=== PATIENT | female | born 1935 | race Caucasian/White ===

== ENCOUNTER → 2016-05-28 | Outpatient (CLI) | payer MEDICARE, BC ==
[~2016-05-28] MED LIST: AMIO200T2 PO; APIX5TAB; ATEN50TA PO; BUME0.5T11 PO; BUME1TAB17 PO; CALC-768 PO; DIVA500T37 PO; DONE5TAB19 PO; FERR324T PO; HYDR-4078 PO; LEVO112T7 PO; OMEP20CA4 PO; OSPE60TA2 PO; POLY17PO6 PO; POTA-81 PO; POTA10CA37 PO; PRAM1TAB3; PRED10TA PO; RIFA550T5 PO; SENN-152 PO; SERT-77 PO; VITA1CAP64 PO
== END ==
LOC: NWCC 08:37
PROVIDERS: ATTEND Internal Medicine
DX: L97.512 Non-pressure chronic ulcer of other part of right foot with fat layer exposed (principal); L60.0 Ingrowing nail; R60.0 Localized edema

== ENCOUNTER 2016-06-30 06:33 | Inpatient (IN) | payer MEDICARE, BC ==
[~2016-06-30] VITALS: Ht 160 cm; Wt 100.9 kg
[2016-06-30] VITALS (24 sets, daily range): BP systolic 88–186; BP diastolic 49–120; PULSE 60–75; RESP 15–35; TEMP 97.3; O2SAT 86–100; Ht 160 cm; Wt 100.9 kg
[~2016-06-30 06:33] MED LIST changes: -APIX5TAB; +APIX5TAB PO; -ATEN50TA PO; -BUME1TAB17 PO; -FERR324T PO; -POTA-81 PO; -PRAM1TAB3; +PRAM1TAB3 PO; -PRED10TA PO; -VITA1CAP64 PO
--- OUTSIDE RECORDS SUMMARY | 2016-06-30 06:39 | XMS REPORT | Continuity of Care Document ---
Author Author [facility] Organization [facility] Address Unknown Phone Unavailable Support Name Relationship Address Phone TAMI LIU Next Of Kin [address] [place] [address] Unavailable Insurance Providers Payer Name Policy Number Subscriber Name Relationship [facility] [id number] Andie Liu Self Medicare [id number] Andie Liu Self [facility] Other [id number] Andie Liu Self Problems No Known Problems or Medical conditions. Family History History Response Recorded Date/Time HX of Orthopedic Surgeries Y L4&L5 lumbar surgery; LT TKR; IT BAND RELEASE; [facility] 11/08/12 7:00pm Hx Abdominal Surgery Y OPEN CHOLECYSTECTOMY 11/08/12 7:00pm HX Cerebrovascular Accident N 11/08/12 7:00pm Hx Seizures N 11/08/12 7:00pm Hx Angina N 11/08/12 7:00pm Hx Congestive Heart Failure N HAS BEEN DEBATED, "FIELD REVIEWER SAYS NO" 7:00pm Hx Heart Attack N 11/08/12 7:00pm Hx Hypertension Y 11/08/12 7:00pm Hx Rheumatic Fever N 11/08/12 7:00pm Hx Chronic Obstructive Pulmonary Disease (COPD) N 11/08/12 7:00pm Hx Diabetes N 11/08/12 7:00pm Hx Clotting Problems N 11/08/12 7:00pm Hx Cancer Y Breast CA Left breast Lumpectomy in august 29 11/08/12 7:00pm Hx MRSA N 11/08/12 7:00pm HX of Cardiac Surgeries N 11/08/12 7:00pm HX of Reproductive Surgeries Y hysterectomy total/APPY 11/08/12 7:00pm HX of Endocrine Surgeries N 11/08/12 7:00pm HX of Throat Surgery Y tonsillectomy 11/08/12 7:00pm HX of Neurological Surgeries N 11/08/12 7:00pm HX of Genitourinary Surgeries N 11/08/12 7:00pm Social History History Response Recorded Date/Time Smoking Status Never smoker 11/08/12 7:00pm Chewing Tobacco Status N 11/08/12 7:00pm Hx Substance Use N 11/08/12 7:00pm Hx Alcohol Use N 11/08/12 7:00pm Has the pt used tobacco in the last 12 months N 09/29/12 4:13pm Allergies, Adverse Reactions, Alerts Allergen Type Severity Reaction Last Updated phenylbutazone Allergy Mild HIVES (BUTAZOLIDIN - MANU DISC) 11/08/12 lansoprazole Adverse Reaction Mild DIARRHEA 11/08/12 Medications Medication Dose Units Route Sig Qty Days Amlodipine Besylate 5 Mg PO DAILY Anastrozole (Arimidex) 1 Mg PO HS Vitamin B Complex 1 Cap PO BID Zolmitriptan (Zomig) 2 Tab PO PRN Spironolactone 1 Tab PO DAILY Potassium Chloride 2 Tab PO DAILY Pramipexole Di-Hcl (Mirapex) 1 Mg PO DAILY Atenolol 50 Mg PO DAILY Calcium Carbonate/Vitamin D3 (Calcium 500 + D Tablet) 1 Tab PO BID Furosemide (Lasix) 80 Mg PO PRN Esomeprazole Mag Trihydrate (Nexium) 40 Mg PO BID Meloxicam (Mobic) 7.5 Mg PO DAILY Levothyroxine Sodium (Levothroid) 100 Mcg PO DAILY Atorvastatin Calcium (Lipitor) 20 Mg PO DAILY Sertraline Hcl (Zoloft) 100 Mg PO DAILY Tizanidine Hcl 8 Mg PO HS Fexofenadine Hcl 180 Mg PO PRN Benazepril Hcl 40 Mg PO DAILY Letrozole (Femara) 1 Tab PO DAILY Immunizations Name Given Type Hx Influenza Vaccination Y DEC 2011 H Hx Pneumococcal Vaccination Y FALL 2010 H Response Recorded Date/Time Status not known Unknown Results No Known Relevant Diagnostic Tests, Laboratory Data and/or Discharge Summary. Procedures Procedure Code Date PARTICAL MASTECTOMY 86180 08/31/08 BIOPSY/REMOVAL LYMPH NODES 47735 08/31/08 RA TRACER ID OF SENTINL NODE 65513 08/31/08 PACKED CELL TRANSFUSION 99.04 04/24/09 INCISION OF NOSE 21.1 10/14/11 REPAIR OF NASAL SEPTUM 78390 02/06/12 THER FX NASAL INF TURBINATE 69562 02/06/12 [id number] CANCER SCREENING; COLONOSCOPY ON INDIVIDUAL G0121 06/04/12 MUSCULOSKELETAL SURGERY 87247 07/11/13 Blood Culture 10/13/11 Eye/Ear/Nose/Throat Culture 10/13/11 Encounters Encounter Location Date/Time Departed Emergency Room [facility] 11/08/12 6:53pm Discharged Inpatient [facility] 10/13/11 4:58pm
--- OUTSIDE RECORDS SUMMARY | 2016-06-30 06:39 | XMS REPORT | Continuity of Care Document ---
Author Author [facility] Organization [facility] Address Unknown Phone Unavailable Allergies Active Description Code Type Severity Reaction Onset Reported/Identified Relationship to Patient Clinical Status Yes Prevacid 12550 Unknown N/A 08/18/2014 Yes lansoprazole lansoprazole Drug Allergy Mild DIARRHEA 09/04/2015 Yes phenylbutazone phenylbutazone Drug Allergy Mild HIVES 09/04/2015 Medications Problems Date Dx Coded Attending Type Code Diagnosis Diagnosed By 09/21/2014 Deyvi Reza MD 244.9 HYPOTHYROIDISM NOS 09/21/2014 Deyvi Reza MD 272.0 PURE HYPERCHOLESTEROLEM 09/21/2014 Deyvi Reza MD 272.4 HYPERLIPIDEMIA NEC/NOS 09/21/2014 Deyvi Reza MD 280.1 IRON DEF ANEMIA DIETARY 09/21/2014 Deyvi Reza MD 285.1 AC POSTHEMORRHAG ANEMIA 09/21/2014 Deyvi eRza MD 287.5 THROMBOCYTOPENIA NOS 09/21/2014 Deyvi Reza MD 288.60 LEUKOCYTOSIS, UNSPECIFIED 09/21/2014 Deyvi Reza MD 311 DEPRESSIVE DISORDER NEC 09/21/2014 Deyvi Reza MD 333.94 RESTLESS LEGS SYNDROME 09/21/2014 Deyvi Reza MD 401.1 BENIGN HYPERTENSION 09/21/2014 Deyvi Reza MD 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 09/21/2014 Deyvi Reza MD 416.8 CHR PULMON HEART DIS NEC 09/21/2014 Deyvi Reza MD 427.31 ATRIAL FIBRILLATION 09/21/2014 Deyvi Reza MD 530.81 ESOPHAGEAL REFLUX 09/21/2014 Deyvi Reza MD 721.3 LUMBOSACRAL SPONDYLOSIS 09/21/2014 Deyvi Reza MD 722.10 LUMBAR DISC DISPLACEMENT 09/21/2014 Deyvi eRza MD 724.2 LUMBAGO 09/21/2014 Deyvi Reza MD 737.19 KYPHOSIS NEC 09/21/2014 Deyvi Reza MD V14.8 HX-DRUG ALLERGY NEC 09/21/2014 Deyvi Reza MD V45.01 CARDIAC PACEMAKER IN SITU 09/21/2014 Deyvi Reza MD V88.01 ACQUIRED ABSENCE OF BOTH CERVIX AND UTERUS 09/21/2014 Deyvi Reza MD 722.10 LUMBAR DISC DISPLACEMENT 09/21/2014 Deyvi Reza MD 724.2 LUMBAGO 10/05/2015 Dara Cade MD R94.5 ABNORMAL RESULTS OF LIVER FUNCTION STUDI 10/05/2015 Dara Cade MD R94.5 ABNORMAL RESULTS OF LIVER FUNCTION STUDI 04/07/2016 CAROLIN SMITH I10 ESSENTIAL (PRIMARY) HYPERTENSION CAROLIN SMITH 04/07/2016 CAROLIN SMITH Z79.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) DRUG THERAPY CAROLIN SMITH Procedures Code Description Performed By Performed On 41.98 BONE MARROW OPS Deyvi Salas MD 09/21/2014 77.79 EXCISE BONE FOR GFT Deyvi Salas MD 09/21/2014 80.51 EXCISION INTERVERT DISC Buck Castro MD 09/21/2014 81.05 DORSAL DORSOLUMBAR FUSION OF POSTERIOR COL/TECHN Deyvi Reza MD 09/21/2014 81.06 LUMBAR LUMBOSACRAL FUSION OF ANTERIOR COLUMN/PATRICIA Buck Castro MD 09/21/2014 81.63 FUSION/REFUS OF 4-8 VERTEBRAE Deyvi Reza MD 09/21/2014 84.51 INSERTION OF INTERBODY SPINAL FUSION DEVICE Buck Castro MD 09/21/2014 Results Test Result Range MRSA SURVEILLANCE SCREEN - 09/14/14 12:34 Microbiology CBC - 09/22/14 05:01 MEAN CELL HGB 32.5 pg 27.0-33.0 MEAN CELL HGB CONCENTRATION 31.9 g/dL 32.0-37.0 MEAN CELL VOLUME 101.7 fl 80.0-100.0 RED BLOOD CELL 3.02 m/cumm 4.00-6.00 RED CELL DISTRIBUTION WIDTH 14.4 % 11.0- 15.6 WHITE BLOOD CELL 17.3 k/cumm 5.0-10.0 HEMOGLOBIN 9.8 gm/dL 12.0-16.0 HEMATOCRIT 30.7 % 37.0-47.0 PLATELET COUNT 123 k/cumm 150-400 METABOLIC PANEL, BASIC - 09/22/14 05:01 POTASSIUM 4.4 mmol/L 3.5-5.3 EST GFR (MDRD) 48 mL/min > 59 ANION GAP 7 mmol/L 5-15 EST CrCl (CG) 46 mL/min > 59 GLUCOSE 164 mg/dL 70-99 CALCIUM 8.2 mg/dL 8.5-10.1 BLOOD UREA NITROGEN 24 mg/dL 7-20 CREATININE 1.1 mg/dL 0.6-1.0 SODIUM 144 mmol/L 135-148 CHLORIDE 108 mmol/L 98-110 CARBON DIOXIDE 29 mmol/L CBC - 09/23/14 04:56 MEAN CELL HGB 32.0 pg 27.0-33.0 MEAN CELL HGB CONCENTRATION 31.4 g/dL 32.0-37.0 MEAN CELL VOLUME 102.1 fl 80.0-100.0 RED BLOOD CELL 2.84 m/cumm 4.00-6.00 RED CELL DISTRIBUTION WIDTH 14.8 % 11.0- 15.6 WHITE BLOOD CELL 15.1 k/cumm 5.0-10.0 HEMOGLOBIN 9.1 gm/dL 12.0-16.0 HEMATOCRIT 29.0 % 37.0-47.0 PLATELET COUNT 103 k/cumm 150-400 METABOLIC PANEL, BASIC - 09/23/14 04:56 POTASSIUM 4.3 mmol/L 3.5-5.3 EST GFR (MDRD) 48 mL/min > 59 ANION GAP 7 mmol/L 5-15 EST CrCl (CG) 46 mL/min > 59 GLUCOSE 165 mg/dL 70-99 CALCIUM 9.0 mg/dL 8.5-10.1 BLOOD UREA NITROGEN 25 mg/dL 7-20 CREATININE 1.1 mg/dL 0.6-1.0 SODIUM 142 mmol/L 135-148 CHLORIDE 105 mmol/L 98-110 CARBON DIOXIDE 30 mmol/L CBC - 09/25/14 06:26 MEAN CELL HGB 32.2 pg 27.0-33.0 MEAN CELL HGB CONCENTRATION 31.1 g/dL 32.0-37.0 MEAN CELL VOLUME 103.4 fl 80.0-100.0 RED BLOOD CELL 2.64 m/cumm 4.00-6.00 RED CELL DISTRIBUTION WIDTH 14.8 % 11.0- 15.6 WHITE BLOOD CELL 12.6 k/cumm 5.0-10.0 HEMOGLOBIN 8.5 gm/dL 12.0-16.0 HEMATOCRIT 27.3 % 37.0-47.0 PLATELET COUNT 109 k/cumm 150-400 CBC W/DIFF - 09/04/15 12:03 EOSINOPHIL # 0.1 k/cumm 0.1-0.5 EOSINOPHIL % 1 % 2-4 GRANULOCYTE # 3.0 k/cumm 2.0-9.0 GRANULOCYTE % 61 % 50-75 LYMPHOCYTE # 1.4 k/cumm 1.0-4.0 LYMPHOCYTE % 30 % 20-30 MEAN CELL HGB 32.6 pg 27.0-33.0 MEAN CELL HGB CONCENTRATION 32.2 g/dL 32.0-37.0 MEAN CELL VOLUME 101.0 fl 80.0-100.0 MONOCYTE # 0.4 k/cumm 0.1-1.0 MONOCYTE % 8 % 4-6 RED BLOOD CELL 3.90 m/cumm 4.00-6.00 RED CELL DISTRIBUTION WIDTH 19.3 % 11.0- 15.6 WHITE BLOOD CELL 4.9 k/cumm 5.0-10.0 HEMOGLOBIN 12.7 gm/dL 12.0-16.0 HEMATOCRIT 39.4 % 37.0-47.0 PLATELET COUNT 83 k/cumm 150-400 MORPHOLOGY - 09/04/15 12:03 RBC MORPH NOTED METABOLIC PANEL, BASIC - 09/04/15 12:05 POTASSIUM 4.0 mmol/L 3.5-5.3 EST GFR (MDRD) 43 mL/min > 59 ANION GAP 5 mmol/L 5-15 EST CrCl (CG) 40 mL/min > 59 GLUCOSE 138 mg/dL 70-99 CALCIUM 8.8 mg/dL 8.5-10.1 BLOOD UREA NITROGEN 17 mg/dL 7-20 CREATININE 1.2 mg/dL 0.6-1.0 SODIUM 142 mmol/L 135-148 CHLORIDE 104 mmol/L 98-110 CARBON DIOXIDE 33 mmol/L 21-32 PROTHROMBIN TIME WITH INR - 09/04/15 12:05 INTERNATIONAL NORMAL RATIO 1.2 0.9-1.1 PROTHROMBIN TIME 13.0 sec 9.3-12.2 URINALYSIS, ROUTINE - 09/04/15 13:57 UA LEUKOCYTE ESTERASE DIPSTICK NEGATIVE NEGATIVE UA NITRITE DIPSTICK NEGATIVE NEGATIVE UA PROTEIN DIPSTICK NEGATIVE NEGATIVE UA GLUCOSE DIPSTICK NEGATIVE NEGATIVE UA KETONE DIPSTICK NEGATIVE NEGATIVE UA UROBILINOGEN DIPSTICK NORMAL NORMAL UA BILIRUBIN DIPSTICK NEGATIVE NEGATIVE UA BLOOD DIPSTICK NEGATIVE NEGATIVE UA SPECIFIC GRAVITY 1.008 1.015-1.025 UR PH 7.0 5.0-7.0 CBC W/DIFF - 09/11/15 16:48 GRANULOCYTE # 6.4 k/cumm 2.0-9.0 GRANULOCYTE % 75 % 50-75 LYMPHOCYTE # 1.6 k/cumm 1.0-4.0 LYMPHOCYTE % 19 % 20-30 MEAN CELL HGB 32.6 pg 27.0-33.0 MEAN CELL HGB CONCENTRATION 32.0 g/dL 32.0-37.0 MEAN CELL VOLUME 101.9 fl 80.0-100.0 MONOCYTE # 0.5 k/cumm 0.1-1.0 MONOCYTE % 5 % 4-6 RED BLOOD CELL 4.17 m/cumm 4.00-6.00 RED CELL DISTRIBUTION WIDTH 17.6 % 11.0- 15.6 WHITE BLOOD CELL 8.5 k/cumm 5.0-10.0 HEMOGLOBIN 13.6 gm/dL 12.0-16.0 HEMATOCRIT 42.5 % 37.0-47.0 PLATELET COUNT 93 k/cumm 150-400 METABOLIC PANEL, COMPREHN - 09/11/15 16:48 POTASSIUM 3.9 mmol/L 3.5-5.3 EST GFR (MDRD) 48 mL/min > 59 ANION GAP 7 mmol/L 5-15 EST CrCl (CG) 44 mL/min > 59 GLUCOSE 94 mg/dL 70-99 CALCIUM 9.3 mg/dL 8.5-10.1 BLOOD UREA NITROGEN 15 mg/dL 7-20 CREATININE 1.1 mg/dL 0.6-1.0 SODIUM 142 mmol/L 135-148 CHLORIDE 103 mmol/L 98-110 AST/SGOT 67 Units/L 10-37 ALT/SGPT 49 Units/L < 66 CARBON DIOXIDE 32 mmol/L 21-32 TOTAL PROTEIN 7.3 gm/dL 6.4-8.2 ALBUMIN 3.4 gm/dL 3.4-5.0 BILI TOTAL 0.4 mg/dL 0.0-1.0 ALKALINE PHOSPHATASE TOTAL 76 IU/L 45- 117 PROTHROMBIN TIME WITH INR - 10/05/15 12:55 INTERNATIONAL NORMAL RATIO 1.1 0.9-1.1 PROTHROMBIN TIME 12.7 sec 10.0-12.9 PARTIAL THROMBOPLASTIN TIME - 10/05/15 12:55 PARTIAL THROMBOPLASTIN TIME 37 sec 23-39 PLATELET COUNT - 10/05/15 13:35 PLATELET COUNT 89 k/cumm 150-400 CBC NO DIFF (HEMOGRAM) - 04/03/16 12:05 WBC - WHITE CELL COUNT 6.8 X10(3) 4.5-11.0 RBC - RED CELL COUNT 4.08 X10(6) 4.20-5.40 PLATELET COUNT 85 X10(3) 150-450 HEMOGLOBIN 13.5 g/dl 12.0-16.0 HEMATOCRIT 40.2 % 38.0-47.0 MCV 98.5 fL 80.0-96.0 MCH 33 pg 27-31 MCHC 33.6 % 32.0-36.0 CMP - COMPREHENSIVE METABOLIC PANEL - 04/03/16 12:05 GLUCOSE 133 mg/dl 74-106 BUN 19 mg/dl 7-18 CREATININE 1.18 mg/dl 0.55-1.02 eGFR 44 mL/min SODIUM (NA) 142 mEq/L 136-146 POTASSIUM, BLOOD 4.3 mEq/L 3.5-5.1 CHLORIDE 103 mEq/L 98-107 CO2 (BICARBONATE) 36 mEq/L 21-32 CALCIUM 9.7 mg/dl 8.5-10.1 ALBUMIN, SERUM 3.5 g/dl 3.4-5.0 PROTEIN, TOTAL 7.0 g/dl 6.4-8.2 AST (SGOT) 48 U/L 15-37 ALT (SGPT) 50 U/L 14-59 ALK PHOS 59 U/L 46-116 BILIRUBIN, TOTAL 0.5 mg/dl 0.2-1.0 TSH - 04/03/16 12:05 TSH 7.04 uIU/ml 0.36-3.74 T4 - 04/03/16 12:05 T4 11.60 ug/dl 4.80-13.90 Encounters ACCT No. Visit Date/Time Discharge Status Pt. Type Provider Facility Loc./Unit Complaint [id number] 10/10/2015 15:15:00 2015 15:15:00 CAN Outpatient Alyssia DOWNING, [facility] W.RODGER [id number] 10/05/2015 12:15:00 2015 16:35:00 DIS Outpatient Alyssia DOWNING, [facility] W.JOHANEN [id number] 09/21/2014 05:06:00 2014 14:16:00 DIS Inpatient Juaquin DOWNING, [facility] W.9TN [id number] 09/14/2014 10:34:00 2014 10:34:00 DIS Outpatient Juaquin DOWNING, [facility] W.POA [id number] 09/11/2015 10:30:00 PEN Outpatient Alyssia DOWNING, [facility] W.END [id number] 08/31/2015 05:31:00 Document Registration
--- OUTSIDE RECORDS SUMMARY | 2016-06-30 06:39 | XMS REPORT | Continuity of Care Document ---
Author Author [facility] Organization [facility] Address Unknown Phone Unavailable Support Name Relationship Address Phone TERRY MALHOTRA MD Caregiver [address] [place] [address] Ext [phone] MYLENE GARCIA MD Caregiver [address] [place] [address] [place] [phone] TAMI LIU DPOA Next Of Kin [address] [place] [employer], [place] [id number] Insurance Providers Payer Name Policy Number Subscriber Name Relationship Medicare [id number] Andie Liu [address] [facility] Other [id number] Andie Liu 19 Self [facility] [id number] Andie Liu 19 Self Advance Directives Directive Response Recorded Date/Time Ordered Resuscitation Status Full Code 04/19/14 7:30am Resuscitation Documents on File No 04/19/14 9:20am Chief Complaint and Reason for Visit Chief Complaint General Reason for Visit [id number] Gastroenteritis Hypokalemia Problems Medical Problems Problem Onset Date Status Acute kidney injury 11/25/2013 Active Acute kidney injury Unknown Active Hypotension Unknown Active Gastroenteritis 02/04/2014 Active UTI (lower urinary tract infection) Unknown Active Gastroenteritis Unknown Active Hypokalemia Unknown Active Medications Medication Dose Route Sig Days/Qty Instructions Order Date Discontinued Date Status Amlodipine Besylate 10 Mg PO DAILY 09/27/09 10/13/11 Discontinued Tizanidine Hcl 8 Mg PO BEDTIME 09/27/09 11/25/13 Discontinued Sertraline Hcl 50 Mg PO DAILY 09/27/09 Active Atorvastatin Calcium 20 Mg PO DAILY 09/27/09 Active Levothyroxine Sodium 100 Mcg PO DAILY 09/27/09 Active Triamcinolone Acetonide 2 Sprays NS DAILY 04/20/09 09/27/09 Discontinued Benazepril Hcl 40 Mg PO DAILY 09/27/09 02/05/12 Discontinued Rizatriptan Benzoate 10 Mg PO NEEDED 08/31/08 09/27/09 Discontinued Atenolol 50 Mg PO DAILY 09/27/09 11/25/13 Discontinued Pramipexole Di-Hcl 1 Mg PO DAILY 09/27/09 11/25/13 Discontinued Multivitamins 1 Tab PO DAILY 04/20/09 09/27/09 Discontinued Ferrous Sulfate 325 ( PO TWICE A DAY 04/20/09 09/27/09 Discontinued Fexofenadine Hcl 180 Mg PO NEEDED 09/27/09 02/05/12 Discontinued Letrozole 1 Tab PO DAILY 09/27/09 10/13/11 Discontinued Potassium Chloride 2 Tab PO DAILY 09/27/09 11/25/13 Discontinued Vitamin B Complex 1 Cap PO TWICE A DAY 09/27/09 Active Anastrozole 1 Mg PO BEDTIME 10/13/11 11/25/13 Discontinued Hydrocodone/Acetaminophen 60 Qty 11/23/13 Active Apixaban TWICE A DAY 180 Qty 11/23/13 Active Amlodipine Besylate 90 Qty 11/23/13 11/25/13 Discontinued Amiodarone HCl TWICE A DAY 180 Qty 11/23/13 11/25/13 Discontinued Pantoprazole Sodium 90 Qty 11/23/13 Active Atorvastatin Calcium 90 Qty 11/23/13 11/25/13 Discontinued Divalproex Sodium BEDTIME 90 Qty 11/23/13 Active Amiodarone HCl 200 Mg PO DAILY 30 Qty 11/25/13 Active Atenolol 50 Mg PO TWICE A DAY 60 Qty 11/25/13 Active Tizanidine HCl 4 Mg PO BEDTIME 30 Qty 11/25/13 Active Acetaminophen 2 Tab PO TWICE A DAY PRN PAIN Do not exceed 3,200 mg of acetaminophen in a 24 hours 02/02/14 Active Cholecalciferol (Vitamin D3) Unknown Dose PO TWICE A DAY 02/02/14 Active Nitroglycerin 0.4 Mg SL NEEDED PRN CHEST TIGHTNESS 02/02/14 Active Prednisone 1 04/19/14 Active Pramipexole Di-HCl 04/19/14 Active Social History Social History Problem Response Recorded Date/Time Chewing Tobacco Status No 11/11/2012 5:10pm Hx Substance Use No 02/02/2014 2:31pm Hx Alcohol Use No 02/02/2014 2:31pm Has the pt used tobacco in the last 12 months No 04/19/2014 9:32am Query Response Start Date Stop Date Smoking Status Never smoker Hospital Discharge Instructions Instructions: Care Instructions: Reason for Hospitalization: gastroenteritis, weakness, hypokalemia I was in the hospital because (patient own words): I fell out of the chair and I couldnt get up, I was shaky and weak. Discharge Diet: regular Follow Up Appointments: Schedule recheck appt. for 02/10/14. Condition at time of discharge: Good Patient Instructions: SEE CYSTO DISMISSAL INSTRUCTIONS Condition at time of discharge: Good Plan of Care Discharge Date 02/04/14 1:09pm Disposition 02 TO [facility]BS [facility] [place], [place] Condition at Discharge Stable Instructions/Education Provided DI for Hypokalemia DI for Bacterial Gastroenteritis -- Adult Prescriptions See Medications Section Referrals MYLENE GARCIA MD Functional Status Query Response Date Recorded Physical Hygiene Self February 04, 2014 12:03pm Physical Hygiene Self February 04, 2014 12:03pm Allergies, Adverse Reactions, Alerts Allergen Type Severity Reaction Status Last Updated Phenylbutazone Allergy Mild HIVES (BUTAZOLIDIN - MANU DISC) Active Lansoprazole Adverse Reaction Mild DIARRHEA Active 04/19/14 Immunizations Name Given Type Hx Influenza Vaccination Y NOV 2013 Historical Hx Pneumococcal Vaccination Y 2011 Historical Hx Influenza Vaccination Y NOV 2013 Historical Vital Signs Acute Vital Signs Vital Response Date/Time Temperature (Fahrenheit) 96.7 deg F (96.8 - 99.1) Temperature (Calculated Celsius) 35.08881 degrees C (36.0 - 37.3) Temperature Source Oral Pulse Rate (adult) 62 bpm (60 - 100) O2 Sat by Pulse Oximetry 98 % (90 - 100) Oxygen Delivery Method Room Air Blood Pressure 114/59 mm Hg Blood Pressure Source Automatic Cuff Height 5 ft 4 in Weight 175 lb Body Mass Index 30.0 kg/m^2 Results Test Source Date Result Interp. Ref. Range Comments Absolute Reticulocyte Count September 28, 2009 5:45am 0.0196 T/MM3 L 0.0300- 0.0900 Activated Partial Thromboplast Time November 23, 2013 12:44pm 31.0 SEC N 24-36 Adrenocorticotropic Hormone October 09, 2009 9:30am Sent out - Alanine Aminotransferase (ALT/SGPT) February 02, 2014 1:15pm 40 U/L N 9- 52 Albumin February 02, 2014 1:15pm 4.2 G/DL N 3.5-5.0 Albumin/Globulin Ratio February 02, 2014 1:15pm 1.4 RATIO N 1.1-2.2 Alcohol, Quantitative November 23, 2013 12:44pm <10 MG/DL - Alkaline Phosphatase February 02, 2014 1:15pm 75 U/L N 38-126 Anion Gap February 04, 2014 6:18am 6 MEQ/L N 5-15 Aspartate Amino Transf (AST/SGOT) February 02, 2014 1:15pm 49 U/L H 14- 36 B-Type Natriuretic Peptide September 27, 2009 11:10am 100 PG/ML N 15-100 BUN/Creatinine Ratio February 04, 2014 6:18am 9 RATIO N 6-26 Basophils # (Auto) February 04, 2014 6:18am 0.0 T/MM3 N 0-0.2 Basophils (%) (Auto) February 04, 2014 6:18am 0.2 % N 0-2 Blood Urea Nitrogen February 04, 2014 6:18am 7.0 MG/DL N 7-17 C-Reactive Protein October 13, 2011 5:25pm 29.2 MG/L H 0-9 C. difficile Toxin B Gene (PCR) February 03, 2014 8:45am Negative - If Toxin A is clinically indicated, treat accordingly. Calcium Level February 04, 2014 6:18am 9.8 MG/DL N 8.4-10.2 Calculated Osmolality February 04, 2014 6:18am 269 MOSM/KG N 261-280 Carbon Dioxide Level February 04, 2014 6:18am 28 MEQ/L N 22-30 Chemistry Specimen Hemolysis February 04, 2014 6:18am < 15 0-25 0-25 : No Hemolysis.26-70: Slight Hemolysis - can falsely elevate K and Urine Protein. 71-285: Moderate Hemolysis - can falsely elevate K, Troponin I, CA 19-9, PTH, CSF GLucose, and Urine Protein, and can falsely decrease Phenytoin. 286-999: Gross Hemolysis - can falsely elevate K, Troponin I, CA 19-9, PTH, CSF Glucose, and Urine Protine, and can falsely decrease Phenytoin. Recommend specimen recollection. Chloride Level February 04, 2014 6:18am 107 MEQ/L N 98-107 Cortisol AM Sample October 09, 2009 8:00am 18.8 UG/DL N 10.4-26.4 Cortisol PM Sample September 27, 2009 4:00pm 11.6 UG/DL - Cortisol Response to Stim 1 Hour October 09, 2009 9:30am 27.8 UG/DL - CALL RESULTS TO DR. GARCIA STAT Creatinine February 04, 2014 6:18am 0.8 MG/DL N 0.7-1.2 EKG March 20, 2009 3:14pm Complete - FAX [phone] Eosinophils # (Auto) February 04, 2014 6:18am 0.1 T/MM3 N 0-0.5 Eosinophils (%) (Auto) February 04, 2014 6:18am 2.1 % N 0-4 Erythrocyte Sedimentation Rate February 04, 2014 6:18am 53 MM/HR H 0-20 Ferritin September 28, 2009 5:45am 34.7 NG/ML N 11-264 Free Thyroxine November 23, 2013 12:44pm 1.78 NG/DL N 0.78-2.19 Globulin February 02, 2014 1:15pm 3.1 G/DL N 2.4-3.6 Glomerular Filtration Rate Calc February 04, 2014 6:18am 70 - Glucometer September 27, 2009 11:06am 116 mg/dL H 65-110 Glucose Level February 04, 2014 6:18am 101 MG/DL N 65-110 Hematocrit February 04, 2014 6:18am 30.3 % L 36-46 Hemoglobin February 04, 2014 6:18am 9.3 GM/DL L 12-16 Icterus Index February 04, 2014 6:18am < 2 0-7 Immature Granulocyte # (Auto) February 04, 2014 6:18am 0.01 T/MM3 N 0.00 -0.03 Immature Granulocyte % (Auto) February 04, 2014 6:18am 0.2 % N 0.0-0.5 Immature Reticulocyte Fraction September 28, 2009 5:45am 7.2 % N 3.3-14.5 Iron Level September 28, 2009 5:45am 89 UG/DL N 37-170 Lab Scanned Report December 08, 2013 7:36pm LAB TEST FORM REQUEST [id number] - Lactate Dehydrogenase March 20, 2009 3:15pm 535 U/L N 313-618 Lipase February 02, 2014 1:15pm 82 U/L N 23-300 Lymphocytes # (Auto) February 04, 2014 6:18am 1.9 T/MM3 N 1-4.8 Lymphocytes (%) (Auto) February 04, 2014 6:18am 44.0 % N 23-45 Mean Corpuscular Hemoglobin February 04, 2014 6:18am 29.4 UUG N 26-34 Mean Corpuscular Hemoglobin Concent February 04, 2014 6:18am 30.7 GM/DL L 31-37 Mean Corpuscular Volume February 04, 2014 6:18am 95.9 UM3 N 80-100 Mean Platelet Volume February 04, 2014 6:18am 11.1 UM3 N 9.4-12.4 Monocytes # (Auto) February 04, 2014 6:18am 0.4 T/MM3 N 0-0.8 Monocytes (%) (Auto) February 04, 2014 6:18am 10.2 % H 0-9.0 KN-Akb-I-Type Natriuretic Peptide December 02, 2013 3:55pm 1720 PG/ML H 0-175 Rule in cut points: <50 years old=450; 50-75 years old=900; >75 years old=1800; When utilizing ProBNP rule-in cut points, adjustment for impaired renal function is typically not required. Neutrophils # (Auto) February 04, 2014 6:18am 1.8 T/MM3 N 1.8-7.7 Neutrophils (%) (Auto) February 04, 2014 6:18am 43.3 % N 33-66 Percent Iron Saturation September 28, 2009 5:45am 26 % N 9-55 Percent Reticulocyte Count September 28, 2009 5:45am 0.6 % N 0.6-1.7 Platelet Count April 19, 2014 9:58am 111 T/MM3 L 130-400 COMMENT NURSE WILL CALL WHEN PATIENT ARRIVES Potassium Level February 04, 2014 6:18am 4.3 MEQ/L N 3.6-5 Procalcitonin February 02, 2014 2:23pm < 0.05 NG/ML - PCT </=0.5 ng/ mL - sepsis not likely;PCT >0.5 and </=2 ng/mL - sepsis possible; PCT >2 ng/mL - sepsis likely; PCT >/=10 ng/mL - systemic inflammatory response - sepsis or septic shock highly indicated. Prothromb Time International Ratio April 19, 2014 9:58am 1.13 H 0.81- 1.09 THERAPUTIC RANGE=2.00-3.00 FOR ANTI-THROMBOSIS THERAPUTIC RANGE=2.50- 3.50 FOR IMPLANTED VALVE RDW Standard Deviation February 04, 2014 6:18am 47.2 FL N 36.9-50.2 Random Vancomycin Level October 14, 2011 11:28am 10.47 UG/ML N 0-40 COMMENT PER VANCOMYCIN PROTOCOL Red Blood Count February 04, 2014 6:18am 3.16 M/MM3 L 4.00-5.20 Sodium Level February 04, 2014 6:18am 141 MEQ/L N 134-144 Stool Occult Blood April 29, 2009 11:30am Negative - Has specimen been collected/obtained? Y Stool for White Cells February 03, 2014 8:45am Positive - Has specimen been collected/obtained? Y Tests Not Done March 20, 2009 2:45pm Not done - PLEASE WARES SORTER Thyroid Stimulating Hormone (TSH) November 23, 2013 12:44pm 4.67 MIU/L N 0.47-4.68 Total Bilirubin February 02, 2014 1:15pm 0.70 MG/DL N 0.20-1.30 Total Creatine Kinase March 20, 2009 3:15pm 251 U/L H 30-135 Total Iron Binding Capacity September 28, 2009 5:45am 343 UG/DL N 261-497 Total Protein February 02, 2014 1:15pm 7.3 G/DL N 6.3-8.2 Troponin I February 02, 2014 1:15pm < 0.012 ng/ml 0-0.12 Turbidity February 04, 2014 6:18am < 20 0-20 Urine Bacteria February 02, 2014 4:11pm 4+ H - Has specimen been collected/obtained? Y Urine Bilirubin February 02, 2014 4:11pm Negative - Has specimen been collected/obtained? Y Urine Blood February 02, 2014 4:11pm 1+ H - Has specimen been collected /obtained? Y Urine Collection Type February 02, 2014 4:11pm Voided-not cc-midstr - Has specimen been collected/obtained? Y Urine Color February 02, 2014 4:11pm Yellow - Has specimen been collected/obtained? Y Urine Culture Indicated February 02, 2014 4:11pm Cult reflexed &setup - Has specimen been collected/obtained? Y Urine Glucose (UA) February 02, 2014 4:11pm Negative - Has specimen been collected/obtained? Y Urine Hyaline Casts November 23, 2013 2:15pm 5-10 /LPF - Has specimen been collected/obtained? Y Urine Ketones February 02, 2014 4:11pm Negative - Has specimen been collected/obtained? Y Urine Leukocyte Esterase February 02, 2014 4:11pm Trace H - Has specimen been collected/obtained? Y Urine Microscopic Not Indicated October 13, 2011 5:20pm Not indicated - Has specimen been collected/obtained? Y Urine Mucus February 02, 2014 4:11pm Present - Has specimen been collected/obtained? Y Urine Nitrite February 02, 2014 4:11pm Positive H - Has specimen been collected/obtained? Y Urine Protein February 02, 2014 4:11pm Negative - Has specimen been collected/obtained? Y Urine RBC February 02, 2014 4:11pm 0-1 /HPF - Has specimen been collected/obtained? Y Urine Random Creatinine November 23, 2013 3:47pm 282.1 MG/DL - Urine Random Sodium November 23, 2013 2:15pm 36 MEQ/L N 30-90 Has specimen been collected/obtained? Y Urine Specific [place] February 02, 2014 4:11pm 1.020 - Has specimen been collected/obtained? Y Urine Squamous Epithelial Cells February 02, 2014 4:11pm 5-10 - Has specimen been collected/obtained? Y Urine Turbidity February 02, 2014 4:11pm Cloudy - Has specimen been collected/obtained? Y Urine Urobilinogen February 02, 2014 4:11pm 0.2 EU/DL - Has specimen been collected/obtained? Y Urine WBC February 02, 2014 4:11pm 10-20 /HPF H - Has specimen been collected/obtained? Y Urine WBC Clumps February 02, 2014 4:11pm Few - Has specimen been collected/obtained? Y Urine pH February 02, 2014 4:11pm 5.5 - Has specimen been collected/ obtained? Y Valproic Acid (Depakene) Level November 23, 2013 12:43pm 42.0 UG/ML L 50-120 Venous Blood Lactate February 02, 2014 2:23pm 2.2 MMOL/L N 0.6-2.2 White Blood Count February 04, 2014 6:18am 4.2 T/MM3 L 4.5-11.0 Blood Culture Blood November 23, 2013 12:51pm NO GROWTH AFTER 5 DAYS Shiga Toxin I & II Stool February 03, 2014 8:45am Eye/Ear/Nose/Throat Culture Nares-Left October 13, 2011 7:20pm Staphylococcus Aureus Urine Culture Urine, Voided-Not Cc-Midstream February 02, 2014 4:35pm Kleb Pneumoniae Ssp Pneumoniae Gram Stain Buttock-Left November 08, 2012 7:06pm Name: ANDIE LIU Unit #: [id number] : 1935 Sex: F Loc / Svc: SRG DOS: 04/19/14 Signed Report #: [id number] DIAGNOSTIC IMAGING REPORT TYPE OF EXAM: CT LUMBAR SPINE W/CONTRAST Dictated By: TERRY MALHOTRA MD INDICATION: ITS.REASON: 724.[address] LUMBAR SPINE W/CONTRAST: Comparison: Lumbar spine radiographs dated April 19, 2014 Technique: Axial CT images were performed through the lumbar spine after the administration of myelographic contrast. Coronal and sagittal two-dimensional reformats. Findings: Posterior L2-L5 spinal fusion is redemonstrated with decompression. Hardware appears intact. No acute vertebral compression fractures. Paraspinal soft tissues show no significant abnormality. The conus medullaris terminates normally at T12. Segmental analysis: T10-T11: Normal T11-T12: Normal T12-L1: Normal L1-L2: Severe disk height loss with subchondral sclerosis. There is a small central disk protrusion as well. This results in mild central canal narrowing. Severe right and [id number] left neural foraminal stenosis L2-L3: Posterior decompression. No significant disk herniation. No significant neural foraminal stenosis. L3-L4: Posterior decompression. No significant disk herniation. No significant neural foraminal stenosis. L4-L5: No significant disk herniation. No neural foraminal stenosis. Posterior decompression. L5-S1: No significant disk herniation. There appears to be a bony fragment or fractured osteophyte in the left neural foramen causing at least moderate neural foraminal stenosis and abutting the exiting L5 nerve root. No significant right foraminal stenosis. Posterior decompression. Impression: Areas of neural foraminal stenosis as above. There appears to be a bony fragment in the neural foramen on the left at L5-S1. . Procedures Procedure Status Date Provider(s) DXA BONE DENSITY AXIAL completed 02/08/14 Encounters Encounter Location Date/Time Departed Clinic [facility] 04/19/14 8:56am Registered Clinic [facility] 02/08/14 8:34am Discharged Inpatient [facility] 02/03/14 6:28pm
--- OUTSIDE RECORDS SUMMARY | 2016-06-30 06:42 | XMS REPORT | Continuity of Care Document ---
Author Author [facility] Organization [facility] Address Unknown Phone Unavailable Support Name Relationship Address Phone SHAMA SULLIVAN MD Caregiver [address] [place] [phone] MYLENE GARCIA MD Caregiver [address] [place] [address] [phone] TAMI LIU Next Of Kin [address] [place] [address] Insurance Providers Payer Name Policy Number Subscriber Name Relationship Medicare [id number] Andie Liu 18 Self [facility] Other [id number] Andie Liu 18 Self [facility] [id number] Andie Liu 18 Self Advance Directives Directive Response Recorded Date/Time Advanced Directives Type None 11/23/13 4:13pm Ordered Resuscitation Status Full Code 11/23/13 3:45pm Resuscitation Documents on File No 11/23/13 5:53pm Chief Complaint and Reason for Visit Chief Complaint WEAKNESS Reason for Visit Acute kidney injury Problems Medical Problems Problem Onset Date Status Acute kidney injury 11/25/2013 Active Medications Medication Dose Route Sig Days/Qty Instructions Order Date Discontinued Date Status Amlodipine Besylate 10 Mg PO DAILY 09/27/09 10/13/11 Discontinued Tizanidine Hcl 8 Mg PO BEDTIME 09/27/09 11/25/13 Discontinued Sertraline Hcl 100 Mg PO DAILY 09/27/09 Active Atorvastatin Calcium 20 Mg PO DAILY 09/27/09 Active Levothyroxine Sodium 100 Mcg PO DAILY 09/27/09 Active Triamcinolone Acetonide 2 Sprays NS DAILY 04/20/09 09/27/09 Discontinued Benazepril Hcl 40 Mg PO DAILY 09/27/09 02/05/12 Discontinued Calcium Carbonate/Vitamin D3 1 Tab PO TWICE A DAY 09/27/09 Active Rizatriptan Benzoate 10 Mg PO NEEDED 08/31/08 [...] 11/25/13 Discontinued Hydrocodone/Acetaminophen 60 Qty 11/23/13 Active Losartan Potassium 90 Qty 11/23/13 Active Apixaban TWICE A DAY 180 Qty 11/23/13 Active Amlodipine Besylate 90 Qty 11/23/13 11/25/13 Discontinued Amiodarone HCl TWICE A DAY 180 Qty 11/23/13 11/25/13 Discontinued Pantoprazole Sodium 90 Qty 11/23/13 Active Meloxicam 90 Qty 11/23/13 Active Atorvastatin Calcium 90 Qty 11/23/13 11/25/13 Discontinued Divalproex Sodium BEDTIME 90 Qty 11/23/13 Active Amiodarone HCl 200 Mg PO DAILY 30 Qty 11/25/13 Active Atenolol 50 Mg PO TWICE A DAY 60 Qty 11/25/13 Active Pramipexole Di-HCl 0.5 Mg PO BEDTIME 15 Qty 11/25/13 Active Tizanidine HCl 4 Mg PO BEDTIME 30 Qty 11/25/13 Active Social History Social History Problem Response Recorded Date/Time Smoking Status Never smoker 11/23/2013 7:25pm Chewing Tobacco Status No 11/11/2012 5:10pm Hx Substance Use No 11/23/2013 11:27am Hx Alcohol Use No 11/23/2013 11:27am Has the pt used tobacco in the last 12 months No 09/29/2012 4:13pm Query Response Start Date Stop Date Smoking Status Never smoker Hospital Discharge Instructions Instructions: Care Instructions: Reason for Hospitalization: Weakness, Acute Renal Injury, hypotension, confusion, dehydration I was in the hospital because (patient own words): I was shaky and weak Discharge Diet: regular Follow Up Appointments: follow up lab - come to lab at [facility] on Monday December 02, 2013 to have BMP drawn. Condition at time of discharge: Good Work on slow steady weight loss. Wound/Incision Care: No wound care required. Continue to use hernia belt for support. Notify Physician If: You develop persistent nausea or severe abdominal pain Condition at time of discharge: Good 1.Take your anticoagulant (Aspirin, Coumadin, Lovenox,etc) as directed Driving 1.May drive in 4 weeks if you had your LEFT extremity operated on. 2.May drive in 6 weeks if you had your RIGHT extremity operated on. Wound/Incision Care: Tegaderm 1.Clear dressing is to remain in place for 2 weeks. 2.Do not pick at it or scrub it while showering. 3.If the dressing begins to pull up, secure it with 4x4 gauze pad and tape. 4.You may shower; however, do not submerge yourself in water until the incision is completely healed. Mepilex 1.Dressing to remain in place until your follow up appointment. 2.If this dressing starts peeling up slightly, it may be reinforced, if it peels excessively, notify your surgeon's office. 3.You may shower with the dressing in place, but do not submerge in water 4.Do not allow water to seep under the dressing, if it should seep under, remove the dressing and notify your surgeon. Notify Physician If: Call your Surgeon if you have: 1.Chest pain, difficulty breathing, fever>100.5 degrees, chills, heart rate >100, confusion, or persistent nausea/vomitting. 2.Severe pain, swelling, redness, or warmth in either of your legs. 3.During office hours, call [phone] 4. After hours, please call [facility] at [phone], and have the data entry machine operator page your Surgeon IN THE EVENT OF AN EMERGENCY, seek medical care at the nearest Emergency Room Condition at time of discharge: Good Good Plan of Care Discharge Date 11/25/13 6:48pm Disposition 01 DISCHARGED HOME, SELF-CARE Instructions/Education Provided Diarrhea DI for Dehydration -- Adult DI for Hypotension Prescriptions See Medications Section Functional Status Query Response Date Recorded Physical Hygiene Self November 25, 2013 6:03pm Disabilities None November 25, 2013 6:03pm Devices Used None November 25, 2013 6:03pm Dressing Self November 25, 2013 6:03pm Ambulation Self November 25, 2013 6:03pm Diet Self November 25, 2013 6:03pm Mental Status Alert Oriented November 25, 2013 6:03pm Disabilities None November 25, 2013 6:03pm Devices Used None November 25, 2013 6:03pm Physical Hygiene Self November 25, 2013 6:03pm Dressing Self November 25, 2013 6:03pm Ambulation Self November 25, 2013 6:03pm Diet Self November 25, 2013 6:03pm Allergies, Adverse Reactions, Alerts Allergen Type Severity Reaction Status Last Updated Phenylbutazone Allergy Mild HIVES (BUTAZOLIDIN - MANU DISC) Active Lansoprazole Adverse Reaction Mild DIARRHEA Active 11/08/12 Immunizations Name Given Type Hx Influenza Vaccination Yes Historical Hx Pneumococcal Vaccination Yes Historical Hx Influenza Vaccination Yes Historical Vital Signs Acute Vital Signs Vital Response Date/Time Temperature (Fahrenheit) 97.5 deg F (96.8 - 99.1) Temperature (Calculated Celsius) 36.63802 degrees C (36.0 - 37.3) Temperature Source Oral Pulse Rate (adult) 66 bpm (60 - 100) Respiratory Rate 17 breaths/min (10 - 20) O2 Sat by Pulse Oximetry 94 % (90 - 100) Oxygen Delivery Method Room Air Blood Pressure 121/65 mm Hg Blood Pressure Source Automatic Cuff Height 5 ft 4.5 in Weight 195 lb Body Mass Index 33.0 kg/m^2 Results Test Source Date Result Interp. Ref. Range Comments Absolute Reticulocyte Count September 28, 2009 5:45am 0.0196 T/MM3 L 0.0300- 0.0900 Activated Partial Thromboplast Time November 23, 2013 12:44pm 31.0 SEC N 24-36 Adrenocorticotropic Hormone October 09, 2009 9:30am Sent out - Alanine Aminotransferase (ALT/SGPT) November 23, 2013 12:44pm 60 U/L H 9-52 Albumin November 23, 2013 12:44pm 3.4 G/DL L 3.5-5.0 Albumin/Globulin Ratio November 23, 2013 12:44pm 1.2 RATIO N 1.1-2.2 Alcohol, Quantitative November 23, 2013 12:44pm <10 MG/DL - Alkaline Phosphatase November 23, 2013 12:44pm 67 U/L N 38-126 Anion Gap November 25, 2013 5:42am 8 MEQ/L N 5-15 Aspartate Amino Transf (AST/SGOT) November 23, 2013 12:44pm 80 U/L H 14 -36 B-Type Natriuretic Peptide September 27, 2009 11:10am 100 PG/ML N 15-100 BUN/Creatinine Ratio November 25, 2013 5:42am 9 RATIO N 6-26 Basophils # (Auto) November 24, 2013 4:55am 0.0 T/MM3 N 0-0.2 Basophils (%) (Auto) November 24, 2013 4:55am 0.2 % N 0-2 Blood Urea Nitrogen November 25, 2013 5:42am 9.0 MG/DL N 7-17 C-Reactive Protein October 13, 2011 5:25pm 29.2 MG/L H 0-9 Calcium Level November 25, 2013 5:42am 9.4 MG/DL DN 8.4-10.2 Calculated Osmolality November 25, 2013 5:42am 273 MOSM/KG N 261-280 Carbon Dioxide Level November 25, 2013 5:42am 30 MEQ/L N 22-30 Chemistry Specimen Hemolysis November 25, 2013 5:42am < 15 0-25 0-25 : No Hemolysis.26-70: [...] decrease Phenytoin. Recommend specimen recollection. Chloride Level November 25, 2013 5:42am 103 MEQ/L N 98-107 Cortisol AM Sample October 09, 2009 8:00am 18.8 UG/DL N 10.4-26.4 Cortisol PM Sample September 27, 2009 4:00pm 11.6 UG/DL - Cortisol Response to Stim 1 Hour October 09, 2009 9:30am 27.8 UG/DL - CALL RESULTS TO DR. GARCIA STAT Creatinine November 25, 2013 5:42am 1.0 MG/DL DN 0.7-1.2 EKG March 20, 2009 3:14pm Complete - FAX [phone] Eosinophils # (Auto) November 24, 2013 4:55am 0.1 T/MM3 N 0-0.5 Eosinophils (%) (Auto) November 24, 2013 4:55am 3.2 % N 0-4 Erythrocyte Sedimentation Rate October 13, 2011 5:25pm 70 MM/HR H 0-20 Ferritin September 28, 2009 5:45am 34.7 NG/ML N 11-264 Free Thyroxine November 23, 2013 12:44pm 1.78 NG/DL N 0.78-2.19 Globulin November 23, 2013 12:44pm 2.8 G/DL N 2.4-3.6 Glomerular Filtration Rate Calc November 25, 2013 5:42am 54 - Glucometer September 27, 2009 11:06am 116 mg/dL H 65-110 Glucose Level November 25, 2013 5:42am 147 MG/DL H 65-110 Hematocrit November 24, 2013 4:55am 29.1 % L 36-46 Hemoglobin November 24, 2013 4:55am 9.3 GM/DL L 12-16 Icterus Index November 25, 2013 5:42am < 2 0-7 Immature Granulocyte # (Auto) November 24, 2013 4:55am 0.01 T/MM3 N 0.00-0.03 Immature Granulocyte % (Auto) November 24, 2013 4:55am 0.2 % N 0.0-0.5 Immature Reticulocyte Fraction September 28, 2009 5:45am 7.2 % N 3.3-14.5 Iron Level September 28, 2009 5:45am 89 UG/DL N 37-170 Lab Scanned Report August 10, 2013 7:24pm LAB TEST FORM REQUEST [id number] - Lactate Dehydrogenase March 20, 2009 3:15pm 535 U/L N 313-618 Lymphocytes # (Auto) November 24, 2013 4:55am 1.1 T/MM3 N 1-4.8 Lymphocytes (%) (Auto) November 24, 2013 4:55am 25.9 % N 23-45 Mean Corpuscular Hemoglobin November 24, 2013 4:55am 31.7 UUG N 26-34 Mean Corpuscular Hemoglobin Concent November 24, 2013 4:55am 32.0 GM/DL N 31-37 Mean Corpuscular Volume November 24, 2013 4:55am 99.3 UM3 N 80-100 Mean Platelet Volume November 24, 2013 4:55am 10.8 UM3 N 9.4-12.4 Monocytes # (Auto) November 24, 2013 4:55am 0.6 T/MM3 N 0-0.8 Monocytes (%) (Auto) November 24, 2013 4:55am 13.2 % H 0-9.0 GP-Eyv-U-Type Natriuretic Peptide November 23, 2013 12:44pm 585 PG/ML H 0-175 Rule in cut points: <50 years old=450; 50-75 years old=900; >75 years old=1800; When utilizing ProBNP rule-in cut points, adjustment for impaired renal function is typically not required. Neutrophils # (Auto) November 24, 2013 4:55am 2.5 T/MM3 N 1.8-7.7 Neutrophils (%) (Auto) November 24, 2013 4:55am 57.3 % N 33-66 Percent Iron Saturation September 28, 2009 5:45am 26 % N 9-55 Percent Reticulocyte Count September 28, 2009 5:45am 0.6 % N 0.6-1.7 Platelet Count November 24, 2013 4:55am 105 T/MM3 L 130-400 Potassium Level November 25, 2013 5:42am 4.6 MEQ/L DN 3.6-5 Procalcitonin November 23, 2013 12:46pm 0.75 NG/ML - PCT </=0.5 ng/ mL - sepsis not likely;PCT >0.5 and </=2 ng/mL - sepsis possible; PCT >2 ng/mL - sepsis likely; PCT >/=10 ng/mL - systemic inflammatory response - sepsis or septic shock highly indicated. Prothromb Time International Ratio November 23, 2013 12:44pm 1.12 H 0.81-1.09 THERAPUTIC RANGE=2.00-3.00 FOR ANTI-THROMBOSIS THERAPUTIC RANGE=2.50 -3.50 FOR IMPLANTED VALVE RDW Standard Deviation November 24, 2013 4:55am 55.8 FL H 36.9-50.2 Random Vancomycin Level October 14, 2011 11:28am 10.47 UG/ML N 0-40 COMMENT PER VANCOMYCIN PROTOCOL Red Blood Count November 24, 2013 4:55am 2.93 M/MM3 L 4.00-5.20 Sodium Level November 25, 2013 5:42am 141 MEQ/L DN 134-144 Stool Occult Blood April 29, 2009 11:30am Negative - Has specimen been collected/obtained? Y Tests Not Done March 20, 2009 2:45pm Not done - PLEASE PENSION ADMINISTRATOR Thyroid Stimulating Hormone (TSH) November 23, 2013 12:44pm 4.67 MIU/L N 0.47-4.68 Total Bilirubin November 23, 2013 12:44pm 0.70 MG/DL N 0.20-1.30 Total Creatine Kinase March 20, 2009 3:15pm 251 U/L H 30-135 Total Iron Binding Capacity September 28, 2009 5:45am 343 UG/DL N 261-497 Total Protein November 23, 2013 12:44pm 6.2 G/DL L 6.3-8.2 Troponin I November 23, 2013 12:44pm 0.013 ng/ml N 0-0.12 Turbidity November 25, 2013 5:42am < 20 0-20 Urine Bacteria November 23, 2013 2:15pm 3+ H - Has specimen been collected/obtained? Y Urine Bilirubin November 23, 2013 2:15pm 2+ H - Has specimen been collected/obtained? Y Urine Blood November 23, 2013 2:15pm Negative - Has specimen been collected/obtained? Y Urine Collection Type November 23, 2013 2:15pm Cleancatch-midstream - Has specimen been collected/obtained? Y Urine Color November 23, 2013 2:15pm Yellow - Has specimen been collected/obtained? Y Urine Culture Indicated November 23, 2013 2:15pm Cult not indicated - Has specimen been collected/obtained? Y Urine Glucose (UA) November 23, 2013 2:15pm Trace H - Has specimen been collected/obtained? Y Urine Hyaline Casts November 23, 2013 2:15pm 5-10 /LPF - Has specimen been collected/obtained? Y Urine Ketones November 23, 2013 2:15pm Trace H - Has specimen been collected/obtained? Y Urine Leukocyte Esterase November 23, 2013 2:15pm Negative - Has specimen been collected/obtained? Y Urine Microscopic Not Indicated October 13, 2011 5:20pm Not indicated - Has specimen been collected/obtained? Y Urine Mucus November 23, 2013 2:15pm Present - Has specimen been collected/obtained? Y Urine Nitrite November 23, 2013 2:15pm Negative - Has specimen been collected/obtained? Y Urine Protein November 23, 2013 2:15pm 1+ H - Has specimen been collected/obtained? Y Urine RBC November 23, 2013 2:15pm 0-1 /HPF - Has specimen been collected/obtained? Y Urine Random Creatinine November 23, 2013 3:47pm 282.1 MG/DL - Urine Random Sodium November 23, 2013 2:15pm 36 MEQ/L N 30-90 Has specimen been collected/obtained? Y Urine Specific [place] November 23, 2013 2:15pm >=1.030 H - Has specimen been collected/obtained? Y Urine Squamous Epithelial Cells November 23, 2013 2:15pm None seen - Has specimen been collected/obtained? Y Urine Turbidity November 23, 2013 2:15pm Clear - Has specimen been collected/obtained? Y Urine Urobilinogen November 23, 2013 2:15pm 1.0 EU/DL - Has specimen been collected/obtained? Y Urine WBC November 23, 2013 2:15pm 3-5 /HPF - Has specimen been collected/obtained? Y Urine pH November 23, 2013 2:15pm 5.5 - Has specimen been collected/ obtained? Y Valproic Acid (Depakene) Level November 23, 2013 12:43pm 42.0 UG/ML L 50-120 Venous Blood Lactate November 23, 2013 12:43pm 2.8 MMOL/L H 0.6-2.2 White Blood Count November 24, 2013 4:55am 4.3 T/MM3 L 4.5-11.0 Blood Culture Blood November 23, 2013 12:51pm NO GROWTH AFTER 48 HOURS Eye/Ear/Nose/Throat Culture Nares-Left October 13, 2011 7:20pm Staphylococcus Aureus Gram Stain Buttock-Left November 08, 2012 7:06pm Name: ANDIE LIU Unit #: [id number] : 1935 Sex: F Loc / Svc: MED DOS: 11/23/13 Signed Report #: [id number] DIAGNOSTIC IMAGING REPORT TYPE OF EXAM: CHEST, PA & LATERAL Dictated By: TERRY MALHOTRA MD INDICATION: ITS.REASON: recheck of atelectasis CHEST 2-VIEWS UPRIGHT (PA & LAT): COMPARISON: November 23, 2013 FINDINGS: There is slightly improved aeration of the right lower lobe with some patchy infiltrate remaining in both lower lobes. Cardiac pacemaker again noted. No pneumothorax. New trace effusions. Heart size and mediastinal contours are stable. Pulmonary vascularity is slightly more prominent. Impression: Improving atelectasis. New pulmonary vascular congestion with trace effusions. . Procedures No known history of procedures. Encounters Encounter Location Date/Time Discharged Inpatient [facility] 11/23/13 4:12pm Registered Clinic [facility] 10/24/13 8:06am Recent Diagnosis Acute kidney injury
--- OUTSIDE RECORDS SUMMARY | 2016-06-30 06:42 | XMS REPORT | Continuity of Care Document ---
Author Author [facility] Organization [facility] Address Unknown Phone Unavailable Support Name Relationship Address Phone JULY, IVONE Guzman DO Caregiver [address] [place] [address] Unavailable RONALD ESPINO DO Caregiver Unknown Unavailable TAMI LIU DPOA Next Of Kin [address] [place] [address] C Insurance Providers Guarantor Andie Liu Address [address] [address] Email [email or web address] Payer [facility] Policy Number [id number] Subscriber's Name Andie Liu Relationship 18 Self Group Number [id number] Payer [facility] [employer] Policy Number [id number] Subscriber's Name Andie Liu Relationship 18 Self Group Number [id number] Advance Directives Directive Response Recorded Date/Time Advanced Directives Type DNR Documentation DPOA for Healthcare 06/01/16 11:04pm Chief Complaint and Reason for Visit Chief Complaint Nosebleed Reason for Visit Posterior epistaxis Problems Active Problems Medical Problem Onset Date Status Acute encephalopathy Unknown Acute Acute kidney injury 11/25/2013 Acute Acute kidney injury Unknown Acute Anemia Unknown Acute Anemia of chronic disease Unknown Chronic Anticoagulated Unknown Chronic Ascites Unknown Acute CHF following non-cardiac surgery, postop Unknown Acute CKD (chronic kidney disease), stage III Unknown Chronic Chronic back pain Unknown Chronic Cirrhosis Unknown Chronic Constipation Unknown Acute Dehydration Unknown Acute Depression Unknown Chronic Diarrhea Unknown Acute GERD (gastroesophageal reflux disease) Unknown Chronic Gastroenteritis 02/04/2014 Acute Gastroenteritis Unknown Acute Generalized weakness Unknown Acute HTN (hypertension) Unknown Chronic History of recent hospitalization Unknown Resolved Hyperkalemia Unknown Resolved Hypokalemia Unknown Acute Hypotension Unknown Acute Hypothyroidism Unknown Chronic Invasive ductal carcinoma of breast, stage 2 ~2007 Chronic MRSA (methicillin resistant Staphylococcus aureus) Unknown Chronic Obesity (BMI 30.0-34.9) Unknown Chronic Osteoarthritis Unknown Chronic Paroxysmal atrial fibrillation Unknown Chronic Right-sided congestive heart failure Unknown Chronic Steroid long-term use Unknown Chronic UTI (lower urinary tract infection) Unknown Acute Past Problems Medical Problem Onset Date Post-op bleeding Unknown Posterior epistaxis Unknown Medications Current Home Medications Medication Dose Units Route Directions Days Qty Instructions Start Date Amiodarone Hcl 200 Mg Tablet 200 Mg Oral Daily for Atrial Fibrillation 0 Tablet 07/09/15 Apixaban (Eliquis) 5 Mg Tablet Twice A Day 180 11/23/13 Bumetanide 0.5 Mg Tablet 1 Tab Oral Twice A Day 06/01/16 Calcium Carbonate/Vitamin D3 (Calcium 600 + Vit D Caplet) 1 Each Tablet Oral Twice A Day 10/16/14 Divalproex Sodium 500 Mg Tablet.dr 500 Mg Oral Daily 90 11/23/13 Donepezil Hcl 5 Mg Tablet 1 Tab Oral Bedtime 30 Tablet 06/01/16 Hydrocodone/Acetaminophen ([place] 10-325 Tablet) 1 Each Tablet 1 Tab Oral Every 6 Hours as needed for Prn Orders 30 Tablet 07/09/15 Levothyroxine Sodium 112 Mcg Tablet 112 Mcg Oral Before Breakfast Once daily before breakfast. 07/05/15 Omeprazole (Prilosec) 20 Mg Capsule 20 Mg Oral Before Meals Twice A Day 0 Capsule 07/09/15 Ospemifene (Osphena) 60 Mg Tablet 60 Mg Oral Daily 07/05/15 Polyethylene Glycol 3350 (Miralax) 17 Gm Powd.pack 1 Packet Oral Daily as needed for Constipation 30 Packet 06/01/16 Potassium Chloride 10 Meq Capsule.er 2 Cap Oral Twice Daily With Meals Take 1 capsule, by mouth, two times a day with meals 06/01/16 Pramipexole Di-Hcl (Mirapex) 1 Mg Tablet 1 Mg Daily 04/19/14 Rifaximin (Xifaxan) 550 Mg Tablet 550 Mg Oral Twice A Day Sennosides/Docusate Sodium (Senna Plus Tablet) 1 Tab Tablet 1 Tab Oral Twice A Day 0 Tablet 07/09/15 Sertraline Hcl (Zoloft) 100 Mg Tablet 150 Mg Oral Daily 09/27/09 Past Home Medications Medication Directions Ordered Status Acetaminophen 325 Mg Tablet, 2 Tab Oral Twice A Day as needed for Pain Discontinued Amiodarone Hcl 200 Mg Tablet, 200 Mg Oral Twice A Day 07/05/15 Discontinued Amiodarone Hcl (Pacerone) 200 Mg Tablet, 200 Mg Oral Daily 10/26/14 Discontinued Amiodarone Hcl 200 Mg Tablet, 200 Mg Oral Twice A Day 10/16/14 Discontinued Amiodarone Hcl (Pacerone) 200 Mg Tablet, 200 Mg Oral Daily 11/25/13 Discontinued Amiodarone Hcl 200 Mg Tablet, Twice A Day 11/23/13 Discontinued Amlodipine Besylate 5 Mg Tablet, 11/23/13 Discontinued Amlodipine Besylate (Norvasc) 10 Mg Tablet, 10 Mg Oral Daily 09/27/09 Discontinued Anastrozole (Arimidex) 1 Mg Tablet, 1 Mg Oral Bedtime 10/13/11 Discontinued Atenolol (Tenormin) 50 Mg Tablet, 50 Mg Oral Twice A Day 11/25/13 Discontinued Atenolol 50 Mg Tablet, 50 Mg Oral Daily 09/27/09 Discontinued Atorvastatin Calcium (Lipitor) 20 Mg Tablet, 20 Mg Oral Daily 09/27/09 Discontinued Atorvastatin Calcium 20 Mg Tablet, 11/23/13 Discontinued Benazepril Hcl 40 Mg Tablet, 40 Mg Oral Daily 09/27/09 Discontinued Cholecalciferol (Vitamin D3) (Vitamin D) 400 Unit Tablet, Unknown Dose Oral Twice A Day 02/02/14 Discontinued Clotrimazole 10 Mg Jac, 10 Mg Oral 5 Times Daily 07/09/15 Discontinued Ferrous Sulfate (Iron) 325 ( Tablet, 325 ( Oral Twice A Day 04/20/09 Discontinued Fexofenadine Hcl 180 Mg Tablet, 180 Mg Oral As Needed 09/27/09 Discontinued Hydrocodone/Acetaminophen ([place] 10-325 Tablet) 1 Each Tablet, 1 Tab Oral Every 6 Hours as needed for Prn Orders 10/16/14 Discontinued Letrozole (Femara) 2.5 Mg Tablet, 1 Tab Oral Daily 09/27/09 Discontinued Levothyroxine Sodium (Levothroid) 100 Mcg Tablet, 100 Mcg Oral Daily Discontinued Multivitamins (Multivitamin) 1 Tab Tablet, 1 Tab Oral Daily 04/20/09 Discontinued Nitroglycerin 0.4 Mg Tab.subl, 0.4 Mg Sublingual As Needed as needed for Chest Tightness 02/02/14 Discontinued Pantoprazole Sodium 40 Mg Tablet., 11/23/13 Discontinued Potassium Chloride 20 Meq Tablet.er, 20 Meq Oral Twice Daily With Meals 07/04 Discontinued Potassium Chloride 20 Meq Tablet.er, 20 Meq Oral Give With Breakfast Discontinued Potassium Chloride 10 Meq Capsule.sa, 2 Tab Oral Daily 09/27/09 Discontinued Pramipexole Di-Hcl (Mirapex) 1 Mg Tablet, 1 Mg Oral Daily 09/27/09 Discontinued Prednisone 10 Mg Tablet, 10 Mg Oral Daily 10/16/14 Discontinued Prednisone 1 Mg Tablet, 1 04/19/14 Discontinued Rizatriptan Benzoate (Maxalt) 10 Mg Tablet, 10 Mg Oral As Needed 08/31/08 Discontinued Tizanidine Hcl 4 Mg Tablet, 8 Mg Oral Bedtime 07/05/15 Discontinued Tizanidine Hcl (Zanaflex) 4 Mg Tablet, 4 Mg Oral Bedtime 11/25/13 Discontinued Tizanidine Hcl 4 Mg Tablet, 8 Mg Oral Bedtime 09/27/09 Discontinued Triamcinolone Acetonide (Nasacort Aq) 16.5 Gm [place], 2 Sprays Nasal Daily 18/01 Discontinued Social History Social History Problem Response Recorded Date/Time Onset Date Status Chewing Tobacco Status No 11/11/2012 5:10pm Not Applicable Not Applicable Hx Substance Use No 06/01/2016 11:32pm Not Applicable Not Applicable Hx Alcohol Use No 06/01/2016 11:32pm Not Applicable Not Applicable Has the pt used tobacco in the last 12 months No 07/06/2015 1:28am Not Applicable Not Applicable Tobacco Usage none 07/06/2015 1:05pm Not Applicable Not Applicable Query Response Start Date Stop Date Smoking Status Unknown if ever smoked Hospital Discharge Instructions No hospital discharge instructions. Plan of Care Discharge Date 06/02/16 12:43am Disposition 01 DISCHARGED HOME, SELF-CARE Condition at Discharge Improved Instructions/Education Provided Nosebleed (ED) Prescriptions See Medication Section Referrals RONALD ESPINO DO Order Date: 1 Day Note: Additional Instructions/Education Keep the nasal tampon (rhino rocket) in place until seen by ENT. Contact your doctor tomorrow to be seen and to refer you to an ENT doctor. Care Plan and Goals Physician Care Plan Problem: Posterior epistaxis Goal: Follow up with primary care provider Instructions: Take medications and follow care plan as discussed/written Functional Status No functional status results. Allergies, Adverse Reactions, Alerts Allergen Type Severity Reaction Status Last Updated Phenylbutazone Allergy Mild HIVES (BUTAZOLIDIN - MANU DISC) Active Lansoprazole Adverse Reaction Mild DIARRHEA Active 02/14/16 Immunizations Query Response on File Recorded Date/Time Hx Influenza Vaccination Y jan 2015 07/06/15 1:28am Hx Pneumococcal Vaccination Y 02/201507/06/15 1:28am Hx Influenza Vaccination Y jan 2015 07/06/15 1:28am Influenza Vaccine Hx 12/201506/01/16 11:32pm Tdap Vaccine Hx UNKNOWN 02/14/16 9:26am Vital Signs Acute Vital Signs Vital Response Date/Time Temperature (Fahrenheit) 98.3 deg F (96.8 - 99.1) 06/01/2016 11:04pm Temperature (Calculated Celsius) 36.94504 degrees C (36.0 - 37.3) 06/01/2016 11:04pm Pulse Rate (adult) 80 bpm (60 - 100) 06/02/2016 12:43am Respiratory Rate 16 breaths/min (10 - 20) 06/02/2016 12:43am O2 Sat by Pulse Oximetry 99 % (90 - 100) 06/02/2016 12:43am Blood Pressure 138/60 mm Hg 06/02/2016 12:43am Height (Feet) 5 feet 06/01/2016 11:04pm Height (Inches) 4.00 inches 06/01/2016 11:04pm Weight (Kilograms) 86.400 kg 06/01/2016 11:04pm Body Mass Index (BMI) 32.0 06/01/2016 11:04pm Results Laboratory Results Test Name Result Units Flags Reference Collection Date/Time Result Date/ Time Comments Unconjugated Bilirubin 0.00 MG/DL 0.00-1.10 05/08/2016 5:57am 2016 6:21am Conjugated Bilirubin 0.00 MG/DL 0.00-0.30 05/08/2016 5:57am 05/08/2016 6:21am White Blood Count 5.3 T/MM3 4.5-11.0 05/14/2016 6:39am 05/14/2016 7: 43am Red Blood Count 3.24 M/MM3 L 4.00-5.20 05/14/2016 6:39am 05/14/2016 7: 43am Mean Corpuscular Volume 104.0 UM3 H 80-100 05/14/2016 6:39am 05/14/2016 7:43am Mean Corpuscular Hemoglobin 32.4 UUG 26-34 05/14/2016 6:39am 2016 7:43am Mean Corpuscular Hemoglobin Concent 31.2 GM/DL 31-37 05/14/2016 6:39am 05/14/2016 7:43am RDW Standard Deviation 50.1 FL 36.9-50.2 05/14/2016 6:39am 05/14/2016 7 :43am Platelet Count 91 T/MM3 L 130-400 05/14/2016 6:39am 05/14/2016 7:43am Mean Platelet Volume 11.9 UM3 9.4-12.4 05/14/2016 6:39am 05/14/2016 7: 43am Neutrophils (%) (Auto) 48.9 % 33-66 05/14/2016 6:39am 05/14/2016 7: 43am Lymphocytes (%) (Auto) 40.3 % 23-45 05/14/2016 6:39am 05/14/2016 7: 43am Monocytes (%) (Auto) 8.9 % 0-9.0 05/14/2016 6:39am 05/14/2016 7:43am Eosinophils (%) (Auto) 1.5 % 0-4 05/14/2016 6:39am 05/14/2016 7:43am Basophils (%) (Auto) 0.2 % 0-2 05/14/2016 6:39am 05/14/2016 7:43am Immature Granulocyte % (Auto) 0.2 % 0.0-0.5 05/14/2016 6:39am 2016 7:43am Absolute Neutrophils (auto) 2.6 T/MM3 1.8-7.7 05/14/2016 6:39am 2016 7:43am Absolute Lymphocytes (auto) 2.1 T/MM3 1-4.8 05/14/2016 6:39am 2016 7:43am Absolute Monocytes (auto) 0.5 T/MM3 0-0.8 05/14/2016 6:39am 05/14/2016 7:43am Absolute Eosinophils (auto) 0.1 T/MM3 0-0.5 05/14/2016 6:39am 2016 7:43am Absolute Basophils (auto) 0.0 T/MM3 0-0.2 05/14/2016 6:39am 05/14/2016 7:43am Absolute Immature Granulocyte (auto 0.01 T/MM3 0.00-0.03 05/14/2016 6: 39am 05/14/2016 7:43am Prothromb Time International Ratio 1.09 H 0.76-1.04 05/14/2016 6:39am 05/14/2016 7:53am THERAPUTIC RANGE=2.00-3.00 FOR ANTI-THROMBOSIS THERAPUTIC RANGE=2.50-3.50 FOR IMPLANTED VALVE Icterus Index < 2 0-7 05/14/2016 6:39am 05/14/2016 7:59am Chemistry Specimen Hemolysis < 15 0-25 05/14/2016 6:39am 05/14/2016 7 :59am 0-25: Specimen Exhibited No Hemolysis. Turbidity < 20 0-20 05/14/2016 6:39am 05/14/2016 7:59am Sodium Level 143 MEQ/L 134-144 05/14/2016 6:39am 05/14/2016 7:59am Potassium Level 4.2 MEQ/L 3.6-5 05/14/2016 6:39am 05/14/2016 7:59am Chloride Level 104 MEQ/L 98-107 05/14/2016 6:39am 05/14/2016 7:59am Carbon Dioxide Level 32 MEQ/L H 22-30 05/14/2016 6:39am 05/14/2016 7: 59am Anion Gap 7 MEQ/L 5-15 05/14/2016 6:39am 05/14/2016 7:59am Blood Urea Nitrogen 18.0 MG/DL H 7-17 05/14/2016 6:39am 05/14/2016 7: 59am Creatinine 1.0 MG/DL 0.7-1.2 05/14/2016 6:39am 05/14/2016 7:59am BUN/Creatinine Ratio 18 RATIO 6-05/14/2016 6:39am 05/14/2016 7:59am Glomerular Filtration Rate Calc 53 05/14/2016 6:39am 05/14/2016 7: 59am Glucose Level 107 MG/DL 65-110 05/14/2016 6:39am 05/14/2016 7:59am Calculated Osmolality 277 MOSM/KG 261-280 05/14/2016 6:39am 05/14/2016 7:59am Calcium Level 9.6 MG/DL 8.4-10.2 05/14/2016 6:39am 05/14/2016 7:59am Total Bilirubin 0.50 MG/DL 0.20-1.30 05/14/2016 6:39am 05/14/2016 7: 59am Alkaline Phosphatase 57 U/L 38-126 05/14/2016 6:39am 05/14/2016 7:59am Total Protein 6.3 G/DL 6.3-8.2 05/14/2016 6:39am 05/14/2016 7:59am Albumin 3.5 G/DL 3.5-5.0 05/14/2016 6:39am 05/14/2016 7:59am Globulin 2.8 G/DL 2.4-3.6 05/14/2016 6:39am 05/14/2016 7:59am Albumin/Globulin Ratio 1.3 RATIO 1.1-2.2 05/14/2016 6:39am 05/14/2016 7 :59am Aspartate Amino Transf (AST/SGOT) 38 U/L H 14-36 05/14/2016 6:39am 05/14 7:59am Alanine Aminotransferase (ALT/SGPT) 35 U/L 9-52 05/14/2016 6:39am 05/14 7:59am Hemoglobin 9.3 GM/DL L 12-16 05/28/2016 6:00am 05/28/2016 7:36am Hematocrit 31.0 % L 36-46 05/28/2016 6:00am 05/28/2016 7:36am Vitamin B12 Level 798 PG/ML 239-931 05/28/2016 6:00am 05/30/2016 3: 21am Folate 5.6 NG/ML 2.76-20 05/28/2016 6:00am 05/30/2016 3:21am NORMAL ADULT RANGE: 2.76->20 ng/mL Microbiology Results Procedure Source Organism/Result Collection Date/Time Result Date/Time Result Status WOUND CULTURE DEEP TISS-AER/AN Toe, Right First DIPHTHEROID BACILLUS 2016 9:11am 05/04/2016 11:29am Final COAG NEGATIVE STAPHYLOCOCCUS 04/30/2016 9:11am 05/04/2016 11:29am Final Procedures Procedure Status Date Provider(s) Routine venipuncture Completed 03/12/16 Comprehen metabolic panel Completed 03/12/16 [id number] TRIP CHARGE. Completed 03/12/16 Routine venipuncture Completed 04/16/16 Complete cbc w/auto diff wbc Completed 04/16/16 [id number] TRIP CHARGE. Completed 04/16/16 Coni subq tissue 20 sq cm/< Completed 04/30/16 Culture othr specimn aerobic Completed 04/30/16 Cultr bacteria except blood Completed 04/30/16 Culture type immunologic Completed 04/30/16 Smear gram stain Completed 04/30/16 [id number]"BORDER, EACH DRESSING" Completed 04/30/16 E&M LEVEL - FACILITY Completed 04/30/16 Routine venipuncture Completed 05/08/16 Hepatic function panel Completed 05/08/16 Complete cbc w/auto diff wbc Completed 05/08/16 Prothrombin time Completed 05/08/16 [id number] TRIP CHARGE. Completed 05/08/16 Routine venipuncture Completed 05/14/16 Comprehen metabolic panel Completed 05/14/16 Complete cbc w/auto diff wbc Completed 05/14/16 Prothrombin time Completed 05/14/16 [id number] TRIP CHARGE. Completed 05/14/16 Encounters Encounter Location Arrival/Admit Date Discharge/Depart Date Attending Provider Departed Emergency Room [facility] 06/01/16 10:58pm 06/02/16 12: 43am IVONE MILLS DO [facility] 05/28/16 8:37am SHAMA SULLIVAN MD [facility] 05/28/16 12:25am PAOLA HORVATH [facility] 05/14/16 8:27am SHAMA SULLIVAN MD [facility] 05/14/16 12:58am PAOLA HORVATH [facility] 05/08/16 12:37am RONALD ESPINO DO [facility] 04/30/16 8:27am SHAMA SULLIVAN MD [facility] 04/16/16 2:38am WILLIE MARTÍNEZ MD [facility] 03/12/16 1:29am RONALD ESPINO DO Recent Diagnosis
--- OUTSIDE RECORDS SUMMARY | 2016-06-30 06:43 | XMS REPORT | Continuity of Care Document ---
Author Author [facility] Organization [facility] Address Unknown Phone Unavailable Support Name Relationship Address Phone TAMI LIU Next Of Kin [address] [place] [address] Unavailable Insurance Providers Payer Name Policy Number Subscriber Name Relationship [facility] [id number] Andie Liu Self Medicare [id number] Andie Liu Self [facility] Other [id number] Andie Liu Self Problems No Known Problems or Medical conditions. Family History History Response Recorded Date/Time HX of Orthopedic Surgeries Y L4&L5 lumbar surgery; LT TKR; IT BAND RELEASE; [facility] 09/29/12 4:13pm Hx Abdominal Surgery Y OPEN CHOLECYSTECTOMY 09/29/12 4:13pm HX Cerebrovascular Accident N 09/29/12 4:13pm Hx Seizures N 09/29/12 4:13pm Hx Angina N 09/29/12 4:13pm Hx Congestive Heart Failure N HAS BEEN DEBATED, "CONTRACT CLERK SAYS NO" 4:13pm Hx Heart Attack N 09/29/12 4:13pm Hx Hypertension Y 09/29/12 4:13pm Hx Rheumatic Fever N 09/27/09 2:29pm Hx Chronic Obstructive Pulmonary Disease (COPD) N 09/29/12 4:13pm Hx Diabetes N 09/29/12 4:13pm Hx Clotting Problems N 09/29/12 4:13pm Hx Cancer Y Breast CA Left breast Lumpectomy in august 29 09/29/12 4:13pm Hx MRSA N 09/29/12 4:13pm HX of Cardiac Surgeries N 09/29/12 4:13pm HX of Reproductive Surgeries Y hysterectomy total/APPY 09/29/12 4:13pm HX of Endocrine Surgeries N 09/29/12 4:13pm HX of Throat Surgery Y tonsillectomy 09/29/12 4:13pm HX of Neurological Surgeries N 09/29/12 4:13pm HX of Genitourinary Surgeries N 09/29/12 4:13pm Social History History Response Recorded Date/Time Smoking Status Never smoker 09/29/12 4:13pm Chewing Tobacco Status N 09/29/12 4:13pm Hx Substance Use N 09/29/12 4:13pm Hx Alcohol Use N 09/29/12 4:13pm Has the pt used tobacco in the last 12 months N 09/29/12 4:13pm Allergies, Adverse Reactions, Alerts Allergen Type Severity Reaction Last Updated phenylbutazone Allergy Mild HIVES (BUTAZOLIDIN - MANU DISC) 04/23/09 lansoprazole Adverse Reaction Mild DIARRHEA 04/20/09 Medications Medication Dose Units Route Sig Qty [...] Recorded Date/Time Status not known Unknown Results Test Date Result Interp. Ref. Range Absolute Reticulocyte Count September 28, 2009 5:45am 0.0196 T/MM3 L 0.0300- 0.0900 Activated Partial Thromboplast Time March 20, 2009 3:15pm 33.0 SEC N 25 -36 Adrenocorticotropic Hormone October 09, 2009 9:30am Sent out - Alanine Aminotransferase (ALT/SGPT) October 13, 2011 5:25pm 18 U/L N 9-52 Albumin October 13, 2011 5:25pm 4.0 G/DL N 3.5-5.0 Albumin/Globulin Ratio October 13, 2011 5:25pm 1.2 RATIO N 1.1-2.2 Alkaline Phosphatase October 13, 2011 5:25pm 93 U/L N 38-126 Anion Gap September 30, 2012 8:15am 14 MEQ/L N 5-15 Aspartate Amino Transf (AST/SGOT) October 13, 2011 5:25pm 29 U/L N 14-36 B-Type Natriuretic Peptide September 27, 2009 11:10am 100 PG/ML N 15-100 BUN/Creatinine Ratio September 30, 2012 8:15am 14 RATIO N 6-26 Basophils # (Auto) September 30, 2012 8:15am 0.0 T/MM3 N 0-0.2 Basophils (%) (Auto) September 30, 2012 8:15am 0.4 % N 0-2 Blood Urea Nitrogen September 30, 2012 8:15am 14.0 MG/DL N 7-17 C-Reactive Protein October 13, 2011 5:25pm 29.2 MG/L H 0-9 Calcium Level September 30, 2012 8:15am 10.0 MG/DL N 8.4-10.2 Calculated Osmolality September 30, 2012 8:15am 284 MOSM/KG H 261-280 Carbon Dioxide Level September 30, 2012 8:15am 31 MEQ/L H 22-30 Chloride Level September 30, 2012 8:15am 102 MEQ/L N 98-107 Cortisol AM Sample October 09, 2009 8:00am 18.8 UG/DL N 10.4-26.4 Cortisol PM Sample September 27, 2009 4:00pm 11.6 UG/DL - Cortisol Response to Stim 1 Hour October 09, 2009 9:30am 27.8 UG/DL - Creatinine September 30, 2012 8:15am 1.0 MG/DL N 0.7-1.2 Eosinophils # (Auto) September 30, 2012 8:15am 0.1 T/MM3 N 0-0.5 Eosinophils (%) (Auto) September 30, 2012 8:15am 1.7 % N 0-4 Erythrocyte Sedimentation Rate October 13, 2011 5:25pm 70 MM/HR H 0-20 Ferritin September 28, 2009 5:45am 34.7 NG/ML N 11-264 Free Thyroxine September 27, 2009 11:10am 0.83 NG/DL N 0.78-2.19 Globulin October 13, 2011 5:25pm 3.4 G/DL N 2.4-3.6 Glucose Level September 30, 2012 8:15am 110 MG/DL N 65-110 Hematocrit September 30, 2012 8:15am 38.4 % N 36-46 Hemoglobin September 30, 2012 8:15am 12.2 GM/DL N 12-16 Immature Reticulocyte Fraction September 28, 2009 5:45am 7.2 % N 3.3-14.5 Iron Level September 28, 2009 5:45am 89 UG/DL N 37-170 Lactate Dehydrogenase March 20, 2009 3:15pm 535 U/L N 313-618 Lymphocytes # (Auto) September 30, 2012 8:15am 1.6 T/MM3 N 1-4.8 Lymphocytes (%) (Auto) September 30, 2012 8:15am 30.5 % N 23-45 Mean Corpuscular Hemoglobin September 30, 2012 8:15am 30.0 UUG N 26-34 Mean Corpuscular Hemoglobin Concent September 30, 2012 8:15am 31.8 GM/DL N 31- 37 Mean Corpuscular Volume September 30, 2012 8:15am 94.3 UM3 N 80-100 Mean Platelet Volume September 30, 2012 8:15am 10.3 UM3 N 9.4-12.4 Monocytes # (Auto) September 30, 2012 8:15am 0.6 T/MM3 N 0-0.8 Monocytes (%) (Auto) September 30, 2012 8:15am 10.6 % H 0-9.0 Neutrophils # (Auto) September 30, 2012 8:15am 3.0 T/MM3 N 1.8-7.7 Neutrophils (%) (Auto) September 30, 2012 8:15am 56.6 % N 33-66 Percent Iron Saturation September 28, 2009 5:45am 26 % N 9-55 Percent Reticulocyte Count September 28, 2009 5:45am 0.6 % N 0.6-1.7 Platelet Count September 30, 2012 8:15am 138 T/MM3 N 130-400 Potassium Level September 30, 2012 8:15am 4.1 MEQ/L N 3.6-5 Prothromb Time International Ratio March 20, 2009 3:15pm 1.02 N 0.79- 1.23 RDW Standard Deviation September 30, 2012 8:15am 50.4 FL H 36.9-50.2 Random Vancomycin Level October 14, 2011 11:28am 10.47 UG/ML N 0-40 Red Blood Count September 30, 2012 8:15am 4.07 M/MM3 N 4.00-5.20 Sodium Level September 30, 2012 8:15am 147 MEQ/L H 134-144 Stool Occult Blood April 29, 2009 11:30am Negative - Tests Not Done March 20, 2009 2:45pm Not done - Thyroid Stimulating Hormone (TSH) September 27, 2009 11:10am 3.14 MIU/ML N 0.47 -4.68 Total Bilirubin October 13, 2011 5:25pm 0.60 MG/DL N 0.20-1.30 Total Creatine Kinase March 20, 2009 3:15pm 251 U/L H 30-135 Total Iron Binding Capacity September 28, 2009 5:45am 343 UG/DL N 261-497 Total Protein October 13, 2011 5:25pm 7.4 G/DL N 6.3-8.2 Troponin I October 13, 2011 5:25pm < 0.012 ng/ml 0-0.12 Urine Bilirubin October 13, 2011 5:20pm Negative - Urine Blood October 13, 2011 5:20pm Negative - Urine Collection Type October 13, 2011 5:20pm Voided - Urine Color October 13, 2011 5:20pm Yellow - Urine Glucose (UA) October 13, 2011 5:20pm Negative - Urine Hyaline Casts April 22, 2009 2:20pm 1-3 /LPF - Urine Ketones October 13, 2011 5:20pm Negative - Urine Leukocyte Esterase October 13, 2011 5:20pm Negative - Urine Nitrite October 13, 2011 5:20pm Negative - Urine Protein October 13, 2011 5:20pm Negative - Urine RBC April 22, 2009 2:20pm 5-10 /HPF - Urine Random Creatinine April 22, 2009 2:20pm 59.0 MG/DL - Urine Random Sodium April 22, 2009 2:20pm 45 MEQ/L N 30-90 Urine Specific Branscomb October 13, 2011 5:20pm 1.010 L - Urine Squamous Epithelial Cells April 22, 2009 2:20pm Few - Urine Turbidity October 13, 2011 5:20pm Clear - Urine Urobilinogen October 13, 2011 5:20pm Normal EU/DL - Urine WBC April 22, 2009 2:20pm 0-1 /HPF - Urine pH October 13, 2011 5:20pm 6.0 - White Blood Count September 30, 2012 8:15am 5.4 T/MM3 N 4.5-11.0 Glucometer September 27, 2009 11:06am 116 mg/dL H 65-110 EKG March 20, 2009 3:14pm Complete - Glomerular Filtration Rate Calc September 30, 2012 8:15am 54 - Immature Granulocyte # (Auto) September 30, 2012 8:15am 0.01 T/MM3 N 0.00-0.03 Immature Granulocyte % (Auto) September 30, 2012 8:15am 0.2 % N 0.0-0.5 AL-Qau-N-Type Natriuretic Peptide October 13, 2011 5:25pm 1240 PG/ML H 0-175 Urine Microscopic Not Indicated October 13, 2011 5:20pm Not indicated - Procedures Procedure Code Date PARTICAL MASTECTOMY 76747 08/31/08 BIOPSY/REMOVAL LYMPH NODES 81528 08/31/08 RA TRACER ID OF SENTINL NODE 05275 08/31/08 PACKED CELL TRANSFUSION 99.04 04/24/09 INCISION OF NOSE 21.1 10/14/11 REPAIR OF NASAL SEPTUM 34658 02/06/12 THER FX NASAL INF TURBINATE 38000 02/06/12 [id number] CANCER SCREENING; COLONOSCOPY ON INDIVIDUAL G0121 06/04/12 MUSCULOSKELETAL SURGERY 88929 09/30/12 Blood Culture 10/13/11 Eye/Ear/Nose/Throat Culture 10/13/11 Encounters Encounter Location Date/Time Discharged Inpatient [facility] 10/13/11 4:58pm
--- OUTSIDE RECORDS SUMMARY | 2016-06-30 06:43 | XMS REPORT | Continuity of Care Document ---
Author Author Harman [facility] LIVE Organization [facility] LIVE Address Unknown Phone Unavailable Support Name Relationship Address Phone MYLENE GARCIA MD Caregiver [address] [place] [phone] LAWRENCE ALMONTE MD Caregiver [address] [place] [address] TAMI LIU DPOA Next Of Kin [address] [place] [address] Insurance Providers Payer Name Policy Number Subscriber Name Relationship Medicare [id number] Andie Liu 19 Self [facility] Other [id number] Andie Liu Self [facility] [id number] Andie Liu Self Advance Directives Directive Response Recorded Date/Time Advanced Directives Type None 02/02/14 6:25pm Ordered Resuscitation Status Full Code, unverified 02/02/14 6:42pm Resuscitation Documents on File No 02/02/14 8:00pm Chief Complaint and Reason for Visit Chief Complaint GASTROENTERITIS AND HYPOKALEMIA Reason for Visit Gastroenteritis Problems Medical Problems Problem Onset Date Status Acute kidney injury 11/25/2013 Active Acute kidney injury Unknown Active Hypotension Unknown Active Gastroenteritis 02/04/2014 Active Medications Medication Dose Route Sig Days/Qty [...] Mg PO BEDTIME 30 Qty 11/25/13 Active Pramipexole Di-HCl 1.5 Mg PO BEDTIME 02/02/14 Active Acetaminophen 2 Tab PO TWICE A DAY PRN PAIN Do not exceed 3,200 mg of acetaminophen in a 24 hours 02/02/14 Active Cholecalciferol (Vitamin D3) Unknown Dose PO TWICE A DAY 02/02/14 Active Prednisone 1 Tab PO DAILY 02/02/14 Active Nitroglycerin 0.4 Mg SL NEEDED PRN CHEST TIGHTNESS 02/02/14 Active Cefuroxime Axetil 500 Mg PO EVERY 12 HOURS 14 Qty 02/04/14 Active Social History Social History Problem Response Recorded Date/Time Smoking Status Never smoker 02/02/2014 8:00pm Chewing Tobacco Status No 11/11/2012 5:10pm Hx [...] 02/10/14. Condition at time of discharge: Good Condition at time of discharge: Good Patient Instructions: OVER THE COUNTER TRIPLE ANTIBIOTIC OINTMENT TO RIGHT GROIN 2 TIMES A DAY FOR 5 DAYS NO TUB BATH FOR 5 DAYS Condition at time of discharge: Good Condition at time of discharge: Good incision is completely healed. Mepilex 1.Dressing to [...] of your legs. 3.During office hours, call [phone] 4. After hours, please call [facility] at [phone], and have the planograph operator page your Surgeon IN THE EVENT OF AN EMERGENCY, seek medical care at the nearest Emergency Room Condition at time of discharge: Good Plan of Care Discharge Date 02/04/14 1:09pm Disposition 01 DISCHARGED HOME, SELF-CARE Instructions/Education Provided DI for Hypokalemia DI for Bacterial Gastroenteritis -- Adult Prescriptions See Medications Section Functional Status Query Response Date Recorded Physical Hygiene Self February 04, 2014 12:03pm Disabilities None February 04, 2014 12:03pm Devices Used Glasses Cane February 04, 2014 12:03pm Dressing Self February 04, 2014 12:03pm Ambulation Self February 04, 2014 12:03pm Diet Self February 04, 2014 12:03pm Mental Status Alert Oriented February 04, 2014 12:03pm Disabilities None February 04, 2014 12:03pm Devices Used Glasses Cane February 04, 2014 12:03pm Physical Hygiene Self February 04, 2014 12:03pm Dressing Self February 04, 2014 12:03pm Ambulation Self February 04, 2014 12:03pm Diet Self February 04, 2014 12:03pm Allergies, Adverse Reactions, Alerts Allergen Type Severity Reaction Status Last Updated Phenylbutazone Allergy Mild HIVES (BUTAZOLIDIN - MANU DISC) Active Lansoprazole Adverse Reaction Mild DIARRHEA Active 02/02/14 Immunizations Name Given Type Hx Influenza Vaccination Yes Historical Hx Pneumococcal Vaccination Y 2011 Historical Hx Influenza Vaccination Yes Historical Vital Signs Acute Vital Signs Vital Response Date/Time Temperature (Fahrenheit) 97.7 deg F (96.8 - 99.1) Temperature (Calculated Celsius) 36.60886 degrees C (36.0 - 37.3) Temperature Source Temporal Pulse Rate (adult) 66 bpm (60 - 100) Respiratory Rate 16 breaths/min (10 - 20) O2 Sat by Pulse Oximetry 98 % (90 - 100) Oxygen Delivery Method Room Air Blood Pressure 141/68 mm Hg Blood Pressure Source Automatic Cuff [...] March 20, 2009 3:14pm Complete - FAX [phone] Eosinophils # (Auto) February 04, 2014 6:18am [...] 08, 2013 7:36pm LAB TEST FORM REQUEST [id number] - Lactate Dehydrogenase March 20, 2009 3:15pm [...] 04, 2014 6:18am 10.2 % H 0-9.0 GS-Bff-W-Type Natriuretic Peptide December 02, 2013 3:55pm 1720 [...] 5:45am 0.6 % N 0.6-1.7 Platelet Count February 04, 2014 6:18am 115 T/MM3 L 130-400 Potassium Level February 04, 2014 6:18am 4.3 [...] -3.50 FOR IMPLANTED VALVE RDW Standard Deviation February [...] 20, 2009 2:45pm Not done - PLEASE EAR NOSE THROAT PHYSICIAN Thyroid Stimulating Hormone (TSH) November 23, 2013 [...] Has specimen been collected/obtained? Y Urine Specific [place] February 02, 2014 4:11pm 1.020 - Has [...] 2012 7:06pm Name: ANDIE LIU Unit #: [id number] : 1935 Sex: F Loc / Svc: ED DOS: 02/02/14 Signed Report #: [id number] DIAGNOSTIC IMAGING REPORT TYPE OF EXAM: CT ABD/PELVIS W/CONTRAST ONLY Dictated By: TERRY MALHOTRA MD INDICATION: ITS.REASON: left-sided abdominal pain, weakness, diarrhea CT ABD/PELVIS W/CONTRAST ONLY: Comparison: None Technique: Axial CT images were performed through the abdomen and pelvis after the administration of intravenous contrast. 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 This is probably chronic. Low-attenuation lesion in the left lobe of the liver near the diaphragm measuring 2.9 cm in size. This does not have any significant internal enhancement. Additional tiny low-attenuation lesion in the right lobe on image #3, too small to definitively characterize. The gallbladder is surgically absent. The spleen is borderline enlarged at 14.5 cm anteroposterior dimension. The pancreas and adrenal glands are normal. Kidneys are normal. No abdominal or pelvic lymphadenopathy. Postsurgical changes in the rectum with a surgical anastomosis. Uterus is surgically absent. The colon is mostly decompressed distally. Fluid-filled cecum, ascending and proximal transverse colon. Multiple calcific densities likely related to ingested pill fragments in the cecum and distal ileum. No evidence of abnormal small bowel wall thickening or dilatation. No free air or inflammatory changes in the mesentery. Impression: 1. No evidence of acute small bowel obstruction. Evidence of a gastroenteritis. 2. Indeterminate left hepatic lesion probably representing a cyst or hemangioma. Further evaluation with liver ultrasound is recommended on a nonemergent basis. . Procedures No known history of procedures. Encounters Encounter Location Date/Time Discharged Inpatient [facility] 02/03/14 6:28pm Registered Clinic [facility] 12/08/13 12:17pm Registered [facility] 12/02/13 4:56pm Discharged Inpatient [facility] 11/23/13 4:12pm Recent Diagnosis Gastroenteritis
--- NOTE | 2016-06-30 07:20 | ERPDOC ---
Departure Impression Impression Referrals: RONALD ESPINO DO (Family) Mental Status: Alert, Oriented HPI - General Medical General Chief Complaint: Dyspnea/Respdistress Stated Complaint: WEAKNESS,NAUSEA,FLU SYMPTONS 3 DAYS Time Seen by Provider: 07:17 HPI - General Medical Allergies: Coded Allergies: phenylbutazone (Verified Allergy, Mild, HIVES (BUTAZOLIDIN - MANU DISC), ) lansoprazole (Verified Adverse Reaction, Mild, DIARRHEA, 06/02/16) Past History Patient Surgical History Tonsillectomy, age 6. Colonoscopy, 1997, 2002, 2012. EGD and colonoscopy, 2001. Open cholecystectomy, 2001 Bilateral cataract extraction and lens implantation, 2000. Surgery for ankle spurs twice TAHBSO with incidental appendectomy, 1983 Right Achilles tendon repair. Carpal tunnel release. Left knee replacement, 2004. Hemorrhoidectomy, 2005. Right corneal surgery. Posterior decompression and fusion at L4-L5, 2006. 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 L3-L4 decompression and extension of fusion to L2-L3, 2009 Septoplasty, 2011. Ileal band release of left hip, 2012. Permanent pacemaker placement, 2013. Bone marrow biopsy, 2013 L1-L2 Radical discectomy, L1-L2. Anterior lumbar interbody fusion, 2014 Back surgery, summer 2014 Past Medical History Metabolic: hypercholesterolemia, hypertension, hypothyroidism Surgical History General: back, other Joint: knee Vaccines Hx Influenza Vaccination: Yes (jan 2015) Hx Pneumococcal Vaccination: Yes (02/2015) Physical Exam General Vitals and Pain Weight: Kilograms: Height (feet): 5 Height (inches): 4.00 Triage Pain Scale: Progress Results/Orders Orders Procedure Category Date Status Time Cbc W/Auto LAB 06/30/16 Transmitted Diff-Reflex Manual 07:17 Cmp - Comprehensive LAB 06/30/16 Transmitted Metabolic 07:17 Probnp LAB 06/30/16 Transmitted 07:17 Troponin I W LAB 06/30/16 Transmitted Hemolysis Index 07:17 Ua, Dip Wreflex LAB 06/30/16 Transmitted Microsc & Vitamin Manager 07:17 D-Dimer LAB 06/30/16 Transmitted 07:17 Tsh - Thyroid Stim LAB 06/30/16 Transmitted Hormone 07:17 Magnesium LAB 06/30/16 Transmitted 07:17 EKG EKG 06/30/16 Transmitted 07:17 Chest, Pa & Lateral RAD 06/30/16 Transmitted 07:17 Iv Lock (Ed Only) EDM 06/30/16 Transmitted 07:17 Procalcitonin LAB 06/30/16 Transmitted 07:17 Lactate - Lactic Acid LAB 06/30/16 Transmitted 07:17 Blood Culture ROSHAN 06/30/16 Transmitted 07:17 Lipase LAB 06/30/16 Transmitted 07:17 Ns 1000 Ml (Er Use PHA 06/30/16 Transmitted Only) 07:30 LAWRENCE ALMONTE MD Jun 30, 2016 07:20
--- NOTE | 2016-06-30 07:21 | NUR ---
EKG OBTAINED AND RESULTS GIVEN TO
[2016-06-30] MEDS ORDERED: NORMAL SALINE 1,000 ML IV ONE (07:30)
--- NOTE | 2016-06-30 07:30 | NUR ---
IV/LAB 20 GAUGE IV TO RIGHT AC ABLE TO ASPIRATE BLOOD. SPECIMEN OBTAINED AND GIVEN TO CAR PRE COOLER IN ROOM.
--- OUTSIDE RECORDS SUMMARY | 2016-06-30 07:35 | XMS REPORT | Continuity of Care Document ---
Author Author [facility] LIVE Organization [facility] LIVE Address Unknown Phone Unavailable Support Name Relationship Address Phone TERRY MALHOTRA MD Caregiver [address] [place] [address] Ext [phone] MYLENE GARCIA MD Caregiver [address] [place] [address] [place], [place] [phone] TAMI LIU DPOA Next Of Kin [address] [place], [place] [id number] Insurance Providers Payer Name Policy Number Subscriber Name Relationship Medicare [id number] Andie Liu 19 Self [facility] Other [id number] Andie Liu [address] [facility] [id number] Andie Liu 19 Self Advance Directives Directive Response Recorded Date/Time Ordered Resuscitation Status Full Code 04/19/14 7:30am Resuscitation Documents on File No 04/19/14 9:20am Chief Complaint and Reason for Visit Chief Complaint General Reason for Visit [id number] Gastroenteritis Hypokalemia Problems Medical Problems Problem Onset [...] Date 02/04/14 1:09pm Disposition 02 TO OBS [facility] Condition at Discharge Stable Instructions/Education Provided DI [...] F (96.8 - 99.1) Temperature (Calculated Celsius) 35.17026 degrees C (36.0 - 37.3) Temperature Source [...] March 20, 2009 3:14pm Complete - FAX [phone] Eosinophils # (Auto) February 04, 2014 6:18am [...] 08, 2013 7:36pm LAB TEST FORM REQUEST [id number] - Lactate Dehydrogenase March 20, 2009 3:15pm [...] 04, 2014 6:18am 10.2 % H 0-9.0 WZ-Tcp-O-Type Natriuretic Peptide December 02, 2013 3:55pm 1720 [...] 20, 2009 2:45pm Not done - PLEASE RESEARCH BIOSTATISTICIAN Thyroid Stimulating Hormone (TSH) November 23, 2013 [...] Has specimen been collected/obtained? Y Urine Specific [place] February 02, 2014 4:11pm 1.020 - Has [...] 2012 7:06pm Name: ANDIE LIU Unit #: [id number] : 1935 Sex: F Loc / Svc: SRG DOS: 04/19/14 Signed Report #: [id number] DIAGNOSTIC IMAGING REPORT TYPE OF EXAM: CT [...] mild central canal narrowing. Severe right and [id number]-[id number] left neural foraminal stenosis L2-L3: Posterior decompression. [...] 02/08/14 Encounters Encounter Location Date/Time Departed Clinic [facility] 04/19/14 8:56am Registered Clinic [facility] 02/08/14 8:34am Discharged Inpatient [facility] 02/03/14 6:28pm
--- OUTSIDE RECORDS SUMMARY | 2016-06-30 07:35 | XMS REPORT | Continuity of Care Document ---
Author Author [facility] LIVE Organization [facility] LIVE Address Unknown Phone Unavailable Support Name Relationship Address Phone TAMI LIU Next Of Kin [address] [place] [address] Unavailable Insurance Providers Payer Name Policy Number Subscriber Name Relationship [facility] [id number] Andie Liu Self Medicare [id number] Andie Liu Self [facility] Other [id number] Andie Liu Self Problems No Known Problems [...] Congestive Heart Failure N HAS BEEN DEBATED, "FARM CONTRACTOR SAYS NO" 7:00pm Hx Heart Attack N [...] Summary. Procedures Procedure Code Date PARTICAL MASTECTOMY 95488 08/31/08 BIOPSY/REMOVAL LYMPH NODES 07990 08/31/08 RA TRACER ID OF SENTINL NODE 60596 08/31/08 PACKED CELL TRANSFUSION 99.04 04/24/09 INCISION OF NOSE 21.1 10/14/11 REPAIR OF NASAL SEPTUM 10571 02/06/12 THER FX NASAL INF TURBINATE 97329 02/06/12 [id number] CANCER SCREENING; COLONOSCOPY ON INDIVIDUAL G0121 06/04/12 MUSCULOSKELETAL SURGERY 26921 07/11/13 Blood Culture 10/13/11 Eye/Ear/Nose/Throat Culture 10/13/11 Encounters Encounter Location Date/Time Departed Emergency Room [facility] 11/08/12 6:53pm Discharged Inpatient [facility] 10/13/11 4:58pm
--- OUTSIDE RECORDS SUMMARY | 2016-06-30 07:35 | XMS REPORT | Continuity of Care Document ---
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.1 AC POSTHEMORRHAG ANEMIA 09/21/2014 Deyvi Reza MD 287.5 THROMBOCYTOPENIA NOS 09/21/2014 Deyvi Reza MD 288.60 LEUKOCYTOSIS, UNSPECIFIED 09/21/2014 Deyvi Reza MD 311 DEPRESSIVE DISORDER NEC 09/21/2014 Deyvi Reza MD 333.94 RESTLESS LEGS SYNDROME 09/21/2014 Deyvi Reza MD 401.1 BENIGN HYPERTENSION 09/21/2014 Deyvi Reza MD 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 Type Provider Facility Loc./Unit Complaint [id number] 10/10/2015 15:15:00 2015 15:15:00 CAN Outpatient Alyssia DOWNING, [facility] W.RODGER [id number] 10/05/2015 12:15:00 2015 16:35:00 DIS Outpatient Alyssia DOWNING, [facility] W.JOHANNE [id number] 09/21/2014 05:06:00 2014 14:16:00 DIS Inpatient Juaquin DOWNING, [facility] W.9TN [id number] 09/14/2014 10:34:00 2014 10:34:00 DIS Outpatient Juaquin DOWNING, [facility] W.POA [id number] 09/11/2015 10:30:00 PEN Outpatient Alyssia DOWNING, [facility] W.END [id number] 08/31/2015 05:31:00 Document Registration
--- OUTSIDE RECORDS SUMMARY | 2016-06-30 07:38 | XMS REPORT | Continuity of Care Document ---
Author Author [facility] LIVE Organization [facility] LIVE Address Unknown Phone Unavailable Support Name Relationship Address Phone TAMI LIU Next Of Kin [address] [place] [address] Unavailable Insurance Providers Payer Name Policy Number Subscriber Name Relationship [facility] [id number] Andie Liu Self Medicare [id number] Andie Liu Self [facility] Other [id number] Andie Liu Self Problems No Known Problems [...] Congestive Heart Failure N HAS BEEN DEBATED, "STEAM CONDITIONER FILLING SAYS NO" 4:13pm Hx Heart Attack N [...] 2:20pm 45 MEQ/L N 30-90 Urine Specific [place] October 13, 2011 5:20pm 1.010 L - [...] 30, 2012 8:15am 0.2 % N 0.0-0.5 ZV-Ugl-D-Type Natriuretic Peptide October 13, 2011 5:25pm 1240 PG/ML H 0-175 Urine Microscopic Not Indicated October 13, 2011 5:20pm Not indicated - Procedures Procedure Code Date PARTICAL MASTECTOMY 72773 08/31/08 BIOPSY/REMOVAL LYMPH NODES 68106 08/31/08 RA TRACER ID OF SENTINL NODE 71786 08/31/08 PACKED CELL TRANSFUSION 99.04 04/24/09 INCISION OF NOSE 21.1 10/14/11 REPAIR OF NASAL SEPTUM 00641 02/06/12 THER FX NASAL INF TURBINATE 68795 02/06/12 [id number] CANCER SCREENING; COLONOSCOPY ON INDIVIDUAL G0121 06/04/12 MUSCULOSKELETAL SURGERY 86227 09/30/12 Blood Culture 10/13/11 Eye/Ear/Nose/Throat Culture 10/13/11 Encounters Encounter Location Date/Time Discharged Inpatient [facility] 10/13/11 4:58pm
--- OUTSIDE RECORDS SUMMARY | 2016-06-30 07:38 | XMS REPORT | Continuity of Care Document ---
Author Author Harman [facility] LIVE Organization [facility]IVE Address Unknown Phone Unavailable Support Name Relationship Address Phone SHAMA SULLIVAN MD Caregiver [address] [place] [phone] MYLENE GARCIA MD Caregiver [address] [place] [address] [phone] TAMI LIU Next Of Kin [address] [place] [address] Insurance Providers Payer Name Policy Number Subscriber Name Relationship Medicare [id number] Andie Liu 18 Self [facility] Other [id number] Andie Liu 18 Self [facility] [id number] Andie Liu 18 Self Advance Directives Directive [...] up lab - come to lab at [facility] on Monday December 02, 2013 to have [...] of your legs. 3.During office hours, call [phone] 4. After hours, please call [facility] at [phone], and have the sorter operator page your Surgeon IN THE EVENT [...] F (96.8 - 99.1) Temperature (Calculated Celsius) 36.76937 degrees C (36.0 - 37.3) Temperature Source [...] March 20, 2009 3:14pm Complete - FAX [phone] Eosinophils # (Auto) November 24, 2013 4:55am [...] 10, 2013 7:24pm LAB TEST FORM REQUEST [id number] - Lactate Dehydrogenase March 20, 2009 3:15pm [...] 24, 2013 4:55am 13.2 % H 0-9.0 PY-Oty-S-Type Natriuretic Peptide November 23, 2013 12:44pm 585 [...] 20, 2009 2:45pm Not done - PLEASE HAIRPIECE STYLIST Thyroid Stimulating Hormone (TSH) November 23, 2013 [...] Has specimen been collected/obtained? Y Urine Specific [place] November 23, 2013 2:15pm >=1.030 H - [...] 2012 7:06pm Name: ANDIE LIU Unit #: [id number] : 1935 Sex: F Loc / Svc: MED DOS: 11/23/13 Signed Report #: [id number] DIAGNOSTIC IMAGING REPORT TYPE OF EXAM: CHEST, [...] Encounter Location Date/Time Discharged Inpatient [facility] 11/23/13 4:12pm Registered Clinic [facility] 10/24/13 8:06am Recent Diagnosis Acute kidney injury
--- OUTSIDE RECORDS SUMMARY | 2016-06-30 07:39 | XMS REPORT | Continuity of Care Document ---
Author Author Harman [facility] LIVE Organization [facility] Address Unknown Phone Unavailable Support Name Relationship Address Phone MYLENE GARCIA MD Caregiver [address] [phone] LAWRENCE ALMONTE MD Caregiver [address] [place] [address] TAMI LIU DPOA Next Of Kin [address] [place] [address] Insurance Providers Payer Name Policy Number Subscriber Name Relationship Medicare [id number] Andie Liu 19 Self [facility] Other [id number] Andie Liu Self [facility] [id number] Andie Liu Self Advance Directives Directive Response [...] of your legs. 3.During office hours, call [phone] 4. After hours, please call [facility] at [phone], and have the shellfish dredge operator page your Surgeon IN THE EVENT [...] F (96.8 - 99.1) Temperature (Calculated Celsius) 36.10581 degrees C (36.0 - 37.3) Temperature Source [...] March 20, 2009 3:14pm Complete - FAX [phone] Eosinophils # (Auto) February 04, 2014 6:18am [...] 08, 2013 7:36pm LAB TEST FORM REQUEST [id number] - Lactate Dehydrogenase March 20, 2009 3:15pm [...] 04, 2014 6:18am 10.2 % H 0-9.0 XJ-Fgz-B-Type Natriuretic Peptide December 02, 2013 3:55pm 1720 [...] 20, 2009 2:45pm Not done - PLEASE GRAIN ELEVATOR WORKER Thyroid Stimulating Hormone (TSH) November 23, 2013 [...] Has specimen been collected/obtained? Y Urine Specific [place] February 02, 2014 4:11pm 1.020 - Has [...] 2012 7:06pm Name: ANDIE LIU Unit #: [id number] : 1935 Sex: F Loc / Svc: ED DOS: 02/02/14 Signed Report #: [id number] DIAGNOSTIC IMAGING REPORT TYPE OF EXAM: CT [...] procedures. Encounters Encounter Location Date/Time Discharged Inpatient [facility] 02/03/14 6:28pm Registered Clinic [facility] 12/08/13 12:17pm Registered [facility] 12/02/13 4:56pm Discharged Inpatient [facility] 11/23/13 4:12pm Recent Diagnosis Gastroenteritis
[2016-06-30 07:52] LABS: BASOPHILS % (AUTO) 0.2 % (0-2); EOSINOPHILS # (AUTO) 0.1 T/MM3 (0-0.5); EOSINOPHILS % (AUTO) 1.8 % (0-4); HCT - HEMATOCRIT 22.7 % (36-46); HGB - HEMOGLOBIN 6.2 GM/DL (12-16); IMMATURE GRANULOCYTE # (AUTO) 0.01 T/MM3 (0.00-0.03); IMMATURE GRANULOCYTE % (AUTO) 0.2 % (0.0-0.5); LYMPHOCYTES # (AUTO) 1.5 T/MM3 (1-4.8); LYMPHOCYTES % (AUTO) 32.4 % (23-45); MEAN CORPUSCULAR HGB 25.7 UUG (26-34); MEAN CORPUSCULAR HGB CONC(MCHC 27.3 GM/DL (31-37); MEAN CORPUSCULAR VOLUME 94.2 UM3 (80-100); MEAN PLATELET VOLUME 12.6 UM3 (9.4-12.4); MONOCYTES # (AUTO) 0.5 T/MM3 (0-0.8); MONOCYTES % (AUTO) 10.7 % (0-9.0); NEUTROPHILS #(AUTO)-ABSOLUTE 2.5 T/MM3 (1.8-7.7); NEUTROPHILS % (AUTO) 54.7 % (33-66); RED BLOOD COUNT 2.41 M/MM3 (4.00-5.20); WBC - WHITE BLOOD COUNT 4.5 T/MM3 (4.5-11.0)
--- NOTE | 2016-06-30 07:58 | DI ---
INDICATION: ITS.REASON: cough shortness of air weakness PROCEDURE: CHEST 2-VIEWS UPRIGHT (PA \T\ LAT) Encounter: Initial COMPARISON: July 07, 2015 and October 23, 2014 FINDINGS: Left pacemaker. There are some chronically prominent interstitial markings in both lung bases without significant change from the two prior studies. Upper lung echols are clear. No pleural effusion or pneumothorax. Heart size and mediastinal contours are within normal limits. Pulmonary vascularity is unchanged. Impression: Stable nonspecific basilar opacities could be due to scarring or fibrosis. Mild inflammatory or infectious pneumonitis cannot be entirely excluded. .
[2016-06-30 08:04] LABS: ALBUMIN 3.2 G/DL (3.5-5.0); ALBUMIN/GLOBULIN RATIO 1.2 RATIO (1.1-2.2); ALKALINE PHOSPHATASE 49 U/L (38-126); ALT (SGPT) 23 U/L (9-52); ANION GAP 13 MEQ/L (5-15); AST (SGOT) 24 U/L (14-36); BUN/CREATININE RATIO 20 RATIO (6-26); CHLORIDE 104 MEQ/L (98-107); CO2 - CARBON DIOXIDE 26 MEQ/L (22-30); CREATININE 1.4 MG/DL (0.7-1.2); GLOMERULAR FILTRATION RATE 36; GLUCOSE 102 MG/DL (65-110); LACTATE - LACTIC ACID 2.5 MMOL/L (0.6-2.2); LIPASE 82 U/L (23-300); SODIUM 143 MEQ/L (134-144); TOTAL PROTEIN 5.8 G/DL (6.3-8.2)
[2016-06-30 08:13] LABS: PROBNP 2340 PG/ML (0-175)
--- NOTE | 2016-06-30 08:22 | NUR ---
PAIN MEDICATION GIVEN PER ORDERS. PATIENT RATES HEADACHE AND BACK PAIN 8/10
[2016-06-30] MEDS ORDERED: MORPHINE SULFATE 4 MG SYRINGE IV ONE (08:30)
--- NOTE | 2016-06-30 08:45 | NUR ---
RECTAL EXAM PERFORMED BY AT THIS TIME
[2016-06-30] MEDS ORDERED: MIRA25TA PO (08:56)
[2016-06-30] MEDS ORDERED: ATEN50TA PO (08:56)
[2016-06-30] MEDS ORDERED: ACET-2321 PO (08:56)
[2016-06-30] MEDS ORDERED: MELA3TAB30 PO (08:56)
[2016-06-30] MEDS ORDERED: PRED5TAB PO (08:56)
--- NOTE | 2016-06-30 09:00 | NUR ---
STRAIGHT CATH PERFORMED AT THIS TIME. URINE SPECIMEN OBTAINED AND SENT TO LAB
[2016-06-30] MEDS ORDERED: SALINE FLUSH 10ml SYRINGE ONE (09:42)
[2016-06-30] MEDS ORDERED: NORMAL SALINE 100 ML ONE (09:42)
[2016-06-30] MEDS ORDERED: IOHEXOL 350 MG/ML 75ml INJECTION ONE (09:42)
[2016-06-30 09:43] LABS: BLOOD, URINE 3+ (NEGATIVE); COLOR,URINE YELLOW (YELLOW); LEUKOCYTE ESTERASE ,URINE 1+ (NEGATIVE); NITRITE,URINE POSITIVE (NEGATIVE); UROBILINOGEN,URINE 0.2 EU/DL (NORMAL)
[2016-06-30 09:50] LABS: WBC CLUMPS,URINE MANY; WBC,URINE TNTC /HPF (0-5)
[2016-06-30 09:51] LABS: BACTERIA,URINE 4+ (NEGATIVE); RBC,URINE 30-50 /HPF (0-3); SQUAMOUS EPITHELIAL CELL,UR 0-5
[2016-06-30] MEDS ORDERED: CEFTRIAXONE I.V. (ER USE ONLY) 1 G in NORMAL SALINE 100 ML IV ONE (10:00)
--- NOTE | 2016-06-30 10:17 | DI ---
Indication: ITS.REASON: elevated d-dimer PROCEDURE: CTA PULMONARY EMBOLI: Encounter: Initial Comparison: CT abdomen and pelvis dated July 06, 2015 Technique: Axial CT pulmonary angiographic phase images were performed through the chest after the administration of intravenous contrast. Coronal and Sagittal MIP reconstructed images were created and reviewed. Automated Exposure Control and Iterative Reconstruction dose reducing techniques were utilized. Contrast: Omnipaque 350 70 mL Findings: Pulmonary arteries: Exam is diagnostic to the subsegmental pulmonary arterial level. No filling defects identified to suggest a pulmonary embolus. Other findings: Small right and trace left pleural effusions. Stable subpleural 7 mm left lower lobe nodule on image #44 at the costophrenic angle. There is some probable atelectasis in the right middle lobe. No focal pneumonia. The central airways are patent. Left pacemaker. No axillary or style adenopathy. Heart size is normal. No pericardial effusion. The upper abdomen shows no acute findings. Nodular cirrhotic appearing liver is again seen. Splenomegaly. Bone windows are stable. Impression: 1. No pulmonary embolus. 2. Small right and trace left pleural effusions could be due to mild volume overload or pulmonary vascular congestion. .
--- OUTSIDE RECORDS SUMMARY | 2016-06-30 10:40 | XMS REPORT | Continuity of Care Document ---
Author Author [facility] Organization [facility] Address Unknown Phone Unavailable Support Name Relationship Address Phone TAMI LIU Next Of Kin [address] [place] [address] Unavailable Insurance Providers Payer Name Policy Number Subscriber Name Relationship [facility] [id number] Andie Liu Self Medicare [id number] Andie Liu Self [facility] Other [id number] Andie Liu Self Problems No Known Problems [...] Congestive Heart Failure N HAS BEEN DEBATED, "PROFESSIONAL ENGINEER SAYS NO" 7:00pm Hx Heart Attack N [...] Summary. Procedures Procedure Code Date PARTICAL MASTECTOMY 55722 08/31/08 BIOPSY/REMOVAL LYMPH NODES 61088 08/31/08 RA TRACER ID OF SENTINL NODE 04127 08/31/08 PACKED CELL TRANSFUSION 99.04 04/24/09 INCISION OF NOSE 21.1 10/14/11 REPAIR OF NASAL SEPTUM 53204 02/06/12 THER FX NASAL INF TURBINATE 94322 02/06/12 [id number] CANCER SCREENING; COLONOSCOPY ON INDIVIDUAL G0121 06/04/12 MUSCULOSKELETAL SURGERY 81366 07/11/13 Blood Culture 10/13/11 Eye/Ear/Nose/Throat Culture 10/13/11 Encounters Encounter Location Date/Time Departed Emergency Room [facility] 11/08/12 6:53pm Discharged Inpatient [facility] 10/13/11 4:58pm
--- OUTSIDE RECORDS SUMMARY | 2016-06-30 10:41 | XMS REPORT | Continuity of Care Document ---
Author Author [facility] Organization [facility] Address Unknown Phone Unavailable Support Name Relationship Address Phone TERRY MALHOTRA MD Caregiver [address] [place] [address] Ext [phone] MYLENE GARCIA MD Caregiver [address] [place] [address] [place], [place] [phone] TAMI LIU DPOA Next Of Kin [address] [place], [place] [id number] Insurance Providers Payer Name Policy Number Subscriber Name Relationship Medicare [id number] Andie Liu 19 Self [facility] Other [id number] Andie Liu 19 Self [facility] [id number] Andie Liu 19 Self Advance Directives Directive Response Recorded Date/Time Ordered Resuscitation Status Full Code 04/19/14 7:30am Resuscitation Documents on File No 04/19/14 9:20am Chief Complaint and Reason for Visit Chief Complaint General Reason for Visit [id number] Gastroenteritis Hypokalemia Problems Medical Problems Problem Onset [...] Date 02/04/14 1:09pm Disposition 02 TO OBS [facility] Condition at Discharge Stable Instructions/Education Provided DI [...] F (96.8 - 99.1) Temperature (Calculated Celsius) 35.32103 degrees C (36.0 - 37.3) Temperature Source [...] March 20, 2009 3:14pm Complete - FAX [phone] Eosinophils # (Auto) February 04, 2014 6:18am [...] 08, 2013 7:36pm LAB TEST FORM REQUEST [id number] - Lactate Dehydrogenase March 20, 2009 3:15pm [...] 04, 2014 6:18am 10.2 % H 0-9.0 VE-Kih-Y-Type Natriuretic Peptide December 02, 2013 3:55pm 1720 [...] 20, 2009 2:45pm Not done - PLEASE TRIMMER BUFFING WHEEL Thyroid Stimulating Hormone (TSH) November 23, 2013 [...] Has specimen been collected/obtained? Y Urine Specific [place] February 02, 2014 4:11pm 1.020 - Has [...] 2012 7:06pm Name: ANDIE LIU Unit #: [id number] : 1935 Sex: F Loc / Svc: SRG DOS: 04/19/14 Signed Report #: [id number] DIAGNOSTIC IMAGING REPORT TYPE OF EXAM: CT [...] mild central canal narrowing. 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 [...] 02/08/14 Encounters Encounter Location Date/Time Departed Clinic [facility] 04/19/14 8:56am Registered Clinic [facility] 02/08/14 8:34am Discharged Inpatient [facility] 02/03/14 6:28pm
--- NOTE | 2016-06-30 10:45 | NUR ---
ADMIT PATIENT TRANSFERED TO CCU BY CART AT THIS TIME ROCEPHIN INFUSION COMPLETE AT THIS TIME. PERSONAL BELONGINGS AND WALKER SENT TO ROOM WITH PATIENT
--- OUTSIDE RECORDS SUMMARY | 2016-06-30 10:45 | XMS REPORT | Continuity of Care Document ---
Author Author [facility] Organization [facility] Address Unknown Phone Unavailable Support Name Relationship Address Phone SHAMA SULLIVAN MD Caregiver [address] [place] [phone] MYLENE GARCIA MD Caregiver [address] [place] [address] [phone] TAMI LIU Next Of Kin [address] [place] [address] Insurance Providers Payer Name Policy Number Subscriber Name Relationship Medicare [id number] Andie Liu 19 Self [facility] Other [id number] Andie Liu 19 Self [facility] [id number] Andie Liu 19 Self Advance Directives Directive [...] up lab - come to lab at [facility] on Monday December 02, 2013 to [...] of your legs. 3.During office hours, call [phone] 4. After hours, please call [facility] at [phone], and have the chain hoist operator page your Surgeon IN THE EVENT [...] F (96.8 - 99.1) Temperature (Calculated Celsius) 36.70023 degrees C (36.0 - 37.3) Temperature Source [...] March 20, 2009 3:14pm Complete - FAX [phone] Eosinophils # (Auto) November 24, 2013 4:55am [...] 10, 2013 7:24pm LAB TEST FORM REQUEST [id number] - Lactate Dehydrogenase March 20, 2009 3:15pm [...] 24, 2013 4:55am 13.2 % H 0-9.0 RA-Azy-K-Type Natriuretic Peptide November 23, 2013 12:44pm 585 [...] 20, 2009 2:45pm Not done - PLEASE AUTOMATIC CLIPPER AND STRIPPER Thyroid Stimulating Hormone (TSH) November 23, 2013 [...] Has specimen been collected/obtained? Y Urine Specific [place] November 23, 2013 2:15pm >=1.030 H - [...] 2012 7:06pm Name: ANDIE LIU Unit #: [id number] : 1935 Sex: F Loc / Svc: MED DOS: 11/23/13 Signed Report #: [id number] DIAGNOSTIC IMAGING REPORT TYPE OF EXAM: CHEST, [...] procedures. Encounters Encounter Location Date/Time Discharged Inpatient [facility] 11/23/13 4:12pm Registered Clinic [facility] 10/24/13 8:06am Recent Diagnosis Acute kidney injury
--- OUTSIDE RECORDS SUMMARY | 2016-06-30 10:45 | XMS REPORT | Continuity of Care Document ---
Author Author [facility] Organization [facility] Address Unknown Phone Unavailable Support Name Relationship Address Phone TAMI LIU Next Of Kin [address] [place] [address] Unavailable Insurance Providers Payer Name Policy Number Subscriber Name [facility] [id number] Andie Liu Self Medicare [id number] Andie Liu Self [facility] Other [id number] Andie Liu Self Problems No Known Problems [...] Congestive Heart Failure N HAS BEEN DEBATED, "WIRE DRAWING MACHINE OPERATOR SAYS NO" 4:13pm Hx Heart Attack N [...] 2:20pm 45 MEQ/L N 30-90 Urine Specific [place] October 13, 2011 5:20pm 1.010 L - [...] 30, 2012 8:15am 0.2 % N 0.0-0.5 ND-Zat-B-Type Natriuretic Peptide October 13, 2011 5:25pm 1240 PG/ML H 0-175 Urine Microscopic Not Indicated October 13, 2011 5:20pm Not indicated - Procedures Procedure Code Date PARTICAL MASTECTOMY 19354 08/31/08 BIOPSY/REMOVAL LYMPH NODES 85185 08/31/08 RA TRACER ID OF SENTINL NODE 01437 08/31/08 PACKED CELL TRANSFUSION 99.04 04/24/09 INCISION OF NOSE 21.1 10/14/11 REPAIR OF NASAL SEPTUM 10587 02/06/12 THER FX NASAL INF TURBINATE 27508 02/06/12 [id number] CANCER SCREENING; COLONOSCOPY ON INDIVIDUAL G0121 06/04/12 MUSCULOSKELETAL SURGERY 05332 09/30/12 Blood Culture 10/13/11 Eye/Ear/Nose/Throat Culture 10/13/11 Encounters Encounter Location Date/Time Discharged Inpatient [facility] 10/13/11 4:58pm
--- OUTSIDE RECORDS SUMMARY | 2016-06-30 10:46 | XMS REPORT | Continuity of Care Document ---
Author Author [facility] Organization [facility] Address Unknown Phone Unavailable Support Name Relationship Address Phone MYLENE GARCIA MD Caregiver [address] [place] [phone] LAWRENCE ALMONTE MD Caregiver [address] [place] [phone] TAMI LIU DPOA Next Of Kin [address] [place] [address] Insurance Providers Payer Name Policy Number Subscriber Name Relationship Medicare [id number] Andie Liu 19 Self [facility] Other [id number] Andie Liu Self [facility] [id number] Andie Liu Self Advance Directives Directive Response [...] of your legs. 3.During office hours, call [phone] 4. After hours, please call [facility] at [phone], and have the grain drier operator page your Surgeon IN THE EVENT [...] F (96.8 - 99.1) Temperature (Calculated Celsius) 36.73640 degrees C (36.0 - 37.3) Temperature Source [...] March 20, 2009 3:14pm Complete - FAX [phone] Eosinophils # (Auto) February 04, 2014 6:18am [...] 08, 2013 7:36pm LAB TEST FORM REQUEST [id number] - Lactate Dehydrogenase March 20, 2009 3:15pm [...] 04, 2014 6:18am 10.2 % H 0-9.0 GY-Ycw-B-Type Natriuretic Peptide December 02, 2013 3:55pm 1720 [...] 20, 2009 2:45pm Not done - PLEASE TIMBER HAND Thyroid Stimulating Hormone (TSH) November 23, 2013 [...] Has specimen been collected/obtained? Y Urine Specific [place] February 02, 2014 4:11pm 1.020 - Has [...] 2012 7:06pm Name: ANDIE LIU Unit #: [id number] : 1935 Sex: F Loc / Svc: ED DOS: 02/02/14 Signed Report #: [id number] DIAGNOSTIC IMAGING REPORT TYPE OF EXAM: CT [...] procedures. Encounters Encounter Location Date/Time Discharged Inpatient [facility] 02/03/14 6:28pm Registered Clinic [facility] 12/08/13 12:17pm Registered [facility] 12/02/13 4:56pm Discharged Inpatient [facility] 11/23/13 4:12pm Recent Diagnosis Gastroenteritis
[2016-06-30 11:39] LABS: INR 1.53 (0.76-1.04); PROTHROMBIN TIME 16.7 SEC (9.31-12.49); PTT 31.1 SEC (24-36)
--- NOTE | 2016-06-30 12:00 | HPPDOC ---
DARRICK GLEASON V GARMENT FITTER 06/30/16 1200: HPI - Adult Date DATE: 06/30/16 TIME: 11:50 General Chief Complaint: Weakness, Anemia, UTI History of Present Illness Patient is a pleasant 80-year-old female who was brought to the emergency room today for evaluation of significant weakness. She reports that she has not felt well for the last several days. On Tuesday 06/27. She did have some diarrhea stools , over the next several days, she continued to have worsening weakness and was brought to the emergency room this morning for further evaluation and treatment. Laboratory studies and CT scan were obtained in the emergency room, and patient was found to be significantly anemic with a hemoglobin of 6.2. WBC count 4.5, RBCs 2.41, hematocrit 22.7, platelet count 92. Sodium is 143, potassium 5.0, BUNs 20, creatinine 1.4, cochlea did osmolality 281. LFTs are normal. Troponin was undetectable, proBNP 20/3/40. Venous lactate was found to be elevated at 2.5, pro calcitonin 0.05, TSH 10.80. INR 1.53, platelet count 31.1. A urinalysis was obtained showing 2+ protein, 3+ blood, positive nitrates , 1+ leukocyte esterase, 30-50 RBCs with 2 numerous to count WBCs with clumps present. Chest x-ray was initially obtained. Obtained showing nonspecific bibasilar opacities or fibrosis. Given the elevated d-dimer of 870 CT of the chest was obtained which did reveal small right and trace left pleural effusions. Otherwise, no evidence of pulmonary emboli. Given symptomatic weakness, accompanied with significant anemia and presence of sepsis/UTI. The hospitalist services were contacted and accepted patient for inpatient admission to the ICU for further evaluation and treatment. It is expected that her stay will be greater than 2 overnights. Bhavna is seen today for inital examination. She is pale in color and appears weak. She reports she has not felt well for " a year" since she was admitted and treated for sepsis. He notes this was the beginning of a significant overall decline for her last June. Was unable to return home independently after that illness. Acutely she has not felt well for the last 3-4 days. She reports just feeling significantly weak. Did have some mild amount of diarrhea last Tuesday 06/27, however, this resolved. She denies any acute bleeding in her stools. Was able to review old records and it appears that patient had seen for "liver failure" in 2016. He he recommended a liver sonogram every 6 months. Last office visit was in September 2015. Past Medical History Past Medical History Paroxysmal atrial fibrillation Congestive heart failure Chronic kidney disease. Hypertension History of breast cancer-2008 Chronic anemia Chronic back pain Hypothyroidism Chronic anticoagulation ECHO- 2016 EF- 55%. Aortic valve sclerosis with mild aortic regurgitation. Moderate tricuspid insufficiency Surgical History Patient's Surgical History: Tonsillectomy, age 6. Colonoscopy, 1997, 2002, 2012. EGD and colonoscopy, 2001. Open cholecystectomy, 2001 Bilateral cataract extraction and lens implantation, 2000. Surgery for ankle spurs twice [facility]BS[facility] with incidental appendectomy, 1983 Right Achilles tendon repair. Carpal tunnel release. Left knee replacement, 2004. Hemorrhoidectomy, 2005. Right corneal surgery. Posterior decompression and fusion at L4-L5, 2006. 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 L3-L4 decompression and extension of fusion to L2-L3, 2009 Septoplasty, 2011. Ileal band release of left hip, 2012. Permanent pacemaker placement, 2013. Bone marrow biopsy, 2013 L1-L2 Radical discectomy, L1-L2. Anterior lumbar interbody fusion, 2014 Back surgery, summer 2014 Current Medications Home Meds Active Scripts Omeprazole (Prilosec) 20 Mg Capsule, 20 MG PO ACBID, #0 CAP Prov:KURTIS FOOTE MD 07/09/15 Amiodarone HCl (Amiodarone HCl) 200 Mg Tablet, 200 MG PO DAILY for atrial fibrillation, #0 TAB Prov:KURTIS FOOTE MD 07/09/15 Hydrocodone/Acetaminophen ([place] 10-325 Tablet) 1 Each Tablet, 1 TAB PO Q6H Y for PRN ORDERS, #30 TAB Prov:KURTIS FOOTE MD 07/09/15 Reported Medications Melatonin (Melatonin) 3 Mg Tablet, 5-10 MG PO HS Y for [place], #30 TAB 2 Refills 06/30/16 Mirabegron (Myrbetriq) 25 Mg Tab.er.24h, 25 MG PO DAILY, TAB 06/30/16 Prednisone (Prednisone) 5 Mg Tablet, 7.5 MG PO WB, TAB Take 1 1/2 (5 mg) tablets, by mouth, one time a day with breakfast. 06/30/16 Atenolol (Atenolol) 50 Mg Tablet, 1 TAB PO DAILY, TAB 06/30/16 Acetaminophen (Tylenol) 325 Mg Tablet, 1-2 TAB PO PRN, #60 TAB 2 Refills 06/30/16 Bumetanide (Bumetanide) 0.5 Mg Tablet, 1 TAB PO BID, TAB 06/01/16 Donepezil HCl (Donepezil HCl) 5 Mg Tablet, 1 TAB PO HS, #30 TAB 5 Refills 06/01/16 Rifaximin (Xifaxan) 550 Mg Tablet, 550 MG PO BID, TAB 06/01/16 Potassium Chloride (Potassium Chloride) 10 Meq Capsule.er, 2 CAP PO BIDWM, CAP Take 1 capsule, by mouth, two times a day with meals 06/01/16 Polyethylene Glycol 3350 (Miralax) 17 Gm Powd.pack, 1 PACKET PO DAILY Y for CONSTIPATION, #30 PACKET 3 Refills 06/01/16 Ospemifene (Osphena) 60 Mg Tablet, 60 MG PO DAILY 07/05/15 Levothyroxine Sodium (Levothyroxine Sodium) 112 Mcg Tablet, 112 MCG PO ACB, TAB Once daily before breakfast. 07/05/15 Calcium Carbonate/Vitamin D3 (Calcium 600 + Vit D Caplet) 1 Each Tablet, PO DAILY 10/16/14 Pramipexole Di-HCl (Mirapex) 1 Mg Tablet, 1 MG DAILY 04/19/14 Divalproex Sodium (Divalproex Sodium) 500 Mg Tablet.dr, 500 MG PO DAILY, #90 11/23/13 Apixaban (Eliquis) 5 Mg Tablet, 5 MG PO BID, #180 11/23/13 Sertraline Hcl (Zoloft) 100 Mg Tablet, 100 MG PO DAILY, 0 Refills 09/27/09 Allergies: Coded Allergies: phenylbutazone (Verified Allergy, Mild, HIVES (BUTAZOLIDIN - MANU DISC), ) lansoprazole (Verified Adverse Reaction, Mild, DIARRHEA, 06/02/16) Family History Family History: Father age 87, CHF. Mother age 20, pancreatic cancer. Social History Smoking Status: Never smoker Substance Use Type: does not use Substance last used: prior to arrival Housing: assisted living facility ([place]) Advance Directives: Yes DPOA for Healthcare Only ([facility] [place] [facility]) Social History Comments PCP Dr Sadie Taveras [place] Hole Puncher- Dr Dr Pimentel Dental Mechanic/oncologist- Dr Zuniga Crop Specialist-Dr. Cade Review of Systems Constitutional: REPORTS: fatigue, weakness ENMT Mouth/Throat: DENIES: change in voice GI Upper Abdomen: DENIES: pain Lower Abdomen: diarrhea, DENIES: constipation General: dysuria Musculoskeletal General: pain (lumbar back) Integumentary Skin: rash All Other Systems All Other Systems: Reviewed Physical Exam General General Nourishment: well nourished, well developed Vital Signs Vital Signs Date Time Temp Pulse Resp B/P Pulse Ox O2 Delivery O2 Flow Rate FiO2 06/30/16 11:06 62 06/30/16 10:45 98.5 22 114/41 100 Room Air Height (Feet): 5 Height (Inches): 3.00 Eyes Brief: FOUND: EOMI, PERRL ENMT Brief: FOUND: mucosa moist, normal dentition, NOT FOUND: pharnyx erythema Respiratory Brief: FOUND: clear all echols, equal bilaterally, NOT FOUND: wheezes Cardiovascular (brief) Cardiac Brief: FOUND: regular rate, regular rhythm, NOT FOUND: murmur, pedal edema Abdomen (brief) Abdominal Brief: FOUND: BS normo active x4, soft Integumentary (brief) Integumentary Brief: FOUND: warm, NOT FOUND: pink (pale in color) Neurologic (brief) Neurological Brief: FOUND: cranial 2-12 intact Neurologic RN Documented GCS Eye Opening: Verbal: Motor: Total: Psychiatric (brief) FOUND: alert, attentive, normal affect, oriented Laboratory Laboratory Tests Test 06/30/16 07:28 06/30/16 07:37 06/30/16 09:05 06/30/16 11:46 Prothromb Time International Ratio 1.53 Activated Partial Thromboplast Time 31.1SEC White Blood Count 4.5T/MM3 Red Blood Count 2.41M/MM3 Hemoglobin 6.2GM/DL Hematocrit 22.7% Mean Corpuscular Volume 94.2UM3 Mean Corpuscular Hemoglobin 25.7UUG Mean Corpuscular Hemoglobin Concent 27.3GM/DL RDW Standard Deviation 52.7FL Platelet Count 92T/MM3 Mean Platelet Volume 12.6UM3 Immature Granulocyte % (Auto) 0.2% Neutrophils (%) (Auto) 54.7% Lymphocytes (%) (Auto) 32.4% Monocytes (%) (Auto) 10.7% Eosinophils (%) (Auto) 1.8% Basophils (%) (Auto) 0.2% Absolute Immature Granulocyte (auto 0.01T/MM3 Absolute Neutrophils (auto) 2.5T/MM3 Absolute Lymphocytes (auto) 1.5T/MM3 Absolute Monocytes (auto) 0.5T/MM3 Absolute Eosinophils (auto) 0.1T/MM3 Absolute Basophils (auto) 0.0T/MM3 D-Dimer 870NG/ML Turbidity < 20 Sodium Level 143MEQ/L Potassium Level 5.0MEQ/L Chloride Level 104MEQ/L Carbon Dioxide Level 26MEQ/L Anion Gap 13MEQ/L Blood Urea Nitrogen 28.0MG/DL Creatinine 1.4MG/DL Glomerular Filtration Rate Calc 36 BUN/Creatinine Ratio 20RATIO Glucose Level 102MG/DL Calculated Osmolality 281MOSM/KG Calcium Level 9.0MG/DL Magnesium Level 2.0MG/DL Total Bilirubin 0.70MG/DL Icterus Index < 2 Aspartate Amino Transf (AST/SGOT) 24U/L Alanine Aminotransferase (ALT/SGPT) 23U/L Alkaline Phosphatase 49U/L Troponin I < 0.012ng/ml EK-Ern-A-Type Natriuretic Peptide 2340PG/ML Total Protein 5.8G/DL Albumin 3.2G/DL Globulin 2.6G/DL Albumin/Globulin Ratio 1.2RATIO Lipase 82U/L Plasma Lactate 2.5MMOL/L Procalcitonin 0.05NG/ML Thyroid Stimulating Hormone (TSH) 10.80MIU/L Chemistry Specimen Hemolysis < 15 Urine Collection Type Voided-not cc-midstr Urine Color Yellow Urine Turbidity Cloudy Urine pH 5.5 Urine Specific [place] 1.025 Urine Protein 2+ Urine Glucose (UA) Negative Urine Ketones Negative Urine Blood 3+ Urine Nitrite Positive Urine Bilirubin Negative Urine Urobilinogen 0.2EU/DL Urine Leukocyte Esterase 1+ Urine RBC 30-50/HPF Urine WBC Tntc/HPF Urine WBC Clumps Many Urine Squamous Epithelial Cells 0-5 Urine Bacteria 4+ Urine Culture Indicated Cult reflexed &setup Assessment & Plan Problems: (1) Sepsis Status: Acute Assessment & Plan: Magnifications of sepsis include the following- 1. UTI 2. Elevated Lactate- 2.5 3. Tachypneic 28/min (2) Anemia Status: Acute (3) Thrombocythemia Status: Chronic Assessment & Plan: Likely chronic (4) UTI (lower urinary tract infection) Status: Acute Assessment & Plan: Acute (5) HTN (hypertension) Status: Chronic (6) GERD (gastroesophageal reflux disease) Status: Chronic (7) Hypothyroidism Status: Chronic (8) Depression Status: Chronic (9) Osteoarthritis Status: Chronic (10) CHF following non-cardiac surgery, postop Status: Chronic (11) Anticoagulated Status: Chronic (12) Cirrhosis Status: Chronic (13) Paroxysmal atrial fibrillation Status: Chronic (14) CKD (chronic kidney disease), stage III Status: Chronic (15) Chronic back pain Status: Chronic (16) Invasive ductal carcinoma of breast, stage 2 Onset Date: ~ 2006 Status: Chronic Plan/Intensity of Service Admit patient to inpatient status under the care of Dr Burroughs for Sepsis with UTI and Anemia Patient started on Rocephin 1 mg IV while in the ER. Will continue with daily dosing. Urine and blood cultures pending. Follow serial lactate levels as per sepsis protocol. Patient is type, screen and crossmatched for 1 unit of packed red blood cells transfusion given anemia. Patient is chronically on Eliquis for chronic atrial fibrillation. She denies having black stools and attributes some red stools to Hemorrhoids Surgical consultation by Dr. Winters In light of anemia. Patient may have clear liquid diet now. Will follow platelet count as patient does have thrombocytopenia, however, this appears to be chronic. She does see Dr. Zuniga for chronic anemia since her breast cancer in 2008. Plt count in in 80-90's. Will obviously need to hold all anticoagulation given anemia with probably Gi bleeding. CHADS2 score 5.9% (moderate risk) SCDs to bilateral lower ext for DVT prophylaxis Will need to discuss and review all home medications with attending, Dr Burroughs. Recheck CBC and a BMP tomorrow morning to follow blood counts, renal function, electro-lites. At time of discharge medical care will return to primary care provider, Dr. Taveras Code Status Do Not Resuscitate Hospital Course Summary Disclaimer The hospital course summary below is not to be considered part of the above Progress Note. Hospital Course Summary 06/30 Admit patient to inpatient status under the care of Dr Burroughs for Sepsis with UTI and Anemia Patient started on Rocephin 1 mg IV while in the ER. Will continue with daily dosing. Urine and blood cultures pending. Follow serial lactate levels as per sepsis protocol. Patient is type, screen and crossmatched for 1 unit of packed red blood cells transfusion given anemia. Patient is chronically on Eliquis for chronic atrial fibrillation. She denies having black stools and attributes some red stools to Hemorrhoids Surgical consultation by Dr. Winters In light of anemia. Patient may have clear liquid diet now. Will follow platelet count as patient does have thrombocytopenia, however, this appears to be chronic. She does see Dr. Zuniga for chronic anemia since her breast cancer in 2008. Plt count in in 80-90's. Will obviously need to hold all anticoagulation given anemia with probably Gi bleeding. CHADS2 score 5.9% (moderate risk) SCDs to bilateral lower ext for DVT prophylaxis Will need to discuss and review all home medications with attending, Dr Burroughs. Recheck CBC and a BMP tomorrow morning to follow blood counts, renal function, electro-lites. At time of discharge medical care will return to primary care provider, CONNIE Clifford MD 06/30/16 1613: Past Medical History Current Medications Home Meds Active Scripts Omeprazole (Prilosec) 20 Mg Capsule, 20 MG PO ACBID, #0 CAP Prov:KURTIS FOOTE MD 07/09/15 Amiodarone HCl (Amiodarone HCl) 200 Mg Tablet, 200 MG PO DAILY for atrial fibrillation, #0 TAB Prov:KURTIS FOOTE MD 07/09/15 Hydrocodone/Acetaminophen ([place] 10-325 Tablet) 1 Each Tablet, 1 TAB PO Q6H Y for PRN ORDERS, #30 TAB Prov:KURTIS FOOTE MD 07/09/15 Reported Medications Melatonin (Melatonin) 3 Mg Tablet, 5-10 MG PO HS Y for VA, #30 TAB 2 Refills 06/30/16 Mirabegron (Myrbetriq) 25 Mg Tab.er.24h, 25 MG PO DAILY, TAB 06/30/16 Prednisone (Prednisone) 5 Mg Tablet, 7.5 MG PO WB, TAB Take 1 1/2 (5 mg) tablets, by mouth, one time a day with breakfast. 06/30/16 Atenolol (Atenolol) 50 Mg Tablet, 1 TAB PO DAILY, TAB 06/30/16 Acetaminophen (Tylenol) 325 Mg Tablet, 1-2 TAB PO PRN, #60 TAB 2 Refills 06/30/16 Bumetanide (Bumetanide) 0.5 Mg Tablet, 1 TAB PO BID, TAB 06/01/16 Donepezil HCl (Donepezil HCl) 5 Mg Tablet, 1 TAB PO HS, #30 TAB 5 Refills 06/01/16 Rifaximin (Xifaxan) 550 Mg Tablet, 550 MG PO BID, TAB 06/01/16 Potassium Chloride (Potassium Chloride) 10 Meq Capsule.er, 2 CAP PO BIDWM, CAP Take 1 capsule, by mouth, two times a day with meals 06/01/16 Polyethylene Glycol 3350 (Miralax) 17 Gm Powd.pack, 1 PACKET PO DAILY Y for CONSTIPATION, #30 PACKET 3 Refills 06/01/16 Ospemifene (Osphena) 60 Mg Tablet, 60 MG PO DAILY 07/05/15 Levothyroxine Sodium (Levothyroxine Sodium) 112 Mcg Tablet, 112 MCG PO ACB, TAB Once daily before breakfast. 07/05/15 Calcium Carbonate/Vitamin D3 (Calcium 600 + Vit D Caplet) 1 Each Tablet, PO DAILY 10/16/14 Pramipexole Di-HCl (Mirapex) 1 Mg Tablet, 1 MG DAILY 04/19/14 Divalproex Sodium (Divalproex Sodium) 500 Mg Tablet.dr, 500 MG PO DAILY, #90 11/23/13 Apixaban (Eliquis) 5 Mg Tablet, 5 MG PO BID, #180 11/23/13 Sertraline Hcl (Zoloft) 100 Mg Tablet, 100 MG PO DAILY, 0 Refills 09/27/09 Allergies: Coded Allergies: phenylbutazone (Verified Allergy, Mild, HIVES (BUTAZOLIDIN - MANU DISC), ) lansoprazole (Verified Adverse Reaction, Mild, DIARRHEA, 06/02/16) Assessment & Plan Assessment 06/30/2016-I reviewed this chart, the patient history, and the GARMENT FITTER's/PA's documented findings as above. We discussed and formulated the assessment and plan as above with the additions below.-Dr. Burroughs Patient was seen and examined independently in the CCU this afternoon. She states she is feeling progressively more fatigued over the past 2-3 days. She's developed shortness of breath with activities. She also has a fullness and tenderness in her abdomen. She has had no fevers, chills or sweats. She has had some occasional dysuria. She's not had any nausea or vomiting. She has normally brown colored stools but has had some red blood which she attributes to hemorrhoids. She is not able to give herself the suppositories to help with hemorrhoids has of shoulder pains. This morning her hemoglobin was 6.2. She chronically has anemia with hemoglobin in the 9.3 range. She had vitamin B-12 and folate levels checked here in May and they were normal. The patient also has history of unknown type of liver disease for which she sees Dr. Cade. She is on Xifaxan she is on prednisone chronically for knee pains and back pain. On exam she is alert and oriented 3 and in no acute distress. She has received 1 unit of blood. Currently heart rate is 60 and O2 sat is 94% on room air. HEENT reveals sclerae to be anicteric and oropharynx is moist. Neck is supple. Chest is clear to auscultation. Cardiovascular reveals a regular rate and rhythm. Abdomen is soft and mildly tender in the epigastrium. Abdomen is mildly distended. Bowel sounds are normoactive. Extremities are free of clubbing cyanosis or edema. Lab work was reviewed. Lactate was elevated at 2.5 this morning and on repeat is 1.6. Pro-calcitonin 0.05. TSH is elevated at 10.8. Impression Anemia chronic with acute worsening GI bleed with bright red blood likely from hemorrhoids which is chronic, cannot rule out an acute upper or lower GI bleed Abdominal pain Sepsis -with elevated lactate, improved UTI-start Rocephin History of liver disease-possible cirrhosis-continue rifaximin Paroxysmal A. fib for which she is on eliquis-this will be on hold for gi bleed. Continue amiodarone and atenolol CHF-EF 55% Chronic kidney disease Hypertension Chronic pain on chronic narcotics Chronic prednisone use Dementia Hypothyroidism Patient was admitted to CCU. With her chronic anemia we'll go ahead and give 2 units of blood today. PICC line is being placed for poor IV access. B-12 and folate were normal last month. We'll check iron studies. Dr. Winters has been consulted and plans for EGD tomorrow. We'll place the patient on proton pump inhibitor IV. Will obtain serial hemoglobin will stay 2 units ahead. Will continue usual steroids but keep in mind she may need stress dose steroids if she has any worsening. Regarding UTI with elevated lactate, Rocephin has been started and the patient was given IV fluids. Lactate has normalized. The patient will remain here in CCU for close monitoring overnight. DVT Prophylaxis: SCD'S DARRICK GLEASON APRN Jun 30, 2016 12:00 CONNIE BURROUGHS MD Jun 30, 2016 16:13
--- NOTE | 2016-06-30 12:57 | NUR ---
ADMISSION PT ADMITTED TO CCU BED 5 AT 1045 VIA CART FROM ED. REPORT RECEIVED. PT ORIENTED TO ROOM AND BED. PT IS A&OX3, UP WITH ONE ASSIST, GAIT BELT AND WALKER. PT REPORTS PAIN IN ABDOMEN, PT RECEIVED MS IN ED. PT DENIES N/V AND SOA BUT REPORTS THAT THE 2L O2 NC MAKES HER FEEL BETTER. PT TURNS SELF IN BED. ALARMS IN USE AND CALL LIGHT WITH IN REACH. ORDERS RECEIVED AND BLOOD TRANSFUSING AT THIS TIME.
--- NOTE | 2016-06-30 13:19 | CONSPD ---
Consultation Info Date DATE: 06/30/16 TIME: 13:12 Date of Consultation: Jun 30, 2016 Reason for Consultation: Anemia HPI - Adult Date DATE: 06/30/16 TIME: 13:12 General Chief Complaint: Weakness, Anemia, UTI Past Medical History Past Medical History Patient's Medical History: (1) HTN (hypertension) (2) GERD (gastroesophageal reflux disease) (3) CHF following non-cardiac surgery, postop (4) Acute blood loss anemia (5) Paroxysmal atrial fibrillation (6) Anticoagulated Permanent Comment: Lazaro Last Edited By: Katerina Hope on Jul 06, 2015 11: 03 (7) Right-sided congestive heart failure (8) Steroid long-term use (9) Depression (10) Osteoarthritis (11) Hypothyroidism (12) Invasive ductal carcinoma of breast, stage 2 Onset Date: ~ 2006 Surgical History Patient's Surgical History: Tonsillectomy, age 6. 2012 colonoscopy normal, NO diverticula - [place] 2015 colonoscopy normal in [facility] Colonoscopy, 1997, 2002, 2012. EGD and colonoscopy, 2001. Open cholecystectomy, 2001 Bilateral cataract extraction and lens implantation, 2000. Surgery for ankle spurs twice [facility]BSO with incidental appendectomy, 1983 Right Achilles tendon repair. Carpal tunnel release. Left knee replacement, 2004. Hemorrhoidectomy, 2005. Right corneal surgery. Posterior decompression and fusion at L4-L5, 2006. 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 L3-L4 decompression and extension of fusion to L2-L3, 2009 Septoplasty, 2011. Ileal band release of left hip, 2012. Permanent pacemaker placement, 2013. Bone marrow biopsy, 2013 L1-L2 Radical discectomy, L1-L2. Anterior lumbar interbody fusion, 2014 Back surgery, summer 2014 Current Medications Home Meds Active Scripts Omeprazole (Prilosec) 20 Mg Capsule, 20 MG PO ACBID, #0 CAP Prov:KURTIS FOOTE MD 07/09/15 Amiodarone HCl (Amiodarone HCl) 200 Mg Tablet, 200 MG PO DAILY for atrial fibrillation, #0 TAB Prov:KURTIS FOOTE MD 07/09/15 Hydrocodone/Acetaminophen ([place] 10-325 Tablet) 1 Each Tablet, 1 TAB PO Q6H Y for PRN ORDERS, #30 TAB Prov:KURTIS FOOTE MD 07/09/15 Reported Medications Melatonin (Melatonin) 3 Mg Tablet, 5-10 MG PO HS Y for NE, #30 TAB 2 Refills 06/30/16 Mirabegron (Myrbetriq) 25 Mg Tab.er.24h, 25 MG PO DAILY, TAB 06/30/16 Prednisone (Prednisone) 5 Mg Tablet, 7.5 MG PO WB, TAB Take 1 1/2 (5 mg) tablets, by mouth, one time a day with breakfast. 06/30/16 Atenolol (Atenolol) 50 Mg Tablet, 1 TAB PO DAILY, TAB 06/30/16 Acetaminophen (Tylenol) 325 Mg Tablet, 1-2 TAB PO PRN, #60 TAB 2 Refills 06/30/16 Bumetanide (Bumetanide) 0.5 Mg Tablet, 1 TAB PO BID, TAB 06/01/16 Donepezil HCl (Donepezil HCl) 5 Mg Tablet, 1 TAB PO HS, #30 TAB 5 Refills 06/01/16 Rifaximin (Xifaxan) 550 Mg Tablet, 550 MG PO BID, TAB 06/01/16 Potassium Chloride (Potassium Chloride) 10 Meq Capsule.er, 2 CAP PO BIDWM, CAP Take 1 capsule, by mouth, two times a day with meals 06/01/16 Polyethylene Glycol 3350 (Miralax) 17 Gm Powd.pack, 1 PACKET PO DAILY Y for CONSTIPATION, #30 PACKET 3 Refills 06/01/16 Ospemifene (Osphena) 60 Mg Tablet, 60 MG PO DAILY 07/05/15 Levothyroxine Sodium (Levothyroxine Sodium) 112 Mcg Tablet, 112 MCG PO ACB, TAB Once daily before breakfast. 07/05/15 Calcium Carbonate/Vitamin D3 (Calcium 600 + Vit D Caplet) 1 Each Tablet, PO DAILY 10/16/14 Pramipexole Di-HCl (Mirapex) 1 Mg Tablet, 1 MG DAILY 04/19/14 Divalproex Sodium (Divalproex Sodium) 500 Mg Tablet.dr, 500 MG PO DAILY, #90 11/23/13 Apixaban (Eliquis) 5 Mg Tablet, 5 MG PO BID, #180 11/23/13 Sertraline Hcl (Zoloft) 100 Mg Tablet, 100 MG PO DAILY, 0 Refills 09/27/09 Allergies: Coded Allergies: phenylbutazone (Verified Allergy, Mild, HIVES (BUTAZOLIDIN - MANU DISC), ) lansoprazole (Verified Adverse Reaction, Mild, DIARRHEA, 06/02/16) Family History Family History: Father age 87, CHF. Mother age 20, pancreatic cancer. Social History Smoking Status: Never smoker Substance Use Type: does not use Substance last used: prior to arrival Housing: assisted living facility ([place]) Advance Directives: Yes DPOA for Healthcare Only ([place]) GS Review of Systems General REPORTS chills Cardiovascular REPORTS palpitations, REPORTS other (on monitor is majority paced) Respiratory REPORTS difficulty breathing (with activity), DENIES use of oxygen Gastrointestional REPORTS blood in stools, REPORTS other (abdominal "tightness") Musculoskeletal REPORTS back pain, REPORTS joint pain Neurological REPORTS muscle weakness (uses a walker) Psychiatric REPORTS depression Endocrine REPORTS thyroid problems Hematologic REPORTS easy bruising, REPORTS use of blood thinners 10-point Review of Systems otherwise negative except HPI GS Physical Exam Vital Signs Date Time Temp Pulse Resp B/P Pulse Ox O2 Delivery O2 Flow Rate FiO2 06/30/16 12:00 60 19 120/58 100 Nasal Cannula 2.00 06/30/16 10:45 98.5 Height (Feet): 5 Height (Inches): 3.00 Weight (Kilograms): 96.300 BMI 37.6 Laboratory Laboratory Tests 06/30/16 07:37 Laboratory Tests 06/30/16 07:37 THANG DAVE APRN Jun 30, 2016 13:15
[2016-06-30] MEDS: PANTOPRAZOLE 40mg INJECTION IV SCH ×2 (14:07→21:27)
[2016-06-30] MEDS: NORMAL SALINE 1,000 ML IV SCH (14:07)
[2016-06-30] MEDS ORDERED: ACETAMINOPHEN 325 MG TABLET PO SCH (15:45)
[2016-06-30] MEDS: MORPHINE SULFATE 2 MG SYRINGE IV PRN ×3 (15:50→22:00)
--- NOTE | 2016-06-30 16:29 | DI ---
Indication: ITS.REASON: post picc insertion PROCEDURE: CHEST POST PROCEDURE 1 VIEW: Encounter: Initial Comparison: June 30, 2016 at 0750 Findings: New right PICC line in place with the tip projecting over the expected cavoatrial junction. Left cardiac pacemaker. Monitoring leads. Mild pulmonary vascular congestion is seen with trace right pleural fluid. No pneumothorax. No gross new consolidation. Heart size and mediastinal contours are stable. Impression: New right PICC line tip projects over the expected cavoatrial junction. .
--- NOTE | 2016-06-30 17:30 | NUR ---
PAIN/PICC LINE PT REPORTS PAIN IN BACK, PRN MORPHINE GIVEN. PICC LINE PLACED FOR ADEQUATE VEINOUS ACCESS. PT REPORTS PAIN IN SHOULDER, PRN MORPHINE GIVEN AGAIN.
[2016-06-30] MEDS: PredniSONE 5 MG TABLET PO SCH (18:02)
--- NOTE | 2016-06-30 18:04 | CONSF ---
DATE OF CONSULTATION 06/30/2016 FINDINGS Mrs. Liu is a 80-year-old female whom I was asked to see today in consultation/as a new patient as a result of her finding of marked anemia upon laboratory evaluation. Mrs. Liu is known to my surgical practice. I have taken care of her on and off over the course of the last 18-19 years. Mrs. Liu informs me that over the last week or so she has felt the "life draining out of her body." Patient states that she has progressively become more weak and fatigue. Patient currently resides in a nearby halfway facility. Patient informs me that this weekend that she did "not leave her room at all." Patient states that she was weak enough that she did not feel that she wanted to participate in any type of outside activities. Upon questioning the patient in regards to her bowel habits she informs me that recently she has noted increasing stool frequency/component of diarrhea. She has a longstanding history for internal hemorrhoids that have been intermittently bleeding. Patient states that she will notice at times some blood within the stool water as well as upon the toilet paper. She denies, however, any history for avtar melena nor hematochezia. The patient denies any recent onset of abdominal pain or discomfort. The patient has had a fair amount of stress in her life recently with the of her a few years ago, her inability to live independently resulting in a move to the halfway and recently they are in the process of selling her home. She also has a son whom she has not spoken with for quite some time. PAST MEDICAL HISTORY, PAST SURGICAL HISTORY, MEDICATIONS, ALLERGIES, SOCIAL HISTORY, FAMILY HISTORY, REVIEW OF SYSTEMS Performed by my nurse practitioner, Skyler Gillespie APRN . PHYSICAL EXAM GENERAL: Mrs. Liu is a 80-year-old female who did not appear to be in any acute distress. VITAL SIGNS: Temperature 98.5, pulse 60, respirations 19, blood pressure 120/58, SAO2 100% on 2 L/nasal cannula. HEENT: Normocephalic. PERRLA. NECK: Supple without lymphadenopathy. CHEST: Clear to auscultation bilaterally. HEART: Rate and rhythm, normal S1 and S2 without gallops, murmurs or clicks. ABDOMEN: Soft, nontender. No evidence for hepatomegaly or other abnormal masses. EXTREMITIES: Without clubbing, cyanosis, edema. NEUROLOGIC: Cranial nerves II-XII grossly intact. Patient without focal motor or sensory deficits. LABORATORY/RADIOGRAPHIC EVALUATION The patient did have a CBC upon admission and her hemoglobin was found be quite low at 6.2. She was in the process of undergoing a blood transfusion during the interview process. CMP was obtained. Her ProBNP was elevated at 2340. Plasma lactate was elevated at 2.5. TSH level was elevated at 10.8. The patient had an INR and PTT upon admission that was normal. D-dimer was elevated at 870. UA was obtained and found be grossly positive for probable UTI. Urine culture has been obtained and results are pending at time of dictation. ASSESSMENT 80-year-old female with presentation of probable urosepsis who is found to be quite anemic upon laboratory evaluation. PLAN I do see that her last colonoscopy that I had performed was about four years ago in 2012. Her last colonoscopy was within normal limits. Patient informs me that perhaps a year or two ago she did undergo a colonoscopy when she was hospitalized in [place]. Upon reviewing her prior hemoglobins it does appear that she has had some mild anemia in the past but not to this extent. The patient does have a history for atrial fibrillation and is on Eliquis. Her last dose apparently was yesterday afternoon. I informed the patient that at this point time I would recommend that we treat her empirically as if she has possible peptic ulcer disease. Patient currently is on Protonix 40 mg IV b.i.d. I agree with transfusion of this patient. I do believe that given her marked anemia we should go ahead and proceed with endoscopic evaluation. It is my recommendation that tomorrow we go ahead and proceed with esophagogastroduodenoscopy. If no marked abnormalities are noted upon her EGD one may wish also to proceed with colonoscopy for further evaluation. I did go ahead this evening and discussed with the patient what an EGD entailed and its associated risks which included but was not inclusive of bleeding and/or perforation. The patient understood and agreed with the proposed plan at this time. [facility]
--- NOTE | 2016-06-30 18:13 | NUR ---
SHIFT PT HAS BEEN PLEASANT AND COOPERATIVE ALL SHIFT. PT IS A&OX3, UP WITH ONE ASSIST, GAIT BELT AND WALKER. PT HAS REPORTED PAIN IN BACK AND ABDOMEN, PRN PAIN MEDS GIVEN, SEE PREVIOUS NOTE. PT HAS BEEN UP TO TOILET FOR VOIDS AND HAS BEEN TURNING SELF IN BED. PT EATS 100% OF CLEAR LIQUIDS AND WILL BE NPO AT MIDNIGHT FOR TOMORROWS PROCEDURE. PT IS ON 2L O2 NC FOR ANEMIC PURPOSES. PT DENIES N/V. SECOND UNIT OF PRBC INFUSING AT THIS TIME. NO OTHER CHANGES SINCE PREVIOUS NOTE. ALARMS IN USE AND CALL LIGHT WITH IN REACH.
[2016-06-30 20:35] LABS: HGB - HEMOGLOBIN 8.3 GM/DL (12-16)
[2016-06-30] MEDS: DONEPEZIL 5 MG TABLET PO SCH (21:27)
[2016-06-30] MEDS: RIFAXIMIN 550 MG TABLET PO SCH (21:27)
[2016-06-30] MEDS: MELATONIN 5 MG TABLET PO SCH (22:00)
[2016-06-30 22:21] LABS: HGB - HEMOGLOBIN 8.1 GM/DL (12-16)
[2016-07-01] VITALS (39 sets, daily range): BP systolic 102–146; BP diastolic 50–100; PULSE 60–79; RESP 16–33; TEMP 97.6–98.8; O2SAT 90–100
[2016-07-01] MEDS: MORPHINE SULFATE 2 MG SYRINGE IV PRN ×4 (02:18→10:32)
[2016-07-01] MEDS: NORMAL SALINE 1,000 ML IV SCH (03:40)
[2016-07-01 05:26] LABS: BASOPHILS % (AUTO) 0.2 % (0-2); EOSINOPHILS % (AUTO) 0.8 % (0-4); HGB - HEMOGLOBIN 7.6 GM/DL (12-16); IMMATURE GRANULOCYTE # (AUTO) 0.02 T/MM3 (0.00-0.03); IMMATURE GRANULOCYTE % (AUTO) 0.4 % (0.0-0.5); LYMPHOCYTES # (AUTO) 1.1 T/MM3 (1-4.8); LYMPHOCYTES % (AUTO) 22.1 % (23-45); MEAN CORPUSCULAR HGB 26.4 UUG (26-34); MEAN CORPUSCULAR HGB CONC(MCHC 29.2 GM/DL (31-37); MEAN CORPUSCULAR VOLUME 90.3 UM3 (80-100); MEAN PLATELET VOLUME 11.1 UM3 (9.4-12.4); MONOCYTES # (AUTO) 0.5 T/MM3 (0-0.8); MONOCYTES % (AUTO) 9.5 % (0-9.0); NEUTROPHILS #(AUTO)-ABSOLUTE 3.3 T/MM3 (1.8-7.7); RED BLOOD COUNT 2.88 M/MM3 (4.00-5.20); WBC - WHITE BLOOD COUNT 4.9 T/MM3 (4.5-11.0)
[2016-07-01 05:52] LABS: ANION GAP 9 MEQ/L (5-15); BUN/CREATININE RATIO 21 RATIO (6-26); CALCIUM 8.6 MG/DL (8.4-10.2); CHLORIDE 108 MEQ/L (98-107); CO2 - CARBON DIOXIDE 27 MEQ/L (22-30); CREATININE 1.1 MG/DL (0.7-1.2); GLOMERULAR FILTRATION RATE 48; GLUCOSE 120 MG/DL (65-110); POTASSIUM 5.1 MEQ/L (3.6-5); SODIUM 144 MEQ/L (134-144)
[2016-07-01] MEDS: LEVOTHYROXINE 112 MCG TABLET PO SCH (06:23)
--- NOTE | 2016-07-01 06:27 | NUR ---
Shift Summary Pt slept off and on during the night. Awakes easily for cares. A&Ox3 and appropriate. Up to BSC a few times with assist x1-2, gait belt, walker. Shuffling gait. Pt c/o back pain. PRN Morphine administered. NPO at midnight for procedure today. See labs for hgb.
--- NOTE | 2016-07-01 07:25 | ANESPREOP ---
Anesthesia Record Date and Time DATE: 07/01/16 TIME: 07:23 Pre-Op Diagnosis Anemia Proposed Surgical Procedure EGD NPO since: [place] Allergies: Coded Allergies: phenylbutazone (Verified Allergy, Mild, HIVES (BUTAZOLIDIN - MANU DISC), ) lansoprazole (Verified Adverse Reaction, Mild, DIARRHEA, 06/02/16) Ht/Wt/BMI Height: 5 ' 3.00 " Weight: 96.300 kg BMI: 37.6 kg/m2 Vital Signs Date Time Temp Pulse Resp B/P Pulse Ox O2 Delivery O2 Flow Rate FiO2 07/01/16 05:23 20 07/01/16 04:30 67 126/57 100 Nasal Cannula 2.00 07/01/16 00:10 98.4 Medications Inpatient Medications Current Medications Medications (Trade) Dose Ordered Sig/Kip Start Time Stop Time Status Last Admin Dose Admin Sodium Chloride (Normal Saline IV) 1,000 ml @ 100 mls/hr Q10H 06/30/16 14:00 07/01/16 03:40 100 MLS/HR Pantoprazole Sodium 40 mg 40 mg BID 06/30/16 14:00 06/30/16 21:27 40 MG Ceftriaxone Sodium/Sodium Chloride (Rocephin/NS) 100 ml @ 200 mls/hr DAILY 07/01/16 09:00 Morphine Sulfate (Morphine) 2-4 mg iv q2 hours as needed Q2H PRN 06/30/16 15:45 07/01/16 04:19 2 MG Acetaminophen (Tylenol Regular Strength) as directed PRN 06/30/16 15:45 Amiodarone HCl (Pacerone) 200 mg DAILY 07/01/16 09:00 Atenolol (TENORMIN 50 mg) 50 mg DAILY 07/01/16 09:00 Divalproex Sodium (Depakote) 500 mg DAILY 07/01/16 09:00 Donepezil HCl (Aricept) 5 mg HS 06/30/16 22:00 06/30/16 21:27 5 MG Acetaminophen/ Hydrocodone Bitart (Hamilton 10/325) 1 tab Q6H PRN 06/30/16 15:45 Levothyroxine Sodium (Synthroid) 112 mcg ACB 07/01/16 06:30 Mirabegron (Myrbetriq) 25 mg DAILY 07/01/16 09:00 Pramipexole Dihydrochloride (Mirapex) 1 mg DAILY 07/01/16 09:00 Prednisone (PredniSONE) 7.5 mg WB 06/30/16 15:45 06/30/16 18:02 7.5 MG Rifaximin (Xifaxan) 550 mg BID 06/30/16 21:00 06/30/16 21:27 550 MG Sertraline HCl (Zoloft) 100 mg DAILY 07/01/16 09:00 Melatonin 5-10MG HS 06/30/16 22:00 Sodium Chloride (NS) 500 ml @ 0 mls/hr Q0M 06/30/16 16:16 Acetaminophen (Tylenol) 325 Mg Tablet, 1-2 TAB PO PRN, (Reported) Last Taken: on 06/22/16 0626 Amiodarone HCl (Amiodarone HCl) 200 Mg Tablet, 200 MG PO DAILY Last Taken: on 06/29/16 0853 Apixaban (Eliquis) 5 Mg Tablet, 5 MG PO BID, ( Reported) Last Taken: on 06/29/16 1635 Atenolol (Atenolol) 50 Mg Tablet, 1 TAB PO DAILY , (Reported) Last Taken: on 06/29/16 0853 Bumetanide (Bumetanide) 0.5 Mg Tablet, 1 TAB PO BID, (Reported) Last Taken: on 06/29/16 1235 Calcium Carbonate/Vitamin D3 (Calcium 600 + Vit D Caplet) 1 Each Tablet, PO DAILY, (Reported) Last Taken: on 06/29/16 0853 Divalproex Sodium (Divalproex Sodium) 500 Mg Tablet.dr, 500 MG PO DAILY, (Reported) Last Taken: on 06/29/16 0854 Donepezil HCl (Donepezil HCl) 5 Mg Tablet, 1 TAB PO HS, (Reported) Last Taken: on 06/29/16 1808 Hydrocodone/Acetaminophen (Hamilton 10-325 Tablet) 1 Each Tablet, 1 TAB PO Q6H PRN for PRN ORDERS Last Taken: on 06/30/16 0232 Levothyroxine Sodium (Levothyroxine Sodium) 112 Mcg Tablet, 112 MCG PO ACB, (Reported) Once daily before breakfast. Last Taken: on 06/30/16 0620 Melatonin (Melatonin) 3 Mg Tablet, 5-10 MG PO HS PRN for ND, (Reported) Last Taken: on 06/29/162003 Mirabegron (Myrbetriq) 25 Mg Tab.er.24h, 25 MG PO DAILY, (Reported) Last Taken: on 06/29/16853 Omeprazole (Prilosec) 20 Mg Capsule, 20 MG PO ACBID Last Taken: on 06/29/16 06 Ospemifene (Osphena) 60 Mg Tablet, 60 MG PO DAILY, (Reported) Last Taken: on 06/29/16853 Polyethylene Glycol 3350 (Miralax) 17 Gm Powd.pack, 1 PACKET PO DAILY PRN for CONSTIPATION, (Reported) Last Taken: on Unknown Date & Time Potassium Chloride (Potassium Chloride) 10 Meq Capsule.er, 2 CAP PO BIDWM, (Reported) Take 1 capsule, by mouth, two times a day with meals Last Taken: on 06/29/161808 Pramipexole Di-HCl (Mirapex) 1 Mg Tablet, 1 MG DAILY, (Reported) Last Taken: on 06/29/161808 Prednisone (Prednisone) 5 Mg Tablet, 7.5 MG PO WB, (Reported) Take 1 1/2 (5 mg) tablets, by mouth, one time a day with breakfast. Last Taken: on 06/29/16853 Rifaximin (Xifaxan) 550 Mg Tablet, 550 MG PO BID , (Reported) Last Taken: on 06/29/16 163 Sertraline Hcl (Zoloft) 100 Mg Tablet, 100 MG PO DAILY, (Reported) Last Taken: on 06/29/16 08 Currently on Beta Jaylene: Yes Beta Jaylene Last Taken: Atenolol Medical/Surgical History Anesthesia PMH: Reports: *Hypertension, Arthritis (GENERALIZED), CHF, Cancer ( breast cancer), Headaches (MIGRAINES), Obesity, Pacemaker, Reflux, Renal Disease , Thyroid Disease, Denies: *Angina, *Diabetes, *Dyspnea, *ID, Anesthesia Reactions (ASPIRATED X1 AFTER OPEN CHRISS), Asthma, Blood Transfusion Reac, COPD , CVA/Stroke/TIA, Clotting Problems, Deep Vein Thrombosis, Glaucoma, Hepatitis, Hiatal Hernia, Malignant Hyperthermia, Pneumonia, Rheumatic Fever, Seizures, Sleep Apnea, Tuberculosis Smoking Status: Never smoker Has pt. smoked today?: No Use Chewing Tobacco?: No Second Hand Exposure: No Substance Use Type: does not use Substance last used: prior to arrival Past Surgical History Orthopedic Surgeries: Yes - 2008 L TOTAL KNEE, 4 BACK SURGERIES, multiple screws and rods Abdominal Surgeries: Yes - CHOLECYSTECTOMY Genitourinary Surgeries: Yes - HYSTERECTOMY Cardiac Surgeries: No Endocrine Surgeries: No Reproductive Surgeries: No Neurological Surgeries: No Ear Surgeries: No Nose Surgeries: No Throat Surgeries: Yes - T&A Other Surgeries: Yes - Breast cancer biopsy; LEFT LUMPECTOMY Anesthesia Adverse Reactions: FOUND none Family Hx of Anesthesia Advers: none Hx of Motion Sickness: No Pertinent Findings Laboratory Tests 07/01/16 05:10 Test 06/30/16 07:28 Activated Partial Thromboplast Time 31.1SEC (24-36) Prothromb Time International Ratio 1.53 (0.76-1.04) EKG Rhythm: Paced Physical Exam Respiratory: Bilat breath sounds equal, Lungs clear Cardiovascular: FOUND Regular rate, rhythm, FOUND No murmur Airway Assessment Mallampati Score: II TMD: 3 Fingerbreadths Neck Extension: Good Teeth: Upper Dentures, Lower Dentures ASA: 3 Plan Anesthesia Plan: TIVA Discussion Discussed risks/options/alternatives of anesthesia and questions answered. Patient consents. Nursing pain assessment noted. Attestation Statement Prior to the delivery of any anesthetic medication, I examined the patient, developed the plan, obtained the patient's consent and discussed the risk and benefits of the procedure with the patient/guardian. DANIELA LUCIO CRNA Jul 01, 2016 07:24
[2016-07-01] MEDS ORDERED: ALFENTANIL 500mcg/ml - 2ml INJECTION ONE (07:38)
[2016-07-01] MEDS ORDERED: LIDOCAINE (2%) 100 MG/5 ML PF SYRINGE IV ONE (07:38)
[2016-07-01] MEDS ORDERED: PROPOFOL 200mg 20 ML IV ONE (07:38)
[2016-07-01] MEDS ORDERED: LIDOCAINE VISCOUS 2% Oral Soln 15ml UD ONE (07:40)
--- NOTE | 2016-07-01 07:55 | GSPOSTPN ---
Endoscopy Procedure Procedure Date: Jul 01, 2016 Surgeon: Vianey Anesthesia: TIVA ASA: 3 Procedure: EGD-polypectomy w/forceps Diagnosis Preop Diagnosis ANEMIA Postop EGD Diagnosis Postop EGD Diagnosis: FOUND Other (PRE-PYLORIC POLYP) Complications Complications Estimated Blood Loss See Anesthesia Record. Vital Signs See Anesthesia and PACU record. THANG DAVE TRAUMA COUNSELLOR Jul 01, 2016 07:49
--- NOTE | 2016-07-01 08:39 | ANESPO ---
Post-Op Note Date 07/01/16 Time: 08:38 Status Pt Participated in Evaluation: Pt participated in person Vital Signs Date Time Temp Pulse Resp B/P Pulse Ox O2 Delivery O2 Flow Rate FiO2 07/01/16 08:29 60 27 100 Nasal Cannula 2.00 07/01/16 08:26 126/58 07/01/16 08:00 98.8 Respiratory Function: Airway patent, Regular respirations Cardiovascular Function: Regular pulse Telemetry Pattern: SR Mental Status: Alert/oriented Pain Level Intensity: 3 Hydration: Taking po fluids Complications during Recovery None apparent Follow-Up Instructions Instructions Per Surgeon DANIELA LUCIO CRNA Jul 01, 2016 08:38
[2016-07-01] MEDS: CEFTRIAXONE 1 G in NORMAL SALINE 100 ML IV SCH (09:33)
[2016-07-01] MEDS: MIRABEGRON 25 MG TABLET PO SCH (09:34)
[2016-07-01] MEDS: PRAMIPEXOLE 1 MG TABLET PO SCH (09:34)
[2016-07-01] MEDS: DIVALPROEX 500 MG TABLET PO SCH (09:34)
[2016-07-01] MEDS: PANTOPRAZOLE 40mg INJECTION IV SCH (09:34)
[2016-07-01] MEDS: PredniSONE 5 MG TABLET PO SCH (09:35)
[2016-07-01] MEDS: ATENOLOL 50 MG TABLET PO SCH (09:35)
[2016-07-01] MEDS: SERTRALINE 100 MG TABLET PO SCH (09:36)
[2016-07-01] MEDS: AMIODARONE 200 MG TABLET PO SCH (09:36)
[2016-07-01] MEDS: RIFAXIMIN 550 MG TABLET PO SCH ×2 (09:36→23:40)
--- NOTE | 2016-07-01 10:04 | PNPDOC ---
Subjective Date DATE: 07/01/16 TIME: 09:49 Subjective The patient states that she's feeling okay. She underwent EGD earlier this morning. She complains of pain in her right arm where she has a PICC line. There is no significant edema. There is some bruising around the PICC site. She denies any shortness of breath. She is not chronically on oxygen but is currently on 2 L with saturation of 100%. She has had no stools since admission. She did receive 2 units of blood yesterday. She has chronic incontinence of urine. Objective Vital Signs Vital signs Vital Signs Date Time Temp Pulse Resp B/P Pulse Ox O2 Delivery O2 Flow Rate FiO2 07/01/16 08:29 60 27 100 Nasal Cannula 2.00 07/01/16 08:26 126/58 07/01/16 08:00 98.8 GEN-alert, oriented, no acute distress HEENT-sclera anicteric, oropharynx is moist NECK-supple CV-regular rate and rhythm CHEST-clear to auscultation bilaterally ABD-abdomen is somewhat firm, positive bowel sounds, no significant tenderness, -no Pfeiffer EXT-+1 lower extremity edema bilaterally, SCDs are on NEURO-no focal deficits SKIN-warm and dry and without rashes Height (Feet): 5 Height (Inches): 3.00 Weight (Kilograms): 99.200 Laboratory Laboratory Laboratory Tests 06/30/16 07:37 07/01/16 05:10 Laboratory Tests 06/30/16 07:37 06/30/16 20:12 06/30/16 22:10 07/01/16 05:10 Microbiology Microbiology Microbiology Date/Time Source Procedure Growth Status 06/30/16 07:37 Peripheral/Iv Start Blood Culture - Preliminary NO GROWTH AFTER 24 HOURS Resulted 06/30/16 07:31 Peripheral/Iv Start Blood Culture - Preliminary NO GROWTH AFTER 24 HOURS Resulted 06/30/16 09:52 Urine, Voided-Not Cc-Midstream Urine Culture - Preliminary Gram Negative Mahin Resulted Assessment & Plan Problems: (1) Sepsis Status: Acute Assessment & Plan: Magnifications of sepsis include the following- 1. UTI 2. Elevated Lactate- 2.5 3. Tachypneic 28/min (2) Anemia Status: Acute (3) Thrombocythemia Status: Chronic Assessment & Plan: Likely chronic (4) UTI (lower urinary tract infection) Status: Acute Assessment & Plan: Acute (5) HTN (hypertension) Status: Chronic (6) GERD (gastroesophageal reflux disease) Status: Chronic (7) Hypothyroidism Status: Chronic (8) Depression Status: Chronic (9) Osteoarthritis Status: Chronic (10) CHF following non-cardiac surgery, postop Status: Chronic (11) Anticoagulated Status: Chronic (12) Cirrhosis Status: Chronic (13) Paroxysmal atrial fibrillation Status: Chronic (14) CKD (chronic kidney disease), stage III Status: Chronic (15) Chronic back pain Status: Chronic (16) Invasive ductal carcinoma of breast, stage 2 Onset Date: ~ 2006 Status: Chronic Assessment Impression Anemia or acute on chronic-improved post transfusion of 2 units of blood yesterday GI bleed with bright red blood likely from hemorrhoids which is chronic, await results of EGD Abdominal pain Sepsis -with elevated lactate, improved UTI-start Rocephin-GNR in urine History of liver disease-possible cirrhosis-continue rifaximin Paroxysmal A. fib for which she is on eliquis-this will be on hold for gi bleed. Continue amiodarone and atenolol CHF-EF 55% Chronic kidney disease Hypertension Chronic pain on chronic narcotics Chronic prednisone use Dementia Hypothyroidism Mild hyperkalemia-should improve with Bumex Continue serial hemoglobins. Restart Bumex. DC IV fluids. Discuss with Dr. Winters later today regarding EGD results and whether or not colonoscopy is needed. Patient states she underwent a colonoscopy in the summer of 2015 at the [facility] and we will try to obtain results. Creatinine has improved from yesterday with IV fluids. PT and OT eval. Continue to hold anticoagulation. SCDs for DVT prophylaxis. DVT Prophylaxis: SCD'S Code Status Do Not Resuscitate Hospital Course Summary Disclaimer The hospital course summary below is not to be considered part of the above Progress Note. Hospital Course Summary 06/30 Admit patient to inpatient status under the care of Dr Burroughs for Sepsis with UTI and Anemia Patient started on Rocephin 1 mg IV while in the ER. Will continue with daily dosing. Urine and blood cultures pending. Follow serial lactate levels as per sepsis protocol. Patient is type, screen and crossmatched for 1 unit of packed red blood cells transfusion given anemia. Patient is chronically on Eliquis for chronic atrial fibrillation. She denies having black stools and attributes some red stools to Hemorrhoids Surgical consultation by Dr. Winters In light of anemia. Patient may have clear liquid diet now. Will follow platelet count as patient does have thrombocytopenia, however, this appears to be chronic. She does see Dr. Zuniga for chronic anemia since her breast cancer in 2008. Plt count in in 80-90's. Will obviously need to hold all anticoagulation given anemia with probably Gi bleeding. CHADS2 score 5.9% (moderate risk) SCDs to bilateral lower ext for DVT prophylaxis Will need to discuss and review all home medications with attending, Dr Burroughs. Recheck CBC and a BMP tomorrow morning to follow blood counts, renal function, electro-lites. At time of discharge medical care will return to primary care provider, Dr. Taveras 06/30/2016-I reviewed this chart, the patient history, and the SAFETY ADMINISTRATOR's/PA's documented findings as above. We discussed and formulated the assessment and plan as above with the additions below.-Dr. Burroughs Patient was seen and examined independently in the CCU this afternoon. She states she is feeling progressively more fatigued over the past 2-3 days. She's developed shortness of breath with activities. She also has a fullness and tenderness in her abdomen. She has had no fevers, chills or sweats. She has had some occasional dysuria. She's not had any nausea or vomiting. She has normally brown colored stools but has had some red blood which she attributes to hemorrhoids. She is not able to give herself the suppositories to help with hemorrhoids has of shoulder pains. This morning her hemoglobin was 6.2. She chronically has anemia with hemoglobin in the 9.3 range. She had vitamin B-12 and folate levels checked here in May and they were normal. The patient also has history of unknown type of liver disease for which she sees Dr. Cade. She is on Xifaxan she is on prednisone chronically for knee pains and back pain. On exam she is alert and oriented 3 and in no acute distress. She has received 1 unit of blood. Currently heart rate is 60 and O2 sat is 94% on room air. HEENT reveals sclerae to be anicteric and oropharynx is moist. Neck is supple. Chest is clear to auscultation. Cardiovascular reveals a regular rate and rhythm. Abdomen is soft and mildly tender in the epigastrium. Abdomen is mildly distended. Bowel sounds are normoactive. Extremities are free of clubbing cyanosis or edema. Lab work was reviewed. Lactate was elevated at 2.5 this morning and on repeat is 1.6. Pro-calcitonin 0.05. TSH is elevated at 10.8. Impression Anemia chronic with acute worsening GI bleed with bright red blood likely from hemorrhoids which is chronic, cannot rule out an acute upper or lower GI bleed Abdominal pain Sepsis -with elevated lactate, improved UTI-start Rocephin History of liver disease-possible cirrhosis-continue rifaximin Paroxysmal A. fib for which she is on eliquis-this will be on hold for gi bleed. Continue amiodarone and atenolol CHF-EF 55% Chronic kidney disease Hypertension Chronic pain on chronic narcotics Chronic prednisone use Dementia Hypothyroidism Patient was admitted to CCU. With her chronic anemia we'll go ahead and give 2 units of blood today. PICC line is being placed for poor IV access. B-12 and folate were normal last month. We'll check iron studies. Dr. Winters has been consulted and plans for EGD tomorrow. We'll place the patient on proton pump inhibitor IV. Will obtain serial hemoglobin will stay 2 units ahead. Will continue usual steroids but keep in mind she may need stress dose steroids if she has any worsening. Regarding UTI with elevated lactate, Rocephin has been started and the patient was given IV fluids. Lactate has normalized. The patient will remain here in CCU for close monitoring overnight. CONNIE BURROUGHS MD Jul 01, 2016 09:53
[2016-07-01 10:18] LABS: HGB - HEMOGLOBIN 7.9 GM/DL (12-16)
--- NOTE | 2016-07-01 10:50 | NUR ---
LAB/Hgb CHANGED Hgb LABS FROM TIMED Hgb POST TRANSFUSION TO TIMED Hgb PER LAB REQUEST.
--- NOTE | 2016-07-01 11:45 | NUR ---
CURTIS THIS WORKER MET WITH PT ON THIS DATE. PT LAYING IN BED. THIS WORKER INTRODUCED SELF AND ROLE OF CASE MANAGEMENT. PT REPORTED THAT SHE LIVES IN ASSISTED LIVING AT [facility]. PT REPORTED PLANS TO RETURN THERE AT TIME OF DISCHARGE. PT GAVE CONSENT FOR THIS WORKER TO CONTACT [facility] TO PROVIDE HER WITH AN UPDATE. PT DENIED NEEDS AT THIS TIME FROM CASE MANAGEMENT. PT REPORTED THAT SHE HAS BEEN AT [facility] OVER THE LAST FEW MONTHS. CASE MANAGEMENT WILL CONTINUE TO FOLLOW AND ASSIST IN DISCHARGE PLANNING. THIS WORKER PROVIDED UPDATE TO JENNYFER ([facility]) ON THIS DATE.
[2016-07-01] MEDS: BUMETANIDE 0.5 MG TABLET PO SCH ×2 (12:06→16:13)
--- NOTE | 2016-07-01 13:25 | OPNOTEF ---
DATE OF SERVICE 07/01/2016 SURGEON Mino Winters MD PREOPERATIVE DIAGNOSIS Anemia of uncertain etiology. POSTOPERATIVE DIAGNOSIS Anemia of uncertain etiology, gastric polyp-like structures noted within prepyloric region. No endoscopic evidence for upper GI bleed. PROCEDURE Esophagogastroduodenoscopy with polypectomies via cold biopsy technique. ANESTHESIA TIVA BRIEF HISTORY/INDICATIONS Mrs. Liu is a 80-year-old female who is well known to my surgical practice. She recently presented with increasing weakness and fatigue and was found be quite anemic with a hemoglobin of around 6. To further evaluate the underlying etiology for her anemia, it was recommended that she undergo an EGD and possible colonoscopy if no abnormality was noted upon upper endoscopy. For completeness please refer to notes included in the patient's chart. FINDINGS Upon upper endoscopy, the esophagus, stomach and duodenum were found to be essentially within normal limits. There was no evidence for old blood upon the mucosa. No ulcerations were noted. The patient was found to have some small polyps within the corpus of the stomach as well as within the prepyloric region. Several of these polyps were grasped and removed in their entirety via cold biopsy technique. Some of the slightly larger polyps were biopsied but not completely removed in their entirety. There was no evidence for active or previous bleeding noted within the esophagus, stomach or duodenum. DESCRIPTION OF PROCEDURE After informed consent was obtained, the patient was brought to the endoscopy suite and placed on the table in left lateral decubitus position. The patient subsequently underwent total intravenous anesthesia by the nurse core sticker per my request. Formal time-out was then completed. Next, an Olympus gastroscope was inserted in the oral hypopharynx and subsequently the esophagus under direct visualization. Gastroscope was advanced through the esophagus, stomach, pylorus, duodenal bulb, into second portion of duodenum. The scope was slowly withdrawn. First and second portions of the duodenum were within normal limits. No evidence of duodenitis or ulcerations was noted. Scope was withdrawn back to prepyloric region and antrum. Several polyp-like structures were noted within the prepyloric region. These ranged on the order of about 5 mm up to perhaps 8-9 mm in diameter. The smaller polyp-like structures were grasped and removed in their entirety via cold biopsy technique. Some of the slightly larger polyp-like structures were grasped and biopsied via cold biopsy technique. J-maneuver was then performed. Cardia and fundus were within normal limits. The scope was allowed to straighten and slowly withdrawn. Within the corpus of the stomach the patient was also found have a couple of additional/synchronous smaller polyps that were on the order of about 5-6 mm in diameter. These polyps were also grasped and removed in their entirety via cold biopsy technique. Scope was then withdrawn back to the level of the diaphragm. Squamocolumnar junction was located at the level of the diaphragm and was well demarcated with no endoscopic evidence for Warren's metaplasia or distal esophagitis. Scope was then slowly withdrawn and the remaining esophageal mucosa found within normal limits. The patient tolerated the procedure without difficulty and was sent back to the preop area in stable condition. Will await the biopsy results from today's EGD and proceed accordingly with further recommendations thereafter. [facility]
[2016-07-01] MEDS ORDERED: BISACODYL 5 MG E.C. TABLET PO ONE (15:15)
[2016-07-01] MEDS ORDERED: POLYETHYL.GLYCOL 3350 BOTTLE 238 GM PO ONE (15:30)
--- NOTE | 2016-07-01 15:32 | PNSURG ---
Subjective DATE: 07/01/16 TIME: 15:29 Interval History I visited with Bhavna by phone this afternoon, while she was reluctant at first, she did agree to bowel prep today and colonoscopy. Scope by Dr. Cade was not optimal due to inadequate prep. Bhavna indicates she usually gets nauseated with bowel prep, we agreed to start Zofran before she started the prep. We would like her to stay in CCU for night for closer observation during prep. Repeat labs in am. Colonoscopy scheduled for 7:30 am tomorrow. Objective Vital Signs Date Time Temp Pulse Resp B/P Pulse Ox O2 Delivery O2 Flow Rate FiO2 07/01/16 12:00 97.6 60 25 119/56 98 Room Air 07/01/16 10:15 1.00 Height (Feet): 5 Height (Inches): 3.00 Weight (Kilograms): 99.200 BMI 37.6 Laboratory Laboratory Tests 06/30/16 07:37 07/01/16 05:10 Laboratory Tests 06/30/16 07:37 06/30/16 20:12 06/30/16 22:10 07/01/16 05:10 07/01/16 10:08 Procedure Procedure Date: Jul 01, 2016 Surgeon: Vianey NAM Assessment & Plan Code Status Do Not Resuscitate Hospital Course Summary Disclaimer The visit summary below is not to be considered part of the above Progress Note. Hospital Course Summary 06/30 Admit patient to inpatient status under the care of Dr Burroughs for Sepsis with UTI and Anemia Patient started on Rocephin 1 mg IV while in the ER. Will continue with daily dosing. Urine and blood cultures pending. Follow serial lactate levels as per sepsis protocol. Patient is type, screen and crossmatched for 1 unit of packed red blood cells transfusion given anemia. Patient is chronically on Eliquis for chronic atrial fibrillation. She denies having black stools and attributes some red stools to Hemorrhoids Surgical consultation by Dr. Winters In light of anemia. Patient may have clear liquid diet now. Will follow platelet count as patient does have thrombocytopenia, however, this appears to be chronic. She does see Dr. Zuniga for chronic anemia since her breast cancer in 2008. Plt count in in 80-90's. Will obviously need to hold all anticoagulation given anemia with probably Gi bleeding. CHADS2 score 5.9% (moderate risk) SCDs to bilateral lower ext for DVT prophylaxis Will need to discuss and review all home medications with attending, Dr Burroughs. Recheck CBC and a BMP tomorrow morning to follow blood counts, renal function, electro-lites. At time of discharge medical care will return to primary care provider, Dr. Taveras 06/30/2016-I reviewed this chart, the patient history, and the TEXTILE MACHINE OPERATOR's/PA's documented findings as above. We discussed and formulated the assessment and plan as above with the additions below.-Dr. Burroughs Patient was seen and examined independently in the CCU this afternoon. She states she is feeling progressively more fatigued over the past 2-3 days. She's developed shortness of breath with activities. She also has a fullness and tenderness in her abdomen. She has had no fevers, chills or sweats. She has had some occasional dysuria. She's not had any nausea or vomiting. She has normally brown colored stools but has had some red blood which she attributes to hemorrhoids. She is not able to give herself the suppositories to help with hemorrhoids has of shoulder pains. This morning her hemoglobin was 6.2. She chronically has anemia with hemoglobin in the 9.3 range. She had vitamin B-12 and folate levels checked here in May and they were normal. The patient also has history of unknown type of liver disease for which she sees Dr. Cade. She is on Xifaxan she is on prednisone chronically for knee pains and back pain. On exam she is alert and oriented 3 and in no acute distress. She has received 1 unit of blood. Currently heart rate is 60 and O2 sat is 94% on room air. HEENT reveals sclerae to be anicteric and oropharynx is moist. Neck is supple. Chest is clear to auscultation. Cardiovascular reveals a regular rate and rhythm. Abdomen is soft and mildly tender in the epigastrium. Abdomen is mildly distended. Bowel sounds are normoactive. Extremities are free of clubbing cyanosis or edema. Lab work was reviewed. Lactate was elevated at 2.5 this morning and on repeat is 1.6. Pro-calcitonin 0.05. TSH is elevated at 10.8. Impression Anemia chronic with acute worsening GI bleed with bright red blood likely from hemorrhoids which is chronic, cannot rule out an acute upper or lower GI bleed Abdominal pain Sepsis -with elevated lactate, improved UTI-start Rocephin History of liver disease-possible cirrhosis-continue rifaximin Paroxysmal A. fib for which she is on eliquis-this will be on hold for gi bleed. Continue amiodarone and atenolol CHF-EF 55% Chronic kidney disease Hypertension Chronic pain on chronic narcotics Chronic prednisone use Dementia Hypothyroidism Patient was admitted to CCU. With her chronic anemia we'll go ahead and give 2 units of blood today. PICC line is being placed for poor IV access. B-12 and folate were normal last month. We'll check iron studies. Dr. Winters has been consulted and plans for EGD tomorrow. We'll place the patient on proton pump inhibitor IV. Will obtain serial hemoglobin will stay 2 units ahead. Will continue usual steroids but keep in mind she may need stress dose steroids if she has any worsening. Regarding UTI with elevated lactate, Rocephin has been started and the patient was given IV fluids. Lactate has normalized. The patient will remain here in CCU for close monitoring overnight. THANG DAVE APRN Jul 01, 2016 15:32
--- NOTE | 2016-07-01 15:34 | NUR ---
ESTER DAVE APRN, REQUESTED PT REMAIN IN THE CCU UNTIL COLONOSCOPY COMPLETE DUE TO PT FRAILTY, WITH THE APPROVAL TO MOVE PT SHOULD A MORE EMERGENT PT REQUIRE THE CCU BED. RN COMMUNICATED TO DR. MAYFIELD AND RECEIVED VORB FROM DR. MAYFIELD TO KEEP PT IN CCU UNTIL COLONOSCOPY COMPLETE, OR THE NEED TO PLACE A MORE EMERGENT PT IN CCU.
[2016-07-01 16:06] LABS: HGB - HEMOGLOBIN 8.1 GM/DL (12-16)
[2016-07-01] MEDS: ONDANSETRON 4mg/2ml INJECTION IV PRN ×2 (16:14→23:18)
--- NOTE | 2016-07-01 17:50 | NUR ---
PICC LINE RN COMMUNICATED TO DR. MAYFIELD THAT US WAS COMPLETE AND vRAD REPORT FORTHCOMING. DR. MAYFIELD ACKNOWLEDGED RECEIPT OF vRAD REPORT. RN RECD VORB TO REMOVE EXISTING PICC LINE AND REPLACE WITH PICC LINE/MIDLINE. RN NOTIFIED AMANDA PABON RN, INFUSION THERAPY.
--- NOTE | 2016-07-01 19:16 | PNF ---
DATE OF SERVICE 07/01/2016 FINDINGS Mrs. Liu this evening was in good spirits. EXAM Vitals: Afebrile, normotensive. Current vitals include temperature 97.8, pulse 60, respirations 21, blood pressure 143/67, SAO2 96% on room air. CHEST: Clear to auscultation bilaterally. HEART: Regular rate and rhythm. Normal S1 and S2 without gallops, murmurs or clicks. ABDOMEN: Abdomen is slightly distended. Palpation of the abdomen revealed it to be nontender throughout. There was no evidence for guarding or rebound. No evidence for hepatomegaly or other abnormal masses. LABORATORY/RADIOGRAPHIC EVALUATION The patient's hemoglobin has been overall stable since her transfusion. Last hemoglobin was 8.1. BMP obtained today and found to be essentially within normal limits. Potassium slightly elevated at 5.1. Chloride was slightly elevated at 108. I did request records from her prior colonoscopy from last year. I did review the colonoscopy from last year and the physician had found a polyp during the colonoscopy but stated that the bowel prep was not adequate and that overall good visualization was not able to be accomplished. Additionally, as he withdrew the scope back into the rectum apparently there was a small perforation noted within the rectum. Patient informs me that she was supposed to "follow up with him" but that this had never occurred. ASSESSMENT 80-year-old female with history for rectal bleeding, finding of progressive anemia upon laboratory evaluation of uncertain etiology. PLAN If her colonoscopy would have been completely normal and adequate bowel prep had been performed nine months to a year ago, it was my plan not to proceed with repeat colonoscopy. However, after reviewing her prior colonoscopy report and the fact that apparently the bowel prep was fairly poor and adequate visualization was not able to be accomplished, it is my recommendation that we go ahead and proceed with a repeat colonoscopy at this point time given her progressive anemia and history for rectal bleeding. Once again this evening I did discuss with the patient what a colonoscopy entailed and its associated risks which included but was not inclusive of bleeding and/or perforation. Patient understood and wished to proceed. IMELDA
--- NOTE | 2016-07-01 21:50 | NUR ---
R PICC DC At this time using sterile technique, pt was not able to preform Valsalva maneuver or hold her breath for more than a few seconds, no resistence was met while pulling cath out, pressure held with sterile gauze and triple antibiotic ointment for 5min to puncture site after line removal, no bleeding, sterile drsg applied, pt tolerated procedure well. Cath external length at time of DC was 0cm, 40cm of cath removed from pt, catheter tip intact,
[2016-07-01 22:47] LABS: HGB - HEMOGLOBIN 8.1 GM/DL (12-16)
[2016-07-01] MEDS: MELATONIN 5 MG TABLET PO SCH (23:40)
[2016-07-01] MEDS: DONEPEZIL 5 MG TABLET PO SCH (23:40)
[2016-07-02] VITALS (46 sets, daily range): BP systolic 96–178; BP diastolic 51–76; PULSE 60–80; RESP 15–41; TEMP 97.1–100.9; O2SAT 89–100
[2016-07-02 02:18] LABS: TOTAL IRON BINDING CAPACITY 453 UG/DL (261-497)
[2016-07-02 02:20] LABS: IRON 21 UG/DL (37-170); IRON % SAT (TRANSF %SAT)(CALC) 5 % (9-55)
--- NOTE | 2016-07-02 04:00 | NUR ---
STOOL IS CLEAR YELLOW/GREEN AT THIS TIME.
[2016-07-02 05:12] LABS: HCT - HEMATOCRIT 27.7 % (36-46); HGB - HEMOGLOBIN 7.9 GM/DL (12-16); MEAN CORPUSCULAR HGB 26.5 UUG (26-34); MEAN CORPUSCULAR HGB CONC(MCHC 28.5 GM/DL (31-37); MEAN PLATELET VOLUME 12.3 UM3 (9.4-12.4); RED BLOOD COUNT 2.98 M/MM3 (4.00-5.20); WBC - WHITE BLOOD COUNT 4.2 T/MM3 (4.5-11.0)
[2016-07-02 05:19] LABS: ALBUMIN 3.2 G/DL (3.5-5.0); ANION GAP 11 MEQ/L (5-15); BUN/CREATININE RATIO 17 RATIO (6-26); CALCIUM 8.9 MG/DL (8.4-10.2); CHLORIDE 106 MEQ/L (98-107); CO2 - CARBON DIOXIDE 27 MEQ/L (22-30); CREATININE 1.1 MG/DL (0.7-1.2); GLOMERULAR FILTRATION RATE 48; GLUCOSE 99 MG/DL (65-110); PHOSPHORUS 3.9 MG/DL (2.5-4.5); POTASSIUM 3.9 MEQ/L (3.6-5); SODIUM 144 MEQ/L (134-144)
[2016-07-02 05:56] LABS: ANISOCYTOSIS 1+; LYMPHOCYTES # (MANUAL) 1.1 T/MM3 (1-4.8); MONOCYTES # (MANUAL) 0.3 T/MM3 (0-0.8); NEUTROPHILS #(MANUAL)-ABSOLUTE 2.8 T/MM3 (1.8-7.7); POIKILOCYTOSIS 1+; TOTAL CELLS COUNTED 100 %
[2016-07-02] MEDS: LEVOTHYROXINE 112 MCG TABLET PO SCH (06:12)
--- NOTE | 2016-07-02 07:23 | PNSURG ---
Subjective DATE: 07/02/16 TIME: 07:18 Interval History Staff indicate the bowel prep seems to have "gotten her cleaned out" yesterday. She is shaky this morning, but able to get to camode with gate belt and assist of 2. Denies abd pain, chest pain. Ricardo helped with nausea. Objective Vital Signs Date Time Temp Pulse Resp B/P Pulse Ox O2 Delivery O2 Flow Rate FiO2 07/02/16 06:00 60 15 129/58 92 Room Air 07/02/16 05:00 97.1 07/01/16 22:00 2.00 Height (Feet): 5 Height (Inches): 3.00 Weight (Kilograms): 99.200 BMI 37.6 General Appearance: Alert, Orientated x 3 Respiratory: FOUND: clear bilaterally Cardiac: FOUND: regular rate (paced) Musculoskeletal: FOUND: other (weak) Laboratory Trend Hemoglobin Test 06/30/16 07:37 06/30/16 20:12 06/30/16 22:10 07/01/16 05:10 Hemoglobin 6.2GM/DL (12-16) 8.3GM/DL (12-16) 8.1GM/DL (12-16) 7.6GM/DL (12-16) Test 07/01/16 10:08 07/01/16 15:47 07/01/16 22:37 07/02/16 04:29 Hemoglobin 7.9GM/DL (12-16) 8.1GM/DL (12-16) 8.1GM/DL (12-16) 7.9GM/DL (12-16) Laboratory Tests 06/30/16 07:37 07/01/16 05:10 07/02/16 04:29 Laboratory Tests 06/30/16 07:37 06/30/16 20:12 06/30/16 22:10 07/01/16 05:10 07/01/16 10:08 07/01/16 15:47 07/01/16 22:37 07/02/16 04:29 Procedure Procedure Date: Jul 01, 2016 Surgeon: Vianey NAM Assessment & Plan Problems: (1) Acute blood loss anemia Status: Acute (2) Anticoagulated Status: Chronic Assessment Bowel prep complete- proceed with colonoscopy this morning, if all goes well may transfer to floor after colonoscopy. Code Status Do Not Resuscitate Hospital Course Summary Disclaimer The visit summary below is not to be considered part of the above Progress Note. Hospital Course Summary 06/30 Admit patient to inpatient status under the care of Dr Burroughs for Sepsis with UTI and Anemia Patient started on Rocephin 1 mg IV while in the ER. Will continue with daily dosing. Urine and blood cultures pending. Follow serial lactate levels as per sepsis protocol. Patient is type, screen and crossmatched for 1 unit of packed red blood cells transfusion given anemia. Patient is chronically on Eliquis for chronic atrial fibrillation. She denies having black stools and attributes some red stools to Hemorrhoids Surgical consultation by Dr. Winters In light of anemia. Patient may have clear liquid diet now. Will follow platelet count as patient does have thrombocytopenia, however, this appears to be chronic. She does see Dr. Zuniga for chronic anemia since her breast cancer in 2008. Plt count in in 80-90's. Will obviously need to hold all anticoagulation given anemia with probably Gi bleeding. CHADS2 score 5.9% (moderate risk) SCDs to bilateral lower ext for DVT prophylaxis Will need to discuss and review all home medications with attending, Dr Burroughs. Recheck CBC and a BMP tomorrow morning to follow blood counts, renal function, electro-lites. At time of discharge medical care will return to primary care provider, Dr. Taveras 06/30/2016-I reviewed this chart, the patient history, and the CANDLEMAKING LABORER's/PA's documented findings as above. We discussed and formulated the assessment and plan as above with the additions below.-Dr. Burroughs Patient was seen and examined independently in the CCU this afternoon. She states she is feeling progressively more fatigued over the past 2-3 days. She's developed shortness of breath with activities. She also has a fullness and tenderness in her abdomen. She has had no fevers, chills or sweats. She has had some occasional dysuria. She's not had any nausea or vomiting. She has normally brown colored stools but has had some red blood which she attributes to hemorrhoids. She is not able to give herself the suppositories to help with hemorrhoids has of shoulder pains. This morning her hemoglobin was 6.2. She chronically has anemia with hemoglobin in the 9.3 range. She had vitamin B-12 and folate levels checked here in May and they were normal. The patient also has history of unknown type of liver disease for which she sees Dr. Cade. She is on Xifaxan she is on prednisone chronically for knee pains and back pain. On exam she is alert and oriented 3 and in no acute distress. She has received 1 unit of blood. Currently heart rate is 60 and O2 sat is 94% on room air. HEENT reveals sclerae to be anicteric and oropharynx is moist. Neck is supple. Chest is clear to auscultation. Cardiovascular reveals a regular rate and rhythm. Abdomen is soft and mildly tender in the epigastrium. Abdomen is mildly distended. Bowel sounds are normoactive. Extremities are free of clubbing cyanosis or edema. Lab work was reviewed. Lactate was elevated at 2.5 this morning and on repeat is 1.6. Pro-calcitonin 0.05. TSH is elevated at 10.8. Impression Anemia chronic with acute worsening GI bleed with bright red blood likely from hemorrhoids which is chronic, cannot rule out an acute upper or lower GI bleed Abdominal pain Sepsis -with elevated lactate, improved UTI-start Rocephin History of liver disease-possible cirrhosis-continue rifaximin Paroxysmal A. fib for which she is on eliquis-this will be on hold for gi bleed. Continue amiodarone and atenolol CHF-EF 55% Chronic kidney disease Hypertension Chronic pain on chronic narcotics Chronic prednisone use Dementia Hypothyroidism Patient was admitted to CCU. With her chronic anemia we'll go ahead and give 2 units of blood today. PICC line is being placed for poor IV access. B-12 and folate were normal last month. We'll check iron studies. Dr. Winters has been consulted and plans for EGD tomorrow. We'll place the patient on proton pump inhibitor IV. Will obtain serial hemoglobin will stay 2 units ahead. Will continue usual steroids but keep in mind she may need stress dose steroids if she has any worsening. Regarding UTI with elevated lactate, Rocephin has been started and the patient was given IV fluids. Lactate has normalized. The patient will remain here in CCU for close monitoring overnight. THANG DAVE APRN Jul 02, 2016 07:21
--- NOTE | 2016-07-02 07:28 | ANESPREOP ---
Anesthesia Record Date and Time DATE: 07/02/16 TIME: 07:26 Pre-Op Diagnosis anemia Proposed Surgical Procedure colonoscopy NPO since: [place] Allergies: Coded Allergies: phenylbutazone (Verified Allergy, Mild, HIVES (BUTAZOLIDIN - MANU DISC), ) lansoprazole (Verified Adverse Reaction, Mild, DIARRHEA, 06/02/16) Ht/Wt/BMI Height: 5 ' 3.00 " Weight: 99.200 kg BMI: 37.6 kg/m2 Vital Signs Date Time Temp Pulse Resp B/P Pulse Ox O2 Delivery O2 Flow Rate FiO2 07/02/16 06:00 60 15 129/58 92 Room Air 07/02/16 05:00 97.1 07/01/16 22:00 2.00 Medications Inpatient Medications Current Medications Medications (Trade) Dose Ordered Sig/Kip Start Time Stop Time Status Last Admin Dose Admin Sodium Chloride (Normal Saline IV) 1,000 ml @ 100 mls/hr Q10H 06/30/16 14:00 07/01/16 09:47 DC 07/01/16 03:40 100 MLS/HR Pantoprazole Sodium 40 mg 40 mg BID 06/30/16 14:00 07/01/16 10:23 DC 07/01/16 09:34 40 MG Ceftriaxone Sodium/Sodium Chloride (Rocephin/NS) 100 ml @ 200 mls/hr DAILY 07/01/16 09:00 07/01/16 09:33 200 MLS/HR Morphine Sulfate (Morphine) 2-4 mg iv q2 hours as needed Q2H PRN 06/30/16 15:45 07/01/16 10:32 2 MG Acetaminophen (Tylenol Regular Strength) as directed PRN 06/30/16 15:45 Amiodarone HCl (Pacerone) 200 mg DAILY 07/01/16 09:00 07/01/16 09:36 200 MG Atenolol (TENORMIN 50 mg) 50 mg DAILY 07/01/16 09:00 07/01/16 09:35 50 MG Divalproex Sodium (Depakote) 500 mg DAILY 07/01/16 09:00 07/01/16 09:34 500 MG Donepezil HCl (Aricept) 5 mg HS 06/30/16 22:00 07/01/16 23:40 5 MG Acetaminophen/ Hydrocodone Bitart (Ava 10/325) 1 tab Q6H PRN 06/30/16 15:45 07/01/16 19:31 1 TAB Levothyroxine Sodium (Synthroid) 112 mcg ACB 07/01/16 06:30 Mirabegron (Myrbetriq) 25 mg DAILY 07/01/16 09:00 07/01/16 09:34 25 MG Pramipexole Dihydrochloride (Mirapex) 1 mg DAILY 07/01/16 09:00 07/01/16 09:34 1 MG Prednisone (PredniSONE) 7.5 mg WB 06/30/16 15:45 07/01/16 09:35 7.5 MG Rifaximin (Xifaxan) 550 mg BID 06/30/16 21:00 07/01/16 23:40 550 MG Sertraline HCl (Zoloft) 100 mg DAILY 07/01/16 09:00 07/01/16 09:36 100 MG Melatonin 5-10MG HS 06/30/16 22:00 07/01/16 23:40 10 MG Sodium Chloride (NS) 500 ml @ 0 mls/hr Q0M 06/30/16 16:16 Bumetanide (BUMEX 0.5 mg TAB) 0.5 mg BID.. 07/01/16 10:00 07/01/16 16:13 0.5 MG Pantoprazole Sodium (Protonix Iv) 40 mg DAILY 07/02/16 09:00 Ondansetron HCl (Zofran) 4 mg Q4H PRN 07/01/16 15:30 07/02/16 15:30 07/01/16 23:18 4 MG Acetaminophen (Tylenol) 325 Mg Tablet, 1-2 TAB PO PRN, (Reported) Last Taken: on 06/22/16 0626 Amiodarone HCl (Amiodarone HCl) 200 Mg Tablet, 200 MG PO DAILY Last Taken: on 06/29/16 0853 Apixaban (Eliquis) 5 Mg Tablet, 5 MG PO BID, ( Reported) Last Taken: on 06/29/16 1635 Atenolol (Atenolol) 50 Mg Tablet, 1 TAB PO DAILY , (Reported) Last Taken: on 06/29/16 0853 Bumetanide (Bumetanide) 0.5 Mg Tablet, 1 TAB PO BID, (Reported) Last Taken: on 06/29/16 1235 Calcium Carbonate/Vitamin D3 (Calcium 600 + Vit D Caplet) 1 Each Tablet, PO DAILY, (Reported) Last Taken: on 06/29/16 0853 Divalproex Sodium (Divalproex Sodium) 500 Mg Tablet.dr, 500 MG PO DAILY, (Reported) Last Taken: on 06/29/16 08 Donepezil HCl (Donepezil HCl) 5 Mg Tablet, 1 TAB PO HS, (Reported) Last Taken: on 06/29/16 180 Hydrocodone/Acetaminophen (Ava 10-325 Tablet) 1 Each Tablet, 1 TAB PO Q6H PRN for PRN ORDERS Last Taken: on 06/30/16 0232 Levothyroxine Sodium (Levothyroxine Sodium) 112 Mcg Tablet, 112 MCG PO ACB, (Reported) Once daily before breakfast. Last Taken: on 06/30/16 06 Melatonin (Melatonin) 3 Mg Tablet, 5-10 MG PO HS PRN for DE, (Reported) Last Taken: on 06/29/162003 Mirabegron (Myrbetriq) 25 Mg Tab.er.24h, 25 MG PO DAILY, (Reported) Last Taken: on 06/29/16853 Omeprazole (Prilosec) 20 Mg Capsule, 20 MG PO ACBID Last Taken: on 06/29/16618 Ospemifene (Osphena) 60 Mg Tablet, 60 MG PO DAILY, (Reported) Last Taken: on 06/29/16853 Polyethylene Glycol 3350 (Miralax) 17 Gm Powd.pack, 1 PACKET PO DAILY PRN for CONSTIPATION, (Reported) Last Taken: on Unknown Date & Time Potassium Chloride (Potassium Chloride) 10 Meq Capsule.er, 2 CAP PO BIDWM, (Reported) Take 1 capsule, by mouth, two times a day with meals Last Taken: on 06/29/161808 Pramipexole Di-HCl (Mirapex) 1 Mg Tablet, 1 MG DAILY, (Reported) Last Taken: on 06/29/161808 Prednisone (Prednisone) 5 Mg Tablet, 7.5 MG PO WB, (Reported) Take 1 1/2 (5 mg) tablets, by mouth, one time a day with breakfast. Last Taken: on 06/29/16 0854 Rifaximin (Xifaxan) 550 Mg Tablet, 550 MG PO BID , (Reported) Last Taken: on 06/29/16 1635 Sertraline Hcl (Zoloft) 100 Mg Tablet, 100 MG PO DAILY, (Reported) Last Taken: on 06/29/16 0854 Currently on Beta Jaylene: Yes Beta Jaylene Last Taken: Atenolol Medical/Surgical History Anesthesia PMH: Reports: *Hypertension, Arthritis (GENERALIZED), CHF, Cancer ( breast cancer), Deep Vein Thrombosis, Headaches (MIGRAINES), Obesity, Pacemaker , Reflux, Renal Disease, Thyroid Disease, Denies: *Angina, *Diabetes, *Dyspnea, *TX, Anesthesia Reactions (ASPIRATED X1 AFTER OPEN CHRISS), Asthma, Blood Transfusion Reac, COPD, CVA/Stroke/TIA, Clotting Problems, Glaucoma, Hepatitis, Hiatal Hernia, Malignant Hyperthermia, Pneumonia, Rheumatic Fever, Seizures, Sleep Apnea, Tuberculosis Smoking Status: Never smoker Has pt. smoked today?: No Use Chewing Tobacco?: No Second Hand Exposure: No Substance Use Type: does not use Substance last used: prior to arrival Past Surgical History Orthopedic Surgeries: Yes - 2008 L TOTAL KNEE, 4 BACK SURGERIES, multiple screws and rods Abdominal Surgeries: Yes - CHOLECYSTECTOMY Genitourinary Surgeries: Yes - HYSTERECTOMY Cardiac Surgeries: No Endocrine Surgeries: No Reproductive Surgeries: No Neurological Surgeries: No Ear Surgeries: No Nose Surgeries: No Throat Surgeries: Yes - T&A Other Surgeries: Yes - Breast cancer biopsy; LEFT LUMPECTOMY Anesthesia Adverse Reactions: FOUND none Family Hx of Anesthesia Advers: none Hx of Motion Sickness: No Pertinent Findings Laboratory Tests 07/02/16 04:29 Test 06/30/16 07:28 Activated Partial Thromboplast Time 31.1SEC (24-36) Prothromb Time International Ratio 1.53 (0.76-1.04) EKG Rhythm: Paced Physical Exam Respiratory: Bilat breath sounds equal, Lungs clear Cardiovascular: FOUND Regular rate, rhythm, FOUND No murmur Airway Assessment Mallampati Score: II TMD: 3 Fingerbreadths Neck Extension: Good Teeth: Upper Dentures, Lower Dentures ASA: 3 Plan Anesthesia Plan: TIVA Discussion Discussed risks/options/alternatives of anesthesia and questions answered. Patient consents. Nursing pain assessment noted. Attestation Statement Prior to the delivery of any anesthetic medication, I examined the patient, developed the plan, obtained the patient's consent and discussed the risk and benefits of the procedure with the patient/guardian. ALEXIS RAMIREZ EXTENDER Jul 02, 2016 07:28
[2016-07-02] MEDS ORDERED: FENTANYL 100mcg/2ml INJECTION ONE (07:32)
[2016-07-02] MEDS ORDERED: LIDOCAINE 2% (20mg/ml) 5ml PF SDV ONE (07:32)
[2016-07-02] MEDS ORDERED: PROPOFOL 500mg 0 ML IV ONE (07:32)
[2016-07-02] MEDS ORDERED: MIDAZOLAM 2mg/2ml INJECTION ONE (07:32)
[2016-07-02] MEDS ORDERED: KETAMINE 500mg/10ml INJECTION ONE (07:33)
[2016-07-02] MEDS ORDERED: PROPOFOL 200mg 20 ML IV ONE (07:33)
--- NOTE | 2016-07-02 07:40 | NUR ---
TRANSFER TO SURGERY FOR COLONOSCOPY. PT A&OX3. VSS. PT UP TO [facility] JUST PRIOR TO TRANSFER.
--- NOTE | 2016-07-02 08:24 | DI ---
Indication: ITS.REASON: PT C/O OF PAIN AT CLEMENC[facility] PICC SITE PROCEDURE: US VENOUS DUPLEX, UPPER EXT RT: Encounter: Initial Comparison: 04/25/2009, 04/20/2009 Technique: Color Doppler duplex and grayscale sonographic imaging of the right upper extremity was performed. FINDINGS: Right basilar PICC line in place. There is nonocclusive clot at the insertion. Questionable mild aneurysmal enlargement near the PICC line insertion. There is no evidence for acute deep venous thrombosis in the right arm. Specifically, the right internal jugular, subclavian, axillary and paired brachial veins were evaluated; compression and augmentation were applied where possible. In addition, color and pulsed Doppler demonstrate appropriate spontaneous flow, cardiac pulsatility and variation with respiration. IMPRESSION: 1. Nonocclusive superficial thrombophlebitis at the PICC line insertion site in the basilar vein. 2. No evidence of acute DVT in the right upper extremity. The above report concurs with the preliminary report provided by virtual radiologic at 5:35 PM. .
--- NOTE | 2016-07-02 08:28 | GSPOSTPN ---
Endoscopy Procedure Procedure Date: Jul 02, 2016 Surgeon: Vianey Anesthesia: TIVA ASA: 3 Procedure: Colonoscopy-snare polypectomy, Colonoscopy-forceps polypectomy Diagnosis Postop Colonoscopy Diagnosis Polyps at: FOUND Ascending Colon, FOUND Rectal Vault Postop EGD Diagnosis Postop EGD Diagnosis: FOUND Other (PRE-PYLORIC POLYP) Complications Complications Estimated Blood Loss See Anesthesia Record. Vital Signs See Anesthesia and PACU record. THANG DAVE SECOND BUTLER Jul 02, 2016 07:53
[2016-07-02] MEDS: BUMETANIDE 0.5 MG TABLET PO SCH ×2 (09:00→18:13)
[2016-07-02] MEDS: RIFAXIMIN 550 MG TABLET PO SCH ×2 (09:00→23:11)
[2016-07-02 09:57] LABS: HGB - HEMOGLOBIN 7.7 GM/DL (12-16)
--- NOTE | 2016-07-02 10:38 | ANESPO ---
Post-Op Note Date 07/02/16 Time: 08:50 Status Pt Participated in Evaluation: Pt participated in person Vital Signs Date Time Temp Pulse Resp B/P Pulse Ox O2 Delivery O2 Flow Rate FiO2 07/02/16 09:03 60 19 07/02/16 07:00 97.5 121/58 95 07/02/16 06:00 Room Air 07/01/16 22:00 2.00 Respiratory Function: Airway patent, Regular respirations Cardiovascular Function: Regular pulse Telemetry Pattern: SR Mental Status: Alert/oriented Pain Level Intensity: 0 Unable to Assess Pain Due To: Pt Sleeping Hydration: Taking po fluids Complications during Recovery None apparent Follow-Up Instructions Instructions Per Surgeon ALEXIS RAMIREZ CRNA Jul 02, 2016 10:38
--- NOTE | 2016-07-02 10:52 | OPNOTEF ---
DATE OF SERVICE 07/02/2016 SURGEON Mino Winters MD PREOPERATIVE DIAGNOSIS Anemia of uncertain etiology. POSTOPERATIVE DIAGNOSIS Anemia of uncertain etiology, polyp x1 within rectum, polyp x1 within mid ascending colon. PROCEDURE Colonoscopy with snare polypectomies. ANESTHESIA TIVA BRIEF HISTORY/INDICATIONS Mrs. Liu is a 80-year-old female who recently was admitted to our facility as a result of profound weakness and finding of marked anemia upon laboratory evaluation. Patient, following hospitalization, did undergo an EGD that didn't reveal any etiology for her anemia. It was recommended therefore she undergo a colonoscopy. For completeness please refer to notes included in the patient's chart. FINDINGS Upon colonoscopy the patient was found have a sessile polyp-like structure within the rectum next to an apparent "scar". The patient did have a prior history apparently for rectal perforation upon her prior colonoscopy performed in [place]. This very well could have been the site of her prior perforation. There was some raised polyp-like structures, however, adjacent to this scar-like area. This also could be consistent with a prior polypectomy site. The polyp-like portion was removed in its entirety endoscopically. There was no evidence for angiodysplastic lesions, diverticulum nor avtar malignancies. The patient was found to have an additional polyp within the mid ascending colon that was on the order of about 1.5 cm in diameter. This polyp was somewhat more "firm" than typically one would see with an adenomatous polyp. This polyp-like structure however was removed in its entirety endoscopically via snare polypectomy technique. There did appear to be some slight amount of blood overlying this polyp-like structure which could have been contributing to her anemia. DESCRIPTION OF PROCEDURE After informed consent was obtained, the patient was brought to the endoscopy suite and placed on the table in left lateral decubitus position. The patient subsequently underwent total intravenous anesthesia by the nurse line supervisor per my request. Formal time-out was then completed. Next, a digital rectal examination was performed. Normal sphincter tone. Patient was found to have some internal and external hemorrhoids but no discrete worrisome palpable abnormalities were noted within the anal canal. Next, an Olympus colonoscope was inserted in the anus and advanced through the lumen of the colon under direct visualization at all times until the cecum was ascertained. Triangulation of the teniae coli, ileocecal valve and appendiceal lumen were all visualized. The scope was then slowly withdrawn. Within the mid ascending colon, the patient was found to have a polyp-like structure that was sessile and on the order of about 1.5 cm in diameter. Snare was placed around this polyp-like structure and the polyp was removed in its entirety via piecemeal snare polypectomy technique. One could ascertain that the polyp did appear slightly more hard and firm than one typically would see with a polyp. This however was not an obvious malignancy. Additionally, there was some minimal amount of blood overlying the polyp-like structure surface. Given her anticoagulation, this polyp could have been contributing to some extent to her anemia. Scope was then slowly withdrawn again while maintaining visualization of the lumen at all times. As stated above, there was no evidence for angiodysplastic lesions, diverticulum. Once the scope was withdrawn back into the rectal vault, one could see a scar-like area that was on the order of about 1 cm in length. Around the edges of this scar-like area, one could see several polyp-like structures that were on the order of about 5-8 mm in diameter. These polyp-like structures were removed via a combination of a snare polypectomy technique and cold biopsy technique. The rectal vault did appear slightly more narrow in its overall diameter and a J-maneuver was not able to be completed. Scope was then slowly withdrawn back to the anal verge. Again, no abnormalities were noted. The scope was removed from the anal verge. The patient tolerated the procedure without difficulty and was sent back to the preop area in stable condition. We will await the biopsy results from today's polypectomies and will proceed accordingly with further recommendations thereafter. IMELDA
[2016-07-02] MEDS: PANTOPRAZOLE 40mg INJECTION IV SCH (11:33)
[2016-07-02] MEDS: CEFTRIAXONE 1 G in NORMAL SALINE 100 ML IV SCH (11:34)
[2016-07-02] MEDS: MORPHINE SULFATE 2 MG SYRINGE IV PRN (12:20)
--- NOTE | 2016-07-02 14:02 | PNPDOC ---
Subjective Date DATE: 07/02/16 TIME: 13:47 Subjective The patient is still very somnolent this morning post colonoscopy. She is requiring 3 L of oxygen. When I went in to examine her she opened her eyes and recognized me by name. She is occasionally chilling. She's not able to stay awake long enough to answer any other questions. She has some sonorous respirations. Objective Vital Signs Vital signs Vital Signs Date Time Temp Pulse Resp B/P Pulse Ox O2 Delivery O2 Flow Rate FiO2 07/02/16 12:30 61 27 142/65 95 Nasal Cannula 1.00 07/02/16 12:00 99.2 GEN-somnolent post colonoscopy, somewhat sonorous breathing HEENT-sclera anicteric, oropharynx is moist CV-regular rate and rhythm CHEST-clear to auscultation ABD-soft, moderately distended, nontender, hypoactive bowel sounds -no Pfeiffer EXT-no edema NEURO-very somnolent SKIN-warm and dry Height (Feet): 5 Height (Inches): 3.00 Weight (Kilograms): 97.800 Laboratory Laboratory Laboratory Tests 07/01/16 05:10 07/02/16 04:29 Laboratory Tests 06/30/16 20:12 06/30/16 22:10 07/01/16 05:10 07/01/16 10:08 07/01/16 15:47 07/01/16 22:37 07/02/16 04:29 07/02/16 09:38 Microbiology Microbiology Microbiology Date/Time Source Procedure Growth Status 06/30/16 07:37 Peripheral/Iv Start Blood Culture - Preliminary NO GROWTH AFTER 48 HOURS Resulted 06/30/16 07:31 Peripheral/Iv Start Blood Culture - Preliminary NO GROWTH AFTER 48 HOURS Resulted 06/30/16 09:52 Urine, Voided-Not Cc-Midstream Urine Culture - Final Enterobacter Cloacae Complete URINE CULTURE. Final 07/02/16 Organism 1 ENTEROBACTER CLOACAE COLONY COUNT >100,000 CFU/ml E CLOACAE INTERP ROSHAN ------ --------- AMOX/CLAV ACID R >=32 CEFAZOLIN R >=64 CEFEPIME S <=1 CEFTAZIDIME S <=1 CEFTRIAXONE S <=1 CIPROFLOXACIN S <=0.25 ERTAPENEM S <=0.5 GENTAMICIN S <=1 LEVOFLOXACIN S 1 NITROFURANTOIN S 32 TOBRAMYCIN S <=1 TRIMETH/SULFA R >=320 PIPERACILL/TAZO S <=4 URINE CULTURE. Preliminary (changed) 07/01/16 Organism 1 GRAM NEGATIVE ALF COLONY COUNT >100,000 CFU/ml URINE CULTURE. Preliminary (changed) 06/30/16-952 CULTURE INITIATED - RESULTS PENDING Assessment & Plan Problems: (1) Sepsis Status: Acute Assessment & Plan: Magnifications of sepsis include the following- 1. UTI 2. Elevated Lactate- 2.5 3. Tachypneic 28/min (2) Anemia Status: Acute (3) Thrombocythemia Status: Chronic Assessment & Plan: Likely chronic (4) UTI (lower urinary tract infection) Status: Acute Assessment & Plan: Acute (5) HTN (hypertension) Status: Chronic (6) GERD (gastroesophageal reflux disease) Status: Chronic (7) Hypothyroidism Status: Chronic (8) Depression Status: Chronic (9) Osteoarthritis Status: Chronic (10) CHF following non-cardiac surgery, postop Status: Chronic (11) Anticoagulated Status: Chronic (12) Cirrhosis Status: Chronic (13) Paroxysmal atrial fibrillation Status: Chronic (14) CKD (chronic kidney disease), stage III Status: Chronic (15) Chronic back pain Status: Chronic (16) Invasive ductal carcinoma of breast, stage 2 Onset Date: ~ 2006 Status: Chronic Assessment 07/02/16 Impression Somnolence post procedure -check ABG to rule out CO2 retention Anemia or acute on chronic-improved post transfusion of 2 units of blood on admission GI bleed -EGD did not show any source for bleeding. Colonoscopy did show 2 polyps one of which might have bled. Abdominal pain Sepsis -with elevated lactate-resolved GUD-Mqhpuyvmobjw-mcvnfuqjh to Rocephin Paroxysmal A. fib for which she is on eliquis-this will be on hold for gi bleed. Continue amiodarone and atenolol CHF-EF 55% Chronic kidney disease Hypertension Chronic pain on chronic narcotics Chronic prednisone use Dementia Hypothyroidism Mild hyperkalemia-resolved Cirrhosis secondary to WU-continue rifaximin We'll check an ABG now. Continue to monitor for now in CCU. Recheck labs tomorrow. Code Status Do Not Resuscitate Hospital Course Summary Disclaimer The hospital course summary below is not to be considered part of the above Progress Note. Hospital Course Summary 06/30 Admit patient to inpatient status under the care of Dr Burroughs for Sepsis with UTI and Anemia Patient started on Rocephin 1 mg IV while in the ER. Will continue with daily dosing. Urine and blood cultures pending. Follow serial lactate levels as per sepsis protocol. Patient is type, screen and crossmatched for 1 unit of packed red blood cells transfusion given anemia. Patient is chronically on Eliquis for chronic atrial fibrillation. She denies having black stools and attributes some red stools to Hemorrhoids Surgical consultation by Dr. Winters In light of anemia. Patient may have clear liquid diet now. Will follow platelet count as patient does have thrombocytopenia, however, this appears to be chronic. She does see Dr. Zuniga for chronic anemia since her breast cancer in 2008. Plt count in in 80-90's. Will obviously need to hold all anticoagulation given anemia with probably Gi bleeding. CHADS2 score 5.9% (moderate risk) SCDs to bilateral lower ext for DVT prophylaxis Will need to discuss and review all home medications with attending, Dr Burroughs. Recheck CBC and a BMP tomorrow morning to follow blood counts, renal function, electro-lites. At time of discharge medical care will return to primary care provider, Dr. Taveras 06/30/2016-I reviewed this chart, the patient history, and the RECEIVER SETTER's/PA's documented findings as above. We discussed and formulated the assessment and plan as above with the additions below.-Dr. Burroughs Patient was seen and examined independently in the CCU this afternoon. She states she is feeling progressively more fatigued over the past 2-3 days. She's developed shortness of breath with activities. She also has a fullness and tenderness in her abdomen. She has had no fevers, chills or sweats. She has had some occasional dysuria. She's not had any nausea or vomiting. She has normally brown colored stools but has had some red blood which she attributes to hemorrhoids. She is not able to give herself the suppositories to help with hemorrhoids has of shoulder pains. This morning her hemoglobin was 6.2. She chronically has anemia with hemoglobin in the 9.3 range. She had vitamin B-12 and folate levels checked here in May and they were normal. The patient also has history of unknown type of liver disease for which she sees Dr. Cade. She is on Xifaxan she is on prednisone chronically for knee pains and back pain. On exam she is alert and oriented 3 and in no acute distress. She has received 1 unit of blood. Currently heart rate is 60 and O2 sat is 94% on room air. HEENT reveals sclerae to be anicteric and oropharynx is moist. Neck is supple. Chest is clear to auscultation. Cardiovascular reveals a regular rate and rhythm. Abdomen is soft and mildly tender in the epigastrium. Abdomen is mildly distended. Bowel sounds are normoactive. Extremities are free of clubbing cyanosis or edema. Lab work was reviewed. Lactate was elevated at 2.5 this morning and on repeat is 1.6. Pro-calcitonin 0.05. TSH is elevated at 10.8. Impression Anemia chronic with acute worsening GI bleed with bright red blood likely from hemorrhoids which is chronic, cannot rule out an acute upper or lower GI bleed Abdominal pain Sepsis -with elevated lactate, improved UTI-start Rocephin History of liver disease-possible cirrhosis-continue rifaximin Paroxysmal A. fib for which she is on eliquis-this will be on hold for gi bleed. Continue amiodarone and atenolol CHF-EF 55% Chronic kidney disease Hypertension Chronic pain on chronic narcotics Chronic prednisone use Dementia Hypothyroidism Patient was admitted to CCU. With her chronic anemia we'll go ahead and give 2 units of blood today. PICC line is being placed for poor IV access. B-12 and folate were normal last month. We'll check iron studies. Dr. Winters has been consulted and plans for EGD tomorrow. We'll place the patient on proton pump inhibitor IV. Will obtain serial hemoglobin will stay 2 units ahead. Will continue usual steroids but keep in mind she may need stress dose steroids if she has any worsening. Regarding UTI with elevated lactate, Rocephin has been started and the patient was given IV fluids. Lactate has normalized. The patient will remain here in CCU for close monitoring overnight. 07/01/2016 Impression Anemia or acute on chronic-improved post transfusion of 2 units of blood yesterday GI bleed with bright red blood likely from hemorrhoids which is chronic, await results of EGD Abdominal pain Sepsis -with elevated lactate, improved UTI-start Rocephin-GNR in urine History of liver disease-possible cirrhosis-continue rifaximin Paroxysmal A. fib for which she is on eliquis-this will be on hold for gi bleed. Continue amiodarone and atenolol CHF-EF 55% Chronic kidney disease Hypertension Chronic pain on chronic narcotics Chronic prednisone use Dementia Hypothyroidism Mild hyperkalemia-should improve with Bumex Continue serial hemoglobins. Restart Bumex. DC IV fluids. Discuss with Dr. Winters later today regarding EGD results and whether or not colonoscopy is needed. Patient states she underwent a colonoscopy in the summer of 2015 at the [facility] and we will try to obtain results. Creatinine has improved from yesterday with IV fluids. PT and OT eval. Continue to hold anticoagulation. SCDs for DVT prophylaxis. CONNIE BURROUGHS MD Jul 02, 2016 13:50
[2016-07-02 16:07] LABS: BASOPHILS % (AUTO) 0.2 % (0-2); EOSINOPHILS # (AUTO) 0.1 T/MM3 (0-0.5); EOSINOPHILS % (AUTO) 1.4 % (0-4); HCT - HEMATOCRIT 27.3 % (36-46); HGB - HEMOGLOBIN 7.9 GM/DL (12-16); IMMATURE GRANULOCYTE # (AUTO) 0.02 T/MM3 (0.00-0.03); IMMATURE GRANULOCYTE % (AUTO) 0.3 % (0.0-0.5); LYMPHOCYTES # (AUTO) 1.4 T/MM3 (1-4.8); LYMPHOCYTES % (AUTO) 23.7 % (23-45); MEAN CORPUSCULAR HGB 26.7 UUG (26-34); MEAN CORPUSCULAR HGB CONC(MCHC 28.9 GM/DL (31-37); MEAN CORPUSCULAR VOLUME 92.2 UM3 (80-100); MEAN PLATELET VOLUME 11.1 UM3 (9.4-12.4); MONOCYTES # (AUTO) 0.7 T/MM3 (0-0.8); MONOCYTES % (AUTO) 11.3 % (0-9.0); NEUTROPHILS #(AUTO)-ABSOLUTE 3.6 T/MM3 (1.8-7.7); NEUTROPHILS % (AUTO) 63.1 % (33-66); RED BLOOD COUNT 2.96 M/MM3 (4.00-5.20); WBC - WHITE BLOOD COUNT 5.8 T/MM3 (4.5-11.0)
[2016-07-02] MEDS: MIRABEGRON 25 MG TABLET PO SCH (18:12)
[2016-07-02] MEDS: AMIODARONE 200 MG TABLET PO SCH (18:12)
[2016-07-02] MEDS: PRAMIPEXOLE 1 MG TABLET PO SCH (18:12)
[2016-07-02] MEDS: PredniSONE 5 MG TABLET PO SCH (18:12)
[2016-07-02] MEDS: DIVALPROEX 500 MG TABLET PO SCH (18:12)
[2016-07-02] MEDS: SERTRALINE 100 MG TABLET PO SCH (18:13)
[2016-07-02] MEDS: ATENOLOL 50 MG TABLET PO SCH (18:13)
--- NOTE | 2016-07-02 18:15 | NUR ---
STATUS PT IS ALERT TO PERSON AND PLACE, AND READING TIME FROM CLOCK. PT IS DRINKING WELL, AND EATING A FEW BITES OF FOOD. PO MEDICATIONS ADMINISTERED AT THIS TIME. PT REPORTS PAIN TO RIGHT SHOULDER, RN REPOSITIONS TO MAKE PT COMFORTABLE. NO VOID SINCE COLONOSCOPY. BLADDER SCAN REVEALED 152 CC. RN MOVED PT X1 ASSIST FROM BED TO COMMODE WITH OUTPUT NOTED AT 150CC. TEMP ELEVATED TO 100.9, PRN TYLENOL GIVEN PER DR. MAYFIELD CLARIFICATION, THEN TEMP DECREASED TO 99.1. DUE TO PT LETHARGY AND INCREASED TEMP, DR. MAYFIELD ORDERED CBC, LACTATE AND BLOOD CULTURE TAKEN DUE TO SEVERE SEPSIS RISK, LACTATE RETURNED AT 1.3. DECREASED BP NOTED TO DR. MAYFIELD, WITH FURTHER NOTICE OF SBPs ELEVATING TO 130s WITH INCREASED ACTIVITY, FLUID BOLUS CONSIDERED, BUT NOT GIVEN. PT IS BEGINNING TO TALK MORE SHIFT ENDS. PT STRENGTH HAS IMPROVED, ALLOWING PT TO AMBULATE IN ROOM TO COMMODE WITH GAIT BELT AND PERSONAL WALKER.
--- NOTE | 2016-07-02 18:30 | NUR ---
TRANSFER PT TO SURGICAL UNIT. PT ALERT TO PERSON AND PLACE. INCREASING ACTIVITY AND INTAKE. PT ACCEPTED BY Kesha DUENAS RN.
--- NOTE | 2016-07-02 18:38 | NUR ---
ARRIVAL ARRIVES TO ROOM 130 VIA WHEELCHAIR WITH NURSING STAFF FROM CCU. O2 2L PER NC. MIDLINE TO LEFT UPPER ARM, IVL. ALERT AND ORIENTED X2. PATIENT APPEARS DROWSY UPON ARRIVAL. PATIENT TRANSFERRED FROM WHEELCHAIR TO BED VIA GAIT BELT, WALKER AND ASSIST X2 FROM NURSING STAFF.
[2016-07-02] MEDS: MELATONIN 5 MG TABLET PO SCH (22:00)
[2016-07-02] MEDS: DONEPEZIL 5 MG TABLET PO SCH (23:11)
[2016-07-03] VITALS (10 sets, daily range): BP systolic 116–137; BP diastolic 53–63; PULSE 59–73; RESP 16–20; TEMP 96.2–98; O2SAT 94–100
[2016-07-03 05:18] LABS: BASOPHILS % (AUTO) 0.2 % (0-2); EOSINOPHILS % (AUTO) 0.8 % (0-4); HCT - HEMATOCRIT 26.6 % (36-46); HGB - HEMOGLOBIN 7.6 GM/DL (12-16); IMMATURE GRANULOCYTE # (AUTO) 0.01 T/MM3 (0.00-0.03); IMMATURE GRANULOCYTE % (AUTO) 0.2 % (0.0-0.5); LYMPHOCYTES # (AUTO) 1.3 T/MM3 (1-4.8); LYMPHOCYTES % (AUTO) 25.7 % (23-45); MEAN CORPUSCULAR HGB 26.9 UUG (26-34); MEAN CORPUSCULAR HGB CONC(MCHC 28.6 GM/DL (31-37); MEAN PLATELET VOLUME 12.3 UM3 (9.4-12.4); MONOCYTES # (AUTO) 0.6 T/MM3 (0-0.8); NEUTROPHILS #(AUTO)-ABSOLUTE 3.1 T/MM3 (1.8-7.7); NEUTROPHILS % (AUTO) 62.1 % (33-66); RED BLOOD COUNT 2.83 M/MM3 (4.00-5.20)
[2016-07-03 05:29] LABS: ALBUMIN/GLOBULIN RATIO 1.1 RATIO (1.1-2.2); ALKALINE PHOSPHATASE 45 U/L (38-126); ALT (SGPT) 25 U/L (9-52); ANION GAP 14 MEQ/L (5-15); AST (SGOT) 27 U/L (14-36); BUN/CREATININE RATIO 16 RATIO (6-26); CALCIUM 8.7 MG/DL (8.4-10.2); CHLORIDE 106 MEQ/L (98-107); CO2 - CARBON DIOXIDE 24 MEQ/L (22-30); CREATININE 1.2 MG/DL (0.7-1.2); GLOMERULAR FILTRATION RATE 43; GLUCOSE 109 MG/DL (65-110); POTASSIUM 4.2 MEQ/L (3.6-5); SODIUM 144 MEQ/L (134-144); TOTAL PROTEIN 5.7 G/DL (6.3-8.2)
--- NOTE | 2016-07-03 05:50 | NUR ---
Pt was very drowsy during the first half of the shift. Pt woke up and crocheted for awhile then was able to sleep again. Pt was up to the bathroom and had a difficult time getting back to bed. Pt used the BSC the next time. Pt continues to have a difficult time getting out of and back into bed.
[2016-07-03] MEDS: LEVOTHYROXINE 112 MCG TABLET PO SCH (06:37)
[2016-07-03] MEDS: CEFTRIAXONE 1 G in NORMAL SALINE 100 ML IV SCH (09:32)
[2016-07-03] MEDS: NORMAL SALINE 500 ML IV SCH (09:32)
--- NOTE | 2016-07-03 10:45 | NUR ---
Midline status RN requested midline be evaluated as site is red. Pt's arm around midline insertion site noted to have some bruising and dependent edema. Used ultrasound to assess site. Able to visualize catheter in vein. Site flushes and aspirates easily. Enc nurse to notify provider and cont to evaluate.
[2016-07-03] MEDS: BUMETANIDE 0.5 MG TABLET PO SCH ×2 (10:54→15:05)
[2016-07-03] MEDS: RIFAXIMIN 550 MG TABLET PO SCH ×2 (10:54→22:16)
[2016-07-03] MEDS: PRAMIPEXOLE 1 MG TABLET PO SCH (10:55)
[2016-07-03] MEDS: AMIODARONE 200 MG TABLET PO SCH (10:55)
[2016-07-03] MEDS: SERTRALINE 100 MG TABLET PO SCH (10:55)
[2016-07-03] MEDS: DIVALPROEX 500 MG TABLET PO SCH (10:56)
[2016-07-03] MEDS: ATENOLOL 50 MG TABLET PO SCH (10:56)
[2016-07-03] MEDS: MIRABEGRON 25 MG TABLET PO SCH (10:57)
[2016-07-03] MEDS: PredniSONE 5 MG TABLET PO SCH (10:57)
[2016-07-03] MEDS: PANTOPRAZOLE 40mg INJECTION IV SCH (11:09)
--- NOTE | 2016-07-03 13:27 | NUR ---
CM THIS WORKER MET WITH PT ON THIS DATE. PT WAS LAYING IN BED AND WAS ABLE TO RECALL THIS WORKER FROM PREVIOUS VISIT. THIS WORKER DISCUSSED DISCHARGE PLANNING AT THIS TIME. PT REPORTED THAT SHE DIDN'T THINK THAT SHE WOULD BE ABLE TO RETURN TO HER ASSISTED LIVING ROOM AT [facility] RIGHT AWAY. PT REPORTED THAT SHE THINKS THAT SHE MIGHT NEED TO GO TO REHAB WHEN SHE IS READY TO [place] [facility] [place] THIS WORKER SPOKE TO [facility] AT ON THIS DATE AND THEY WILL HAVE AN OPENING FOR PT IN RETIREMENT WHEN SHE IS READY FOR DISCHARGE. PT REPORTED THAT SHE HAS BEEN IN TOUCH WITH HER FAMILY AND DECLINED NEEDING HELP IN CONTACTING THEM. THIS WORKER WILL CONTINUE FOLLOW ALONG AND ASSIST IN DISCHARGE PLANNING.
--- NOTE | 2016-07-03 17:00 | NUR ---
Midline Site appears sl redder than earlier. Dressing changed and skin appears to be bruised rather than red. Area on non-bruising noted under biopatch. Vicki Christian APRN at bedside. Discussed with her and Dr Brown. Pt has few other options for IV access. Will cont site for now and cont to monitor.
--- NOTE | 2016-07-03 18:43 | NUR ---
MIDLINE INFORMED DARRICK GLEASON APRN OF DECREASED URINE OUTPUT AND DISCUSSED PT'S MIDLINE STATUS WITH DR. BARCENAS AND POLLO GRAMAJO RN. WILL CONTINUE TO MONITOR AFTER MIDLINE DRESSING CHANGE.
--- NOTE | 2016-07-03 18:44 | NUR ---
PROGRESS NOTE PT RESTING IN RECLINER AT BEDSIDE AT THIS TIME. PT IS ALERT AND ORIENTED X3. VITAL SIGNS STABLE, ON 1.5L OF O2. PT IS A X1-2 ASSIST FOR TRANSFERS AND IS UNSTEADY ON FEET. PT HAS HAD POOR APPETITE THIS SHIFT AND IS ENCOURAGED BY THIS RN WITH PO FLUID INTAKE. PT HAS HAD A MIDLINE DRESSING CHANGE THIS SHIFT AND TOLERATED WELL. REDNESS AND BRUISING NOTED AROUND THE PT'S MIDLINE, DR. BARCENAS AND DARRICK GLEASON APRN NOTIFIED. PT HAS HAD DECREASED URINE OUTPUT THIS SHIFT, NO FURTHER ORDER RECEIVED. PT HAS REQUIRED TWO DOSES OF NORCO THIS SHIFT FOR INCREASED BACK PAIN. NO OTHER CONCERNS NOTED. WILL CONTINUE TO MONITOR.
--- NOTE | 2016-07-03 19:48 | PNPDOC ---
Subjective Date DATE: 07/03/16 TIME: 19:37 Subjective Patient tolerated diet, rested well. Did have pain at infusion site, with redness of arm. PICC line was removed midline was placed on left side and today redness developed around the midline side as well. No fever or chills Objective Vital Signs Vital signs Vital Signs Date Time Temp Pulse Resp B/P Pulse Ox O2 Delivery O2 Flow Rate FiO2 07/03/16 16:04 98.0 59 20 123/59 99 Nasal Cannula 3.00 Height (Feet): 5 Height (Inches): 3.00 Weight (Kilograms): 99.800 General General Appearance: Alert, Orientated x 3 Respiratory (Brief) Respiratory: FOUND: clear all echols, equal bilaterally, NOT FOUND: rales, tenderness, wheezes Cardiovascular (Brief) Cardiac: FOUND: pedal edema (trace), regular rate, regular rhythm Capillary Refill: <2 sec Laboratory Laboratory Laboratory Tests 07/02/16 04:29 07/03/16 04:20 Laboratory Tests 07/01/16 22:37 07/02/16 04:29 07/02/16 09:38 07/02/16 16:01 07/03/16 04:20 Microbiology Microbiology Microbiology Date/Time Source Procedure Growth Status 07/02/16 16:01 Cath/Port/Line/Picc Blood Culture - Preliminary NO GROWTH AFTER 24 HOURS Resulted Assessment & Plan Problems: (1) Sepsis Status: Acute Assessment & Plan: Magnifications of sepsis include the following- 1. UTI 2. Elevated Lactate- 2.5 3. Tachypneic 28/min (2) Anemia Status: Acute Assessment & Plan: July angiogram ordered for recheck, anemia stable. We'll review hemoglobin prior to leaving [facility]. (3) Thrombocythemia Status: Chronic Assessment & Plan: Likely chronic (4) UTI (lower urinary tract infection) Status: Acute Assessment & Plan: Acute (5) HTN (hypertension) Status: Chronic (6) GERD (gastroesophageal reflux disease) Status: Chronic (7) Hypothyroidism Status: Chronic (8) Depression Status: Chronic (9) Osteoarthritis Status: Chronic (10) CHF following non-cardiac surgery, postop Status: Chronic (11) Anticoagulated Status: Chronic (12) Cirrhosis Status: Chronic (13) Paroxysmal atrial fibrillation Status: Chronic (14) CKD (chronic kidney disease), stage III Status: Chronic (15) Chronic back pain Status: Chronic (16) Invasive ductal carcinoma of breast, stage 2 Onset Date: ~ 2006 Status: Chronic Assessment & Plan: 07/03/16 Anemia -- acute on chronic-hgb decreased slightly this am. Recheck this evening. Pt feeling better, with more strength. GI bleed -Appears stable, rechecking cbc this evening. Sepsis -with elevated lactate-resolved Perfusion issues-- PICC line removed right arm and Midline in left. However, skin changes with redness and "heat" of skin reoccurred on left. Pt is post mastectomy left, but unlikely to contribute and unlikely to be cellulitis due to nl wbc and equal reaction on both sides with line. Likely reaction to sheath or med. Follow tonight and reeval in am, warm compress. Spoke with perfusion nurse. [id number] to Rocephin, cont with IV meds. Paroxysmal A. fib for which she is on eliquis- HELD. CHF-EF 55% Chronic kidney disease Hypertension Chronic pain on chronic narcotics Chronic prednisone use Dementia Hypothyroidism Mild hyperkalemia-resolved Cirrhosis secondary to WU-continue rifaximin Assessment 07/03/16 Anemia -- acute on chronic-hgb decreased slightly this am. Recheck this evening. Pt feeling better, with more strength. GI bleed -Appears stable, rechecking cbc this evening. Sepsis -with elevated lactate-resolved Perfusion issues-- PICC line removed right arm and Midline in left. However, skin changes with redness and "heat" of skin reoccurred on left. Pt is post mastectomy left, but unlikely to contribute and unlikely to be cellulitis due to nl wbc and equal reaction on both sides with line. Likely reaction to sheath or med. Follow tonight and reeval in am, warm compress. Spoke with perfusion nurse. [id number] to Rocephin, cont with IV meds. Paroxysmal A. fib for which she is on eliquis- HELD. CHF-EF 55% Chronic kidney disease Hypertension Chronic pain on chronic narcotics Chronic prednisone use Dementia Hypothyroidism Mild hyperkalemia-resolved Cirrhosis secondary to WU-continue rifaximin Code Status Do Not Resuscitate Hospital Course Summary Disclaimer The hospital course summary below is not to be considered part of the above Progress Note. Hospital Course Summary 06/30 Admit patient to inpatient status under the care of Dr Burroughs for Sepsis with UTI and Anemia Patient started on Rocephin 1 mg IV while in the ER. Will continue with daily dosing. Urine and blood cultures pending. Follow serial lactate levels as per sepsis protocol. Patient is type, screen and crossmatched for 1 unit of packed red blood cells transfusion given anemia. Patient is chronically on Eliquis for chronic atrial fibrillation. She denies having black stools and attributes some red stools to Hemorrhoids Surgical consultation by Dr. Winters In light of anemia. Patient may have clear liquid diet now. Will follow platelet count as patient does have thrombocytopenia, however, this appears to be chronic. She does see Dr. Zuniga for chronic anemia since her breast cancer in 2008. Plt count in in 80-90's. Will obviously need to hold all anticoagulation given anemia with probably Gi bleeding. CHADS2 score 5.9% (moderate risk) SCDs to bilateral lower ext for DVT prophylaxis Will need to discuss and review all home medications with attending, Dr Burroughs. Recheck CBC and a BMP tomorrow morning to follow blood counts, renal function, electro-lites. At time of discharge medical care will return to primary care provider, Dr. Taveras 06/30/2016-I reviewed this chart, the patient history, and the IT [employer]INE[employer]'s/PA's documented findings as above. We discussed and formulated the assessment and plan as above with the additions below.-Dr. Burroughs Patient was seen and examined independently in the CCU this afternoon. She states she is feeling progressively more fatigued over the past 2-3 days. She's developed shortness of breath with activities. She also has a fullness and tenderness in her abdomen. She has had no fevers, chills or sweats. She has had some occasional dysuria. She's not had any nausea or vomiting. She has normally brown colored stools but has had some red blood which she attributes to hemorrhoids. She is not able to give herself the suppositories to help with hemorrhoids has of shoulder pains. This morning her hemoglobin was 6.2. She chronically has anemia with hemoglobin in the 9.3 range. She had vitamin B-12 and folate levels checked here in May and they were normal. The patient also has history of unknown type of liver disease for which she sees Dr. Cade. She is on Xifaxan she is on prednisone chronically for knee pains and back pain. On exam she is alert and oriented 3 and in no acute distress. She has received 1 unit of blood. Currently heart rate is 60 and O2 sat is 94% on room air. HEENT reveals sclerae to be anicteric and oropharynx is moist. Neck is supple. Chest is clear to auscultation. Cardiovascular reveals a regular rate and rhythm. Abdomen is soft and mildly tender in the epigastrium. Abdomen is mildly distended. Bowel sounds are normoactive. Extremities are free of clubbing cyanosis or edema. Lab work was reviewed. Lactate was elevated at 2.5 this morning and on repeat is 1.6. Pro-calcitonin 0.05. TSH is elevated at 10.8. Impression Anemia chronic with acute worsening GI bleed with bright red blood likely from hemorrhoids which is chronic, cannot rule out an acute upper or lower GI bleed Abdominal pain Sepsis -with elevated lactate, improved UTI-start Rocephin History of liver disease-possible cirrhosis-continue rifaximin Paroxysmal A. fib for which she is on eliquis-this will be on hold for gi bleed. Continue amiodarone and atenolol CHF-EF 55% Chronic kidney disease Hypertension Chronic pain on chronic narcotics Chronic prednisone use Dementia Hypothyroidism Patient was admitted to CCU. With her chronic anemia we'll go ahead and give 2 units of blood today. PICC line is being placed for poor IV access. B-12 and folate were normal last month. We'll check iron studies. Dr. Winters has been consulted and plans for EGD tomorrow. We'll place the patient on proton pump inhibitor IV. Will obtain serial hemoglobin will stay 2 units ahead. Will continue usual steroids but keep in mind she may need stress dose steroids if she has any worsening. Regarding UTI with elevated lactate, Rocephin has been started and the patient was given IV fluids. Lactate has normalized. The patient will remain here in CCU for close monitoring overnight. 07/01/2016 Impression Anemia or acute on chronic-improved post transfusion of 2 units of blood yesterday GI bleed with bright red blood likely from hemorrhoids which is chronic, await results of EGD Abdominal pain Sepsis -with elevated lactate, improved UTI-start Rocephin-GNR in urine History of liver disease-possible cirrhosis-continue rifaximin Paroxysmal A. fib for which she is on eliquis-this will be on hold for gi bleed. Continue amiodarone and atenolol CHF-EF 55% Chronic kidney disease Hypertension Chronic pain on chronic narcotics Chronic prednisone use Dementia Hypothyroidism Mild hyperkalemia-should improve with Bumex Continue serial hemoglobins. Restart Bumex. DC IV fluids. Discuss with Dr. Winters later today regarding EGD results and whether or not colonoscopy is needed. Patient states she underwent a colonoscopy in the summer of 2015 at the [facility] and we will try to obtain results. Creatinine has improved from yesterday with IV fluids. PT and OT eval. Continue to hold anticoagulation. SCDs for DVT prophylaxis. 07/03/16 Anemia -- acute on chronic-hgb decreased slightly this am. Recheck this evening. Pt feeling better, with more strength. GI bleed -Appears stable, rechecking cbc this evening. Sepsis -with elevated lactate-resolved Perfusion issues-- PICC line removed right arm and Midline in left. However, skin changes with redness and "heat" of skin reoccurred on left. Pt is post mastectomy left, but unlikely to contribute and unlikely to be cellulitis due to nl wbc and equal reaction on both sides with line. Likely reaction to sheath or med. Follow tonight and reeval in am, warm compress. Spoke with perfusion nurse. [id number] to Rocephin, cont with IV meds. Paroxysmal A. fib for which she is on eliquis- HELD. CHF-EF 55% Chronic kidney disease Hypertension Chronic pain on chronic narcotics Chronic prednisone use Dementia Hypothyroidism Mild hyperkalemia-resolved Cirrhosis secondary to WU-continue rifaximin TREY ORTIZ MD Jul 03, 2016 19:42
[2016-07-03 20:15] LABS: EOSINOPHILS % (AUTO) 0.8 % (0-4); HCT - HEMATOCRIT 26.6 % (36-46); HGB - HEMOGLOBIN 7.5 GM/DL (12-16); IMMATURE GRANULOCYTE # (AUTO) 0.01 T/MM3 (0.00-0.03); IMMATURE GRANULOCYTE % (AUTO) 0.2 % (0.0-0.5); LYMPHOCYTES # (AUTO) 1.1 T/MM3 (1-4.8); LYMPHOCYTES % (AUTO) 22.8 % (23-45); MEAN CORPUSCULAR HGB 26.3 UUG (26-34); MEAN CORPUSCULAR HGB CONC(MCHC 28.2 GM/DL (31-37); MEAN CORPUSCULAR VOLUME 93.3 UM3 (80-100); MEAN PLATELET VOLUME 11.8 UM3 (9.4-12.4); MONOCYTES # (AUTO) 0.3 T/MM3 (0-0.8); MONOCYTES % (AUTO) 7.1 % (0-9.0); NEUTROPHILS #(AUTO)-ABSOLUTE 3.3 T/MM3 (1.8-7.7); NEUTROPHILS % (AUTO) 69.1 % (33-66); RED BLOOD COUNT 2.85 M/MM3 (4.00-5.20); WBC - WHITE BLOOD COUNT 4.8 T/MM3 (4.5-11.0)
[2016-07-03 21:25] LABS: ANION GAP 10 MEQ/L (5-15); BUN/CREATININE RATIO 17 RATIO (6-26); CALCIUM 8.5 MG/DL (8.4-10.2); CHLORIDE 106 MEQ/L (98-107); CO2 - CARBON DIOXIDE 27 MEQ/L (22-30); CREATININE 1.2 MG/DL (0.7-1.2); GLOMERULAR FILTRATION RATE 43; GLUCOSE 168 MG/DL (65-110); POTASSIUM 4.3 MEQ/L (3.6-5); SODIUM 143 MEQ/L (134-144)
[2016-07-03] MEDS: MELATONIN 5 MG TABLET PO SCH (22:17)
[2016-07-03] MEDS: DONEPEZIL 5 MG TABLET PO SCH (22:17)
--- NOTE | 2016-07-03 23:04 | PNF ---
DATE 07/03/2016 FINDINGS Mrs. Liu today states that she continues to feel quite weak and fatigued. States that she was so weak today that she had a difficult time getting out of bed. States that she did need assistance. EXAM Vitals: Afebrile, normotensive. Last recorded vitals include temperature 97.5, pulse 60, respirations 18, blood pressure 130/63, SAO2 99% on 1.5 liters. CHEST: Clear to auscultation bilaterally. HEART: Regular rate and rhythm. Normal S1 and S2 without gallops, murmurs or clicks. ABDOMEN: Palpation of the abdomen reveals it to be soft and nontender. I do not appreciate any evidence for hepatosplenomegaly nor abnormal masses. LABORATORY/RADIOGRAPHIC EVALUATION CBC was obtained today and overall her hemoglobin is stable at 7.6. Yesterday her hemoglobin was 7.9. CMP was obtained today and found to be overall within normal limits. BUN is slightly elevated at 19.0. ASSESSMENT 80-year-old female with multiple medical comorbidities who was found to have marked anemia upon laboratory evaluation. Patient status post EGD and colonoscopy. Overall, patient is stable from a surgical standpoint. PLAN Will await her pathology results from yesterday's colonoscopy. Patient was not found to have active GI source for her anemia. Will continue to follow along in the patient's care and will likely sign off within the next 24-[address] [facility]
[2016-07-04] VITALS (7 sets, daily range): BP systolic 117–147; BP diastolic 46–62; PULSE 60–69; RESP 12–20; TEMP 96.5–97.9; O2SAT 92–98
--- NOTE | 2016-07-04 05:33 | NUR ---
PROVIDER NOTIFICATION Notified Dr. Santillan via [employer] that patient was reporting "torso heaviness". Patient denied chest pain and shortness of air. Vital signs were stable. Dr. Santillan directed to continue monitoring patient. Will continue to monitor.
[2016-07-04] MEDS: LEVOTHYROXINE 112 MCG TABLET PO SCH (06:25)
[2016-07-04 07:42] LABS: BASOPHILS % (AUTO) 0.2 % (0-2); EOSINOPHILS # (AUTO) 0.1 T/MM3 (0-0.5); EOSINOPHILS % (AUTO) 2.1 % (0-4); HCT - HEMATOCRIT 27.7 % (36-46); IMMATURE GRANULOCYTE # (AUTO) 0.01 T/MM3 (0.00-0.03); IMMATURE GRANULOCYTE % (AUTO) 0.2 % (0.0-0.5); LYMPHOCYTES # (AUTO) 1.4 T/MM3 (1-4.8); LYMPHOCYTES % (AUTO) 29.6 % (23-45); MEAN CORPUSCULAR HGB 26.8 UUG (26-34); MEAN CORPUSCULAR HGB CONC(MCHC 28.9 GM/DL (31-37); MEAN CORPUSCULAR VOLUME 92.6 UM3 (80-100); MEAN PLATELET VOLUME 11.2 UM3 (9.4-12.4); MONOCYTES # (AUTO) 0.4 T/MM3 (0-0.8); MONOCYTES % (AUTO) 8.2 % (0-9.0); NEUTROPHILS #(AUTO)-ABSOLUTE 2.8 T/MM3 (1.8-7.7); NEUTROPHILS % (AUTO) 59.7 % (33-66); RED BLOOD COUNT 2.99 M/MM3 (4.00-5.20); WBC - WHITE BLOOD COUNT 4.7 T/MM3 (4.5-11.0)
--- NOTE | 2016-07-04 07:44 | NUR ---
SHIFT SUMMARY PATIENT IS ALERT AND ORIENTED X3 THIS SHIFT. VITAL SIGNS HAVE BEEN STABLE. PATIENT BEGAN SHIFT OF 1.5L NC, BUT LATER IN THE SHIFT REMOVED O2 AND WAS READING 97 RA, SO O2 WAS LEFT OFF. PATIENT STANDS AND PIVOTS OKAY WITH ASSIST X1, BUT SHOULD HAVE ASSIST X2 FOR AMBULATION. PATIENT HAD AN EPISODE OF "TORSO HEAVINESS" EARLY THIS MORNING. NO CHEST PAIN WAS REPORTED AND VITAL SIGNS WERE STABLE. WAS CONTACTED AND I WAS DIRECTED TO MONITOR. WE REMOVED BLANKETS AND ELEVATED THE HEAD OF THE BED, AND THE PATIENT REPORTED INCREASED COMFORT. PATIENT REPORTED NO FURTHER DISCOMFORT. WILL CONTINUE TO MONITOR.
[2016-07-04 07:50] LABS: ANION GAP 11 MEQ/L (5-15); BUN/CREATININE RATIO 20 RATIO (6-26); CALCIUM 8.7 MG/DL (8.4-10.2); CHLORIDE 107 MEQ/L (98-107); CO2 - CARBON DIOXIDE 28 MEQ/L (22-30); GLOMERULAR FILTRATION RATE 53; GLUCOSE 106 MG/DL (65-110); POTASSIUM 3.7 MEQ/L (3.6-5); SODIUM 146 MEQ/L (134-144)
[2016-07-04] MEDS: PredniSONE 5 MG TABLET PO SCH (08:25)
[2016-07-04] MEDS: AMIODARONE 200 MG TABLET PO SCH (08:25)
[2016-07-04] MEDS: PRAMIPEXOLE 1 MG TABLET PO SCH (08:26)
[2016-07-04] MEDS: DIVALPROEX 500 MG TABLET PO SCH (08:26)
[2016-07-04] MEDS: BUMETANIDE 0.5 MG TABLET PO SCH ×2 (08:26→13:20)
[2016-07-04] MEDS: MIRABEGRON 25 MG TABLET PO SCH (08:27)
[2016-07-04] MEDS: SERTRALINE 100 MG TABLET PO SCH (08:27)
[2016-07-04] MEDS: RIFAXIMIN 550 MG TABLET PO SCH ×2 (08:27→21:01)
[2016-07-04] MEDS: ATENOLOL 50 MG TABLET PO SCH (08:27)
[2016-07-04] MEDS: CEFTRIAXONE 1 G in NORMAL SALINE 100 ML IV SCH (08:31)
[2016-07-04] MEDS: NORMAL SALINE 500 ML IV SCH (08:32)
[2016-07-04] MEDS: PANTOPRAZOLE 40mg INJECTION IV SCH (08:35)
--- NOTE | 2016-07-04 12:45 | PNPDOC ---
DARRICK GLEASON V ORTHOPHOTOGRAPHY TECHNICIAN 07/04/16 1231: Subjective Date DATE: 07/04/16 TIME: 12:27 Subjective Bhavna is seen this morning in follow up. She is up in the chair and currently on room air without evidence of distress. She complains of feeling weak and fatigued. Denies having any pain on examination. She does continue to have erythema to the bilateral upper arms around site of Midlines. Right line has been discontinued. Left line remains intact. No evidence of acute cellulitis/ infection. Blood pressure 127/60. Objective Vital Signs Vital signs Vital Signs Date Time Temp Pulse Resp B/P Pulse Ox O2 Delivery O2 Flow Rate FiO2 07/04/16 12:10 96.5 69 12 127/60 95 Room Air 07/03/16 20:35 1.50 Height (Feet): 5 Height (Inches): 3.00 Weight (Kilograms): 99.500 General General Appearance: Alert, Orientated x 3, Cooperative, No Acute Distress Eyes (Brief) Eyes: FOUND: EOMI ENMT (Brief) ENMT: FOUND: mucosa moist, normal dentition, NOT FOUND: pharnyx erythema Neck (Brief) Neck: FOUND: midline, NOT FOUND: adenopathy, carotid bruits, tracheal deviation Respiratory (Brief) Respiratory: FOUND: clear all echols, equal bilaterally, NOT FOUND: wheezes Cardiovascular (Brief) Cardiac: FOUND: regular rate, regular rhythm, NOT FOUND: murmur, pedal edema Capillary Refill: <2 sec Abdomen (Brief) Abdominal: FOUND: BS normo active x4, soft, NOT FOUND: distended, tender Extremities (Brief) Extremity : Side: Bilateral Extremity: arm Extremity Finding: FOUND: discoloration (bilaterall erythema to medial upper arms around midline sites.) Lymphatic (Brief) Lymphatic: NOT FOUND: adenopathy Musculoskeletal (Brief) Musculoskeletal: NOT FOUND: tenderness Integumentary (Brief) Integumentary: FOUND: dry, pink, warm Neurologic (Brief) Neurological: FOUND: cranial 2-12 intact Psychiatric (Brief) Psychiatric: FOUND: alert, attentive, normal affect, oriented Laboratory Laboratory Laboratory Tests 07/03/16 04:20 07/03/16 19:00 07/04/16 07:34 Laboratory Tests 07/02/16 16:01 07/03/16 04:20 07/03/16 19:47 07/04/16 07:34 Microbiology Microbiology Microbiology Date/Time Source Procedure Growth Status 07/02/16 16:01 Cath/Port/Line/Picc Blood Culture - Preliminary NO GROWTH AFTER 24 HOURS Resulted Assessment & Plan Problems: (1) Sepsis Status: Resolved Assessment & Plan: Magnifications of sepsis include the following- 1. UTI 2. Elevated Lactate- 2.5 3. Tachypneic 28/min (2) Anemia Status: Acute Assessment & Plan: July angiogram ordered for recheck, anemia stable. We'll review hemoglobin prior to leaving [facility]. (3) Thrombocythemia Status: Chronic Assessment & Plan: Likely chronic (4) UTI (lower urinary tract infection) Status: Acute Assessment & Plan: Acute (5) HTN (hypertension) Status: Chronic (6) GERD (gastroesophageal reflux disease) Status: Chronic (7) Hypothyroidism Status: Chronic (8) Depression Status: Chronic (9) Osteoarthritis Status: Chronic (10) CHF following non-cardiac surgery, postop Status: Chronic (11) Anticoagulated Status: Chronic (12) Cirrhosis Status: Chronic (13) Paroxysmal atrial fibrillation Status: Chronic (14) CKD (chronic kidney disease), stage III Status: Chronic (15) Chronic back pain Status: Chronic (16) Invasive ductal carcinoma of breast, stage 2 Onset Date: ~ 2006 Status: Chronic Plan/Intensity of Service 07/04/16 Today is day 5 of IV Rocephin for treatment of urinary tract infection with presence of Enterobacter Cloacae. Continue on cardiac medications including amiodarone, Atenolol. Hgb remains stable at 8.0. Appreciate Dr Winters's involvement and colonoscopy. Pathology is pending. Continue Protonix IV daily for GI protection Chronic anticoagulation remains stopped given significant anemia and concern for GI bleeding Will consult PT/OT for to get her up and moving given weakness. We'll discuss further plan of care with attending, Dr Barcenas Code Status Do Not Resuscitate Hospital Course Summary Disclaimer The hospital course summary below is not to be considered part of the above Progress Note. Hospital Course Summary 06/30 Admit patient to inpatient status under the care of Dr Burroughs for Sepsis with UTI and Anemia Patient started on Rocephin 1 mg IV while in the ER. Will continue with daily dosing. Urine and blood cultures pending. Follow serial lactate levels as per sepsis protocol. Patient is type, screen and crossmatched for 1 unit of packed red blood cells transfusion given anemia. Patient is chronically on Eliquis for chronic atrial fibrillation. She denies having black stools and attributes some red stools to Hemorrhoids Surgical consultation by Dr. Winters In light of anemia. Patient may have clear liquid diet now. Will follow platelet count as patient does have thrombocytopenia, however, this appears to be chronic. She does see Dr. Zuniga for chronic anemia since her breast cancer in 2008. Plt count in in 80-90's. Will obviously need to hold all anticoagulation given anemia with probably Gi bleeding. CHADS2 score 5.9% (moderate risk) SCDs to bilateral lower ext for DVT prophylaxis Will need to discuss and review all home medications with attending, Dr Burroughs. Recheck CBC and a BMP tomorrow morning to follow blood counts, renal function, electro-lites. At time of discharge medical care will return to primary care provider, Dr. Taveras 06/30/2016-I reviewed this chart, the patient history, and the ORTHOPHOTOGRAPHY TECHNICIAN's/PA's documented findings as above. We discussed and formulated the assessment and plan as above with the additions below.-Dr. Burroughs Patient was seen and examined independently in the CCU this afternoon. She states she is feeling progressively more fatigued over the past 2-3 days. She's developed shortness of breath with activities. She also has a fullness and tenderness in her abdomen. She has had no fevers, chills or sweats. She has had some occasional dysuria. She's not had any nausea or vomiting. She has normally brown colored stools but has had some red blood which she attributes to hemorrhoids. She is not able to give herself the suppositories to help with hemorrhoids has of shoulder pains. This morning her hemoglobin was 6.2. She chronically has anemia with hemoglobin in the 9.3 range. She had vitamin B-12 and folate levels checked here in May and they were normal. The patient also has history of unknown type of liver disease for which she sees Dr. Cade. She is on Xifaxan she is on prednisone chronically for knee pains and back pain. On exam she is alert and oriented 3 and in no acute distress. She has received 1 unit of blood. Currently heart rate is 60 and O2 sat is 94% on room air. HEENT reveals sclerae to be anicteric and oropharynx is moist. Neck is supple. Chest is clear to auscultation. Cardiovascular reveals a regular rate and rhythm. Abdomen is soft and mildly tender in the epigastrium. Abdomen is mildly distended. Bowel sounds are normoactive. Extremities are free of clubbing cyanosis or edema. Lab work was reviewed. Lactate was elevated at 2.5 this morning and on repeat is 1.6. Pro-calcitonin 0.05. TSH is elevated at 10.8. Impression Anemia chronic with acute worsening GI bleed with bright red blood likely from hemorrhoids which is chronic, cannot rule out an acute upper or lower GI bleed Abdominal pain Sepsis -with elevated lactate, improved UTI-start Rocephin History of liver disease-possible cirrhosis-continue rifaximin Paroxysmal A. fib for which she is on eliquis-this will be on hold for gi bleed. Continue amiodarone and atenolol CHF-EF 55% Chronic kidney disease Hypertension Chronic pain on chronic narcotics Chronic prednisone use Dementia Hypothyroidism Patient was admitted to CCU. With her chronic anemia we'll go ahead and give 2 units of blood today. PICC line is being placed for poor IV access. B-12 and folate were normal last month. We'll check iron studies. Dr. Winters has been consulted and plans for EGD tomorrow. We'll place the patient on proton pump inhibitor IV. Will obtain serial hemoglobin will stay 2 units ahead. Will continue usual steroids but keep in mind she may need stress dose steroids if she has any worsening. Regarding UTI with elevated lactate, Rocephin has been started and the patient was given IV fluids. Lactate has normalized. The patient will remain here in CCU for close monitoring overnight. 07/01/2016 Impression Anemia or acute on chronic-improved post transfusion of 2 units of blood yesterday GI bleed with bright red blood likely from hemorrhoids which is chronic, await results of EGD Abdominal pain Sepsis -with elevated lactate, improved UTI-start Rocephin-GNR in urine History of liver disease-possible cirrhosis-continue rifaximin Paroxysmal A. fib for which she is on eliquis-this will be on hold for gi bleed. Continue amiodarone and atenolol CHF-EF 55% Chronic kidney disease Hypertension Chronic pain on chronic narcotics Chronic prednisone use Dementia Hypothyroidism Mild hyperkalemia-should improve with Bumex Continue serial hemoglobins. Restart Bumex. DC IV fluids. Discuss with Dr. Witners later today regarding EGD results and whether or not colonoscopy is needed. Patient states she underwent a colonoscopy in the summer of 2015 at the [facility] and we will try to obtain results. Creatinine has improved from yesterday with IV fluids. PT and OT eval. Continue to hold anticoagulation. SCDs for DVT prophylaxis. 07/03/16 Anemia -- acute on chronic-hgb decreased slightly this am. Recheck this evening. Pt feeling better, with more strength. GI bleed -Appears stable, rechecking cbc this evening. Sepsis -with elevated lactate-resolved Perfusion issues-- PICC line removed right arm and Midline in left. However, skin changes with redness and "heat" of skin reoccurred on left. Pt is post mastectomy left, but unlikely to contribute and unlikely to be cellulitis due to nl wbc and equal reaction on both sides with line. Likely reaction to sheath or med. Follow tonight and reeval in am, warm compress. Spoke with perfusion nurse. HSR-[id number] to Rocephin, cont with IV meds. Paroxysmal A. fib for which she is on eliquis- HELD. 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 Continue on cardiac medications including amiodarone, Atenolol. Hgb remains stable at 8.0. Appreciate Dr Winters's involvement and colonoscopy. Pathology is pending. Continue Protonix IV daily for GI protection Chronic anticoagulation remains stopped given significant anemia and concern for GI bleeding Will consult PT/OT for to get her up and moving given weakness. We'll discuss further plan of care with attending, TREY Ewing MD 07/04/161913: Assessment & Plan Plan/Intensity of Service Chart reviewed, plan discussed with ORTHOPHOTOGRAPHY TECHNICIAN, in agreement with plan. I did see and evaluate the patient in person. Subjective, patient up in chair, ambulating without dyspnea, no diarrhea. Objective lungs are clear to auscultation, abdomen nontender, no noted cellulitis on left arm at site of midline although arm does remain red. Plan is to continue Rocephin to cover UTI. Following hemoglobin which has changed trend to increase. GI prophylaxis continued, labs ordered for DARRICK Ziegler M.D., V ORTHOPHOTOGRAPHY TECHNICIAN Jul 04, 2016 12:31 TREY BARCENAS MD Jul 04, 2016 19:14
--- NOTE | 2016-07-04 15:50 | NUR ---
CURTIS THIS WORKER CALLED AND SPOKE TO THEA AT [facility]. [facility] ABLE TO TAKE PT FOR SNF ON 07/05/16 IF READY FOR DISCHARGE. CALL [place] [phone] AT TIME OF DISCHARGE TO ARRANGE TRANSPORTATION.
--- NOTE | 2016-07-04 18:27 | NUR ---
SHIFT SUMMARY PT ALERT AND ORIENTED X3 THIS SHIFT. PT'S VITAL SIGNS STABLE ON ROOM AIR THROUGHOUT SHIFT. PT HAD A MODERATE SOFT BM THIS AM. PT TRANSFERS TO THE COMMODE/CHAIR WITH ASSIST X1-2, WALKER AND GAIT BELT. PT/OT CONSULTS PLACED THIS SHIFT FOR WEAKNESS. PT'S HEMOGLOBIN HAS REMAINED STABLE TODAY AT 8.0. PT DENIES DIZZINESS, SOA, CHEST PAIN. PT HAD AN ADEQUATE APPETITE AT ALL MEALS TODAY. ADEQUATE URINARY OUTPUT OBTAINED. PT UP TO CHAIR FOR MEALS. PT IN BED AT THIS TIME. HOB ELEVATED. BED ALARM ON. WILL CONTINUE TO MONITOR CLOSELY.
--- NOTE | 2016-07-04 19:32 | PNF ---
DATE OF SERVICE 07/04/2016 FINDINGS Ms. Liu this evening was in good spirits. She denied any element of abdominal pain. PHYSICAL EXAMINATION VITAL SIGNS: Afebrile. Normotensive. Vitals include temperature 97.7, pulse 60, respirations 20, blood pressure 123/62, SaO2 93% on room air. CHEST: Clear to auscultation bilaterally. HEART: Regular rate and rhythm. Normal S1 and S2 without gallops, murmurs or clicks. ABDOMEN: Palpation of the abdomen reveals it to be soft and nontender. I do not appreciate any evidence for hepatosplenomegaly nor abnormal masses. 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 Margins were indeterminate. 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 Margins indeterminate. PLAN I informed the patient that typically in this type of situation I would recommend proceeding with a right hemicolectomy. Given her age and significant medical comorbidities, I do believe that she is at a very high operative risk. It was, therefore, my recommendation in regards to this intramucosal adenocarcinoma with indeterminate margins that we perform short-term endoscopic followup. Recommended to the patient and her son, Isra Liu, that we repeat a colonoscopy somewhere between three to six months as a short-term followup. Patient and her family agreed with proposed plan. I do not plan on seeing the patient over the course of this holiday weekend from a surgical standpoint. If surgical care is needed, please contact Dr. Travis Monk. [facility]ITALJoi
[2016-07-04] MEDS: DONEPEZIL 5 MG TABLET PO SCH (21:01)
[2016-07-04] MEDS: MELATONIN 5 MG TABLET PO SCH (21:01)
[2016-07-05] VITALS (8 sets, daily range): BP systolic 128–147; BP diastolic 53–78; PULSE 60–62; RESP 14–20; TEMP 96.3–97.7; O2SAT 93–99
[2016-07-05] MEDS: MORPHINE SULFATE 2 MG SYRINGE IV PRN (00:49)
[2016-07-05 05:06] LABS: BASOPHILS % (AUTO) 0.3 % (0-2); EOSINOPHILS # (AUTO) 0.1 T/MM3 (0-0.5); EOSINOPHILS % (AUTO) 3.1 % (0-4); HCT - HEMATOCRIT 25.1 % (36-46); HGB - HEMOGLOBIN 7.1 GM/DL (12-16); IMMATURE GRANULOCYTE # (AUTO) 0.01 T/MM3 (0.00-0.03); IMMATURE GRANULOCYTE % (AUTO) 0.3 % (0.0-0.5); LYMPHOCYTES # (AUTO) 1.3 T/MM3 (1-4.8); LYMPHOCYTES % (AUTO) 32.8 % (23-45); MEAN CORPUSCULAR HGB 26.7 UUG (26-34); MEAN CORPUSCULAR HGB CONC(MCHC 28.3 GM/DL (31-37); MEAN CORPUSCULAR VOLUME 94.4 UM3 (80-100); MONOCYTES # (AUTO) 0.4 T/MM3 (0-0.8); MONOCYTES % (AUTO) 10.4 % (0-9.0); NEUTROPHILS % (AUTO) 53.1 % (33-66); RED BLOOD COUNT 2.66 M/MM3 (4.00-5.20); WBC - WHITE BLOOD COUNT 3.8 T/MM3 (4.5-11.0)
--- NOTE | 2016-07-05 05:40 | NUR ---
PROVIDER NOTIFICATION DR PAINTER NOTIFIED OF 0400 HGB AND INSTRUCTED THIS RN NOT TO TRANSFUSE AT THIS TIME. ORDERED A REPEAT HGB AT 1200. WILL CONTINUE TO MONITOR.
--- NOTE | 2016-07-05 05:52 | NUR ---
SHIFT SUMMARY PT ALERT AND ORIENTED X3, VITAL SIGNS REMAIN STABLE ON ROOM AIR, DENIES C/P,N/V AND SOA. PT TRANSFERS TO BEDSIDE COMMODE WITH A PIVOT X1 ASSIST. PT SLEPT A SHORT TIME THIS EVENING. ADEQUATE URINE OUTPUT. WILL CONTINUE TO MONITOR.
[2016-07-05] MEDS: LEVOTHYROXINE 112 MCG TABLET PO SCH (06:35)
[2016-07-05 08:17] LABS: HGB - HEMOGLOBIN 8.2 GM/DL (12-16)
[2016-07-05] MEDS: PANTOPRAZOLE 40mg INJECTION IV SCH (09:09)
[2016-07-05] MEDS: MIRABEGRON 25 MG TABLET PO SCH (09:09)
[2016-07-05] MEDS: BUMETANIDE 0.5 MG TABLET PO SCH ×2 (09:10→14:41)
[2016-07-05] MEDS: PredniSONE 5 MG TABLET PO SCH (09:10)
[2016-07-05] MEDS: PRAMIPEXOLE 1 MG TABLET PO SCH (09:10)
[2016-07-05] MEDS: DIVALPROEX 500 MG TABLET PO SCH (09:10)
[2016-07-05] MEDS: AMIODARONE 200 MG TABLET PO SCH (09:11)
[2016-07-05] MEDS: CEFTRIAXONE 1 G in NORMAL SALINE 100 ML IV SCH (09:11)
[2016-07-05] MEDS: SERTRALINE 100 MG TABLET PO SCH (09:11)
[2016-07-05] MEDS: RIFAXIMIN 550 MG TABLET PO SCH ×2 (09:11→22:06)
[2016-07-05] MEDS: ATENOLOL 50 MG TABLET PO SCH (09:11)
[2016-07-05] MEDS: NORMAL SALINE 500 ML IV SCH (09:12)
[2016-07-05 12:38] LABS: HGB - HEMOGLOBIN 7.4 GM/DL (12-16)
[2016-07-05] MEDS ORDERED: POTASSIUM CHLORIDE 20 MEQ TABLET PO ONE (14:00)
--- NOTE | 2016-07-05 14:40 | PNPDOC ---
Subjective Date DATE: 07/05/16 TIME: 14:31 Subjective The patient was seen this afternoon in her room. She was sleeping but awakened easily. She complains of low back pain and states that it is somewhat worse than usual. She states she's had a heaviness in her chest pretty consistently since prior to admission and it has continued throughout the hospital course. She has some mild shortness of breath especially with movement. She feels lightheaded when she sits up. She's had no further bloody stools. She is urinating okay. She is eating better. She has had oral iron in the past but thought it caused problems with her bowel movements. Objective Vital Signs Vital signs Vital Signs Date Time Temp Pulse Resp B/P Pulse Ox O2 Delivery O2 Flow Rate FiO2 07/05/16 12:35 96.8 60 20 128/53 93 Room Air 07/03/16 20:35 1.50 GEN-alert, oriented, no acute distress HEENT-clear anicteric, oropharynx is moist NECK-supple CV-regular rate and rhythm CHEST-clear to auscultation bilaterally posteriorly. The patient was able to roll from one side to the other side to allow me to listen to her back but this made her feel short of breath ABD-soft, mild tenderness throughout, no rebound or guarding, normal bowel sounds -no Pfeiffer EXT-no edema NEURO-no focal deficits SKIN-erythema in both arms at side of midline insertion on the left and previous PICC line insertion on the right, this does not look like cellulitis Height (Feet): 5 Height (Inches): 3.00 Weight (Kilograms): 100.000 Laboratory Laboratory Laboratory Tests 07/03/16 19:00 07/04/16 07:34 Laboratory Tests 07/03/16 19:47 07/04/16 07:34 07/05/16 04:13 07/05/16 08:03 07/05/16 12:20 Microbiology Microbiology Microbiology Date/Time Source Procedure Growth Status 07/02/16 16:01 Cath/Port/Line/Picc Blood Culture - Preliminary NO GROWTH AFTER 48 HOURS Resulted Assessment & Plan Problems: (1) Sepsis Status: Resolved Assessment & Plan: Magnifications of sepsis include the following- 1. UTI 2. Elevated Lactate- 2.5 3. Tachypneic 28/min (2) Anemia Status: Acute Assessment & Plan: May angiogram ordered for recheck, anemia stable. We'll review hemoglobin prior to leaving [facility]. (3) Thrombocythemia Status: Chronic Assessment & Plan: Likely chronic (4) UTI (lower urinary tract infection) Status: Acute Assessment & Plan: Acute (5) HTN (hypertension) Status: Chronic (6) GERD (gastroesophageal reflux disease) Status: Chronic (7) Hypothyroidism Status: Chronic (8) Depression Status: Chronic (9) Osteoarthritis Status: Chronic (10) CHF following non-cardiac surgery, postop Status: Chronic (11) Anticoagulated Status: Chronic (12) Cirrhosis Status: Chronic (13) Paroxysmal atrial fibrillation Status: Chronic (14) CKD (chronic kidney disease), stage III Status: Chronic (15) Chronic back pain Status: Chronic (16) Invasive ductal carcinoma of breast, stage 2 Onset Date: ~ 2006 Status: Chronic Assessment Severe sepsis secondary to UTI-resolved OSM-[id number] 6 of Rocephin Acute blood loss anemia on chronic anemia-secondary to GI blood loss from internal hemorrhoids and 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 Recheck vitals with patient sitting up, hemoglobin is somewhat labile. May need 1 more unit of blood Consider IV iron, possibly tomorrow Increase activity as tolerated Increase Mead 10-1 every 4-6 hours as needed Probably back to the shelter on Thursday DVT Prophylaxis: SCD'S Code Status Do Not Resuscitate Hospital Course Summary Disclaimer The hospital course summary below is not to be considered part of the above Progress Note. Hospital Course Summary 06/30 Admit patient to inpatient status under the care of Dr Burroughs for Sepsis with UTI and Anemia Patient started on Rocephin 1 mg IV while in the ER. Will continue with daily dosing. Urine and blood cultures pending. Follow serial lactate levels as per sepsis protocol. Patient is type, screen and crossmatched for 1 unit of packed red blood cells transfusion given anemia. Patient is chronically on Eliquis for chronic atrial fibrillation. She denies having black stools and attributes some red stools to Hemorrhoids Surgical consultation by Dr. Winters In light of anemia. Patient may have clear liquid diet now. Will follow platelet count as patient does have thrombocytopenia, however, this appears to be chronic. She does see Dr. Zuniga for chronic anemia since her breast cancer in 2008. Plt count in in 80-90's. Will obviously need to hold all anticoagulation given anemia with probably Gi bleeding. CHADS2 score 5.9% (moderate risk) SCDs to bilateral lower ext for DVT prophylaxis Will need to discuss and review all home medications with attending, Dr Burroughs. Recheck CBC and a BMP tomorrow morning to follow blood counts, renal function, electro-lites. At time of discharge medical care will return to primary care provider, Dr. Taveras 06/30/2016-I reviewed this chart, the patient history, and the INSOLE D[employer]BLER's/PA's documented findings as above. We discussed and formulated the assessment and plan as above with the additions below.-Dr. Burroughs Patient was seen and examined independently in the CCU this afternoon. She states she is feeling progressively more fatigued over the past 2-3 days. She's developed shortness of breath with activities. She also has a fullness and tenderness in her abdomen. She has had no fevers, chills or sweats. She has had some occasional dysuria. She's not had any nausea or vomiting. She has normally brown colored stools but has had some red blood which she attributes to hemorrhoids. She is not able to give herself the suppositories to help with hemorrhoids has of shoulder pains. This morning her hemoglobin was 6.2. She chronically has anemia with hemoglobin in the 9.3 range. She had vitamin B-12 and folate levels checked here in May and they were normal. The patient also has history of unknown type of liver disease for which she sees Dr. Cade. She is on Xifaxan she is on prednisone chronically for knee pains and back pain. On exam she is alert and oriented 3 and in no acute distress. She has received 1 unit of blood. Currently heart rate is 60 and O2 sat is 94% on room air. HEENT reveals sclerae to be anicteric and oropharynx is moist. Neck is supple. Chest is clear to auscultation. Cardiovascular reveals a regular rate and rhythm. Abdomen is soft and mildly tender in the epigastrium. Abdomen is mildly distended. Bowel sounds are normoactive. Extremities are free of clubbing cyanosis or edema. Lab work was reviewed. Lactate was elevated at 2.5 this morning and on repeat is 1.6. Pro-calcitonin 0.05. TSH is elevated at 10.8. Impression Anemia chronic with acute worsening GI bleed with bright red blood likely from hemorrhoids which is chronic, cannot rule out an acute upper or lower GI bleed Abdominal pain Sepsis -with elevated lactate, improved UTI-start Rocephin History of liver disease-possible cirrhosis-continue rifaximin Paroxysmal A. fib for which she is on eliquis-this will be on hold for gi bleed. Continue amiodarone and atenolol CHF-EF 55% Chronic kidney disease Hypertension Chronic pain on chronic narcotics Chronic prednisone use Dementia Hypothyroidism Patient was admitted to CCU. With her chronic anemia we'll go ahead and give 2 units of blood today. PICC line is being placed for poor IV access. B-12 and folate were normal last month. We'll check iron studies. Dr. Winters has been consulted and plans for EGD tomorrow. We'll place the patient on proton pump inhibitor IV. Will obtain serial hemoglobin will stay 2 units ahead. Will continue usual steroids but keep in mind she may need stress dose steroids if she has any worsening. Regarding UTI with elevated lactate, Rocephin has been started and the patient was given IV fluids. Lactate has normalized. The patient will remain here in CCU for close monitoring overnight. 07/01/2016 Impression Anemia or acute on chronic-improved post transfusion of 2 units of blood yesterday GI bleed with bright red blood likely from hemorrhoids which is chronic, await results of EGD Abdominal pain Sepsis -with elevated lactate, improved UTI-start Rocephin-GNR in urine History of liver disease-possible cirrhosis-continue rifaximin Paroxysmal A. fib for which she is on eliquis-this will be on hold for gi bleed. Continue amiodarone and atenolol CHF-EF 55% Chronic kidney disease Hypertension Chronic pain on chronic narcotics Chronic prednisone use Dementia Hypothyroidism Mild hyperkalemia-should improve with Bumex Continue serial hemoglobins. Restart Bumex. DC IV fluids. Discuss with Dr. Winters later today regarding EGD results and whether or not colonoscopy is needed. Patient states she underwent a colonoscopy in the summer of [address] [facility] and we will try to obtain results. Creatinine has improved from yesterday with IV fluids. PT and OT eval. Continue to hold anticoagulation. SCDs for DVT prophylaxis. 07/03/16 Anemia -- acute on chronic-hgb decreased slightly this am. Recheck this evening. Pt feeling better, with more strength. GI bleed -Appears stable, rechecking cbc this evening. Sepsis -with elevated lactate-resolved Perfusion issues-- PICC line removed right arm and Midline in left. However, skin changes with redness and "heat" of skin reoccurred on left. Pt is post mastectomy left, but unlikely to contribute and unlikely to be cellulitis due to nl wbc and equal reaction on both sides with line. Likely reaction to sheath or med. Follow tonight and reeval in am, warm compress. Spoke with perfusion nurse. [id number]-[id number] to Rocephin, cont with IV meds. Paroxysmal A. fib for which she is on eliquis- HELD. 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 Continue on cardiac medications including amiodarone, Atenolol. Hgb remains stable at 8.0. Appreciate Dr Winters's involvement and colonoscopy. Pathology is pending. Continue Protonix IV daily for GI protection Chronic anticoagulation remains stopped given significant anemia and concern for GI bleeding Will consult PT/OT for to get her up and moving given weakness. We'll discuss further plan of care with attending, CONNIE Escalante MD Jul 05, 2016 14:34
[2016-07-05 18:47] LABS: BLOOD, URINE 2+ (NEGATIVE); COLOR,URINE YELLOW (YELLOW); LEUKOCYTE ESTERASE ,URINE NEGATIVE (NEGATIVE); NITRITE,URINE NEGATIVE (NEGATIVE); UROBILINOGEN,URINE 0.2 EU/DL (NORMAL)
[2016-07-05 18:55] LABS: WBC,URINE NONE SEEN /HPF (0-5)
[2016-07-05 18:56] LABS: BACTERIA,URINE TRACE (NEGATIVE); SQUAMOUS EPITHELIAL CELL,UR 0-5; TRANSITIONAL EPI CELLS,URINE 0-1 /HPF
[2016-07-05] MEDS: DONEPEZIL 5 MG TABLET PO SCH (22:06)
[2016-07-05] MEDS: MELATONIN 5 MG TABLET PO SCH (22:06)
[2016-07-05 22:10] LABS: HGB - HEMOGLOBIN 8.4 GM/DL (12-16)
[2016-07-06] VITALS (15 sets, daily range): BP systolic 124–163; BP diastolic 56–67; PULSE 60–70; RESP 16–20; TEMP 95.5–98; O2SAT 94–97
[2016-07-06 05:12] LABS: BASOPHILS % (AUTO) 0.3 % (0-2); EOSINOPHILS # (AUTO) 0.1 T/MM3 (0-0.5); EOSINOPHILS % (AUTO) 2.2 % (0-4); HCT - HEMATOCRIT 29.8 % (36-46); HGB - HEMOGLOBIN 8.9 GM/DL (12-16); IMMATURE GRANULOCYTE # (AUTO) 0.01 T/MM3 (0.00-0.03); IMMATURE GRANULOCYTE % (AUTO) 0.3 % (0.0-0.5); LYMPHOCYTES % (AUTO) 26.5 % (23-45); MEAN CORPUSCULAR HGB 27.5 UUG (26-34); MEAN CORPUSCULAR HGB CONC(MCHC 29.9 GM/DL (31-37); MEAN PLATELET VOLUME 12.4 UM3 (9.4-12.4); MONOCYTES # (AUTO) 0.4 T/MM3 (0-0.8); MONOCYTES % (AUTO) 10.9 % (0-9.0); NEUTROPHILS #(AUTO)-ABSOLUTE 2.2 T/MM3 (1.8-7.7); NEUTROPHILS % (AUTO) 59.8 % (33-66); RED BLOOD COUNT 3.24 M/MM3 (4.00-5.20); WBC - WHITE BLOOD COUNT 3.7 T/MM3 (4.5-11.0)
[2016-07-06 05:20] LABS: ANION GAP 11 MEQ/L (5-15); BUN/CREATININE RATIO 21 RATIO (6-26); CALCIUM 8.7 MG/DL (8.4-10.2); CHLORIDE 109 MEQ/L (98-107); CO2 - CARBON DIOXIDE 26 MEQ/L (22-30); CREATININE 0.8 MG/DL (0.7-1.2); GLOMERULAR FILTRATION RATE 69; GLUCOSE 126 MG/DL (65-110); POTASSIUM 3.7 MEQ/L (3.6-5); SODIUM 146 MEQ/L (134-144)
--- NOTE | 2016-07-06 05:36 | NUR ---
SHIFT SUMMARY PT IS ALERT AND ORIENTEDX3, VITAL SIGNS ARE STABLE ON ROOM AIR. DENIES C/P,N/V AND SOA. PT RECEIVED 1 UNIT OF BLOOD ON THIS SHIFT HGB IS UP TO 8.9 AT 0400 LAB DRAW. PT MIDLINE WILL NO LONGER ALLOW FOR LAB DRAWS. FLUSHES WITHOUT PROBLEM. PT UP TO RECLINER ONCE ON SHIFT THEN BACK TO BED. PT HAS SLEPT SPORADICALLY ON THIS SHIFT. WILL CONTINUE TO MONITOR.
[2016-07-06] MEDS: LEVOTHYROXINE 112 MCG TABLET PO SCH (06:17)
[2016-07-06] MEDS: POTASSIUM CHLORIDE 20 MEQ TABLET PO SCH (08:35)
[2016-07-06] MEDS: DIVALPROEX 500 MG TABLET PO SCH (08:35)
[2016-07-06] MEDS: SERTRALINE 100 MG TABLET PO SCH (08:36)
[2016-07-06] MEDS: ATENOLOL 50 MG TABLET PO SCH (08:36)
[2016-07-06] MEDS: PredniSONE 5 MG TABLET PO SCH (08:36)
[2016-07-06] MEDS: RIFAXIMIN 550 MG TABLET PO SCH ×2 (08:36→20:44)
[2016-07-06] MEDS: AMIODARONE 200 MG TABLET PO SCH (08:36)
[2016-07-06] MEDS: BUMETANIDE 0.5 MG TABLET PO SCH ×2 (08:36→14:11)
[2016-07-06] MEDS: PRAMIPEXOLE 1 MG TABLET PO SCH (08:36)
[2016-07-06] MEDS: PANTOPRAZOLE 40mg INJECTION IV SCH (08:36)
[2016-07-06] MEDS: CEFTRIAXONE 1 G in NORMAL SALINE 100 ML IV SCH (08:36)
[2016-07-06] MEDS: MIRABEGRON 25 MG TABLET PO SCH (08:36)
--- NOTE | 2016-07-06 09:30 | NUR ---
PAIN PT REPORTS PAIN IN BACK, NECK AND LEGS. PRN NORCO GIVEN.
--- NOTE | 2016-07-06 13:09 | PNPDOC ---
DARRICK GLEASON V AIRPLANE PILOT 07/06/16 1309: Subjective Date DATE: 07/06/16 TIME: 13:04 Subjective Bhavna is seen this morning following breakfast. She is alert, oriented and pleasant up in the chair. She is comfortably breathing on room air and denies having any respiratory distress. Denies chest pain, or GI complaints. No difficulty with urination and bowels are moving regularly. Hemoglobin today 8.9. BP 128/65. Objective Vital Signs Vital signs Vital Signs Date Time Temp Pulse Resp B/P Pulse Ox O2 Delivery O2 Flow Rate FiO2 07/06/16 13:02 97.0 60 18 152/65 96 Room Air 07/03/16 20:35 1.50 Height (Feet): 5 Height (Inches): 3.00 Weight (Kilograms): 100.500 General General Appearance: Alert, Orientated x 3, Cooperative, No Acute Distress Eyes (Brief) Eyes: FOUND: EOMI ENMT (Brief) ENMT: FOUND: mucosa moist, normal dentition, NOT FOUND: pharnyx erythema Neck (Brief) Neck: FOUND: midline, NOT FOUND: adenopathy, carotid bruits, tracheal deviation Respiratory (Brief) Respiratory: FOUND: clear all echols, equal bilaterally, NOT FOUND: wheezes Cardiovascular (Brief) Cardiac: FOUND: regular rate, regular rhythm, NOT FOUND: murmur, pedal edema Capillary Refill: <2 sec Abdomen (Brief) Abdominal: FOUND: BS normo active x4, soft, NOT FOUND: distended, tender Lymphatic (Brief) Lymphatic: NOT FOUND: adenopathy Musculoskeletal (Brief) Musculoskeletal: NOT FOUND: tenderness Integumentary (Brief) Integumentary: FOUND: dry, pink, warm Neurologic (Brief) Neurological: FOUND: cranial 2-12 intact Psychiatric (Brief) Psychiatric: FOUND: alert, attentive, normal affect, oriented Laboratory Laboratory Laboratory Tests 07/06/16 04:38 Laboratory Tests 07/05/16 04:13 07/05/16 08:03 07/05/16 12:20 07/05/16 22:05 07/06/16 04:38 Assessment & Plan Problems: (1) Sepsis Status: Resolved Assessment & Plan: Magnifications of sepsis include the following- 1. UTI 2. Elevated Lactate- 2.5 3. Tachypneic 28/min (2) Anemia Status: Acute Assessment & Plan: May angiogram ordered for recheck, anemia stable. We'll review hemoglobin prior to leaving [facility]. (3) Thrombocythemia Status: Chronic Assessment & Plan: Likely chronic (4) UTI (lower urinary tract infection) Status: Acute Assessment & Plan: Acute (5) HTN (hypertension) Status: Chronic (6) GERD (gastroesophageal reflux disease) Status: Chronic (7) Hypothyroidism Status: Chronic (8) Depression Status: Chronic (9) Osteoarthritis Status: Chronic (10) CHF following non-cardiac surgery, postop Status: Chronic (11) Anticoagulated Status: Chronic (12) Cirrhosis Status: Chronic (13) Paroxysmal atrial fibrillation Status: Chronic (14) CKD (chronic kidney disease), stage III Status: Chronic (15) Chronic back pain Status: Chronic (16) Invasive ductal carcinoma of breast, stage 2 Onset Date: ~ 2006 Status: Chronic Assessment Severe sepsis secondary to UTI-resolved [id number] 7 of Rocephin Acute blood loss anemia on chronic anemia-secondary to GI blood loss from internal hemorrhoids and 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 Continue to monitor hemoglobin. Today, hemoglobin is 8.9 Consult placed with pharmacy for IV iron replacement for chronic anemia Today is day 7 of Rocephin for treatment of urinary tract infection. Can likely discontinue soon. Continue to encourage ambulation and activity Will recheck CBC and BMP to follow blood counts, renal function and electrolytes tomorrow. Hopeful for discharge in the near future Code Status Do Not Resuscitate Hospital Course Summary Disclaimer The hospital course summary below is not to be considered part of the above Progress Note. Hospital Course Summary 06/30 Admit patient to inpatient status under the care of Dr Burroughs for Sepsis with UTI and Anemia Patient started on Rocephin 1 mg IV while in the ER. Will continue with daily dosing. Urine and blood cultures pending. Follow serial lactate levels as per sepsis protocol. Patient is type, screen and crossmatched for 1 unit of packed red blood cells transfusion given anemia. Patient is chronically on Eliquis for chronic atrial fibrillation. She denies having black stools and attributes some red stools to Hemorrhoids Surgical consultation by Dr. Winters In light of anemia. Patient may have clear liquid diet now. Will follow platelet count as patient does have thrombocytopenia, however, this appears to be chronic. She does see Dr. Zuniga for chronic anemia since her breast cancer in 2008. Plt count in in 80-90's. Will obviously need to hold all anticoagulation given anemia with probably Gi bleeding. CHADS2 score 5.9% (moderate risk) SCDs to bilateral lower ext for DVT prophylaxis Will need to discuss and review all home medications with attending, Dr Burroughs. Recheck CBC and a BMP tomorrow morning to follow blood counts, renal function, electro-lites. At time of discharge medical care will return to primary care provider, Dr. Taveras 06/30/2016-I reviewed this chart, the patient history, and the AIRPLANE PILOT's/PA's documented findings as above. We discussed and formulated the assessment and plan as above with the additions below.-Dr. Burroughs Patient was seen and examined independently in the CCU this afternoon. She states she is feeling progressively more fatigued over the past 2-3 days. She's developed shortness of breath with activities. She also has a fullness and tenderness in her abdomen. She has had no fevers, chills or sweats. She has had some occasional dysuria. She's not had any nausea or vomiting. She has normally brown colored stools but has had some red blood which she attributes to hemorrhoids. She is not able to give herself the suppositories to help with hemorrhoids has of shoulder pains. This morning her hemoglobin was 6.2. She chronically has anemia with hemoglobin in the 9.3 range. She had vitamin B-12 and folate levels checked here in May and they were normal. The patient also has history of unknown type of liver disease for which she sees Dr. Cade. She is on Xifaxan she is on prednisone chronically for knee pains and back pain. On exam she is alert and oriented 3 and in no acute distress. She has received 1 unit of blood. Currently heart rate is 60 and O2 sat is 94% on room air. HEENT reveals sclerae to be anicteric and oropharynx is moist. Neck is supple. Chest is clear to auscultation. Cardiovascular reveals a regular rate and rhythm. Abdomen is soft and mildly tender in the epigastrium. Abdomen is mildly distended. Bowel sounds are normoactive. Extremities are free of clubbing cyanosis or edema. Lab work was reviewed. Lactate was elevated at 2.5 this morning and on repeat is 1.6. Pro-calcitonin 0.05. TSH is elevated at 10.8. Impression Anemia chronic with acute worsening GI bleed with bright red blood likely from hemorrhoids which is chronic, cannot rule out an acute upper or lower GI bleed Abdominal pain Sepsis -with elevated lactate, improved UTI-start Rocephin History of liver disease-possible cirrhosis-continue rifaximin Paroxysmal A. fib for which she is on eliquis-this will be on hold for gi bleed. Continue amiodarone and atenolol CHF-EF 55% Chronic kidney disease Hypertension Chronic pain on chronic narcotics Chronic prednisone use Dementia Hypothyroidism Patient was admitted to CCU. With her chronic anemia we'll go ahead and give 2 units of blood today. PICC line is being placed for poor IV access. B-12 and folate were normal last month. We'll check iron studies. Dr. Winters has been consulted and plans for EGD tomorrow. We'll place the patient on proton pump inhibitor IV. Will obtain serial hemoglobin will stay 2 units ahead. Will continue usual steroids but keep in mind she may need stress dose steroids if she has any worsening. Regarding UTI with elevated lactate, Rocephin has been started and the patient was given IV fluids. Lactate has normalized. The patient will remain here in CCU for close monitoring overnight. 07/01/2016 Impression Anemia or acute on chronic-improved post transfusion of 2 units of blood yesterday GI bleed with bright red blood likely from hemorrhoids which is chronic, await results of EGD Abdominal pain Sepsis -with elevated lactate, improved UTI-start Rocephin-GNR in urine History of liver disease-possible cirrhosis-continue rifaximin Paroxysmal A. fib for which she is on eliquis-this will be on hold for gi bleed. Continue amiodarone and atenolol CHF-EF 55% Chronic kidney disease Hypertension Chronic pain on chronic narcotics Chronic prednisone use Dementia Hypothyroidism Mild hyperkalemia-should improve with Bumex Continue serial hemoglobins. Restart Bumex. DC IV fluids. Discuss with Dr. Winters later today regarding EGD results and whether or not colonoscopy is needed. Patient states she underwent a colonoscopy in the summer of 2015 at the [facility] and we will try to obtain results. Creatinine has improved from yesterday with IV fluids. PT and OT eval. Continue to hold anticoagulation. SCDs for DVT prophylaxis. 07/03/16 Anemia -- acute on chronic-hgb decreased slightly this am. Recheck this evening. Pt feeling better, with more strength. GI bleed -Appears stable, rechecking cbc this evening. Sepsis -with elevated lactate-resolved Perfusion issues-- PICC line removed right arm and Midline in left. However, skin changes with redness and "heat" of skin reoccurred on left. Pt is post mastectomy left, but unlikely to contribute and unlikely to be cellulitis due to nl wbc and equal reaction on both sides with line. Likely reaction to sheath or med. Follow tonight and reeval in am, warm compress. Spoke with perfusion nurse. [id number] to Rocephin, cont with IV meds. Paroxysmal A. fib for which she is on eliquis- HELD. 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 Continue on cardiac medications including amiodarone, Atenolol. Hgb remains stable at 8.0. Appreciate Dr Winters's involvement and colonoscopy. Pathology is pending. Continue Protonix IV daily for GI protection Chronic anticoagulation remains stopped given significant anemia and concern for GI bleeding Will consult PT/OT for to get her up and moving given weakness. We'll discuss further plan of care with attending, Dr Funez 07/05 Plan Check troponin regarding back pain Continue Rocephin, tomorrow is day 7 and can discontinue after tomorrow's dose. Recheck vitals with patient sitting up, hemoglobin is somewhat labile. May need 1 more unit of blood Consider IV iron, possibly tomorrow Increase activity as tolerated Increase Harvey 10-1 every 4-6 hours as needed Probably back to the assisted on Thursday07/06/16 Overall, Gamal is doing well. Continue to monitor hemoglobin. Today, hemoglobin is 8.9 Consult placed with pharmacy for IV iron replacement for chronic anemia Today is day 7 of Rocephin for treatment of urinary tract infection. Can likely discontinue soon. Continue to encourage ambulation and activity Will recheck CBC and BMP to follow blood counts, renal function and electrolytes tomorrow. Hopeful for discharge in the near future CONNIE BURROUGHS MD 07/06/16 1730: Assessment & Plan Assessment 07/06/2016-I reviewed this chart, the patient history, and the AIRPLANE PILOT's/PA's documented findings as above. We discussed and formulated the assessment and plan as above with the additions below.-Dr. Burroughs Patient states she feels a little short of breath lying in bed but does not feel short of breath sitting up in the chair. She has had some mild chest heaviness even predating her admission and has just been fairly constant. Troponin yesterday was negative. She denies any chest pain. She is eating and drinking okay. She tolerated 1 unit of blood yesterday. She is getting IV iron today. She states she is still had some red blood in her stools but on reviewing data on stools they're reported as brown and no blood as mentioned. On exam she is alert and oriented 3 and in no acute distress. Chest is clear to auscultation with some mild crackles in the bases. Cardiovascular reveals a regular rate and rhythm. Abdomen is soft with mild tenderness and mild distention. Bowel sounds are present. Extremities reveal trace edema. Overall, the patient appears to be improving. Her weight is up from admission. Will give IV Bumex now and may need to give another IV Bumex dose tomorrow. I think her dyspnea without hypoxemia may be secondary to some fluid overload. Continue off of anticoagulation because of recent GI bleeding. Hopefully hemoglobin will stay up after transfusion and now IV iron. Possible discharge tomorrow. The patient will likely need to go [facility]. She was previously at assisted living. DARRICK GLEASON APRN Jul 06, 2016 13:09 CONNIE BURROUGHS MD Jul 06, 2016 17:30
--- NOTE | 2016-07-06 13:12 | NUR ---
IV IRON CONSULT: Dx: Chronic Anemia: Will give TDI (Total Dose Infusion) over 4 hours. Actual body weight = 100.5kg Hgb Level = 7.1 g/dL Calculated Dosing weight = 52.4 kg Total dose needed: 1500 mg (30 mL) Will give test dose of 25mg IV push over 30 seconds. Watch VS q 15 minutes x 1 hr. (watching for anaphylaxis, respiratory distress, hives.) If no reaction will give 1500MG in NS 500ml TRA 125ml/hr. Watch VS q 1 hr during infusion. Thank you.
[2016-07-06] MEDS ORDERED: IRON DEXTRAN 100mg/2ml INJECTION IV ONE (13:15)
--- NOTE | 2016-07-06 13:52 | NUR ---
IRON PT'S TEST DOSE OF IRON GIVEN, PT IS TOLERATING WELL. VITALS ARE WNL. NO S/S OF REACTION.
[2016-07-06] MEDS ORDERED: IRON DEXTRAN IV SCH (14:15)
[2016-07-06] MEDS ORDERED: NORMAL SALINE IV SCH (14:15)
[2016-07-06] MEDS ORDERED: BUMETANIDE 1 MG/4 ML INJECTION IV ONE (17:30)
--- NOTE | 2016-07-06 18:36 | NUR ---
SHIFT PT HAS BEEN PLEASANT AND COOPERATIVE ALL SHIFT. PT IS A&OX3, UP WITH ONE ASSIST, MODERATE FALL, GAIT BELT AND WALKER. PT DENIES SOA AND N/V BUT REPORTS SOME PAIN. PRN NORCO GIVEN. PT HAS BEEN UP TO RECLINER FOR MEALS AND MOST OF SHIFT. PT EATS 100% OF MEALS. PT TOLERATING IRON INFUSION WELL. NO OTHER CHANGES SINCE PREVIOUS NOTE. ALARMS IN USE AND CALL LIGHT WITH IN REACH.
[2016-07-06] MEDS: MELATONIN 5 MG TABLET PO SCH (22:09)
[2016-07-06] MEDS: DONEPEZIL 5 MG TABLET PO SCH (22:10)
[2016-07-07 01:12] VITALS: BP 137/81; PULSE 72; RESP 16; TEMP 96.1; O2SAT 95
--- NOTE | 2016-07-07 02:43 | NUR ---
Chart Check 24 hour chart check completed
[2016-07-07 04:21] VITALS: BP 162/69; PULSE 71; RESP 16; TEMP 98; O2SAT 97
--- NOTE | 2016-07-07 05:29 | NUR ---
STATUS PATIENT ALERT AND ORIENTEDX3. PATIENT C/O PAIN AT BACK,NECK AND LEGS. PRN NORCO WAS ADMINISTRATED FOR PAIN. PATIENT HAS SLEPT OFF AND ON. PATIENT UP X1 ASSIST. ON ROOM AIR. DENIES CHAT PAIN,SOA,OR N/V. PATIENT HAD ADEQUATE URINARY OUTPUT. PATIENT HAD MULTIPLE SOFT SMEAR BM DURING NIGHT. BED ALARM ON.CALL LIGHT WITHIN REACH. CONTINUE TO MONITOR.
[2016-07-07] MEDS: LEVOTHYROXINE 112 MCG TABLET PO SCH (05:31)
[2016-07-07 07:54] VITALS: BP 136/56; PULSE 64; RESP 16; TEMP 97.2; O2SAT 94
[2016-07-07 07:55] VITALS: PULSE 64; RESP 16
[2016-07-07] MEDS: MIRABEGRON 25 MG TABLET PO SCH (08:19)
[2016-07-07] MEDS: PRAMIPEXOLE 1 MG TABLET PO SCH (08:19)
[2016-07-07] MEDS: PredniSONE 5 MG TABLET PO SCH (08:19)
[2016-07-07] MEDS: RIFAXIMIN 550 MG TABLET PO SCH (08:20)
[2016-07-07] MEDS: SERTRALINE 100 MG TABLET PO SCH (08:20)
[2016-07-07] MEDS: BUMETANIDE 0.5 MG TABLET PO SCH ×2 (08:20→14:50)
[2016-07-07] MEDS: POTASSIUM CHLORIDE 20 MEQ TABLET PO SCH (08:20)
[2016-07-07] MEDS: AMIODARONE 200 MG TABLET PO SCH (08:20)
[2016-07-07] MEDS: DIVALPROEX 500 MG TABLET PO SCH (08:20)
[2016-07-07] MEDS: ATENOLOL 50 MG TABLET PO SCH (08:21)
[2016-07-07] MEDS: PANTOPRAZOLE 40mg INJECTION IV SCH (08:22)
[2016-07-07] MEDS: CEFTRIAXONE 1 G in NORMAL SALINE 100 ML IV SCH (08:23)
[2016-07-07] MEDS: NORMAL SALINE 500 ML IV SCH (08:23)
[2016-07-07] MEDS ORDERED: HYDR-4078 PO (11:04)
--- NOTE | 2016-07-07 11:05 | PDOCECFAO ---
Admission Orders Admission Orders Admit to: Snf Allergies: Coded Allergies: phenylbutazone (Verified Allergy, Mild, HIVES (BUTAZOLIDIN - MANU DISC), ) lansoprazole (Verified Adverse Reaction, Mild, DIARRHEA, 06/02/16) Admitting Diagnosis Acute Blood Loss Anemia Admitting Physician Sun Burroughs MD Code Status Do Not Resuscitate Anticipated LOS: 30 days or less Rehab Potential: Fair Rehab Prognosis: Fair Diet: Regular May use Facility Protocol /SO: Yes Evaluations/Treat: PT, OT Snf Certification I certify that SNF services are required to be given on an Inpatient basis because of the patients need for shelter care on a continuing basis for the condition(s) for which he/she received inpatient hospital services prior to his/her transfer to the SNF. SNF inpatient care is necessary for the following reasons Other (PT,OT) Cardiac or Respiratory Arrest In Event of Arrest: Do Not Start CPR DARRICK GLEASON APRN Jul 07, 2016 11:05
--- NOTE | 2016-07-07 11:08 | NUR ---
CM THIS WORKER MET WITH PT IN ROOM. PT IN AGREEMENT WITH DISCHARGE PLAN ON THIS DATE. PROCESS OF DISCHARGE DISCUSSED. PT IN AGREEMENT. THIS WORKER CALLED AND SPOKE TO [facility] AT [facility] AND ADVISED OF DISCHARGE PLAN ON THIS DATE. [facility] WILL PLAN TRANSPORTATION ARRANGEMENTS WHEN ORDERS FOR DISCHARGE ARE RECEIVED.
--- NOTE | 2016-07-07 11:36 | DSPDOC ---
DARRICK GLEASON V TRANSCRIPT EVALUATOR 07/07/16 1133: General Date Date DATE: 07/07/16 TIME: 11:29 Attending Physician Sun Burroughs MD Admitting Physician Sun Burroughs MD Consulting Physician Mino Winters MD,Facs,Cws Admitting Diagnosis acute blood loss anemia Discharge Diagnosis Sepsis, UTI GI bleed Anemia Chronic anticoagulation Procedures 07/02/16-colonoscopy performed by Dr. Winters Laboratory Laboratory Tests Test 07/06/16 04:38 White Blood Count 3.7T/MM3 (4.5-11.0) Red Blood Count 3.24M/MM3 (4.00-5.20) Hemoglobin 8.9GM/DL (12-16) Hematocrit 29.8% (36-46) Mean Corpuscular Volume 92.0UM3 (80-100) Mean Corpuscular Hemoglobin 27.5UUG (26-34) Mean Corpuscular Hemoglobin Concent 29.9GM/DL (31-37) RDW Standard Deviation 53.5FL (36.9-50.2) Platelet Count 76T/MM3 (130-400) Mean Platelet Volume 12.4UM3 (9.4-12.4) Immature Granulocyte % (Auto) 0.3% (0.0-0.5) Neutrophils (%) (Auto) 59.8% (33-66) Lymphocytes (%) (Auto) 26.5% (23-45) Monocytes (%) (Auto) 10.9% (0-9.0) Eosinophils (%) (Auto) 2.2% (0-4) Basophils (%) (Auto) 0.3% (0-2) Absolute Immature Granulocyte (auto 0.01T/MM3 (0.00-0.03) Absolute Neutrophils (auto) 2.2T/MM3 (1.8-7.7) Absolute Lymphocytes (auto) 1.0T/MM3 (1-4.8) Absolute Monocytes (auto) 0.4T/MM3 (0-0.8) Absolute Eosinophils (auto) 0.1T/MM3 (0-0.5) Absolute Basophils (auto) 0.0T/MM3 (0-0.2) Turbidity < 20 (0-20) Sodium Level 146MEQ/L (134-144) Potassium Level 3.7MEQ/L (3.6-5) Chloride Level 109MEQ/L (98-107) Carbon Dioxide Level 26MEQ/L (22-30) Anion Gap 11MEQ/L (5-15) Blood Urea Nitrogen 17.0MG/DL (7-17) Creatinine 0.8MG/DL (0.7-1.2) Glomerular Filtration Rate Calc 69 BUN/Creatinine Ratio 21RATIO (6-26) Glucose Level 126MG/DL (65-110) Calculated Osmolality 285MOSM/KG (261-280) Calcium Level 8.7MG/DL (8.4-10.2) Icterus Index < 2 (0-7) Chemistry Specimen Hemolysis < 15 (0-25) Microbiology RUN DATE: 07/02/16 [facility] PAGE 1 RUN TIME: [address] [place] [address] [place] [address] CLIA# [id number] Laboratory Specimen Report PATIENT: ANDIE DUNN Act#:[id number] Loc: CCU 5- P Specimen: [id number] Collected: 06/30/16 Received: 06/30/[address]: LAWRENCE ALMONTE MD Source: URVOID Procedure Result Verified MICROBIOLOGY URINE CULTURE. Final 07/02/16 Organism 1 ENTEROBACTER CLOACAE COLONY COUNT >100,000 CFU/ml E CLOACAE INTERP ROSHAN ------ --------- AMOX/CLAV ACID R >=32 CEFAZOLIN R >=64 CEFEPIME S <=1 CEFTAZIDIME S <=1 CEFTRIAXONE S <=1 CIPROFLOXACIN S <=0.25 ERTAPENEM S <=0.5 GENTAMICIN S <=1 LEVOFLOXACIN S 1 NITROFURANTOIN S 32 TOBRAMYCIN S <=1 TRIMETH/SULFA R >=320 PIPERACILL/TAZO S <=4 URINE CULTURE. Preliminary (changed) 07/01/16 Organism 1 GRAM NEGATIVE ALF COLONY COUNT >100,000 CFU/ml URINE CULTURE. Preliminary (changed) 06/30/16 CULTURE INITIATED - RESULTS PENDING L=Low, H=High, *L=Critical Low, *H=Critical High, A=Abnormal, *A=Critical Abnormal, D=Delta PATIENT: ANDIE DUNN Age/Sex: 80/F Loc: CCU 5- P : 1935 Status: ADM IN Unit#: [id number] Attending Dr: SUN BURROUGHS MD PATIENT: ANDIE DUNN Act#:[id number] Loc: [facility] 130-P Specimen: [id number] Collected: 07/02/16 Received: 07/02/[address]: SUN BURROUGHS MD Source: CATH/PORT Procedure Result Verified MICROBIOLOGY BLOOD CULTURE. Preliminary 07/06/16-1602 NO GROWTH AFTER 4 DAYS BLOOD CULTURE. Preliminary (changed) 07/05/16-1602 NO GROWTH AFTER 72 HOURS BLOOD CULTURE. Preliminary (changed) 07/04/16-1602 NO GROWTH AFTER 48 HOURS BLOOD CULTURE. Preliminary (changed) 07/03/16-1602 NO GROWTH AFTER 24 HOURS BLOOD CULTURE. Preliminary (changed) 07/02/16-1604 CULTURE INITIATED - RESULTS PENDING Radiology 06/30/16-- Chest Xray- Picc line check 07/07/16- CTA revealed no pulmonary emboli, small right and trace left pleural effusions 07/02/16- venous duplex of the right upper extremity revealed a nonocclusive superficial thrombophlebitis at the PIC line insertion site. No DVT History of Present Illness Patient is a pleasant 80-year-old female who was brought to the emergency room today for evaluation of significant weakness. She reports that she has not felt well for the last several days. On Tuesday 06/27. She did have some diarrhea stools , over the next several days, she continued to have worsening weakness and was brought to the emergency room this morning for further evaluation and treatment. Laboratory studies and CT scan were obtained in the emergency room, and patient was found to be significantly anemic with a hemoglobin of 6.2. WBC count 4.5, RBCs 2.41, hematocrit 22.7, platelet count 92. Sodium is 143, potassium 5.0, BUNs 20, creatinine 1.4, cochlea did osmolality 281. LFTs are normal. Troponin was undetectable, proBNP 40. Venous lactate was found to be elevated at 2.5, pro calcitonin 0.05, TSH 10.80. INR 1.53, platelet count 31.1. A urinalysis was obtained showing 2+ protein, 3+ blood, positive nitrates , 1+ leukocyte esterase, 30-50 RBCs with 2 numerous to count WBCs with clumps present. Chest x-ray was initially obtained. Obtained showing nonspecific bibasilar opacities or fibrosis. Given the elevated d-dimer of 870 CT of the chest was obtained which did reveal small right and trace left pleural effusions. Otherwise, no evidence of pulmonary emboli. Given symptomatic weakness, accompanied with significant anemia and presence of sepsis/UTI. The hospitalist services were contacted and accepted patient for inpatient admission to the ICU for further evaluation and treatment. It is expected that her stay will be greater than 2 overnights. Andie is seen today for inital examination. She is pale in color and appears weak. She reports she has not felt well for " a year" since she was admitted and treated for sepsis. He notes this was the beginning of a significant overall decline for her last June. Was unable to return home independently after that illness. Acutely she has not felt well for the last 3-4 days. She reports just feeling significantly weak. Did have some mild amount of diarrhea last Tuesday 06/27, however, this resolved. She denies any acute bleeding in her stools. Was able to review old records and it appears that patient had seen for "liver failure" in 2016. He he recommended a liver sonogram every 6 months. Last office visit was in September 2015. Hospital Course 06/30 Admit patient to inpatient status under the care of Dr Burroughs for Sepsis with UTI and Anemia Patient started on Rocephin 1 mg IV while in the ER. Will continue with daily dosing. Urine and blood cultures pending. Follow serial lactate levels as per sepsis protocol. Patient is type, screen and crossmatched for 1 unit of packed red blood cells transfusion given anemia. Patient is chronically on Eliquis for chronic atrial fibrillation. She denies having black stools and attributes some red stools to Hemorrhoids Surgical consultation by Dr. Winters In light of anemia. Patient may have clear liquid diet now. Will follow platelet count as patient does have thrombocytopenia, however, this appears to be chronic. She does see Dr. Zuniga for chronic anemia since her breast cancer in 2008. Plt count in in 80-90's. Will obviously need to hold all anticoagulation given anemia with probably Gi bleeding. CHADS2 score 5.9% (moderate risk) SCDs to bilateral lower ext for DVT prophylaxis Will need to discuss and review all home medications with attending, Dr Burroughs. Recheck CBC and a BMP tomorrow morning to follow blood counts, renal function, electro-lites. At time of discharge medical care will return to primary care provider, Dr. Taveras 06/30/2016-I reviewed this chart, the patient history, and the TRANSCRIPT EVALUATOR's/PA's documented findings as above. We discussed and formulated the assessment and plan as above with the additions below.-Dr. Burroughs Patient was seen and examined independently in the CCU this afternoon. She states she is feeling progressively more fatigued over the past 2-3 days. She's developed shortness of breath with activities. She also has a fullness and tenderness in her abdomen. She has had no fevers, chills or sweats. She has had some occasional dysuria. She's not had any nausea or vomiting. She has normally brown colored stools but has had some red blood which she attributes to hemorrhoids. She is not able to give herself the suppositories to help with hemorrhoids has of shoulder pains. This morning her hemoglobin was 6.2. She chronically has anemia with hemoglobin in the 9.3 range. She had vitamin B-12 and folate levels checked here in May and they were normal. The patient also has history of unknown type of liver disease for which she sees Dr. Cade. She is on Xifaxan she is on prednisone chronically for knee pains and back pain. On exam she is alert and oriented 3 and in no acute distress. She has received 1 unit of blood. Currently heart rate is 60 and O2 sat is 94% on room air. HEENT reveals sclerae to be anicteric and oropharynx is moist. Neck is supple. Chest is clear to auscultation. Cardiovascular reveals a regular rate and rhythm. Abdomen is soft and mildly tender in the epigastrium. Abdomen is mildly distended. Bowel sounds are normoactive. Extremities are free of clubbing cyanosis or edema. Lab work was reviewed. Lactate was elevated at 2.5 this morning and on repeat is 1.6. Pro-calcitonin 0.05. TSH is elevated at 10.8. Impression Anemia chronic with acute worsening GI bleed with bright red blood likely from hemorrhoids which is chronic, cannot rule out an acute upper or lower GI bleed Abdominal pain Sepsis -with elevated lactate, improved UTI-start Rocephin History of liver disease-possible cirrhosis-continue rifaximin Paroxysmal A. fib for which she is on eliquis-this will be on hold for gi bleed. Continue amiodarone and atenolol CHF-EF 55% Chronic kidney disease Hypertension Chronic pain on chronic narcotics Chronic prednisone use Dementia Hypothyroidism Patient was admitted to CCU. With her chronic anemia we'll go ahead and give 2 units of blood today. PICC line is being placed for poor IV access. B-12 and folate were normal last month. We'll check iron studies. Dr. Winters has been consulted and plans for EGD tomorrow. We'll place the patient on proton pump inhibitor IV. Will obtain serial hemoglobin will stay 2 units ahead. Will continue usual steroids but keep in mind she may need stress dose steroids if she has any worsening. Regarding UTI with elevated lactate, Rocephin has been started and the patient was given IV fluids. Lactate has normalized. The patient will remain here in CCU for close monitoring overnight. 07/01/2016 Impression Anemia or acute on chronic-improved post transfusion of 2 units of blood yesterday GI bleed with bright red blood likely from hemorrhoids which is chronic, await results of EGD Abdominal pain Sepsis -with elevated lactate, improved UTI-start Rocephin-GNR in urine History of liver disease-possible cirrhosis-continue rifaximin Paroxysmal A. fib for which she is on eliquis-this will be on hold for gi bleed. Continue amiodarone and atenolol CHF-EF 55% Chronic kidney disease Hypertension Chronic pain on chronic narcotics Chronic prednisone use Dementia Hypothyroidism Mild hyperkalemia-should improve with Bumex Continue serial hemoglobins. Restart Bumex. DC IV fluids. Discuss with Dr. Winters later today regarding EGD results and whether or not colonoscopy is needed. Patient states she underwent a colonoscopy in the summer of 2015 at the [facility] and we will try to obtain results. Creatinine has improved from yesterday with IV fluids. PT and OT eval. Continue to hold anticoagulation. SCDs for DVT prophylaxis. 07/03/16 Anemia -- acute on chronic-hgb decreased slightly this am. Recheck this evening. Pt feeling better, with more strength. GI bleed -Appears stable, rechecking cbc this evening. Sepsis -with elevated lactate-resolved Perfusion issues-- PICC line removed right arm and Midline in left. However, skin changes with redness and "heat" of skin reoccurred on left. Pt is post mastectomy left, but unlikely to contribute and unlikely to be cellulitis due to nl wbc and equal reaction on both sides with line. Likely reaction to sheath or med. Follow tonight and reeval in am, warm compress. Spoke with perfusion nurse. TLM-[id number] to Rocephin, cont with IV meds. Paroxysmal A. fib for which she is on eliquis- HELD. 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 Continue on cardiac medications including amiodarone, Atenolol. Hgb remains stable at 8.0. Appreciate Dr Winters's involvement and colonoscopy. Pathology is pending. Continue Protonix IV daily for GI protection Chronic anticoagulation remains stopped given significant anemia and concern for GI bleeding Will consult PT/OT for to get her up and moving given weakness. We'll discuss further plan of care with attending, Dr Funez 07/05 Plan Check troponin regarding back pain Continue Rocephin, tomorrow is day 7 and can discontinue after tomorrow's dose. Recheck vitals with patient sitting up, hemoglobin is somewhat labile. May need 1 more unit of blood Consider IV iron, possibly tomorrow Increase activity as tolerated Increase [place] 10-1 every 4-6 hours as needed Probably back to the senior care on Thursday07/06/16 Overall, Gamal is doing well. Continue to monitor hemoglobin. Today, hemoglobin is 8.9 Consult placed with pharmacy for IV iron replacement for chronic anemia Today is day 7 of Rocephin for treatment of urinary tract infection. Can likely discontinue soon. Continue to encourage ambulation and activity Will recheck CBC and BMP to follow blood counts, renal function and electrolytes tomorrow. Hopeful for discharge in the near future 07/07/16-discharge Andie is doing well and is excited about discharge today. She has completed 7 full days of Rocephin for treatment of Enterobacter Cloacae urinary tract infection. Her hemoglobin has stabled. She did receive a total of 3 units of packed red blood cells transfusions as well as IV iron during her hospitalization. No continued GI bleeding. She will be discharged to [facility] for ongoing rehabilitation. It is recommended that she continue to stay off of her a liquids anticoagulation for at least another 2 weeks. At that time she will need to follow with primary care provider, Dr. Ronald Fishman to discuss risk versus benefit of chronic anticoagulation. This is a general summation of the patients hospital course. Please refer to the medical record if additional detail is needed. Total discharge time greater 40 minutes Problems: (1) Sepsis Status: Resolved Assessment & Plan: Magnifications of sepsis include the following- 1. UTI 2. Elevated Lactate- 2.5 3. Tachypneic 28/min (2) Anemia Status: Acute Assessment & Plan: May angiogram ordered for recheck, anemia stable. We'll review hemoglobin prior to leaving [facility]. (3) Thrombocythemia Status: Chronic Assessment & Plan: Likely chronic (4) UTI (lower urinary tract infection) Status: Acute Assessment & Plan: Acute (5) HTN (hypertension) Status: Chronic (6) GERD (gastroesophageal reflux disease) Status: Chronic (7) Hypothyroidism Status: Chronic (8) Depression Status: Chronic (9) Osteoarthritis Status: Chronic (10) CHF following non-cardiac surgery, postop Status: Chronic (11) Anticoagulated Status: Chronic (12) Cirrhosis Status: Chronic (13) Paroxysmal atrial fibrillation Status: Chronic (14) CKD (chronic kidney disease), stage III Status: Chronic (15) Chronic back pain Status: Chronic (16) Invasive ductal carcinoma of breast, stage 2 Onset Date: ~ 2006 Status: Chronic Code Status Do Not Resuscitate Home Meds Active Scripts Hydrocodone/Acetaminophen ([place] 10-325 Tablet) 1 Each Tablet, 1 TAB PO Q6H Y for PRN ORDERS, #30 TAB Prov:DARRICK GLEASON V TRANSCRIPT EVALUATOR 07/07/16 Omeprazole (Prilosec) 20 Mg Capsule, 20 MG PO ACBID, #0 CAP Prov:KURITS FOOTE MD 07/09/15 Amiodarone HCl (Amiodarone HCl) 200 Mg Tablet, 200 MG PO DAILY for atrial fibrillation, #0 TAB Prov:KURTIS FOOTE MD 07/09/15 Reported Medications Melatonin (Melatonin) 3 Mg Tablet, 5-10 MG PO HS Y for NJ, #30 TAB 2 Refills 06/30/16 Mirabegron (Myrbetriq) 25 Mg Tab.er.24h, 25 MG PO DAILY, TAB 06/30/16 Prednisone (Prednisone) 5 Mg Tablet, 7.5 MG PO WB, TAB Take 1 1/2 (5 mg) tablets, by mouth, one time a day with breakfast. 06/30/16 Atenolol (Atenolol) 50 Mg Tablet, 1 TAB PO DAILY, TAB 06/30/16 Acetaminophen (Tylenol) 325 Mg Tablet, 1-2 TAB PO PRN, #60 TAB 2 Refills 06/30/16 Bumetanide (Bumetanide) 0.5 Mg Tablet, 1 TAB PO BID, TAB 06/01/16 Donepezil HCl (Donepezil HCl) 5 Mg Tablet, 1 TAB PO HS, #30 TAB 5 Refills 06/01/16 Rifaximin (Xifaxan) 550 Mg Tablet, 550 MG PO BID, TAB 06/01/16 Potassium Chloride (Potassium Chloride) 10 Meq Capsule.er, 2 CAP PO BIDWM, CAP Take 1 capsule, by mouth, two times a day with meals 06/01/16 Polyethylene Glycol 3350 (Miralax) 17 Gm Powd.pack, 1 PACKET PO DAILY Y for CONSTIPATION, #30 PACKET 3 Refills 06/01/16 Ospemifene (Osphena) 60 Mg Tablet, 60 MG PO DAILY 07/05/15 Levothyroxine Sodium (Levothyroxine Sodium) 112 Mcg Tablet, 112 MCG PO ACB, TAB Once daily before breakfast. 07/05/15 Calcium Carbonate/Vitamin D3 (Calcium 600 + Vit D Caplet) 1 Each Tablet, PO DAILY 10/16/14 Pramipexole Di-HCl (Mirapex) 1 Mg Tablet, 1 MG DAILY 04/19/14 Divalproex Sodium (Divalproex Sodium) 500 Mg Tablet.dr, 500 MG PO DAILY, #90 11/23/13 Sertraline Hcl (Zoloft) 100 Mg Tablet, 100 MG PO DAILY, 0 Refills 09/27/09 Discontinued Reported Medications Apixaban (Eliquis) 5 Mg Tablet, 5 MG PO BID, #180 11/23/13 Face to Face Encounter I met with patient on the day of dismissal and discussed follow up appointments , medications, and safety plan. Discharge Disposition stable Copies To 1: RONALD TAVERAS DOYLE D MD 07/07/16 1216: Hospital Course Home Meds Active Scripts Hydrocodone/Acetaminophen ([place] 10-325 Tablet) 1 Each Tablet, 1 TAB PO Q6H Y for PRN ORDERS, #30 TAB Prov:DARRICK GLEASON V TRANSCRIPT EVALUATOR 07/07/16 Omeprazole (Prilosec) 20 Mg Capsule, 20 MG PO ACBID, #0 CAP Prov:KURTIS FOOTE MD 07/09/15 Amiodarone HCl (Amiodarone HCl) 200 Mg Tablet, 200 MG PO DAILY for atrial fibrillation, #0 TAB Prov:KURTIS FOOTE MD 07/09/15 Reported Medications Melatonin (Melatonin) 3 Mg Tablet, 5-10 MG PO HS Y for NJ, #30 TAB 2 Refills 06/30/16 Mirabegron (Myrbetriq) 25 Mg Tab.er.24h, 25 MG PO DAILY, TAB 06/30/16 Prednisone (Prednisone) 5 Mg Tablet, 7.5 MG PO WB, TAB Take 1 1/2 (5 mg) tablets, by mouth, one time a day with breakfast. 06/30/16 Atenolol (Atenolol) 50 Mg Tablet, 1 TAB PO DAILY, TAB 06/30/16 Acetaminophen (Tylenol) 325 Mg Tablet, 1-2 TAB PO PRN, #60 TAB 2 Refills 06/30/16 Bumetanide (Bumetanide) 0.5 Mg Tablet, 1 TAB PO BID, TAB 06/01/16 Donepezil HCl (Donepezil HCl) 5 Mg Tablet, 1 TAB PO HS, #30 TAB 5 Refills 06/01/16 Rifaximin (Xifaxan) 550 Mg Tablet, 550 MG PO BID, TAB 06/01/16 Potassium Chloride (Potassium Chloride) 10 Meq Capsule.er, 2 CAP PO BIDWM, CAP Take 1 capsule, by mouth, two times a day with meals 06/01/16 Polyethylene Glycol 3350 (Miralax) 17 Gm Powd.pack, 1 PACKET PO DAILY Y for CONSTIPATION, #30 PACKET 3 Refills 06/01/16 Ospemifene (Osphena) 60 Mg Tablet, 60 MG PO DAILY 07/05/15 Levothyroxine Sodium (Levothyroxine Sodium) 112 Mcg Tablet, 112 MCG PO ACB, TAB Once daily before breakfast. 07/05/15 Calcium Carbonate/Vitamin D3 (Calcium 600 + Vit D Caplet) 1 Each Tablet, PO DAILY 10/16/14 Pramipexole Di-HCl (Mirapex) 1 Mg Tablet, 1 MG DAILY 04/19/14 Divalproex Sodium (Divalproex Sodium) 500 Mg Tablet.dr, 500 MG PO DAILY, #90 11/23/13 Sertraline Hcl (Zoloft) 100 Mg Tablet, 100 MG PO DAILY, 0 Refills 09/27/09 Discontinued Reported Medications Apixaban (Eliquis) 5 Mg Tablet, 5 MG PO BID, #180 11/23/13 Face to Face Encounter Have independently interviewed and examined pt. Chart reviewed. Case discussed with CM and my TRANSCRIPT EVALUATOR. Care plan developed with my supervision; agree with above. Doing well today. Breathing well. No chest pressure or pain. Not having ab pain or nausea. Strength gradually improving. Lungs; clear CV: regular AB: soft nt/nd MSE: awake alert appropriate Plan: Will d/c to group home. Bold thinners stopped - hold at least 2 weeks. Encourage therapy. See orders for details. Copies To 1: RONALD TAVERAS JULIE V APRN Jul 07, 2016 11:33 JUAN CARLOS JOSE MD Jul 07, 2016 12:16
[2016-07-07 11:55] VITALS: BP 133/64; PULSE 66; RESP 18; TEMP 97.9; O2SAT 91
--- NOTE | 2016-07-07 15:15 | NUR ---
Discharge Pt discharged at this time via wheelchair status through the main entrance with [employer] transportation. VS stable on RA. Midline to left upper arm DC'd prior to discharge. Discharge packet and instructions sent with Pt to [facility]. Pts own walker was sent with Pt. Report called to Gini Thomas RN.
== END 2016-07-07 15:15 | DRG 872 ==
LOC: ED 06:33 → EDHOLD 10:27 → CCU 11:28 → SRG 07-02 18:35
PROVIDERS: ADMIT Internal Medicine; ATTEND Internal Medicine
PROC: B32T1ZZ Computerized Tomography (CT Scan) of Left Pulmonary Artery using Low Osmolar Contrast (ICD-10-PCS; 2016-06-30)
PROC: B32S1ZZ Computerized Tomography (CT Scan) of Right Pulmonary Artery using Low Osmolar Contrast (ICD-10-PCS; 2016-06-30)
PROC: 02HV33Z Insertion of Infusion Device into Superior Vena Cava, Percutaneous Approach (ICD-10-PCS; 2016-06-30)
PROC: 0DB68ZX Excision of Stomach, Via Natural or Artificial Opening Endoscopic, Diagnostic (ICD-10-PCS; 2016-07-01)
PROC: 0DBK8ZX Excision of Ascending Colon, Via Natural or Artificial Opening Endoscopic, Diagnostic (ICD-10-PCS; 2016-07-02)
PROC: 0DBP8ZX Excision of Rectum, Via Natural or Artificial Opening Endoscopic, Diagnostic (ICD-10-PCS; 2016-07-02)
PROC: 30233N1 Transfusion of Nonautologous Red Blood Cells into Peripheral Vein, Percutaneous Approach (ICD-10-PCS; principal; 2016-07-05)
DX: A41.9 Sepsis, unspecified organism (principal); N39.0 Urinary tract infection, site not specified; D62 Acute posthemorrhagic anemia; I13.0 Hypertensive heart and chronic kidney disease with heart failure and stage 1 through stage 4 chronic kidney disease, or unspecified chronic kidney disease; C18.2 Malignant neoplasm of ascending colon; T82.898A Other specified complication of vascular prosthetic devices, implants and grafts, initial encounter; D69.6 Thrombocytopenia, unspecified; K31.7 Polyp of stomach and duodenum; I48.0 Paroxysmal atrial fibrillation; N18.3 Chronic kidney disease, stage 3 (moderate); G89.29 Other chronic pain; M54.9 Dorsalgia, unspecified; F32.9 Major depressive disorder, single episode, unspecified; E03.9 Hypothyroidism, unspecified; R32 Unspecified urinary incontinence; K21.9 Gastro-esophageal reflux disease without esophagitis; C50.919 Malignant neoplasm of unspecified site of unspecified female breast; M19.90 Unspecified osteoarthritis, unspecified site; E87.5 Hyperkalemia; D12.7 Benign neoplasm of rectosigmoid junction; F03.90 Unspecified dementia, unspecified severity, without behavioral disturbance, psychotic disturbance, mood disturbance, and anxiety; K64.8 Other hemorrhoids; K64.4 Residual hemorrhoidal skin tags; I50.9 Heart failure, unspecified; B96.89 Other specified bacterial agents as the cause of diseases classified elsewhere; D50.0 Iron deficiency anemia secondary to blood loss (chronic); K74.69 Other cirrhosis of liver; I80.8 Phlebitis and thrombophlebitis of other sites; Z79.01 Long term (current) use of anticoagulants; Z79.891 Long term (current) use of opiate analgesic; Z79.52 Long term (current) use of systemic steroids; Z66 Do not resuscitate; Z79.899 Other long term (current) drug therapy; Z95.0 Presence of cardiac pacemaker
CPT/HCPCS: 36569; 43239; 45380; 71275; 96365; S9538; 36415; 36416; 36600; 71010; 80048; 80053; 80069; 81001; 82803; 83540; 83550; 83605; 83690; 83735; 83880; 84145; 84443; 84484; 85007; 85018; 85025; 85027; 85379; 85610; 85730; 86850; 86900; 86901; 86922; 87040; 87077; 87086; 87186; 88305; 93005; 96361; 96374

== ENCOUNTER 2016-07-11 14:39 | Inpatient (IN) | payer MEDICARE, BC ==
[~2016-07-11] VITALS: Ht 160 cm; Wt 90.7 kg
[~2016-07-11 14:39] MED LIST changes: +ACET-2321 PO; -APIX5TAB PO; +ATEN50TA PO; +MELA3TAB30 PO; +MIRA25TA PO; +PRED5TAB PO; -SENN-152 PO
--- OUTSIDE RECORDS SUMMARY | 2016-07-11 14:44 | XMS REPORT | Continuity of Care Document ---
Author Author [facility] Organization [facility] Address Unknown Phone Unavailable Support Name Relationship Address Phone TAMI LIU Next Of Kin [address] [place] [address] Unavailable Insurance Providers Payer Name Policy Number Subscriber Name Relationship [facility] [id number] Andie Liu Self Medicare [id number] Andie Liu Self [facility] Other [id number] Andie Liu Self Problems No Known Problems [...] Congestive Heart Failure N HAS BEEN DEBATED, "RETAIL PERSONAL BANKER SAYS NO" 7:00pm Hx Heart Attack N [...] Summary. Procedures Procedure Code Date PARTICAL MASTECTOMY 55170 08/31/08 BIOPSY/REMOVAL LYMPH NODES 01541 08/31/08 RA TRACER ID OF SENTINL NODE 60883 08/31/08 PACKED CELL TRANSFUSION 99.04 04/24/09 INCISION OF NOSE 21.1 10/14/11 REPAIR OF NASAL SEPTUM 45368 02/06/12 THER FX NASAL INF TURBINATE 45803 02/06/12 [id number] CANCER SCREENING; COLONOSCOPY ON INDIVIDUAL G0121 06/04/12 MUSCULOSKELETAL SURGERY 62405 07/11/13 Blood Culture 10/13/11 Eye/Ear/Nose/Throat Culture 10/13/11 Encounters Encounter Location Date/Time Departed Emergency Room [facility] 11/08/12 6:53pm Discharged Inpatient [facility] 10/13/11 4:58pm
--- OUTSIDE RECORDS SUMMARY | 2016-07-11 14:44 | XMS REPORT | Continuity of Care Document ---
Author Author [facility] Organization [facility] Address Unknown Phone Unavailable Support Name Relationship Address Phone SUN BRUROUGHS MD Caregiver [address] [place] [phone] Unavailable SUN BURROUGHS MD Caregiver [address] [place] [address] Unavailable RONALD TAVERAS DO Caregiver Unknown Unavailable LAWRECNE ALMONTE MD Caregiver [address] [place] [address] [place] [address] Unavailable TAMI LIU DPOA Next Of Kin [address] [place] [id number] C Insurance Providers Guarantor Bhavna Liu Address [address] [address] Email [email or web address] Payer [facility] Policy Number [id number] Subscriber's Name Bhavna Liu Relationship 18 Self Group Number [id number] Payer [facility] [employer] Ppo Policy Number [id number] Subscriber's Name Bhavna Liu Relationship 18 Self Group Number [id number] Advance Directives Directive Response Recorded Date/Time Advanced Directives Type DNR Documentation DPOA for Healthcare 06/30/16 6:35am Dr Foster Resuscitation Status Do Not Resuscitate 06/30/16 10:27am Resuscitation Documents on File No 06/30/16 10:58am DPOA for Healthcare Only Dariusz liu 06/30/16 1:19pm Living Will Yes 06/30/16 10:58am Problems Active Problems Medical Problem Onset Date Status Acute encephalopathy Unknown Acute Acute kidney injury 11/25/2013 Acute Acute kidney injury Unknown Acute Anemia Unknown Acute Anemia Unknown Acute Anemia of chronic disease Unknown Chronic Anticoagulated Unknown Chronic Ascites Unknown Acute CHF following non-cardiac surgery, postop Unknown Chronic CKD (chronic kidney disease), stage III Unknown [...] Chronic Right-sided congestive heart failure Unknown Chronic Sepsis Unknown Resolved Steroid long-term use Unknown Chronic Thrombocythemia Unknown Chronic UTI (lower urinary tract infection) Unknown Acute Past Problems Medical Problem Onset Date Acute blood loss anemia Unknown Post-op bleeding Unknown Posterior epistaxis Unknown UTI (urinary tract infection) Unknown Medications Current Home Medications Medication Dose Units Route Directions Days Qty Instructions Start Date Acetaminophen (Tylenol) 325 Mg Tablet 1-2 Tab Oral As Needed 60 Tablet 06/30/16 Amiodarone Hcl 200 Mg Tablet 200 Mg Oral Daily for Atrial Fibrillation 0 Tablet 07/09/15 Atenolol 50 Mg Tablet 1 Tab Oral Daily 06/30/16 Bumetanide 0.5 Mg Tablet 1 Tab Oral Twice A Day 06/01/16 Calcium Carbonate/Vitamin D3 (Calcium 600 + Vit D Caplet) 1 Each Tablet Oral Daily 10/16/14 Divalproex Sodium 500 Mg Tablet.dr 500 Mg Oral Daily 90 11/23/13 Donepezil Hcl 5 Mg Tablet 1 Tab Oral Bedtime 30 Tablet 06/01/16 Hydrocodone/Acetaminophen (Sanborn 10-325 Tablet) 1 Each Tablet 1 Tab Oral Every 6 Hours as needed for Prn Orders 30 Tablet 07/07/16 Levothyroxine Sodium 112 Mcg Tablet 112 Mcg Oral Before Breakfast Once daily before breakfast. 07/05/15 Melatonin 3 Mg Tablet 5-10 Mg Oral Bedtime as needed for Pr 30 Tablet 06/30/16 Mirabegron (Myrbetriq) 25 Mg Tab.er.24h 25 Mg Oral Daily 06/30/16 Omeprazole (Prilosec) 20 Mg Capsule 20 Mg [...] 1 Mg Tablet 1 Mg Daily 04/19/14 Prednisone 5 Mg Tablet 7.5 Mg Oral Give With Breakfast Take 1 1/2 ( 5 mg) tablets, by mouth, one time a day with breakfast. 06/30/16 Rifaximin (Xifaxan) 550 Mg Tablet 550 Mg Oral Twice A Day Sertraline Hcl (Zoloft) 100 Mg Tablet 100 Mg Oral Daily 09/27/09 Past Home Medications [...] Tablet, 1 Mg Oral Bedtime 10/13/11 Discontinued Apixaban (Eliquis) 5 Mg Tablet, 5 Mg Oral Twice A Day 11/23/13 Discontinued Atenolol (Tenormin) 50 Mg Tablet, 50 [...] Mg Oral As Needed 09/27/09 Discontinued Hydrocodone/Acetaminophen (Sanborn 10-325 Tablet) 1 Each Tablet, 1 Tab Oral Every 6 Hours as needed for Prn Orders 07/09/15 Discontinued Hydrocodone/Acetaminophen ([place] 10-325 Tablet) 1 Each Tablet, 1 Tab [...] Tightness 02/02/14 Discontinued Pantoprazole Sodium 40 Mg Tablet.dr, 11/23/13 Discontinued Potassium Chloride 20 Meq Tablet.er, [...] Discontinued Triamcinolone Acetonide (Nasacort Aq) 16.5 Gm [place], 2 Sprays Nasal Daily 18/01 Discontinued Social History Social History Problem Response Recorded Date/Time Onset Date Status Reason for Hospitalization GI Bleed, Anemia 07/07/2016 12:12pm Not Applicable Not Applicable Chewing Tobacco Status No 11/11/2012 5:10pm Not Applicable Not Applicable Hx Substance Use No 06/30/2016 6:35am Not Applicable Not Applicable Hx Alcohol Use No 06/30/2016 6:35am Not Applicable Not Applicable Has the pt used tobacco in the last 12 months No 06/30/2016 11:01am Not Applicable Not Applicable Tobacco Usage none 07/06/2015 1:05pm Not Applicable Not Applicable Query Response Start Date Stop Date Smoking Status Never smoker Hospital Discharge Instructions Instructions: Care Instructions: Reason for Hospitalization: GI Bleed, Anemia I was in the hospital because (patient own words): uti and low blood count Discharge Diet: regular diet Discharge Activity: Activity as tolerated Follow Up Appointments: Scheduled follow-up appointment with Dr. Taveras in 1-2 weeks. Patient will need CBC and BMP at that time. Patient is to be off anticoagulation until follow-up Pending Lab / Results: No Pending Lab Patient Instructions: Stay off Eliquis (Blood thinner) for at least 2 weeks. Will be up to PCP Dr Fishman when to resume Wound/Incision Care: N/A Pain Scale Utilized to Educate Patient: 0-10 Pain Scale Pain Management/Treatment: Sanborn as needed for pain control Expected Signs/Symptoms: Continued improvement in strength Notify Physician If: Severe weakness, active bleeding, fever, chills, abdominal pain or concerning symptoms During Business Hours:: Please call the physician's office After Business Hours:: Please call [phone] and have the office machine embossograph operator page the physician. Condition at time of discharge: Good Plan of Care Discharge Date 07/07/16 3:15pm Disposition 03 TO [facility] NOT [facility] (S[facility]) Instructions/Education Provided Colonoscopy (DC) Anemia (DC) Prescriptions See Medication Section Care Plan and Goals See Discharge Instructions Section Functional Status Query Response Date Recorded Mobility Status Ambulatory w/assist July 07, 2016 12:12pm Assistive Devices Four Wheeled Walker July 07, 2016 12:12pm Activity Limitations Weakness Fatigue Dizziness July 07, 2016 12:12pm Feeding Ability Independent July 07, 2016 12:12pm Toileting Ability Assist July 07, 2016 12:12pm Grooming Ability Assist July 07, 2016 12:12pm Dressing Ability Assist July 07, 2016 12:12pm Driving Ability Dependent July 07, 2016 12:12pm Housework Ability Assist July 07, 2016 12:12pm Meal Preparation Ability Assist July 07, 2016 12:12pm Stair Climbing Ability Assist July 07, 2016 12:12pm Ability to complete ADL's impeded by Impaired Mobility No change July 07, 2016 12:12pm Cognitive/Perceptual Impairments Impaired vision July 07, 2016 12:12pm Visual Assistive Devices Glasses With patient July 06, 2016 11:00am Preferred Method of Learning Reading Listening Hands on July 06, 2016 11:00am Allergies, Adverse Reactions, Alerts Allergen Type Severity Reaction Status Last Updated Phenylbutazone Allergy Mild HIVES (BUTAZOLIDIN - MANU DISC) Active Lansoprazole Adverse Reaction Mild DIARRHEA Active 06/02/16 Immunizations Query Response on File Recorded Date/Time Hx Influenza Vaccination Y jan 2015 06/30/16 11:01am Hx Pneumococcal Vaccination Y 02/201506/30/16 11:01am Hx Influenza Vaccination Y jan 2015 06/30/16 11:01am Influenza Vaccine Hx 12/201506/30/16 11:12am Tdap Vaccine Hx UNKNOWN 02/14/16 9:26am Vital Signs Acute Vital Signs Vital Response Date/Time Temperature (Fahrenheit) 97.9 deg F (96.8 - 99.1) 07/07/2016 11:55am Temperature (Calculated Celsius) 36.12475 degrees C (36.0 - 37.3) 07/07/2016 11:55am Pulse Rate (adult) 66 bpm (60 - 100) 07/07/2016 11:55am Respiratory Rate 18 breaths/min (10 - 20) 07/07/2016 11:55am O2 Sat by Pulse Oximetry 91 % (90 - 100) 07/07/2016 11:55am Oxygen Delivery Method Nasal Cannula 07/06/2016 10:00pm Oxygen Delivery Method Room Air 07/07/2016 11:55am Oxygen Flow Rate 1.00 L/min 07/06/2016 10:00pm Blood Pressure 133/64 mm Hg 07/07/2016 11:55am Blood Pressure Source Automatic Cuff 07/07/2016 11:55am Height (Feet) 5 feet 07/06/2016 1:09pm Height (Inches) 3.00 inches 07/06/2016 1:09pm Weight (Kilograms) 100.900 kg 07/07/2016 7:53am Body Mass Index (BMI) 37.6 06/30/2016 10:58am Results Laboratory Results Test Name Result Units Flags Reference Collection Date/Time Result Date/ Time Comments Unconjugated Bilirubin 0.00 MG/DL 0.00-1.10 05/08/2016 5:57am 2016 6:21am Conjugated Bilirubin 0.00 MG/DL 0.00-0.30 05/08/2016 5:57am 05/08/2016 6:21am Vitamin B12 Level 798 PG/ML 239-931 05/28/2016 6:00am 05/30/2016 3: 21am Folate 5.6 NG/ML 2.76-20 05/28/2016 6:00am 05/30/2016 3:21am NORMAL ADULT RANGE: 2.76->20 ng/mL White Blood Count 3.7 T/MM3 L 4.5-11.0 07/06/2016 4:38am 07/06/2016 5: 28am Red Blood Count 3.24 M/MM3 L 4.00-5.20 07/06/2016 4:38am 07/06/2016 5: 28am Hemoglobin 8.9 GM/DL L 12-16 07/06/2016 4:38am 07/06/2016 5:28am Hematocrit 29.8 % D L 36-46 07/06/2016 4:38am 07/06/2016 5:28am Mean Corpuscular Volume 92.0 UM3 80-100 07/06/2016 4:38am 07/06/2016 5: 28am Mean Corpuscular Hemoglobin 27.5 UUG 26-34 07/06/2016 4:38am 2016 5:28am Mean Corpuscular Hemoglobin Concent 29.9 GM/DL L 31-37 07/06/2016 4:38am 07/06/2016 5:28am RDW Standard Deviation 53.5 FL H 36.9-50.2 07/06/2016 4:38am 07/06/2016 5:28am Platelet Count 76 T/MM3 L 130-400 07/06/2016 4:38am 07/06/2016 5:28am Mean Platelet Volume 12.4 UM3 9.4-12.4 07/06/2016 4:38am 07/06/2016 5: 28am Neutrophils (%) (Auto) 59.8 % 33-66 07/06/2016 4:38am 07/06/2016 5: 28am Lymphocytes (%) (Auto) 26.5 % 23-45 07/06/2016 4:07/06/2016 5: 28am Monocytes (%) (Auto) 10.9 % H 0-9.0 07/06/2016 4:07/06/2016 5:28am Eosinophils (%) (Auto) 2.2 % 0-4 07/06/2016 4:07/06/2016 5:28am Basophils (%) (Auto) 0.3 % 0-2 07/06/2016 4:07/06/2016 5:28am Immature Granulocyte % (Auto) 0.3 % 0.0-0.5 07/06/2016 4:2016 5:28am Absolute Neutrophils (auto) 2.2 T/MM3 1.8-7.7 07/06/2016 4:2016 5:28am Absolute Lymphocytes (auto) 1.0 T/MM3 1-4.8 07/06/2016 4:2016 5:28am Absolute Monocytes (auto) 0.4 T/MM3 0-0.8 07/06/2016 4:07/06/2016 5:28am Absolute Eosinophils (auto) 0.1 T/MM3 0-0.5 07/06/2016 4:2016 5:28am Absolute Basophils (auto) 0.0 T/MM3 0-0.2 07/06/2016 4:07/06/2016 5:28am Absolute Immature Granulocyte (auto 0.01 T/MM3 0.00-0.03 07/06/2016 4: 07/06/2016 5:28am Neutrophils % (Manual) 66.0 % 33-66 07/02/2016 4:07/02/2016 5: 56am Lymphocytes % (Manual) 26.0 % 23-45 07/02/2016 4:07/02/2016 5: 56am Monocytes % (Manual) 8.0 % 0-9.0 07/02/2016 4:07/02/2016 5:56am Absolute Neutrophils (Manual) 2.8 T/MM3 1.8-7.7 07/02/2016 4:07/02 5:56am Lymphocytes # (Manual) 1.1 T/MM3 1-4.8 07/02/2016 4:29am 07/02/2016 5: 56am Monocytes # (Manual) 0.3 T/MM3 0-0.8 07/02/2016 4:29am 07/02/2016 5: 56am Red Cell Morphology Comment ABNORMAL 07/02/2016 4:2907/02/2016 5 :56am Anisocytosis 1+ 07/02/2016 4:29am 07/02/2016 5:56am Poikilocytosis 1+ 07/02/2016 4:2907/02/2016 5:56am Prothromb Time International Ratio 1.53 H 0.76-1.04 06/30/2016 7:28am 06/30/2016 11:39am THERAPUTIC RANGE=2.00-3.00 FOR ANTI-THROMBOSIS THERAPUTIC RANGE=2.50-3.50 FOR IMPLANTED VALVE Activated Partial Thromboplast Time 31.1 SEC 24-36 06/30/2016 7:28am 11:39am D-Dimer 870 NG/ML H 0-230 06/30/2016 7:37am 06/30/2016 8:33am <230 NG/ ML D-DU=PRESUMPTIVE NEGATIVE FOR PE OR DVT >230 NG/ML D-DU=ADDITIONAL EVAL FOR PE OR DVT RECOMMENDED Icterus Index < 2 0-7 07/06/2016 4:38am 07/06/2016 5:20am Chemistry Specimen Hemolysis < 15 0-25 07/06/2016 4:38am 07/06/2016 5 :20am 0-25: Specimen Exhibited No Hemolysis. Turbidity < 20 0-20 07/06/2016 4:38am 07/06/2016 5:20am Sodium Level 146 MEQ/L H 134-144 07/06/2016 4:38am 07/06/2016 5:20am Potassium Level 3.7 MEQ/L 3.6-5 07/06/2016 4:38am 07/06/2016 5:20am Chloride Level 109 MEQ/L H 98-107 07/06/2016 4:38am 07/06/2016 5:20am Carbon Dioxide Level 26 MEQ/L 22-30 07/06/2016 4:38am 07/06/2016 5: 20am Anion Gap 11 MEQ/L 5-15 07/06/2016 4:3807/06/2016 5:20am Blood Urea Nitrogen 17.0 MG/DL 7-17 07/06/2016 4:3807/06/2016 5: 20am Creatinine 0.8 MG/DL D 0.7-1.2 07/06/2016 4:3807/06/2016 5:41am BUN/Creatinine Ratio 21 RATIO 6-26 07/06/2016 4:3807/06/2016 5:20am Glomerular Filtration Rate Calc 69 07/06/2016 4:3807/06/2016 5: 20am Glucose Level 126 MG/DL H 65-110 07/06/2016 4:3807/06/2016 5:20am Calculated Osmolality 285 MOSM/KG H 261-280 07/06/2016 4:382016 5:20am Calcium Level 8.7 MG/DL 8.4-10.2 07/06/2016 4:3807/06/2016 5:20am Phosphorus Level 3.9 MG/DL 2.5-4.5 07/02/2016 4:2907/02/2016 5:19am Total Bilirubin 0.70 MG/DL 0.20-1.30 07/03/2016 4:07/03/2016 5: 29am Alkaline Phosphatase 45 U/L 38-126 07/03/2016 4:07/03/2016 5:29am Total Protein 5.7 G/DL L 6.3-8.2 07/03/2016 4:07/03/2016 5:29am Albumin 3.0 G/DL L 3.5-5.0 07/03/2016 4:07/03/2016 5:29am Globulin 2.7 G/DL 2.4-3.6 07/03/2016 4:2007/03/2016 5:29am Albumin/Globulin Ratio 1.1 RATIO 1.1-2.2 07/03/2016 4:07/03/2016 5 :29am Aspartate Amino Transf (AST/SGOT) 27 U/L 14-36 07/03/2016 4:202016 5:29am Alanine Aminotransferase (ALT/SGPT) 25 U/L 9-52 07/03/2016 4:2007/03 5:29am Troponin I < 0.012 ng/ml 0-0.12 07/05/2016 2:39pm 07/05/2016 3:09pm Troponin values with a difference of 55% increase from orginal troponin value represent a true biological DELTA value. (%increase Calc=Orginal Troponin value, divided by subsequent Troponin value, multiplied by 100) ZM-Hat-S-Type Natriuretic Peptide 2340 PG/ML H 0-175 06/30/2016 7:37am 06/30/2016 8:13am Rule in cut points: <50 years old=450; 50-75 years old=900; >75 years old=1800; When utilizing ProBNP rule-in cut points, adjustment for impaired renal function is typically not required. Lipase 82 U/L 23-300 06/30/2016 7:37am 06/30/2016 8:04am Magnesium Level 2.0 MG/DL 1.6-2.3 06/30/2016 7:37am 06/30/2016 8:04am Plasma Lactate 1.3 MMOL/L 0.6-2.2 07/02/2016 4:01pm 07/02/2016 4:24pm Procalcitonin 0.05 NG/ML 06/30/2016 7:37am 06/30/2016 8:34am PCT </= 0.5 ng/mL - sepsis not likely; PCT >0.5 and </=2 ng/mL - sepsis possible; PCT >2 ng/mL - sepsis likely; PCT >/=10 ng/mL - systemic inflammatory response - sepsis or septic shock highly indicated. Iron Level 21 UG/DL L 37-170 07/01/2016 10:08am 07/02/2016 2:20am Total Iron Binding Capacity 453 UG/DL 261-497 07/01/2016 10:08am 2016 2:18am Percent Iron Saturation 5 % L 9-55 07/01/2016 10:08am 07/02/2016 2:20am Thyroid Stimulating Hormone (TSH) 10.80 MIU/L H 0.47-4.68 06/30/2016 7: 37am 06/30/2016 8:32am Arterial Blood pH 7.380 7.350-7.450 07/02/2016 2:05pm 07/02/2016 2: 14pm Arterial Blood Partial Pressure CO2 46 MMHG H 34-45 07/02/2016 2:05pm 2:14pm Arterial Blood pO2 at Patient Temp 76 MMHG L 80-100 07/02/2016 2:05pm 2:14pm Arterial Blood HCO3 27 MEQ/L H 22-26 07/02/2016 2:05pm 07/02/2016 2: 14pm Arterial Blood Total CO2 28.6 MEQ/L H 23-27 07/02/2016 2:05pm 2016 2:14pm Arterial Blood Base Excess 1.6 MMOL/L -2.0-2.0 07/02/2016 2:05pm 2016 2:14pm Arterial Blood Oxygen Saturation 95.0 % 95.0-98.0 07/02/2016 2:05pm 02/2017 2:14pm Blood Gas Oxygen Liter Flow 3.0 07/02/2016 2:05pm 07/02/2016 2: 14pm Oxygen Delivery Method (LAB) NASAL CANNULA,LITERS 07/02/2016 2:05pm 07/02/2016 2:14pm Urine Collection Type VOIDED-NOT CC-MIDSTR 07/05/2016 6:39pm 2016 6:47pm Urine Color YELLOW YELLOW 07/05/2016 6:39pm 07/05/2016 6:47pm Urine Turbidity CLEAR CLEAR 07/05/2016 6:39pm 07/05/2016 6:47pm Urine Specific [place] 1.015 1.015-1.025 07/05/2016 6:39pm 2016 6:47pm Urine pH 5.0 5.0-8.0 07/05/2016 6:39pm 07/05/2016 6:47pm Urine Leukocyte Esterase NEGATIVE NEGATIVE 07/05/2016 6:39pm 2016 6:47pm Urine Nitrite NEGATIVE NEGATIVE 07/05/2016 6:39pm 07/05/2016 6:47pm Urine Protein NEGATIVE NEGATIVE 07/05/2016 6:39pm 07/05/2016 6:47pm Urine Glucose (UA) NEGATIVE NEGATIVE 07/05/2016 6:39pm 07/05/2016 6: 47pm Urine Ketones NEGATIVE NEGATIVE 07/05/2016 6:39pm 07/05/2016 6:47pm Urine Urobilinogen 0.2 EU/DL NORMAL 07/05/2016 6:39pm 07/05/2016 6: 47pm Urine Bilirubin NEGATIVE NEGATIVE 07/05/2016 6:39pm 07/05/2016 6: 47pm Urine Blood 2+ A NEGATIVE 07/05/2016 6:39pm 07/05/2016 6:47pm Urine WBC NONE SEEN /HPF 0-5 07/05/2016 6:39pm 07/05/2016 6:57pm Urine WBC Clumps MANY H 06/30/2016 9:05am 06/30/2016 9:52am Urine RBC 5-10 /HPF H 0-3 07/05/2016 6:39pm 07/05/2016 6:57pm Urine Squamous Epithelial Cells 0-5 07/05/2016 6:39pm 07/05/2016 6: 57pm Urine Transitional Epithelial Cells 0-1 /HPF 07/05/2016 6:39pm 2016 6:57pm Urine Bacteria TRACE H NEGATIVE 07/05/2016 6:39pm 07/05/2016 6:57pm Urine Hyaline Casts 1-3 /LPF 07/05/2016 6:39pm 07/05/2016 6:57pm Urine Culture Indicated CULT NOT INDICATED 07/05/2016 6:39pm 2016 6:57pm Microbiology Results Procedure Source Organism/Result Collection Date/Time Result Date/Time Result Status WOUND CULTURE DEEP TISS-AER/AN Toe, Right First DIPHTHEROID BACILLUS 2016 9:11am 05/04/2016 11:29am Final COAG NEGATIVE STAPHYLOCOCCUS 04/30/2016 9:11am 05/04/2016 11:29am Final Blood Culture Peripheral/Iv Start NO GROWTH AFTER 5 DAYS 06/30/2016 7:37am 07/05/2016 7:39am Final Urine Culture Urine, Voided-Not Cc-Midstream ENTEROBACTER CLOACAE 2016 9:52am 07/02/2016 7:46am Final Blood Culture Cath/Port/Line/Picc NO GROWTH AFTER 5 DAYS 07/02/2016 4:01pm 07/07/2016 4:03pm Final Name: BHAVNA LIU Unit #: [id number] : 1935 Sex: F DISCHARGE SUMMARY Admit Date: 06/30/16 Report #: [id number] [facility] DARRICK GLEASON V OIL WELL ENGINEER 07/07/16 1133: General Date Date DATE: 07/07/16 TIME: 11:29 Attending Physician Sun Burroughs MD Admitting Physician Sun Burroughs MD Consulting Physician Susy Shah MD,Facs,Cws Admitting Diagnosis acute blood loss anemia Discharge Diagnosis Sepsis, UTI GI bleed Anemia Chronic anticoagulation Procedures 07/02/16-colonoscopy performed by Dr. Shah Laboratory Laboratory Tests Test 07/06/16 04:38 White Blood Count 3.7T/MM3 (4.5-11.0) Red Blood Count 3.24M/MM3 (4.00-5.20) Hemoglobin 8.9GM/DL (12-16) Hematocrit 29.8% (36-46) Mean Corpuscular Volume 92.0UM3 (80-100) Mean Corpuscular Hemoglobin 27.5UUG (26-34) Mean Corpuscular Hemoglobin Concent 29.9GM/DL (31-37) RDW Standard Deviation 53.5FL (36.9-50.2) Platelet Count 76T/MM3 (130-400) Mean Platelet Volume 12.4UM3 (9.4-12.4) Immature Granulocyte % (Auto) 0.3% (0.0-0.5) Neutrophils (%) (Auto) 59.8% (33-66) Lymphocytes (%) (Auto) 26.5% (23-45) Monocytes (%) (Auto) 10.9% (0-9.0) Eosinophils (%) (Auto) 2.2% (0-4) Basophils (%) (Auto) 0.3% (0-2) Absolute Immature Granulocyte (auto 0.01T/MM3 (0.00-0.03) Absolute Neutrophils (auto) 2.2T/MM3 (1.8-7.7) Absolute Lymphocytes (auto) 1.0T/MM3 (1-4.8) Absolute Monocytes (auto) 0.4T/MM3 (0-0.8) Absolute Eosinophils (auto) 0.1T/MM3 (0-0.5) Absolute Basophils (auto) 0.0T/MM3 (0-0.2) Turbidity < 20 (0-20) Sodium Level 146MEQ/L (134-144) Potassium Level 3.7MEQ/L (3.6-5) Chloride Level 109MEQ/L (98-107) Carbon Dioxide Level 26MEQ/L (22-30) Anion Gap 11MEQ/L (5-15) Blood Urea Nitrogen 17.0MG/DL (7-17) Creatinine 0.8MG/DL (0.7-1.2) Glomerular Filtration Rate Calc 69 BUN/Creatinine Ratio 21RATIO (6-26) Glucose Level 126MG/DL (65-110) Calculated Osmolality 285MOSM/KG (261-280) Calcium Level 8.7MG/DL (8.4-10.2) Icterus Index < 2 (0-7) Chemistry Specimen Hemolysis < 15 (0-25) Microbiology RUN DATE: 07/02/16 [facility] PAGE 1 RUN TIME: [id number] [facility] [place] [address] CLIA# [id number] Laboratory Specimen Report PATIENT: BHAVNA LIU Act#:[id number] Loc: NAFISA 5- P Specimen: [id number] Collected: 06/30/16 Received: 06/30/[address]: LAWRENCE ALMONTE MD Source: URVOID Procedure Result Verified MICROBIOLOGY URINE CULTURE. Final 07/02/16 Organism 1 ENTEROBACTER CLOACAE COLONY COUNT >100,000 CFU/ml E CLOACAE INTERP ROSHAN ------ --------- AMOX/CLAV ACID R >=32 CEFAZOLIN R >=64 CEFEPIME S <=1 CEFTAZIDIME S <=1 CEFTRIAXONE S <=1 CIPROFLOXACIN S <=0.25 ERTAPENEM S <=0.5 GENTAMICIN S <=1 LEVOFLOXACIN S 1 NITROFURANTOIN S 32 TOBRAMYCIN S <=1 TRIMETH/SULFA R >=320 PIPERACILL/TAZO S <=4 URINE CULTURE. Preliminary (changed) 07/01/16 Organism 1 GRAM NEGATIVE ALF COLONY COUNT >100,000 CFU/ml URINE CULTURE. Preliminary (changed) 06/30/16 CULTURE INITIATED - RESULTS PENDING L=Low, H=High, *L=Critical Low, *H=Critical High, A=Abnormal, *A=Critical Abnormal, D=Delta PATIENT: BHAVNA LIU Age/Sex: 80/F Loc: U 5- P : 1935 Status: ADM IN Unit#: [id number] Attending Dr: SUN UBRROUGHS MD PATIENT: BHAVNA LIU Act#:[id number] Loc: SRG 130-P Specimen: [id number] Collected: 07/02/16 Received: 07/02/[address]: SUN BURROUGHS MD Source: CATH/PORT Procedure Result Verified MICROBIOLOGY BLOOD CULTURE. Preliminary 07/06/16-1602 NO GROWTH AFTER 4 DAYS BLOOD CULTURE. Preliminary (changed) 07/05/16-1602 NO GROWTH AFTER 72 HOURS BLOOD CULTURE. Preliminary (changed) 07/04/16-1602 NO GROWTH AFTER 48 HOURS BLOOD CULTURE. Preliminary (changed) 07/03/16-1602 NO GROWTH AFTER 24 HOURS BLOOD CULTURE. Preliminary (changed) 07/02/16-160 CULTURE INITIATED - RESULTS PENDING Radiology 06/30/16-- Chest Xray- Picc line check 07/07/16- CTA revealed no pulmonary emboli, small right and trace left pleural effusions 07/02/16- venous duplex of the right upper extremity revealed a nonocclusive superficial thrombophlebitis at the PIC line insertion site. No DVT History of Present Illness Patient is a pleasant 80-year-old female who was brought to the emergency room today for evaluation of significant weakness. She reports that she has not felt well for the last several days. On Tuesday 06/27. She did have some diarrhea stools, over the next several days, she continued to have worsening weakness and was brought to the emergency room this morning for further evaluation and treatment. Laboratory studies and CT scan were obtained in the emergency room, and patient was found to be significantly anemic with a hemoglobin of 6.2. WBC count 4.5, RBCs 2.41, hematocrit 22.7, platelet count 92. Sodium is 143, potassium 5.0, BUNs 20, creatinine 1.4, cochlea did osmolality 281. LFTs are normal. Troponin was undetectable, proBNP 10/06/39. Venous lactate was found to be elevated at 2.5, pro calcitonin 0.05, TSH 10.80. INR 1.53, platelet count 31.1. A urinalysis was obtained showing 2+ protein, 3+ blood, positive nitrates, 1+ leukocyte esterase, 30-50 RBCs with 2 numerous to count WBCs with clumps present. Chest x-ray was initially obtained. Obtained showing nonspecific bibasilar opacities or fibrosis. Given the elevated d-dimer of 870 CT of the chest was obtained which did reveal small right and trace left pleural effusions. Otherwise, no evidence of pulmonary emboli. Given symptomatic weakness, accompanied with significant anemia and presence of sepsis/UTI. The hospitalist services were contacted and accepted patient for inpatient admission to the ICU for further evaluation and treatment. It is expected that her stay will be greater than 2 overnights. Bhavna is seen today for inital examination. She is pale in color and appears weak. She reports she has not felt well for " a year" since she was admitted and treated for sepsis. He notes this was the beginning of a significant overall decline for her last June. Was unable to return home independently after that illness. Acutely she has not felt well for the last 3- 4 days. She reports just feeling significantly weak. Did have some mild amount of diarrhea last Tuesday 06/27, however, this resolved. She denies any acute bleeding in her stools. Was able to review old records and it appears that patient had seen for "liver failure" in 2016. He he recommended a liver sonogram every 6 months. Last office visit was in September 2015. Hospital Course 06/30 Admit patient to inpatient status under the care of Dr Burroughs for Sepsis with UTI and Anemia Patient started on Rocephin 1 mg IV while in the ER. Will continue with daily dosing. Urine and blood cultures pending. Follow serial lactate levels as per sepsis protocol. Patient is type, screen and crossmatched for 1 unit of packed red blood cells transfusion given anemia. Patient is chronically on Eliquis for chronic atrial fibrillation. She denies having black stools and attributes some red stools to Hemorrhoids Surgical consultation by Dr. Shah In light of anemia. Patient may have clear liquid diet now. Will follow platelet count as patient does have thrombocytopenia, however, this appears to be chronic. She does see Dr. Zuniga for chronic anemia since her breast cancer in 2008. Plt count in in 80-90's. Will obviously need to hold all anticoagulation given anemia with probably Gi bleeding. CHADS2 score 5.9% (moderate risk) SCDs to bilateral lower ext for DVT prophylaxis Will need to discuss and review all home medications with attending, Dr Burroughs. Recheck CBC and a BMP tomorrow morning to follow blood counts, renal function, electro-lites. At time of discharge medical care will return to primary care provider, Dr. Taveras 06/30/2016-I reviewed this chart, the patient history, and the OIL WELL ENGINEER's/PA's documented findings as above. We discussed and formulated the assessment and plan as above with the additions below.-Dr. Burroughs Patient was seen and examined independently in the CCU this afternoon. She states she is feeling progressively more fatigued over the past 2-3 days. She's developed shortness of breath with activities. She also has a fullness and tenderness in her abdomen. She has had no fevers, chills or sweats. She has had some occasional dysuria. She's not had any nausea or vomiting. She has normally brown colored stools but has had some red blood which she attributes to hemorrhoids. She is not able to give herself the suppositories to help with hemorrhoids has of shoulder pains. This morning her hemoglobin was 6.2. She chronically has anemia with hemoglobin in the 9.3 range. She had vitamin B- 12 and folate levels checked here in May and they were normal. The patient also has history of unknown type of liver disease for which she sees Dr. Horvath. She is on Xifaxan she is on prednisone chronically for knee pains and back pain. On exam she is alert and oriented 3 and in no acute distress. She has received 1 unit of blood. Currently heart rate is 60 and O2 sat is 94% on room air. HEENT reveals sclerae to be anicteric and oropharynx is moist. Neck is supple. Chest is clear to auscultation. Cardiovascular reveals a regular rate and rhythm. Abdomen is soft and mildly tender in the epigastrium. Abdomen is mildly distended. Bowel sounds are normoactive. Extremities are free of clubbing cyanosis or edema. Lab work was reviewed. Lactate was elevated at 2.5 this morning and on repeat is 1.6. Pro-calcitonin 0.05. TSH is elevated at 10.8. Impression Anemia chronic with acute worsening GI bleed with bright red blood likely from hemorrhoids which is chronic, cannot rule out an acute upper or lower GI bleed Abdominal pain Sepsis -with elevated lactate, improved UTI-start Rocephin History of liver disease-possible cirrhosis-continue rifaximin Paroxysmal A. fib for which she is on eliquis-this will be on hold for gi bleed. Continue amiodarone and atenolol CHF-EF 55% Chronic kidney disease Hypertension Chronic pain on chronic narcotics Chronic prednisone use Dementia Hypothyroidism Patient was admitted to CCU. With her chronic anemia we'll go ahead and give 2 units of blood today. PICC line is being placed for poor IV access. B-12 and folate were normal last month. We'll check iron studies. Dr. Shah has been consulted and plans for EGD tomorrow. We' ll place the patient on proton pump inhibitor IV. Will obtain serial hemoglobin will stay 2 units ahead. Will continue usual steroids but keep in mind she may need stress dose steroids if she has any worsening. Regarding UTI with elevated lactate, Rocephin has been started and the patient was given IV fluids. Lactate has normalized. The patient will remain here in CCU for close monitoring overnight. 07/01/2016 Impression Anemia or acute on chronic-improved post transfusion of 2 units of blood yesterday GI bleed with bright red blood likely from hemorrhoids which is chronic, await results of EGD Abdominal pain Sepsis -with elevated lactate, improved UTI-start Rocephin-GNR in urine History of liver disease-possible cirrhosis-continue rifaximin Paroxysmal A. fib for which she is on eliquis-this will be on hold for gi bleed. Continue amiodarone and atenolol CHF-EF 55% Chronic kidney disease Hypertension Chronic pain on chronic narcotics Chronic prednisone use Dementia Hypothyroidism Mild hyperkalemia-should improve with Bumex Continue serial hemoglobins. Restart Bumex. DC IV fluids. Discuss with Dr. Shah later today regarding EGD results and whether or not colonoscopy is needed. Patient states she underwent a colonoscopy in the summer of 2015 at the [facility] and we will try to obtain results. Creatinine has improved from yesterday with IV fluids. PT and OT eval. Continue to hold anticoagulation. SCDs for DVT prophylaxis. 07/03/16 Anemia -- acute on chronic-hgb decreased slightly this am. Recheck this evening. Pt feeling better, with more strength. GI bleed -Appears stable, rechecking cbc this evening. Sepsis -with elevated lactate-resolved Perfusion issues-- PICC line removed right arm and Midline in left. However, skin changes with redness and "heat" of skin reoccurred on left. Pt is post mastectomy left, but unlikely to contribute and unlikely to be cellulitis due to nl wbc and equal reaction on both sides with line. Likely reaction to sheath or med. Follow tonight and reeval in am, warm compress. Spoke with p erfusion nurse. GRL-Jwisuzxnhczo-okpvsujna to Rocephin, cont with IV meds. Paroxysmal A. fib for which she is on eliquis- HELD. 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 Continue on cardiac medications including amiodarone, Atenolol. Hgb remains stable at 8.0. Appreciate Dr Shah's involvement and colonoscopy. Pathology is pending. Continue Protonix IV daily for GI protection Chronic anticoagulation remains stopped given significant anemia and concern for GI bleeding Will consult PT/OT for to get her up and moving given weakness. We'll discuss further plan of care with attending, Dr Funez 07/05 Plan Check troponin regarding back pain Continue Rocephin, tomorrow is day 7 and can discontinue after tomorrow's dose. Recheck vitals with patient sitting up, hemoglobin is somewhat labile. May need 1 more unit of blood Consider IV iron, possibly tomorrow Increase activity as tolerated Increase Sanborn 10-1 every 4-6 hours as needed Probably back to the shelter on Thursday07/06/16 Overall, Gamal is doing well. Continue to monitor hemoglobin. Today, hemoglobin is 8.9 Consult placed with pharmacy for IV iron replacement for chronic anemia Today is day 7 of Rocephin for treatment of urinary tract infection. Can likely discontinue soon. Continue to encourage ambulation and activity Will recheck CBC and BMP to follow blood counts, renal function and electrolytes tomorrow. Hopeful for discharge in the near future 07/07/16-discharge Bhavna is doing well and is excited about discharge today. She has completed 7 full days of Rocephin for treatment of Enterobacter Cloacae urinary tract infection. Her hemoglobin has stabled. She did receive a total of 3 units of packed red blood cells transfusions as well as IV iron during her hospitalization. No continued GI bleeding. She will be discharged to [facility] for ongoing rehabilitation. It is recommended that she continue to stay off of her a liquids anticoagulation for at least another 2 weeks. At that time she will need to follow with primary care provider, Dr. Ronald Fishman to discuss risk versus benefit of chronic anticoagulation. This is a general summation of the patients hospital course. Please refer to the medical record if additional detail is needed. Total discharge time greater 40 minutes Problems: (1) Sepsis Status: Resolved Assessment & Plan: Magnifications of sepsis include the following- 1. UTI 2. Elevated Lactate- 2.5 3. Tachypneic 28/min (2) Anemia Status: Acute Assessment & Plan: May angiogram ordered for recheck, anemia stable. We'll review hemoglobin prior to leaving [facility]. (3) Thrombocythemia Status: Chronic Assessment & Plan: Likely chronic (4) UTI (lower urinary tract infection) Status: Acute Assessment & Plan: Acute (5) HTN (hypertension) Status: Chronic (6) GERD (gastroesophageal reflux disease) Status: Chronic (7) Hypothyroidism Status: Chronic (8) Depression Status: Chronic (9) Osteoarthritis Status: Chronic (10) CHF following non-cardiac surgery, postop Status: Chronic (11) Anticoagulated Status: Chronic (12) Cirrhosis Status: Chronic (13) Paroxysmal atrial fibrillation Status: Chronic (14) CKD (chronic kidney disease), stage III Status: Chronic (15) Chronic back pain Status: Chronic (16) Invasive ductal carcinoma of breast, stage 2 Onset Date: ~ 2006 Status: Chronic Code Status Do Not Resuscitate Home Meds Active Scripts Hydrocodone/Acetaminophen (Sanborn 10-325 Tablet) 1 Each Tablet, 1 TAB PO Q6H Y for PRN ORDERS, #30 TAB Prov:TORRES MARTINEZDARRICK V OIL WELL ENGINEER 07/07/16 Omeprazole (Prilosec) 20 Mg Capsule, 20 MG PO ACBID, #0 CAP Prov:KURTIS FOOTE MD 07/09/15 Amiodarone HCl (Amiodarone HCl) 200 Mg Tablet, 200 MG PO DAILY for atrial fibrillation, #0 TAB Prov:KURTIS FOOTE MD 07/09/15 Reported Medications Melatonin (Melatonin) 3 Mg Tablet, 5-10 MG PO HS Y for AL, #30 TAB 2 Refills 06/30/16 Mirabegron (Myrbetriq) 25 Mg Tab.er.24h, 25 MG PO DAILY, TAB 06/30/16 Prednisone (Prednisone) 5 Mg Tablet, 7.5 MG PO WB, TAB Take 1 1/2 (5 mg) tablets, by mouth, one time a day with breakfast. 06/30/16 Atenolol (Atenolol) 50 Mg Tablet, 1 TAB PO DAILY, TAB 06/30/16 Acetaminophen (Tylenol) 325 Mg Tablet, 1-2 TAB PO PRN, #60 TAB 2 Refills 06/30/16 Bumetanide (Bumetanide) 0.5 Mg Tablet, 1 TAB PO BID, TAB 06/01/16 Donepezil HCl (Donepezil HCl) 5 Mg Tablet, 1 TAB PO HS, #30 TAB 5 Refills 06/01/16 Rifaximin (Xifaxan) 550 Mg Tablet, 550 MG PO BID, TAB 06/01/16 Potassium Chloride (Potassium Chloride) 10 Meq Capsule.er, 2 CAP PO BIDWM, CAP Take 1 capsule, by mouth, two times a day with meals 06/01/16 Polyethylene Glycol 3350 (Miralax) 17 Gm Powd.pack, 1 PACKET PO DAILY Y for CONSTIPATION, #30 PACKET 3 Refills 06/01/16 Ospemifene (Osphena) 60 Mg Tablet, 60 MG PO DAILY 07/05/15 Levothyroxine Sodium (Levothyroxine Sodium) 112 Mcg Tablet, 112 MCG PO ACB, TAB Once daily before breakfast. 07/05/15 Calcium Carbonate/Vitamin D3 (Calcium 600 + Vit D Caplet) 1 Each Tablet, PO DAILY 10/16/14 Pramipexole Di-HCl (Mirapex) 1 Mg Tablet, 1 MG DAILY 04/19/14 Divalproex Sodium (Divalproex Sodium) 500 Mg Tablet.dr, 500 MG PO DAILY, #90 11/23/13 Sertraline Hcl (Zoloft) 100 Mg Tablet, 100 MG PO DAILY, 0 Refills 09/27/09 Discontinued Reported Medications Apixaban (Eliquis) 5 Mg Tablet, 5 MG PO BID, #180 11/23/13 Face to Face Encounter I met with patient on the day of dismissal and discussed follow up appointments , medications, and safety plan. Discharge Disposition stable Copies To 1: RONALD TAVERAS DOYLE D MD 07/07/16 1216: Hospital Course Home Meds Active Scripts Hydrocodone/Acetaminophen ([place]born 10-325 Tablet) 1 Each Tablet, 1 TAB PO Q6H Y for PRN ORDERS, #30 TAB Prov:DARRICK GLEASON V OIL WELL ENGINEER 07/07/16 Omeprazole (Prilosec) 20 Mg Capsule, 20 MG PO ACBID, #0 CAP Prov:KURTIS FOOTE MD 07/09/15 Amiodarone HCl (Amiodarone HCl) 200 Mg Tablet, 200 MG PO DAILY for atrial fibrillation, #0 TAB Prov:KURTIS FOOTE MD 07/09/15 Reported Medications Melatonin (Melatonin) 3 Mg Tablet, 5-10 MG PO HS Y for AL, #30 TAB 2 Refills 06/30/16 Mirabegron (Myrbetriq) 25 Mg Tab.er.24h, 25 MG PO DAILY, TAB 06/30/16 Prednisone (Prednisone) 5 Mg Tablet, 7.5 MG PO WB, TAB Take 1 1/2 (5 mg) tablets, by mouth, one time a day with breakfast. 06/30/16 Atenolol (Atenolol) 50 Mg Tablet, 1 TAB PO DAILY, TAB 06/30/16 Acetaminophen (Tylenol) 325 Mg Tablet, 1-2 TAB PO PRN, #60 TAB 2 Refills 06/30/16 Bumetanide (Bumetanide) 0.5 Mg Tablet, 1 TAB PO BID, TAB 06/01/16 Donepezil HCl (Donepezil HCl) 5 Mg Tablet, 1 TAB PO HS, #30 TAB 5 Refills 06/01/16 Rifaximin (Xifaxan) 550 Mg Tablet, 550 MG PO BID, TAB 06/01/16 Potassium Chloride (Potassium Chloride) 10 Meq Capsule.er, 2 CAP PO BIDWM, CAP Take 1 capsule, by mouth, two times a day with meals 06/01/16 Polyethylene Glycol 3350 (Miralax) 17 Gm Powd.pack, 1 PACKET PO DAILY Y for CONSTIPATION, #30 PACKET 3 Refills 06/01/16 Ospemifene (Osphena) 60 Mg Tablet, 60 MG PO DAILY 07/05/15 Levothyroxine Sodium (Levothyroxine Sodium) 112 Mcg Tablet, 112 MCG PO ACB, TAB Once daily before breakfast. 07/05/15 Calcium Carbonate/Vitamin D3 (Calcium 600 + Vit D Caplet) 1 Each Tablet, PO DAILY 10/16/14 Pramipexole Di-HCl (Mirapex) 1 Mg Tablet, 1 MG DAILY 04/19/14 Divalproex Sodium (Divalproex Sodium) 500 Mg Tablet.dr, 500 MG PO DAILY, #90 11/23/13 Sertraline Hcl (Zoloft) 100 Mg Tablet, 100 MG PO DAILY, 0 Refills 09/27/09 Discontinued Reported Medications Apixaban (Eliquis) 5 Mg Tablet, 5 MG PO BID, #180 11/23/13 Face to Face Encounter Have independently interviewed and examined pt. Chart reviewed. Case discussed with CM and my OIL WELL ENGINEER. Care plan developed with my supervision; agree with above. Doing well today. Breathing well. No chest pressure or pain. Not having ab pain or nausea. Strength gradually improving. Lungs; clear CV: regular AB: soft nt/nd MSE: awake alert appropriate Plan: Will d/c to residential. Bold thinners stopped - hold at least 2 weeks. Encourage therapy. See orders for details. Copies To 1: RONALD TAVERAS JULIE V APRN Jul 07, 2016 11:33 JUAN CARLOS JOSE MD Jul 07, 2016 12:16 Procedures Procedure Status Date Provider(s) Routine venipuncture Completed 04/16/16 Complete cbc w/auto diff wbc Completed 04/16/16 [id number] TRIP CHARGE. Completed 04/16/16 Coni subq tissue 20 sq cm/< Completed 04/30/16 Culture othr specimn aerobic Completed 04/30/16 Cultr bacteria except blood Completed 04/30/16 Culture type immunologic Completed 04/30/16 Smear gram stain Completed 04/30/16 968285"BORDER, EACH DRESSING" Completed 04/30/16 E&M LEVEL - FACILITY Completed 04/30/16 Coni subq tissue 20 sq cm/< Completed 05/14/16 [id number]"BORDER, EACH DRESSING" Completed 05/14/16 Routine venipuncture Completed 05/08/16 Hepatic function panel Completed 05/08/16 Complete cbc w/auto diff wbc Completed 05/08/16 Prothrombin time Completed 05/08/16 [id number] TRIP CHARGE. Completed 05/08/16 Routine venipuncture Completed 05/14/16 Comprehen metabolic panel Completed 05/14/16 Complete cbc w/auto diff wbc Completed 05/14/16 Prothrombin time Completed 05/14/16 [id number] TRIP CHARGE. Completed 05/14/16 E&M LEVEL - FACILITY Completed 05/28/16 Routine venipuncture Completed 05/28/16 Vitamin b-12 Completed 05/28/16 Assay of folic acid serum Completed 05/28/16 Hematocrit Completed 05/28/16 Hemoglobin Completed 05/28/16 [id number] TRIP CHARGE. Completed 05/28/16 Control of nosebleed Completed 06/01/16 IVONE MILLS DO Emergency dept visit Completed 06/01/16 Urinalysis auto w/scope Completed 06/03/16 Complete cbc w/auto diff wbc Completed 06/03/16 Prothrombin time Completed 06/03/16 Esophagogastroduodenoscopy (EGD) with closed biopsy Completed 07/01/16 SUSY SHAH MD, FACS, CWS Colonoscopy with polypectomy and biopsy Completed 07/02/16 SUSY SHAH MD, FACS, CWS Encounters Encounter Location Arrival/Admit Date Discharge/Depart Date Attending Provider Discharged Inpatient [facility] 06/30/16 10:27am 07/07/16 3:15pm SUN BURROUGHS MD Registered Clinic [facility] 06/03/16 11:02am PAOLA HORVATH Departed Emergency Room [facility] 06/01/16 10:58pm 06/02/16 12: 43am IVONE MILLS DO Registered [facility] 05/28/16 8:37am SHAMA SULLIVAN MD Registered [facility] 05/28/16 12:25am PAOLA HORVATH [facility] 05/14/16 8:27am SHAMA SULLIVAN MD Registered [facility] 05/14/16 12:58am PAOLA HORVATH [facility] 05/08/16 12:37am RONALD TAVERAS DO [facility] 04/30/16 8:27am SHAMA SULLIVAN MD [facility] 04/16/16 2:38am WILLIE ZUNIGA MD
--- OUTSIDE RECORDS SUMMARY | 2016-07-11 14:45 | XMS REPORT | Continuity of Care Document ---
Author Author [facility] Organization [facility] Address Unknown Phone Unavailable Support Name Relationship Address Phone TERRY MALHOTRA MD Caregiver [address] [place] [address] Ext [phone] MYLENE GARCIA MD Caregiver [address] [place] [address] [address] [place], [place] [phone] TAMI LIU DPOA Next Of Kin [address] [place], [place] [id number] Insurance Providers Payer Name Policy Number Subscriber Name Relationship Medicare [id number] Andie Liu [address] [facility] Other [id number] Andie Liu 18 Self [facility] [id number] Andie Liu 18 Self Advance Directives Directive Response Recorded Date/Time Ordered Resuscitation Status Full Code 04/19/14 7:30am Resuscitation Documents on File No 04/19/14 9:20am Chief Complaint and Reason for Visit Chief Complaint General Reason for Visit [id number] Gastroenteritis Hypokalemia Problems Medical Problems Problem Onset [...] Date 02/04/14 1:09pm Disposition 02 TO OBS [facility] Condition at Discharge Stable Instructions/Education Provided DI for Hypokalemia DI for Bacterial Gastroenteritis -- Adult Prescriptions See Medications Section Referrals MYLEEN GARCIA MD Functional Status Query Response Date [...] F (96.8 - 99.1) Temperature (Calculated Celsius) 35.52303 degrees C (36.0 - 37.3) Temperature Source [...] March 20, 2009 3:14pm Complete - FAX [phone] Eosinophils # (Auto) February 04, 2014 6:18am [...] 08, 2013 7:36pm LAB TEST FORM REQUEST [id number] - Lactate Dehydrogenase March 20, 2009 3:15pm [...] 04, 2014 6:18am 10.2 % H 0-9.0 LF-Jkz-W-Type Natriuretic Peptide December 02, 2013 3:55pm 1720 [...] 20, 2009 2:45pm Not done - PLEASE PROFESSOR OF ENVIRONMENTAL STUDIES Thyroid Stimulating Hormone (TSH) November 23, 2013 [...] Has specimen been collected/obtained? Y Urine Specific [place] February 02, 2014 4:11pm 1.020 - Has [...] 2012 7:06pm Name: ANDIE LIU Unit #: [id number] : 1935 Sex: F Loc / Svc: SRG DOS: 04/19/14 Signed Report #: [id number] DIAGNOSTIC IMAGING REPORT TYPE OF EXAM: CT [...] mild central canal narrowing. Severe right and atmq-lu-gsukeutq left neural foraminal stenosis L2-L3: Posterior decompression. [...] 02/08/14 Encounters Encounter Location Date/Time Departed Clinic [facility] 04/19/14 8:56am Registered Clinic [facility] 02/08/14 8:34am Discharged Inpatient [facility] 02/03/14 6:28pm
--- OUTSIDE RECORDS SUMMARY | 2016-07-11 14:45 | XMS REPORT | Continuity of Care Document ---
Author Author [facility] Organization [facility] Address Unknown Phone Unavailable Allergies Active Description Code Type Severity Reaction Onset Reported/Identified Relationship to Patient Clinical Status Yes Prevacid 80981 Unknown N/A 08/18/2014 Yes lansoprazole lansoprazole Drug [...] Deyvi Reza MD 414.01 CORONARY ATHEROSCLEROSIS OF [place] CORONARY VESSEL 09/21/2014 Deyvi Reza MD 416.8 [...] CAROLIN SMITH 04/07/2016 CAROLIN SMITH Z79.899 OTHER TOE FORMER (CURRENT) DRUG THERAPY CAROLIN SMITH Procedures Code [...] Status Pt. Type Provider Facility Loc./Unit Complaint [id number] 10/10/2015 15:15:00 2015 15:15:00 CAN Outpatient Alyssia DOWNING, [facility] W.RODGER [id number] 10/05/2015 12:15:00 2015 16:35:00 DIS Outpatient Alyssia DOWNING, [facility] W.JOHANNE [id number] 09/21/2014 05:06:00 2014 14:16:00 DIS Inpatient Juaquin DOWNING, [facility] W.9TN [id number] 09/14/2014 10:34:00 2014 10:34:00 DIS Outpatient Juaquin DOWNING, [facility] W.POA [id number] 09/11/2015 10:30:00 PEN Outpatient Alyssia DOWNING, [facility] W.END [id number] 08/31/2015 05:31:00 Document Registration
--- OUTSIDE RECORDS SUMMARY | 2016-07-11 14:48 | XMS REPORT | Continuity of Care Document ---
Author Author [facility] Organization [facility] Address Unknown Phone Unavailable Support Name Relationship Address Phone SHAMA SULLIVAN MD Caregiver [address] [place] [phone] MYLENE GARCIA MD Caregiver [address] [place] [address] [phone] TAMI LIU Next Of Kin [address] [place] [address] Insurance Providers Payer Name Policy Number Subscriber Name Relationship Medicare [id number] Andie Liu 18 Self [facility] Other [id number] Andie Liu 18 Self [facility] [id number] Andie Liu 18 Self Advance Directives Directive [...] up lab - come to lab at [facility] on Monday December 02, 2013 to have [...] of your legs. 3.During office hours, call [phone] 4. After hours, please call [facility] at [phone], and have the screw machine operator swiss type page your Surgeon IN THE EVENT OF [...] F (96.8 - 99.1) Temperature (Calculated Celsius) 36.48185 degrees C (36.0 - 37.3) Temperature Source [...] March 20, 2009 3:14pm Complete - FAX [phone] Eosinophils # (Auto) November 24, 2013 4:55am [...] 10, 2013 7:24pm LAB TEST FORM REQUEST [id number] - Lactate Dehydrogenase March 20, 2009 3:15pm [...] 24, 2013 4:55am 13.2 % H 0-9.0 ZW-Ogp-Y-Type Natriuretic Peptide November 23, 2013 12:44pm 585 [...] 20, 2009 2:45pm Not done - PLEASE CLOTH EXAMINER MACHINE Thyroid Stimulating Hormone (TSH) November 23, 2013 [...] Has specimen been collected/obtained? Y Urine Specific [place] November 23, 2013 2:15pm >=1.030 H - [...] 2012 7:06pm Name: ANDIE LIU Unit #: [id number] : 1935 Sex: F Loc / Svc: MED DOS: 11/23/13 Signed Report #: [id number] DIAGNOSTIC IMAGING REPORT TYPE OF EXAM: CHEST, [...] procedures. Encounters Encounter Location Date/Time Discharged Inpatient [facility] 11/23/13 4:12pm Registered Clinic [facility] 10/24/13 8:06am Recent Diagnosis Acute kidney injury
--- OUTSIDE RECORDS SUMMARY | 2016-07-11 14:48 | XMS REPORT | Continuity of Care Document ---
Author Author [facility] Organization [facility] Address Unknown Phone Unavailable Support Name Relationship Address Phone TAMI LIU Next Of Kin [address] [place] [address] Unavailable Insurance Providers Payer Name Policy Number Subscriber Name Relationship [facility] [id number] Andie Liu Self Medicare [id number] Andie Liu Self [facility] Other [id number] Andie Liu Self Problems No Known Problems [...] Congestive Heart Failure N HAS BEEN DEBATED, "ASSISTANT DISTRICT ATTORNEY SAYS NO" 4:13pm Hx Heart Attack N [...] 2:20pm 45 MEQ/L N 30-90 Urine Specific [place] October 13, 2011 5:20pm 1.010 L - [...] 30, 2012 8:15am 0.2 % N 0.0-0.5 MZ-Kpx-H-Type Natriuretic Peptide October 13, 2011 5:25pm 1240 PG/ML H 0-175 Urine Microscopic Not Indicated October 13, 2011 5:20pm Not indicated - Procedures Procedure Code Date PARTICAL MASTECTOMY 24799 08/31/08 BIOPSY/REMOVAL LYMPH NODES 88227 08/31/08 RA TRACER ID OF SENTINL NODE 98613 08/31/08 PACKED CELL TRANSFUSION 99.04 04/24/09 INCISION OF NOSE 21.1 10/14/11 REPAIR OF NASAL SEPTUM 69920 02/06/12 THER FX NASAL INF TURBINATE 03344 02/06/12 [id number] CANCER SCREENING; COLONOSCOPY ON INDIVIDUAL G0121 06/04/12 MUSCULOSKELETAL SURGERY 24709 09/30/12 Blood Culture 10/13/11 Eye/Ear/Nose/Throat Culture 10/13/11 Encounters Encounter Location Date/Time Discharged Inpatient [facility] 10/13/11 4:58pm
--- OUTSIDE RECORDS SUMMARY | 2016-07-11 14:49 | XMS REPORT | Continuity of Care Document ---
Author Author [facility] Organization [facility] Address Unknown Phone Unavailable Support Name Relationship Address Phone MYLENE GARCIA MD Caregiver [address] [place] [phone] LAWRENCE ALMONTE MD Caregiver [address] [place] [address] TAMI LIU DPOA Next Of Kin [address] [place] [address] Insurance Providers Payer Name Policy Number Subscriber Name Relationship Medicare [id number] Andie Liu 19 Self [facility] Other [id number] Andie Liu Self [facility] [id number] Andie Liu Self Advance Directives Directive Response [...] of your legs. 3.During office hours, call [phone] 4. After hours, please call [facility] at [phone], and have the yard operator page your Surgeon IN THE EVENT [...] F (96.8 - 99.1) Temperature (Calculated Celsius) 36.48977 degrees C (36.0 - 37.3) Temperature Source [...] March 20, 2009 3:14pm Complete - FAX [phone] Eosinophils # (Auto) February 04, 2014 6:18am [...] 08, 2013 7:36pm LAB TEST FORM REQUEST [id number] - Lactate Dehydrogenase March 20, 2009 3:15pm [...] 04, 2014 6:18am 10.2 % H 0-9.0 DF-Wcc-V-Type Natriuretic Peptide December 02, 2013 3:55pm 1720 [...] 20, 2009 2:45pm Not done - PLEASE WIRE SPIRAL BINDER Thyroid Stimulating Hormone (TSH) November 23, 2013 [...] Has specimen been collected/obtained? Y Urine Specific [place] February 02, 2014 4:11pm 1.020 - Has [...] 2012 7:06pm Name: ANDIE LIU Unit #: [id number] : 1935 Sex: F Loc / Svc: ED DOS: 02/02/14 Signed Report #: [id number] DIAGNOSTIC IMAGING REPORT TYPE OF EXAM: CT [...] procedures. Encounters Encounter Location Date/Time Discharged Inpatient 02/03/14 6:28pm Registered Clinic 12/08/13 12:17pm Registered [facility] 12/02/13 4:56pm Discharged Inpatient 11/23/13 4:12pm Recent Diagnosis Gastroenteritis
[2016-07-11] MEDS ORDERED: OMEP-122 PO (15:19)
[2016-07-11] MEDS ORDERED: OSPE60TA2 PO (15:19)
[2016-07-11] MEDS ORDERED: AMIO200T2 PO (15:19)
[2016-07-11] MEDS ORDERED: BUME1TAB17 PO (15:19)
[2016-07-11] MEDS ORDERED: POTA-81 PO ×2 (15:22)
--- OUTSIDE RECORDS SUMMARY | 2016-07-11 15:22 | XMS REPORT | Continuity of Care Document ---
Author Author [facility] Organization 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 Type Provider Facility Loc./Unit Complaint [id number] 10/10/2015 15:15:00 2015 15:15:00 CAN Outpatient Alyssia DOWNING, [facility] W.RODGER [id number] 10/05/2015 12:15:00 2015 16:35:00 DIS Outpatient Alyssia DOWNING, [facility] W.JOHANNE [id number] 09/21/2014 05:06:00 2014 14:16:00 DIS Inpatient Juaquin DOWNING, [facility] W.9TN [id number] 09/14/2014 10:34:00 2014 10:34:00 DIS Outpatient Juaquin DOWNING, [facility] W.POA [id number] 09/11/2015 10:30:00 PEN Outpatient Alyssia DOWNING, [facility] W.END [id number] 08/31/2015 05:31:00 Document Registration
--- OUTSIDE RECORDS SUMMARY | 2016-07-11 15:22 | XMS REPORT | Continuity of Care Document ---
Author Author [facility] Organization [facility] Address Unknown Phone Unavailable Support Name Relationship Address Phone TERRY MALHOTRA MD Caregiver [address] [place] [address] Ext [address]15 MYLENE GARCIA MD Caregiver [address] [place] [address] [place], [place] [phone] TAMI LIU DPOA Next Of Kin [address] [place], [place] [id number] Insurance Providers Payer Name Policy Number Subscriber Name Relationship Medicare [id number] Andie Liu 19 Self [facility] Other [id number] Andie Liu 18 Self [facility] [id number] Andie Liu 19 Self Advance Directives Directive Response Recorded Date/Time Ordered Resuscitation Status Full Code 04/19/14 7:30am Resuscitation Documents on File No 04/19/14 9:20am Chief Complaint and Reason for Visit Chief Complaint General Reason for Visit [id number] Gastroenteritis Hypokalemia Problems Medical Problems Problem Onset [...] Date 02/04/14 1:09pm Disposition 02 TO OBS [facility] Condition at Discharge Stable Instructions/Education Provided DI [...] F (96.8 - 99.1) Temperature (Calculated Celsius) 35.77068 degrees C (36.0 - 37.3) Temperature Source [...] March 20, 2009 3:14pm Complete - FAX [phone] Eosinophils # (Auto) February 04, 2014 6:18am [...] 08, 2013 7:36pm LAB TEST FORM REQUEST [id number] - Lactate Dehydrogenase March 20, 2009 3:15pm [...] 04, 2014 6:18am 10.2 % H 0-9.0 BH-Izw-Y-Type Natriuretic Peptide December 02, 2013 3:55pm 1720 [...] 20, 2009 2:45pm Not done - PLEASE TOURIST CABIN KEEPER Thyroid Stimulating Hormone (TSH) November 23, 2013 [...] Has specimen been collected/obtained? Y Urine Specific [place] February 02, 2014 4:11pm 1.020 - Has [...] 2012 7:06pm Name: ANDIE LIU Unit #: [id number] : 1935 Sex: F Loc / Svc: SRG DOS: 04/19/14 Signed Report #: [id number] DIAGNOSTIC IMAGING REPORT TYPE OF EXAM: CT [...] mild central canal narrowing. Severe right and bfek-wx-mbczevlx left neural foraminal stenosis L2-L3: Posterior decompression. [...] 02/08/14 Encounters Encounter Location Date/Time Departed Clinic [facility] 04/19/14 8:56am Registered Clinic [facility] 02/08/14 8:34am Discharged Inpatient [facility] 02/03/14 6:28pm
--- OUTSIDE RECORDS SUMMARY | 2016-07-11 15:22 | XMS REPORT | Continuity of Care Document ---
Author Author [facility] Organization [facility] Address Unknown Phone Unavailable Support Name Relationship Address Phone TAMI LIU Next Of Kin [address] [place] [address] Unavailable Insurance Providers Payer Name Policy Number Subscriber Name Relationship [facility] [id number] Andie Liu Self Medicare [id number] Andie Liu Self [facility] Other [id number] Andie Liu Self Problems No Known Problems [...] Congestive Heart Failure N HAS BEEN DEBATED, "ASSOCIATE PROFESSOR OF LITERATURE SAYS NO" 7:00pm Hx Heart Attack N [...] Summary. Procedures Procedure Code Date PARTICAL MASTECTOMY 81866 08/31/08 BIOPSY/REMOVAL LYMPH NODES 59067 08/31/08 RA TRACER ID OF SENTINL NODE 61982 08/31/08 PACKED CELL TRANSFUSION 99.04 04/24/09 INCISION OF NOSE 21.1 10/14/11 REPAIR OF NASAL SEPTUM 22325 02/06/12 THER FX NASAL INF TURBINATE 75660 02/06/12 [id number] CANCER SCREENING; COLONOSCOPY ON INDIVIDUAL G0121 06/04/12 MUSCULOSKELETAL SURGERY 44806 07/11/13 Blood Culture 10/13/11 Eye/Ear/Nose/Throat Culture 10/13/11 Encounters Encounter Location Date/Time Departed Emergency Room [facility] 11/08/12 6:53pm Discharged Inpatient [facility] 10/13/11 4:58pm
--- OUTSIDE RECORDS SUMMARY | 2016-07-11 15:25 | XMS REPORT | Continuity of Care Document ---
Author Author [facility] Organization [facility] Address Unknown Phone Unavailable Support Name Relationship Address Phone TAMI LIU Next Of Kin [address] [place] [address] Unavailable Insurance Providers Payer Name Policy Number Subscriber Name Relationship [facility] [id number] nAdie Liu Self Medicare [id number] Andie Liu Self [facility] Other [id number] Andie Liu Self Problems No Known Problems [...] Congestive Heart Failure N HAS BEEN DEBATED, "OCCUPATIONAL THERAPY DIRECTOR SAYS NO" 4:13pm Hx Heart Attack N [...] 2:20pm 45 MEQ/L N 30-90 Urine Specific [place] October 13, 2011 5:20pm 1.010 L - [...] 30, 2012 8:15am 0.2 % N 0.0-0.5 XN-Gfg-H-Type Natriuretic Peptide October 13, 2011 5:25pm 1240 PG/ML H 0-175 Urine Microscopic Not Indicated October 13, 2011 5:20pm Not indicated - Procedures Procedure Code Date PARTICAL MASTECTOMY 73918 08/31/08 BIOPSY/REMOVAL LYMPH NODES 26439 08/31/08 RA TRACER ID OF SENTINL NODE 75091 08/31/08 PACKED CELL TRANSFUSION 99.04 04/24/09 INCISION OF NOSE 21.1 10/14/11 REPAIR OF NASAL SEPTUM 09570 02/06/12 THER FX NASAL INF TURBINATE 55687 02/06/12 [id number] CANCER SCREENING; COLONOSCOPY ON INDIVIDUAL G0121 06/04/12 MUSCULOSKELETAL SURGERY 77187 09/30/12 Blood Culture 10/13/11 Eye/Ear/Nose/Throat Culture 10/13/11 Encounters Encounter Location Date/Time Discharged Inpatient [facility] 10/13/11 4:58pm
--- OUTSIDE RECORDS SUMMARY | 2016-07-11 15:25 | XMS REPORT | Continuity of Care Document ---
Author Author [facility] Organization [facility] Address Unknown Phone Unavailable Support Name Relationship Address Phone SHAMA SULLIVAN MD Caregiver [address] [place] [phone] MYLENE GARCIA MD Caregiver [address] [place] [address] [phone] TAMI LIU Next Of Kin [address] [place] [address] Insurance Providers Payer Name Policy Number Subscriber Name Relationship Medicare [id number] Andie Liu 19 Self [facility] Other [id number] Andie Liu 18 Self [facility] [id number] Andie Liu 18 Self Advance Directives Directive [...] of your legs. 3.During office hours, call [phone] 4. After hours, please call [facility] at [phone], and have the dividing machine operator page your Surgeon IN THE [...] F (96.8 - 99.1) Temperature (Calculated Celsius) 36.20648 degrees C (36.0 - 37.3) Temperature Source [...] March 20, 2009 3:14pm Complete - FAX [phone] Eosinophils # (Auto) November 24, 2013 4:55am [...] 10, 2013 7:24pm LAB TEST FORM REQUEST [id number] - Lactate Dehydrogenase March 20, 2009 3:15pm [...] 24, 2013 4:55am 13.2 % H 0-9.0 ET-Odw-J-Type Natriuretic Peptide November 23, 2013 12:44pm 585 [...] 20, 2009 2:45pm Not done - PLEASE METHODS AND PROCEDURES ANALYST Thyroid Stimulating Hormone (TSH) November 23, 2013 [...] Has specimen been collected/obtained? Y Urine Specific [place] November 23, 2013 2:15pm >=1.030 H - [...] 2012 7:06pm Name: ANDIE LIU Unit #: [id number] : 1935 Sex: F Loc / Svc: MED DOS: 11/23/13 Signed Report #: [id number] DIAGNOSTIC IMAGING REPORT TYPE OF EXAM: CHEST, [...] procedures. Encounters Encounter Location Date/Time Discharged Inpatient [facility] 11/23/13 4:12pm Registered Clinic [facility] 10/24/13 8:06am Recent Diagnosis Acute kidney injury
--- OUTSIDE RECORDS SUMMARY | 2016-07-11 15:26 | XMS REPORT | Continuity of Care Document ---
Author Author [facility] Organization [facility] Address Unknown Phone Unavailable Support Name Relationship Address Phone MYLENE GARCIA MD Caregiver [address] [place] [phone] LAWRENCE ALMONTE MD Caregiver [address] [place] [address] TAMI LIU DPOA Next Of Kin [address] [place] [address] Insurance Providers Payer Name Policy Number Subscriber Name Relationship Medicare [id number] Andie Liu 19 Self [facility] Other [id number] Andie Liu Self [facility] [id number] Andie Liu Self Advance Directives Directive Response [...] of your legs. 3.During office hours, call [phone] 4. After hours, please call [facility] at [phone], and have the machine operator hay stacker page your Surgeon IN THE EVENT OF [...] F (96.8 - 99.1) Temperature (Calculated Celsius) 36.29284 degrees C (36.0 - 37.3) Temperature Source [...] March 20, 2009 3:14pm Complete - FAX [phone] Eosinophils # (Auto) February 04, 2014 6:18am [...] 08, 2013 7:36pm LAB TEST FORM REQUEST [id number] - Lactate Dehydrogenase March 20, 2009 3:15pm [...] 04, 2014 6:18am 10.2 % H 0-9.0 WI-Asi-W-Type Natriuretic Peptide December 02, 2013 3:55pm 1720 [...] 20, 2009 2:45pm Not done - PLEASE MANAGER CHEMISTRY Thyroid Stimulating Hormone (TSH) November 23, 2013 [...] Has specimen been collected/obtained? Y Urine Specific [place] February 02, 2014 4:11pm 1.020 - Has [...] 2012 7:06pm Name: ANDIE LIU Unit #: [id number] : 1935 Sex: F Loc / Svc: ED DOS: 02/02/14 Signed Report #: [id number] DIAGNOSTIC IMAGING REPORT TYPE OF EXAM: CT [...] procedures. Encounters Encounter Location Date/Time Discharged Inpatient [facility] 02/03/14 6:28pm Registered Clinic [facility] 12/08/13 12:17pm Registered [facility] 12/02/13 4:56pm Discharged Inpatient [facility] 11/23/13 4:12pm Recent Diagnosis Gastroenteritis
--- NOTE | 2016-07-11 15:27 | NUR ---
ADMISSION TO MEDICAL UNIT VSS. RA. REPORTING PAIN 8/10 IN HIPS/LEGS. CHRONIC BACK PAIN /10. A&O X3. PERIPHERAL IV IN PLACE FROM EMS.
[2016-07-11 15:52] LABS: BASOPHILS % (AUTO) 0.2 % (0-2); EOSINOPHILS % (AUTO) 0.7 % (0-4); HCT - HEMATOCRIT 27.6 % (36-46); HGB - HEMOGLOBIN 7.8 GM/DL (12-16); IMMATURE GRANULOCYTE # (AUTO) 0.04 T/MM3 (0.00-0.03); IMMATURE GRANULOCYTE % (AUTO) 0.9 % (0.0-0.5); LYMPHOCYTES # (AUTO) 1.2 T/MM3 (1-4.8); LYMPHOCYTES % (AUTO) 26.9 % (23-45); MEAN CORPUSCULAR HGB 27.7 UUG (26-34); MEAN CORPUSCULAR HGB CONC(MCHC 28.3 GM/DL (31-37); MEAN CORPUSCULAR VOLUME 97.9 UM3 (80-100); MEAN PLATELET VOLUME 11.8 UM3 (9.4-12.4); MONOCYTES # (AUTO) 0.4 T/MM3 (0-0.8); MONOCYTES % (AUTO) 9.7 % (0-9.0); NEUTROPHILS #(AUTO)-ABSOLUTE 2.7 T/MM3 (1.8-7.7); NEUTROPHILS % (AUTO) 61.6 % (33-66); RED BLOOD COUNT 2.82 M/MM3 (4.00-5.20); WBC - WHITE BLOOD COUNT 4.4 T/MM3 (4.5-11.0)
--- NOTE | 2016-07-11 15:53 | DI ---
INDICATION: ITS.REASON: chest pain PROCEDURE: CHEST 2-VIEWS UPRIGHT (PA \T\ LAT) Encounter: Initial COMPARISON: June 30, 2016 FINDINGS: Prior right PICC line is been removed. Left dual lead cardiac pacemaker again seen. Surgical clips projecting over the left breast area. New small bilateral pleural effusions seen on the lateral view with some mildly increased interstitial markings. No pneumothorax. The heart size and mediastinal contours are stable. IMPRESSION: New small pleural effusions and findings of mild pulmonary edema. .
[2016-07-11 16:01] LABS: ALBUMIN 3.1 G/DL (3.5-5.0); ALBUMIN/GLOBULIN RATIO 1.1 RATIO (1.1-2.2); ALKALINE PHOSPHATASE 57 U/L (38-126); ALT (SGPT) 27 U/L (9-52); ANION GAP 11 MEQ/L (5-15); AST (SGOT) 51 U/L (14-36); BUN/CREATININE RATIO 18 RATIO (6-26); CALCIUM 9.3 MG/DL (8.4-10.2); CHLORIDE 103 MEQ/L (98-107); CO2 - CARBON DIOXIDE 31 MEQ/L (22-30); CREATININE 0.9 MG/DL (0.7-1.2); GLOMERULAR FILTRATION RATE 60; GLUCOSE 147 MG/DL (65-110); POTASSIUM 4.3 MEQ/L (3.6-5); SODIUM 145 MEQ/L (134-144); TOTAL PROTEIN 5.8 G/DL (6.3-8.2)
--- NOTE | 2016-07-11 16:04 | ERPDOC ---
Departure Disposition Decision Date: Jul 11, 2016 Disposition Decision Time: 16:27 (JAIMIE PAZ APRN) Disposition: 02 TO OBS [facility] Impression Impression (JACKSONJAIMIE Funez APRN) Impression: Primary Impression: Edema Edema type: generalized Qualified Codes: R60.1 - Generalized edema Additional Impression: Anemia Anemia type: unspecified type Qualified Codes: D64.9 - Anemia, unspecified Severity: Moderate (JAIMIE PAZ APRN) Condition: Stable Seen By: Mid-level only (JAIMIE PAZ APRN) Referrals: RONALD ESPINO DO (Family) Problems/Meds/Labs Reviewed?: Yes Medications reviewed and manag: Yes (JAIMIE PAZ APRN) Follow up care ordered?: Yes Mental Status: Alert, Oriented (JAIMIE PAZ APRN) HPI - Dyspnea General Chief Complaint: General Stated Complaint: EDEMA Time Seen by Provider: 15:08 Source: patient Exam Limitations: no limitations (JAIMIE PAZ APRN) Time Seen by Provider: 15:08 (JENNIFER FRENCH DO) HPI - Dyspnea Initial Comments She presents to Er today for evaluation of edema. She has felt like she has increased edema from the upper abdomen down. She had been admitted to [facility] for anemia and also a DVT in her arm. She was transfused and her hgb was up to 8.4 a few days ago. She states that they had not found the source for her bleeding during her admission. She has been wrapping her BLE and that has helped some. Has been having chest pressure and slight dyspnea. Denies any fever or chills. She does have a an/ssn [address] Pimentel in [place] but has not been evaluated by him and he does not know about her recent admissions. Occurred At: home Onset/Timing: Gradual Duration: 1 week Severity: moderate Activities at Onset: none Associated Symptoms: chest pain, malaise, shortness of breath, DENIES: cough, diaphoresis, fever/chills, headaches, loss of appetite, nausea/vomiting, rash, seizure, syncope, weakness Aspirin Treatment Today: unknown Hx of Similar Symptoms: No (JAIMIE PAZ APRN) Allergies: Coded Allergies: phenylbutazone (Verified Allergy, Mild, HIVES (BUTAZOLIDIN - MANU DISC), ) lansoprazole (Verified Adverse Reaction, Mild, DIARRHEA, 06/02/16) Past History Patient Surgical History Tonsillectomy, age 6. 2013 colonoscopy normal, NO diverticula - [place] 2015 colonoscopy normal in [facility] Colonoscopy, 1997, 2002, 2012. EGD and colonoscopy, 2001. Open cholecystectomy, 2001 Bilateral cataract extraction and lens implantation, 2000. Surgery for ankle spurs twice TAHBSO with incidental appendectomy, 1983 Right Achilles tendon repair. Carpal tunnel release. Left knee replacement, 2004. Hemorrhoidectomy, 2005. Right corneal surgery. Posterior decompression and fusion at L4-L5, 2006. 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 L3-L4 decompression and extension of fusion to L2-L3, 2009 Septoplasty, 2011. Ileal band release of left hip, 2012. Permanent pacemaker placement, 2013. Bone marrow biopsy, 2013 L1-L2 Radical discectomy, L1-L2. Anterior lumbar interbody fusion, 2014 Back surgery, summer 2014 (NOALFRED,JAIMIE N HOME HEALTH CARE SOCIAL WORKER) Past Medical History Metabolic: hypercholesterolemia, hypertension, hypothyroidism (NOLD,JAIMIE N HOME HEALTH CARE SOCIAL WORKER) Surgical History General: back, other Joint: knee (NOLD,JAIMIE N HOME HEALTH CARE SOCIAL WORKER) Vaccines Hx Influenza Vaccination: Yes (jan 2015) Hx Pneumococcal Vaccination: Yes (02/2015) (NOLD,JAIMIE N HOME HEALTH CARE SOCIAL WORKER) Social History Does patient use chewing tobac: No Second Hand Exposure: No Substance Use Type: does not use Substance last used: prior to arrival Housing: assisted living facility (NOALFRED,JAIMIE N HOME HEALTH CARE SOCIAL WORKER) Review of Systems Constitutional Constitutional: dizziness, fatigue, weakness, DENIES: appetite decrease, chills , fever (NOLD,JAIMIE N HOME HEALTH CARE SOCIAL WORKER) Cardiovascular Cardiac: chest pain, dyspnea on exertion, DENIES: orthopnea Rhythm/Rate: DENIES: irregular beat, palpitations Vascular: pedal edema, DENIES: unilateral swelling (NOLD,JAIMIE N HOME HEALTH CARE SOCIAL WORKER) Pulmonary Respiratory: DENIES: cough, dyspnea, sputum, tachypnea (NOLD,JAIMIE N HOME HEALTH CARE SOCIAL WORKER) GI Upper Abdomen: DENIES: nausea, pain, vomiting Lower Abdomen: DENIES: constipation, diarrhea, pain (NOLD,JAIMIE N HOME HEALTH CARE SOCIAL WORKER) Integumentary Skin: DENIES: rash (EILEEN PAZA N HOME HEALTH CARE SOCIAL WORKER) Neurological General: DENIES: headache, numbness, tingling, weakness (HALLESA N HOME HEALTH CARE SOCIAL WORKER) Physical Exam General General Nourishment: well nourished, well developed, appears stated age, no acute distress, adult General Body Habitus: well groomed (HALLESA N HOME HEALTH CARE SOCIAL WORKER) Vitals and Pain First Documented Vital Signs Date Time Temp Pulse Resp B/P Pulse Ox O2 Delivery O2 Flow Rate FiO2 07/11/16 14:40 98.7 63 20 139/65 96 Room Air (FRENCHJENNIFER DO) Vitals and Pain Weight: Kilograms: 95.500 Height (feet): 5 Height (inches): 3.00 Triage Pain Scale: (JAIMIE PAZ APRN) RN VS reviewed by Provider: Yes (JAIMIE PAZ APRN) Normal Exams: Neck: Full range of motion, without adenopathy, JVD, bruits or thyromegaly Chest/Resp: Clear all echols, with good airflow, and symmetry bilaterally CV: Regular rate and rhythm, without murmur or gallop, Pulses 2+ all extremities, capillary refill, <2 seconds all ext. Abdomen: Bowel sounds positive, non-distended, no hepatosplenomegaly, masses or bruits noted Lymphatic: No lymphadenopathy, or lymphedema noted Integumentary: No rashes, hives, or bruising noted Neurologic: Patient is alert, and oriented Psychiatric: Patient exhibits, appropriate attention, emotion and affect (HALLESA N HOME HEALTH CARE SOCIAL WORKER) Cardiovascular (brief) Cardiac: FOUND: peripheral edema (2+ pitting up to her thighs) Capillary Refill: <2 sec Pulses: all distal extremities, equal, strong (HALLESA N HOME HEALTH CARE SOCIAL WORKER) Abdomen Inspection: NOT FOUND: distention Palpation: FOUND: soft, tender (TTP in the left lower abdomen), voluntary guarding, NOT FOUND: involuntary guarding (JACKSON,JAIMIE N HOME HEALTH CARE SOCIAL WORKER) Differential Diagnoses Considering: Acute NM, Acute Respiratory Failure, Angioedema, CHF, Pneumonia, Other (anemia) (JACKSON,JAIMIE N HOME HEALTH CARE SOCIAL WORKER) Progress Results/Orders Orders Procedure Category Date Status Time Probnp LAB 07/11/16 Complete 15:14 Iv Lock (Ed Only) EDM 4/21/17 Transmitted 15:14 Cbc W/Auto LAB 07/11/16 Complete Diff-Reflex Manual Cmp - Comprehensive LAB 07/11/16 Complete Metabolic Troponin I W LAB 07/11/16 Complete Hemolysis Index EKG EKG 07/11/16 Taken Chest, Pa & Lateral RAD 07/11/[address] In Facility As: ADMIT 07/11/16 Transmitted (JENNIFER FRENCH DO) Lab Results Laboratory Tests Test 07/11/16 15:45 07/11/16 15:46 White Blood Count 4.4T/MM3 Red Blood Count 2.82M/MM3 Hemoglobin 7.8GM/DL Hematocrit 27.6% Mean Corpuscular Volume 97.9UM3 Mean Corpuscular Hemoglobin 27.7UUG Mean Corpuscular Hemoglobin Concent 28.3GM/DL RDW Standard Deviation 61.6FL Platelet Count 86T/MM3 Mean Platelet Volume 11.8UM3 Immature Granulocyte % (Auto) 0.9% Neutrophils (%) (Auto) 61.6% Lymphocytes (%) (Auto) 26.9% Monocytes (%) (Auto) 9.7% Eosinophils (%) (Auto) 0.7% Basophils (%) (Auto) 0.2% Absolute Immature Granulocyte (auto 0.04T/MM3 Absolute Neutrophils (auto) 2.7T/MM3 Absolute Lymphocytes (auto) 1.2T/MM3 Absolute Monocytes (auto) 0.4T/MM3 Absolute Eosinophils (auto) 0.0T/MM3 Absolute Basophils (auto) 0.0T/MM3 Turbidity < 20 Sodium Level 145MEQ/L Potassium Level 4.3MEQ/L Chloride Level 103MEQ/L Carbon Dioxide Level 31MEQ/L Anion Gap 11MEQ/L Blood Urea Nitrogen 16.0MG/DL Creatinine 0.9MG/DL Glomerular Filtration Rate Calc 60 BUN/Creatinine Ratio 18RATIO Glucose Level 147MG/DL Calculated Osmolality 283MOSM/KG Calcium Level 9.3MG/DL Total Bilirubin 0.80MG/DL Icterus Index < 2 Aspartate Amino Transf (AST/SGOT) 51U/L Alanine Aminotransferase (ALT/SGPT) 27U/L Alkaline Phosphatase 57U/L Troponin I 0.015ng/ml Total Protein 5.8G/DL Albumin 3.1G/DL Globulin 2.7G/DL Albumin/Globulin Ratio 1.1RATIO Chemistry Specimen Hemolysis < 15 MF-Qey-P-Type Natriuretic Peptide 1720PG/ML (JENNIFER FRENCH DO) Progress Progress WBC is 4.4, hgb is down to 7.8. Was 8.4 on 07/09/16. Troponin is negative, CMP is unremarkable. BNP is 1720, chest xray does show mild pulmonary edema. Did talk with Dr Ortega regarding HPI and labs. Will admit at this time OBS for diuresis and to trend out hgb since it is trending down again. (JAIMIE PAZ APRN) Xray Xray : Reason for Exam: chest pain Xray: CXR PA/Lat Interpretation: Abnormal (mild pulmonary edema) (JAIMIE PAZ APRN) JAIMIE PAZ APRN Jul 11, 2016 16:04 JENNIFER FRENCH DO Jul 11, 2016 18:31
--- OUTSIDE RECORDS SUMMARY | 2016-07-11 17:22 | XMS REPORT | Continuity of Care Document ---
Author Author [facility] Organization [facility] Address Unknown Phone Unavailable Support Name Relationship Address Phone TAMI LIU Next Of Kin [address] [place] [address] Unavailable Insurance Providers Payer Name Policy Number Subscriber Name Relationship [facility] [id number] Andie Liu Self Medicare [id number] Andie Liu Self [facility] Other [id number] Andie Liu Self Problems No Known Problems [...] Congestive Heart Failure N HAS BEEN DEBATED, "MILITARY PERSONNEL SPECIALIST SAYS NO" 7:00pm Hx Heart Attack N [...] Summary. Procedures Procedure Code Date PARTICAL MASTECTOMY 54018 08/31/08 BIOPSY/REMOVAL LYMPH NODES 57711 08/31/08 RA TRACER ID OF SENTINL NODE 84926 08/31/08 PACKED CELL TRANSFUSION 99.04 04/24/09 INCISION OF NOSE 21.1 10/14/11 REPAIR OF NASAL SEPTUM 67160 02/06/12 THER FX NASAL INF TURBINATE 97684 02/06/12 [id number] CANCER SCREENING; COLONOSCOPY ON INDIVIDUAL G0121 06/04/12 MUSCULOSKELETAL SURGERY 35019 07/11/13 Blood Culture 10/13/11 Eye/Ear/Nose/Throat Culture 10/13/11 Encounters Encounter Location Date/Time Departed Emergency Room [facility] 11/08/12 6:53pm Discharged Inpatient [facility] 10/13/11 4:58pm
--- OUTSIDE RECORDS SUMMARY | 2016-07-11 17:22 | XMS REPORT | Continuity of Care Document ---
Author Author [facility] Organization [facility] Address Unknown Phone Unavailable Allergies Active Description Code Type Severity Reaction Onset Reported/Identified Relationship to Patient Clinical Status Yes Prevacid 61109 Unknown N/A 08/18/2014 Yes lansoprazole lansoprazole Drug [...] Deyvi Reza MD 414.01 CORONARY ATHEROSCLEROSIS OF [place] CORONARY VESSEL 09/21/2014 Deyvi Reza MD 416.8 [...] CAROLIN SMITH 04/07/2016 CAROLIN SMITH Z79.899 OTHER NUT GRINDER (CURRENT) DRUG THERAPY CAROLIN SMITH Procedures Code [...] Status Pt. Type Provider Facility Loc./Unit Complaint [id number] 10/10/2015 15:15:00 2015 15:15:00 CAN Outpatient Alyssia DOWNING, [facility] W.RODGER [id number] 10/05/2015 12:15:00 2015 16:35:00 DIS Outpatient Alyssia DOWNING, [facility] W.JOHANNE [id number] 09/21/2014 05:06:00 2014 14:16:00 DIS Inpatient Juaquin DOWNING, [facility] W.9TN [id number] 09/14/2014 10:34:00 2014 10:34:00 DIS Outpatient Juaquin DOWNING, [facility] W.POA [id number] 09/11/2015 10:30:00 PEN Outpatient Alyssia DOWNING, [facility] W.END [id number] 08/31/2015 05:31:00 Document Registration
--- OUTSIDE RECORDS SUMMARY | 2016-07-11 17:23 | XMS REPORT | Continuity of Care Document ---
Author Author [facility] Organization [facility] Address Unknown Phone Unavailable Support Name Relationship Address Phone TERRY MALHOTRA MD Caregiver [address] [place] [address] Ext [phone] MYLENE GARCIA MD Caregiver [address] [place] [address] [place], [place] [phone] TAMI LIU DPOA Next Of Kin [address] [place], [place] [id number] Insurance Providers Payer Name Policy Number Subscriber Name Relationship Medicare [id number] Andie Liu 19 Self [facility] Other [id number] Andie Liu 18 Self [facility] [id number] Andie Liu 18 Self Advance Directives Directive Response Recorded Date/Time Ordered Resuscitation Status Full Code 04/19/14 7:30am Resuscitation Documents on File No 04/19/14 9:20am Chief Complaint and Reason for Visit Chief Complaint General Reason for Visit [id number] Gastroenteritis Hypokalemia Problems Medical Problems Problem Onset [...] Date 02/04/14 1:09pm Disposition 02 TO OBS [facility] Condition at Discharge Stable Instructions/Education Provided DI [...] F (96.8 - 99.1) Temperature (Calculated Celsius) 35.45655 degrees C (36.0 - 37.3) Temperature Source [...] March 20, 2009 3:14pm Complete - FAX [phone] Eosinophils # (Auto) February 04, 2014 6:18am [...] 08, 2013 7:36pm LAB TEST FORM REQUEST [id number] - Lactate Dehydrogenase March 20, 2009 3:15pm [...] 04, 2014 6:18am 10.2 % H 0-9.0 UY-Sff-Y-Type Natriuretic Peptide December 02, 2013 3:55pm 1720 [...] 20, 2009 2:45pm Not done - 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 Y Urine Specific [place] February 02, 2014 4:11pm 1.020 - Has [...] 2012 7:06pm Name: ANDIE LIU Unit #: [id number] : 1935 Sex: F Loc / Svc: SRG DOS: 04/19/14 Signed Report #: [id number] DIAGNOSTIC IMAGING REPORT TYPE OF EXAM: CT [...] mild central canal narrowing. Severe right and tzka-xc-lrnvjnos left neural foraminal stenosis L2-L3: Posterior decompression. [...] 02/08/14 Encounters Encounter Location Date/Time Departed Clinic [facility] 04/19/14 8:56am Registered Clinic [facility] 02/08/14 8:34am Discharged Inpatient [facility] 02/03/14 6:28pm
--- OUTSIDE RECORDS SUMMARY | 2016-07-11 17:25 | XMS REPORT | Continuity of Care Document ---
Author Author [facility] Organization [facility] Address Unknown Phone Unavailable Support Name Relationship Address Phone SHAMA SULLIVAN MD Caregiver [address] [place] [phone] MYLENE GARCIA MD Caregiver [address] [place] [address] [phone] TAMI LIU Next Of Kin [address] [place] [address] Insurance Providers Payer Name Policy Number Subscriber Name Relationship Medicare [id number] Adnie Liu 18 Self [facility] Other [id number] Andie Liu 18 Self [facility] [id number] Andie Liu 18 Self Advance Directives Directive [...] up lab - come to lab at [facility] on Monday December 02, 2013 to [...] of your legs. 3.During office hours, call [phone] 4. 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 Y Urine Specific [place] November 23, 2013 2:15pm >=1.030 H - [...] 2012 7:06pm Name: ANDIE LIU Unit #: [id number] : 1935 Sex: F Loc / Svc: MED DOS: 11/23/13 Signed Report #: [id number] DIAGNOSTIC IMAGING REPORT TYPE OF EXAM: CHEST, [...] procedures. Encounters Encounter Location Date/Time Discharged Inpatient [facility] 11/23/13 4:12pm Registered Clinic [facility] 10/24/13 8:06am Recent Diagnosis Acute kidney injury
--- OUTSIDE RECORDS SUMMARY | 2016-07-11 17:26 | XMS REPORT | Continuity of Care Document ---
Author Author [facility] Organization [facility] Address Unknown Phone Unavailable Support Name Relationship Address Phone TAMI LIU Next Of Kin [address] [place] [address] Unavailable Insurance Providers Payer Name Policy Number Subscriber Name Relationship [facility] [id number] Andie Liu Self Medicare [id number] Andie Liu Self [facility] Other [id number] Andie Liu Self Problems No Known Problems [...] Congestive Heart Failure N HAS BEEN DEBATED, "DAY CARE DIRECTOR SAYS NO" 4:13pm Hx Heart Attack [...] 2:20pm 45 MEQ/L N 30-90 Urine Specific [place] October 13, 2011 5:20pm 1.010 L - [...] 30, 2012 8:15am 0.2 % N 0.0-0.5 QC-Dnm-F-Type Natriuretic Peptide October 13, 2011 5:25pm 1240 PG/ML H 0-175 Urine Microscopic Not Indicated October 13, 2011 5:20pm Not indicated - Procedures Procedure Code Date PARTICAL MASTECTOMY 84735 08/31/08 BIOPSY/REMOVAL LYMPH NODES 82855 08/31/08 RA TRACER ID OF SENTINL NODE 14671 08/31/08 PACKED CELL TRANSFUSION 99.04 04/24/09 INCISION OF NOSE 21.1 10/14/11 REPAIR OF NASAL SEPTUM 45844 02/06/12 THER FX NASAL INF TURBINATE 22632 02/06/12 [id number] CANCER SCREENING; COLONOSCOPY ON INDIVIDUAL G0121 06/04/12 MUSCULOSKELETAL SURGERY 74440 09/30/12 Blood Culture 10/13/11 Eye/Ear/Nose/Throat Culture 10/13/11 Encounters Encounter Location Date/Time Discharged Inpatient [facility] 10/13/11 4:58pm
--- OUTSIDE RECORDS SUMMARY | 2016-07-11 17:27 | XMS REPORT | Continuity of Care Document ---
Author Author [facility] Organization [facility] Address Unknown Phone Unavailable Support Name Relationship Address Phone MYLENE GARCIA MD Caregiver [address] [place] [phone] LAWRENCE ALMONTE MD Caregiver [address] [place] [address] TAMI LIU DPOA Next Of Kin [address] [place] [address] Insurance Providers Payer Name Policy Number Subscriber Name Relationship Medicare [id number] Andie Liu 18 Self [facility] Other [id number] Andie Liu Self [facility] [id number] Andie Liu Self Advance Directives Directive Response [...] of your legs. 3.During office hours, call [phone] 4. After hours, please call [facility] at [phone], and have the planer setup operator page your Surgeon IN THE EVENT [...] F (96.8 - 99.1) Temperature (Calculated Celsius) 36.60494 degrees C (36.0 - 37.3) Temperature Source [...] March 20, 2009 3:14pm Complete - FAX [phone] Eosinophils # (Auto) February 04, 2014 6:18am [...] 08, 2013 7:36pm LAB TEST FORM REQUEST [id number] - Lactate Dehydrogenase March 20, 2009 3:15pm [...] 04, 2014 6:18am 10.2 % H 0-9.0 IB-Cdg-B-Type Natriuretic Peptide December 02, 2013 3:55pm 1720 [...] 20, 2009 2:45pm Not done - PLEASE DIRECTOR CARD Thyroid Stimulating Hormone (TSH) November 23, 2013 [...] Has specimen been collected/obtained? Y Urine Specific [place] February 02, 2014 4:11pm 1.020 - Has [...] 2012 7:06pm Name: ANDIE LIU Unit #: [id number] : 1935 Sex: F Loc / Svc: ED DOS: 02/02/14 Signed Report #: [id number] DIAGNOSTIC IMAGING REPORT TYPE OF EXAM: CT [...] procedures. Encounters Encounter Location Date/Time Discharged Inpatient [facility] 02/03/14 6:28pm Registered Clinic [facility] 12/08/13 12:17pm Registered [facility] 12/02/13 4:56pm Discharged Inpatient [facility] 11/23/13 4:12pm Recent Diagnosis Gastroenteritis
[2016-07-11 17:34] VITALS: BP 136/68; PULSE 70; RESP 18; TEMP 96.6; O2SAT 96
[2016-07-11 17:49] VITALS: Ht 160 cm; Wt 90.7 kg
--- NOTE | 2016-07-11 18:10 | HPPDOC ---
DARRICK GLEASON V [employer] 07/11/16 1741: HPI - Adult Date DATE: 07/11/16 TIME: 17:24 General Chief Complaint: pleural effusion, anasarca History of Present Illness Bhavna is well know to the hospitalist services as she was recently admitted on 06/30 for GI bleeding, anemia, Sepsis with UTI. She underwent a a colonoscopy by Dr Winters on 07/02. Colon polypectomy was performed and pathology reveled Grade 1 intramucosal adenocarcinoma. She was discharged on Thursday07/07/16 to [facility] for skilled rehabilitation. She is instructed to remain off anticoagulation until follow-up with primary care provider, Sadie Taveras. Today she presents to the emergency room for reevaluation of increased edema. Further evaluation including laboratory studies and x-rays were obtained. Hemoglobin was found to be down to 7.8, hematocrit 27.6, white count 4.4, RBCs 2.82. Platelet count is 86. Sodium is elevated 145, potassium 4.3, BUN 16, creatinine 0.9, glucose 147. Troponin 0.015, proBNP 1720. She is afebrile at 96.6, pulse 70, respiration rate 18, blood pressure 136/68. She is saturating on room air at 96%. Chest x-ray did reveal new small pleural effusions with findings of mild pulmonary edema. She reports that over the past 2-3 days her swelling has significant worsening not only in her bilateral lower ext, but up into her abdomen. She reports feeling more short of breath and having some chest pain with shortness of breath that is intermittent, and worse with exertion. Denies fever or chills. No GI complaints. Given these acute changes and significant anasarca, new pleural effusions and anemia. The hospitalist services were contacted and accepted patient for outpatient admission for further evaluation and treatment. Past Medical History Past Medical History Paroxysmal atrial fibrillation Congestive heart failure Chronic kidney disease. Hypertension History of breast cancer-2009 Chronic anemia Chronic back pain Hypothyroidism Chronic anticoagulation The patient also has history of unknown type of liver disease for which she sees Dr. Cade. She is on Xifaxan she is on prednisone chronically for knee pains and back pain. ECHO- 2016 EF- 55%. Aortic valve sclerosis with mild aortic regurgitation. Moderate tricuspid insufficiency Surgical History Patient's Surgical History: Tonsillectomy, age 6. Colonoscopy 07/02/16- adenocarcinoma- [facility] 2012 colonoscopy normal, NO diverticula - [facility] 2015 colonoscopy normal in [facility] Colonoscopy, 1997, 2002, 2012. EGD and colonoscopy, 2001. Open cholecystectomy, 2001 Bilateral cataract extraction and lens implantation, 2000. Surgery for ankle spurs twice [facility] with incidental appendectomy, 1983 Right Achilles tendon repair. Carpal tunnel release. Left knee replacement, 2004. Hemorrhoidectomy, 2005. Right corneal surgery. Posterior decompression and fusion at L4-L5, 2006. 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 L3-L4 decompression and extension of fusion to L2-L3, 2009 Septoplasty, 2011. Ileal band release of left hip, 2012. Permanent pacemaker placement, 2013. Bone marrow biopsy, 2013 L1-L2 Radical discectomy, L1-L2. Anterior lumbar interbody fusion, 2014 Back surgery, summer 2014 Current Medications Home Meds Active Scripts Hydrocodone/Acetaminophen ([place] 10-325 Tablet) 1 Each Tablet, 1 TAB PO Q6H Y for PRN ORDERS, #30 TAB Prov:DARRICK GLEASON APRN 07/07/16 Reported Medications Potassium Chloride (Potassium Chloride) 20 Meq Tablet.er, 20 MEQ PO HS 07/11/16 Potassium Chloride (Potassium Chloride) 20 Meq Tablet.er, 40 MEQ PO WB 07/11/16 Ospemifene (Osphena) 60 Mg Tablet, 60 MG PO DAILY 07/11/16 Omeprazole (Omeprazole) 20 Mg Tablet.dr, 20 MG PO BID 07/11/16 Bumetanide (Bumetanide) 1 Mg Tablet, 1 MG PO BID, 1 Refill 07/11/16 Amiodarone HCl (Amiodarone HCl) 200 Mg Tablet, 200 MG PO DAILY 07/11/16 Melatonin (Melatonin) 3 Mg Tablet, 5-10 MG PO HS Y for SLEEP 06/30/16 Mirabegron (Myrbetriq) 25 Mg Tab.er.24h, 25 MG PO DAILY, TAB 06/30/16 Prednisone (Prednisone) 5 Mg Tablet, 7.5 MG PO WB 06/30/16 Atenolol (Atenolol) 50 Mg Tablet, 50 MG PO DAILY 06/30/16 Acetaminophen (Tylenol) 325 Mg Tablet, 1-2 TAB PO PRN 06/30/16 Donepezil HCl (Donepezil HCl) 5 Mg Tablet, 5 MG PO HS 06/01/16 Rifaximin (Xifaxan) 550 Mg Tablet, 550 MG PO BID, TAB 06/01/16 Polyethylene Glycol 3350 (Miralax) 17 Gm Powd.pack, 1 PACKET PO DAILY Y for CONSTIPATION 06/01/16 Levothyroxine Sodium (Levothyroxine Sodium) 112 Mcg Tablet, 112 MCG PO ACB 07/05/15 Calcium Carbonate/Vitamin D3 (Calcium 600 + Vit D Caplet) 1 Each Tablet, 1 TAB PO DAILY 10/16/14 Pramipexole Di-HCl (Mirapex) 1 Mg Tablet, 1 MG PO DAILY 04/19/14 Divalproex Sodium (Divalproex Sodium) 500 Mg Tablet.dr, 500 MG PO DAILY 11/23/13 Sertraline Hcl (Zoloft) 100 Mg Tablet, 100 MG PO DAILY 09/27/09 Discontinued Reported Medications Apixaban (Eliquis) 5 Mg Tablet, 5 MG PO BID, #180 11/23/13 Allergies: Coded Allergies: phenylbutazone (Verified Allergy, Mild, HIVES (BUTAZOLIDIN - MANU DISC), ) lansoprazole (Verified Adverse Reaction, Mild, DIARRHEA, 06/02/16) Family History Family History: Father age 87, CHF. Mother age 20, pancreatic cancer. 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 Pimentel Review of Systems Constitutional: REPORTS: fatigue, weakness Cardiovascular chest pain, dyspnea on exertion Vascular: pedal edema (3+ bilateral lower extremity) Pulmonary Respiratory: dyspnea Integumentary Skin: see HPI (3+bilteral lower ext edema ) Physical Exam General General Nourishment: well nourished, well developed Vital Signs Vital Signs Date Time Temp Pulse Resp B/P Pulse Ox O2 Delivery O2 Flow Rate FiO2 07/11/16 14:40 98.7 63 20 139/65 96 Room Air Height (Feet): 5 Height (Inches): 3.00 ENMT Brief: FOUND: mucosa moist, normal dentition, NOT FOUND: pharnyx erythema Respiratory Brief: FOUND: clear all echols, equal bilaterally, NOT FOUND: wheezes Cardiovascular (brief) Cardiac Brief: FOUND: pedal edema (3+ bilateral lower extremity edema with anasarca to the abdomen), regular rate, regular rhythm, NOT FOUND: murmur Abdomen (brief) Abdominal Brief: FOUND: BS normo active x4, soft Integumentary (brief) Integumentary Brief: FOUND: dry, pink, warm Comments Left lower extremity with mild erythema and warm to touch Neurologic (brief) Neurological Brief: FOUND: cranial 2-12 intact, motor (equal x 4 ecxt) Neurologic RN Documented GCS Eye Opening: Verbal: Motor: Total: Psychiatric (brief) FOUND: alert, attentive, normal affect, oriented Laboratory Laboratory Tests Test 07/11/16 15:45 07/11/16 15:46 White Blood Count 4.4T/MM3 Red Blood Count 2.82M/MM3 Hemoglobin 7.8GM/DL Hematocrit 27.6% Mean Corpuscular Volume 97.9UM3 Mean Corpuscular Hemoglobin 27.7UUG Mean Corpuscular Hemoglobin Concent 28.3GM/DL RDW Standard Deviation 61.6FL Platelet Count 86T/MM3 Mean Platelet Volume 11.8UM3 Immature Granulocyte % (Auto) 0.9% Neutrophils (%) (Auto) 61.6% Lymphocytes (%) (Auto) 26.9% Monocytes (%) (Auto) 9.7% Eosinophils (%) (Auto) 0.7% Basophils (%) (Auto) 0.2% Absolute Immature Granulocyte (auto 0.04T/MM3 Absolute Neutrophils (auto) 2.7T/MM3 Absolute Lymphocytes (auto) 1.2T/MM3 Absolute Monocytes (auto) 0.4T/MM3 Absolute Eosinophils (auto) 0.0T/MM3 Absolute Basophils (auto) 0.0T/MM3 Turbidity < 20 Sodium Level 145MEQ/L Potassium Level 4.3MEQ/L Chloride Level 103MEQ/L Carbon Dioxide Level 31MEQ/L Anion Gap 11MEQ/L Blood Urea Nitrogen 16.0MG/DL Creatinine 0.9MG/DL Glomerular Filtration Rate Calc 60 BUN/Creatinine Ratio 18RATIO Glucose Level 147MG/DL Calculated Osmolality 283MOSM/KG Calcium Level 9.3MG/DL Total Bilirubin 0.80MG/DL Icterus Index < 2 Aspartate Amino Transf (AST/SGOT) 51U/L Alanine Aminotransferase (ALT/SGPT) 27U/L Alkaline Phosphatase 57U/L Troponin I 0.015ng/ml Total Protein 5.8G/DL Albumin 3.1G/DL Globulin 2.7G/DL Albumin/Globulin Ratio 1.1RATIO Chemistry Specimen Hemolysis < 15 HT-Fil-T-Type Natriuretic Peptide 1720PG/ML Assessment & Plan Problems: (1) Anasarca Status: Acute Assessment & Plan: Present on admission (2) Pleural effusion Status: Acute (3) Edema Status: Acute Qualifiers: Edema type: generalized Qualified Codes: R60.1 - Generalized edema (4) Adenocarcinoma Status: Acute Assessment & Plan: Found on polypectomy-07/02/16 (5) Leg erythema Status: Acute Assessment & Plan: Present on admission, left lower extremity erythema and warmth (6) Right-sided congestive heart failure Status: Chronic (7) HTN (hypertension) Status: Chronic (8) Paroxysmal atrial fibrillation Status: Chronic (9) Anemia of chronic disease Status: Chronic (10) CKD (chronic kidney disease), stage III Status: Chronic (11) Invasive ductal carcinoma of breast, stage 2 Onset Date: ~ 2006 Status: Chronic (12) Thrombocythemia Status: Chronic Assessment & Plan: Platelet count on admission 86 (13) Superficial thrombophlebitis Status: Acute Qualifiers: Superficial thrombophlebitis-Involved body area: upper extremity Laterality : right Qualified Codes: I80.8 - Phlebitis and thrombophlebitis of other sites (14) GERD (gastroesophageal reflux disease) Status: Chronic (15) History of recent hospitalization Status: Chronic Assessment & Plan: Discharged 07/07/16 (16) Hypothyroidism Status: Chronic (17) Osteoarthritis Status: Chronic (18) Depression Status: Chronic Plan/Intensity of Service Admit patient to outpatient observation under care of Dr. Ortega for anasarca , pleural effusion, anemia Monitor on cardiac telemetry. Given episodes of chest pain, we will obtain serial troponin 3. Given anemia will Type and screen patient as she may require blood transfusion. During recent hospitalization she did receive 3 units of packed red blood cells. 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 She is under the care of Dr. Zuniga for chronic anemia as well as history of breast cancer in 2008 Chronic anticoagulation has been on hold since previous admission on 06/30. She had been taking Eliquis for chronic Will place littlejohn cath for strict AMOR. Patient will need to be gently diuresed giving anasarca. Discuss diuresing plan with attending Dr Ortega Place thigh high janna hose to aid in compression and peripheral edema. We'll monitor left lower extremity carefully as it is slightly warm and red. Will obtain a venous duplex of LLE to rule out acute DVT. Will obtain CBC and BMP tomorrow morning to follow blood counts, renal function and electrolytes. Will discuss further plan of care with attending, Dr. Ortega. At time of discharge medical care will return to PCP Dr Taveras DVT Prophylaxis: SCD'S Code Status Full Code Hospital Course Summary Disclaimer The hospital course summary below is not to be considered part of the above Progress Note. Hospital Course Summary Admit patient to outpatient observation under care of Dr. Ortega for anasarca , pleural effusion, anemia Monitor on cardiac telemetry. Given episodes of chest pain, we will obtain serial troponin 3. Given anemia will Type and screen patient as she may require blood transfusion. During recent hospitalization she did receive 3 units of packed red blood cells. 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 She is under the care of Dr. Zuniga for chronic anemia as well as history of breast cancer in 2008 Chronic anticoagulation has been on hold since previous admission on 06/30. She had been taking Eliquis for chronic Will place littlejohn cath for strict AMOR. Patient will need to be gently diuresed giving anasarca. Discuss diuresing plan with attending Dr Ortega Place thigh high janna hose to aid in compression and peripheral edema. We'll monitor left lower extremity carefully as it is slightly warm and red. Will obtain a venous duplex of LLE to rule out acute DVT. Will obtain CBC and BMP tomorrow morning to follow blood counts, renal function and electrolytes. Will discuss further plan of care with attending, Dr. Ortega. At time of discharge medical care will return to PCP KURTIS Mccoy MD 07/11/162032: Past Medical History Current Medications Home Meds Active Scripts Hydrocodone/Acetaminophen ([place] 10-325 Tablet) 1 Each Tablet, 1 TAB PO Q6H Y for PRN ORDERS, #30 TAB Prov:DARRICK GLEASON V [employer] 07/07/16 Reported Medications Potassium Chloride (Potassium Chloride) 20 Meq Tablet.er, 20 MEQ PO HS 07/11/16 Potassium Chloride (Potassium Chloride) 20 Meq Tablet.er, 40 MEQ PO WB 07/11/16 Ospemifene (Osphena) 60 Mg Tablet, 60 MG PO DAILY 07/11/16 Omeprazole (Omeprazole) 20 Mg Tablet.dr, 20 MG PO BID 07/11/16 Bumetanide (Bumetanide) 1 Mg Tablet, 1 MG PO BID, 1 Refill 07/11/16 Amiodarone HCl (Amiodarone HCl) 200 Mg Tablet, 200 MG PO DAILY 07/11/16 Melatonin (Melatonin) 3 Mg Tablet, 5-10 MG PO HS Y for SLEEP 06/30/16 Mirabegron (Myrbetriq) 25 Mg Tab.er.24h, 25 MG PO DAILY, TAB 06/30/16 Prednisone (Prednisone) 5 Mg Tablet, 7.5 MG PO WB 06/30/16 Atenolol (Atenolol) 50 Mg Tablet, 50 MG PO DAILY 06/30/16 Acetaminophen (Tylenol) 325 Mg Tablet, 1-2 TAB PO PRN 06/30/16 Donepezil HCl (Donepezil HCl) 5 Mg Tablet, 5 MG PO HS 06/01/16 Rifaximin (Xifaxan) 550 Mg Tablet, 550 MG PO BID, TAB 06/01/16 Polyethylene Glycol 3350 (Miralax) 17 Gm Powd.pack, 1 PACKET PO DAILY Y for CONSTIPATION 06/01/16 Levothyroxine Sodium (Levothyroxine Sodium) 112 Mcg Tablet, 112 MCG PO ACB 07/05/15 Calcium Carbonate/Vitamin D3 (Calcium 600 + Vit D Caplet) 1 Each Tablet, 1 TAB PO DAILY 10/16/14 Pramipexole Di-HCl (Mirapex) 1 Mg Tablet, 1 MG PO DAILY 04/19/14 Divalproex Sodium (Divalproex Sodium) 500 Mg Tablet.dr, 500 MG PO DAILY 11/23/13 Sertraline Hcl (Zoloft) 100 Mg Tablet, 100 MG PO DAILY 09/27/09 Discontinued Reported Medications Apixaban (Eliquis) 5 Mg Tablet, 5 MG PO BID, #180 11/23/13 Allergies: Coded Allergies: phenylbutazone (Verified Allergy, Mild, HIVES (BUTAZOLIDIN - MANU DISC), ) lansoprazole (Verified Adverse Reaction, Mild, DIARRHEA, 06/02/16) Assessment & Plan Assessment I have independently evaluated and examined this patient. I reviewed the chart, the patient's history, and the [employer]'s documented findings as above. We discussed and formulated the assessment and plan as above with additions as below: Mrs. Liu reports increasing edema since discharge with associated dyspnea without increasing weight. Weight at discharge was 100.9 kg current weight 99.2 kilograms. She reports being given an increased dose Bumex without improvement. Xarelto has been on hold since identification of colonic polyps at colonoscopy a week ago. Outpatient records describe history of dementia in addition to above -noted problems and moderate tricuspid regurgitation reported with minimal increased PA pressure on last echocardiogram. On examination the patient is cooperative. Breath sounds are diminished at the bases bilaterally but respirations nonlabored. Abdomen is obese with mild generalized tenderness to palpation, there is pitting edema of the abdominal wall-especially right upper quadrant. There is tender edema in both lower extremities with minor erythema distally bilaterally suggestive of stasis. Renal function stable, hemoglobin down slightly since discharge. Littlejohn catheter to be placed so output can be monitored accurately (patient reports urinary incontinence). IV Bumex to be given tonight and continue tomorrow. Venous Doppler negative. Chest x-ray reviewed by myself demonstrating increased pleural effusions from last admission but no significant increased vascular markings. Echocardiogram and hepatic Doppler scheduled-patient remained has been on hormonal therapy for breast cancer recently but Xarelto on hold; increased risk thrombosis-evaluate for portal vein thrombosis in addition increased right- sided cardiac pressures. Hold Osphena. Iron deficiency demonstrated last admission and patient reports she received "one unit" of iron in addition to 3 units of blood. Oral iron initiated, maybe of benefit from additional IV iron while here. Plan/Intensity of Service Outpatient records reviewed, chest x-ray reviewed by myself, discussed with ER provider, laboratory data reviewed, recent record reviewed. Lower extremity venous Doppler report discussed with agricultural engineering technician. DARRICK GLEASON APRN Jul 11, 2016 17:41 KURTIS ORTEGA MD Jul 11, 2016 20:33
[2016-07-11] MEDS ORDERED: POLYETHYL.GLYCOL 3350 PACKET 17gm PO PRN (18:30)
[2016-07-11] MEDS ORDERED: BUMETANIDE 1 MG/4 ML INJECTION IV ONE (19:15)
[2016-07-11] MEDS: OMEPRAZOLE 20 MG CAPSULE PO SCH (19:22)
--- NOTE | 2016-07-11 19:23 | NUR ---
SHIFT SUMMARY VSS. RA. NORCO GIVEN FOR PAIN. PATIENT EATING SUPPER NOW. NPO AFTER MIDNIGHT FOR LIVER ULTRASOUND. VU PATENT AND DRAINING WELL. BED ALARM IN USE.
[2016-07-11] MEDS: DONEPEZIL 5 MG TABLET PO SCH (20:45)
[2016-07-11] MEDS: MELATONIN 5 MG TABLET PO SCH (20:45)
[2016-07-11] MEDS: RIFAXIMIN 550 MG TABLET PO SCH (20:45)
[2016-07-11 20:46] VITALS: PULSE 68
[2016-07-12 00:03] VITALS: BP 118/55; PULSE 61; RESP 18; TEMP 97.2; O2SAT 93
--- NOTE | 2016-07-12 02:35 | NUR ---
PRN PT WAS GIVEN PAIN MEDICATION FOR 8/10 BLE AND BACK PAIN. PT ALSO HELPED WITH REPOSITIONING. ALERT AND ORIENTED.
[2016-07-12] MEDS: OMEPRAZOLE 20 MG CAPSULE PO SCH ×2 (05:50→17:37)
[2016-07-12] MEDS: LEVOTHYROXINE 112 MCG TABLET PO SCH (05:50)
[2016-07-12 05:56] LABS: BASOPHILS % (AUTO) 0.2 % (0-2); EOSINOPHILS # (AUTO) 0.1 T/MM3 (0-0.5); EOSINOPHILS % (AUTO) 1.7 % (0-4); HCT - HEMATOCRIT 27.1 % (36-46); HGB - HEMOGLOBIN 7.7 GM/DL (12-16); IMMATURE GRANULOCYTE # (AUTO) 0.02 T/MM3 (0.00-0.03); IMMATURE GRANULOCYTE % (AUTO) 0.5 % (0.0-0.5); LYMPHOCYTES # (AUTO) 1.6 T/MM3 (1-4.8); LYMPHOCYTES % (AUTO) 38.3 % (23-45); MEAN CORPUSCULAR HGB 27.5 UUG (26-34); MEAN CORPUSCULAR HGB CONC(MCHC 28.4 GM/DL (31-37); MEAN CORPUSCULAR VOLUME 96.8 UM3 (80-100); MEAN PLATELET VOLUME 11.8 UM3 (9.4-12.4); MONOCYTES # (AUTO) 0.4 T/MM3 (0-0.8); MONOCYTES % (AUTO) 8.7 % (0-9.0); NEUTROPHILS #(AUTO)-ABSOLUTE 2.1 T/MM3 (1.8-7.7); NEUTROPHILS % (AUTO) 50.6 % (33-66); WBC - WHITE BLOOD COUNT 4.2 T/MM3 (4.5-11.0)
[2016-07-12 06:20] LABS: ANION GAP 10 MEQ/L (5-15); BUN/CREATININE RATIO 19 RATIO (6-26); CALCIUM 9.3 MG/DL (8.4-10.2); CHLORIDE 103 MEQ/L (98-107); CO2 - CARBON DIOXIDE 33 MEQ/L (22-30); CREATININE 0.8 MG/DL (0.7-1.2); GLOMERULAR FILTRATION RATE 69; GLUCOSE 83 MG/DL (65-110); POTASSIUM 3.7 MEQ/L (3.6-5); SODIUM 146 MEQ/L (134-144)
--- NOTE | 2016-07-12 07:20 | NUR ---
SUMMARY. PT SLEPT WELL THIS SHIFT. WAS GIVEN PAIN MEDICATION FOR 8/ PAIN. VU INTACT. ON DECEDENT DRAINAGE. BLE ELEVATED DUE TO EDEMA. EDUCATED ABOUT CALL LIGHT USE AND PT SAFETY. ALERT AND ORIENTED.
[2016-07-12 07:40] VITALS: BP 120/53; PULSE 65; RESP 12; TEMP 96.7; O2SAT 94
[2016-07-12 08:00] VITALS: PULSE 65; RESP 18
[2016-07-12] MEDS ORDERED: PNEUMOCOCCAL VAC. ADMIN. CHARGE INJ ONE (08:09)
[2016-07-12 09:30] VITALS: PULSE 65
[2016-07-12] MEDS: RIFAXIMIN 550 MG TABLET PO SCH ×2 (09:49→20:59)
[2016-07-12] MEDS: ATENOLOL 50 MG TABLET PO SCH (09:50)
[2016-07-12] MEDS: POTASSIUM CHLORIDE 20 MEQ TABLET PO SCH (09:50)
[2016-07-12] MEDS: DIVALPROEX 500 MG TABLET PO SCH (09:51)
[2016-07-12] MEDS: PRAMIPEXOLE 1 MG TABLET PO SCH (09:51)
[2016-07-12] MEDS: MIRABEGRON 25 MG TABLET PO SCH (09:51)
[2016-07-12] MEDS: FERROUS GLUCONATE 324 MG TABLET PO SCH ×2 (09:52→18:12)
[2016-07-12] MEDS: PredniSONE 5 MG TABLET PO SCH (09:57)
[2016-07-12] MEDS: AMIODARONE 200 MG TABLET PO SCH (09:57)
[2016-07-12] MEDS: SERTRALINE 100 MG TABLET PO SCH (09:58)
[2016-07-12] MEDS ORDERED: BUMETANIDE 2.5mg INJECTION IV ONE ×3 (10:00→21:00)
[2016-07-12] MEDS ORDERED: ALBUMIN HUMAN 25% 12.5gm 50ml IV SCH (10:00)
--- NOTE | 2016-07-12 10:41 | NUR ---
CM CM IN TO VISIT WITH PT. CM EXPLAINED ROLE AND PROVIDED CONTACT INFORMATION. PT WAS AT [facility] AND PLANS TO RETURN THERE. PT IS AWARE TO CONTACT CM SHOULD NEEDS [facility]ISE.
[2016-07-12] MEDS ORDERED: NORMAL SALINE 500 ML IV PRN (10:45)
[2016-07-12] MEDS ORDERED: METOLAZONE 5 MG TABLET PO ONE (11:00)
[2016-07-12 11:29] LABS: INR 1.12 (0.76-1.04); PROTHROMBIN TIME 12.2 SEC (9.31-12.49)
[2016-07-12 11:34] LABS: ABSOLUTE RETICS # 0.1193 T/MM3 (0.0300-0.0900); RETICULOCYTE % 4.5 % (0.6-1.7); RETICULOCYTE HGB 39.1 PG (30.8-36.6)
[2016-07-12] MEDS ORDERED: NORMAL SALINE 500 ML IV SCH (13:08)
[2016-07-12] MEDS ORDERED: DiphenhydrAMINE 25 MG CAPSULE PO ONE (13:15)
[2016-07-12] MEDS ORDERED: ACETAMINOPHEN 325 MG TABLET PO ONE (13:15)
--- NOTE | 2016-07-12 13:17 | PNPDOC ---
Subjective Date DATE: 07/12/16 TIME: 13:07 Subjective Chart reviewed extensively, > 1 hour spent in reviewing prior records in addition to 20 minute discussion with patient and family. Multiple medical comorbidities with known liver cirrhosis (very mild per family report, follows with Dr. Cade) of unclear etiology, morbid obesity, recent admission for GI bleeding and symptomatic anemia with c-scope done by Dr. Winters without active bleeding source. A malignant polyp was removed with f/ u planned for repeat endoscopy for further evaluation (see below). She returned due to worsening edema and dyspnea. She has known CAD and follows with Dr. Pimentel typically, denies any recent angina. She discharged on 07/07 and at that time had very little LE edema. Today she does have 2+ edema to the abdomen, is dyspneic at times although on room air. Her family has many questions about what is driving this process, next steps. They would like her full medical records to be reviewed including all of her records at several facilities in [place]. She has seen [facility]ia in the past for her breast cancer s/p lumpectomy. Abdominal US is ordered and pending to be done this morning. LLE doppler was done yesterday as there is slightly more edema in the LLE and was negative for any thrombus. TTE is ordered and pending, will need to be read by cardiology when completed. Hb is 7.7 currently; there is concern for ongoing anemia issues but no obvious blood source. Labs reviewed in our system. On 07/01 she had a Fe saturation of 5% and received a dose of IV iron during her recent hospitalization as well as several PRBC transfusions. LDH was notably elevated >700. FOBT was positive on 07/05, not surprising given concern for GI bleeding. Pathology after colonoscopy and polyp removal from the proximal ascending colon was notable for intramucosal adenocarcinoma with indeterminate margins. Discussion was held at that time with the family by Dr. Winters as right hemicolectomy was considered but she was felt to be a very high operative risk. The recommendation was for early endoscopic f/u (3 months ) for further evaluation rather than hemicolectomy and they agreed that would be optimal. Objective Vital Signs Vital signs Vital Signs Date Time Temp Pulse Resp B/P Pulse Ox O2 Delivery O2 Flow Rate FiO2 07/12/16 09:30 65 07/12/16 07:40 96.7 12 120/53 94 Room Air Height (Feet): 5 Height (Inches): 3.00 Weight (Kilograms): 98.000 General General Appearance: Alert, Orientated x 3, No Acute Distress Comments morbidly obese Eyes (Brief) Eyes: FOUND: EOMI, PERRL, NOT FOUND: scleral icterus ENMT (Brief) ENMT: FOUND: hearing intact, mucosa moist Neck (Brief) Comments thick, supple, cannot appreciate jugular veins Respiratory (Brief) Comments clear upper airways bilaterally, dull bases, poor effort Cardiovascular (Brief) Cardiac: FOUND: pedal edema (2+ BLE to the abdomen ), regular rate, regular rhythm Abdomen (Brief) Abdominal: FOUND: soft Comments obese, nontender, nondistended (Brief) Comments littlejohn intact with scant yellow urine draining Extremities (Brief) Extremity : Extremity Finding: FOUND: edema (2+ throughout ), warm, NOT FOUND: cyanosis Integumentary (Brief) Integumentary: FOUND: dry, warm, NOT FOUND: rash Psychiatric (Brief) Psychiatric: FOUND: alert, attentive, normal affect Laboratory Laboratory Laboratory Tests 07/11/16 15:45 07/12/16 05:48 Laboratory Tests 07/11/16 15:45 07/12/16 05:48 Radiology PROCEDURE: CHEST 2-VIEWS UPRIGHT (PA \T\ LAT) from 07/11/16 Encounter: Initial COMPARISON: June 30, 2016 FINDINGS: Prior right PICC line is been removed. Left dual lead cardiac pacemaker again seen. Surgical clips projecting over the left breast area. New small bilateral pleural effusions seen on the lateral view with some mildly increased interstitial markings. No pneumothorax. The heart size and mediastinal contours are stable. IMPRESSION: New small pleural effusions and findings of mild pulmonary edema. Per verbal report, LLE doppler study negative for acute thrombus. Abdominal sono ordered and pending at this time, not yet completed. Assessment & Plan Problems: (1) Anasarca Status: Acute Assessment & Plan: Present on admission (2) Pleural effusion Status: Acute (3) Edema Status: Acute Qualifiers: Edema type: generalized Qualified Codes: R60.1 - Generalized edema (4) Adenocarcinoma Status: Acute Assessment & Plan: Found on polypectomy-07/02/16 (5) Leg erythema Status: Acute Assessment & Plan: Present on admission, left lower extremity erythema and warmth, improved today (6) Right-sided congestive heart failure Status: Chronic (7) HTN (hypertension) Status: Chronic (8) Paroxysmal atrial fibrillation Status: Chronic (9) Anemia of chronic disease Status: Chronic Assessment & Plan: Acute on chronic, has chronic pancytopenia but now requiring ongoing transfusions to keep Hb stable over time (10) CKD (chronic kidney disease), stage III Status: Chronic Assessment & Plan: Recent BL creatinine improved to 1.0 (11) Invasive ductal carcinoma of breast, stage 2 Onset Date: ~ 2006 Status: Chronic (12) Thrombocythemia Status: Chronic Assessment & Plan: Platelet count on admission 86 (13) Superficial thrombophlebitis Status: Acute Qualifiers: Superficial thrombophlebitis-Involved body area: upper extremity Laterality : right Qualified Codes: I80.8 - Phlebitis and thrombophlebitis of other sites (14) GERD (gastroesophageal reflux disease) Status: Chronic (15) History of recent hospitalization Status: Chronic Assessment & Plan: Discharged 07/07/16 after evaluation for symptomatic anemia (16) Hypothyroidism Status: Chronic (17) Osteoarthritis Status: Chronic (18) Depression Status: Chronic Assessment Assessment as above, plan as follows: More aggressive diuresis today with albumin support; will give 25 g BID and bumex 2 mg IV after dosing PRBC transfusion today given symptomatic at presentation with intermittent chest pressure/dyspnea and Hb <8 with known CAD Follow results of abdominal ultrasound to ensure no PV thrombus or other intra- abdominal causes of acute decompensation from a volume standpoint. Low salt diet, not restricting salt outside of the hospital and this could have caused decompensation as well. TTE ordered and pending, Dr. Chambers to review Continue littlejohn catheter while diuresing. Check Fe saturations again as she has had IV iron/PRBC since last check. Check haptoglobin, LDH, retic count to look for alternate causes of worsening anemia. Will obtain records from [facility] to evaluate further situation with her liver ; has last see Dr. Cade 1 year ago. Continue to hold osphena (SERM) due to increased risk of thrombosis. SCDs for DVT prophylaxis, continue off eliquis and avoid blood thinning medications acutely. Strict I/Os and daily weights while inpatient. Additional dose of diuretic after PRBC today if responding. Will make inpatient; further investigation needed of acute decompensation and will need to monitor here for at least 2-3 days. May start IV iron tomorrow, further plans pending review of outside records and lab testing obtained as well as TTE and abdominal ultrasound. Plan/Intensity of Service Inpatient and outpaient records reviewed, chest x-ray reviewed by myself as was LLE doppler imaging (report pending). Discussed with patient, sons, case management today. Labs and diagnostic testing ordered, as well as PRBC and albumin/bumex. DVT Prophylaxis: SCD'S Code Status Full Code Hospital Course Summary Disclaimer The hospital course summary below is not to be considered part of the above Progress Note. Hospital Course Summary Admit patient to outpatient observation under care of Dr. Ortega for anasarca , pleural effusion, anemia Monitor on cardiac telemetry. Given episodes of chest pain, we will obtain serial troponin 3. Given anemia will Type and screen patient as she may require blood transfusion. During recent hospitalization she did receive 3 units of packed red blood cells. 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 She is under the care of Dr. Zuniga for chronic anemia as well as history of breast cancer in 2008 Chronic anticoagulation has been on hold since previous admission on 06/30. She had been taking Eliquis for chronic Will place littlejohn cath for strict AMOR. Patient will need to be gently diuresed giving anasarca. Discuss diuresing plan with attending Dr Ortega Place thigh high janna hose to aid in compression and peripheral edema. We'll monitor left lower extremity carefully as it is slightly warm and red. Will obtain a venous duplex of LLE to rule out acute DVT. Will obtain CBC and BMP tomorrow morning to follow blood counts, renal function and electrolytes. Will discuss further plan of care with attending, Dr. Ortega. At time of discharge medical care will return to PCP Dr Taveras 07/12/16 More aggressive diuresis today with albumin support; will give 25 g BID and bumex 2 mg IV after dosing PRBC transfusion today given symptomatic at presentation with intermittent chest pressure/dyspnea and Hb <8 with known CAD Follow results of abdominal ultrasound to ensure no PV thrombus or other intra- abdominal causes of acute decompensation from a volume standpoint. Low salt diet, not restricting salt outside of the hospital and this could have caused decompensation as well. TTE ordered and pending, Dr. Chambers to review Continue littlejohn catheter while diuresing. Check Fe saturations again as she has had IV iron/PRBC since last check. Check haptoglobin, LDH, retic count to look for alternate causes of worsening anemia. Will obtain records from [facility] to evaluate further situation with her liver ; has last see Dr. Cade 1 year ago. Continue to hold osphena (SERM) due to increased risk of thrombosis. SCDs for DVT prophylaxis, continue off eliquis and avoid blood thinning medications acutely. Strict I/Os and daily weights while inpatient. Additional dose of diuretic after PRBC today if responding. CHANTELLE OWENS MD Jul 12, 2016 13:17
[2016-07-12] MEDS ORDERED: PNEUMOCOCCAL 13 VACCINE 0.5 ML SYRINGE IM ONE (14:45)
--- NOTE | 2016-07-12 15:27 | ECHOF ---
DATE OF SERVICE 07/11/2016 TECHNICAL QUALITY Technically good 2D, M-mode, Doppler echocardiographic images were submitted for interpretation. FINDINGS 1. CARDIAC CHAMBERS: Left heart cardiac chambers are normal in size. Left atrium measured 4.0 cm, which is upper normal range in size. Aortic root diameter is normal. The right ventricle appears mildly enlarged. Right atrium appears moderately enlarged. RV contractility is preserved. Pacemaker leads are seen in the right heart. 2. LEFT VENTRICLE: Borderline LVH is present. Systolic function is normal. Wall motion analysis is normal. Ejection fraction measured 67%. Diastolic function assessment showed normal E/A ratio of 1.4. E/e prime ratio of 38 is suggestive of diastolic dysfunction grade 2/4 (pseudonormal pattern). 3. VALVES: Aortic valve exhibits mild sclerosis. Valve opening is normal. Mitral valve exhibits annular calcification and sclerosis. Valve opening is normal. Tricuspid valve structure and motion appear normal. Normal valve excursion. 4. DOPPLER: Doppler shows [id number] tricuspid regurgitation. Anksy-ga-nqox regurgitation involving all other three valves. Normal flow velocities throughout. No evidence of pericardial effusion, intracardiac mass, or demonstrable shunts. Systolic PA pressure is estimated at 41 mmHg. Mild pulmonary hypertension. Central venous pressure is estimated to be normal. IMPRESSION 1. Borderline atrial enlargement. 2. Borderline left ventricular hypertrophy with normal systolic function. EF of 67%. Suggested grade 2/4 diastolic dysfunction. 3. Dilated right atrium and right ventricle. 4. Mild pulmonary hypertension. 5. Normal central venous pressure. 6. [id number] tricuspid regurgitation. 7. Sclerotic changes of the aortic and mitral valve. MTDD
[2016-07-12 16:24] VITALS: BP 125/61; PULSE 60; RESP 18; TEMP 97.7; O2SAT 93
[2016-07-12] MEDS ORDERED: DiphenhydrAMINE 50 MG/ML INJECTION IV PRN (17:00)
--- NOTE | 2016-07-12 19:26 | NUR ---
SHIFT SUMMARY PT ALERT AND ORIENTED X3. PT ON RA, DENIES SOA. RATES LEG PAIN 6/10, PRN NORCO ADMINISTERED, PT REPORTS DECREASED PAIN. PT DENIES CHEST PAIN OR TIGHTNESS AT THIS TIME, DENIES N/V. UP WITH ASSIST X2, GAIT BELT, WALKER TO [facility] [place]. ONE BM THIS SHIFT. TURN Q2H WITH ASSIST X2. VU PATENT, ADEQUATE URINE OUTPUT. SECOND UNIT OF BLOOD TRANSFUSING AT THIS TIME, VSS AND PT TOLERATING WELL. BLOOD INFUSING INTO LEFT WRIST, IVL POST TRANSFUSION. PT ABLE TO MAKE NEEDS KNOWN. PT EXPRESSES UNDERSTANDING OF S/S TO REPORT TO NURSING STAFF. BED ALARM ON, CALL LIGHT WITHIN REACH.
--- NOTE | 2016-07-12 20:02 | NUR ---
STUDENT CHARTING REVIEWED BY THIS NURSE.
[2016-07-12] MEDS: DONEPEZIL 5 MG TABLET PO SCH (20:59)
[2016-07-12] MEDS ORDERED: ALBUMIN HUMAN 25% 12.5gm 50ml IV ONE (21:00)
[2016-07-12] MEDS: MELATONIN 5 MG TABLET PO SCH (22:49)
[2016-07-13 00:50] VITALS: BP 128/67; PULSE 60; RESP 18; TEMP 97.2; O2SAT 92
[2016-07-13 05:36] LABS: BASOPHILS % (AUTO) 0.2 % (0-2); EOSINOPHILS # (AUTO) 0.1 T/MM3 (0-0.5); EOSINOPHILS % (AUTO) 1.1 % (0-4); HCT - HEMATOCRIT 33.6 % (36-46); HGB - HEMOGLOBIN 10.3 GM/DL (12-16); IMMATURE GRANULOCYTE # (AUTO) 0.05 T/MM3 (0.00-0.03); IMMATURE GRANULOCYTE % (AUTO) 1.1 % (0.0-0.5); LYMPHOCYTES # (AUTO) 1.7 T/MM3 (1-4.8); MEAN CORPUSCULAR HGB 29.4 UUG (26-34); MEAN CORPUSCULAR HGB CONC(MCHC 30.7 GM/DL (31-37); MEAN PLATELET VOLUME 12.1 UM3 (9.4-12.4); MONOCYTES # (AUTO) 0.4 T/MM3 (0-0.8); NEUTROPHILS #(AUTO)-ABSOLUTE 2.3 T/MM3 (1.8-7.7); NEUTROPHILS % (AUTO) 51.6 % (33-66); WBC - WHITE BLOOD COUNT 4.4 T/MM3 (4.5-11.0)
[2016-07-13 05:53] LABS: ALBUMIN/GLOBULIN RATIO 1.5 RATIO (1.1-2.2); ALKALINE PHOSPHATASE 53 U/L (38-126); ALT (SGPT) 28 U/L (9-52); ANION GAP 14 MEQ/L (5-15); AST (SGOT) 45 U/L (14-36); BUN/CREATININE RATIO 16 RATIO (6-26); CALCIUM 9.9 MG/DL (8.4-10.2); CHLORIDE 98 MEQ/L (98-107); CO2 - CARBON DIOXIDE 36 MEQ/L (22-30); GLOMERULAR FILTRATION RATE 53; GLUCOSE 90 MG/DL (65-110); POTASSIUM 3.6 MEQ/L (3.6-5); SODIUM 148 MEQ/L (134-144); TOTAL PROTEIN 6.7 G/DL (6.3-8.2)
[2016-07-13] MEDS: OMEPRAZOLE 20 MG CAPSULE PO SCH ×2 (06:19→17:24)
[2016-07-13] MEDS: LEVOTHYROXINE 112 MCG TABLET PO SCH (06:19)
--- NOTE | 2016-07-13 07:17 | NUR ---
SUMMARY PT SLEPT WELL THIS SHIFT. WAS GIVEN UNIT OF BLOOD AND ALBUMIN THAT SHE TOLERATED WELL. PT ALERT AND ORIENTED. WAS GIVEN PAIN MEDICATION X2 FOR 8/10 BLE PAIN. EDEMA 1+ ON BLE. SCD'S IN PLACE. NO BM THIS SHIFT. ADEQUATE URINE OUTPUT. VU INTACT AND DRAINING WELL.
[2016-07-13 07:26] VITALS: BP 122/63; PULSE 62; RESP 22; TEMP 97.8; O2SAT 88
[2016-07-13 07:28] VITALS: O2SAT 91
[2016-07-13 08:03] VITALS: PULSE 61
[2016-07-13] MEDS: SERTRALINE 100 MG TABLET PO SCH (09:16)
[2016-07-13] MEDS: RIFAXIMIN 550 MG TABLET PO SCH ×2 (09:16→20:40)
[2016-07-13] MEDS: METOLAZONE 5 MG TABLET PO SCH (09:16)
[2016-07-13] MEDS: PRAMIPEXOLE 1 MG TABLET PO SCH (09:16)
[2016-07-13] MEDS: DIVALPROEX 500 MG TABLET PO SCH (09:16)
[2016-07-13] MEDS: PredniSONE 5 MG TABLET PO SCH (09:16)
[2016-07-13] MEDS: MIRABEGRON 25 MG TABLET PO SCH (09:16)
[2016-07-13] MEDS: POTASSIUM CHLORIDE 20 MEQ TABLET PO SCH (09:17)
[2016-07-13] MEDS: FERROUS GLUCONATE 324 MG TABLET PO SCH ×2 (09:17→18:05)
[2016-07-13] MEDS: ATENOLOL 50 MG TABLET PO SCH (09:17)
[2016-07-13] MEDS: AMIODARONE 200 MG TABLET PO SCH (09:17)
--- NOTE | 2016-07-13 10:22 | DI ---
Indication: ITS.REASON: erythema, pain and swelling of the LLE PROCEDURE: US VENOUS DUPLEX, LOWER EXT LT: Encounter: Initial Comparison: April 25, 2009 Technique: Color Doppler duplex and grayscale sonographic imaging of the left lower extremity was performed. Findings: There is no evidence for acute deep venous thrombosis in the left thigh. Specifically, serial graded compression was performed from the inguinal ligament to the popliteal bifurcation, on the left thigh, demonstrating appropriate compressibility of the deep venous system. In addition, color and pulsed Doppler demonstrate appropriate spontaneous flow, variation with respiration, and augmentation with calf compression. At the ankle, normal flow is identified in the posterior tibial veins; these vessels are also normal in caliber. Impression: No evidence of acute DVT in the left lower limb. There is a preliminary report by [facility]. .
--- NOTE | 2016-07-13 11:36 | PNPDOC ---
Subjective Date DATE: 07/13/16 TIME: 11:23 Subjective Feeling better today after PRBC transfusion and diuretics. Good UOP yesterday with bumex and albumin. Discussed lab values, confirmed that her eliquis was held at last discharge and she was not receiving it at the nursing facility. Denies fevers, chills, nausea. + LOPEZ and abdominal bloating. No melena or hematochezia. Records reviewed, with permission, in the [facility] system with last GI encounter her colonoscopy last August 2015. Oncology notes reviewed, visit was breast cancer f/u and no changes were made. No evaluation of pancytopenia or mention of it at that time. She saw Dr. Pimentel last in March, good volume balance at that time, PM batter checked and doing well, amio continued for PAF. Objective Vital Signs Vital signs Vital Signs Date Time Temp Pulse Resp B/P Pulse Ox O2 Delivery O2 Flow Rate FiO2 07/13/16 08:03 61 07/13/16 07:28 91 Nasal Cannula 1.00 07/13/16 07:26 97.8 22 122/63 Height (Feet): 5 Height (Inches): 3.00 Weight (Kilograms): 95.400 General General Appearance: Alert, Orientated x 3, Cooperative, No Acute Distress Eyes (Brief) Eyes: FOUND: EOMI, PERRL, NOT FOUND: scleral icterus ENMT (Brief) ENMT: FOUND: hearing intact, mucosa moist Respiratory (Brief) Comments clear upper airways with diminished bases, no rales or wheezing Cardiovascular (Brief) Cardiac: FOUND: pedal edema, regular rate, regular rhythm Abdomen (Brief) Comments soft, obese, no palpable fluid wave, nontender and nondistended (Brief) Comments littlejohn intact with yellow urine draining Integumentary (Brief) Integumentary: FOUND: dry, warm, NOT FOUND: rash Psychiatric (Brief) Psychiatric: FOUND: alert, attentive, normal affect, oriented Laboratory Laboratory Laboratory Tests 07/11/16 15:45 07/12/16 05:48 07/13/16 04:37 Laboratory Tests 07/11/16 15:45 07/12/16 05:48 07/12/16 21:49 07/13/16 04:37 Radiology PROCEDURE: US VENOUS DUPLEX, LOWER EXT LT 07/11/16 Encounter: Initial Comparison: April 25, 2009 Technique: Color Doppler duplex and grayscale sonographic imaging of the left lower extremity was performed. Findings: There is no evidence for acute deep venous thrombosis in the left thigh. Specifically, serial graded compression was performed from the inguinal ligament to the popliteal bifurcation, on the left thigh, demonstrating appropriate compressibility of the deep venous system. In addition, color and pulsed Doppler demonstrate appropriate spontaneous flow, variation with respiration, and augmentation with calf compression. At the ankle, normal flow is identified in the posterior tibial veins; these vessels are also normal in caliber. Impression: No evidence of acute DVT in the left lower limb. Abdominal ultrasound done 07/12 and results pending. TTE done with preliminary reading by Dr. Chambers: IMPRESSION 1. Borderline atrial enlargement. 2. Borderline left ventricular hypertrophy with normal systolic function. EF of 67%. Suggested grade 2/4 diastolic dysfunction. 3. Dilated right atrium and right ventricle. 4. Mild pulmonary hypertension. 5. Normal central venous pressure. 6. [id number] tricuspid regurgitation. 7. Sclerotic changes of the aortic and mitral valve. Assessment & Plan Problems: (1) Anasarca Status: Acute Assessment & Plan: Present on admission (2) Pleural effusion Status: Acute (3) Edema Status: Acute Qualifiers: Edema type: generalized Qualified Codes: R60.1 - Generalized edema (4) Adenocarcinoma Status: Acute Assessment & Plan: Found on polypectomy-07/02/16 (5) Leg erythema Status: Acute Assessment & Plan: Present on admission, left lower extremity erythema and warmth, improved today (6) Right-sided congestive heart failure Status: Chronic (7) HTN (hypertension) Status: Chronic (8) Paroxysmal atrial fibrillation Status: Chronic (9) Anemia of chronic disease Status: Chronic Assessment & Plan: Acute on chronic, has chronic pancytopenia but now requiring ongoing transfusions to keep Hb stable over time. Labs concerning for subacute hemolysis as well with LDH >600 (was >700 in the recent past) and haptoglobin 4 (drawn prior to transfusion on 07/12). (10) CKD (chronic kidney disease), stage III Status: Chronic Assessment & Plan: Recent BL creatinine improved to 1.0 (11) Invasive ductal carcinoma of breast, stage 2 Onset Date: ~ 2006 Status: Chronic (12) Thrombocythemia Status: Chronic Assessment & Plan: Platelet count on admission 86 (13) Superficial thrombophlebitis Status: Acute Qualifiers: Superficial thrombophlebitis-Involved body area: upper extremity Laterality : right Qualified Codes: I80.8 - Phlebitis and thrombophlebitis of other sites (14) GERD (gastroesophageal reflux disease) Status: Chronic (15) History of recent hospitalization Status: Chronic Assessment & Plan: Discharged 07/07/16 after evaluation for symptomatic anemia (16) Hypothyroidism Status: Chronic (17) Osteoarthritis Status: Chronic (18) Depression Status: Chronic Assessment Assessment as above, plan as follows: Continue aggressive diuresis today without further albumin support; will give bumex 2 mg IV BID + metolazone 5 mg daily. Monitor Na levels, may need to relax free water restriction if increasing again tomorrow (148 today). Monitor Hb daily, given evidence of hemolysis will check peripheral smear. If abnormalities found will plan to involve Dr. Zuniga for further evaluation. Follow results of abdominal ultrasound to ensure no PV thrombus or other intra- abdominal causes of acute decompensation from a volume standpoint--> pending. Low salt diet, not restricting salt outside of the hospital and this likely contributed to edema and acute decompensation. TTE ordered read by Dr. Chambers, reviewed with no significant changes from previous. Continue littlejohn catheter while diuresing. Check Fe saturations again as she has had IV iron/PRBC since last check ( pending currently, drawn prior to PRBC given). Reticulocyte count appropriately elevated, haptoglobin low and LDH high as noted above. Continue to hold osphena (SERM) due to increased risk of thrombosis. SCDs for DVT prophylaxis, continue off eliquis and avoid blood thinning medications acutely. Strict I/Os and daily weights while inpatient. Will continue inpatient stay; further investigation needed of acute decompensation and will need to monitor here for at least 2-3 days. May start IV iron pending repeat Fe saturation (was 5% previously and received a dose of IV iron during last hospitalization). Plan/Intensity of Service Inpatient and outpaient records reviewed, reports from [facility] doppler. Discussed with patient, family, nursing today. Labs and diagnostic testing ordered. DVT Prophylaxis: SCD'S Code Status Full Code Hospital Course Summary Disclaimer The hospital course summary below is not to be considered part of the above Progress Note. Hospital Course Summary Admit patient to outpatient observation under care of Dr. Ortega for anasarca , pleural effusion, anemia Monitor on cardiac telemetry. Given episodes of chest pain, we will obtain serial troponin 3. Given anemia will Type and screen patient as she may require blood transfusion. During recent hospitalization she did receive 3 units of packed red blood cells. 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 She is under the care of Dr. Zuniga for chronic anemia as well as history of breast cancer in 2008 Chronic anticoagulation has been on hold since previous admission on 06/30. She had been taking Eliquis for chronic Will place littlejohn cath for strict AMOR. Patient will need to be gently diuresed giving anasarca. Discuss diuresing plan with attending Dr Ortega Place thigh high janna hose to aid in compression and peripheral edema. We'll monitor left lower extremity carefully as it is slightly warm and red. Will obtain a venous duplex of LLE to rule out acute DVT. Will obtain CBC and BMP tomorrow morning to follow blood counts, renal function and electrolytes. Will discuss further plan of care with attending, Dr. Ortega. At time of discharge medical care will return to PCP Dr Taveras 07/12/16 More aggressive diuresis today with albumin support; will give 25 g BID and bumex 2 mg IV after dosing PRBC transfusion today given symptomatic at presentation with intermittent chest pressure/dyspnea and Hb <8 with known CAD Follow results of abdominal ultrasound to ensure no PV thrombus or other intra- abdominal causes of acute decompensation from a volume standpoint. Low salt diet, not restricting salt outside of the hospital and this could have caused decompensation as well. TTE ordered and pending, Dr. Chambers to review Continue littlejohn catheter while diuresing. Check Fe saturations again as she has had IV iron/PRBC since last check. Check haptoglobin, LDH, retic count to look for alternate causes of worsening anemia. Will obtain records from [facility] to evaluate further situation with her liver ; has last see Dr. Cade 1 year ago. Continue to hold osphena (SERM) due to increased risk of thrombosis. SCDs for DVT prophylaxis, continue off eliquis and avoid blood thinning medications acutely. Strict I/Os and daily weights while inpatient. Additional dose of diuretic after PRBC today if responding. 07/13/16 Continue aggressive diuresis today without further albumin support; will give bumex 2 mg IV BID + metolazone 5 mg daily. Monitor Na levels, may need to relax free water restriction if increasing again tomorrow (148 today). Monitor Hb daily, given evidence of hemolysis will check peripheral smear. If abnormalities found will plan to involve Dr. Zuniga for further evaluation. Follow results of abdominal ultrasound to ensure no PV thrombus or other intra- abdominal causes of acute decompensation from a volume standpoint--> pending. Low salt diet, not restricting salt outside of the hospital and this likely contributed to edema and acute decompensation. TTE ordered read by Dr. Chambers, reviewed with no significant changes from previous. Continue littlejohn catheter while diuresing. Check Fe saturations again as she has had IV iron/PRBC since last check ( pending currently, drawn prior to PRBC given). Reticulocyte count appropriately elevated, haptoglobin low and LDH high as noted above. Continue to hold osphena (SERM) due to increased risk of thrombosis. SCDs for DVT prophylaxis, continue off eliquis and avoid blood thinning medications acutely. Strict I/Os and daily weights while inpatient. CHANTELLE OWENS MD Jul 13, 2016 11:30
[2016-07-13] MEDS: BUMETANIDE 2.5mg INJECTION IV SCH ×2 (12:28→20:40)
[2016-07-13 15:40] VITALS: BP 116/57; PULSE 63; RESP 20; TEMP 97.6; O2SAT 93
--- NOTE | 2016-07-13 19:50 | NUR ---
SHIFT SUMMARY PT ALERT AND ORIENTED X3. PT ON RA, DENIES SOA. RATES PAIN 7/10 AT THIS TIME, PRN NORCO ADMINISTERED EARLIER THIS SHIFT, SEE EMAR. PT DENIES N/V. UP WITH ASSIST X1, GAIT BELT, PIVOT TRANSFER TO RECLINER. TURN Q2H WITH ASSIST X1-2 WHEN PT IS IN BED. PT EXPRESSES UNDERSTANDING OF SHIFTING WEIGHT TO PREVENT SKIN BREAKDOWN. IVL LEFT WRIST PATENT. VU PATENT, ADEQUATE URINE OUTPUT. PT ABLE TO MAKE NEEDS KNOWN. BED ALARM ON, CALL LIGHT WITHIN REACH.
[2016-07-13] MEDS: MELATONIN 5 MG TABLET PO SCH (20:40)
[2016-07-13] MEDS: DONEPEZIL 5 MG TABLET PO SCH (20:40)
[2016-07-14] VITALS (9 sets, daily range): BP systolic 128–140; BP diastolic 52–62; PULSE 62–67; RESP 16–20; TEMP 96.7–96.9; O2SAT 88–93
[2016-07-14 00:45] LABS: IRON 325 UG/DL (37-170)
[2016-07-14 00:54] LABS: TOTAL IRON BINDING CAPACITY 358 UG/DL (261-497)
[2016-07-14 01:27] LABS: IRON % SAT (TRANSF %SAT)(CALC) 91 % (9-55)
[2016-07-14 05:29] LABS: HGB - HEMOGLOBIN 10.6 GM/DL (12-16); MEAN CORPUSCULAR HGB CONC(MCHC 30.3 GM/DL (31-37); MEAN CORPUSCULAR VOLUME 95.9 UM3 (80-100); MEAN PLATELET VOLUME 12.1 UM3 (9.4-12.4); RED BLOOD COUNT 3.65 M/MM3 (4.00-5.20); WBC - WHITE BLOOD COUNT 4.3 T/MM3 (4.5-11.0)
[2016-07-14 05:37] LABS: ALBUMIN 3.6 G/DL (3.5-5.0); ALBUMIN/GLOBULIN RATIO 1.4 RATIO (1.1-2.2); ALKALINE PHOSPHATASE 54 U/L (38-126); ALT (SGPT) 30 U/L (9-52); AST (SGOT) 44 U/L (14-36); BUN/CREATININE RATIO 14 RATIO (6-26); CALCIUM 9.8 MG/DL (8.4-10.2); CHLORIDE 93 MEQ/L (98-107); CREATININE 1.1 MG/DL (0.7-1.2); GLOMERULAR FILTRATION RATE 48; GLUCOSE 85 MG/DL (65-110); PHOSPHORUS 3.9 MG/DL (2.5-4.5); POTASSIUM 3.2 MEQ/L (3.6-5); SODIUM 146 MEQ/L (134-144); TOTAL PROTEIN 6.2 G/DL (6.3-8.2)
[2016-07-14 05:43] LABS: ANION GAP 11 MEQ/L (5-15)
[2016-07-14] MEDS: OMEPRAZOLE 20 MG CAPSULE PO SCH ×2 (05:43→17:31)
[2016-07-14] MEDS: LEVOTHYROXINE 112 MCG TABLET PO SCH (05:43)
[2016-07-14 05:48] LABS: CO2 - CARBON DIOXIDE 42 MEQ/L (22-30)
--- NOTE | 2016-07-14 06:39 | NUR ---
SUMMARY PT SLEPT WELL THIS SHIFT. ALERT AND ORIENTED X 3. WAS GIVEN PAIN MEDICATION AT MIDNIGHT FOR 10/30 BLE AND BACK PAIN. PT HAS ADEQUATE URINE OUTPUT. VU INTACT. +1 EDEMA ON HER BLE. SCDS ON. PT Hg 10.6 THIS MORNING. EDUCATED ABOUT USE OF CALL LIGHT AND PT SAFETY. ASSIST X 2 WITH REPOSITIONING. PT WAS EDUCATED ON POSITION CHANGES TO RELIVE PRESSURE FROM HER SACRAL AREA.
[2016-07-14] MEDS: POTASSIUM CHLORIDE 20 MEQ TABLET PO SCH (09:37)
[2016-07-14] MEDS: PredniSONE 5 MG TABLET PO SCH (09:38)
[2016-07-14] MEDS: RIFAXIMIN 550 MG TABLET PO SCH ×2 (09:38→22:09)
[2016-07-14] MEDS: PRAMIPEXOLE 1 MG TABLET PO SCH (09:38)
[2016-07-14] MEDS: ATENOLOL 50 MG TABLET PO SCH (09:39)
[2016-07-14] MEDS: METOLAZONE 5 MG TABLET PO SCH (09:39)
[2016-07-14] MEDS: SERTRALINE 100 MG TABLET PO SCH (09:39)
[2016-07-14] MEDS: MIRABEGRON 25 MG TABLET PO SCH (09:39)
[2016-07-14] MEDS: FERROUS GLUCONATE 324 MG TABLET PO SCH (09:40)
[2016-07-14] MEDS: AMIODARONE 200 MG TABLET PO SCH (09:40)
[2016-07-14] MEDS: DIVALPROEX 500 MG TABLET PO SCH (09:40)
[2016-07-14] MEDS: BUMETANIDE 2.5mg INJECTION IV SCH (09:41)
--- NOTE | 2016-07-14 11:04 | PNPDOC ---
DARRICK GLEASON V CORPORATE EXECUTIVE 07/14/16 1104: Subjective Date DATE: 07/14/16 TIME: 10:54 Subjective Bhavna is seen this morning while visiting with family. She is requiring oxygen this morning 1-2 liters to maintain saturations. Denies chest pain or GI complaints. She feels that anasarca/edema has improved. Noted to be down 6 KG since admission. Urinary output yesterday over 4800 ML. Objective Vital Signs Vital signs Vital Signs Date Time Temp Pulse Resp B/P Pulse Ox O2 Delivery O2 Flow Rate FiO2 07/14/16 07:35 93 Nasal Cannula 1.00 07/14/16 07:26 96.7 66 20 135/62 Height (Feet): 5 Height (Inches): 3.00 Weight (Kilograms): 93.000 General General Appearance: Alert, Orientated x 3, Cooperative, No Acute Distress Eyes (Brief) Eyes: FOUND: EOMI ENMT (Brief) ENMT: FOUND: mucosa moist, normal dentition, NOT FOUND: pharnyx erythema Neck (Brief) Neck: FOUND: midline, NOT FOUND: adenopathy, carotid bruits, tracheal deviation Respiratory (Brief) Respiratory: FOUND: equal bilaterally (Diminished), NOT FOUND: wheezes Cardiovascular (Brief) Cardiac: FOUND: regular rate, regular rhythm, NOT FOUND: murmur, pedal edema Capillary Refill: <2 sec Abdomen (Brief) Abdominal: FOUND: BS normo active x4, soft, NOT FOUND: distended, tender Extremities (Brief) Extremity : Side: Bilateral Extremity Finding: FOUND: edema Lymphatic (Brief) Lymphatic: NOT FOUND: adenopathy Musculoskeletal (Brief) Musculoskeletal: NOT FOUND: tenderness Integumentary (Brief) Integumentary: FOUND: dry, pink, warm Neurologic (Brief) Neurological: FOUND: cranial 2-12 intact Psychiatric (Brief) Psychiatric: FOUND: alert, attentive, normal affect, oriented Laboratory Laboratory Laboratory Tests 07/13/16 04:37 07/14/16 04:39 Laboratory Tests 07/12/16 21:49 07/13/16 04:37 07/14/16 04:39 Assessment & Plan Problems: (1) Anasarca Status: Acute Assessment & Plan: Present on admission (2) Pleural effusion Status: Acute (3) Edema Status: Acute Qualifiers: Edema type: generalized Qualified Codes: R60.1 - Generalized edema (4) Adenocarcinoma Status: Acute Assessment & Plan: Found on polypectomy-07/02/16 (5) Leg erythema Status: Acute Assessment & Plan: Present on admission, left lower extremity erythema and warmth, improved today (6) Right-sided congestive heart failure Status: Chronic (7) HTN (hypertension) Status: Chronic (8) Paroxysmal atrial fibrillation Status: Chronic (9) Anemia of chronic disease Status: Chronic Assessment & Plan: Acute on chronic, has chronic pancytopenia but now requiring ongoing transfusions to keep Hb stable over time. Labs concerning for subacute hemolysis as well with LDH >600 (was >700 in the recent past) and haptoglobin 4 (drawn prior to transfusion on 07/12). (10) CKD (chronic kidney disease), stage III Status: Chronic Assessment & Plan: Recent BL creatinine improved to 1.0 (11) Invasive ductal carcinoma of breast, stage 2 Onset Date: ~ 2006 Status: Chronic (12) Thrombocythemia Status: Chronic Assessment & Plan: Platelet count on admission 86 (13) Superficial thrombophlebitis Status: Acute Qualifiers: Superficial thrombophlebitis-Involved body area: upper extremity Laterality : right Qualified Codes: I80.8 - Phlebitis and thrombophlebitis of other sites (14) GERD (gastroesophageal reflux disease) Status: Chronic (15) History of recent hospitalization Status: Chronic Assessment & Plan: Discharged 07/07/16 after evaluation for symptomatic anemia (16) Hypothyroidism Status: Chronic (17) Osteoarthritis Status: Chronic (18) Depression Status: Chronic Assessment Plan/Intensity of Service 07/14/16 Continue to work on diuresing with IV Bumex BID and Metolazone daily. Weight continues to trend down. Low salt diet. Monitor intake and output closely Iron studies were elevated. Discontinued iron supplementation. Continue with potassium 40 milliequivalents in the morning. Will add 20 milliequivalents at supper for potassium supplementation. Continue to follow hemoglobin closely. She has received 2 units of packed red blood cells. Work on weaning down oxygen as able. Currently requiring 1 liter of by nasal cannula. Trend CO2 as it is elevated at 42. Recheck CBC and BMP tomorrow to follow blood counts, renal function and electrolytes Will discuss further plan of care with attending, Dr Ortega Code Status Full Code Hospital Course Summary Disclaimer The hospital course summary below is not to be considered part of the above Progress Note. Hospital Course Summary Admit patient to outpatient observation under care of Dr. Ortega for anasarca , pleural effusion, anemia Monitor on cardiac telemetry. Given episodes of chest pain, we will obtain serial troponin 3. Given anemia will Type and screen patient as she may require blood transfusion. During recent hospitalization she did receive 3 units of packed red blood cells. 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 She is under the care of Dr. Zuniga for chronic anemia as well as history of breast cancer in 2008 Chronic anticoagulation has been on hold since previous admission on 06/30. She had been taking Eliquis for chronic Will place littlejohn cath for strict AMOR. Patient will need to be gently diuresed giving anasarca. Discuss diuresing plan with attending Dr Ortega Place thigh high janna hose to aid in compression and peripheral edema. We'll monitor left lower extremity carefully as it is slightly warm and red. Will obtain a venous duplex of LLE to rule out acute DVT. Will obtain CBC and BMP tomorrow morning to follow blood counts, renal function and electrolytes. Will discuss further plan of care with attending, Dr. Ortega. At time of discharge medical care will return to PCP Dr Taveras 07/12/16 More aggressive diuresis today with albumin support; will give 25 g BID and bumex 2 mg IV after dosing PRBC transfusion today given symptomatic at presentation with intermittent chest pressure/dyspnea and Hb <8 with known CAD Follow results of abdominal ultrasound to ensure no PV thrombus or other intra- abdominal causes of acute decompensation from a volume standpoint. Low salt diet, not restricting salt outside of the hospital and this could have caused decompensation as well. TTE ordered and pending, Dr. Chambers to review Continue littlejohn catheter while diuresing. Check Fe saturations again as she has had IV iron/PRBC since last check. Check haptoglobin, LDH, retic count to look for alternate causes of worsening anemia. Will obtain records from [facility] to evaluate further situation with her liver ; has last see Dr. Cade 1 year ago. Continue to hold osphena (SERM) due to increased risk of thrombosis. SCDs for DVT prophylaxis, continue off eliquis and avoid blood thinning medications acutely. Strict I/Os and daily weights while inpatient. Additional dose of diuretic after PRBC today if responding. 07/13/16 Continue aggressive diuresis today without further albumin support; will give bumex 2 mg IV BID + metolazone 5 mg daily. Monitor Na levels, may need to relax free water restriction if increasing again tomorrow (148 today). Monitor Hb daily, given evidence of hemolysis will check peripheral smear. If abnormalities found will plan to involve Dr. Zuniga for further evaluation. Follow results of abdominal ultrasound to ensure no PV thrombus or other intra- abdominal causes of acute decompensation from a volume standpoint--> pending. Low salt diet, not restricting salt outside of the hospital and this likely contributed to edema and acute decompensation. TTE ordered read by Dr. Chambers, reviewed with no significant changes from previous. Continue littlejohn catheter while diuresing. Check Fe saturations again as she has had IV iron/PRBC since last check ( pending currently, drawn prior to PRBC given). Reticulocyte count appropriately elevated, haptoglobin low and LDH high as noted above. Continue to hold osphena (SERM) due to increased risk of thrombosis. SCDs for DVT prophylaxis, continue off eliquis and avoid blood thinning medications acutely. Strict I/Os and daily weights while inpatient. 07/14/16 Continue to work on diuresing with IV Bumex BID and Metolazone daily. Weight continues to trend down. Low salt diet. Monitor intake and output closely Iron studies were elevated. Discontinued iron supplementation. Continue with potassium 40 milliequivalents in the morning. Will add 20 milliequivalents at supper for potassium supplementation. Continue to follow hemoglobin closely. She has received 2 units of packed red blood cells. Work on weaning down oxygen as able. Currently requiring 1 liter of by nasal cannula. Trend CO2 as it is elevated at 42. Recheck CBC and BMP tomorrow to follow blood counts, renal function and electrolytes Will discuss further plan of care with attending, KURTIS Pete MD 07/14/16 9076: Assessment & Plan Assessment I have independently evaluated and examined this patient. I reviewed the chart, the patient's history, and the CORPORATE EXECUTIVE's documented findings as above. We discussed and formulated the assessment and plan as above with additions as below: Mrs. Liu was seen with family members at the bedside. She continues to complain of hypersensitive extremities but acknowledges that edema has improved. She denied dyspnea. Multiple family questions were answered. Patient remains on low-flow oxygen and has trace edema pretibially, respirations are nonlabored. Bicarbonate has increased from 31 to 42 with aggressive diuresis, weight is down 5.8 kg from admission. Switch Bumex to 2 mg by mouth daily, metolazone to Thursday, Thursday, Thursday administration. Hepatic sonogram reviewed-cirrhotic changes described, posterior ascites but no large volume ascites present, no evidence of thrombosis in the portal vein/ hepatic vein/IVC. Pathology review blood smear pending, hemolysis may in part be due to recent transfusion. Haptoglobin in the past normal. Iron level elevated currently after transfusion/IV iron infusion-discontinue by mouth. Previously low. Can potentially return to [facility] in the next 1-2 days on oral regimen with more aggressive diuretics than on admission. In addition to above diagnoses please add: #1 metabolic alkalosis Plan/Intensity of Service Sonograms reviewed by myself, extensive laboratory review with patient/son. DARRICK GLEASON APRN Jul 14, 2016 11:04 KURTIS ORTEGA MD Jul 14, 2016 18:48
--- NOTE | 2016-07-14 11:15 | DI ---
Indication: ITS.REASON: PORTAL HTN PROCEDURE: US ABD/PELVIC DOPPLER COMPLETE: Encounter: Initial Comparison: None FINDINGS: The abdominal aorta is nonaneurysmal. The gallbladder is surgically absent. CBD is normal measuring 3.2 mm. The pancreas is largely obscured by bowel gas. Visualized portions of the pancreas are unremarkable. The liver is diffusely echogenic in echotexture with nodular contour and left lobe hypertrophy suggesting cirrhosis. Duplex Doppler ultrasound was used to evaluate the velocity of flow within the portal vein and to document flow in the appropriate direction.. The hepatic veins are patent. The IVC is unremarkable. The spleen is normal, measuring 11.6 cm in length. No free fluid. Included portions of the right kidney are unremarkable. IMPRESSION: Evidence for abdominal cirrhosis with echogenic nodular liver parenchyma.. The flow within the portal vein is in the appropriate direction. The hepatic veins and IVC are patent.. .
--- NOTE | 2016-07-14 12:53 | NUR ---
CM CM IN TO VISIT PT. PT CONTINUES TO DENY NEEDS AT THIS TIME. PT IS AWARE TO CONTACT CM SHOULD NEEDS ARISE.
[2016-07-14 15:38] LABS: BLOOD, URINE 3+ (NEGATIVE); COLOR,URINE YELLOW (YELLOW); LEUKOCYTE ESTERASE ,URINE 3+ (NEGATIVE); NITRITE,URINE POSITIVE (NEGATIVE); UROBILINOGEN,URINE 0.2 EU/DL (NORMAL)
[2016-07-14 16:10] LABS: SQUAMOUS EPITHELIAL CELL,UR 0-5
[2016-07-14 16:11] LABS: WBC CLUMPS,URINE FEW; WBC,URINE 20-30 /HPF (0-5)
[2016-07-14 16:12] LABS: BACTERIA,URINE 2+ (NEGATIVE)
--- NOTE | 2016-07-14 19:00 | NUR ---
SHIFT SUMMARY PT ALERT AND ORIENTED X3. PT ON RA, DENIES SOA. DENIES N/V AT THIS TIME. PT REPORTS PAIN 09/29, PRN NORCO ADMINISTERED. UP WITH ASSIST X1, GAIT BELT, WALKER. AMBULATED IN HALLWAY WITH THERAPY X1, AMBULATED IN ROOM TO RESTROOM. MULTIPLE BMs THIS SHIFT. VU PATENT, ADEQUATE URINE OUTPUT. IVL RIGHT UPPER ARM MIDLINE PATENT, ABLE TO ASPIRATE. PT ABLE TO MAKE NEEDS KNOWN. BED ALARM ON, CALL LIGHT WITHIN REACH.
[2016-07-14] MEDS: CEPHALEXIN 250 MG CAPSULE PO SCH (22:08)
[2016-07-14] MEDS: MELATONIN 5 MG TABLET PO SCH (22:08)
[2016-07-14] MEDS: DONEPEZIL 5 MG TABLET PO SCH (22:09)
[2016-07-15] VITALS (7 sets, daily range): BP systolic 121–123; BP diastolic 52–54; PULSE 60–71; RESP 18; TEMP 97.4–97.5; O2SAT 86–97
--- NOTE | 2016-07-15 04:29 | NUR ---
Status Pt up with 1, GB, and walker. A/Ox3. Turned q2h during night. Chronic pain at 6-8/10. PRN [place] given as charted. Gave three hour break from thigh high PRAKASH hose in evening, but wore them otherwise. Denied SOA. On 2 L O2 via NC to keep SAO2 above 90% while sleeping. SAO2 above 90% on RA while awake. Pfeiffer patent and draining. Bed alarm on. Call light working and within reach. Will continue to monitor.
[2016-07-15 05:11] LABS: BASOPHILS % (AUTO) 0.2 % (0-2); EOSINOPHILS # (AUTO) 0.1 T/MM3 (0-0.5); EOSINOPHILS % (AUTO) 1.9 % (0-4); HCT - HEMATOCRIT 33.9 % (36-46); HGB - HEMOGLOBIN 10.5 GM/DL (12-16); IMMATURE GRANULOCYTE # (AUTO) 0.02 T/MM3 (0.00-0.03); IMMATURE GRANULOCYTE % (AUTO) 0.5 % (0.0-0.5); LYMPHOCYTES # (AUTO) 1.3 T/MM3 (1-4.8); LYMPHOCYTES % (AUTO) 30.4 % (23-45); MEAN CORPUSCULAR HGB 30.3 UUG (26-34); MEAN PLATELET VOLUME 12.4 UM3 (9.4-12.4); MONOCYTES # (AUTO) 0.4 T/MM3 (0-0.8); MONOCYTES % (AUTO) 9.9 % (0-9.0); NEUTROPHILS #(AUTO)-ABSOLUTE 2.4 T/MM3 (1.8-7.7); NEUTROPHILS % (AUTO) 57.1 % (33-66); RED BLOOD COUNT 3.46 M/MM3 (4.00-5.20); WBC - WHITE BLOOD COUNT 4.2 T/MM3 (4.5-11.0)
[2016-07-15 05:18] LABS: BUN/CREATININE RATIO 16 RATIO (6-26); CALCIUM 9.5 MG/DL (8.4-10.2); CHLORIDE 93 MEQ/L (98-107); GLOMERULAR FILTRATION RATE 53; GLUCOSE 94 MG/DL (65-110); POTASSIUM 3.4 MEQ/L (3.6-5); SODIUM 145 MEQ/L (134-144)
[2016-07-15 05:32] LABS: ANION GAP 12 MEQ/L (5-15); CO2 - CARBON DIOXIDE 40 MEQ/L (22-30)
[2016-07-15] MEDS: OMEPRAZOLE 20 MG CAPSULE PO SCH (05:53)
[2016-07-15] MEDS: LEVOTHYROXINE 112 MCG TABLET PO SCH (05:53)
[2016-07-15] MEDS ORDERED: REFRESH CLASSIC Eye Drops 0.4ml Dropperette BOTH EYES PRN (06:45)
[2016-07-15] MEDS: POTASSIUM CHLORIDE 20 MEQ TABLET PO SCH (08:27)
[2016-07-15] MEDS: PRAMIPEXOLE 1 MG TABLET PO SCH (08:28)
[2016-07-15] MEDS: DIVALPROEX 500 MG TABLET PO SCH (08:28)
[2016-07-15] MEDS: PredniSONE 5 MG TABLET PO SCH (08:28)
[2016-07-15] MEDS: MIRABEGRON 25 MG TABLET PO SCH (08:28)
[2016-07-15] MEDS: CEPHALEXIN 250 MG CAPSULE PO SCH ×2 (08:29→13:22)
[2016-07-15] MEDS: AMIODARONE 200 MG TABLET PO SCH (08:29)
[2016-07-15] MEDS: RIFAXIMIN 550 MG TABLET PO SCH (08:29)
[2016-07-15] MEDS: SERTRALINE 100 MG TABLET PO SCH (08:29)
[2016-07-15] MEDS: ATENOLOL 50 MG TABLET PO SCH (08:29)
--- NOTE | 2016-07-15 08:44 | NUR ---
Status Pt alert and oriented x3 this morning however is a little slow in her response as is her normal I believe. Attempting to wean pt off of oxygen as machinist 2nd shift reported she was on room air during the day yesterday but pt required 2L o2 during the night. Pt assisted with bath and sits in chair for breakfast. Pt reports having a poor appetite over the last while. Orders breakfast. Pt also reports chronic pain in her back and legs. PRN pain med given this morning by machinist 2nd shift RN. Will continue to monitor pt and need for pain medication.
[2016-07-15] MEDS ORDERED: BUMETANIDE 1 MG TABLET PO SCH (09:00)
--- NOTE | 2016-07-15 11:22 | NUR ---
CM CM IN TO VISIT WITH PT. DC PLANS ARE TO GO TO [facility] SKILLED. CM NOTIFIED MAXINE AT [facility]. CM NOTIFIED FAMILY TAMI DUNN OF ANTICIPATED DC.
[2016-07-15] MEDS ORDERED: POTASSIUM CHLORIDE 20 MEQ TABLET PO SCH ×2 (12:00→17:00)
[2016-07-15] MEDS ORDERED: CEPH250C2 PO (12:59)
[2016-07-15] MEDS ORDERED: BUME1TAB17 PO (12:59)
[2016-07-15] MEDS ORDERED: METO5TAB7 PO (12:59)
--- NOTE | 2016-07-15 14:21 | PDOCECFAO ---
Admission Orders Admission Orders Admit to: Snf Allergies: Coded Allergies: phenylbutazone (Verified Allergy, Mild, HIVES (BUTAZOLIDIN - MANU DISC), ) lansoprazole (Verified Adverse Reaction, Mild, DIARRHEA, 06/02/16) Admitting Diagnosis Edema,Anemia Admitting Physician Wanda Ortega MD Code Status Full Code Anticipated LOS: 30 days or less Rehab Potential: Fair Rehab Prognosis: Fair Diet: No Salt Added Wound/Incision Care: Not applicable May use Facility Protocol /SO: Yes May Have Flu Vaccine: Yes Evaluations/Treat: PT, OT Snf Certification I certify that SNF services are required to be given on an Inpatient basis because of the patients need for [facility] care on a continuing basis for the condition(s) for which he/she received inpatient hospital services prior to his/her transfer to the SNF. SNF inpatient care is necessary for the following reasons C/P Assessment/Care, Teach CHF Cardiac or Respiratory Arrest In Event of Arrest: Start CPR,call 911,to ER Resident is Aware of Diagnosis: Yes Additional Orders: CBC on 07/21-chronic blood loss anemia; BMP on 07/17 and 07/21-edema/CHF/hypokalemia. Daily weights, notify Dr. Taveras if weight increases by 3 pounds in 24 hours. Patient should see Dr. Taveras within 1 week. Resume prior activities. 2 L supplemental oxygen at night and as needed. Ambulate with assistance. WANDA ORTEGA MD Jul 15, 2016 14:20
--- NOTE | 2016-07-15 14:51 | NUR ---
REPORT REPORT CALLED TO BRANDAN AT [facility]. SHE DENIES FURTHER QUESTIONS AT THIS TIME.
--- NOTE | 2016-07-15 15:30 | NUR ---
STATUS PT SITS IN CHAIR WITH LEGS ELEVATED. O2 SAT 93% ROOM AIR. PT INTO BATHROOM TO VOID FREQUENTLY AND IS ALSO INCONTINENT OF LARGE AMOUNTS OF URINE. WILL CONTINUE TO MONITOR.
--- NOTE | 2016-07-15 15:34 | NUR ---
PT NOTE: Attempted to see pt this afternoon; pt reports she is leaving today and will leave shortly. No PT this pm
--- NOTE | 2016-07-15 15:41 | NUR ---
PAIN NORCO 10 i TAB PO GIVEN FOR C/O'S LEG PAIN. THIS INFORMATION IS ADDED TO INTERMEDIATE PACKET.
--- NOTE | 2016-07-15 15:55 | NUR ---
DISCHARGE MIDLINE D/C'D WITH CATHETER INTACT. [facility] HERE TO DATASTAGE ARCHITECT PT. PT GOES BY W/C TO THEIR TRANSPORTATION. PERSONAL BELONGINGS SENT WITH PT. PACKET CONTAINING DISCHARGE INSTRUCTIONS AND PRESCRIPTIONS SENT WITH LETTUCE CUTTER.
--- NOTE | 2016-07-15 20:51 | DSPDOC ---
General Date Date DATE: 07/15/16 TIME: 20:24 Attending Physician Wanda Ortega MD Admitting Physician Wanda Ortega MD Consulting Physician Admitting Diagnosis edema, anemia Discharge Diagnosis 1. Anasarca 2. Right-sided acute on chronic diastolic CHF 3. Pleural effusions 4. Anemia, probable chronic GI blood loss/chronic disease 5. Hypertension 6. Paroxysmal atrial fibrillation 7. Chronic kidney disease, stage III 8. Cirrhosis 9. Gram-negative UTI Procedures Echocardiogram on 07/11 demonstrated LVH with ejection fraction of 67% and grade 2/4 diastolic dysfunction. There is borderline left atrial enlargement and dilation of the right atrium and right ventricle. Pulmonary artery pressure moderately elevated at 41 mm. Mild to moderate tricuspid regurgitation and trace to mild regurgitation of remaining valves. Laboratory Laboratory Tests Test 07/14/16 15:29 07/15/16 04:18 Urine Collection Type Littlejohn indwelling Urine Color Yellow (YELLOW) Urine Turbidity Cloudy (CLEAR) Urine pH 7.0 (5.0-8.0) Urine Specific [place] 1.015 (1.015-1.025) Urine Protein Negative (NEGATIVE) Urine Glucose (UA) Negative (NEGATIVE) Urine Ketones Negative (NEGATIVE) Urine Blood 3+ (NEGATIVE) Urine Nitrite Positive (NEGATIVE) Urine Bilirubin Negative (NEGATIVE) Urine Urobilinogen 0.2EU/DL (NORMAL) Urine Leukocyte Esterase 3+ (NEGATIVE) Urine RBC 5-10/HPF (0-3) Urine WBC 20-30/HPF (0-5) Urine WBC Clumps Few Urine Squamous Epithelial Cells 0-5 Urine Bacteria 2+ (NEGATIVE) Urine Culture Indicated Cult reflexed &setup White Blood Count 4.2T/MM3 (4.5-11.0) Red Blood Count 3.46M/MM3 (4.00-5.20) Hemoglobin 10.5GM/DL (12-16) Hematocrit 33.9% (36-46) Mean Corpuscular Volume 98.0UM3 (80-100) Mean Corpuscular Hemoglobin 30.3UUG (26-34) Mean Corpuscular Hemoglobin Concent 31.0GM/DL (31-37) RDW Standard Deviation 65.3FL (36.9-50.2) Platelet Count 91T/MM3 (130-400) Mean Platelet Volume 12.4UM3 (9.4-12.4) Immature Granulocyte % (Auto) 0.5% (0.0-0.5) Neutrophils (%) (Auto) 57.1% (33-66) Lymphocytes (%) (Auto) 30.4% (23-45) Monocytes (%) (Auto) 9.9% (0-9.0) Eosinophils (%) (Auto) 1.9% (0-4) Basophils (%) (Auto) 0.2% (0-2) Absolute Immature Granulocyte (auto 0.02T/MM3 (0.00-0.03) Absolute Neutrophils (auto) 2.4T/MM3 (1.8-7.7) Absolute Lymphocytes (auto) 1.3T/MM3 (1-4.8) Absolute Monocytes (auto) 0.4T/MM3 (0-0.8) Absolute Eosinophils (auto) 0.1T/MM3 (0-0.5) Absolute Basophils (auto) 0.0T/MM3 (0-0.2) Turbidity < 20 (0-20) Sodium Level 145MEQ/L (134-144) Potassium Level 3.4MEQ/L (3.6-5) Chloride Level 93MEQ/L (98-107) Carbon Dioxide Level 40MEQ/L (22-30) Anion Gap 12MEQ/L (5-15) Blood Urea Nitrogen 16.0MG/DL (7-17) Creatinine 1.0MG/DL (0.7-1.2) Glomerular Filtration Rate Calc 53 BUN/Creatinine Ratio 16RATIO (6-26) Glucose Level 94MG/DL (65-110) Calculated Osmolality 280MOSM/KG (261-280) Calcium Level 9.5MG/DL (8.4-10.2) Icterus Index < 2 (0-7) Chemistry Specimen Hemolysis < 15 (0-25) On admission, (07/11) white count 4.4, hemoglobin 7.8 with MCV 97.9, and platelet count 86,000. Creatinine 0.9, AST 51 with remainder of liver enzymes within normal limits. Troponin 0.015, albumin 3.1 ProBNP 1720 on admission. Absolute reticulocyte count on 07/12 0.12, percent reticulocytes 4.5%, haptoglobin 4, LDH 614 (upper normal in [facility] lab), iron 325, TIBC 358, saturation 91% Bilirubin 1.6-all unconjugated on 07/13 following transfusion, liver enzymes otherwise notable only for AST of 45. Pathology review of hematology smear pending at discharge Microbiology Microbiology Date/Time Source Procedure Growth Status 07/14/16 16:12 Urine, Littlejohn Indwelling Urine Culture - >100,000 Gram Negative [place] Resulted Radiology Chest x-ray and admission demonstrated small pleural effusions bilaterally and central vascular congestion/mild pulmonary edema. Bilateral lower extremity venous Doppler on 07/11 was without evidence of DVT. Abdominal ultrasound with Doppler of the liver on 07/12 demonstrated gallbladder be surgically absent, liver to be diffusely echogenic with nodular contour and left lobe larger feet consistent with cirrhosis. Duplex Doppler ultrasound demonstrated appropriate portal flow, hepatic vein and IVC were patent. History of Present Illness Bhavna is well know to the hospitalist services as she was recently admitted on 06/30 for GI bleeding, anemia, Sepsis with UTI. She underwent a a colonoscopy by Dr Shah on 07/02. Colon polypectomy was performed and pathology reveled Grade 1 intramucosal adenocarcinoma. She was discharged on Thursday07/07/16 to [facility] for skilled rehabilitation. She is instructed to remain off anticoagulation until follow-up with primary care provider, Sadie Taveras. Today she presents to the emergency room for reevaluation of increased edema. Further evaluation including laboratory studies and x-rays were obtained. Hemoglobin was found to be down to 7.8, hematocrit 27.6, white count 4.4, RBCs 2.82. Platelet count is 86. Sodium is elevated 145, potassium 4.3, BUN 16, creatinine 0.9, glucose 147. Troponin 0.015, proBNP 1720. She is afebrile at 96.6, pulse 70, respiration rate 18, blood pressure 136/68. She is saturating on room air at 96%. Chest x-ray did reveal new small pleural effusions with findings of mild pulmonary edema. She reports that over the past 2-3 days her swelling has significant worsening not only in her bilateral lower ext, but up into her abdomen. She reports feeling more short of breath and having some chest pain with shortness of breath that is intermittent, and worse with exertion. Denies fever or chills. No GI complaints. Given these acute changes and significant anasarca, new pleural effusions and anemia. The hospitalist services were contacted and accepted patient for outpatient admission for further evaluation and treatment. Hospital Course Admit patient to outpatient observation under care of Dr. Ortega for anasarca , pleural effusion, anemia Monitor on cardiac telemetry. Given episodes of chest pain, we will obtain serial troponin 3. Given anemia will type and screen patient as she may require blood transfusion. During recent hospitalization she did receive 3 units of packed red blood cells. She has known chronic thrombocytopenia with baseline Plt 80-90's. Chronic anticoagulation has been on hold since previous admission on 06/30. She had been taking Eliquis for chronic A. fib. Will place littlejohn cath for strict I/O. IV Bumex initiated for diuresis. Will obtain a venous duplex of LLE to rule out acute DVT and abdominal ultrasound with Doppler to exclude portal thrombosis since edema extends to abdominal wall. 07/12/16 More aggressive diuresis today with albumin support; will give 25 g BID and bumex 2 mg IV after dosing PRBC transfusion today given symptomatic at presentation with intermittent chest pressure/dyspnea and Hb <8 with known CAD Follow results of abdominal ultrasound to ensure no PV thrombus or other intra- abdominal causes of acute decompensation from a volume standpoint. Low salt diet, not restricting salt outside of the hospital and this could have caused decompensation as well. TTE with diastolic dysfunction and increased right-sided pressures with dilated RA RV. Check Fe saturations again as she has had IV iron/PRBC since last check (low serum iron during last admission). Check haptoglobin, LDH, retic count to look for alternate causes of worsening anemia(hemoglobin on 07/09- 8.4, readmission hemoglobin 7.8). Will obtain records from [facility] to evaluate further situation with her liver ; has last see Dr. Cade 1 year ago. Continue to hold osphena (SERM) due to increased risk of thrombosis. SCDs for DVT prophylaxis, continue off eliquis and avoid blood thinning medications acutely. Strict I/Os and daily weights while inpatient. Additional dose of diuretic after PRBC today if responding. 07/13/16 Continue aggressive diuresis today without further albumin support; will give bumex 2 mg IV BID + metolazone 5 mg daily. Monitor Na levels, may need to relax free water restriction if increasing again tomorrow (148 today). Monitor Hb daily, given evidence of hemolysis will check peripheral smear. If abnormalities found will plan to involve Dr. Martínez for further evaluation. Follow results of abdominal ultrasound to ensure no PV thrombus or other intra- abdominal causes of acute decompensation from a volume standpoint--> pending. Low salt diet, not restricting salt outside of the hospital and this likely contributed to edema and acute decompensation. TTE ordered read by Dr. Chambers, reviewed with no significant changes from previous. Continue littlejohn catheter while diuresing. Check Fe saturations again as she has had IV iron/PRBC since last check ( pending currently, drawn prior to PRBC given). Reticulocyte count appropriately elevated, haptoglobin low and LDH high as noted above. Continue to hold osphena (SERM) due to increased risk of thrombosis. SCDs for DVT prophylaxis, continue off eliquis and avoid blood thinning medications acutely. Strict I/Os and daily weights while inpatient. 07/14/16 Continue to work on diuresing with IV Bumex BID and Metolazone daily. Weight continues to trend down. Low salt diet. Monitor intake and output closely Iron studies were elevated. Discontinued iron supplementation. Continue with potassium 40 milliequivalents in the morning. Will add 20 milliequivalents at supper for potassium supplementation. Continue to follow hemoglobin closely. She has received 2 units of packed red blood cells this admission. Work on weaning down oxygen as able. Currently requiring 1 liter of by nasal cannula. Trend CO2 as it is elevated at 42. 07/15/16-discharge Overall Mrs. Liu reports feeling improved from admission with decreased edema and improvement in dyspnea although exercise tolerance is very poor. Today she complains of urinary frequency following removal of Littlejohn catheter and indicates she voided 4 times in 1 hour after morning dose Bumex. Respirations are nonlabored with decreased breath sounds throughout but clear breath sounds and no wheezing. There is no abdominal wall edema at this time and only trace edema at the ankles. Potassium was 3.4 this morning, additional dose given prior to discharge. Hemoglobin remained steady since transfusion several days ago. Pathology review of smear pending. Haptoglobin low with normal bilirubin and LDH prior to transfusion, bilirubin increased posttransfusion. Patient to follow-up with Dr. Martínez if anemia continues to worsen, suspect low haptoglobin reflex hemolysis of recently transfused blood. Continues to require 1 L supplemental oxygen and did so overnight. Obdulio Mccracken notified that supplemental oxygen will be needed on patient's return to senior living today. Urine culture growing gram-negative organism, identification and sensitivities pending. Treatment with Keflex initiated 07/14 and continued at discharge. Discharge weight 90.7 kg. Diuresed 8.5 kg during hospitalization. Continue Bumex at 2 mg daily with addition of metolazone 2.5 mg 3 days a week, titrate as needed to maintain fluid balance. BMP to be rechecked in 2 days in early next week, CBC will be repeated early next week to monitor stability of hemoglobin. Patient stable to return to senior living to resume strengthening at [place]. She is to follow-up with Dr. Taveras within 1 week and with multiple consultants as previously scheduled or as needed arises. >30 minutes spent on patient care and discharge care coordination today on the date of discharge. -- Problems: (1) Anasarca Status: Acute Assessment & Plan: Present on admission (2) Pleural effusion Status: Acute (3) Edema Status: Acute (4) Adenocarcinoma Status: Acute Assessment & Plan: Found on polypectomy-07/02/16 (5) Leg erythema Status: Acute Assessment & Plan: Present on admission, left lower extremity erythema and warmth, improved today (6) Right-sided congestive heart failure Status: Chronic Assessment & Plan: Acute on chronic diastolic heart failure (7) HTN (hypertension) Status: Chronic (8) Paroxysmal atrial fibrillation Status: Chronic (9) Anemia of chronic disease Status: Chronic Assessment & Plan: Acute on chronic, has chronic pancytopenia but now requiring ongoing transfusions to keep Hb stable over time. Labs concerning for subacute hemolysis as well with LDH >600 (was >700 in the recent past) and haptoglobin 4 (drawn prior to transfusion on 07/12). (10) CKD (chronic kidney disease), stage III Status: Chronic Assessment & Plan: Recent BL creatinine improved to 1.0 (11) Invasive ductal carcinoma of breast, stage 2 Onset Date: ~ 2006 Status: Chronic (12) Thrombocythemia Status: Chronic Assessment & Plan: Platelet count on admission 86 (13) GERD (gastroesophageal reflux disease) Status: Chronic (14) History of recent hospitalization Status: Chronic Assessment & Plan: Discharged 07/07/16 after evaluation for symptomatic anemia (15) Hypothyroidism Status: Chronic (16) Osteoarthritis Status: Chronic (17) Depression Status: Chronic (18) UTI (urinary tract infection) Status: Acute Code Status Full Code Home Meds Active Scripts Metolazone (Metolazone) 5 Mg Tablet, 2.5 MG PO MoWeFr@09 for EDEMA, #15 TAB Prov:WANDA ORTEGA MD 07/15/16 Cephalexin (Cephalexin) 250 Mg Capsule, 250 MG PO QID for UTI for 4 Days, #16 CAP Prov:WANDA ORTEGA MD 07/15/16 Bumetanide (Bumetanide) 1 Mg Tablet, 2 MG PO DAILY for EDEMA, #60 1 Refill Prov:WANDA ORTEGA MD 07/15/16 Hydrocodone/Acetaminophen ([place] 10-325 Tablet) 1 Each Tablet, 1 TAB PO Q6H Y for PRN ORDERS, #30 TAB Prov:DARRICK GLEASON APRN 07/07/16 Reported Medications Potassium Chloride (Potassium Chloride) 20 Meq Tablet.er, 20 MEQ PO HS 07/11/16 Potassium Chloride (Potassium Chloride) 20 Meq Tablet.er, 40 MEQ PO WB 07/11/16 Ospemifene (Osphena) 60 Mg Tablet, 60 MG PO DAILY 07/11/16 Omeprazole (Omeprazole) 20 Mg Tablet.dr, 20 MG PO BID 07/11/16 Amiodarone HCl (Amiodarone HCl) 200 Mg Tablet, 200 MG PO DAILY 07/11/16 Melatonin (Melatonin) 3 Mg Tablet, 5-10 MG PO HS Y for SLEEP 06/30/16 Mirabegron (Myrbetriq) 25 Mg Tab.er.24h, 25 MG PO DAILY, TAB 06/30/16 Prednisone (Prednisone) 5 Mg Tablet, 7.5 MG PO WB 06/30/16 Atenolol (Atenolol) 50 Mg Tablet, 50 MG PO DAILY 06/30/16 Donepezil HCl (Donepezil HCl) 5 Mg Tablet, 5 MG PO HS 06/01/16 Rifaximin (Xifaxan) 550 Mg Tablet, 550 MG PO BID, TAB 06/01/16 Polyethylene Glycol 3350 (Miralax) 17 Gm Powd.pack, 1 PACKET PO DAILY Y for CONSTIPATION 06/01/16 Levothyroxine Sodium (Levothyroxine Sodium) 112 Mcg Tablet, 112 MCG PO ACB 4/14/16 Calcium Carbonate/Vitamin D3 (Calcium 600 + Vit D Caplet) 1 Each Tablet, 1 TAB PO DAILY 10/16/14 Pramipexole Di-HCl (Mirapex) 1 Mg Tablet, 1 MG PO DAILY 04/19/14 Divalproex Sodium (Divalproex Sodium) 500 Mg Tablet.dr, 500 MG PO DAILY 11/23/13 Sertraline Hcl (Zoloft) 100 Mg Tablet, 100 MG PO DAILY 09/27/09 Discontinued Reported Medications Acetaminophen (Tylenol) 325 Mg Tablet, 1-2 TAB PO PRN 06/30/16 Face to Face Encounter I met with patient on the day of dismissal and discussed follow up appointments , medications, and safety plan. Discharge Disposition [facility] nursing Copies To 1: WILLIE MARTÍNEZ MD; SUSY SHAH MD, FACS, CWS; SADIE TAVERAS DO Documentation Requirements CHF Type and Acuity Type of CHF: Diastolic Acuity CHF: Acute on Chronic Chronic Kidney Disease Stage of CKD: Stage 3 GFR 30-59 Anemia Anemia Acuity: Acute on Chronic WANDA ORTEGA MD Jul 15, 2016 20:27
[2016-07-16] MEDS ORDERED: METOLAZONE 5 MG TABLET PO SCH (09:00)
== END 2016-07-15 15:55 | DRG 811 ==
LOC: ED 14:39 → EDHOLD 17:09 → MED 17:27 → OBSVTOIN 07-12 10:17
PROVIDERS: ADMIT Internal Medicine; ATTEND Internal Medicine
PROC: 30233N1 Transfusion of Nonautologous Red Blood Cells into Peripheral Vein, Percutaneous Approach (ICD-10-PCS; principal; 2016-07-12)
PROC: 3E0234Z Introduction of Serum, Toxoid and Vaccine into Muscle, Percutaneous Approach (ICD-10-PCS; 2016-07-12)
DX: D50.0 Iron deficiency anemia secondary to blood loss (chronic) (principal); I50.33 Acute on chronic diastolic (congestive) heart failure; J90 Pleural effusion, not elsewhere classified; C18.9 Malignant neoplasm of colon, unspecified; I13.0 Hypertensive heart and chronic kidney disease with heart failure and stage 1 through stage 4 chronic kidney disease, or unspecified chronic kidney disease; N39.0 Urinary tract infection, site not specified; N18.3 Chronic kidney disease, stage 3 (moderate); R60.1 Generalized edema; I48.0 Paroxysmal atrial fibrillation; F32.9 Major depressive disorder, single episode, unspecified; M19.90 Unspecified osteoarthritis, unspecified site; K21.9 Gastro-esophageal reflux disease without esophagitis; D69.6 Thrombocytopenia, unspecified; I80.8 Phlebitis and thrombophlebitis of other sites; D63.8 Anemia in other chronic diseases classified elsewhere; E03.9 Hypothyroidism, unspecified; I25.10 Atherosclerotic heart disease of native coronary artery without angina pectoris; K74.60 Unspecified cirrhosis of liver; Z79.01 Long term (current) use of anticoagulants; Z95.0 Presence of cardiac pacemaker; Z85.3 Personal history of malignant neoplasm of breast; Z23 Encounter for immunization
CPT/HCPCS: 36415; 80048; 80053; 80069; 80076; 81001; 82248; 83010; 83540; 83550; 83615; 83880; 84484; 85018; 85025; 85027; 85045; 85610; 86850; 86860; 86870; 86880; 86885; 86900; 86901; 86902; 86922; 87077; 87086; 87186; 93005; 93306; 99218

== ENCOUNTER 2016-08-03 19:08 | Emergency (ER) | payer MEDICARE, BC ==
[~2016-08-03] VITALS: Ht 162.6 cm; Wt 81.9 kg
[~2016-08-03 19:08] MED LIST changes: -ACET-2321 PO; -BUME0.5T11 PO; +BUME1TAB17 PO; +CEPH250C2 PO; +METO5TAB7 PO; +OMEP-122 PO; -OMEP20CA4 PO; +POTA-81 PO; -POTA10CA37 PO
--- OUTSIDE RECORDS SUMMARY | 2016-08-03 19:13 | XMS REPORT | Continuity of Care Document ---
Author Author [facility] Organization [facility] Address Unknown Phone Unavailable Support Name Relationship Address Phone TERRY MALHOTRA MD Caregiver [address] [place] [address] Ext [phone] MYLENE GARCIA MD Caregiver [address] [place] [address] [place], [place] [phone] TAMI LIU DPOA Next Of Kin [address] [place], [place] [id number] Insurance Providers Payer Name Policy Number Subscriber Name Relationship Medicare [id number] Andie Liu 19 Self [facility] Other [id number] Andie Liu 19 Self [facility] [id number] Andie Liu 19 Self Advance Directives Directive Response Recorded Date/Time Ordered Resuscitation Status Full Code 04/19/14 7:30am Resuscitation Documents on File No 04/19/14 9:20am Chief Complaint and Reason for Visit Chief Complaint General Reason for Visit [id number] Gastroenteritis Hypokalemia Problems Medical Problems Problem Onset [...] 02/04/14 1:09pm Disposition 02 [place] [facility] [place] Stable Instructions/Education Provided [...] F (96.8 - 99.1) Temperature (Calculated Celsius) 35.81484 degrees C (36.0 - 37.3) Temperature Source [...] March 20, 2009 3:14pm Complete - FAX [phone] Eosinophils # (Auto) February 04, 2014 6:18am [...] 08, 2013 7:36pm LAB TEST FORM REQUEST [id number] - Lactate Dehydrogenase March 20, 2009 3:15pm [...] 04, 2014 6:18am 10.2 % H 0-9.0 EO-Qdj-V-Type Natriuretic Peptide December 02, 2013 3:55pm 1720 [...] 20, 2009 2:45pm Not done - PLEASE 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 Y Urine Specific [place] February 02, 2014 4:11pm 1.020 - Has [...] 2012 7:06pm Name: ANDIE LIU Unit #: [id number] : 1935 Sex: F Loc / Svc: SRG DOS: 04/19/14 Signed Report #: [id number] DIAGNOSTIC IMAGING REPORT TYPE OF EXAM: CT [...] mild central canal narrowing. Severe right and [id number] left neural foraminal stenosis L2-L3: Posterior decompression. [...] 02/08/14 Encounters Encounter Location Date/Time Departed Clinic [facility] 04/19/14 8:56am Registered Clinic [facility] 02/08/14 8:34am Discharged Inpatient [facility] 02/03/14 6:28pm
--- OUTSIDE RECORDS SUMMARY | 2016-08-03 19:13 | XMS REPORT | Continuity of Care Document ---
Author Author [facility] Organization [facility] Address Unknown Phone Unavailable Support Name Relationship Address Phone TAMI LIU Next Of Kin [address] [place] [address] Unavailable Insurance Providers Payer Name Policy Number Subscriber Name Relationship [facility] [id number] Andei Liu Self Medicare [id number] Andie Liu Self [facility] Other [id number] Andie Liu Self Problems No Known Problems [...] Congestive Heart Failure N HAS BEEN DEBATED, "RESTAURANT SHIFT SUPERVISOR SAYS NO" 7:00pm Hx Heart Attack N [...] Summary. Procedures Procedure Code Date PARTICAL MASTECTOMY 31321 08/31/08 BIOPSY/REMOVAL LYMPH NODES 94537 08/31/08 RA TRACER ID OF SENTINL NODE [id number] 08/31/08 PACKED CELL TRANSFUSION 99.04 04/24/09 INCISION OF NOSE 21.1 10/14/11 REPAIR OF NASAL SEPTUM 20325 02/06/12 THER FX NASAL INF TURBINATE 91916 02/06/12 [id number] CANCER SCREENING; COLONOSCOPY ON INDIVIDUAL G0121 06/04/12 MUSCULOSKELETAL SURGERY 38362 07/11/13 Blood Culture 10/13/11 Eye/Ear/Nose/Throat Culture 10/13/11 Encounters Encounter Location Date/Time Departed Emergency Room [facility] 11/08/12 6:53pm Discharged Inpatient [facility] 10/13/11 4:58pm
--- OUTSIDE RECORDS SUMMARY | 2016-08-03 19:13 | XMS REPORT | Continuity of Care Document ---
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 Type Provider Facility Loc./Unit Complaint [id number] 10/10/2015 15:15:00 2015 15:15:00 CAN Outpatient Alyssia DOWNING, [facility] W.RODGER [id number] 10/05/2015 12:15:00 2015 16:35:00 DIS Outpatient Alyssia DOWNING, [facility] W.JOHANNE [id number] 09/21/2014 05:06:00 2014 14:16:00 DIS Inpatient Juaquin DOWNING, [facility] W.9TN [id number] 09/14/2014 10:34:00 2014 10:34:00 DIS Outpatient Juaquin DOWNING, [facility] W.POA [id number] 09/11/2015 10:30:00 PEN Outpatient Alyssia DOWNING, [facility] W.END [id number] 08/31/2015 05:31:00 Document Registration
[2016-08-03 19:14] VITALS: Ht 162.6 cm; Wt 81.9 kg
--- OUTSIDE RECORDS SUMMARY | 2016-08-03 19:15 | XMS REPORT | Continuity of Care Document ---
Author Author [facility] Organization [facility] Address Unknown Phone Unavailable Support Name Relationship Address Phone KURTIS FOOTE MD Caregiver [address] [place] [address] Unavailable KURTIS FOOTE MD Caregiver [address] [place] [address] Unavailable JENNIFER FRENCH DO Caregiver [address] [place] [address] Unavailable RONALD TAVERAS DO Caregiver [address] [place] [address] Unavailable TAMI LIU DPOA Next Of Kin [address] [place] [address] C Insurance Providers Guarantor Bhavna Liu Address [address] [address] Email [email or web address] [facility] Policy Number [id number] Subscriber's Name Bhavna Liu Relationship 18 Self Group Number [id number] Payer [facility] [employer] Policy Number [id number] Subscriber's Name Bhavna Liu Relationship 18 Self Group Number [id number] Advance Directives Directive Response Recorded Date/Time Advanced Directives Type None 07/11/16 2:40pm Ordered Resuscitation Status Full Code 07/11/16 5:09pm Resuscitation Documents on File Yes 07/11/16 5:51pm DPOA for Healthcare Only Y TAMI LIU 07/11/16 5:51pm Living Will Yes 07/11/16 5:51pm Problems Active Problems Medical Problem Onset Date Status Acute encephalopathy Unknown Acute Acute kidney injury 11/25/2013 Acute Acute kidney injury Unknown Acute Adenocarcinoma Unknown Acute Anasarca Unknown Acute Anemia Unknown Acute Anemia Unknown Acute Anemia of chronic disease Unknown Chronic Anticoagulant long-term use Unknown Anticoagulated Unknown Chronic Aortic valve sclerosis Unknown Ascites Unknown Acute Back pain Unknown CHF following non-cardiac surgery, postop Unknown Chronic CKD (chronic kidney disease), stage III Unknown Chronic Chronic back pain Unknown Chronic Cirrhosis Unknown Chronic Constipation Unknown Acute Dehydration Unknown Acute Depression Unknown Chronic Diarrhea Unknown Acute GERD (gastroesophageal reflux disease) Unknown Chronic Gastroenteritis 02/04/2014 Acute Gastroenteritis Unknown Acute Generalized weakness Unknown Acute HTN (hypertension) Unknown Chronic History of echocardiogram ~2015 History of recent hospitalization Unknown Chronic Hyperkalemia Unknown Resolved Hypokalemia Unknown Acute Hypotension Unknown Acute Hypothyroidism Unknown Chronic Invasive ductal carcinoma of breast, stage 2 ~2006 Chronic Knee pain, chronic Unknown Leg erythema Unknown Acute Liver disease Unknown MRSA (methicillin resistant Staphylococcus aureus) Unknown Chronic Mild aortic regurgitation Unknown Obesity (BMI 30.0-34.9) Unknown Chronic Osteoarthritis Unknown Chronic Paroxysmal atrial fibrillation Unknown Chronic Pleural effusion Unknown Acute Right-sided congestive heart failure Unknown Chronic Sepsis Unknown Resolved Steroid long-term use Unknown Chronic Superficial thrombophlebitis Unknown Acute Thrombocythemia Unknown Chronic UTI (lower urinary tract infection) Unknown Acute Past Problems Medical Problem Onset Date Acute blood loss anemia Unknown Edema Unknown Post-op bleeding Unknown Posterior epistaxis Unknown UTI (urinary tract infection) Unknown Medications Current Home Medications Medication Dose Units Route Directions Days Qty Instructions Start Date Amiodarone Hcl 200 Mg Tablet 200 Mg Oral Daily 07/11/16 Atenolol 50 Mg Tablet 50 Mg Oral Daily 06/30/16 Bumetanide 1 Mg Tablet 2 Mg Oral Daily for Edema 60 07/15/16 Calcium Carbonate/Vitamin D3 (Calcium 600 + Vit D Caplet) 1 Each Tablet 1 Tab Oral Daily 10/16/14 Cephalexin 250 Mg Capsule 250 Mg Oral Four Times Daily for Uti 4 Days 16 Capsule 07/15/16 Divalproex Sodium 500 Mg Tablet.dr 500 Mg Oral Daily 11/23/13 Donepezil Hcl 5 Mg Tablet 5 Mg Oral Bedtime 06/01/16 Hydrocodone/Acetaminophen ([place] 10-325 Tablet) 1 Each Tablet 1 Tab Oral Every 6 Hours as needed for Prn Orders 30 Tablet 07/07/16 Levothyroxine Sodium 112 Mcg Tablet 112 Mcg Oral Before Breakfast 07/05/15 Melatonin 3 Mg Tablet 5-10 Mg Oral Bedtime as needed for Sleep Metolazone 5 Mg Tablet 2.5 Mg Oral Mowefr@09 for Edema 15 Tablet Mirabegron (Myrbetriq) 25 Mg Tab.er.24h 25 Mg Oral Daily 06/30/16 Omeprazole 20 Mg Tablet.dr 20 Mg Oral Twice A Day 07/11/16 Ospemifene (Osphena) 60 Mg Tablet 60 Mg Oral Daily 07/11/16 Polyethylene Glycol 3350 (Miralax) 17 Gm Powd.pack 1 Packet Oral Daily as needed for Constipation 06/01/16 Potassium Chloride 20 Meq Tablet.er 40 Meq Oral Give With Breakfast 07/11/16 Potassium Chloride 20 Meq Tablet.er 20 Meq Oral Bedtime 07/11/16 Pramipexole Di-Hcl (Mirapex) 1 Mg Tablet 1 Mg Oral Daily 04/19/14 Prednisone 5 Mg Tablet 7.5 Mg Oral Give With Breakfast 06/30/16 Rifaximin (Xifaxan) 550 Mg Tablet 550 Mg Oral Twice A Day Sertraline Hcl (Zoloft) 100 Mg Tablet 100 Mg Oral Daily 09/27/09 Past Home Medications Medication Directions Ordered Status Acetaminophen (Tylenol) 325 Mg Tablet, 1-2 Tab Oral As Needed 06/30/16 Discontinued Acetaminophen 325 Mg Tablet, 2 Tab Oral [...] Tablet, 40 Mg Oral Daily 09/27/09 Discontinued Bumetanide 1 Mg Tablet, 1 Mg Oral Twice A Day 07/11/16 Discontinued Cholecalciferol (Vitamin D3) (Vitamin D) 400 Unit Tablet, Unknown Dose Oral Twice A Day 02/02/14 Discontinued Clotrimazole 10 Mg Jac, 10 Mg Oral 5 Times Daily 07/09/15 Discontinued Ferrous Sulfate (Iron) 325 ( Tablet, 325 ( Oral Twice A Day 04/20/09 Discontinued Fexofenadine Hcl 180 Mg Tablet, 180 Mg Oral As Needed 09/27/09 Discontinued Hydrocodone/Acetaminophen ([place] 10-325 Tablet) 1 Each Tablet, 1 Tab Oral Every 6 Hours as needed for Prn Orders 07/09/15 Discontinued Hydrocodone/Acetaminophen ([place] 10-325 Tablet) 1 Each Tablet, 1 Tab [...] Discontinued Triamcinolone Acetonide (Nasacort Aq) 16.5 Gm [place], 2 Sprays Nasal Daily 18/01 Discontinued Social History Social History Problem Response Recorded Date/Time Onset Date Status Reason for Hospitalization edema, right sided CHF 07/15/2016 2:28pm Not Applicable Not Applicable Chewing Tobacco Status No 11/11/2012 5:10pm Not Applicable Not Applicable Hx Substance Use No 07/11/2016 3:01pm Not Applicable Not Applicable Hx Alcohol Use No 07/11/2016 3:01pm Not Applicable Not Applicable Has the pt used tobacco in the last 12 months No 07/11/2016 5:53pm Not Applicable Not Applicable Tobacco Usage none 07/06/2015 1:05pm Not Applicable Not Applicable Query Response Start Date Stop Date Smoking Status Never smoker Hospital Discharge Instructions Instructions: Care Instructions: Reason for Hospitalization: edema, right sided CHF I was in the hospital because (patient own words): FLUID RETENTION Discharge Diet: low-salt Discharge Activity: As tolerates with physical therapy Follow Up Appointments: Dr. Taveras one week; Dr. Pimentel and Dr. Zuniga as previously scheduled Pending Lab / Results: Follow up w/ your PCP Patient Instructions: Take Bumex 2 mg once daily. Metolazone added 2.5 mg on Thursday, Thursday, and Thursday to help control fluid. Continue potassium, level will need to be checked with change in diuretics later this week. Final results of urine culture are pending, antibiotics initiated yesterday based on preliminary results. Wound/Incision Care: Not applicable Durable Medical Equipment: Oxygen as needed-will be monitored at [facility] Pain Management/Treatment: [place] one tablet 4 times a day as needed Expected Signs/Symptoms: Shortness of breath with activities Notify Physician If: Increasing weight or increasing swelling in the legs or abdomen During Business Hours:: Please call the physician's office at After Business Hours:: Please call [phone] and have the catalyst operator gasoline page the physician. Condition at time of discharge: Good Plan of Care Discharge Date 07/15/16 3:55pm Disposition 03 TO [facility] NOT [facility] (S[facility]) Instructions/Education Provided [facility] Congestive Heart Failure Anemia (DC) Edema (DC) Prescriptions See Medication Section Care Plan and Goals See Discharge Instructions Section Functional Status Query Response Date Recorded Mobility Status Ambulatory w/assist July 15, 2016 2:28pm Assistive Devices Standard Walker July 15, 2016 2:28pm Activity Limitations Weakness Fatigue Shortness of breath Pain July 15, 2016 2:28pm Feeding Ability Independent July 15, 2016 2:28pm Toileting Ability Independent July 15, 2016 2:28pm Grooming Ability Independent July 15, 2016 2:28pm Dressing Ability Independent July 15, 2016 2:28pm Driving Ability Dependent July 15, 2016 2:28pm Housework Ability Assist July 15, 2016 2:28pm Meal Preparation Ability Assist July 15, 2016 2:28pm Stair Climbing Ability Assist July 15, 2016 2:28pm Ability to complete ADL's impeded by No change July 15, 2016 2:28pm Cognitive/Perceptual Impairments Impaired vision July 15, 2016 2:28pm Visual Assistive Devices Glasses With patient July 14, 2016 5:46pm Allergies, Adverse Reactions, Alerts Allergen Type Severity Reaction Status Last Updated Phenylbutazone Allergy Mild HIVES (BUTAZOLIDIN - MANU DISC) Active Lansoprazole Adverse Reaction Mild DIARRHEA Active 06/02/16 Immunizations Immunization Event Date Type Not Given Reason Dose Number Lot Number Hvac/R Instructor VIS Given Pneumococcal conjugate PCV 13 07/12/16 Administered 1 [id number] Pfizer Query Response on File Recorded Date/Time Hx Influenza Vaccination Y fall 201507/11/16 5:53pm Hx Pneumococcal Vaccination Y 02/201507/11/16 5:53pm Hx Influenza Vaccination Y fall 201507/11/16 5:53pm Influenza Vaccine Hx jan 2016 07/12/16 2:33pm Tdap Vaccine Hx UNKNOWN 02/14/16 9:26am Vital Signs Acute Vital Signs Vital Response Date/Time Temperature (Fahrenheit) 97.5 deg F (96.8 - 99.1) 07/15/2016 8:26am Temperature (Calculated Celsius) 36.85652 degrees C (36.0 - 37.3) 07/15/2016 8:26am Pulse Rate (adult) 71 bpm (60 - 100) 07/15/2016 8:26am Respiratory Rate 18 breaths/min (10 - 20) 07/15/2016 8:26am O2 Sat by Pulse Oximetry 92 % (90 - 100) 07/15/2016 1:55pm Oxygen Delivery Method Nasal Cannula 07/14/2016 7:37pm Oxygen Delivery Method Room Air 07/15/2016 1:55pm Oxygen Flow Rate 1.00 L/min 07/15/2016 8:41am Blood Pressure 123/52 mm Hg 07/15/2016 8:26am Blood Pressure Source Automatic Cuff 07/15/2016 8:26am Height (Feet) 5 feet 07/14/2016 11:04am Height (Inches) 3.00 inches 07/14/2016 11:04am Weight (Kilograms) 90.700 kg 07/15/2016 7:47am Body Mass Index (BMI) 38.7 07/11/2016 5:49pm Results Laboratory Results Test Name Result Units Flags Reference Collection Date/Time Result Date/ Time Comments Vitamin B12 Level 798 PG/ML [id number] 05/28/2016 6:00am 05/30/2016 3: 21am Folate 5.6 NG/ML 2.76-20 05/28/2016 6:00am 05/30/2016 3:21am NORMAL ADULT RANGE: 2.76->20 ng/mL Neutrophils % (Manual) 66.0 % 33-66 07/02/2016 4:07/02/2016 5: 56am Lymphocytes % (Manual) 26.0 % 23-45 07/02/2016 4:07/02/2016 5: 56am Monocytes % (Manual) 8.0 % 0-9.0 07/02/2016 4:07/02/2016 5:56am Absolute Neutrophils (Manual) 2.8 T/MM3 1.8-7.7 07/02/2016 4:07/02 5:56am Lymphocytes # (Manual) 1.1 T/MM3 1-4.8 07/02/2016 4:07/02/2016 5: 56am Monocytes # (Manual) 0.3 T/MM3 0-0.8 07/02/2016 4:07/02/2016 5: 56am Red Cell Morphology Comment ABNORMAL 07/02/2016 4:07/02/2016 5 :56am Anisocytosis 1+ 07/02/2016 4:07/02/2016 5:56am Poikilocytosis 1+ 07/02/2016 4:07/02/2016 5:56am Activated Partial Thromboplast Time 31.1 SEC 24-36 06/30/2016 7:28am 11:39am D-Dimer 870 NG/ML H 0-230 06/30/2016 7:37am 06/30/2016 8:33am <230 NG/ ML D-DU=PRESUMPTIVE NEGATIVE FOR PE OR DVT >230 NG/ML D-DU=ADDITIONAL EVAL FOR PE OR DVT RECOMMENDED Lipase 82 U/L 23-300 06/30/2016 7:37am 06/30/2016 [...] - sepsis or septic shock highly indicated. Thyroid Stimulating Hormone (TSH) 10.80 MIU/L H [...] NASAL CANNULA,LITERS 07/02/2016 2:05pm 07/02/2016 2:14pm Urine Transitional Epithelial Cells 0-1 /HPF 07/05/2016 6:39pm 2016 6:57pm Urine Hyaline Casts 1-3 /LPF 07/05/2016 6:39pm 07/05/2016 6:57pm Carcinoembryonic Antigen 3.62 UG/L H 0-3.0 07/09/2016 7:15am 07/09/2016 8:34am CA 27.29 27.72 U/ML 0-37.7 07/09/2016 7:1507/09/2016 9:04am White Blood Count 4.2 T/MM3 L 4.5-11.0 07/15/2016 4:1807/15/2016 5: 11am Red Blood Count 3.46 M/MM3 L 4.00-5.20 07/15/2016 4:1807/15/2016 5: 11am Hemoglobin 10.5 GM/DL L 12-16 07/15/2016 4:1807/15/2016 5:11am Hematocrit 33.9 % L 36-46 07/15/2016 4:1807/15/2016 5:11am Mean Corpuscular Volume 98.0 UM3 80-100 07/15/2016 4:1807/15/2016 5: 11am Mean Corpuscular Hemoglobin 30.3 UUG 26-34 07/15/2016 4:182016 5:11am Mean Corpuscular Hemoglobin Concent 31.0 GM/DL 31-37 07/15/2016 4:1807/15/2016 5:11am RDW Standard Deviation 65.3 FL H 36.9-50.2 07/15/2016 4:1807/15/2016 5:11am Platelet Count 91 T/MM3 L 130-400 07/15/2016 4:1807/15/2016 5:11am Mean Platelet Volume 12.4 UM3 9.4-12.4 07/15/2016 4:1807/15/2016 5: 11am Neutrophils (%) (Auto) 57.1 % 33-66 07/15/2016 4:1807/15/2016 5: 11am Lymphocytes (%) (Auto) 30.4 % 23-45 07/15/2016 4:07/15/2016 5: 11am Monocytes (%) (Auto) 9.9 % H 0-9.0 07/15/2016 4:1807/15/2016 5:11am Eosinophils (%) (Auto) 1.9 % 0-4 07/15/2016 4:1807/15/2016 5:11am Basophils (%) (Auto) 0.2 % 0-2 07/15/2016 4:1807/15/2016 5:11am Immature Granulocyte % (Auto) 0.5 % 0.0-0.5 07/15/2016 4:2016 5:11am Absolute Neutrophils (auto) 2.4 T/MM3 1.8-7.7 07/15/2016 4:2016 5:11am Absolute Lymphocytes (auto) 1.3 T/MM3 1-4.8 07/15/2016 4:182016 5:11am Absolute Monocytes (auto) 0.4 T/MM3 0-0.8 07/15/2016 4:07/15/2016 5:11am Absolute Eosinophils (auto) 0.1 T/MM3 0-0.5 07/15/2016 4:2016 5:11am Absolute Basophils (auto) 0.0 T/MM3 0-0.2 07/15/2016 4:07/15/2016 5:11am Absolute Immature Granulocyte (auto 0.02 T/MM3 0.00-0.03 07/15/2016 4: 1807/15/2016 5:11am Absolute Reticulocyte Count 0.1193 T/MM3 H 0.0300-0.0900 07/12/2016 5: 4807/12/2016 11:34am Percent Reticulocyte Count 4.5 % H 0.6-1.7 07/12/2016 5:48am 07/12/2016 11:34am Immature Reticulocyte Fraction 21.2 % H 3.3-14.5 07/12/2016 5:4807/12 11:34am Reticulocyte Hgb Content (CHr) 39.1 PG H 30.8-36.6 07/12/2016 5:48am 11:34am Prothromb Time International Ratio 1.12 H 0.76-1.04 07/12/2016 5:48am 07/12/2016 11:29am THERAPUTIC RANGE=2.00-3.00 FOR ANTI-THROMBOSIS THERAPUTIC RANGE=2.50-3.50 FOR IMPLANTED VALVE Icterus Index < 2 0-7 07/15/2016 4:18am 07/15/2016 5:18am Chemistry Specimen Hemolysis < 15 0-25 07/15/2016 4:18am 07/15/2016 5 :18am 0-25: Specimen Exhibited No Hemolysis. Turbidity < 20 0-20 07/15/2016 4:18am 07/15/2016 5:18am Sodium Level 145 MEQ/L H 134-144 07/15/2016 4:18am 07/15/2016 5:18am Potassium Level 3.4 MEQ/L L 3.6-5 07/15/2016 4:18am 07/15/2016 5:18am Chloride Level 93 MEQ/L L 98-107 07/15/2016 4:18am 07/15/2016 5:18am Carbon Dioxide Level 40 MEQ/L H 22-30 07/15/2016 4:18am 07/15/2016 5: 32am Anion Gap 12 MEQ/L 5-15 07/15/2016 4:18am 07/15/2016 5:32am Blood Urea Nitrogen 16.0 MG/DL 7-17 07/15/2016 4:18am 07/15/2016 5: 18am Creatinine 1.0 MG/DL 0.7-1.2 07/15/2016 4:18am 07/15/2016 5:18am BUN/Creatinine Ratio 16 RATIO 6-26 07/15/2016 4:18am 07/15/2016 5:18am Glomerular Filtration Rate Calc 53 07/15/2016 4:18am 07/15/2016 5: 18am Glucose Level 94 MG/DL 65-110 07/15/2016 4:18am 07/15/2016 5:18am Calculated Osmolality 280 MOSM/KG 261-280 07/15/2016 4:18am 07/15/2016 5:18am Calcium Level 9.5 MG/DL 8.4-10.2 07/15/2016 4:18am 07/15/2016 5:18am Phosphorus Level 3.9 MG/DL 2.5-4.5 07/14/2016 4:39am 07/14/2016 5:37am Total Bilirubin 1.10 MG/DL 0.20-1.30 07/14/2016 4:39am 07/14/2016 5: 37am Unconjugated Bilirubin 0.60 MG/DL 0.00-1.10 07/14/2016 4:39am 2016 5:37am Conjugated Bilirubin 0.00 MG/DL 0.00-0.30 07/14/2016 4:39am 07/14/2016 5:37am Alkaline Phosphatase 54 U/L 38-126 07/14/2016 4:39am 07/14/2016 5:37am Total Protein 6.2 G/DL L 6.3-8.2 07/14/2016 4:39am 07/14/2016 5:37am Albumin 3.6 G/DL 3.5-5.0 07/14/2016 4:39am 07/14/2016 5:37am Globulin 2.6 G/DL 2.4-3.6 07/14/2016 4:39am 07/14/2016 5:37am Albumin/Globulin Ratio 1.4 RATIO 1.1-2.2 07/14/2016 4:39am 07/14/2016 5 :37am Aspartate Amino Transf (AST/SGOT) 44 U/L H 14-36 07/14/2016 4:39am 07/14 5:37am Alanine Aminotransferase (ALT/SGPT) 30 U/L 9-52 07/14/2016 4:39am 07/14 5:37am Troponin I < 0.012 ng/ml 0-0.12 07/12/2016 5:48am 07/12/2016 6:31am Troponin values with a difference of 55% increase from orginal troponin value represent a true biological DELTA value. (%increase Calc=Orginal Troponin value, divided by subsequent Troponin value, multiplied by 100) Lactate Dehydrogenase 614 U/L 313-618 07/12/2016 5:48am 07/12/2016 11: 34am KT-Zjs-N-Type Natriuretic Peptide 1720 PG/ML H 0-175 07/11/2016 3:46pm 07/11/2016 4:10pm Rule in cut points: <50 years old=450; 50-75 years old=900; >75 years old=1800; When utilizing ProBNP rule-in cut points, adjustment for impaired renal function is typically not required. Iron Level 325 UG/DL D H 37-170 07/12/2016 5:48am 07/14/2016 1:27am Total Iron Binding Capacity 358 UG/DL 261-497 07/12/2016 5:48am 2016 12:54am Percent Iron Saturation 91 % H 9-55 07/12/2016 5:48am 07/14/2016 1:27am Urine Collection Type VU INDWELLING 07/14/2016 3:29pm 2016 3:38pm Urine Color YELLOW YELLOW 07/14/2016 3:29pm 07/14/2016 3:38pm Urine Turbidity CLOUDY CLEAR 07/14/2016 3:29pm 07/14/2016 3:38pm Urine Specific [place] 1.015 1.015-1.025 07/14/2016 3:29pm 2016 3:38pm Urine pH 7.0 5.0-8.0 07/14/2016 3:29pm 07/14/2016 3:38pm Urine Leukocyte Esterase 3+ A NEGATIVE 07/14/2016 3:29pm 07/14/2016 3: 38pm Urine Nitrite POSITIVE A NEGATIVE 07/14/2016 3:29pm 07/14/2016 3:38pm Urine Protein NEGATIVE NEGATIVE 07/14/2016 3:29pm 07/14/2016 3:38pm Urine Glucose (UA) NEGATIVE NEGATIVE 07/14/2016 3:pm 07/14/2016 3: 38pm Urine Ketones NEGATIVE NEGATIVE 07/14/2016 3:29pm 07/14/2016 3:38pm Urine Urobilinogen 0.2 EU/DL NORMAL 07/14/2016 3:29pm 07/14/2016 3: 38pm Urine Bilirubin NEGATIVE NEGATIVE 07/14/2016 3:29pm 07/14/2016 3: 38pm Urine Blood 3+ A NEGATIVE 07/14/2016 3:29pm 07/14/2016 3:38pm Urine WBC 20-30 /HPF H 0-5 07/14/2016 3:29pm 07/14/2016 4:12pm Urine WBC Clumps FEW 07/14/2016 3:29pm 07/14/2016 4:12pm Urine RBC 5-10 /HPF H 0-3 07/14/2016 3:29pm 07/14/2016 4:12pm Urine Squamous Epithelial Cells 0-5 07/14/2016 3:29pm 07/14/2016 4: 12pm Urine Bacteria 2+ H NEGATIVE 07/14/2016 3:29pm 07/14/2016 4:12pm Urine Culture Indicated CULT REFLEXED &SETUP 07/14/2016 3:29pm 4:12pm Blood Smear Pathologist Review SENT FOR REVIEW 07/13/2016 4:47am 9:28am Haptoglobin 4 mg/dL L 36-195 07/12/2016 5:48am 07/12/2016 7:53pm Haptoglobin performed at [facility], [address] [place] [address] Eligibility Specialist Francois Payne DO Microbiology Results Procedure Source Organism/Result Collection Date/Time [...] 5 DAYS 07/02/2016 4:01pm 07/07/2016 4:03pm Final Urine Culture Urine, Vu Indwelling GRAM NEGATIVE ALF 07/14/2016 4:12pm 07/15/2016 12:43pm Preliminary Name: BHAVNA LIU Unit #: [id number] : 1935 Sex: F Admit Date: 07/12/16 Loc / Svc: MED Discharge Date: DIAGNOSTIC IMAGING REPORT Report #: [id number] [facility] [place], [place] Indication: ITS.REASON: PORTAL HTN PROCEDURE: US ABD/PELVIC DOPPLER COMPLETE: Encounter: Initial Comparison: None FINDINGS: The abdominal aorta is nonaneurysmal. The gallbladder is surgically absent. CBD is normal measuring 3.2 mm. The pancreas is largely obscured by bowel gas. Visualized portions of the pancreas are unremarkable. The liver is diffusely echogenic in echotexture with nodular contour and left lobe hypertrophy suggesting cirrhosis. Duplex Doppler ultrasound was used to evaluate the velocity of flow within the portal vein and to document flow in the appropriate direction.. The hepatic veins are patent. The IVC is unremarkable. The spleen is normal, measuring 11.6 cm in length. No free fluid. Included portions of the right kidney are unremarkable. IMPRESSION: Evidence for abdominal cirrhosis with echogenic nodular liver parenchyma.. The flow within the portal vein is in the appropriate direction. The hepatic veins and IVC are patent.. . Procedures Procedure Status Date Provider(s) Routine venipuncture Completed 04/16/16 Complete cbc w/auto diff wbc Completed 04/16/16 [id number] TRIP CHARGE. Completed 04/16/16 Coni subq tissue 20 sq cm/< Completed 04/30/16 Culture othr specimn aerobic Completed 04/30/16 Cultr bacteria except blood Completed 04/30/16 Culture type immunologic Completed 04/30/16 Smear gram stain Completed 04/30/16 [id number]"BORDER, EACH DRESSING" Completed 04/30/16 E&M LEVEL - FACILITY Completed 04/30/16 Coni subq tissue 20 sq cm/< Completed 05/14/16 [id number]"BORDER, EACH DRESSING" Completed 05/14/16 Routine venipuncture Completed 05/08/16 Hepatic function panel Completed 05/08/16 Complete cbc w/auto diff wbc Completed 05/08/16 Prothrombin time Completed 05/08/16 [id number] TRIP CHARGE. Completed 05/08/16 Routine venipuncture Completed 05/14/16 Comprehen metabolic panel Completed 05/14/16 Complete cbc w/auto diff wbc Completed 05/14/16 Prothrombin time Completed 05/14/16 [id number] TRIP CHARGE. Completed 05/14/16 E&M LEVEL - FACILITY Completed 05/28/16 Routine venipuncture Completed 05/28/16 Vitamin b-12 Completed 05/28/16 Assay of folic acid serum Completed 05/28/16 Hematocrit Completed 05/28/16 Hemoglobin Completed 05/28/16 [id number] TRIP CHARGE. Completed 05/28/16 Control of nosebleed Completed 06/01/16JulyIVONE DO Emergency dept visit Completed 06/01/16 Urinalysis auto w/scope Completed 06/03/16 Complete cbc w/auto diff wbc Completed 06/03/16 Prothrombin time Completed 06/03/16 Esophagogastroduodenoscopy (EGD) with closed biopsy Completed 07/01/16 SUSY SHAH MD, FACS, CWS Colonoscopy with polypectomy and biopsy Completed 07/02/16 SUSY SHAH MD, FACS, CWS Encounters Encounter Location Arrival/Admit Date Discharge/Depart Date Attending Provider Discharged Inpatient [facility] 07/12/16 10:17am 07/15/16 3:55pm KURTIS FOOTE MD Registered [facility] 07/09/16 12:59am WILLIE ZUNIGA MD Discharged Inpatient [facility] 06/30/16 10:27am 07/07/16 3:15pm CONNIE MAYFIELD MD [facility] 06/03/16 11:02am PAOLA HORVATH Departed Emergency Room [facility] 06/01/16 10:58pm 06/02/16 12: 43am IVONE MILLS DO [facility] 05/28/16 8:37am SHAMA SULLIVAN MD Registered [facility] 05/28/16 12:25am PAOLA HORVATH [facility] 05/14/16 8:27am SHAMA SULLIVAN MD [facility] 05/14/16 12:58am PAOLA HORVATH [facility] 05/08/16 12:37am RONALD TAVERAS DO [facility] 04/30/16 8:27am SHAMA SULLIVAN MD Registered Clinic [facility] 04/16/16 2:38am WILLIE ZUNIGA MD
--- OUTSIDE RECORDS SUMMARY | 2016-08-03 19:17 | XMS REPORT | Continuity of Care Document ---
Author Author Harman [facility] Organization [facility] LIVE Address Unknown Phone Unavailable Support Name Relationship Address Phone SHAMA SULLIVAN MD Caregiver [address] [place] [phone] MYLENE GARCIA MD Caregiver [address] [place] [place] [address] [phone] TAMI LIU Next Of Kin [address] [place] [address] Insurance Providers Payer Name Policy Number Subscriber Name Relationship Medicare [id number] Andie Liu 19 Self [facility] Other [id number] Andie Liu 19 Self [facility] [id number] Andie Liu 19 Self Advance Directives Directive [...] up lab - come to lab at [facility] on Monday December 02, 2013 [...] of your legs. 3.During office hours, call [phone] 4. After hours, please call [facility] at [phone], and have the intertype operator page your Surgeon IN THE EVENT [...] F (96.8 - 99.1) Temperature (Calculated Celsius) 36.72497 degrees C (36.0 - 37.3) Temperature Source [...] March 20, 2009 3:14pm Complete - FAX [phone] Eosinophils # (Auto) November 24, 2013 4:55am [...] 10, 2013 7:24pm LAB TEST FORM REQUEST [id number] - Lactate Dehydrogenase March 20, 2009 3:15pm [...] 24, 2013 4:55am 13.2 % H 0-9.0 UC-Cwf-I-Type Natriuretic Peptide November 23, 2013 12:44pm 585 [...] 20, 2009 2:45pm Not done - PLEASE JOINT CUTTER Thyroid Stimulating Hormone (TSH) November 23, 2013 [...] Has specimen been collected/obtained? Y Urine Specific [place] November 23, 2013 2:15pm >=1.030 H - [...] 2012 7:06pm Name: ANDIE LIU Unit #: [id number] : 1935 Sex: F Loc / Svc: MED DOS: 11/23/13 Signed Report #: [id number] DIAGNOSTIC IMAGING REPORT TYPE OF EXAM: CHEST, [...] procedures. Encounters Encounter Location Date/Time Discharged Inpatient [facility] 11/23/13 4:12pm Registered Clinic [facility] 10/24/13 8:06am Recent Diagnosis Acute kidney injury
--- OUTSIDE RECORDS SUMMARY | 2016-08-03 19:17 | XMS REPORT | Continuity of Care Document ---
Author Author [facility] Organization [facility] Address Unknown Phone Unavailable Support Name Relationship Address Phone TAMI LIU Next Of Kin [address] [place] [address] Unavailable Insurance Providers Payer Name Policy Number Subscriber Name Relationship [facility] [id number] Andie Liu Self Medicare [id number] Andie Liu Self [facility] Other [id number] Andie Liu Self Problems No Known Problems [...] Congestive Heart Failure N HAS BEEN DEBATED, "HOUSE PARENT SAYS NO" 4:13pm Hx Heart Attack N [...] 2:20pm 45 MEQ/L N 30-90 Urine Specific [place] October 13, 2011 5:20pm 1.010 L - [...] 30, 2012 8:15am 0.2 % N 0.0-0.5 EC-Bbm-Q-Type Natriuretic Peptide October 13, 2011 5:25pm 1240 PG/ML H 0-175 Urine Microscopic Not Indicated October 13, 2011 5:20pm Not indicated - Procedures Procedure Code Date PARTICAL MASTECTOMY 86315 08/31/08 BIOPSY/REMOVAL LYMPH NODES 06302 08/31/08 RA TRACER ID OF SENTINL NODE [id number] 08/31/08 PACKED CELL TRANSFUSION 99.04 04/24/09 INCISION OF NOSE 21.1 10/14/11 REPAIR OF NASAL SEPTUM 85746 02/06/12 THER FX NASAL INF TURBINATE 79529 02/06/12 [id number] CANCER SCREENING; COLONOSCOPY ON INDIVIDUAL G0121 06/04/12 MUSCULOSKELETAL SURGERY 38240 09/30/12 Blood Culture 10/13/11 Eye/Ear/Nose/Throat Culture 10/13/11 Encounters Encounter Location Date/Time Discharged Inpatient [facility] 10/13/11 4:58pm
--- OUTSIDE RECORDS SUMMARY | 2016-08-03 19:18 | XMS REPORT | Continuity of Care Document ---
Author Author Harman [facility] LIVE Organization [facility] LIVE Address Unknown Phone Unavailable Support Name Relationship Address Phone MYLENE GARCIA MD Caregiver [address] [place] [phone] LAWRENCE ALMONTE MD Caregiver [address] [place] [address] TAMI LIU DPOA Next Of Kin [address] [place] [address] Insurance Providers Payer Name Policy Number Subscriber Name Relationship Medicare [id number] Andie Liu 19 Self [facility] Other [id number] Andie Liu Self [facility] [id number] Andie Liu Self Advance Directives Directive Response [...] of your legs. 3.During office hours, call [phone] 4. After hours, please call [facility] at [phone], and have the carton packaging machine operator page your Surgeon IN THE [...] F (96.8 - 99.1) Temperature (Calculated Celsius) 36.96154 degrees C (36.0 - 37.3) Temperature Source [...] March 20, 2009 3:14pm Complete - FAX [phone] Eosinophils # (Auto) February 04, 2014 6:18am [...] 08, 2013 7:36pm LAB TEST FORM REQUEST [id number] - Lactate Dehydrogenase March 20, 2009 3:15pm [...] 04, 2014 6:18am 10.2 % H 0-9.0 NF-Xiu-U-Type Natriuretic Peptide December 02, 2013 3:55pm 1720 [...] 20, 2009 2:45pm Not done - PLEASE FINANCIAL DEALERS Thyroid Stimulating Hormone (TSH) November 23, 2013 [...] Has specimen been collected/obtained? Y Urine Specific [place] February 02, 2014 4:11pm 1.020 - Has [...] 2012 7:06pm Name: ANDIE LIU Unit #: [id number] : 1935 Sex: F Loc / Svc: ED DOS: 02/02/14 Signed Report #: [id number] DIAGNOSTIC IMAGING REPORT TYPE OF EXAM: CT [...] procedures. Encounters Encounter Location Date/Time Discharged Inpatient [facility] 02/03/14 6:28pm Registered Clinic [facility] 12/08/13 12:17pm Registered [facility] 12/02/13 4:56pm Discharged Inpatient [facility] 11/23/13 4:12pm Recent Diagnosis Gastroenteritis
--- OUTSIDE RECORDS SUMMARY | 2016-08-03 19:21 | XMS REPORT | Continuity of Care Document ---
Author Author [facility] LIVE Organization [facility]IVE Address Unknown Phone Unavailable Support Name Relationship Address Phone TAMI LIU Next Of Kin [address] [place] [address] Unavailable Insurance Providers Payer Name Policy Number Subscriber Name Relationship [facility] [id number] Andie Liu Self Medicare [id number] Andie Liu Self [facility] Other [id number] Andie Liu Self Problems No Known Problems [...] Congestive Heart Failure N HAS BEEN DEBATED, "PAPER BAGS SEWING MACHINE OPERATOR SAYS NO" 7:00pm Hx Heart Attack N [...] Summary. Procedures Procedure Code Date PARTICAL MASTECTOMY 75996 08/31/08 BIOPSY/REMOVAL LYMPH NODES 42008 08/31/08 RA TRACER ID OF SENTINL NODE [id number] 08/31/08 PACKED CELL TRANSFUSION 99.04 04/24/09 INCISION OF NOSE 21.1 10/14/11 REPAIR OF NASAL SEPTUM 97091 02/06/12 THER FX NASAL INF TURBINATE 62724 02/06/12 [id number] CANCER SCREENING; COLONOSCOPY ON INDIVIDUAL G0121 06/04/12 MUSCULOSKELETAL SURGERY 85060 07/11/13 Blood Culture 10/13/11 Eye/Ear/Nose/Throat Culture 10/13/11 Encounters Encounter Location Date/Time Departed Emergency Room [facility] 11/08/12 6:53pm Discharged Inpatient [facility] 10/13/11 4:58pm
--- OUTSIDE RECORDS SUMMARY | 2016-08-03 19:22 | XMS REPORT | Continuity of Care Document ---
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 Type Provider Facility Loc./Unit Complaint [id number] 10/10/2015 15:15:00 2015 15:15:00 CAN Outpatient Alyssia DOWNING, [facility] W.RODGER [id number] 10/05/2015 12:15:00 2015 16:35:00 DIS Outpatient Alyssia DOWNING, [facility] W.JOHANNE [id number] 09/21/2014 05:06:00 2014 14:16:00 DIS Inpatient Juaquin DOWNING, [facility] W.9TN [id number] 09/14/2014 10:34:00 2014 10:34:00 DIS Outpatient Juaquin DOWNING, [facility] W.POA [id number] 09/11/2015 10:30:00 PEN Outpatient Alyssia DOWNING, [facility] W.END [id number] 08/31/2015 05:31:00 Document Registration
--- OUTSIDE RECORDS SUMMARY | 2016-08-03 19:22 | XMS REPORT | Continuity of Care Document ---
Author Author [facility] Organization [facility] Address Unknown Phone Unavailable Support Name Relationship Address Phone TERRY MALHOTRA MD Caregiver [address] [place] [address] Ext [phone] MYLENE GARCIA MD Caregiver [address] [place] [address] [place], [place] [phone] TAMI LIU DPOA Next Of Kin [address] [place], [place] [id number] Insurance Providers Payer Name Policy Number Subscriber Name Relationship Medicare [id number] Andie Liu [address] [facility] Other [id number] Andie Liu 19 Self [facility] [id number] Andie Liu 19 Self Advance Directives Directive Response Recorded Date/Time Ordered Resuscitation Status Full Code 04/19/14 7:30am Resuscitation Documents on File No 04/19/14 9:20am Chief Complaint and Reason for Visit Chief Complaint General Reason for Visit [id number] Gastroenteritis Hypokalemia Problems Medical Problems Problem Onset [...] Date 02/04/14 1:09pm Disposition 02 TO OBS [facility] Condition at Discharge Stable Instructions/Education Provided DI [...] F (96.8 - 99.1) Temperature (Calculated Celsius) 35.78275 degrees C (36.0 - 37.3) Temperature Source [...] March 20, 2009 3:14pm Complete - FAX [phone] Eosinophils # (Auto) February 04, 2014 6:18am [...] 08, 2013 7:36pm LAB TEST FORM REQUEST [id number] - Lactate Dehydrogenase March 20, 2009 3:15pm [...] 04, 2014 6:18am 10.2 % H 0-9.0 FL-Uui-J-Type Natriuretic Peptide December 02, 2013 3:55pm 1720 [...] 20, 2009 2:45pm Not done - PLEASE SULKY DRIVER Thyroid Stimulating Hormone (TSH) November 23, 2013 [...] Has specimen been collected/obtained? Y Urine Specific [place] February 02, 2014 4:11pm 1.020 - Has [...] 2012 7:06pm Name: ANDIE LIU Unit #: [id number] : 1935 Sex: F Loc / Svc: SRG DOS: 04/19/14 Signed Report #: [id number] DIAGNOSTIC IMAGING REPORT TYPE OF EXAM: CT [...] mild central canal narrowing. Severe right and soxe-vq-ewrcipoi left neural foraminal stenosis L2-L3: Posterior decompression. [...] 02/08/14 Encounters Encounter Location Date/Time Departed Clinic [facility] 04/19/14 8:56am Registered Clinic [facility] 02/08/14 8:34am Discharged Inpatient [facility] 02/03/14 6:28pm
--- OUTSIDE RECORDS SUMMARY | 2016-08-03 19:25 | XMS REPORT | Continuity of Care Document ---
Author Author Harman [facility] LIVE Organization [facility] LIVE Address Unknown Phone Unavailable Support Name Relationship Address Phone SHAMA SULLIVAN MD Caregiver [address] [place] [phone] MYLENE GARCIA MD Caregiver [address] [place] [address] [phone] TAMI LIU Next Of Kin [address] [place] [address] Insurance Providers Payer Name Policy Number Subscriber Name Relationship Medicare [id number] Andie Liu 19 Self [facility] Other [id number] Andie Liu 19 Self [facility] [id number] Andie Liu 19 Self Advance Directives Directive [...] up lab - come to lab at [facility] on Monday December 02, 2013 to [...] of your legs. 3.During office hours, call [phone] 4. After hours, please call [facility] at [phone], and have the multiple spindle router operator page your Surgeon IN THE EVENT [...] F (96.8 - 99.1) Temperature (Calculated Celsius) 36.48037 degrees C (36.0 - 37.3) Temperature Source [...] March 20, 2009 3:14pm Complete - FAX [phone] Eosinophils # (Auto) November 24, 2013 4:55am [...] 10, 2013 7:24pm LAB TEST FORM REQUEST [id number] - Lactate Dehydrogenase March 20, 2009 3:15pm [...] 24, 2013 4:55am 13.2 % H 0-9.0 JF-Vtz-B-Type Natriuretic Peptide November 23, 2013 12:44pm 585 [...] 20, 2009 2:45pm Not done - PLEASE LANDSCAPE ACCOUNT MANAGER Thyroid Stimulating Hormone (TSH) November 23, 2013 [...] Has specimen been collected/obtained? Y Urine Specific [place] November 23, 2013 2:15pm >=1.030 H - [...] 2012 7:06pm Name: ANDIE LIU Unit #: [id number] : 1935 Sex: F Loc / Svc: MED DOS: 11/23/13 Signed Report #: [id number] DIAGNOSTIC IMAGING REPORT TYPE OF EXAM: CHEST, [...] procedures. Encounters Encounter Location Date/Time Discharged Inpatient [facility] 11/23/13 4:12pm Registered Clinic [facility] 10/24/13 8:06am Recent Diagnosis Acute kidney injury
--- OUTSIDE RECORDS SUMMARY | 2016-08-03 19:26 | XMS REPORT | Continuity of Care Document ---
Author Author [facility] LIVE Organization [facility]IVE Address Unknown Phone Unavailable Support Name Relationship Address Phone TAMI LIU Next Of Kin [address] [place] [address] Unavailable Insurance Providers Payer Name Policy Number Subscriber Name Relationship [facility] [id number] Andie Liu Self Medicare [id number] Andie Liu Self [facility] Other [id number] Andie Liu Self Problems No Known Problems [...] Congestive Heart Failure N HAS BEEN DEBATED, "HELPER CHICKEN FARM SAYS NO" 4:13pm Hx Heart Attack N [...] 2:20pm 45 MEQ/L N 30-90 Urine Specific [place] October 13, 2011 5:20pm 1.010 L - [...] 30, 2012 8:15am 0.2 % N 0.0-0.5 MR-Kmi-E-Type Natriuretic Peptide October 13, 2011 5:25pm 1240 PG/ML H 0-175 Urine Microscopic Not Indicated October 13, 2011 5:20pm Not indicated - Procedures Procedure Code Date PARTICAL MASTECTOMY 98383 08/31/08 BIOPSY/REMOVAL LYMPH NODES 58486 08/31/08 RA TRACER ID OF SENTINL NODE 76096 08/31/08 PACKED CELL TRANSFUSION 99.04 04/24/09 INCISION OF NOSE 21.1 10/14/11 REPAIR OF NASAL SEPTUM 02098 02/06/12 THER FX NASAL INF TURBINATE 24863 02/06/12 [id number] CANCER SCREENING; COLONOSCOPY ON INDIVIDUAL G0121 06/04/12 MUSCULOSKELETAL SURGERY 87351 09/30/12 Blood Culture 10/13/11 Eye/Ear/Nose/Throat Culture 10/13/11 Encounters Encounter Location Date/Time Discharged Inpatient [facility] 10/13/11 4:58pm
--- OUTSIDE RECORDS SUMMARY | 2016-08-03 19:27 | XMS REPORT | Continuity of Care Document ---
Author Author Harman [facility] LIVE Organization [facility] LIVE Address Unknown Phone Unavailable Support Name Relationship Address Phone MLYENE GARCIA MD Caregiver [address] [place] [phone] LAWRENCE ALMONTE MD Caregiver [address] [place] [address] TAMI LIU DPOA Next Of Kin [address] [place] [address] Insurance Providers Payer Name Policy Number Subscriber Name Relationship Medicare [id number] Andie Liu 19 Self [facility] Other [id number] Andie Liu Self [facility] [id number] Andie Liu Self Advance Directives Directive Response [...] of your legs. 3.During office hours, call [phone] 4. After hours, please call [facility] at [phone], and have the cut off saw set up operator page your Surgeon IN THE EVENT [...] F (96.8 - 99.1) Temperature (Calculated Celsius) 36.75737 degrees C (36.0 - 37.3) Temperature Source [...] March 20, 2009 3:14pm Complete - FAX [phone] Eosinophils # (Auto) February 04, 2014 6:18am [...] 08, 2013 7:36pm LAB TEST FORM REQUEST [id number] - Lactate Dehydrogenase March 20, 2009 3:15pm [...] 04, 2014 6:18am 10.2 % H 0-9.0 NU-Rxz-J-Type Natriuretic Peptide December 02, 2013 3:55pm 1720 [...] 20, 2009 2:45pm Not done - PLEASE PIPE FITTER SUPERVISOR Thyroid Stimulating Hormone (TSH) November 23, 2013 [...] Has specimen been collected/obtained? Y Urine Specific [place] February 02, 2014 4:11pm 1.020 - Has [...] 2012 7:06pm Name: ANDIE LIU Unit #: [id number] : 1935 Sex: F Loc / Svc: ED DOS: 02/02/14 Signed Report #: [id number] DIAGNOSTIC IMAGING REPORT TYPE OF EXAM: CT [...] procedures. Encounters Encounter Location Date/Time Discharged Inpatient [facility] 02/03/14 6:28pm Registered Clinic [facility] 12/08/13 12:17pm [facility]istered [facility] 12/02/13 4:56pm Discharged Inpatient [facility] 11/23/13 4:12pm Recent Diagnosis Gastroenteritis
--- NOTE | 2016-08-03 19:28 | ERPDOC ---
Departure Disposition Decision Date: August 03, 2016 Disposition Decision Time: 20:03 Disposition: 01 DISCHARGED HOME, SELF-CARE Impression Impression Impression: Primary Impression: Epistaxis Severity: Severe Condition: Improved Seen By: Physician only Referrals: RONALD ESPINO DO (Family) Patient Instructions: Nosebleed (ED) Problems/Meds/Labs Reviewed?: Yes Medications reviewed and manag: Yes Additional Instructions: Leave packing in place for the next 24-48 hours. Contact her primary care physician Thursday to get appointment on Thursday or Thursday for recheck and packing removal Follow up care ordered?: Yes Mental Status: Alert HPI General Chief Complaint: Nosebleed Stated Complaint: NOSE BLEEDING Time Seen by Provider: 19:16 Source: patient, family Exam Limitations: no limitations HPI Nosebleed Initial Comments Pt has been battling nose bleed, left, for three days. Has gotten it stopped at the NH with clamp several times. Tonight, anterior nasal tampon placed but bleeding persisted. Pt has hx of severe nose bleeds due to oxygen and CPAP multiple times. Occurred At: home Onset: Gradual Severity: moderate Interventions tried: TRIED: packing, squeezing Associated Symptoms: DENIES: facial pain, fever, headache, nausea, recent facial trauma, rhinorrhea, vomiting Allergies: Coded Allergies: phenylbutazone (Verified Allergy, Mild, HIVES (BUTAZOLIDIN - MANU DISC), ) lansoprazole (Verified Adverse Reaction, Mild, DIARRHEA, 06/02/16) Past History Patient Surgical History Tonsillectomy, age 6. 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 EGD and colonoscopy, 2001. Open cholecystectomy, 2001 Bilateral cataract extraction and lens implantation, 2000. Surgery for ankle spurs twice [facility] with incidental appendectomy, 1983 Right Achilles tendon repair. Carpal tunnel release. Left knee replacement, 2004. Hemorrhoidectomy, 2005. Right corneal surgery. Posterior decompression and fusion at L4-L5, 2006. 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 L3-L4 decompression and extension of fusion to L2-L3, 2009 Septoplasty, 2011. Ileal band release of left hip, 2012. Permanent pacemaker placement, 2013. Bone marrow biopsy, 2013 L1-L2 Radical discectomy, L1-L2. Anterior lumbar interbody fusion, 2014 Back surgery, summer 2014 Past Medical History Metabolic: hypercholesterolemia, hypertension, hypothyroidism Surgical History General: back, other Joint: knee Vaccines Hx Influenza Vaccination: Yes (FALL 2015) Hx Pneumococcal Vaccination: Yes (02/2015) Social History Does patient use chewing tobac: No Second Hand Exposure: No Substance Use Type: does not use Substance last used: prior to arrival Housing: assisted living facility Advance Directives: Yes Full Code Review of Systems Constitutional Constitutional: DENIES: appetite decrease, appetite increase, chills, dizziness , fever, weakness ENMT Ears: DENIES: pain Hearing: DENIES: hearing loss, tinnitus Balance: DENIES: vertigo Nose: nosebleeds Mouth/Throat: DENIES: change in swallowing, change in voice, hoarsness, painful swallowing, sore throat Cardiovascular Cardiac: DENIES: chest pain, dyspnea on exertion Rhythm/Rate: DENIES: irregular beat, palpitations, tachycardia Vascular: DENIES: pedal edema Pulmonary Respiratory: DENIES: cough, dyspnea, pleuritic chest pain GI Upper Abdomen: DENIES: dysphagia, heartburn/indigestion, nausea, pain, vomiting Lower Abdomen: DENIES: blood in stool, constipation, diarrhea, pain General: DENIES: burning, dysuria, frequency, pain, urgency Musculoskeletal General: DENIES: cramps, joint pain, joint swelling, pain, weakness Integumentary Skin: DENIES: rash, sores Exam General General Nourishment: well nourished, well developed, appears stated age, no acute distress General Body Habitus: well groomed Vital Signs: RN Vital Signs have been reviewed: Yes Height (Feet): 5 Height (Inches): 3.00 Fastrak Nosebleed Comments Moderate active bleeding from the left knee air, appears to be high in the nose , as no bleeding sources visible. Neurologic RN Documented GCS Eye Opening: Verbal: Motor: Total: Procedures Procedures Performed Procedures Performed: Nosebleed Treatment Progress Results/Orders Orders Procedure Category Date Status Time Cocaine (Cocaine) PHA 08/03/16 Complete 19:30 Oxymetazoline Nasal PHA 08/03/16 Complete [place] (Afrin Nasal S 19:30 Medications Current ED Medications Cocaine HCl (Cocaine) 4 ml O ONCE TOP Last administered on 08/03/16 19:42; Start 08/03/16 at 19:30; Stop 08/03/16 at 19:31; Status DC Oxymetazoline HCl (Afrin Nasal [place]) 2 spray O ONCE EA NOSTRIL Last administered on 08/03/16 19:42; Start 08/03/16 at 19:30; Stop 08/03/16 at 19:31 ; Status DC Progress Progress Initially we applied Afrin nasal spray 3 sprays both nostrils and clamped for 20 minutes. Due to the patient's persistent nasal bleeding over the past several days, it was decided that the patient would benefit from some type of packing at this time. Patient would like to try a softer gentler pack, therefore Murocel pack saturated with cocaine solution was placed in the left naris. No recurrent bleeding YADIRA MALONE MD August 03, 2016 19:28
[2016-08-03] MEDS ORDERED: OXYMETAZOLINE 0.05% NASAL SPRAY 15 ML EA NOSTRIL ONE (19:30)
[2016-08-03] MEDS ORDERED: COCAINE 4% TOP ONE (19:30)
--- NOTE | 2016-08-03 19:30 | NUR ---
AT BEDSIDE PACKING REMOVED FROM PT'S NOSE BY PROVIDER. BOOKER PLACED BILAT NARES BY PROVIDER.
--- NOTE | 2016-08-03 19:42 | NUR ---
PROVIDER AT BEDSIDE PROVIDER AT BEDSIDE TO PLACE PACKING IN LEFT NARE. PROVIDER PLACED COCAINE TOPICAL SOLUTION AND PACKING TO LEFT NARE. PT TOLERATED WELL. WILL CONTINUE TO MONITOR AND REASSESS.
[2016-08-03] MEDS ORDERED: BUME2TAB18 PO (19:55)
[2016-08-03] MEDS ORDERED: METO2.5T2 PO (19:58)
[2016-08-03] MEDS ORDERED: CARB30DR BOTH EYES (20:02)
[2016-08-03] MEDS ORDERED: ONDA8TAB5 PO (20:02)
[2016-08-03] MEDS ORDERED: FENT1PAT65 TOP (20:02)
[2016-08-03] MEDS ORDERED: POTA-81 PO (20:03)
[2016-08-03] MEDS ORDERED: SALI10004 PO (20:03)
[2016-08-03 20:12] VITALS: BP 113/57; PULSE 60; RESP 18; TEMP 97.5; O2SAT 95
--- NOTE | 2016-08-03 20:12 | NUR ---
DEPART PT GIVEN DI FOR NOSEBLEED AND F/U. PT VERBALIZES UNDERSTANDING OF DI. QUESTIONS ASKED/ANSWERED - DENIES FURTHER QUESTIONS/NEEDS AT THIS TIME. NASAL PACKING IN PLACE - CLEAN/DRY/INTACT, NO SIGN OF BLEEDING AT THIS TIME. PERSONAL BELONGINGS GATHERED. PT ESCORTED/AMBULATED TO ED EXIT WITH USE OF PERSONAL WALKER. GAIT SLOW, BUT STABLE. FAMILY WAITING WITH PRIVATE VEHICLE. PT NO SIGN OF DISTRESS AT THIS TIME.
== END 2016-08-03 20:12 | disposition home or self-care (01) ==
LOC: ED 19:08
DX: R04.0 Epistaxis (principal)
CPT/HCPCS: 30901; 99283; A9270

== ENCOUNTER 2016-08-05 19:51 | Emergency (ER) | payer MEDICARE, BC ==
[~2016-08-05] VITALS: Ht 162.6 cm; Wt 81.0 kg
[~2016-08-05 19:51] MED LIST changes: -BUME1TAB17 PO; +BUME2TAB18 PO; +CARB30DR BOTH EYES; -CEPH250C2 PO; +FENT1PAT65 TOP; +METO2.5T2 PO; -METO5TAB7 PO; +ONDA8TAB5 PO; +SALI10004 PO
[2016-08-05 19:54] VITALS: Ht 162.6 cm; Wt 81.0 kg
--- OUTSIDE RECORDS SUMMARY | 2016-08-05 19:56 | XMS REPORT | Continuity of Care Document ---
Author Author [facility] Organization [facility] Address Unknown Phone Unavailable Support Name Relationship Address Phone TAMI LIU Next Of Kin [address] [place] [address] Unavailable Insurance Providers Payer Name Policy Number Subscriber Name Relationship [facility] [id number] Andie Liu Self Medicare [id number] Andie Liu Self [facility] Other [id number] Andie Liu Self Problems No Known Problems [...] Congestive Heart Failure N HAS BEEN DEBATED, "UTILITY AGENT SAYS NO" 7:00pm Hx Heart Attack N [...] Summary. Procedures Procedure Code Date PARTICAL MASTECTOMY 82167 08/31/08 BIOPSY/REMOVAL LYMPH NODES 24806 08/31/08 RA TRACER ID OF SENTINL NODE [id number] 08/31/08 PACKED CELL TRANSFUSION 99.04 04/24/09 INCISION OF NOSE 21.1 10/14/11 REPAIR OF NASAL SEPTUM 21788 02/06/12 THER FX NASAL INF TURBINATE 42465 02/06/12 [id number] CANCER SCREENING; COLONOSCOPY ON INDIVIDUAL G0121 06/04/12 MUSCULOSKELETAL SURGERY 36671 07/11/13 Blood Culture 10/13/11 Eye/Ear/Nose/Throat Culture 10/13/11 Encounters Encounter Location Date/Time Departed Emergency Room [facility] 11/08/12 6:53pm Discharged Inpatient [facility] 10/13/11 4:58pm
--- OUTSIDE RECORDS SUMMARY | 2016-08-05 19:57 | XMS REPORT | Continuity of Care Document ---
Author Author [facility] Organization [facility] Address Unknown Phone Unavailable Allergies Active Description Code Type Severity Reaction Onset Reported/Identified Relationship to Patient Clinical Status Yes Prevacid 83829 Unknown N/A 08/18/2014 Yes lansoprazole lansoprazole Drug [...] Deyvi Reza MD 414.01 CORONARY ATHEROSCLEROSIS OF [place] CORONARY VESSEL 09/21/2014 Deyvi Reza MD 416.8 [...] CAROLIN SMITH 04/07/2016 CAROLIN SMITH Z79.899 OTHER FRONT DESK COORDINATOR (CURRENT) DRUG THERAPY CAROLIN SMITH Procedures Code [...] Status Pt. Type Provider Facility Loc./Unit Complaint [id number] 10/10/2015 15:15:00 2015 15:15:00 CAN Outpatient Alyssia DOWNING, [facility] W.RODGER [id number] 10/05/2015 12:15:00 2015 16:35:00 DIS Outpatient Alyssia DOWNING, [facility] W.JOHANNE [id number] 09/21/2014 05:06:00 2014 14:16:00 DIS Inpatient Juaquin DOWNING, [facility] W.9TN [id number] 09/14/2014 10:34:00 2014 10:34:00 DIS Outpatient Juaquin DOWNING, [facility] W.POA [id number] 09/11/2015 10:30:00 PEN Outpatient Alyssia DOWNING, [facility] W.END [id number] 08/31/2015 05:31:00 Document Registration
--- OUTSIDE RECORDS SUMMARY | 2016-08-05 19:57 | XMS REPORT | Continuity of Care Document ---
Author Author [facility] Organization [facility] Address Unknown Phone Unavailable Support Name Relationship Address Phone TERRY MALHOTRA MD Caregiver [address] [place] [address] Ext [phone] MYLENE GARCIA MD Caregiver [address] [place] [address] [place], [place] [phone] TAMI LIU DPOA Next Of Kin [address] [place], [place] [id number] Insurance Providers Payer Name Policy Number Subscriber Name Relationship Medicare [id number] Andie Liu 19 Self [facility] Other [id number] Andie Liu 19 Self [facility] [id number] Andie Liu 19 Self Advance Directives Directive Response Recorded Date/Time Ordered Resuscitation Status Full Code 04/19/14 7:30am Resuscitation Documents on File No 04/19/14 9:20am Chief Complaint and Reason for Visit Chief Complaint General Reason for Visit [id number] Gastroenteritis Hypokalemia Problems Medical Problems Problem Onset [...] Date 02/04/14 1:09pm Disposition 02 TO OBS [facility] Condition at Discharge Stable Instructions/Education Provided DI [...] F (96.8 - 99.1) Temperature (Calculated Celsius) 35.71369 degrees C (36.0 - 37.3) Temperature Source [...] March 20, 2009 3:14pm Complete - FAX [phone] Eosinophils # (Auto) February 04, 2014 6:18am [...] 08, 2013 7:36pm LAB TEST FORM REQUEST [id number] - Lactate Dehydrogenase March 20, 2009 3:15pm [...] 04, 2014 6:18am 10.2 % H 0-9.0 RT-Gek-S-Type Natriuretic Peptide December 02, 2013 3:55pm 1720 [...] 20, 2009 2:45pm Not done - 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 Y Urine Specific [place] February 02, 2014 4:11pm 1.020 - Has [...] 2012 7:06pm Name: ANDIE LIU Unit #: [id number] : 1935 Sex: F Loc / Svc: SRG DOS: 04/19/14 Signed Report #: [id number] DIAGNOSTIC IMAGING REPORT TYPE OF EXAM: CT [...] mild central canal narrowing. Severe right and wsdn-da-jiwqbshp left neural foraminal stenosis L2-L3: Posterior decompression. [...]
[2016-08-05] MEDS ORDERED: COCAINE 4% TOP ONE (20:00)
[2016-08-05] MEDS ORDERED: LIDOCAINE 4% (40mg/ml) 5ml (For Resp.Tx) AEROSOL ONE (20:00)
[2016-08-05] MEDS ORDERED: OXYMETAZOLINE 0.05% NASAL SPRAY 15 ML EA NOSTRIL ONE (20:00)
--- OUTSIDE RECORDS SUMMARY | 2016-08-05 20:01 | XMS REPORT | Continuity of Care Document ---
Author Author [facility] Organization [facility] Address Unknown Phone Unavailable Support Name Relationship Address Phone SHAMA SULLIVAN MD Caregiver [address] [place] [phone] MYLENE GARCIA MD Caregiver [address] [place] [address] [phone] TAMI LIU Next Of Kin [address] [place] [address] Insurance Providers Payer Name Policy Number Subscriber Name Relationship Medicare [id number] Andie Liu 19 Self [facility] Other [id number] Andie Liu [address] [facility] [id number] Andie Liu 19 Self Advance Directives Directive [...] up lab - come to lab at [facility] on Monday December 02, 2013 to [...] of your legs. 3.During office hours, call [phone] 4. After hours, please call [facility] at [phone], and have the shell molding roller blast operator page your Surgeon IN THE EVENT [...] F (96.8 - 99.1) Temperature (Calculated Celsius) 36.09902 degrees C (36.0 - 37.3) Temperature Source [...] March 20, 2009 3:14pm Complete - FAX [phone] Eosinophils # (Auto) November 24, 2013 4:55am [...] 10, 2013 7:24pm LAB TEST FORM REQUEST [id number] - Lactate Dehydrogenase March 20, 2009 3:15pm [...] 24, 2013 4:55am 13.2 % H 0-9.0 WM-Ezb-N-Type Natriuretic Peptide November 23, 2013 12:44pm 585 [...] 20, 2009 2:45pm Not done - PLEASE CLOUD SOLUTIONS ARCHITECT Thyroid Stimulating Hormone (TSH) November 23, 2013 [...] Has specimen been collected/obtained? Y Urine Specific [place] November 23, 2013 2:15pm >=1.030 H - [...] 2012 7:06pm Name: ANDIE LIU Unit #: [id number] : 1935 Sex: F Loc / Svc: MED DOS: 11/23/13 Signed Report #: [id number] DIAGNOSTIC IMAGING REPORT TYPE OF EXAM: CHEST, [...] procedures. Encounters Encounter Location Date/Time Discharged Inpatient [facility] 11/23/13 4:12pm Registered Clinic [facility] 10/24/13 8:06am Recent Diagnosis Acute kidney injury
--- OUTSIDE RECORDS SUMMARY | 2016-08-05 20:02 | XMS REPORT | Continuity of Care Document ---
Author Author [facility] Organization [facility] Address Unknown Phone Unavailable Support Name Relationship Address Phone TAMI LIU Next Of Kin [address] [place] [address] Unavailable Insurance Providers Payer Name Policy Number Subscriber Name Relationship [facility] [id number] Andie Liu Self Medicare [id number] Andie Liu Self [facility] Other [id number] Andie Liu Self Problems No Known Problems [...] Congestive Heart Failure N HAS BEEN DEBATED, "CLINICAL ACCOUNT EXECUTIVE SAYS NO" 4:13pm Hx Heart Attack N [...] 2:20pm 45 MEQ/L N 30-90 Urine Specific [place] October 13, 2011 5:20pm 1.010 L - [...] 30, 2012 8:15am 0.2 % N 0.0-0.5 BK-Csv-B-Type Natriuretic Peptide October 13, 2011 5:25pm 1240 PG/ML H 0-175 Urine Microscopic Not Indicated October 13, 2011 5:20pm Not indicated - Procedures Procedure Code Date PARTICAL MASTECTOMY 60963 08/31/08 BIOPSY/REMOVAL LYMPH NODES 91865 08/31/08 RA TRACER ID OF SENTINL NODE 44035 08/31/08 PACKED CELL TRANSFUSION 99.04 04/24/09 INCISION OF NOSE 21.1 10/14/11 REPAIR OF NASAL SEPTUM 65926 02/06/12 THER FX NASAL INF TURBINATE 08902 02/06/12 [id number] CANCER SCREENING; COLONOSCOPY ON INDIVIDUAL G0121 06/04/12 MUSCULOSKELETAL SURGERY 66039 09/30/12 Blood Culture 10/13/11 Eye/Ear/Nose/Throat Culture 10/13/11 Encounters Encounter Location Date/Time Discharged Inpatient [facility] 10/13/11 4:58pm
--- OUTSIDE RECORDS SUMMARY | 2016-08-05 20:03 | XMS REPORT | Continuity of Care Document ---
Author Author [facility] Organization [facility] Address Unknown Phone Unavailable Support Name Relationship Address Phone MYLENE GARCIA MD Caregiver [address] [place] [phone] LAWRENCE ALMONTE MD Caregiver [address] [place] [address] TAMI LIU DPOA Next Of Kin [address] [place] [address] Insurance Providers Payer Name Policy Number Subscriber Name Relationship Medicare [id number] Andie Liu 19 Self [facility] Other [id number] Andie Liu Self [facility] [id number] Andie Liu Self Advance Directives Directive Response [...] of your legs. 3.During office hours, call [phone] 4. After hours, please call [facility] at [phone], and have the insert molding operator page your Surgeon IN THE EVENT [...] F (96.8 - 99.1) Temperature (Calculated Celsius) 36.59148 degrees C (36.0 - 37.3) Temperature Source [...] March 20, 2009 3:14pm Complete - FAX [phone] Eosinophils # (Auto) February 04, 2014 6:18am [...] 08, 2013 7:36pm LAB TEST FORM REQUEST [id number] - Lactate Dehydrogenase March 20, 2009 3:15pm [...] 04, 2014 6:18am 10.2 % H 0-9.0 KQ-Fyv-V-Type Natriuretic Peptide December 02, 2013 3:55pm 1720 [...] 20, 2009 2:45pm Not done - PLEASE DOG HAIR CLIPPER Thyroid Stimulating Hormone (TSH) November 23, 2013 [...] Has specimen been collected/obtained? Y Urine Specific [place] February 02, 2014 4:11pm 1.020 - Has [...] Stain Buttock-Left November 08, 2012 7:06pm Name: ANIDE LIU Unit #: [id number] : 1935 Sex: F Loc / Svc: ED DOS: 02/02/14 Signed Report #: [id number] DIAGNOSTIC IMAGING REPORT TYPE OF EXAM: CT [...] procedures. Encounters Encounter Location Date/Time Discharged Inpatient [facility] 02/03/14 6:28pm Registered Clinic [facility] 12/08/13 12:17pm Registered [facility] 12/02/13 4:56pm Discharged Inpatient [facility] 11/23/13 4:12pm Recent Diagnosis Gastroenteritis
--- OUTSIDE RECORDS SUMMARY | 2016-08-05 20:03 | XMS REPORT | Continuity of Care Document ---
Author Author [facility] Organization [facility] Address Unknown Phone Unavailable Support Name Relationship Address Phone YADIRA MALONE MD Caregiver [address] [place] [address] Unavailable RONALD ESPINO DO Caregiver [address] [place] [address] Unavailable TAMI LIU Next Of Kin [address] [place] [address] [phone] Insurance Providers Guarantor Bhavna Liu Address [address] [address] Email [email or web address] [facility] Policy Number [id number] Subscriber's Name Bhavna Liu Relationship 18 Self Group Number [id number] Payer [facility] [employer] Ppo Policy Number [id number] Subscriber's Name Bhavna Liu Relationship 18 Self Group Number [id number] Advance Directives Directive Response Recorded Date/Time Advanced Directives Type DNR Documentation 08/03/16 7:14pm Chief Complaint and Reason for Visit Chief Complaint Nosebleed Reason for Visit Epistaxis Problems Active Problems Medical Problem Onset Date [...] Acute Depression Unknown Chronic Diarrhea Unknown Acute Epistaxis Unknown Acute GERD (gastroesophageal reflux disease) Unknown [...] UTI (lower urinary tract infection) Unknown Acute UTI (urinary tract infection) Unknown Acute VTE (venous thromboembolism) Unknown Past Problems Medical Problem Onset Date Acute blood loss anemia Unknown Edema Unknown Post-op bleeding Unknown Posterior epistaxis Unknown UTI (urinary tract infection) Unknown Medications Current Home Medications Medication Dose Units Route Directions Days Qty Instructions Start Date Amiodarone Hcl 200 Mg Tablet 200 Mg Oral Daily 07/11/16 Atenolol 50 Mg Tablet 50 Mg Oral Daily 06/30/16 Bumetanide 2 Mg Tablet 2 Mg Oral Daily 08/03/16 Calcium Carbonate/Vitamin D3 (Calcium 600 + Vit D Caplet) 1 Each Tablet 1 Tab Oral Daily 10/16/14 Carboxymethylcellulose Sodium (Refresh Plus) 4 Drop/Amp Solution 1 Drop Both Eyes Three Times A Day as needed for Dry Eyes 08/03/16 Divalproex Sodium 500 Mg Tablet. 500 Mg Oral Daily 11/23/13 Donepezil Hcl 5 Mg Tablet 5 Mg Oral Bedtime 06/01/16 Fentanyl (Fentanyl 25 Mcg/Hr) 1 Each Patch.td72 1 Patch Topically Every 72 Hours 08/03/16 Hydrocodone/Acetaminophen (Rich[place] 10-325 Tablet) 1 Each Tablet 1 Tab Oral Every 6 Hours as needed for Prn Orders 30 Tablet 07/07/16 Levothyroxine Sodium 112 Mcg Tablet 112 Mcg Oral Before Breakfast 07/05/15 Melatonin 3 Mg Tablet 5-10 Mg Oral Bedtime as needed for Sleep Metolazone 2.5 Mg Tablet 2.5 Mg Oral Mowefr@0900 08/03/16 Mirabegron (Myrbetriq) 25 Mg Tab.er.24h 25 Mg Oral Daily 06/30/16 Omeprazole 20 Mg Tablet. 20 Mg Oral Twice A Day 07/11/16 Ondansetron Hcl (Zofran) 8 Mg Tablet 8 Mg Oral Every 8 Hours as needed for Nausea &/Or Vomiting 08/03/16 Ospemifene (Osphena) 60 Mg Tablet 60 Mg Oral Daily 07/11/16 Polyethylene Glycol 3350 (Miralax) 17 Gm Powd.pack 17 Gm Oral Daily as needed for Constipation 06/01/16 Potassium Chloride 20 Meq Tablet.er 60 Meq Oral Twice Daily With Meals 08/03/16 Pramipexole Di-Hcl (Mirapex) 1 Mg Tablet 1 Mg Oral Daily 04/19/14 Prednisone 5 Mg Tablet 7.5 Mg Oral Give With Breakfast 06/30/16 Rifaximin (Xifaxan) 550 Mg Tablet 550 Mg Oral Twice A Day Saliva Substitution Combo No.9 (Biotene) 1,000 Ml Mouthwash 15 Ml Oral 5 Times Daily as needed for Dry Mouth 08/03/16 Sertraline Hcl (Zoloft) 100 Mg Tablet 100 [...] Mg Oral As Needed 09/27/09 Discontinued Hydrocodone/Acetaminophen (Richmond 10-325 Tablet) 1 Each Tablet, 1 Tab Oral Every 6 Hours as needed for Prn Orders 07/09/15 Discontinued Hydrocodone/Acetaminophen (Rich[place] 10-325 Tablet) 1 Each Tablet, 1 Tab [...] Discontinued Triamcinolone Acetonide (Nasacort Aq) 16.5 Gm D Hanis, 2 Sprays Nasal Daily 18/01 Discontinued Social History Social History Problem Response Recorded Date/Time Onset Date Status Chewing Tobacco Status No 11/11/2012 5:10pm Not Applicable Not Applicable Hx Substance Use No 08/03/2016 7:14pm Not Applicable Not Applicable Hx Alcohol Use No 08/03/2016 7:14pm Not Applicable Not Applicable Has the pt used tobacco in the last 12 months No 07/11/2016 5:53pm Not Applicable Not Applicable Tobacco Usage none 07/06/2015 1:05pm Not Applicable Not Applicable Query Response Start Date Stop Date Smoking Status Never smoker Hospital Discharge Instructions No hospital discharge instructions. Plan of Care Discharge Date 08/03/16 8:12pm Disposition 01 DISCHARGED HOME, SELF-CARE Condition at Discharge Improved Instructions/Education Provided Nosebleed (ED) Prescriptions See Medication Section Referrals RONALD ESPINO DO Address: [address] [place] [address] Additional Instructions/Education Leave packing in place for the next 24-48 hours. Contact her primary care physician Thursday to get appointment on Thursday or Thursday for recheck and packing removal Care Plan and Goals Physician Care Plan Problem: Left epistaxis Goal: Follow up with primary care provider Instructions: Take medications and follow care plan as discussed/written Leave packing in place for the next 24-48 hours. Contact her primary care physician Thursday to get appointment on Thursday or Thursday for recheck and packing removal Functional Status No functional status results. Allergies, Adverse Reactions, Alerts Allergen Type Severity Reaction Status Last Updated Phenylbutazone Allergy Mild HIVES (BUTAZOLIDIN - MANU DISC) Active Lansoprazole Adverse Reaction Mild DIARRHEA Active 06/02/16 Immunizations Immunization Event Date Type Not Given Reason Dose Number Lot Number Jewel Stringer VIS Given Pneumococcal conjugate PCV 13 07/12/16 Administered 1 [id number] Pfizer Query Response on File Recorded Date/Time Hx Influenza Vaccination Y fall 201507/11/16 5:53pm Hx Pneumococcal Vaccination Y 02/201507/11/16 5:53pm Hx Influenza Vaccination Y fall 201507/11/16 5:53pm Influenza Vaccine Hx jan 2016 08/03/16 7:14pm Tdap Vaccine Hx UNKNOWN 02/14/16 9:26am Vital Signs Acute Vital Signs Vital Response Date/Time Temperature (Fahrenheit) 97.5 deg F (96.8 - 99.1) 08/03/2016 8:12pm Temperature (Calculated Celsius) 36.53894 degrees C (36.0 - 37.3) 08/03/2016 8:12pm Pulse Rate (adult) 60 bpm (60 - 100) 08/03/2016 8:12pm Respiratory Rate 18 breaths/min (10 - 20) 08/03/2016 8:12pm O2 Sat by Pulse Oximetry 95 % (90 - 100) 08/03/2016 8:12pm Oxygen Delivery Method Nasal Cannula 07/15/2016 8:41am Oxygen Delivery Method Room Air 07/15/2016 1:55pm Oxygen Flow Rate 1.00 L/min 07/15/2016 8:41am Blood Pressure 113/57 mm Hg 08/03/2016 8:12pm Blood Pressure Source Automatic Cuff 07/15/2016 8:26am Height (Feet) 5 feet 08/03/2016 7:14pm Height (Inches) 4.00 inches 08/03/2016 7:14pm Weight (Kilograms) 81.900 kg 08/03/2016 7:14pm Body Mass Index (BMI) 30.0 08/03/2016 7:14pm Results Laboratory Results Test Name Result Units Flags Reference Collection Date/Time Result Date/ Time Comments Vitamin B12 Level 798 PG/ML [id number] 05/28/2016 6:00am 05/30/2016 3: 21am Folate 5.6 NG/ML 2.76-20 05/28/2016 6:00am 05/30/2016 3:21am NORMAL ADULT RANGE: 2.76->20 ng/mL Neutrophils % (Manual) 66.0 % 33-66 07/02/2016 4:am 07/02/2016 5: 56am Lymphocytes % (Manual) 26.0 % 23-45 07/02/2016 4:29am 07/02/2016 5: 56am Monocytes % (Manual) 8.0 % 0-9.0 07/02/2016 4:29am 07/02/2016 5:56am Absolute Neutrophils (Manual) 2.8 T/MM3 1.8-7.7 07/02/2016 4:29am 07/02 5:56am Lymphocytes # (Manual) 1.1 T/MM3 1-4.8 07/02/2016 4:29am 07/02/2016 5: 56am Monocytes # (Manual) 0.3 T/MM3 0-0.8 07/02/2016 4:29am 07/02/2016 5: 56am Red Cell Morphology Comment ABNORMAL 07/02/2016 4:29am 07/02/2016 5 :56am Anisocytosis 1+ 07/02/2016 4:2907/02/2016 5:56am Poikilocytosis 1+ 07/02/2016 4:29am 07/02/2016 5:56am Activated Partial Thromboplast Time 31.1 SEC [...] 8:34am CA 27.29 27.72 U/ML 0-37.7 07/09/2016 7:15am 07/09/2016 9:04am Absolute Reticulocyte Count 0.1193 T/MM3 H 0.0300-0.0900 07/12/2016 5: 48am 07/12/2016 11:34am Percent Reticulocyte Count 4.5 % H 0.6-1.7 07/12/2016 5:48am 07/12/2016 11:34am Immature Reticulocyte Fraction 21.2 % H 3.3-14.5 07/12/2016 5:48am 07/12 11:34am Reticulocyte Hgb Content (CHr) 39.1 PG H 30.8-36.6 07/12/2016 5:48am 11:34am Prothromb Time International Ratio 1.12 H 0.76-1.04 07/12/2016 5:48am 07/12/2016 11:29am THERAPUTIC RANGE=2.00-3.00 FOR ANTI-THROMBOSIS THERAPUTIC RANGE=2.50-3.50 FOR IMPLANTED VALVE Phosphorus Level 3.9 MG/DL 2.5-4.5 07/14/2016 4:39am 07/14/2016 5:37am Unconjugated Bilirubin 0.60 MG/DL 0.00-1.10 07/14/2016 4:39am 2016 5:37am Conjugated Bilirubin 0.00 MG/DL 0.00-0.30 07/14/2016 4:39am 07/14/2016 5:37am Troponin I < 0.012 ng/ml 0-0.12 07/12/2016 5:48am 07/12/2016 6:31am Troponin values with a difference of 55% increase from orginal troponin value represent a true biological DELTA value. (%increase Calc=Orginal Troponin value, divided by subsequent Troponin value, multiplied by 100) Lactate Dehydrogenase 614 U/L 313-618 07/12/2016 5:48am 07/12/2016 11: 34am UM-Yfa-M-Type Natriuretic Peptide 1720 PG/ML H 0-175 07/11/2016 [...] CLEAR 07/14/2016 3:29pm 07/14/2016 3:38pm Urine Specific [place] 1.015 1.015-1.025 07/14/2016 3:29pm 2016 3:38pm Urine pH 7.0 5.0-8.0 07/14/2016 3:pm 07/14/2016 3:38pm Urine Leukocyte Esterase 3+ A NEGATIVE 07/14/2016 3:pm 07/14/2016 3: 38pm Urine Nitrite POSITIVE A NEGATIVE 07/14/2016 3:pm 07/14/2016 3:38pm Urine Protein NEGATIVE NEGATIVE 07/14/2016 3:pm 07/14/2016 3:38pm Urine Glucose (UA) NEGATIVE NEGATIVE 07/14/2016 3:pm 07/14/2016 3: 38pm Urine Ketones NEGATIVE NEGATIVE 07/14/2016 3:pm 07/14/2016 3:38pm Urine Urobilinogen 0.2 EU/DL NORMAL 07/14/2016 3:pm 07/14/2016 3: 38pm Urine Bilirubin NEGATIVE NEGATIVE 07/14/2016 3:pm 07/14/2016 3: 38pm Urine Blood 3+ A NEGATIVE 07/14/2016 3:pm 07/14/2016 3:38pm Urine WBC 20-30 /HPF H 0-5 07/14/2016 3:pm 07/14/2016 4:12pm Urine WBC Clumps FEW 07/14/2016 3:pm 07/14/2016 4:12pm Urine RBC 5-10 /HPF H 0-3 07/14/2016 3:pm 07/14/2016 4:12pm Urine Squamous Epithelial Cells 0-5 07/14/2016 3:07/14/2016 4: 12pm Urine Bacteria 2+ H NEGATIVE 07/14/2016 3:07/14/2016 4:12pm Urine Culture Indicated CULT REFLEXED &SETUP 07/14/2016 3:pm 4:12pm Blood Smear Pathologist Review SENT FOR REVIEW 07/13/2016 4:47am 9:28am Haptoglobin 4 mg/dL L 36-195 07/12/2016 5:48am 07/12/2016 7:53pm Haptoglobin performed at [facility] [address], [address], [place] [address] Inspector Publications Francois Malvin W, DO White Blood Count 3.9 T/MM3 L 4.5-11.0 07/21/2016 5:45am 07/21/2016 6: 44am Red Blood Count 3.89 M/MM3 L 4.00-5.20 07/21/2016 5:45am 07/21/2016 6: 44am Hemoglobin 11.6 GM/DL L 12-16 07/21/2016 5:45am 07/21/2016 6:44am Hematocrit 37.5 % 36-46 07/21/2016 5:45am 07/21/2016 6:44am Mean Corpuscular Volume 96.4 UM3 80-100 07/21/2016 5:45am 07/21/2016 6: 44am Mean Corpuscular Hemoglobin 29.8 UUG 26-34 07/21/2016 5:45am 2016 6:44am Mean Corpuscular Hemoglobin Concent 30.9 GM/DL L 31-37 07/21/2016 5:45am 07/21/2016 6:44am RDW Standard Deviation 64.8 FL H 36.9-50.2 07/21/2016 5:45am 07/21/2016 6:44am Platelet Count 81 T/MM3 L 130-400 07/21/2016 5:45am 07/21/2016 6:44am Mean Platelet Volume 12.5 UM3 H 9.4-12.4 07/21/2016 5:45am 07/21/2016 6: 44am Neutrophils (%) (Auto) 46.4 % 33-66 07/21/2016 5:45am 07/21/2016 6: 44am Lymphocytes (%) (Auto) 40.2 % 23-45 07/21/2016 5:45am 07/21/2016 6: 44am Monocytes (%) (Auto) 11.3 % H 0-9.0 07/21/2016 5:45am 07/21/2016 6:44am Eosinophils (%) (Auto) 1.5 % 0-4 07/21/2016 5:45am 07/21/2016 6:44am Basophils (%) (Auto) 0.3 % 0-2 07/21/2016 5:45am 07/21/2016 6:44am Immature Granulocyte % (Auto) 0.3 % 0.0-0.5 07/21/2016 5:45am 2016 6:44am Absolute Neutrophils (auto) 1.8 T/MM3 1.8-7.7 07/21/2016 5:45am 2016 6:44am Absolute Lymphocytes (auto) 1.6 T/MM3 1-4.8 07/21/2016 5:45am 2016 6:44am Absolute Monocytes (auto) 0.4 T/MM3 0-0.8 07/21/2016 5:45am 07/21/2016 6:44am Absolute Eosinophils (auto) 0.1 T/MM3 0-0.5 07/21/2016 5:45am 2016 6:44am Absolute Basophils (auto) 0.0 T/MM3 0-0.2 07/21/2016 5:45am 07/21/2016 6:44am Absolute Immature Granulocyte (auto 0.01 T/MM3 0.00-0.03 07/21/2016 5: 45am 07/21/2016 6:44am Icterus Index < 2 0-7 07/30/2016 6:0007/30/2016 8:17am Chemistry Specimen Hemolysis < 15 0-25 07/30/2016 6:0007/30/2016 8 :17am 0-25: Specimen Exhibited No Hemolysis. Turbidity < 20 0-20 07/30/2016 6:0007/30/2016 8:17am Sodium Level 145 MEQ/L H 134-144 07/30/2016 6:0007/30/2016 8:17am Potassium Level 3.3 MEQ/L L 3.6-5 07/30/2016 6:0007/30/2016 8:17am Chloride Level 98 MEQ/L 98-107 07/30/2016 6:0007/30/2016 8:17am Carbon Dioxide Level 34 MEQ/L H 22-30 07/30/2016 6:0007/30/2016 8: 17am Anion Gap 13 MEQ/L 5-15 07/30/2016 6:0007/30/2016 8:17am Blood Urea Nitrogen 35.0 MG/DL H 7-17 07/30/2016 6:00am 07/30/2016 8: 17am Creatinine 1.0 MG/DL 0.7-1.2 07/30/2016 6:00am 07/30/2016 8:17am BUN/Creatinine Ratio 35 RATIO H 6-26 07/30/2016 6:00am 07/30/2016 8: 17am Glomerular Filtration Rate Calc 53 07/30/2016 6:00am 07/30/2016 8: 17am Glucose Level 96 MG/DL 65-110 07/30/2016 6:00am 07/30/2016 8:17am Calculated Osmolality 287 MOSM/KG H 261-280 07/30/2016 6:00am 2016 8:17am Calcium Level 9.4 MG/DL 8.4-10.2 07/30/2016 6:00am 07/30/2016 8:17am Total Bilirubin 0.70 MG/DL 0.20-1.30 07/30/2016 6:00am 07/30/2016 8: 17am Alkaline Phosphatase 58 U/L 38-126 07/30/2016 6:00am 07/30/2016 8:17am Total Protein 6.4 G/DL 6.3-8.2 07/30/2016 6:00am 07/30/2016 8:17am Albumin 3.6 G/DL 3.5-5.0 07/30/2016 6:00am 07/30/2016 8:17am Globulin 2.8 G/DL 2.4-3.6 07/30/2016 6:00am 07/30/2016 8:17am Albumin/Globulin Ratio 1.3 RATIO 1.1-2.2 07/30/2016 6:00am 07/30/2016 8 :17am Aspartate Amino Transf (AST/SGOT) 56 U/L H 14-36 07/30/2016 6:00am 07/30 8:17am Alanine Aminotransferase (ALT/SGPT) 46 U/L 9-52 07/30/2016 6:00am 07/30 8:17am Microbiology Results Procedure Source Organism/Result Collection Date/Time Result Date/Time Result Status Blood Culture Peripheral/Iv Start NO GROWTH AFTER 5 DAYS 06/30/2016 7:37am 07/05/2016 7:39am Final Urine Culture Urine, Voided-Not Cc-Midstream ENTEROBACTER CLOACAE 2016 9:52am 07/02/2016 7:46am Final Blood Culture Cath/Port/Line/Picc NO GROWTH AFTER 5 DAYS 07/02/2016 4:01pm 07/07/2016 4:03pm Final Urine Culture Urine, Vu Indwelling ENTEROBACTER CLOACAE 07/14/2016 4: 12pm 07/16/2016 6:45am Final Procedures Procedure Status Date Provider(s) Coni subq tissue 20 sq cm/< Completed 05/14/16 580934"BORDER, EACH DRESSING" Completed 05/14/16 Routine venipuncture Completed 05/08/16 Hepatic function panel Completed 05/08/16 Complete cbc w/auto diff wbc Completed 05/08/16 Prothrombin time Completed 05/08/16 [id number] TRIP CHARGE. Completed 05/08/16 Routine venipuncture Completed 05/14/16 Comprehen metabolic panel Completed 05/14/16 Complete cbc w/auto diff wbc Completed 05/14/16 Prothrombin time Completed 05/14/16 [id number] TRIP CHARGE. Completed 05/14/16 E&M LEVEL - FACILITY Completed 05/28/16 Routine venipuncture Completed 05/28/16 Vitamin b-12 Completed 05/28/16 Assay of folic acid serum Completed 05/28/16 Hematocrit Completed 05/28/16 Hemoglobin Completed 05/28/16 [id number] TRIP CHARGE. Completed 05/28/16 Control of nosebleed Completed 06/01/16JulyIVONE DO Emergency dept visit Completed 06/01/16 Urinalysis auto w/scope Completed 06/03/16 Complete cbc w/auto diff wbc Completed 06/03/16 Prothrombin time Completed 06/03/16 Egd biopsy single/multiple Completed 06/30/16 CONNIE MAYFIELD MD Colonoscopy and biopsy Completed 06/30/16 CONNIE MAYFIELD MD Colonoscopy and biopsy Completed 06/30/[address] angiography chest Completed 06/30/[address] angiography chest Completed 06/30/16 TERRY CASTILLO MD Insert picc cath Completed 06/30/16 TERRY CASTILLO MD Ther/proph/diag iv inf init Completed 06/30/16 TERRY CASTILLO MD 894496"(BLOOD PRODUCTS, DRUGS, AND NURSING VISITS CODED SEPA Completed CONNIE MAYFIELD MD TRANSFUSE NONAUT RED BLOOD CELLS IN PERIPH VEIN, PERC Completed 07/05/16 CONNIE MAYFIELD MD EXCISION OF STOMACH, ENDO, DIAGN Completed 07/01/16 SUSY SHAH MD, FACS, CWS [facility] EXCISION OF ASCENDING COLON, ENDO, DIAGN Completed 07/02/16 SUSY SHAH MD, FACS, CWS [facility] EXCISION OF RECTUM, ENDO, DIAGN Completed 07/02/16 SUSY SHAH MD, FACS , CWS [facility] CT SCAN OF L PULM ART USING L OSM CONTRAST Completed 06/30/[address] SCAN OF R PULM ART USING L OSM CONTRAST Completed 06/30/16 TERRY CASTILLO MD INSERTION OF INFUSION DEV INTO SUP VENA CAVA, PERC APPROACH Completed TERRY CASTILLO MD Blood transfusion service Completed 07/12/16 CHANTELLE OWENS MD Vaccine toxoid Completed 07/12/16 CHANTELLE OWENS MD Immunization admin Completed 07/12/16 CHANTELLE OWENS MD TRANSFUSE NONAUT RED BLOOD CELLS IN PERIPH VEIN, PERC Completed 07/12/16 CHANTELLE OWENS MD INTRODUCTION OF SERUM/TOX/VACCINE INTO MUSCLE, PERC APPROACH Completed CHANTELLE OWENS MD Encounters Encounter Location Arrival/Admit Date Discharge/Depart Date Attending Provider Departed Emergency Room [facility] 08/03/16 7:08pm 08/03/16 8: 12pm YADIRA MALONE MD Registered Referred [facility] 07/30/16 12:44am RONALD ESPINO DO Registered Referred [facility] 07/21/16 12:41am RONALD ESPINO DO Registered Referred [facility] 07/17/16 12:42am RONALD ESPINO DO Registered Referred [facility] 07/16/16 1:25am RONALD ESPINO DO Discharged Inpatient [facility] 07/12/16 10:17am 07/15/16 3:55pm KURTIS FOOTE MD Registered Referred [facility] 07/09/16 12:59am WILLIE MARTÍNEZ MD Discharged Inpatient [facility] 06/30/16 10:27am 07/07/16 3:15pm CONNIE MAYFIELD MD Registered Clinic [facility] 06/03/16 11:02am PAOLA HORVATH Departed Emergency Room [facility] 06/01/16 10:58pm 06/02/16 12: 43am JULYIVONE DO Registered [facility] 05/28/16 8:37am SHAMA SULLIVAN MD Registered [facility] 05/28/16 12:25am PAOLA HORVATH Registered [facility] 05/14/16 8:27am SHAMA SULLIVAN MD Registered [facility] 05/14/16 12:58am PAOLA HORVATH Registered [facility] 05/08/16 12:37am RONALD ESPINO DO Recent Diagnosis
--- OUTSIDE RECORDS SUMMARY | 2016-08-05 20:05 | XMS REPORT | Continuity of Care Document ---
Author Author [facility] Organization [facility] Address Unknown Phone Unavailable Support Name Relationship Address Phone TAMI LIU Next Of Kin [address] [place] [address] Unavailable Insurance Providers Payer Name Policy Number Subscriber Name Relationship [facility] [id number] Andie Liu Self Medicare [id number] Andie Liu Self [facility] Other [id number] Andie Liu Self Problems No Known Problems [...] Congestive Heart Failure N HAS BEEN DEBATED, "PIPE CLEANER SAYS NO" 7:00pm Hx Heart Attack N [...] Summary. Procedures Procedure Code Date PARTICAL MASTECTOMY 84396 08/31/08 BIOPSY/REMOVAL LYMPH NODES 28075 08/31/08 RA TRACER ID OF SENTINL NODE 68390 08/31/08 PACKED CELL TRANSFUSION 99.04 04/24/09 INCISION OF NOSE 21.1 10/14/11 REPAIR OF NASAL SEPTUM 30030 02/06/12 THER FX NASAL INF TURBINATE 57535 02/06/12 [id number] CANCER SCREENING; COLONOSCOPY ON INDIVIDUAL G0121 06/04/12 MUSCULOSKELETAL SURGERY 38735 07/11/13 Blood Culture 10/13/11 Eye/Ear/Nose/Throat Culture 10/13/11 Encounters Encounter Location Date/Time Departed Emergency Room [facility] 11/08/12 6:53pm Discharged Inpatient [facility] 10/13/11 4:58pm
--- OUTSIDE RECORDS SUMMARY | 2016-08-05 20:06 | XMS REPORT | Continuity of Care Document ---
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 Type Provider Facility Loc./Unit Complaint [id number] 10/10/2015 15:15:00 2015 15:15:00 CAN Outpatient Alyssia DOWNING, [facility] W.RODGER [id number] 10/05/2015 12:15:00 2015 16:35:00 DIS Outpatient Alyssia DOWNING, [facility] W.JOHANNE [id number] 09/21/2014 05:06:00 2014 14:16:00 DIS Inpatient Juaquin DOWNING, [facility] W.9TN [id number] 09/14/2014 10:34:00 2014 10:34:00 DIS Outpatient Juaquin DOWNING, [facility] W.POA [id number] 09/11/2015 10:30:00 PEN Outpatient Alyssia DOWNING, [facility] W.END [id number] 08/31/2015 05:31:00 Document Registration
--- OUTSIDE RECORDS SUMMARY | 2016-08-05 20:07 | XMS REPORT | Continuity of Care Document ---
Author Author [facility] Organization [facility] Address Unknown Phone Unavailable Support Name Relationship Address Phone TERRY MALHOTRA MD Caregiver [address] [place] [address] [address] MYLENE GARCIA MD Caregiver [address] [place] [address] [address] [place], [place] [phone] TAMI LIU DPOA Next Of Kin [address] [place], [place] [id number] Insurance Providers Payer Name Policy Number Subscriber Name Relationship Medicare [id number] Andie Liu 19 Self [facility] Other [id number] Andie Liu 18 Self [facility] [id number] Andie Liu 18 Self Advance Directives Directive Response Recorded Date/Time Ordered Resuscitation Status Full Code 04/19/14 7:30am Resuscitation Documents on File No 04/19/14 9:20am Chief Complaint and Reason for Visit Chief Complaint General Reason for Visit [id number] Gastroenteritis Hypokalemia Problems Medical Problems Problem Onset [...] Date 02/04/14 1:09pm Disposition 02 TO OBS [facility] Condition at Discharge Stable Instructions/Education Provided [...] F (96.8 - 99.1) Temperature (Calculated Celsius) 35.72077 degrees C (36.0 - 37.3) Temperature Source [...] March 20, 2009 3:14pm Complete - FAX [phone] Eosinophils # (Auto) February 04, 2014 6:18am [...] 08, 2013 7:36pm LAB TEST FORM REQUEST [id number] - Lactate Dehydrogenase March 20, 2009 3:15pm [...] 04, 2014 6:18am 10.2 % H 0-9.0 EW-Tko-D-Type Natriuretic Peptide December 02, 2013 3:55pm 1720 [...] 20, 2009 2:45pm Not done - PLEASE ARCHITECTURE CONSULTANT Thyroid Stimulating Hormone (TSH) November 23, 2013 [...] Has specimen been collected/obtained? Y Urine Specific [place] February 02, 2014 4:11pm 1.020 - Has [...] 2012 7:06pm Name: ANDIE LIU Unit #: [id number] : 1935 Sex: F Loc / Svc: SRG DOS: 04/19/14 Signed Report #: [id number] DIAGNOSTIC IMAGING REPORT TYPE OF EXAM: CT [...] mild central canal narrowing. Severe right and [id number] left neural foraminal stenosis L2-L3: Posterior decompression. [...] 02/08/14 Encounters Encounter Location Date/Time Departed Clinic [facility] 04/19/14 8:56am Registered Clinic [facility] 02/08/14 8:34am Discharged Inpatient [facility] 02/03/14 6:28pm
--- NOTE | 2016-08-05 20:09 | ERPDOC ---
Departure Disposition Decision Date: August 05, 2016 Disposition Decision Time: 20:33 Disposition: 01 DISCHARGED HOME, SELF-CARE Impression Impression Impression: Primary Impression: Epistaxis Severity: Moderate Condition: Improved Seen By: Physician only Referrals: RONALD ESPINO DO (Family) Problems/Meds/Labs Reviewed?: Yes Medications reviewed and manag: Yes Follow up care ordered?: Yes Mental Status: Alert HPI General Stated Complaint: NOSE BLEED Time Seen by Provider: 19:54 Source: patient, family Exam Limitations: no limitations HPI Nosebleed Initial Comments Patient presents with recurrent nosebleed. Patient was seen several days ago, had a Merocel pack placed with cocaine saturation that relieved nosebleed well at the time. Patient was seen today by Dr. Medina her primary care physician, had removal of the pack, and immediately started having persistent nose bleeding. Patient was then deferred to the care of Dr. Perez, ENT, in [place] who was able to identify an area of bleeding and cauterize it in his office to good hemostasis. However the patient thinks that she might of her nose accidentally this evening, and restarted the nosebleed now. Occurred At: home Onset: Gradual Duration: 1 hr Severity: moderate Interventions tried: TRIED: direct pressure Allergies: Coded Allergies: phenylbutazone (Verified Allergy, Mild, HIVES (BUTAZOLIDIN - MANU DISC), ) lansoprazole (Verified Adverse Reaction, Mild, DIARRHEA, 06/02/16) Past History Patient Surgical History Tonsillectomy, age 6. Colonoscopy 07/02/16- adenocarcinoma- [facility] 2012 colonoscopy normal, NO diverticula - [facility] 2015 colonoscopy normal in [facility] Colonoscopy, 1997, 2002, 2012. EGD and colonoscopy, 2001. Open cholecystectomy, 2001 Bilateral cataract extraction and lens implantation, 2000. Surgery for ankle spurs twice [facility] with incidental appendectomy, 1983 Right Achilles tendon repair. Carpal tunnel release. Left knee replacement, 2004. Hemorrhoidectomy, 2005. Right corneal surgery. Posterior decompression and fusion at L4-L5, 2006. 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 L3-L4 decompression and extension of fusion to L2-L3, 2009 Septoplasty, 2011. Ileal band release of left hip, 2012. Permanent pacemaker placement, 2013. Bone marrow biopsy, 2013 L1-L2 Radical discectomy, L1-L2. Anterior lumbar interbody fusion, 2014 Back surgery, summer 2014 Past Medical History Metabolic: hypercholesterolemia, hypertension, hypothyroidism Surgical History General: back, other Joint: knee Vaccines Hx Influenza Vaccination: Yes (FALL 2015) Hx Pneumococcal Vaccination: Yes (02/2015) Social History Does patient use chewing tobac: No Second Hand Exposure: No Substance Use Type: does not use Substance last used: prior to arrival Housing: assisted living facility Advance Directives: Yes Full Code Review of Systems Constitutional Constitutional: DENIES: appetite decrease, appetite increase, chills, dizziness , fever, weakness ENMT Ears: DENIES: pain Hearing: DENIES: hearing loss, tinnitus Balance: DENIES: vertigo Mouth/Throat: DENIES: change in swallowing, change in voice, hoarsness, painful swallowing, sore throat Cardiovascular Cardiac: DENIES: chest pain, dyspnea on exertion Rhythm/Rate: DENIES: irregular beat, palpitations, tachycardia Vascular: DENIES: pedal edema Pulmonary Respiratory: DENIES: cough, dyspnea, pleuritic chest pain GI Upper Abdomen: DENIES: dysphagia, heartburn/indigestion, nausea, pain, vomiting Lower Abdomen: DENIES: blood in stool, constipation, diarrhea, pain General: DENIES: burning, dysuria, frequency, pain, urgency Musculoskeletal General: DENIES: cramps, joint pain, joint swelling, pain, weakness Integumentary Skin: DENIES: rash, sores Neurological General: DENIES: headache, numbness, tingling, vertigo, weakness Psychiatric Psychiatric: DENIES: anxiety, depression, nervousness Exam General General Nourishment: well nourished, well developed, appears stated age, no acute distress General Body Habitus: well groomed Vital Signs: RN Vital Signs have been reviewed: Yes Height (Feet): 5 Height (Inches): 4.00 Fastrak Nosebleed Comments Mild active bleeding from an undetermined site in the left naris. Neck (brief) Neck Brief: FOUND: trachea midline, NOT FOUND: JVD, adenopathy, spasm, tenderness, thyromegaly Respiratory (brief) Respiratory Brief: FOUND: clear all echols, equal bilaterally, symmetrical, NOT FOUND: rales, tenderness, wheezes Cardiovascular (brief) Cardiac Brief: FOUND: regular rate, regular rhythm, NOT FOUND: pedal edema Capillary Refill: <2 sec Neurologic RN Documented GCS Eye Opening: Verbal: Motor: Total: Progress Results/Orders Orders Procedure Category Date Status Time Lidocaine 4% PHA 08/05/16 Complete (Resp.Tx) (Lidocaine 20:00 Oxymetazoline Nasal PHA 08/05/16 Complete [place] (Afrin Nasal S 20:00 Cocaine (Cocaine) PHA 08/05/16 Complete 20:00 Medications Current ED Medications Lidocaine HCl (LIDOCAINE 4% (Resp.Tx)) 4 mg O ONCE AEROSOL ; Start 08/05/16 at 20:00; Stop 08/05/16 at 20:01; Status DC Oxymetazoline HCl (Afrin Nasal [place]) 2 spray O ONCE EA NOSTRIL ; Start at 20:00; Stop 08/05/16 at 20:01; Status DC Cocaine HCl (Cocaine) 4 ml O ONCE TOP ; Start 08/05/16 at 20:00; Stop 08/05/16 at 20:01; Status DC Progress Progress Patient initially treated with 3 sprays of 1:1 Afrin/4% lidocaine solution and nasal clamp for 20 minutes Then soft Merocel pack placed and saturated with cocaine solution to good hemostasis. YADIRA MALONE MD August 05, 2016 20:09
--- OUTSIDE RECORDS SUMMARY | 2016-08-05 20:10 | XMS REPORT | Continuity of Care Document ---
Author Author [facility] Organization [facility] Address Unknown Phone Unavailable Support Name Relationship Address Phone SHAMA SULLIVAN MD Caregiver [address] [place] [phone] MYLENE GARCIA MD Caregiver [address] [place] [address] [phone] TAMI LIU Next Of Kin [address] [place] [address] Insurance Providers Payer Name Policy Number Subscriber Name Relationship Medicare [id number] Andie Liu 19 Self [facility] Other [id number] Andie Liu 19 Self [facility] [id number] Andie Liu 19 Self Advance Directives Directive [...] up lab - come to lab at [facility] on Monday December 02, 2013 [...] of your legs. 3.During office hours, call [phone] 4. After hours, please call [facility] at [phone], and have the power grader operator page your Surgeon IN THE EVENT [...] F (96.8 - 99.1) Temperature (Calculated Celsius) 36.88428 degrees C (36.0 - 37.3) Temperature Source [...] March 20, 2009 3:14pm Complete - FAX [phone] Eosinophils # (Auto) November 24, 2013 4:55am [...] 10, 2013 7:24pm LAB TEST FORM REQUEST [id number] - Lactate Dehydrogenase March 20, 2009 3:15pm [...] 24, 2013 4:55am 13.2 % H 0-9.0 AS-Kmc-Q-Type Natriuretic Peptide November 23, 2013 12:44pm 585 [...] 20, 2009 2:45pm Not done - PLEASE SLITTER SCORER CUT OFF 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 Y Urine Specific [place] November 23, 2013 2:15pm >=1.030 H - [...] 2012 7:06pm Name: ANDIE LIU Unit #: [id number] : 1935 Sex: F Loc / Svc: MED DOS: 11/23/13 Signed Report #: [id number] DIAGNOSTIC IMAGING REPORT TYPE OF EXAM: CHEST, [...]
--- OUTSIDE RECORDS SUMMARY | 2016-08-05 20:11 | XMS REPORT | Continuity of Care Document ---
Author Author [facility] Organization [facility] Address Unknown Phone Unavailable Support Name Relationship Address Phone TAMI LIU Next Of Kin [address] [place] [address] Unavailable Insurance Providers Payer Name Policy Number Subscriber Name Relationship [facility] [id number] Andie Liu Self Medicare [id number] Andie Liu Self [facility] Other [id number] Andie Liu Self Problems No Known Problems [...] Congestive Heart Failure N HAS BEEN DEBATED, "CONDITIONING ROOM WORKER SAYS NO" 4:13pm Hx Heart Attack N [...] 2:20pm 45 MEQ/L N 30-90 Urine Specific [place] October 13, 2011 5:20pm 1.010 L - [...] 30, 2012 8:15am 0.2 % N 0.0-0.5 VI-Dic-S-Type Natriuretic Peptide October 13, 2011 5:25pm 1240 PG/ML H 0-175 Urine Microscopic Not Indicated October 13, 2011 5:20pm Not indicated - Procedures Procedure Code Date PARTICAL MASTECTOMY 58230 08/31/08 BIOPSY/REMOVAL LYMPH NODES 59285 08/31/08 RA TRACER ID OF SENTINL NODE 99282 08/31/08 PACKED CELL TRANSFUSION 99.04 04/24/09 INCISION OF NOSE 21.1 10/14/11 REPAIR OF NASAL SEPTUM 91576 02/06/12 THER FX NASAL INF TURBINATE 71600 02/06/12 [id number] CANCER SCREENING; COLONOSCOPY ON INDIVIDUAL G0121 06/04/12 MUSCULOSKELETAL SURGERY 92976 09/30/12 Blood Culture 10/13/11 Eye/Ear/Nose/Throat Culture 10/13/11 Encounters Encounter Location Date/Time Discharged Inpatient [facility] 10/13/11 4:58pm
--- OUTSIDE RECORDS SUMMARY | 2016-08-05 20:12 | XMS REPORT | Continuity of Care Document ---
Author Author [facility] Organization [facility] Address Unknown Phone Unavailable Support Name Relationship Address Phone MYLENE GARCIA MD Caregiver [address] [place] [phone] LAWRENCE ALMONTE MD Caregiver [address] [place] [address] TAMI LIU DPOA Next Of Kin [address] [place] [address] Insurance Providers Payer Name Policy Number Subscriber Name Relationship Medicare [id number] Andie Liu 19 Self [facility] Other [id number] Andie Liu Self [facility] [id number] Andie Liu Self Advance Directives Directive Response [...] of your legs. 3.During office hours, call [phone] 4. After hours, please call [facility] at [phone], and have the tracing lathe set up operator page your Surgeon IN [...] F (96.8 - 99.1) Temperature (Calculated Celsius) 36.19190 degrees C (36.0 - 37.3) Temperature Source [...] March 20, 2009 3:14pm Complete - FAX [phone] Eosinophils # (Auto) February 04, 2014 6:18am [...] 08, 2013 7:36pm LAB TEST FORM REQUEST [id number] - Lactate Dehydrogenase March 20, 2009 3:15pm [...] 04, 2014 6:18am 10.2 % H 0-9.0 BB-Npf-Z-Type Natriuretic Peptide December 02, 2013 3:55pm 1720 [...] 20, 2009 2:45pm Not done - PLEASE NANNY BABYSITTER Thyroid Stimulating Hormone (TSH) November 23, 2013 [...] Has specimen been collected/obtained? Y Urine Specific [place] February 02, 2014 4:11pm 1.020 - Has [...] 2012 7:06pm Name: ANDIE LIU Unit #: [id number] : 1935 Sex: F Loc / Svc: ED DOS: 02/02/14 Signed Report #: [id number] DIAGNOSTIC IMAGING REPORT TYPE OF EXAM: CT [...] procedures. Encounters Encounter Location Date/Time Discharged Inpatient [facility] 02/03/14 6:28pm Registered Clinic [facility] 12/08/13 12:17pm Registered [facility] 12/02/13 4:56pm Discharged Inpatient [facility] 11/23/13 4:12pm Recent Diagnosis Gastroenteritis
--- NOTE | 2016-08-05 20:26 | NUR ---
PROVIDER/NOSE TREATMENT DR. MALONE IN ROOM WITH PT, EPISTAXSIS TREATMENT.
--- NOTE | 2016-08-05 20:35 | NUR ---
PT STATUS NO FURTHER HEMORRHAGE NOTED FOLLOWING TREATMENT. PT DENIES ANY COMPLAINTS AND SON STATES HE WILL TAKE PT BACK HOME.
[2016-08-05 20:42] VITALS: BP 148/62; PULSE 64; RESP 14; TEMP 98.6; O2SAT 98
== END 2016-08-05 20:48 | disposition home or self-care (01) ==
LOC: ED 19:51
DX: R04.0 Epistaxis (principal)
CPT/HCPCS: 30901; 99283; A9270

== ENCOUNTER 2016-10-23 10:54 | Inpatient (IN) ==
--- NOTE | 2016-10-23 11:47 | Emergency Department Report ---
Weakness HPI - General Chief complaint: Weakness Stated complaint: weakness, tired Time Seen by Provider: 10/23/16 11:47 Source: patient, family Mode of arrival: ambulatory Limitations: no limitations - History of Present Illness HPI Narrative: Patient is an 81-year-old female presents the emergency department for evaluation of weakness. Patient states she was septic approximately 6 months ago and has never really recovered from that. Patient has been feeling continued weakness, has been evaluated multiple times. Patient feeling more weak today so had some laboratories drawn that were "bad". They did attempt contact primary medical physician who did not return the call so patient was sent to the ER for evaluation MD Complaint: generalized weakness Onset (ago): week(s) Duration: constant - Related Data Home Medications Medication Instructions Recorded Confirmed Divalproex [Depakote] 500 mg PO DAILY #0 11/23/13 10/23/16 Levothyroxine Sodium 112 mcg PO ACB #0 07/05/15 10/23/16 Polyethylene Glycol 3350 [Miralax] 17 gm PO DAILY PRN #0 06/01/16 10/23/16 Rifaximin [Xifaxan] 550 mg PO BID #0 tab 06/01/16 10/23/16 Atenolol 50 mg PO DAILY #0 06/30/16 10/23/16 Mirabegron [Myrbetriq] 25 mg PO DAILY #0 tab 06/30/16 10/23/16 predniSONE [Prednisone] 5 mg PO WB #0 06/30/16 10/23/16 Amiodarone HCl 200 mg PO DAILY #0 07/11/16 10/23/16 Omeprazole 20 mg PO BID #0 07/11/16 10/23/16 Bumetanide 2 mg PO DAILY #0 08/03/16 10/23/16 fentaNYL [Fentanyl] 1 patch TOP Q72H #0 08/03/16 10/23/16 Bacitracin Oint 1 applic TOP QID PRN 10/23/16 10/23/16 Carboxymethylcellulose Sodium 1 each EACH EYE TID PRN 10/23/16 10/23/16 [Refresh Plus] Donepezil [Aricept] 5 mg PO HS 10/23/16 10/23/16 Hydrocodone/APAP 10/325 [[place] 1 tab PO Q6H PRN 10/23/16 10/23/16 10/325] Hydrocortisone [Anti-Itch] 1 applic TOP QID PRN 10/23/16 10/23/16 Melatonin/Pyridoxine HCl (B6) 5 - 10 mg PO HS 10/23/16 10/23/16 [Melatonin 5 mg Tablet] Metolazone [Zaroxolyn] 2.5 mg PO MOWEFR 10/23/16 10/23/16 Ondansetron [Ondansetron Odt] 8 mg PO Q8H PRN 10/23/16 10/23/16 Ospemifene [Osphena] 60 mg PO DAILY 10/23/16 10/23/16 Oxymetazoline Nasal [place] [Afrin 2 spray ALEXANDRO PRN PRN 10/23/16 10/23/16 Nasal [place]] Pramipexole [Mirapex] 1 mg PO DAILY 10/23/16 10/23/16 Saliva Substitute Mouthwash 1 applic PO BID PRN 10/23/16 10/23/16 [Biotene Dry Mouth Oral Rinse] Sertraline [Zoloft] 100 mg PO DAILY 10/23/16 10/23/16 Previous Rx's Medication Instructions Recorded Potassium Chloride [Micro-K] 40 meq PO WB 30 Days #160 capsule 11/01/16 Allergies Allergy/AdvReac Type Severity Reaction Status Date / Time phenylbutazone Allergy Mild HIVES Verified 08/05/16 20:08 (BUTAZOLIDIN - MANU DISC) lansoprazole AdvReac Mild DIARRHEA Verified 08/05/16 20:08 Review of Systems Constitutional: Reports: weakness. Denies: fever, chills ENT: Denies: throat pain, dental pain Cardiovascular: Denies: chest pain, palpitations, dyspnea on exertion Respiratory: Denies: cough, dyspnea Gastrointestinal: Denies: abdominal pain, nausea, vomiting Genitourinary: Denies: urgency, dysuria, frequency Musculoskeletal: Denies: back pain Integumentary: Denies: alopecia, change in hair Neurological: Reports: weakness. Denies: headache, numbness Psychiatric: Denies: anxiety, depression PFSH Patient Stated Medical History Congestive Heart Failure Yes Heart Murmur Yes Hypertension Yes Other Cardiology Yes: DVT Gastroesophageal Reflux Yes Disease Hx Incontinence Yes Other Musculoskeletal Yes: ARTHRITIS - Social History Smoking status: Never smoker Substance use type: does not use Alcohol intake frequency: does not drink Physical Exam - Limitations Limitations: no limitations - General General appearance: alert, in no apparent distress - Eye Eye exam: Present: PERRL - ENT ENT exam: Present: normal oropharynx, mucous membranes moist - Neck Neck exam: Present: full ROM, trachea midline - Chest Chest inspection: Present: symmetric chest wall rise. Absent: tenderness, rash - Respiratory Respiratory exam: Present: normal lung sounds bilaterally. Absent: respiratory distress, wheezes, stridor - Cardiovascular Cardiovascular exam: Present: regular rate, normal rhythm, normal heart sounds - Abdominal Exam Abdominal exam: Present: soft, normal bowel sounds. Absent: distention, tenderness - Extremities Exam Extremities exam: Present: full ROM. Absent: tenderness - Back Exam Back exam: Present: full ROM. Absent: tenderness - Skin Skin exam: Present: warm, dry - Neurological Exam Neurological exam: Present: alert, oriented X3, CN II-XII intact, normal gait, reflexes normal. Absent: motor sensory deficit - Psychiatric Psychiatric exam: Present: normal affect, normal mood Course Vital Signs Temperature 98.5 F 10/23/16 10:54 Respiratory Rate 20 10/23/16 10:54 Temperature 98.5 F 11/01/16 08:03 Pulse Rate 60 11/01/16 08:59 Respiratory Rate 16 11/01/16 08:03 Blood Pressure 113/54 11/01/16 08:03 Pulse Oximetry 94 11/01/16 08:03 Weakness - MDM Narrative Medical decision making narrative: Patient is hypothyroid and hypokalemic, discussed case with hospitalist service , they will admit. - Differential Diagnosis Differential diagnosis: Likely: acute myocardial infarction, anemia, hypoglycemia, hypothyroidism, rhabdomyolysis, sepsis, dehydration - Medical Records Attestation: I reviewed the patient's medical records. - Lab Data Attestation: I reviewed the patient's lab results. Result diagrams: 10/31/16 04:32 11/01/16 07:48 Lab Results 10/23/16 10/23/16 10/23/16 Range/Units 12:16 12:18 12:18 WBC 3.7 L (4.5-11.0) T/MM3 RBC 3.61 L (4.00-5.20) M/MM3 Hgb 12.1 (12-16) GM/DL Hct 37.0 (36-46) % MCV 102.5 H (80-100) UM3 MCH 33.5 (26-34) UUG MCHC 32.7 (31-37) GM/DL RDW Std Deviation 52.2 H (36.9-50.2) FL Plt Count 70 L (130-400) T/MM3 MPV 11.2 (9.4-12.4) UM3 Immature Gran % (Auto) 0.3 (0.0-0.5) % Neut % (Auto) 49.4 (33-66) % Lymph % (Auto) 38.6 (23-45) % [place] % (Auto) 9.5 H (0-9.0) % Eos % (Auto) 1.9 (0-4) % Baso % (Auto) 0.3 (0-2) % Neut # 1.8 (1.8-7.7) T/MM3 Lymph # 1.4 (1-4.8) T/MM3 [place] # 0.4 (0-0.8) T/MM3 Eos # 0.1 (0-0.5) T/MM3 Baso # 0.0 (0-0.2) T/MM3 Abs Immat Gran (auto) 0.01 (0.00-0.03) T/MM3 Turbidity < 20 (0-20) Sodium 144 (134-144) MEQ/L Potassium 2.5 L* (3.6-5) MEQ/L Chloride 87 L (98-107) MEQ/L Carbon Dioxide 46 H* (22-30) MEQ/L Anion Gap 11 (5-15) MEQ/L BUN 24.0 H (7-17) MG/DL Creatinine 1.1 (0.7-1.2) MG/DL GFR Calculation 48 BUN/Creatinine Ratio 22 (6-26) RATIO Glucose 119 H (65-110) MG/DL Calculated Osmolality 282 H (261-280) MOSM/KG Calcium 9.3 (8.4-10.2) MG/DL Magnesium 1.7 (1.6-2.3) MG/DL Total Bilirubin 0.90 (0.20-1.30) MG/DL Icterus Index < 2 (0-7) AST 48 H (14-36) U/L ALT 42 (9-52) U/L Alkaline Phosphatase 56 (38-126) U/L Troponin I < 0.012 (0-0.12) ng/ml Total Protein 6.6 (6.3-8.2) G/DL Albumin 3.7 (3.5-5.0) G/DL Globulin 2.9 (2.4-3.6) G/DL Albumin/Globulin Ratio 1.3 (1.1-2.2) RATIO TSH 8.42 H (0.47-4.68) MIU/L Specimen Hemolysis < 15 (0-25) Ur Collection Type Urine, clean catch Urine Color Yellow (YELLOW) Urine Clarity Clear Urine pH 6.5 (5.0-8.0) Ur Specific [place] 1.010 L (1.015-1.025) Urine Protein Negative (NEGATIVE) Urine Glucose (UA) Negative (NEGATIVE) Urine Ketones Negative (NEGATIVE) Urine Occult Blood Negative (NEGATIVE) Urine Nitrate Negative (NEGATIVE) Urine Bilirubin Negative (NEGATIVE) Urine Urobilinogen 0.2 (NORMAL) EU/DL Ur Leukocyte Esterase Trace A (NEGATIVE) Urinalysis Comment Microscopic not ind. - Radiology Data Attestation: I reviewed the patient's radiology results. - EKG Data EKG #1 EKG attestation: Yes: I reviewed and interpreted this EKG. EKG shows normal: sinus rhythm (atrial pacing) Rate: normal Rhythm: NSR [place]/QRS: normal Interpretation: no acute changes Disposition Clinical Impression: hypokalemia Disposition: 02 To [facility] Acute Care Condition: Stable - Seen By: physician
[2016-10-23] MEDS ORDERED: NS 1,000 ML IV ONE (12:05)
[2016-10-23] MEDS: SALINE FLUSH 10ml SYRINGE IVF PRN ×2 (12:20→22:43)
[2016-10-23] MEDS ORDERED: CEFEPIME 1 GM in NS 100 ML IV ONE (12:44)
--- NOTE | 2016-10-23 13:00 | XRay Report ---
Indication: weakness, confusion PROCEDURE: XR chest 1V: Encounter: Initial Comparison: July 11, 2016 Findings: The lungs are clear new focal airspace consolidation. Prior pleural effusions appear to have resolved. There is no pneumothorax. The heart size, pulmonary vascularity and mediastinal contours are unchanged. Left pacemaker. Surgical clips projecting over the left breast. IMPRESSION: No acute cardiopulmonary disease. .
[2016-10-23] MEDS: LIDOCAINE 1% 2ml INJ 10 MG, POTASSIUM CHLORIDE INJ 10 MEQ in NS 100 ML IV SCH ×8 (13:21→22:39)
[2016-10-23 15:43] VITALS: BMI 30.3
--- NOTE | 2016-10-23 16:16 | History & Physical Report ---
<Rika Dumont - Last Filed: 10/23/16 17:03> History of Present Illness Date: 10/23/16 Chief complaint: weakness, hypokalemia HPI: Bhavna is a 80 -year-old female well known to the hospitalist service due to many past hospitalizations. She presented to the emergency department from [place] (where she is in assisted living) with complaints of lethargy after she had received results from routine outpatient lab work drawn earlier in the day. She was found to be significantly hypokalemic at 2.5 and was then sent emergency room for further evaluation. On workup in the emergency department, labs showed white blood cell count 3.7, hemoglobin 12.1, hematocrit 37.0, platelets 70. Chemistry panel shows sodium 144 , potassium 2.5, chloride 87, carbon dioxide 46, BUN 24, creatinine 1.1. Magnesium was 1.7. AST slightly elevated at 48, ALTs normal at 42. TSH was elevated at 8.42. Urine was essentially negative except trace leukocytes. She was given 40 mEq potassium IV and 30 mEq potassium by mouth in the emergency room. Based on her hypokalemia and weakness will admit patient to inpatient status under the care of Dr. Ortega. It is expected that her stay will be greater than 2 overnights. Bhavna is seen on initial admission with complaints of ongoing fatigue and weakness. She reports symptoms are constant; however, she will get so weak at times, that she ends up being hospitalized. She has no specific complaints at this time other than the ongoing weakness. She has had no recent fever. She does state she has chronic headaches. No chest pain or shortness of breath. Last bowel movement was 2 days ago. She is incontinent of urine the majority of time. Lack of appetite. Patient requests to be a DO NOT RESUSCITATE. This order is written. Review of Systems Comprehensive ROS: completed and no additional positive findings except those as stated - Constitutional Constitutional: Present: daytime sleepiness, fatigue, lethargy, malaise, weakness - Cardiovascular Cardiovascular: Present: edema - Gastrointestinal Gastrointestinal: Present: constipation - Genitourinary Genitourinary: Present: urinary incontinence - Neurological Neurological: Present: headache(s) - Psychiatric Psychiatric: Present: hopelessness PFSH Paroxysmal atrial fibrillation Congestive heart failure - diastolic Chronic kidney disease. Essential Hypertension History of breast cancer-2008 Chronic anemia Chronic back pain Hypothyroidism Chronic anticoagulation Dementia Chronic fatigue Depression Chronic cirrhosis Colon cancer Urinary incontinence Insomnia Chronic headaches The patient has seen Dr. Cade for her liver disease. She is on Xifaxan for this. She takes prednisone chronically for knee pains and back pain. Echocardiogram 07/11/16 IMPRESSION 1. Borderline atrial enlargement. 2. Borderline left ventricular hypertrophy with normal systolic function. EF of 67%. Suggested grade 2/4 diastolic dysfunction. 3. Dilated right atrium and right ventricle. 4. Mild pulmonary hypertension. 5. Normal central venous pressure. 6. [id number] tricuspid regurgitation. 7. Sclerotic changes of the aortic and mitral valve. Surgical History: Tonsillectomy, age 6. Colonoscopy 07/02/16- adenocarcinoma- [place]. 2012 colonoscopy normal, NO diverticula - [place]. 2015 colonoscopy normal in [facility]. Colonoscopy, 1997, 2002, 2012. EGD and colonoscopy, 2001. Open cholecystectomy, 2001. Bilateral cataract extraction and lens implantation, 2000. Surgery for ankle spurs twice. TAHBSO with incidental appendectomy, 1983. Right Achilles tendon repair. Carpal tunnel release. Left knee replacement, 2004. Hemorrhoidectomy, 2005. Right corneal surgery. Posterior decompression and fusion at L4-L5, 2006. 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 L3-L4 decompression and extension of fusion to L2-L3, 2009. Septoplasty, 2011. Iliotibial band release of left hip, 2012. Permanent pacemaker placement, 2013. Bone marrow biopsy, 2013. L1-L2 Radical discectomy, L1-L2. Anterior lumbar interbody fusion , 2014. Back surgery, summer 2014 Family History: Father age 87, CHF. Mother age 20, pancreatic cancer. - Social History Smoking status: Never smoker second hand exposure: No Substance use type: does not use Alcohol intake frequency: does not drink Housing: assisted living facility Social history: PCP-Dr. Sadie Medina Supervisor [employer]-Dr. Pimentel Surgeon-Dr. Winters Medications Home Medications Medication Instructions Recorded Confirmed Type Divalproex [Depakote] 500 mg PO DAILY #0 11/23/13 10/23/16 History Levothyroxine Sodium 112 mcg PO ACB #0 07/05/15 10/23/16 History Polyethylene Glycol 3350 [Miralax] 17 gm PO DAILY PRN #0 06/01/16 10/23/16 History Rifaximin [Xifaxan] 550 mg PO BID #0 tab 06/01/16 10/23/16 History Atenolol 50 mg PO DAILY #0 06/30/16 10/23/16 History Mirabegron [Myrbetriq] 25 mg PO DAILY #0 tab 06/30/16 10/23/16 History predniSONE [Prednisone] 5 mg PO WB #0 06/30/16 10/23/16 History Amiodarone HCl 200 mg PO DAILY #0 07/11/16 10/23/16 History Omeprazole 20 mg PO BID #0 07/11/16 10/23/16 History Bumetanide 2 mg PO DAILY #0 08/03/16 10/23/16 History fentaNYL [Fentanyl] 1 patch TOP Q72H #0 08/03/16 10/23/16 History Bacitracin Oint 1 applic TOP QID PRN 10/23/16 10/23/16 History Carboxymethylcellulose Sodium 1 each EACH EYE TID PRN 10/23/16 10/23/16 History [Refresh Plus] Donepezil [Aricept] 5 mg PO HS 10/23/16 10/23/16 History Hydrocodone/APAP 10/325 [[place] 1 tab PO Q6H PRN 10/23/16 10/23/16 History 10/325] Hydrocortisone [Anti-Itch] 1 applic TOP QID PRN 10/23/16 10/23/16 History Melatonin/Pyridoxine HCl (B6) 5 - 10 mg PO HS 10/23/16 10/23/16 History [Melatonin 5 mg Tablet] Metolazone [Zaroxolyn] 2.5 mg PO MOWEFR 10/23/16 10/23/16 History Ondansetron [Ondansetron Odt] 8 mg PO Q8H PRN 10/23/16 10/23/16 History Ospemifene [Osphena] 60 mg PO DAILY 10/23/16 10/23/16 History Oxymetazoline Nasal [place] [Afrin 2 spray ALEXANDRO PRN PRN 10/23/16 10/23/16 History Nasal [place]] Pramipexole [Mirapex] 1 mg PO DAILY 10/23/16 10/23/16 History Saliva Substitute Mouthwash 1 applic PO BID PRN 10/23/16 10/23/16 History [Biotene Dry Mouth Oral Rinse] Sertraline [Zoloft] 100 mg PO DAILY 10/23/16 10/23/16 History Allergies Allergy/AdvReac Type Severity Reaction Status Date / Time phenylbutazone Allergy Mild HIVES Verified 08/05/16 20:08 (BUTAZOLIDIN - MANU DISC) lansoprazole AdvReac Mild DIARRHEA Verified 08/05/16 20:08 Exam Vital Signs: Temperature 98.5 F 10/23/16 10:54 Pulse Rate 64 10/23/16 11:03 Respiratory Rate 20 10/23/16 10:54 Blood Pressure 126/60 10/23/16 11:01 Pulse Oximetry 94 10/23/16 11:03 Height: 1.63 m Weight: 80.1 kg Body Mass Index: 30.3 Results - Labs CBC & Chem 7: 10/23/16 12:18 10/23/16 12:18 Assessment and Plan (1) Weakness generalized Current visit: Yes Status: Acute (2) Hypokalemia Current visit: Yes Status: Acute 10/23/16 Present on admission. Potassium 2.5. DVT Prophylaxis: SCD's GI Prophylaxis: other (omeprazole) Resuscitation Status: Do Not Resuscitate Assessment and Plan: Impression Hypokalemia Weakness Paroxysmal atrial fibrillation Congestive heart failure - diastolic Chronic kidney disease. Essential Hypertension Hypothyroidism Adenocarcinoma of the colon 06/2016 History of breast cancer-2008 Dementia Chronic anemia Chronic back pain Chronic anticoagulation Depression Chronic cirrhosis Plan Admit patient to inpatient status for hypokalemia and weakness under the care of Dr. Ortega. Patient received 40 mEq potassium IV and 30 mEq potassium by mouth prior to admission. Will recheck BMP at 1800 to reevaluate potassium level. Once current boluses have infused will determine additional supplementation needs. Will monitor patient with cardiac telemetry to evaluate for dysrhythmias. TSH on admission noted to be elevated at 8.4. Patient is noted to be on levothyroxine 112 g daily. Could consider increasing dose versus repeat TSH at a later time. Will discuss with attending. Consult for PT/OT for evaluation of weakness. SCDs to bilateral lower extremities for DVT prophylaxis. Home medications are reviewed. Will review with attending. Patient is noted to be on Bumex 2 mg daily and metolazone 2.5 mg 3 days per week, however is not on any potassium supplementation. Regular diet. Routine vital signs. Up with assistance. Check CBC, BMP and magnesium in the a.m. She requests to be a DO NOT RESUSCITATE, this order is written. Will discuss further orders and plan of care with attending. At time of discharge, medical care will return to PCP, Dr. Sadie Taveras - Time spent with patient greater than 35 minutes Hospital Course Summary Disclaimer: The visit summary below is not to be considered part of the above Progress Note. Hospital Course: 10/23/16 - hospital admit Impression Hypokalemia Weakness Paroxysmal atrial fibrillation Congestive heart failure - diastolic Chronic kidney disease. Essential Hypertension Hypothyroidism Adenocarcinoma of the colon 06/2016 History of breast cancer-2008 Dementia Chronic anemia Chronic back pain Chronic anticoagulation Depression Chronic cirrhosis Plan Admit patient to inpatient status for hypokalemia and weakness under the care of Dr. Ortega. Patient received 40 mEq potassium IV and 30 mEq potassium by mouth prior to admission. Will recheck BMP at 1800 to reevaluate potassium level. Once current boluses have infused will determine additional supplementation needs. Will monitor patient with cardiac telemetry to evaluate for dysrhythmias. TSH on admission noted to be elevated at 8.4. Patient is noted to be on levothyroxine 112 g daily. Could consider increasing dose versus repeat TSH at a later time. Will discuss with attending. Consult for PT/OT for evaluation of weakness. SCDs to bilateral lower extremities for DVT prophylaxis. Home medications are reviewed. Will review with attending. Patient is noted to be on Bumex 2 mg daily and metolazone 2.5 mg 3 days per week, however is not on any potassium supplementation. Regular diet. Routine vital signs. Up with assistance. Check CBC, BMP and magnesium in the a.m. She requests to be a DO NOT RESUSCITATE, this order is written. Will discuss further orders and plan of care with attending. At time of discharge, medical care will return to PCP, Dr. Sadie Taveras <Wanda Ortega - Last Filed: 10/23/16 17:51> History of Present Illness Date: 10/23/16 [facility] Patient Stated Medical History Other HEENT Yes: wears glasses Congestive Heart Failure Yes Heart Murmur Yes Hypertension Yes Other Cardiology Yes: DVT Gastroesophageal Reflux Yes Disease Hx Incontinence Yes Other Musculoskeletal Yes: ARTHRITIS Sepsis Yes: right groin 2017 Exam Vital Signs: Temperature 97.5 F 10/23/16 15:50 Pulse Rate 65 10/23/16 16:23 Respiratory Rate 18 10/23/16 15:50 Blood Pressure 113/53 10/23/16 15:50 Pulse Oximetry 90 10/23/16 15:50 Oxygen Delivery Method Room Air Height: 1.63 m Weight: 80.1 kg Results - Labs CBC & Chem 7: 10/23/16 12:18 10/23/16 12:18 Assessment and Plan (1) Weakness generalized Current visit: Yes Status: Acute (2) Hypokalemia Problem details: Potassium 2.3 and 2.5 on date of admission Current visit: Yes Status: Acute Assessment and Plan: I have independently evaluated and examined this patient. I reviewed the chart, the patient's history, and the NURSE CASE MANAGEMENT/PA's documented findings as above. We discussed and formulated the assessment and plan as above with additions as below: Mrs. Liu describes feeling poorly for several weeks with increasing weakness such that she has not left her room for the last 10 days. She also reports increased confusion and one fall without injury. She was previously on supplemental potassium which was discontinued several weeks ago, likely in mid September after labs revealed potassium of 5.5. Repeat laboratory data this morning had potassium of 2.3 and elevated bicarbonate of 47. Patient was referred to the emergency room her potassium repeated at 2.5 and supplemental potassium initiated as noted. Patient reports that she feels significantly improved after receiving most of several doses of IV potassium. She denies palpitations. On examination the patient is alert and provides historical information although becomes flustered easily. Weight is down 10 kg from admission in June 2016. Respirations are nonlabored and breath sounds clear. Cardiac rhythm regular, 1+ lower extremity edema present. Supplemental potassium as noted-recheck later today. Patient on high-dose diuretics and will undoubtedly need potassium supplement at discharge. Initial magnesium level acceptable at 1.7. TSH modestly elevated as it was in June (10.80 on 06/30/16) and levothyroxine dose is unchanged throughout this time. Increased to 125 g daily. Chest x-ray reviewed by myself-unremarkable, telemetry strip also reviewed- paced rhythm. Old records/labs reviewed and compared to current data. Hospital Course Summary Disclaimer: The visit summary below is not to be considered part of the above Progress Note.
[2016-10-23] MEDS ORDERED: OXYMETAZOLINE 0.05% NASAL SPRAY 15ml EA NOSTRIL PRN (16:55)
[2016-10-23] MEDS ORDERED: HYDROCORTISONE 1% CREAM 28.35gm TOP PRN (16:55)
[2016-10-23] MEDS ORDERED: BACITRACIN OINT 15 GM TOP PRN (16:55)
[2016-10-23] MEDS ORDERED: ONDANSETRON ODT 4 MG TABLET PO PRN (16:55)
[2016-10-23] MEDS ORDERED: SALIVA SUBSTITUTE MOUTHWASH 237ml PO PRN (16:55)
[2016-10-23] MEDS: MELATONIN 5 MG TABLET PO SCH (21:16)
[2016-10-23] MEDS: DONEPEZIL 5 MG TABLET PO SCH (21:17)
[2016-10-23] MEDS: RIFAXIMIN 550 MG TABLET PO SCH (21:21)
[2016-10-24] MEDS: HYDROCODONE/APAP 10 MG/325 MG TABLET PO PRN ×2 (00:11→06:11)
[2016-10-24] MEDS: OMEPRAZOLE 20 MG CAPSULE PO SCH (05:59)
[2016-10-24] MEDS: LEVOTHYROXINE 125 MCG TABLET PO SCH (05:59)
[2016-10-24] MEDS: LIDOCAINE 1% 2ml INJ 10 MG, POTASSIUM CHLORIDE INJ 10 MEQ in NS 100 ML IV SCH ×4 (05:59→09:53)
[2016-10-24] MEDS: REFRESH CELLUVISC 1% Eye Drops 0.4ml EACH EYE PRN (06:11)
[2016-10-24] MEDS ORDERED: LEVOTHYROXINE 112 MCG TABLET PO SCH (06:30)
[2016-10-24] MEDS: PRAMIPEXOLE 1 MG TABLET PO SCH (08:37)
[2016-10-24] MEDS: PredniSONE 5 MG TABLET PO SCH (08:38)
[2016-10-24] MEDS: DIVALPROEX 500 MG TABLET PO SCH (08:40)
[2016-10-24] MEDS: MIRABEGRON 25mg TABLET PO SCH (08:41)
[2016-10-24] MEDS: POLYETHYL GLYCOL 3350 17gm PACKET PO SCH (08:41)
[2016-10-24] MEDS: AMIODARONE 200 MG TABLET PO SCH (08:42)
[2016-10-24] MEDS: SENNA + DOCUSATE TABLET PO SCH (08:42)
[2016-10-24] MEDS: RIFAXIMIN 550 MG TABLET PO SCH ×2 (08:44→19:59)
[2016-10-24] MEDS: SERTRALINE 100 MG TABLET PO SCH (08:45)
[2016-10-24] MEDS: BUMETANIDE 1 MG TABLET PO SCH (08:53)
[2016-10-24] MEDS: ATENOLOL 50 MG TABLET PO SCH (08:55)
[2016-10-24] MEDS ORDERED: OSPEMIFENE 60 MG PO SCH (09:00)
--- NOTE | 2016-10-24 09:43 | Progress Note ---
<Rika Dumont - Last Filed: 10/24/16 09:27> Subjective: Patient seen today in follow-up while she is eating breakfast. States she still feels very weak, but does feel she is a bit better. She no longer has a headache. Reports a good bowel movement yesterday. No complaints of chest pain or shortness of breath or dizziness. Her blood pressure is low this morning. She was 95/47, so atenolol, Bumex, and the metaxalone have been held. On repeat, blood pressure came up to 107/57. Her potassium has come up to 2.7 from 2.5 on admission. She had 40 mEq IV in the ER prior to admission along with 30 mEq by mouth. This brought her potassium at 2.7. Yesterday evening she had another 40 mEq IV and this morning her potassium remains at 2.7, so another 40 mEq IV was given at 6 AM. Another 30 mEq was given by mouth at 850 with plans to check another potassium level at 2 PM. Objective Vital signs: Temperature 98.3 F 10/24/16 07:18 Pulse Rate 59 L 10/24/16 08:00 Respiratory Rate 16 10/24/16 07:18 Blood Pressure 107/57 10/24/16 08:55 Pulse Oximetry 98 10/24/16 07:18 Oxygen Delivery Method Room Air Weight: 178 lb 9.191 oz - Constitutional Present: no acute distress, well nourished, well developed - Routine HEENT Exam Head: Present: normocephalic, atraumatic Eye: Present: EOMI ENT: Present: mucous membranes moist, dentition normal Comments: Mild ptosis bilaterally, more prominent on the left. - Routine Respiratory Exam Present: CTA bilaterally. Absent: wheezes - Routine Cardiovascular Exam Present: RRR, S1, S2. Absent: murmur - Routine Abdominal Exam Present: soft, normoactive bowel sounds, non distended. Absent: tenderness - Routine Extremities Exam Present: edema (1+ bilateral), normal capillary refill - Routine Skin Exam Present: dry, warm - Routine Neurological Exam Present: alert, oriented X3 - Routine Lymphatic Exam Lymphatic: Absent: adenopathy - Routine Psychiatric Exam Present: normal affect, normal thought process, cooperative Results - Labs CBC & Chem 7: 10/24/16 04:34 10/24/16 04:34 Assessment and Plan (1) Weakness generalized Current visit: Yes Status: Acute (2) Hypokalemia Problem details: Potassium 2.3 and 2.5 on date of admission Current visit: Yes Status: Acute 10/23/16 Present on admission. Potassium 2.5. Assessment and Plan: Assessment Hypokalemia Weakness Paroxysmal atrial fibrillation Congestive heart failure - diastolic Chronic kidney disease. Essential Hypertension Hypothyroidism Adenocarcinoma of the colon 06/2016 History of breast cancer-2009 Dementia Chronic anemia Chronic back pain Chronic anticoagulation Depression Chronic cirrhosis Plan Continue potassium supplementation. She is currently receiving 40 mEq ordered at 6 AM. Will recheck potassium at 2 PM and determine further supplementation at that time. Given the hypotension, will hold her Bumex and metolazone and atenolol dosing today. Monitor blood pressure closely. Will also have to watch for fluid overload given that we are holding the diuretics and she is receiving 100 mL normal saline with each 10 mEq of potassium. Her levothyroxine was increased from 112 g to 125 g yesterday given her elevated TSH. Will plan to have her follow-up on outpatient basis for repeat TSH in 1-2 months. Her Osphena is on hold as pharmacy does not carry this. There should be no issues with holding this medicine throughout her hospital stay. Repeat CBC in the a.m. given her leukopenia. Check chemistry and magnesium in a.m. to follow electrolytes and renal function. Sepsis Assessment - Evaluation Sepsis screening result: No Definite Risk Hospital Course Summary Disclaimer: The visit summary below is not to be considered part of the above Progress Note. Hospital Course: 10/23/16 - hospital admit Impression Hypokalemia Weakness Paroxysmal atrial fibrillation Congestive heart failure - diastolic Chronic kidney disease. Essential Hypertension Hypothyroidism Adenocarcinoma of the colon 06/2016 History of breast cancer-2009 Dementia Chronic anemia Chronic back pain Chronic anticoagulation Depression Chronic cirrhosis Plan - hospital day #1 Admit patient to inpatient status for hypokalemia and weakness under the care of Dr. Ortega. Patient received 40 mEq potassium IV and 30 mEq potassium by mouth prior to admission. Will recheck BMP at 1800 to reevaluate potassium level. Once current boluses have infused will determine additional supplementation needs. Will monitor patient with cardiac telemetry to evaluate for dysrhythmias. TSH on admission noted to be elevated at 8.4. Patient is noted to be on levothyroxine 112 g daily. Could consider increasing dose versus repeat TSH at a later time. Will discuss with attending. Consult for PT/OT for evaluation of weakness. SCDs to bilateral lower extremities for DVT prophylaxis. Home medications are reviewed. Will review with attending. Patient is noted to be on Bumex 2 mg daily and metolazone 2.5 mg 3 days per week, however is not on any potassium supplementation. Regular diet. Routine vital signs. Up with assistance. Check CBC, BMP and magnesium in the a.m. She requests to be a DO NOT RESUSCITATE, this order is written. Will discuss further orders and plan of care with attending. At time of discharge, medical care will return to PCP, Dr. Sadie Taveras 10/24/16 - hospital day #2. Continue potassium supplementation. She is currently receiving 40 mEq ordered at 6 AM. Will recheck potassium at 2 PM and determine further supplementation at that time. Given the hypotension, will hold her Bumex and metolazone and atenolol dosing today. Monitor blood pressure closely. Will also have to watch for fluid overload given that we are holding the diuretics and she is receiving 100 mL normal saline with each 10 mEq of potassium. Her levothyroxine was increased from 112 g to 125 g yesterday given her elevated TSH. Will plan to have her follow-up on outpatient basis for repeat TSH in 1-2 months. Her Osphena is on hold as pharmacy does not carry this. There should be no issues with holding this medicine throughout her hospital stay. Repeat CBC in the a.m. given her leukopenia. Check chemistry and magnesium in a.m. to follow electrolytes and renal function. <Kay Chavira - Last Filed: 10/24/16 10:25> Objective Vital signs: Temperature 98.3 F 10/24/16 07:18 Pulse Rate 59 L 10/24/16 08:00 Respiratory Rate 16 10/24/16 07:18 Blood Pressure 107/57 10/24/16 08:55 Pulse Oximetry 98 10/24/16 07:18 Oxygen Delivery Method Room Air Results - Labs CBC & Chem 7: 10/24/16 04:34 10/24/16 04:34 Labs: Laboratory Tests 09/05/15 05/14/16 07/02/16 06:15 06:39 16:01 WBC 5.8 Plt Count 82 L 91 L 0407/21/16 10/01/16 04:37 05:45 05:20 WBC 3.9 L 3.6 L Plt Count 90 L 70 L Assessment and Plan (1) Weakness generalized Current visit: Yes Status: Acute (2) Hypokalemia Problem details: Potassium 2.3 and 2.5 on date of admission Current visit: Yes Status: Acute Assessment and Plan: I have independently evaluated and examined this patient. I reviewed the chart, the patient's history, and the MEDICAID NURSE/PA's documented findings as above. We discussed and formulated the assessment and plan as above with additions as below. The patient was seen by me at 9:45 am. She is sitting up in the chair, still feels weak. She has difficulty getting up to the commode by herself. She has not been seen by physical therapy and occupational therapy yet this morning. On physical exam she is alert and oriented 3. She is very pleasant. CV regular rate and rhythm without murmur Lungs are clear Abdomen bowel sounds are present. There is no guarding or rebound,mildly obese Will continue her potassium supplementation both IV and by mouth. Recheck lab in the morning. Her lab work was reviewed. It is concerning that she has persistent neutropenia and thrombocytopenia as well as her known history of anemia. Her meds were reviewed by the pharmacist both fentanyl hasa 1% asociation as well as omeprazole as a 1% association with neutropenia. She was started on fentanyl recently because of her lower back pain which radiates to both hips. The hope was to decrease the amount of [place] she required for pain. He requires she is using less [place], but she is willing to stop the fentanyl patch and see what happens with her white blood cell count. In addition she is not sure why she is on omeprazole will hold it at this time. Try to locate the results from her bone marrow biopsy done in 2013. She believes that was done by either Dr. Cash or Dr. Winters Hospital Course Summary Disclaimer: The visit summary below is not to be considered part of the above Progress Note. Hospital Course: 10/24/16 10:25 Cait The patient was seen by me at 9:45 am. She is sitting up in the chair, still feels weak. She has difficulty getting up to the commode by herself. She has not been seen by physical therapy and occupational therapy yet this morning. On physical exam she is alert and oriented 3. She is very pleasant. CV regular rate and rhythm without murmur Lungs are clear Abdomen bowel sounds are present. There is no guarding or rebound,mildly obese Will continue her potassium supplementation both IV and by mouth. Recheck lab in the morning. Her lab work was reviewed. It is concerning that she has persistent neutropenia and thrombocytopenia as well as her known history of anemia. Her meds were reviewed by the pharmacist both fentanyl hasa 1% asociation as well as omeprazole as a 1% association with neutropenia. She was started on fentanyl recently because of her lower back pain which radiates to both hips. The hope was to decrease the amount of [place] she required for pain. He requires she is using less [place], but she is willing to stop the fentanyl patch and see what happens with her white blood cell count. In addition she is not sure why she is on omeprazole will hold it at this time. Try to locate the results from her bone marrow biopsy done in 2013. She believes that was done by either Dr. Cash or Dr. Winters
[2016-10-24] MEDS: DONEPEZIL 5 MG TABLET PO SCH ×2 (19:59→21:51)
[2016-10-24] MEDS: MELATONIN 5 MG TABLET PO SCH ×2 (19:59→21:51)
[2016-10-25] MEDS: REFRESH CELLUVISC 1% Eye Drops 0.4ml EACH EYE PRN (01:08)
[2016-10-25] MEDS: HYDROCODONE/APAP 10 MG/325 MG TABLET PO PRN ×3 (01:12→18:34)
[2016-10-25] MEDS: LEVOTHYROXINE 125 MCG TABLET PO SCH (06:06)
[2016-10-25] MEDS: AMIODARONE 200 MG TABLET PO SCH (08:21)
[2016-10-25] MEDS: RIFAXIMIN 550 MG TABLET PO SCH ×2 (08:21→21:23)
[2016-10-25] MEDS: SERTRALINE 100 MG TABLET PO SCH (08:21)
[2016-10-25] MEDS: BUMETANIDE 1 MG TABLET PO SCH (08:22)
[2016-10-25] MEDS: DIVALPROEX 500 MG TABLET PO SCH (08:22)
[2016-10-25] MEDS: ATENOLOL 50 MG TABLET PO SCH (08:22)
[2016-10-25] MEDS: MIRABEGRON 25mg TABLET PO SCH (08:22)
[2016-10-25] MEDS: SENNA + DOCUSATE TABLET PO SCH (08:23)
[2016-10-25] MEDS: POLYETHYL GLYCOL 3350 17gm PACKET PO SCH (08:23)
[2016-10-25] MEDS: PRAMIPEXOLE 1 MG TABLET PO SCH (08:25)
[2016-10-25] MEDS: PredniSONE 5 MG TABLET PO SCH (08:57)
--- NOTE | 2016-10-25 14:08 | Progress Note ---
Subjective: The patient was seen 13:00. The patient reports doing well and slept well during the night. She is feeling stronger and has been up walking around with out requiring assistance. She is concerned about losing her right antecubital IV site. She does not want to be stuck again and would like to keep it if at all possible and there is a chance she'll need IV potassium again. She tolerated oral potassium earlier this morning. Denies fevers, chills, sweats. Denies sore throat, shortness of breath , dyspnea on exertion, cough, sputum production, chest pain. Denies nausea, vomiting or diarrhea. Is urinating without difficulty, had a BM today. Objective Vital signs: Temperature 98.0 F 10/25/16 07:43 Pulse Rate 69 10/25/16 07:45 Respiratory Rate 18 10/25/16 07:43 Blood Pressure 115/54 10/25/16 07:43 Pulse Oximetry 97 10/25/16 07:43 Oxygen Delivery Method Room Air Weight: 181 lb 7.047 oz - Additional findings Additional findings: In general, the patient is alert and oriented 3, cooperative with exam, and in no respiratory distress. HEENT: Head is atraumatic, normocephalic, no conjunctival petechiae, no oral thrush, mucous membranes are moist and pink. Lungs: Clear to auscultation without wheezes, crackles or rhonchi CV: Regular rate and rhythm without murmur Abdomen: Soft, nontender, bowel sounds are present, there is no guarding no rebound. Extremities: No clubbing, no cyanosis, no edema. Skin: Warm and dry no sign of rash Neuro: Patient is alert IV access: Right antecubital area without phlebitis or tenderness. Results - Labs CBC & Chem 7: 10/25/16 04:43 10/25/16 04:43 Labs: Laboratory Tests 10/23/16 10/23/16 10/24/16 12:18 17:30 04:34 Potassium 2.5 L* 2.7 L* 2.7 L* Specimen Hemolysis < 15 < 15 10/24/16 10/24/16 10/25/16 14:21 19:06 04:43 Potassium 4.6 D 3.9 3.3 L Specimen Hemolysis 113 H 27 H < 15 Assessment and Plan (1) Weakness generalized Current visit: Yes Status: Acute (2) Hypokalemia Problem details: Potassium 2.3 and 2.5 on date of admission Current visit: Yes Status: Acute 10/23/16 Present on admission. Potassium 2.5. Resuscitation Status: Do Not Resuscitate Assessment and Plan: Impression: Hypokalemia with slow improvement Weakness improving as her potassium increases, she is also working with physical therapy Paroxysmal atrial fibrillation Congestive heart failure-diastolic Chronic kidney disease Essential hypertension Hypothyroidism Adenocarcinoma of the colon in June 2016-was scheduled for a follow-up colonoscopy by Dr. Winters in November History of breast cancer 2009 Dementia Chronic anemia, neutropenia, and thrombocytopenia. Was discussed with Dr. Zuniga he would like to see her as an outpatient for follow-up bone marrow biopsy. At this time will resume her omeprazole as it does not appear her thrombocytopenia is due to a drug effect. Chronic back pain Chronic anticoagulation which was discontinued secondary to a GI bleed in June - previously on eliquis Depression Chronic cirrhosis Recommendations: Continue with oral potassium replacement Recheck her potassium level later today and in the morning Will recheck her CBC in the a.m., expect she will need further outpatient evaluation of her pancytopenia. Her levothyroxine has been increased to 25 g daily during this admission secondary to a modestly increased TSH Continue to work with physical therapy and increase her activity. Sepsis Assessment - Evaluation Sepsis screening result: No Definite Risk Hospital Course Summary Disclaimer: The visit summary below is not to be considered part of the above Progress Note. Hospital Course: 10/24/16 10:25 [place] The patient was seen by me at 9:45 am. She is sitting up in the chair, still feels weak. She has difficulty getting up to the commode by herself. She has not been seen by physical therapy and occupational therapy yet this morning. On physical exam she is alert and oriented 3. She is very pleasant. CV regular rate and rhythm without murmur Lungs are clear Abdomen bowel sounds are present. There is no guarding or rebound,mildly obese Will continue her potassium supplementation both IV and by mouth. Recheck lab in the morning. Her lab work was reviewed. It is concerning that she has persistent neutropenia and thrombocytopenia as well as her known history of anemia. Her meds were reviewed by the pharmacist both fentanyl hasa 1% asociation as well as omeprazole as a 1% association with neutropenia. She was started on fentanyl recently because of her lower back pain which radiates to both hips. The hope was to decrease the amount of [place] she required for pain. He requires she is using less [place], but she is willing to stop the fentanyl patch and see what happens with her white blood cell count. In addition she is not sure why she is on omeprazole will hold it at this time. Try to locate the results from her bone marrow biopsy done in 2013. She believes that was done by either Dr. Cash or Dr. Winters 10/25/16 14:26 10/25/16 14:27 Impression: Hypokalemia with slow improvement Weakness improving as her potassium increases, she is also working with physical therapy Paroxysmal atrial fibrillation Congestive heart failure-diastolic Chronic kidney disease Essential hypertension Hypothyroidism Adenocarcinoma of the colon in June 2016-was scheduled for a follow-up colonoscopy by Dr. Winters in November History of breast cancer 2009 Dementia Chronic anemia, neutropenia, and thrombocytopenia. Was discussed with Dr. Zuniga he would like to see her as an outpatient for follow-up bone marrow biopsy. At this time will resume her omeprazole as it does not appear her thrombocytopenia is due to a drug effect. Chronic back pain Chronic anticoagulation which was discontinued secondary to a GI bleed in June - previously on eliquis Depression Chronic cirrhosis Recommendations: Continue with oral potassium replacement Recheck her potassium level later today and in the morning Will recheck her CBC in the a.m., expect she will need further outpatient evaluation of her pancytopenia. Her levothyroxine has been increased to 25 g daily during this admission secondary to a modestly increased TSH Continue to work with physical therapy and increase her activity.
[2016-10-25] MEDS: OMEPRAZOLE 20 MG CAPSULE PO SCH (16:45)
[2016-10-25] MEDS: DONEPEZIL 5 MG TABLET PO SCH (21:23)
[2016-10-25] MEDS: MELATONIN 5 MG TABLET PO SCH (21:23)
[2016-10-26] MEDS: HYDROCODONE/APAP 10 MG/325 MG TABLET PO PRN ×4 (00:56→21:05)
[2016-10-26] MEDS: OMEPRAZOLE 20 MG CAPSULE PO SCH ×2 (06:22→16:40)
[2016-10-26] MEDS: LEVOTHYROXINE 125 MCG TABLET PO SCH (06:22)
[2016-10-26] MEDS: SERTRALINE 100 MG TABLET PO SCH (09:07)
[2016-10-26] MEDS: DIVALPROEX 500 MG TABLET PO SCH (09:07)
[2016-10-26] MEDS: MIRABEGRON 25mg TABLET PO SCH (09:07)
[2016-10-26] MEDS: AMIODARONE 200 MG TABLET PO SCH (09:07)
[2016-10-26] MEDS: PredniSONE 5 MG TABLET PO SCH (09:07)
[2016-10-26] MEDS: PRAMIPEXOLE 1 MG TABLET PO SCH (09:07)
[2016-10-26] MEDS: ATENOLOL 50 MG TABLET PO SCH (09:08)
[2016-10-26] MEDS: BUMETANIDE 1 MG TABLET PO SCH (09:08)
[2016-10-26] MEDS: RIFAXIMIN 550 MG TABLET PO SCH ×2 (09:08→21:06)
[2016-10-26] MEDS: SENNA + DOCUSATE TABLET PO SCH (09:09)
[2016-10-26] MEDS: POLYETHYL GLYCOL 3350 17gm PACKET PO SCH (09:25)
--- NOTE | 2016-10-26 13:32 | Progress Note ---
<Patricia Gaffney - Last Filed: 10/26/16 13:26> Subjective: Ms. Liu is seen today in follow up for her hypokalemia and generalized weakness. She reports that she is feeling much better today and feels like she is making good progress. She admits to still feeling shaky initially when she stands up but states that that is not a new problem. She also complains of chronic back pain currently at 5/10 and states that her pain is identical to her typical pain. She denies any fevers, chills, chest pain, shortness of breath, abdominal pain, nausea, vomiting, dysuria, diarrhea or constipation. She states that her appetite has been good but she would love some fresh fruit, not fruit from the can. Bowels are moving. She reports that her bilateral leg pain has resolved. Overall, she appears to be making good progress. She does ask about possibly being able to have her bone biopsy by Dr. Nelson and/or the colonoscopy by Dr. Winters prior to her discharge back to [place]. On exam, she is sitting in her recliner, with her meal tray nearly empty in front of her. She is alert and orientated x 3 with a very pleasant disposition. Cardiac exam reveals regular rate and rhythm and lungs are clear to auscultation. Abdomen is soft, nontender with active bowel sounds. 2+ pedal pulses to lower extremities without edema. Vital signs are stable. Labs today revealed persistent thrombocytopenia with platelets at 57 and hypokalemia with potassium at 3.2. Objective Vital signs: Temperature 98.1 F 10/26/16 07:28 Pulse Rate 59 L 10/26/16 07:54 Respiratory Rate 18 10/26/16 07:28 Blood Pressure 131/66 10/26/16 07:28 Pulse Oximetry 94 10/26/16 07:28 Oxygen Delivery Method Room Air Weight: 176 lb 12.972 oz - Constitutional Present: no acute distress, well nourished, well developed, obese, cooperative - Routine HEENT Exam Head: Present: normocephalic, atraumatic Eye: Present: PERRL. Absent: conjunctival icterus ENT: Present: mucous membranes moist, dentition normal - Routine Respiratory Exam Present: CTA bilaterally. Absent: stridor, wheezes, crackles - Routine Cardiovascular Exam Present: RRR, S1, S2, murmur - Routine Abdominal Exam Present: soft, normoactive bowel sounds, non distended, non tender - Routine Extremities Exam Present: no edema, non tender, pulses intact, normal capillary refill. Absent: cyanosis, clubbing - Routine Back/Spine/Pelvis Exam Back/Spine: Absent: vertebral tenderness, erythema - Routine Musculoskeletal Exam Musculoskeletal: Present: no clubbing or cyanosis, moving extremities well - Routine Skin Exam Present: intact, dry, warm Comments: afebrile - Routine Neurological Exam Present: alert, oriented X3, moving all extremities, hearing grossly intact, normal speech. Absent: facial asymmetry - Routine Lymphatic Exam Lymphatic: Absent: lymphedema - Routine Psychiatric Exam Present: normal affect, cooperative Results - Labs CBC & Chem 7: 10/26/16 04:41 10/26/16 04:41 Assessment and Plan (1) Weakness generalized Current visit: Yes Status: Acute (2) Hypokalemia Problem details: Potassium 2.3 and 2.5 on date of admission Current visit: Yes Status: Acute 10/23/16 Present on admission. Potassium 2.5. DVT Prophylaxis: SCD's GI Prophylaxis: Protonix Assessment and Plan: 10/26/16-[place]. Impression: Hypokalemia, acute. * Slowly improving though potassium today was low at 3.2. Will increase daily dose to 40 mEq starting in AM and give an additional 20 mEq po now. Recheck BMP in AM to monitor electrolytes and renal function. Generalized Weakness, acute. * Continues to improve as her potassium increases. She reports feeling stronger each day and states that her activity level is back to her baseline prior to admission. Continue to encourage participation with therapy to improve functional ability and strength. Anticipate discharge in near future. May benefit from IRU. Paroxysmal atrial fibrillation, chronic. * Continue to monitor closely on telemetry. Continue home amiodarone. Congestive heart failure-diastolic, chronic. * Monitor closely for signs of fluid overload. Daily weight remaining stable. In light of hypokalemia, continue to hold metolazone. Chronic kidney disease, stage III - GFR 60. * Continue to monitor renal function. Essential hypertension, chronic. * Blood pressure well controlled. Continue to monitor closely. Continue home atenolol. In light of potassium depletion, continue to hold Bumex. Monitor closely for signs of fluid overload. Hypothyroidism, chronic. * Continue Synthroid 125mcg daily. Recheck TSH in ~6 weeks as TSH was elevated on admission. Adenocarcinoma of the colon in June 2016. * Was scheduled for a follow-up colonoscopy by Dr. Winters in November. Dementia, chronic. * Continue home medications including Aricept Chronic anemia, neutropenia, and thrombocytopenia. * Was discussed with Dr. Zuniga he would like to see her as an outpatient for follow-up bone marrow biopsy. At this time will resume her omeprazole as it does not appear her thrombocytopenia is due to a drug effect. Chronic back pain. * Continue with [place] and fentanyl patch for pain control. Continue prednisone for pain. Chronic anticoagulation with Eliquis - ON HOLD. * Eliquis discontinued secondary to a GI bleed in June. SCDs for DVT prophylaxis. Depression, chronic. * Continue home Depakote and Zoloft. Melatonin as needed for insomnia. Chronic cirrhosis. * Continue home Rifaximin. Overactive Bladder. * Continue home mirabegron. Monitor closely for signs of infection. - Time spent with patient 25 - 35 minutes Sepsis Assessment - Evaluation Sepsis screening result: No Definite Risk Hospital Course Summary Disclaimer: The visit summary below is not to be considered part of the above Progress Note. Hospital Course: 10/24/16 10:25 [place] The patient was seen by me at 9:45 am. She is sitting up in the chair, still feels weak. She has difficulty getting up to the commode by herself. She has not been seen by physical therapy and occupational therapy yet this morning. On physical exam she is alert and oriented 3. She is very pleasant. CV regular rate and rhythm without murmur Lungs are clear Abdomen bowel sounds are present. There is no guarding or rebound,mildly obese Will continue her potassium supplementation both IV and by mouth. Recheck lab in the morning. Her lab work was reviewed. It is concerning that she has persistent neutropenia and thrombocytopenia as well as her known history of anemia. Her meds were reviewed by the pharmacist both fentanyl hasa 1% asociation as well as omeprazole as a 1% association with neutropenia. She was started on fentanyl recently because of her lower back pain which radiates to both hips. The hope was to decrease the amount of [place] she required for pain. He requires she is using less [place], but she is willing to stop the fentanyl patch and see what happens with her white blood cell count. In addition she is not sure why she is on omeprazole will hold it at this time. Try to locate the results from her bone marrow biopsy done in 2013. She believes that was done by either Dr. Cash or Dr. Winters 10/25/16 14:26 10/25/16 14:27 Impression: Hypokalemia with slow improvement Weakness improving as her potassium increases, she is also working with physical therapy Paroxysmal atrial fibrillation Congestive heart failure-diastolic Chronic kidney disease Essential hypertension Hypothyroidism Adenocarcinoma of the colon in June 2016-was scheduled for a follow-up colonoscopy by Dr. Winters in November History of breast cancer 2009 Dementia Chronic anemia, neutropenia, and thrombocytopenia. Was discussed with Dr. Zuniga he would like to see her as an outpatient for follow-up bone marrow biopsy. At this time will resume her omeprazole as it does not appear her thrombocytopenia is due to a drug effect. Chronic back pain Chronic anticoagulation which was discontinued secondary to a GI bleed in June - previously on eliquis Depression Chronic cirrhosis Recommendations: Continue with oral potassium replacement Recheck her potassium level later today and in the morning Will recheck her CBC in the a.m., expect she will need further outpatient evaluation of her pancytopenia. Her levothyroxine has been increased to 25 g daily during this admission secondary to a modestly increased TSH Continue to work with physical therapy and increase her activity. 10/26/16 13:58 Impression: Hypokalemia, acute. * Slowly improving though potassium today was low at 3.2. Will increase daily dose to 40 mEq starting in AM and give an additional 20 mEq po now. Recheck BMP in AM to monitor electrolytes and renal function. Generalized Weakness, acute. * Continues to improve as her potassium increases. She reports feeling stronger each day and states that her activity level is back to her baseline prior to admission. Continue to encourage participation with therapy to improve functional ability and strength. Anticipate discharge in near future. May benefit from IRU. Paroxysmal atrial fibrillation, chronic. * Continue to monitor closely on telemetry. Continue home amiodarone. Congestive heart failure-diastolic, chronic. * Monitor closely for signs of fluid overload. Daily weight remaining stable. In light of hypokalemia, continue to hold metolazone. Chronic kidney disease, stage III - GFR 60. * Continue to monitor renal function. Essential hypertension, chronic. * Blood pressure well controlled. Continue to monitor closely. Continue home atenolol. In light of potassium depletion, continue to hold Bumex. Monitor closely for signs of fluid overload. Hypothyroidism, chronic. * Continue Synthroid 125mcg daily. Recheck TSH in ~6 weeks as TSH was elevated on admission. Adenocarcinoma of the colon in June 2016. * Was scheduled for a follow-up colonoscopy by Dr. Winters in November. Dementia, chronic. * Continue home medications including Aricept Chronic anemia, neutropenia, and thrombocytopenia. * Was discussed with Dr. Zuniga he would like to see her as an outpatient for follow-up bone marrow biopsy. At this time will resume her omeprazole as it does not appear her thrombocytopenia is due to a drug effect. Chronic back pain. * Continue with [place] and fentanyl patch for pain control. Continue prednisone for pain. Chronic anticoagulation with Eliquis - ON HOLD. * Eliquis discontinued secondary to a GI bleed in June. SCDs for DVT prophylaxis. Depression, chronic. * Continue home Depakote and Zoloft. Melatonin as needed for insomnia. Chronic cirrhosis. * Continue home Rifaximin. Overactive Bladder. * Continue home mirabegron. Monitor closely for signs of infection. <Kay Chavira - Last Filed: 10/26/16 16:01> Objective Vital signs: Temperature 98.1 F 10/26/16 07:28 Pulse Rate 63 10/26/16 15:46 Respiratory Rate 18 10/26/16 15:48 Blood Pressure 131/66 10/26/16 07:28 Pulse Oximetry 94 10/26/16 15:48 Oxygen Delivery Method Room Air Results - Labs CBC & Chem 7: 10/26/16 04:41 10/26/16 04:41 Assessment and Plan (1) Weakness generalized Current visit: Yes Status: Acute (2) Hypokalemia Problem details: Potassium 2.3 and 2.5 on date of admission Current visit: Yes Status: Acute Assessment and Plan: I have independently evaluated and examined this patient. I reviewed the chart, the patient's history, and the STAGE TECHNICIAN/PA's documented findings as above. We discussed and formulated the assessment and plan as above with additions as below. The patient is feeling better although she remains weak. He does report she has an appointment to see Dr. Rodo Brown as a new patient in a few weeks because of her kidney function. She reports her back pain is stable. She does not want to resume the fentanyl at this time. In general, the patient is alert and oriented 3, cooperative with exam, and in no respiratory distress. HEENT: Head is atraumatic, normocephalic, no oral thrush, mucous membranes are moist and pink. Lungs: Clear to auscultation without wheezes, crackles or rhonchi CV: Regular rate and rhythm without murmur Abdomen: Soft, nontender, bowel sounds are present, there is no guarding no rebound. Extremities: No clubbing, no cyanosis, no edema. Skin: Warm and dry no sign of rash Neuro: Patient is alert Agree with plans as outlined above. Check with Dr. Winters in the morning about possible colonoscopy as an inpatient or an outpatient for follow-up. She will need an outpatient follow-up visit with Dr. Zuniga for a bone marrow biopsy. Hospital Course Summary Disclaimer: The visit summary below is not to be considered part of the above Progress Note.
[2016-10-26] MEDS: DONEPEZIL 5 MG TABLET PO SCH (21:05)
[2016-10-26] MEDS: MELATONIN 5 MG TABLET PO SCH (21:11)
[2016-10-26] MEDS: SALINE FLUSH 10ml SYRINGE IVF PRN (21:15)
[2016-10-27] MEDS: HYDROCODONE/APAP 10 MG/325 MG TABLET PO PRN ×3 (04:45→23:02)
[2016-10-27] MEDS: REFRESH CELLUVISC 1% Eye Drops 0.4ml EACH EYE PRN (04:45)
[2016-10-27] MEDS: LEVOTHYROXINE 125 MCG TABLET PO SCH (06:10)
[2016-10-27] MEDS: OMEPRAZOLE 20 MG CAPSULE PO SCH ×2 (06:10→17:06)
[2016-10-27] MEDS: PredniSONE 5 MG TABLET PO SCH (08:42)
[2016-10-27] MEDS: BUMETANIDE 1 MG TABLET PO SCH (08:43)
[2016-10-27] MEDS: RIFAXIMIN 550 MG TABLET PO SCH ×2 (08:43→23:02)
[2016-10-27] MEDS: ATENOLOL 50 MG TABLET PO SCH (08:43)
[2016-10-27] MEDS: MIRABEGRON 25mg TABLET PO SCH (08:43)
[2016-10-27] MEDS: SALINE FLUSH 10ml SYRINGE IVF PRN (08:44)
[2016-10-27] MEDS: AMIODARONE 200 MG TABLET PO SCH (08:44)
[2016-10-27] MEDS: SERTRALINE 100 MG TABLET PO SCH (08:44)
[2016-10-27] MEDS: DIVALPROEX 500 MG TABLET PO SCH (08:44)
[2016-10-27] MEDS: SENNA + DOCUSATE TABLET PO SCH (08:44)
[2016-10-27] MEDS: PRAMIPEXOLE 1 MG TABLET PO SCH (08:45)
[2016-10-27] MEDS: POLYETHYL GLYCOL 3350 17gm PACKET PO SCH (08:45)
[2016-10-27] MEDS ORDERED: Bisacodyl EC TAB 5 MG TABLET PO ONE (13:30)
--- NOTE | 2016-10-27 14:06 | General Surgery Consult Note ---
Consult date: 10/27/16 Attending Physician: Kay Chavira MD Reason for consult: endoscopy History of present illness: Per Dr. Winters [facility] Patient Stated Medical History Other HEENT Yes: wears glasses Congestive Heart Failure Yes Heart Murmur Yes Hypertension Yes Other Cardiology Yes: DVT Gastroesophageal Reflux Yes Disease Hx Incontinence Yes Other Musculoskeletal Yes: ARTHRITIS Sepsis Yes: right groin 2017 Surgical History: Tonsillectomy, age 6. Colonoscopy 07/02/16- adenocarcinoma- [place]. 2012 colonoscopy normal, NO diverticula - [place]. 2015 colonoscopy normal in [address] [place]. Colonoscopy, 1997, 2002, 2012. EGD and colonoscopy, 2001. Open cholecystectomy, 2001. Bilateral cataract extraction and lens implantation, 2000. Surgery for ankle spurs twice. TAHBSO with incidental appendectomy, 1983. Right Achilles tendon repair. Carpal tunnel release. Left knee replacement, 2004. Hemorrhoidectomy, 2005. Right corneal surgery. Posterior decompression and fusion at L4-L5, 2006. 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 L3-L4 decompression and extension of fusion to L2-L3, 2009. Septoplasty, 2011. Iliotibial band release of left hip, 2012. Permanent pacemaker placement, 2013. Bone marrow biopsy, 2013. L1-L2 Radical discectomy, L1-L2. Anterior lumbar interbody fusion , 2014. Back surgery, summer 2014 Family History: mother-pancreatic cancer father - CHF - Social History Smoking status: Never smoker Alcohol intake frequency: does not drink Housing: assisted living facility Does patient use chewing tobacco?: No Current residence: Assisted Living Medications Home Medications Medication Instructions Recorded Confirmed Type Divalproex [Depakote] 500 mg PO DAILY #0 11/23/13 10/23/16 History Levothyroxine Sodium 112 mcg PO ACB #0 07/05/15 10/23/16 History Polyethylene Glycol 3350 [Miralax] 17 gm PO DAILY PRN #0 06/01/16 10/23/16 History Rifaximin [Xifaxan] 550 mg PO BID #0 tab 06/01/16 10/23/16 History Atenolol 50 mg PO DAILY #0 06/30/16 10/23/16 History Mirabegron [Myrbetriq] 25 mg PO DAILY #0 tab 06/30/16 10/23/16 History predniSONE [Prednisone] 5 mg PO WB #0 06/30/16 10/23/16 History Amiodarone HCl 200 mg PO DAILY #0 07/11/16 10/23/16 History Omeprazole 20 mg PO BID #0 07/11/16 10/23/16 History Bumetanide 2 mg PO DAILY #0 08/03/16 10/23/16 History fentaNYL [Fentanyl] 1 patch TOP Q72H #0 08/03/16 10/23/16 History Bacitracin Oint 1 applic TOP QID PRN 10/23/16 10/23/16 History Carboxymethylcellulose Sodium 1 each EACH EYE TID PRN 10/23/16 10/23/16 History [Refresh Plus] Donepezil [Aricept] 5 mg PO HS 10/23/16 10/23/16 History Hydrocodone/APAP 10/325 [[place] 1 tab PO Q6H PRN 10/23/16 10/23/16 History 10/325] Hydrocortisone [Anti-Itch] 1 applic TOP QID PRN 10/23/16 10/23/16 History Melatonin/Pyridoxine HCl (B6) 5 - 10 mg PO HS 10/23/16 10/23/16 History [Melatonin 5 mg Tablet] Metolazone [Zaroxolyn] 2.5 mg PO MOWEFR 10/23/16 10/23/16 History Ondansetron [Ondansetron Odt] 8 mg PO Q8H PRN 10/23/16 10/23/16 History Ospemifene [Osphena] 60 mg PO DAILY 10/23/16 10/23/16 History Oxymetazoline Nasal [place] [Afrin 2 spray ALEXANDRO PRN PRN 10/23/16 10/23/16 History Nasal [place]] Pramipexole [Mirapex] 1 mg PO DAILY 10/23/16 10/23/16 History Saliva Substitute Mouthwash 1 applic PO BID PRN 10/23/16 10/23/16 History [Biotene Dry Mouth Oral Rinse] Sertraline [Zoloft] 100 mg PO DAILY 10/23/16 10/23/16 History Allergies Allergy/AdvReac Type Severity Reaction Status Date / Time phenylbutazone Allergy Mild HIVES Verified 08/05/16 20:08 (BUTAZOLIDIN - MANU DISC) lansoprazole AdvReac Mild DIARRHEA Verified 08/05/16 20:08 Review of Systems 10-point ROS: negative except for HPI and the following: - General General: Present: other (generalized weakness) - Eyes/Ears/Nose/Throat Eyes: Present: other (wears glasses) - Cardiovascular Cardiovascular: Present: palpitations (and murmur), irregular heart beat - Gastrointestinal Gastrointestinal: Present: other (GERD) - Musculoskeletal Musculoskeletal: Present: joint pain - Neurological Neurological: Present: muscle weakness - Psychiatric Psychiatric: Present: depression - Endocrine Endocrine: Present: thyroid problems - Hematologic/Lymphatic Hematologic/Lymphatic: Present: easy bruising, history of blood clots/DVT/PE, use of blood thinners ([place] for A-fib) Additional comments: History of colon and breast cancer - Vital Signs Last Vital Signs Temp 98.2 F 10/27/16 07:14 Pulse 63 10/27/16 08:00 Resp 16 10/27/16 07:14 BP 133/65 10/27/16 07:14 Pulse Ox 96 10/27/16 07:14 - Laboratory Result Diagrams: 10/27/16 04:51 10/27/16 04:51 Wound/Stoma/Drain Assessment - Wound Management Left Lower Forearm Wound Type: Skin Tear Wound Drainage Amount: None Left Upper Forearm Wound Type: SCAB General Surgery Results - Results Labs: 10/27/16 04:51 10/27/16 04:51 Plan: Per Dr. Winters [facility] Course Summary Disclaimer: The visit summary below is not to be considered part of the above Progress Note. Hospital Course: 10/24/16 10:25 Cait The patient was seen by me at 9:45 am. She is sitting up in the chair, still feels weak. She has difficulty getting up to the commode by herself. She has not been seen by physical therapy and occupational therapy yet this morning. On physical exam she is alert and oriented 3. She is very pleasant. CV regular rate and rhythm without murmur Lungs are clear Abdomen bowel sounds are present. There is no guarding or rebound,mildly obese Will continue her potassium supplementation both IV and by mouth. Recheck lab in the morning. Her lab work was reviewed. It is concerning that she has persistent neutropenia and thrombocytopenia as well as her known history of anemia. Her meds were reviewed by the pharmacist both fentanyl hasa 1% asociation as well as omeprazole as a 1% association with neutropenia. She was started on fentanyl recently because of her lower back pain which radiates to both hips. The hope was to decrease the amount of [place] she required for pain. He requires she is using less [place], but she is willing to stop the fentanyl patch and see what happens with her white blood cell count. In addition she is not sure why she is on omeprazole will hold it at this time. Try to locate the results from her bone marrow biopsy done in 2013. She believes that was done by either Dr. Cash or Dr. Winters 10/25/16 14:26 10/25/16 14:27 Impression: Hypokalemia with slow improvement Weakness improving as her potassium increases, she is also working with physical therapy Paroxysmal atrial fibrillation Congestive heart failure-diastolic Chronic kidney disease Essential hypertension Hypothyroidism Adenocarcinoma of the colon in June 2016-was scheduled for a follow-up colonoscopy by Dr. Winters in November History of breast cancer 2009 Dementia Chronic anemia, neutropenia, and thrombocytopenia. Was discussed with Dr. Zuniga he would like to see her as an outpatient for follow-up bone marrow biopsy. At this time will resume her omeprazole as it does not appear her thrombocytopenia is due to a drug effect. Chronic back pain Chronic anticoagulation which was discontinued secondary to a GI bleed in June - previously on eliquis Depression Chronic cirrhosis Recommendations: Continue with oral potassium replacement Recheck her potassium level later today and in the morning Will recheck her CBC in the a.m., expect she will need further outpatient evaluation of her pancytopenia. Her levothyroxine has been increased to 25 g daily during this admission secondary to a modestly increased TSH Continue to work with physical therapy and increase her activity. 10/26/16 13:58 Impression: Hypokalemia, acute. * Slowly improving though potassium today was low at 3.2. Will increase daily dose to 40 mEq starting in AM and give an additional 20 mEq po now. Recheck BMP in AM to monitor electrolytes and renal function. Generalized Weakness, acute. * Continues to improve as her potassium increases. She reports feeling stronger each day and states that her activity level is back to her baseline prior to admission. Continue to encourage participation with therapy to improve functional ability and strength. Anticipate discharge in near future. May benefit from IRU. Paroxysmal atrial fibrillation, chronic. * Continue to monitor closely on telemetry. Continue home amiodarone. Congestive heart failure-diastolic, chronic. * Monitor closely for signs of fluid overload. Daily weight remaining stable. In light of hypokalemia, continue to hold metolazone. Chronic kidney disease, stage III - GFR 60. * Continue to monitor renal function. Essential hypertension, chronic. * Blood pressure well controlled. Continue to monitor closely. Continue home atenolol. In light of potassium depletion, continue to hold Bumex. Monitor closely for signs of fluid overload. Hypothyroidism, chronic. * Continue Synthroid 125mcg daily. Recheck TSH in ~6 weeks as TSH was elevated on admission. Adenocarcinoma of the colon in June 2016. * Was scheduled for a follow-up colonoscopy by Dr. Winters in November. Dementia, chronic. * Continue home medications including Aricept Chronic anemia, neutropenia, and thrombocytopenia. * Was discussed with Dr. Zuniga he would like to see her as an outpatient for follow-up bone marrow biopsy. At this time will resume her omeprazole as it does not appear her thrombocytopenia is due to a drug effect. Chronic back pain. * Continue with [place] and fentanyl patch for pain control. Continue prednisone for pain. Chronic anticoagulation with Eliquis - ON HOLD. * Eliquis discontinued secondary to a GI bleed in June. SCDs for DVT prophylaxis. Depression, chronic. * Continue home Depakote and Zoloft. Melatonin as needed for insomnia. Chronic cirrhosis. * Continue home Rifaximin. Overactive Bladder. * Continue home mirabegron. Monitor closely for signs of infection. Sepsis Assessment - Evaluation Sepsis screening result: No Definite Risk
--- NOTE | 2016-10-27 15:14 | Consultation ---
DATE: 10/27/2016 FINDINGS Mrs. Liu is a 80-year-old female who is well known to my surgical practice. I was asked to see the patient today for potential need for repeat colonoscopy. Patient had been scheduled to undergo a colonoscopy on an outpatient basis but recently became ill. The patient recently has been experiencing increasing "weakness and shakiness." The patient was admitted to our facility as a result of her increasing weakness and finding of marked hyperkalemia upon laboratory evaluation. Today the patient states that she is feeling significantly better. She denies any recent history for melena or hematochezia. She denies any element of abdominal pain. She states that overall her bowel activity has been "working well." The patient did have a history for anemia and had recently underwent a colonoscopy and EGD in June of this year. She was found to have a polyp which was felt to have been removed in its entirety endoscopically. The polyp did return revealing "at least intramucosal adenocarcinoma". PAST MEDICAL HISTORY Performed by my nurse practitioner, Skyler Gillespie. PAST SURGICAL HISTORY Performed by my nurse practitioner, Skyler Gillespie. MEDICATIONS Performed by my nurse practitioner, Skyler Gillespie. ALLERGIES Performed by my nurse practitioner, Skyler Gillespie. SOCIAL HISTORY Performed by my nurse practitioner, Skyler Gillespie. FAMILY HISTORY Performed by my nurse practitioner, Skyler Gillespie. PHYSICAL EXAMINATION GENERAL: Mrs. Liu is a 80-year-old female who today appears quite well. She does not appear to be in acute distress. VITALS: Afebrile. Normotensive. Current vitals include temperature 98.2, pulse 63, respirations 16, blood pressure 133/65, SAO2 96% on room air. HEENT: Normocephalic. Pupils are equally round and react to light and accommodation. CHEST: Clear to auscultation bilaterally. HEART: Regular rate and rhythm. Normal S1 and S2 without gallops, murmurs or clicks. ABDOMEN: Palpation of the abdomen reveals it to be soft and nontender. I do not appreciate any evidence for hepatosplenomegaly nor abnormal masses. EXTREMITIES: Without clubbing, cyanosis, or edema. NEURO: Cranial nerves II-XII grossly intact. Patient is without focal motor or sensory deficits. LABORATORY/RADIOGRAPHIC EVALUATION I did review the patient's chart and she does have a component of pancytopenia. White count is 3.9. Hemoglobin is 11.7. Platelet count is low at 65. BMP obtained and she was found to be slightly hyperkalemic with a potassium of 3.3. I did review my prior colonoscopy report and pathology report from June of this year. She was described as having a 1.5 cm sessile polyp within the ascending colon which was felt to have been removed in its entirety endoscopically. The polyp did return revealing at least intramucosal adenocarcinoma. Margins were indeterminate. 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 PLAN It was my recommendation that we go ahead and repeat her colonoscopy while she is in the hospital. It would be easier for the patient to undergo a bowel prep while she is at our institution than at her senior living facility. I did discuss with the patient once again what a colonoscopy entailed and its associated risks which include but was not inclusive of bleeding and/or perforation. I also left my phone number upon the board in the room in case her sons wish to call me for further questions. IMELDA
[2016-10-27] MEDS ORDERED: POLYETHYL. GLYCOL 3350 BOTTLE 238 GM PO ONE (15:30)
--- NOTE | 2016-10-27 15:59 | Progress Note ---
Subjective: The patient was seen at 15:45. She was seen by Dr. Winters in today, is scheduled for a colonoscopy tomorrow. The patient reports doing well and slept well during the night. Denies fevers, chills, sweats. Denies sore throat, shortness of breath, dyspnea on exertion, cough, sputum production, chest pain. Denies nausea, vomiting or diarrhea. Is urinating without difficulty, denies dysuria. Objective Vital signs: Temperature 98.2 F 10/27/16 15:13 Pulse Rate 64 10/27/16 15:13 Respiratory Rate 20 10/27/16 15:13 Blood Pressure 133/71 10/27/16 15:13 Pulse Oximetry 99 10/27/16 15:13 Oxygen Delivery Method Room Air Weight: 176 lb 12.972 oz - Additional findings Additional findings: In general, the patient is alert and oriented 3, cooperative with exam, and in no respiratory distress. HEENT: Head is atraumatic, normocephalic, no conjunctival petechiae, no oral thrush, mucous membranes are moist and pink. Lungs: Clear to auscultation without wheezes, crackles or rhonchi CV: Regular rate and rhythm without murmur Abdomen: Soft, nontender, bowel sounds are present, there is no guarding no rebound, obese Extremities: No clubbing, no cyanosis, no edema. Skin: Warm and dry no sign of rash Neuro: Patient is alert Results - Labs CBC & Chem 7: 10/27/16 04:51 10/27/16 04:51 Assessment and Plan (1) Weakness generalized Current visit: Yes Status: Acute (2) Hypokalemia Problem details: Potassium 2.3 and 2.5 on date of admission Current visit: Yes Status: Acute 10/23/16 Present on admission. Potassium 2.5. Assessment and Plan: Impression: Hypokalemia, acute. * Slowly improving though potassium today was low at 3.8. Current dose to 40 mEq starting today. She is preparing for colonoscopy tomorrow with a bowel prep will give her additional potassium 40 meq 200this evening as well. Recheck BMP in AM to monitor electrolytes and renal function. Generalized Weakness, acute. * Continues to improve as her potassium increases. She reports feeling stronger each day and states that her activity level is back to her baseline prior to admission. Physical therapy recommends SNU-she wants to go back to assisted living-discussed with case management Paroxysmal atrial fibrillation, chronic. * Continue to monitor closely on telemetry. Continue home amiodarone. Congestive heart failure-diastolic, chronic. * Monitor closely for signs of fluid overload. Daily weight increased. In light of hypokalemia, continue to hold metolazone. Chronic kidney disease, stage III - GFR 60. * Continue to monitor renal function. Essential hypertension, chronic. * Blood pressure well controlled. Continue to monitor closely. Continue home atenolol. Monitor closely for signs of fluid overload is on Bumex 2 mg daily Hypothyroidism, chronic. * Continue Synthroid 125mcg daily. Recheck TSH in ~6 weeks as TSH was elevated on admission. Adenocarcinoma of the colon in June 2016. * Was scheduled for a follow-up colonoscopy by Dr. Winters in November- will do tomorrow am Dementia, chronic. * Continue home medications including Aricept Chronic anemia, neutropenia, and thrombocytopenia. * Was discussed with Dr. Zuniga he would like to see her as an outpatient for follow-up bone marrow biopsy. Chronic back pain. * Continue with Hollister and fentanyl patch for pain control. Continue prednisone for pain- ideally would wean off prednisone Chronic anticoagulation with Eliquis - ON HOLD. * Eliquis discontinued secondary to a GI bleed in June. SCDs for DVT prophylaxis. Depression, chronic. * Continue home Depakote and Zoloft. Melatonin as needed for insomnia. Chronic cirrhosis. * Continue home Rifaximin. Overactive Bladder. * Continue home mirabegron.. * Colonoscopy as an inpatient tomorrow. She will need an outpatient follow-up visit with Dr. Zuniga for a bone marrow biopsy. * Pt may qualify for IRU here-will check Sepsis Assessment - Evaluation Sepsis screening result: No Definite Risk Hospital Course Summary Disclaimer: The visit summary below is not to be considered part of the above Progress Note. Hospital Course: 10/24/16 10:25 Cait The patient was seen by me at 9:45 am. She is sitting up in the chair, still feels weak. She has difficulty getting up to the commode by herself. She has not been seen by physical therapy and occupational therapy yet this morning. On physical exam she is alert and oriented 3. She is very pleasant. CV regular rate and rhythm without murmur Lungs are clear Abdomen bowel sounds are present. There is no guarding or rebound,mildly obese Will continue her potassium supplementation both IV and by mouth. Recheck lab in the morning. Her lab work was reviewed. It is concerning that she has persistent neutropenia and thrombocytopenia as well as her known history of anemia. Her meds were reviewed by the pharmacist both fentanyl hasa 1% asociation as well as omeprazole as a 1% association with neutropenia. She was started on fentanyl recently because of her lower back pain which radiates to both hips. The hope was to decrease the amount of Hollister she required for pain. He requires she is using less Hollister, but she is willing to stop the fentanyl patch and see what happens with her white blood cell count. In addition she is not sure why she is on omeprazole will hold it at this time. Try to locate the results from her bone marrow biopsy done in 2013. She believes that was done by either Dr. Cash or Dr. Winters 10/25/16 14:26 10/25/16 14:27 Impression: Hypokalemia with slow improvement Weakness improving as her potassium increases, she is also working with physical therapy Paroxysmal atrial fibrillation Congestive heart failure-diastolic Chronic kidney disease Essential hypertension Hypothyroidism Adenocarcinoma of the colon in June 2016-was scheduled for a follow-up colonoscopy by Dr. Winters in November History of breast cancer 2009 Dementia Chronic anemia, neutropenia, and thrombocytopenia. Was discussed with Dr. Zuniga he would like to see her as an outpatient for follow-up bone marrow biopsy. At this time will resume her omeprazole as it does not appear her thrombocytopenia is due to a drug effect. Chronic back pain Chronic anticoagulation which was discontinued secondary to a GI bleed in June - previously on eliquis Depression Chronic cirrhosis Recommendations: Continue with oral potassium replacement Recheck her potassium level later today and in the morning Will recheck her CBC in the a.m., expect she will need further outpatient evaluation of her pancytopenia. Her levothyroxine has been increased to 25 g daily during this admission secondary to a modestly increased TSH Continue to work with physical therapy and increase her activity. 10/26/16 13:58 Impression: Hypokalemia, acute. * Slowly improving though potassium today was low at 3.2. Will increase daily dose to 40 mEq starting in AM and give an additional 20 mEq po now. Recheck BMP in AM to monitor electrolytes and renal function. Generalized Weakness, acute. * Continues to improve as her potassium increases. She reports feeling stronger each day and states that her activity level is back to her baseline prior to admission. Continue to encourage participation with therapy to improve functional ability and strength. Anticipate discharge in near future. May benefit from IRU. Paroxysmal atrial fibrillation, chronic. * Continue to monitor closely on telemetry. Continue home amiodarone. Congestive heart failure-diastolic, chronic. * Monitor closely for signs of fluid overload. Daily weight remaining stable. In light of hypokalemia, continue to hold metolazone. Chronic kidney disease, stage III - GFR 60. * Continue to monitor renal function. Essential hypertension, chronic. * Blood pressure well controlled. Continue to monitor closely. Continue home atenolol. In light of potassium depletion, continue to hold Bumex. Monitor closely for signs of fluid overload. Hypothyroidism, chronic. * Continue Synthroid 125mcg daily. Recheck TSH in ~6 weeks as TSH was elevated on admission. Adenocarcinoma of the colon in June 2016. * Was scheduled for a follow-up colonoscopy by Dr. Winters in November. Dementia, chronic. * Continue home medications including Aricept Chronic anemia, neutropenia, and thrombocytopenia. * Was discussed with Dr. Zuniga he would like to see her as an outpatient for follow-up bone marrow biopsy. At this time will resume her omeprazole as it does not appear her thrombocytopenia is due to a drug effect. Chronic back pain. * Continue with Hollister and fentanyl patch for pain control. Continue prednisone for pain. Chronic anticoagulation with Eliquis - ON HOLD. * Eliquis discontinued secondary to a GI bleed in June. SCDs for DVT prophylaxis. Depression, chronic. * Continue home Depakote and Zoloft. Melatonin as needed for insomnia. Chronic cirrhosis. * Continue home Rifaximin. Overactive Bladder. * Continue home mirabegron. Monitor closely for signs of infection. 10/27/16 16:22 Hypokalemia, acute. * Slowly improving though potassium today was low at 3.8. Current dose to 40 mEq starting today. She is preparing for colonoscopy tomorrow with a bowel prep will give her additional potassium 40 meq 200this evening as well. Recheck BMP in AM to monitor electrolytes and renal function. Generalized Weakness, acute. * Continues to improve as her potassium increases. She reports feeling stronger each day and states that her activity level is back to her baseline prior to admission. Physical therapy recommends SNU-she wants to go back to assisted living-discussed with case management Paroxysmal atrial fibrillation, chronic. * Continue to monitor closely on telemetry. Continue home amiodarone. Congestive heart failure-diastolic, chronic. * Monitor closely for signs of fluid overload. Daily weight increased. In light of hypokalemia, continue to hold metolazone. Chronic kidney disease, stage III - GFR 60. * Continue to monitor renal function. Essential hypertension, chronic. * Blood pressure well controlled. Continue to monitor closely. Continue home atenolol. Monitor closely for signs of fluid overload is on Bumex 2 mg daily Hypothyroidism, chronic. * Continue Synthroid 125mcg daily. Recheck TSH in ~6 weeks as TSH was elevated on admission. Adenocarcinoma of the colon in June 2016. * Was scheduled for a follow-up colonoscopy by Dr. Winters in November- will do tomorrow am Dementia, chronic. * Continue home medications including Aricept Chronic anemia, neutropenia, and thrombocytopenia. * Was discussed with Dr. Zuniga he would like to see her as an outpatient for follow-up bone marrow biopsy. Chronic back pain. * Continue with Hollister and fentanyl patch for pain control. Continue prednisone for pain- ideally would wean off prednisone Chronic anticoagulation with Eliquis - ON HOLD. * Eliquis discontinued secondary to a GI bleed in June. SCDs for DVT prophylaxis. Depression, chronic. * Continue home Depakote and Zoloft. Melatonin as needed for insomnia. Chronic cirrhosis. * Continue home Rifaximin. Overactive Bladder. * Continue home mirabegron.. * Colonoscopy as an inpatient tomorrow. She will need an outpatient follow-up visit with Dr. Zuniga for a bone marrow biopsy. * Pt may qualify for IRU here-will check
[2016-10-27] MEDS ORDERED: FALL RISK - PHARMACY CONSULT MC PRN (19:59)
[2016-10-27] MEDS: DONEPEZIL 5 MG TABLET PO SCH (23:02)
[2016-10-28] MEDS: MELATONIN 5 MG TABLET PO SCH ×2 (01:30→21:08)
[2016-10-28] MEDS ORDERED: FLEET PHOSPHO - SODA ENEMA 133ml PR PRN (06:00)
[2016-10-28] MEDS: OMEPRAZOLE 20 MG CAPSULE PO SCH ×2 (06:18→18:13)
[2016-10-28] MEDS: LEVOTHYROXINE 125 MCG TABLET PO SCH (06:18)
--- NOTE | 2016-10-28 06:59 | Anesthesia Preoperative Report ---
<Jay Jay Hung - Last Filed: 10/28/16 06:57> Anesthesia Preoperative Record - Date and Time Date: 10/28/16 Preoperative Diagnosis: Hypokalemia, weakness Proposed Procedure: Colonoscopy NPO Since Date: 10/28/16 NPO Since Time: 00:00 Allergies/Adverse Reactions: Allergies Allergy/AdvReac Type Severity Reaction Status Date / Time phenylbutazone Allergy Mild HIVES Verified 08/05/16 20:08 (BUTAZOLIDIN - MANU DISC) lansoprazole AdvReac Mild DIARRHEA Verified 08/05/16 20:08 - Vital Signs Vital Signs: Temperature 97.7 F 10/28/16 06:51 Pulse Rate 73 10/28/16 06:51 Respiratory Rate 16 10/28/16 06:51 Blood Pressure 168/76 H 10/28/16 06:51 Pulse Oximetry 97 10/28/16 06:51 Oxygen Delivery Method Room Air Height and Weight: Height 1.63 m Weight 80.2 kg Body Mass Index 30.3 - Medications Inpatient Medications: Current Medications Acetaminophen/Hydrocodone Bitart (Vilas 10/325) 1 tab PO Q6H PRN PRN Reason: Pain Last Admin: 10/27/16 23:02 Dose: 1 tab Amiodarone HCl (Pacerone) 200 mg PO DAILY [facility] Last Admin: 10/27/16 08:44 Dose: 200 mg Artificial Tears (Refresh Celluvisc) 1 drop EACH EYE TID PRN PRN Reason: Dry eyes Last Admin: 10/27/16 04:45 Dose: 1 drop Atenolol (Tenormin) 50 mg PO DAILY [facility] Last Admin: 10/27/16 08:43 Dose: 50 mg Bacitracin (Bacitracin Oint) 1 applic TOP QID PRN PRN Reason: Apply to affected area Bumetanide (Bumex) 2 mg PO DAILY [facility] Last Admin: 10/27/16 08:43 Dose: 2 mg Divalproex Sodium (Depakote) 500 mg PO DAILY [facility] Last Admin: 10/27/16 08:44 Dose: 500 mg Donepezil HCl (Aricept) 5 mg PO HS [facility] Last Admin: 10/27/16 23:02 Dose: 5 mg Fentanyl (Duragesic Patch) 25 mcg TD Q72H [facility] Fentanyl Citrate (Duragesic Patch Removal) 1 removal TD Q3D [facility] Last Admin: 10/25/16 11:00 Dose: Not Given Hydrocortisone (Cortizone-10 Cream) 1 applic TOP QID PRN PRN Reason: Apply to Rash Levothyroxine Sodium (Synthroid) 125 mcg PO ACB [facility] Last Admin: 10/28/16 06:18 Dose: 125 mcg Magnesium Hydroxide (Mom) 30 ml PO BID PRN PRN Reason: Constipation Melatonin (Melatonin) 5 - 10 mg PO HS [facility] Last Admin: 10/28/16 01:30 Dose: Not Given Metolazone (Zaroxolyn) 2.5 mg PO MOWEFR [facility] Last Admin: 10/27/16 08:43 Dose: 2.5 mg Mirabegron (Myrbetriq) 25 mg PO DAILY [facility] Last Admin: 10/27/16 08:43 Dose: 25 mg Ospemifene [Osphena] (60mg Tablet) 60 mg PO DAILY [facility] Omeprazole (Prilosec) 20 mg PO ACBID [facility] Last Admin: 10/28/16 06:18 Dose: 20 mg Ondansetron HCl (Zofran Po) 8 mg PO Q8H PRN PRN Reason: Nausea &/or vomiting Oxymetazoline HCl (Afrin Nasal [place]) 2 spray EA NOSTRIL PRN PRN Polyethylene Glycol (Miralax) 17 gm PO DAILY [facility] Last Admin: 10/27/16 08:45 Dose: Not Given Potassium Chloride (Micro-K) 40 meq PO [facility] Last Admin: 10/27/16 08:42 Dose: 40 meq Pramipexole Dihydrochloride (Mirapex) 1 mg PO [facility] Last Admin: 10/27/16 08:45 Dose: 1 mg Prednisone (Deltasone) 15 mg PO DAILY [facility] PRN Reason: Taper Stop: 10/30/16 07:59 Last Admin: 10/27/16 08:42 Dose: 15 mg Rifaximin (Xifaxan) 550 mg PO BID [facility] Last Admin: 10/27/16 23:02 Dose: 550 mg Saliva Substitute (Biotene Dry Mouth Oral Rinse) 473 ml PO BID PRN PRN Reason: Dry mouth Senna/Docusate Sodium (Senna Plus Tablet) 1 tab PO DAILY [facility] Last Admin: 10/27/16 08:44 Dose: 1 tab Sertraline HCl (Zoloft) 100 mg PO DAILY [facility] Last Admin: 10/27/16 08:44 Dose: 100 mg Sodium Chloride (Iv Flush) 10 - 80 ml IVF PRN PRN PRN Reason: Flushing Last Admin: 10/27/16 08:44 Dose: 10 ml Sodium Phosphate (Fleet Enema) 1 enema AL PRN PRN Last Admin: 10/28/16 06:15 Dose: 1 enema Home Medications: Home Medications Medication Instructions Recorded Confirmed Type Divalproex [Depakote] 500 mg PO DAILY #0 11/23/13 10/23/16 History Levothyroxine Sodium 112 mcg PO ACB #0 07/05/15 10/23/16 History Polyethylene Glycol 3350 [Miralax] 17 gm PO DAILY PRN #0 06/01/16 10/23/16 History Rifaximin [Xifaxan] 550 mg PO BID #0 tab 06/01/16 10/23/16 History Atenolol 50 mg PO DAILY #0 06/30/16 10/23/16 History Mirabegron [Myrbetriq] 25 mg PO DAILY #0 tab 06/30/16 10/23/16 History predniSONE [Prednisone] 5 mg PO WB #0 06/30/16 10/23/16 History Amiodarone HCl 200 mg PO DAILY #0 07/11/16 10/23/16 History Omeprazole 20 mg PO BID #0 07/11/16 10/23/16 History Bumetanide 2 mg PO DAILY #0 08/03/16 10/23/16 History fentaNYL [Fentanyl] 1 patch TOP Q72H #0 08/03/16 10/23/16 History Bacitracin Oint 1 applic TOP QID PRN 10/23/16 10/23/16 History Carboxymethylcellulose Sodium 1 each EACH EYE TID PRN 10/23/16 10/23/16 History [Refresh Plus] Donepezil [Aricept] 5 mg PO HS 10/23/16 10/23/16 History Hydrocodone/APAP 10/325 [Vilas 1 tab PO Q6H PRN 10/23/16 10/23/16 History 10/325] Hydrocortisone [Anti-Itch] 1 applic TOP QID PRN 10/23/16 10/23/16 History Melatonin/Pyridoxine HCl (B6) 5 - 10 mg PO HS 10/23/16 10/23/16 History [Melatonin 5 mg Tablet] Metolazone [Zaroxolyn] 2.5 mg PO MOWEFR 10/23/16 10/23/16 History Ondansetron [Ondansetron Odt] 8 mg PO Q8H PRN 10/23/16 10/23/16 History Ospemifene [Osphena] 60 mg PO DAILY 10/23/16 10/23/16 History Oxymetazoline Nasal [place] [Afrin 2 spray ALEXANDRO PRN PRN 10/23/16 10/23/16 History Nasal [place]] Pramipexole [Mirapex] 1 mg PO DAILY 10/23/16 10/23/16 History Saliva Substitute Mouthwash 1 applic PO BID PRN 10/23/16 10/23/16 History [Biotene Dry Mouth Oral Rinse] Sertraline [Zoloft] 100 mg PO DAILY 10/23/16 10/23/16 History Is Patient on Beta Jaylene?: Yes Beta Jaylene Last Dose Date/Time: 10/28/16 - Medical History Cardiovascular: Reports: Arrhythmia, Hypertension Gastrointestional: Reports: Gastroesophageal Reflux Disease - Surgical History HEENT Surgeries: Reports: Tonsillectomy Cardiac Surgeries/Treatments: Reports: Cardiac Catheterization, Pacemaker Respiratory Surgery/Treatments: Reports: BiPAP Use GI Surgery/Treatments: Reports: Cholecystectomy Musculoskeletal Surgery/Tx: Reports: Total Knee Replacement (LEFT) Reproductive Surgery/Treatment: Reports: Hysterectomy, Lumpectomy (LEFT) Anesthesia Reactions: None Hx Family Anesthesia Reaction: No History of Motion Sickness: No - Social History Smoking Status: Never smoker Hx Chewing Tobacco Use: No Second Hand Exposure: No Substance Use Type: does not use Alcohol Intake Frequency: does not drink - Pertinent Findings Laboratory: CBC and BMP 10/27/16 04:51 10/27/16 04:51 EKG Rhythm: Normal Sinus Rhythm - Physical Exam Respiratory Exam: Present: lungs clear Cardiovascular Exam: Present: regular rate and rhythm - Airway Assessment Mallampati Score: II TMD: 3 Fingerbreadths Neck Extension: fair Overall Assessment: no airway concerns - ASA ASA Score: 3 - Plan Anesthesia: General TIVA - Discussion Discussion: Discussed risks/options/alternatives of anesthesia and questions answered. Patient consents. Nursing pain assessment noted. Present for Discussion: family member Attestation Statement: Prior to the delivery of any anesthetic medication, I examined the patient, developed the plan, obtained the patient's consent and discussed the risk and benefits of the procedure with the patient/guardian. - Additional Information Seen by Anesthesia: Yes <Herbie Kendall - Last Filed: 10/28/16 07:08> Anesthesia Preoperative Record - Date and Time Date: 10/28/16 Preoperative Diagnosis: Hypokalemia, weakness - Vital Signs Vital Signs: Temperature 97.7 F 10/28/16 06:51 Pulse Rate 67 10/28/16 06:59 Respiratory Rate 16 10/28/16 06:51 Blood Pressure 168/76 H 10/28/16 06:51 Pulse Oximetry 97 10/28/16 06:51 Oxygen Delivery Method Room Air Height and Weight: Height 1.63 m Weight 80.2 kg Body Mass Index 30.3 - Medications Inpatient Medications: Current Medications Acetaminophen/Hydrocodone Bitart (Vilas 10/325) 1 tab PO Q6H PRN PRN Reason: Pain Last Admin: 10/27/16 23:02 Dose: 1 tab Amiodarone HCl (Pacerone) 200 mg PO DAILY [facility] Last Admin: 10/27/16 08:44 Dose: 200 mg Artificial Tears (Refresh Celluvisc) 1 drop EACH EYE TID PRN PRN Reason: Dry eyes Last Admin: 10/27/16 04:45 Dose: 1 drop Atenolol (Tenormin) 50 mg PO DAILY [facility] Last Admin: 10/27/16 08:43 Dose: 50 mg Bacitracin (Bacitracin Oint) 1 applic TOP QID PRN PRN Reason: Apply to affected area Bumetanide (Bumex) 2 mg PO DAILY [facility] Last Admin: 10/27/16 08:43 Dose: 2 mg Divalproex Sodium (Depakote) 500 mg PO DAILY [facility] Last Admin: 10/27/16 08:44 Dose: 500 mg Donepezil HCl (Aricept) 5 mg PO HS [facility] Last Admin: 10/27/16 23:02 Dose: 5 mg Fentanyl (Duragesic Patch) 25 mcg TD Q72H [facility] Fentanyl Citrate (Duragesic Patch Removal) 1 removal TD Q3D [facility] Last Admin: 10/25/16 11:00 Dose: Not Given Hydrocortisone (Cortizone-10 Cream) 1 applic TOP QID PRN PRN Reason: Apply to Rash Lactated Ringer's (Lactated Ringers) 1,000 mls @ 50 mls/hr IV .Q20H [facility] Last Admin: 10/28/16 06:58 Dose: 50 mls/hr Levothyroxine Sodium (Synthroid) 125 mcg PO ACB [facility] Last Admin: 10/28/16 06:18 Dose: 125 mcg Magnesium Hydroxide (Mom) 30 ml PO BID PRN PRN Reason: Constipation Melatonin (Melatonin) 5 - 10 mg PO HS [facility] Last Admin: 10/28/16 01:30 Dose: Not Given Metolazone (Zaroxolyn) 2.5 mg PO MOWEFR [facility] Last Admin: 10/27/16 08:43 Dose: 2.5 mg Mirabegron (Myrbetriq) 25 mg PO DAILY [facility] Last Admin: 10/27/16 08:43 Dose: 25 mg Ospemifene [Osphena] (60mg Tablet) 60 mg PO DAILY [facility] Omeprazole (Prilosec) 20 mg PO ACBID [facility] Last Admin: 10/28/16 06:18 Dose: 20 mg Ondansetron HCl (Zofran Po) 8 mg PO Q8H PRN PRN Reason: Nausea &/or vomiting Oxymetazoline HCl (Afrin Nasal [place]) 2 spray EA NOSTRIL PRN PRN Polyethylene Glycol (Miralax) 17 gm PO DAILY [facility] Last Admin: 10/27/16 08:45 Dose: Not Given Potassium Chloride (Micro-K) 40 meq PO [facility] Last Admin: 10/27/16 08:42 Dose: 40 meq Pramipexole Dihydrochloride (Mirapex) 1 mg PO [facility] Last Admin: 10/27/16 08:45 Dose: 1 mg Prednisone (Deltasone) 15 mg PO DAILY [facility] PRN Reason: Taper Stop: 10/30/16 07:59 Last Admin: 10/27/16 08:42 Dose: 15 mg Rifaximin (Xifaxan) 550 mg PO BID [facility] Last Admin: 10/27/16 23:02 Dose: 550 mg Saliva Substitute (Biotene Dry Mouth Oral Rinse) 473 ml PO BID PRN PRN Reason: Dry mouth Senna/Docusate Sodium (Senna Plus Tablet) 1 tab PO DAILY [facility] Last Admin: 10/27/16 08:44 Dose: 1 tab Sertraline HCl (Zoloft) 100 mg PO DAILY [facility] Last Admin: 10/27/16 08:44 Dose: 100 mg Sodium Chloride (Iv Flush) 10 - 80 ml IVF PRN PRN PRN Reason: Flushing Last Admin: 10/27/16 08:44 Dose: 10 ml Sodium Phosphate (Fleet Enema) 1 enema AL PRN PRN Last Admin: 10/28/16 06:15 Dose: 1 enema Beta Jaylene Last Dose Date/Time: 10/27/16 @0900 - Pertinent Findings Laboratory: CBC and BMP 10/27/16 04:51 10/27/16 04:51 - Physical Exam Cardiovascular Exam: Present: pacemaker - Discussion Discussion: Discussed risks/options/alternatives of anesthesia and questions answered. Patient consents. Nursing pain assessment noted. Attestation Statement: Prior to the delivery of any anesthetic medication, I examined the patient, developed the plan, obtained the patient's consent and discussed the risk and benefits of the procedure with the patient/guardian.
[2016-10-28] MEDS ORDERED: LR 1,000 ML IV SCH (07:00)
[2016-10-28] MEDS ORDERED: PROPOFOL 500 MG/50 ML VIAL IV ONE ×2 (07:18→08:04)
--- NOTE | 2016-10-28 08:13 | General Surgery Procedure Note ---
Date of Procedure: 10/28/16 Surgeon: Vianey Postoperative Diagnosis: colon polyps, history of colon cancer Procedure: colonoscopy with snare and cold forceps polypectomy Estimated Blood Loss: See Anesthesia Record.
--- NOTE | 2016-10-28 09:02 | Anesthesia Postoperative Note ---
- Date and Time Date: 10/28/16 Time: 09:01 - Status Patient Participated in Evaluation: Patient Participated in Person Vital Signs: Temperature 98.2 F 10/28/16 08:15 Pulse Rate 68 10/28/16 08:55 Respiratory Rate 14 10/28/16 08:55 Blood Pressure 168/70 H 10/28/16 08:55 Pulse Oximetry 98 10/28/16 08:55 Oxygen Delivery Method Room Air Oxygen Flow Rate 5 Respiratory Function: Airway Patent Cardiovascular Function: Regular Pulse EKG Rhythm: Normal Sinus Rhythm Mental Status: Alert and Oriented Pain Intensity: 0 Hydration: IV Infusing Complications During Recover: None Apparent - Follow-Up Instructions Instructions: Per Surgeon
[2016-10-28] MEDS: HYDROCODONE/APAP 10 MG/325 MG TABLET PO PRN ×2 (09:54→20:14)
[2016-10-28] MEDS: MIRABEGRON 25mg TABLET PO SCH (09:54)
[2016-10-28] MEDS: PRAMIPEXOLE 1 MG TABLET PO SCH (09:54)
[2016-10-28] MEDS: DIVALPROEX 500 MG TABLET PO SCH (09:54)
[2016-10-28] MEDS: BUMETANIDE 1 MG TABLET PO SCH (09:54)
[2016-10-28] MEDS: SERTRALINE 100 MG TABLET PO SCH (09:54)
[2016-10-28] MEDS: AMIODARONE 200 MG TABLET PO SCH (09:55)
[2016-10-28] MEDS: RIFAXIMIN 550 MG TABLET PO SCH ×2 (09:55→21:08)
[2016-10-28] MEDS: ATENOLOL 50 MG TABLET PO SCH (09:55)
[2016-10-28] MEDS: POLYETHYL GLYCOL 3350 17gm PACKET PO SCH (09:56)
[2016-10-28] MEDS: SENNA + DOCUSATE TABLET PO SCH (10:00)
[2016-10-28] MEDS: SALINE FLUSH 10ml SYRINGE IVF PRN (10:01)
[2016-10-28] MEDS: PredniSONE 5 MG TABLET PO SCH (10:05)
--- NOTE | 2016-10-28 12:53 | Progress Note ---
<Patricia Gaffney - Last Filed: 10/28/16 12:47> Subjective: Bhavna is seen today in follow up for her acute hypokalemia and generalized weakness. She denies any current complaints including no chest pain, shortness of breath, abdominal pain, nausea, vomiting or dizziness. She underwent a colonoscopy by Dr. Winters today with results pending. She appears very tired and states that she is still very sleepy following the medications for the procedure. She is preparing to order some lunch and her bowels are moving. On exam, she is sitting in her recliner, sleeping. She arouses easily with soft voice stimuli but quickly drifts back to sleep and arouses with questions and touch. She is alert and orientated x3 and in no apparent distress. Cardiac exam reveals regular rate and rhythm and review of telemetry reveals atrial pacing. Lungs are diminished bilaterally most likely from poor inspiratory effort due to fatigue. She is reminded and encouraged to do her incentive spirometry. Abdomen is soft, nontender with active bowel sounds. 1+ pedal edema noted to bilateral lower extremities. This this morning revealed pancytopenia with new leukopenia with WBC at 3.9, persistent anemia with hemoglobin at 11.7 and slight improvement in thrombocytopenia with platelets at 65. BMP revealed new hypernatremia with sodium 146, hypokalemia with potassium at 3.3, BUN 23, SCr 0.9 and glucose 78. Objective Vital signs: Temperature 98.0 F 10/28/16 11:50 Pulse Rate 61 10/28/16 11:50 Respiratory Rate 12 10/28/16 11:50 Blood Pressure 128/63 10/28/16 11:50 Pulse Oximetry 98 10/28/16 11:50 Oxygen Delivery Method Room Air Oxygen Flow Rate 5 Weight: 172 lb 6.424 oz Comments: tele - paced rhythm - Constitutional Present: no acute distress, well nourished, well developed, cooperative, somnolent - Routine HEENT Exam Head: Present: normocephalic, atraumatic Eye: Present: PERRL. Absent: conjunctival icterus ENT: Present: mucous membranes moist - Routine Respiratory Exam Present: decreased breath sounds, CTA bilaterally. Absent: stridor, wheezes, crackles Comments: poor inspiratory effort due to somnolence - Routine Cardiovascular Exam Present: S1, S2 - Routine Abdominal Exam Present: soft, normoactive bowel sounds, non tender - Routine Extremities Exam Present: edema (1+ pedal), pulses intact. Absent: calf tenderness - Routine Back/Spine/Pelvis Exam Back/Spine: Present: full ROM. Absent: vertebral tenderness - Routine Musculoskeletal Exam Musculoskeletal: Present: no clubbing or cyanosis, moving extremities well - Routine Skin Exam Present: intact, dry, warm Comments: afebrile - Routine Neurological Exam Present: alert, oriented X3, moving all extremities, normal speech. Absent: facial asymmetry - Routine Lymphatic Exam Lymphatic: Absent: lymphedema - Routine Psychiatric Exam Present: cooperative Comments: somnolent Results - Labs CBC & Chem 7: 10/27/16 04:51 10/27/16 04:51 Assessment and Plan (1) Weakness generalized Current visit: Yes Status: Acute (2) Hypokalemia Problem details: Potassium 2.3 and 2.5 on date of admission Current visit: Yes Status: Acute 10/23/16 Present on admission. Potassium 2.5. DVT Prophylaxis: SCD's Resuscitation Status: Do Not Resuscitate Assessment and Plan: 10/28/16 - Gulshan. Impression: Hypokalemia, acute. * Decrease in potassium today at 3.3. In light of current hypernatremia with sodium at 146 and hypokalemia, will give 1L NS with 40 KCl x 1 bag now and continue to monitor electrolytes and renal function with repeat BMP in AM. Will continue oral potassium as ordered. Generalized Weakness, acute. * Continues to improve as her potassium increases. She reports feeling stronger each day and states that her activity level is back to her baseline prior to admission. Physical therapy recommends SNU-she wants to go back to assisted living-discussed with case management. Will obtain IRU screen as she would greatly benefit for intensive therapy. Pancytopenia, acute. * CBC today showed WBC 3.9, persistent anemia with slight improvement in hemoglobin at 11.7 and persistent thrombocytopenia with platelets at 65. Will continue to monitor closely and repeat CBC in AM to monitor blood counts. Recommend follow up with Dr. Zuniga as outpatient for bone marrow biopsy. Paroxysmal atrial fibrillation, chronic. * No change. Continue to monitor closely on telemetry. Continue home amiodarone. Congestive heart failure-diastolic, chronic. * No change. Continue home bumex 2mg daily. Continue to monitor closely for signs of fluid overload and daily weights. In light of hypokalemia, continue to hold metolazone. Chronic kidney disease, stage III - GFR 60. * No change. Continue to monitor renal function. Renal function stable. Repeat BMP in AM to monitor electrolytes and renal function. Essential hypertension, chronic. * No change. Blood pressure well controlled. Continue to monitor closely. Continue home atenolol. Monitor closely for signs of fluid overload. She is on Bumex 2 mg daily. Hypothyroidism, chronic. * No change. Continue Synthroid 125mcg daily. Recheck TSH in ~6 weeks as TSH was elevated on admission. Adenocarcinoma of the colon in June 2016. * Underwent colonoscopy by Dr. Winters today, 10/28. Results and recommendations pending. Appreciate Dr. Winters's time and expertise. Dementia, chronic. * No change. Continue home medications including Aricept Chronic back pain. * No change. Continue with Randle and fentanyl patch for pain control. Continue prednisone for pain- ideally would wean off prednisone. Continue with bowel motivation in light of narcotics. Chronic anticoagulation with Eliquis - ON HOLD. * No change. Eliquis discontinued secondary to a GI bleed in June. SCDs for DVT prophylaxis. Depression, chronic. * No change. Continue home Depakote and Zoloft. Melatonin as needed for insomnia. Chronic cirrhosis. * No change. Continue home Rifaximin. Overactive Bladder. * No change. Continue home mirabegron. - Time spent with patient 25 - 35 minutes Sepsis Assessment - Evaluation Sepsis screening result: No Definite Risk Hospital Course Summary Disclaimer: The visit summary below is not to be considered part of the above Progress Note. Hospital Course: 10/24/16 10:25 Cait The patient was seen by me at 9:45 am. She is sitting up in the chair, still feels weak. She has difficulty getting up to the commode by herself. She has not been seen by physical therapy and occupational therapy yet this morning. On physical exam she is alert and oriented 3. She is very pleasant. CV regular rate and rhythm without murmur Lungs are clear Abdomen bowel sounds are present. There is no guarding or rebound,mildly obese Will continue her potassium supplementation both IV and by mouth. Recheck lab in the morning. Her lab work was reviewed. It is concerning that she has persistent neutropenia and thrombocytopenia as well as her known history of anemia. Her meds were reviewed by the pharmacist both fentanyl hasa 1% asociation as well as omeprazole as a 1% association with neutropenia. She was started on fentanyl recently because of her lower back pain which radiates to both hips. The hope was to decrease the amount of Randle she required for pain. He requires she is using less Randle, but she is willing to stop the fentanyl patch and see what happens with her white blood cell count. In addition she is not sure why she is on omeprazole will hold it at this time. Try to locate the results from her bone marrow biopsy done in 2013. She believes that was done by either Dr. Cash or Dr. Winters 10/25/16 14:26 10/25/16 14:27 Impression: Hypokalemia with slow improvement Weakness improving as her potassium increases, she is also working with physical therapy Paroxysmal atrial fibrillation Congestive heart failure-diastolic Chronic kidney disease Essential hypertension Hypothyroidism Adenocarcinoma of the colon in June 2016-was scheduled for a follow-up colonoscopy by Dr. Winters in November History of breast cancer 2009 Dementia Chronic anemia, neutropenia, and thrombocytopenia. Was discussed with Dr. Zuniga he would like to see her as an outpatient for follow-up bone marrow biopsy. At this time will resume her omeprazole as it does not appear her thrombocytopenia is due to a drug effect. Chronic back pain Chronic anticoagulation which was discontinued secondary to a GI bleed in June - previously on eliquis Depression Chronic cirrhosis Recommendations: Continue with oral potassium replacement Recheck her potassium level later today and in the morning Will recheck her CBC in the a.m., expect she will need further outpatient evaluation of her pancytopenia. Her levothyroxine has been increased to 25 g daily during this admission secondary to a modestly increased TSH Continue to work with physical therapy and increase her activity. 10/26/16 13:58 Impression: Hypokalemia, acute. * Slowly improving though potassium today was low at 3.2. Will increase daily dose to 40 mEq starting in AM and give an additional 20 mEq po now. Recheck BMP in AM to monitor electrolytes and renal function. Generalized Weakness, acute. * Continues to improve as her potassium increases. She reports feeling stronger each day and states that her activity level is back to her baseline prior to admission. Continue to encourage participation with therapy to improve functional ability and strength. Anticipate discharge in near future. May benefit from IRU. Paroxysmal atrial fibrillation, chronic. * Continue to monitor closely on telemetry. Continue home amiodarone. Congestive heart failure-diastolic, chronic. * Monitor closely for signs of fluid overload. Daily weight remaining stable. In light of hypokalemia, continue to hold metolazone. Chronic kidney disease, stage III - GFR 60. * Continue to monitor renal function. Essential hypertension, chronic. * Blood pressure well controlled. Continue to monitor closely. Continue home atenolol. In light of potassium depletion, continue to hold Bumex. Monitor closely for signs of fluid overload. Hypothyroidism, chronic. * Continue Synthroid 125mcg daily. Recheck TSH in ~6 weeks as TSH was elevated on admission. Adenocarcinoma of the colon in June 2016. * Was scheduled for a follow-up colonoscopy by Dr. Winters in November. Dementia, chronic. * Continue home medications including Aricept Chronic anemia, neutropenia, and thrombocytopenia. * Was discussed with Dr. Zuniga he would like to see her as an outpatient for follow-up bone marrow biopsy. At this time will resume her omeprazole as it does not appear her thrombocytopenia is due to a drug effect. Chronic back pain. * Continue with Randle and fentanyl patch for pain control. Continue prednisone for pain. Chronic anticoagulation with Eliquis - ON HOLD. * Eliquis discontinued secondary to a GI bleed in June. SCDs for DVT prophylaxis. Depression, chronic. * Continue home Depakote and Zoloft. Melatonin as needed for insomnia. Chronic cirrhosis. * Continue home Rifaximin. Overactive Bladder. * Continue home mirabegron. Monitor closely for signs of infection. 10/28/16 13:08 Impression: Hypokalemia, acute. * Decrease in potassium today at 3.3. In light of current hypernatremia with sodium at 146 and hypokalemia, will give 1L NS with 40 KCl x 1 bag now and continue to monitor electrolytes and renal function with repeat BMP in AM. Will continue oral potassium as ordered. Generalized Weakness, acute. * Continues to improve as her potassium increases. She reports feeling stronger each day and states that her activity level is back to her baseline prior to admission. Physical therapy recommends SNU-she wants to go back to assisted living-discussed with case management. Will obtain IRU screen as she would greatly benefit for intensive therapy. Pancytopenia, acute. * CBC today showed WBC 3.9, persistent anemia with slight improvement in hemoglobin at 11.7 and persistent thrombocytopenia with platelets at 65. Will continue to monitor closely and repeat CBC in AM to monitor blood counts. Recommend follow up with Dr. Zuniga as outpatient for bone marrow biopsy. Paroxysmal atrial fibrillation, chronic. * No change. Continue to monitor closely on telemetry. Continue home amiodarone. Congestive heart failure-diastolic, chronic. * No change. Continue home bumex 2mg daily. Continue to monitor closely for signs of fluid overload and daily weights. In light of hypokalemia, continue to hold metolazone. Chronic kidney disease, stage III - GFR 60. * No change. Continue to monitor renal function. Renal function stable. Repeat BMP in AM to monitor electrolytes and renal function. Essential hypertension, chronic. * No change. Blood pressure well controlled. Continue to monitor closely. Continue home atenolol. Monitor closely for signs of fluid overload. She is on Bumex 2 mg daily. Hypothyroidism, chronic. * No change. Continue Synthroid 125mcg daily. Recheck TSH in ~6 weeks as TSH was elevated on admission. Adenocarcinoma of the colon in June 2016. * Underwent colonoscopy by Dr. Winters today, 10/28. Results and recommendations pending. Appreciate Dr. Winters's time and expertise. Dementia, chronic. * No change. Continue home medications including Aricept Chronic back pain. * No change. Continue with Randle and fentanyl patch for pain control. Continue prednisone for pain- ideally would wean off prednisone. Continue with bowel motivation in light of narcotics. Chronic anticoagulation with Eliquis - ON HOLD. * No change. Eliquis discontinued secondary to a GI bleed in June. SCDs for DVT prophylaxis. Depression, chronic. * No change. Continue home Depakote and Zoloft. Melatonin as needed for insomnia. Chronic cirrhosis. * No change. Continue home Rifaximin. Overactive Bladder. * No change. Continue home mirabegron. <Kay Chavira - Last Filed: 10/28/16 14:41> Objective Vital signs: Temperature 98.0 F 10/28/16 12:50 Pulse Rate 79 10/28/16 12:50 Respiratory Rate 12 10/28/16 12:50 Blood Pressure 132/64 10/28/16 12:50 Pulse Oximetry 96 10/28/16 12:50 Oxygen Delivery Method Room Air Oxygen Flow Rate 5 Results - Labs CBC & Chem 7: 10/28/16 12:52 10/28/16 12:52 Labs: Laboratory Tests 10/24/16 10/25/16 10/26/16 04:34 04:43 04:41 Potassium 2.7 L* 3.3 L 3.2 L Magnesium 1.7 1.8 Specimen Hemolysis < 15 < 15 10/27/16 10/28/16 10/28/16 04:51 12:46 12:52 Potassium 3.3 L 2.9 L* Magnesium Pending Specimen Hemolysis 21 Assessment and Plan (1) Weakness generalized Current visit: Yes Status: Acute (2) Hypokalemia Problem details: Potassium 2.3 and 2.5 on date of admission Current visit: Yes Status: Acute 10/28/16 14:32 I have independently evaluated and examined this patient. I reviewed the chart, the patient's history, and the INSTRUCTIONAL SYSTEMS DESIGN CONSULTANT/PA's documented findings as above. We discussed and formulated the assessment and plan as above with additions as below. The patient was seen 14:10 at with son at bedside. She is back from her colonoscopy. She had good results with her bowel prep. Results of the colonoscopy are pending. The patient reports doing well and slept well during the night. Denies fevers, chills, sweats. Denies sore throat, shortness of breath, dyspnea on exertion, cough, sputum production, chest pain. Denies nausea, vomiting. In general, the patient is alert and oriented 3, cooperative with exam, and in no respiratory distress. HEENT: Head is atraumatic, normocephalic, no conjunctival petechiae, no oral thrush, mucous membranes are moist and pink. Lungs: Clear to auscultation without wheezes, crackles or rhonchi CV: Regular rate and rhythm without murmur Abdomen: Soft, nontender, bowel sounds are present, there is no guarding no rebound. Extremities: No clubbing, no cyanosis, no edema. Skin: Warm and dry no sign of rash Neuro: Patient is alert Her K is down again to 2.9 after her bowel prep- Mg is pending. Will replace with IV and po KCL. Discussed with case management- would prefer placement here in IRU if possible secondary to her medical complexities. If she does go to IRU, will see if Dr. Zuniga could see her and do a BM biopsy while here to assess her pancytopenia. She does have an appt with Dr. Brown on Thursday- he may have some skilled nursing suggestions for her hypokalemia. She is weaning down to prednsione 5 mg for her back pain- ideally would try to discontinue oral steroids. Will check a urine histoplasma antigen in light of her pancytopenia and halfway steroid use. 10/28/16 14:35 Hospital Course Summary Disclaimer: The visit summary below is not to be considered part of the above Progress Note.
[2016-10-28] MEDS ORDERED: POTASSIUM CHLORIDE INJ 40 MEQ in NS 1,000 ML IV SCH (13:15)
--- NOTE | 2016-10-28 16:46 | Operative Note ---
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 PROCEDURE Colonoscopy with snare polypectomies. ANESTHESIA TIVA BRIEF HISTORY/INDICATIONS Mrs. Liu is a 80-year-old female who earlier this year had underwent a colonoscopy and was found to have a couple of polyps. One of these polyps located within the mid ascending colon was sessile in nature and endoscopically was removed via snare polypectomy technique. Pathology did return revealing at least intramucosal adenocarcinoma arising out of a tubulovillous adenoma. Margins were somewhat indeterminate. The patient does have significant medical comorbidities. It was elected not to proceed with surgical resection but to follow the patient at a short-term interval/followup colonoscopy. Patient presents today to undergo this procedure. For completeness please refer to notes included in the patient's chart. FINDINGS Upon colonoscopy the patient was found to have a sessile polyp near the ileocecal valve region that was on the order of about 8 mm in diameter and removed via snare polypectomy technique. Within the mid ascending colon region , the patient was found to have an additional lesion. One could see an intramucosal "whitish nodule-like area. This area was also on the order of about 8 mm in diameter. This area of concern was removed via combination of a snare polypectomy technique as well as a cold biopsy technique. Attempt was made at injecting saline beneath the mucosa and raising the mucosa off of the underlying colonic wall so that a submucosal resection could be accomplished. This however was to no avail. This technique however, did not work as well for it appeared that the nodule did extend into the underlying mucosa. I did not appreciate any evidence for angiodysplastic lesions, diverticula or avtar malignancies. DESCRIPTION OF PROCEDURE After informed consent was obtained, the patient was brought to the endoscopy suite and placed in the left lateral cubitus position. The patient subsequently underwent total intravenous anesthesia by the nurse safety fire boss per my request. Formal time-out was then completed. Next, digital rectal examination was performed. Normal sphincter tone. No rectal masses were appreciated. An Olympus colonoscope was inserted in the anus and advanced through the lumen of the colon under direct visualization at all times until the cecum was ascertained. Triangulation of teniae coli and ileocecal valve were identified. Scope was slowly withdrawn. Near the ileocecal valve region, the patient was found to have a benign-appearing sessile polyp that was on the order of about 8 mm in diameter. A snare was placed around this polyp and the polyp was transected in its entirety and retrieved for pathologic evaluation. Scope was withdrawn back to the mid ascending colon region. As stated above, one could see a whitish-like nodule that was on the order of about 8 mm in diameter extending out from the mucosa and appeared to be rise arising from within the submucosal region. I did attempt to raise this lesion off of underlying mucosa. An injector needle was placed in a submucosal fashion adjacent to this nodule-like lesion. Saline was then injected in a submucosal fashion. The surrounding mucosa did lift upward into the lumen but the nodule itself did not lift upward off of the underlying mucosa as I had hoped. Therefore it appeared that the nodule was extending into the underlying submucosa. Snare was placed around this nodule-like lesion and the nodule was transected and grasped via cold biopsy technique and removed and submitted for pathologic evaluation. Next utilizing the cold biopsy forceps, the surrounding mucosa was also resected circumferentially and placed within the same container. Colonoscope was then slowly withdrawn. No additional/synchronous polyps were identified. I did not appreciate any evidence for angiodysplastic lesions, diverticula or avtar malignancies. Once the scope was withdrawn back to the rectal vault, an attempt was made at performing a J-maneuver. The patient had a fairly small rectal vault. Apparently the patient had had a prior perforation of her rectum by a different endoscopist while attempting the J-maneuver. Therefore I elected not to proceed with a reattempt of the J- maneuver and the scope was withdrawn back to the anal verge. One could see some internal hemorrhoids but no worrisome perianal pathology was noted. No abnormalities were noted within the rectal vault. One could see a scar-like area where the patient likely had had a prior perforation of her rectum during prior colonoscopy. Scope was removed from the patient's anus. The patient tolerated the procedure without difficulty and was sent back to the preop area in stable condition. IMELDA
[2016-10-28] MEDS: DONEPEZIL 5 MG TABLET PO SCH (21:08)
[2016-10-29] MEDS: SALINE FLUSH 10ml SYRINGE IVF PRN (00:30)
[2016-10-29] MEDS: HYDROCODONE/APAP 10 MG/325 MG TABLET PO PRN ×3 (05:39→17:00)
[2016-10-29] MEDS: LEVOTHYROXINE 125 MCG TABLET PO SCH (05:40)
[2016-10-29] MEDS: OMEPRAZOLE 20 MG CAPSULE PO SCH ×2 (05:40→16:57)
[2016-10-29] MEDS: MIRABEGRON 25mg TABLET PO SCH (08:22)
[2016-10-29] MEDS: SENNA + DOCUSATE TABLET PO SCH (08:23)
[2016-10-29] MEDS: PRAMIPEXOLE 1 MG TABLET PO SCH (08:23)
[2016-10-29] MEDS: PredniSONE 5 MG TABLET PO SCH (08:23)
[2016-10-29] MEDS: BUMETANIDE 1 MG TABLET PO SCH (08:23)
[2016-10-29] MEDS: POLYETHYL GLYCOL 3350 17gm PACKET PO SCH (08:23)
[2016-10-29] MEDS: DIVALPROEX 500 MG TABLET PO SCH (08:23)
[2016-10-29] MEDS: SERTRALINE 100 MG TABLET PO SCH (08:23)
[2016-10-29] MEDS: RIFAXIMIN 550 MG TABLET PO SCH ×2 (08:23→21:07)
[2016-10-29] MEDS: AMIODARONE 200 MG TABLET PO SCH (08:23)
[2016-10-29] MEDS: ATENOLOL 50 MG TABLET PO SCH (08:23)
--- NOTE | 2016-10-29 19:53 | Progress Note ---
Subjective: The patient was seen in her room earlier this morning. She states she is feeling much stronger. She states she is thinking more clearly. She denies any pain at this time. She denies any chest pain or shortness of breath. Appetite is okay. She is urinating frequently with her diuretics. Objective Vital signs: Temperature 98.0 F 10/29/16 16:00 Pulse Rate 69 10/29/16 16:00 Respiratory Rate 14 10/29/16 16:00 Blood Pressure 130/69 10/29/16 16:00 Pulse Oximetry 96 10/29/16 16:00 Oxygen Delivery Method Room Air Oxygen Flow Rate 5 Weight: 78 kg Comments: GEN-alert, oriented, no acute distress HEENT-sclera anicteric, pupils equal, oropharynx is moist NECK-supple CV-regular rate and rhythm CHEST-clear to auscultation bilaterally ABD-soft, nontender with positive bowel sounds -no Pfeiffer EXT-trace edema of legs NEURO-no focal deficits SKIN-warm and dry Results - Labs CBC & Chem 7: 10/29/16 04:24 10/29/16 11:51 Assessment and Plan (1) Weakness generalized Current visit: Yes Status: Acute (2) Hypokalemia Problem details: Potassium 2.3 and 2.5 on date of admission Current visit: Yes Status: Acute Assessment and Plan: 10/28/16 - Gulshan. Impression: Hypokalemia, acute. * Decrease in potassium today at 3.3. In light of current hypernatremia with sodium at 146 and hypokalemia, will give 1L NS with 40 KCl x 1 bag now and continue to monitor electrolytes and renal function with repeat BMP in AM. Will continue oral potassium as ordered. Generalized Weakness, acute. * Continues to improve as her potassium increases. She reports feeling stronger each day and states that her activity level is back to her baseline prior to admission. Physical therapy recommends SNU-she wants to go back to assisted living-discussed with case management. Will obtain IRU screen as she would greatly benefit for intensive therapy. Pancytopenia, acute. * CBC today showed WBC 3.9, persistent anemia with slight improvement in hemoglobin at 11.7 and persistent thrombocytopenia with platelets at 65. Will continue to monitor closely and repeat CBC in AM to monitor blood counts. Recommend follow up with Dr. Zuniga as outpatient for bone marrow biopsy. Paroxysmal atrial fibrillation, chronic. * No change. Continue to monitor closely on telemetry. Continue home amiodarone. Congestive heart failure-diastolic, chronic. * No change. Continue home bumex 2mg daily. Continue to monitor closely for signs of fluid overload and daily weights. In light of hypokalemia, continue to hold metolazone. Chronic kidney disease, stage III - GFR 60. * No change. Continue to monitor renal function. Renal function stable. Repeat BMP in AM to monitor electrolytes and renal function. Essential hypertension, chronic. * No change. Blood pressure well controlled. Continue to monitor closely. Continue home atenolol. Monitor closely for signs of fluid overload. She is on Bumex 2 mg daily. Hypothyroidism, chronic. * No change. Continue Synthroid 125mcg daily. Recheck TSH in ~6 weeks as TSH was elevated on admission. Adenocarcinoma of the colon in June 2016. * Underwent colonoscopy by Dr. Winters today, 10/28. Results and recommendations pending. Appreciate Dr. Winters's time and expertise. Dementia, chronic. * No change. Continue home medications including Aricept Chronic back pain. * No change. Continue with Mermentau and fentanyl patch for pain control. Continue prednisone for pain- ideally would wean off prednisone. Continue with bowel motivation in light of narcotics. Chronic anticoagulation with Eliquis - ON HOLD. * No change. Eliquis discontinued secondary to a GI bleed in June. SCDs for DVT prophylaxis. Depression, chronic. * No change. Continue home Depakote and Zoloft. Melatonin as needed for insomnia. Chronic cirrhosis. * No change. Continue home Rifaximin. Overactive Bladder. * No change. Continue home mirabegron. 10/29/2016-Dr. Burroughs Impression Hypokalemia-resolved Chronic hypernatremia-worsened this morning, possibly with nothing by mouth status yesterday Generalized weakness-improving Pancytopenia-stable Paroxysmal A. fib chronic CHF-at baseline Chronic kidney disease-stable Hypertension-well controlled Plan Encourage by mouth fluids for hypernatremia. Hold tomorrow morning's Bumex until we can get a basic metabolic profile. I did talk to the rehabilitation case coordinator about possible inpatient rehabilitation, the patient was evaluated and found to be doing "too well" to go to IRU. Plan is for discharge to [facility] when medically stable. She will need frequent basic metabolic profiles to follow potassium and sodium. Possible discharge tomorrow Discussed with case management, her nurse, and the patient's son Sepsis Assessment - Evaluation Sepsis screening result: No Definite Risk Hospital Course Summary Disclaimer: The visit summary below is not to be considered part of the above Progress Note. Hospital Course: 10/24/16 10:25 Cait The patient was seen by me at 9:45 am. She is sitting up in the chair, still feels weak. She has difficulty getting up to the commode by herself. She has not been seen by physical therapy and occupational therapy yet this morning. On physical exam she is alert and oriented 3. She is very pleasant. CV regular rate and rhythm without murmur Lungs are clear Abdomen bowel sounds are present. There is no guarding or rebound,mildly obese Will continue her potassium supplementation both IV and by mouth. Recheck lab in the morning. Her lab work was reviewed. It is concerning that she has persistent neutropenia and thrombocytopenia as well as her known history of anemia. Her meds were reviewed by the pharmacist both fentanyl hasa 1% asociation as well as omeprazole as a 1% association with neutropenia. She was started on fentanyl recently because of her lower back pain which radiates to both hips. The hope was to decrease the amount of Mermentau she required for pain. He requires she is using less Mermentau, but she is willing to stop the fentanyl patch and see what happens with her white blood cell count. In addition she is not sure why she is on omeprazole will hold it at this time. Try to locate the results from her bone marrow biopsy done in 2013. She believes that was done by either Dr. Cash or Dr. Winters 10/25/16 14:26 10/25/16 14:27 Impression: Hypokalemia with slow improvement Weakness improving as her potassium increases, she is also working with physical therapy Paroxysmal atrial fibrillation Congestive heart failure-diastolic Chronic kidney disease Essential hypertension Hypothyroidism Adenocarcinoma of the colon in June 2016-was scheduled for a follow-up colonoscopy by Dr. Winters in November History of breast cancer 2009 Dementia Chronic anemia, neutropenia, and thrombocytopenia. Was discussed with Dr. Zuniga he would like to see her as an outpatient for follow-up bone marrow biopsy. At this time will resume her omeprazole as it does not appear her thrombocytopenia is due to a drug effect. Chronic back pain Chronic anticoagulation which was discontinued secondary to a GI bleed in June - previously on eliquis Depression Chronic cirrhosis Recommendations: Continue with oral potassium replacement Recheck her potassium level later today and in the morning Will recheck her CBC in the a.m., expect she will need further outpatient evaluation of her pancytopenia. Her levothyroxine has been increased to 25 g daily during this admission secondary to a modestly increased TSH Continue to work with physical therapy and increase her activity. 10/26/16 13:58 Impression: Hypokalemia, acute. * Slowly improving though potassium today was low at 3.2. Will increase daily dose to 40 mEq starting in AM and give an additional 20 mEq po now. Recheck BMP in AM to monitor electrolytes and renal function. Generalized Weakness, acute. * Continues to improve as her potassium increases. She reports feeling stronger each day and states that her activity level is back to her baseline prior to admission. Continue to encourage participation with therapy to improve functional ability and strength. Anticipate discharge in near future. May benefit from IRU. Paroxysmal atrial fibrillation, chronic. * Continue to monitor closely on telemetry. Continue home amiodarone. Congestive heart failure-diastolic, chronic. * Monitor closely for signs of fluid overload. Daily weight remaining stable. In light of hypokalemia, continue to hold metolazone. Chronic kidney disease, stage III - GFR 60. * Continue to monitor renal function. Essential hypertension, chronic. * Blood pressure well controlled. Continue to monitor closely. Continue home atenolol. In light of potassium depletion, continue to hold Bumex. Monitor closely for signs of fluid overload. Hypothyroidism, chronic. * Continue Synthroid 125mcg daily. Recheck TSH in ~6 weeks as TSH was elevated on admission. Adenocarcinoma of the colon in June 2016. * Was scheduled for a follow-up colonoscopy by Dr. Winters in November. Dementia, chronic. * Continue home medications including Aricept Chronic anemia, neutropenia, and thrombocytopenia. * Was discussed with Dr. Zuniga he would like to see her as an outpatient for follow-up bone marrow biopsy. At this time will resume her omeprazole as it does not appear her thrombocytopenia is due to a drug effect. Chronic back pain. * Continue with Mermentau and fentanyl patch for pain control. Continue prednisone for pain. Chronic anticoagulation with Eliquis - ON HOLD. * Eliquis discontinued secondary to a GI bleed in June. SCDs for DVT prophylaxis. Depression, chronic. * Continue home Depakote and Zoloft. Melatonin as needed for insomnia. Chronic cirrhosis. * Continue home Rifaximin. Overactive Bladder. * Continue home mirabegron. Monitor closely for signs of infection. 10/28/16 13:08 Impression: Hypokalemia, acute. * Decrease in potassium today at 3.3. In light of current hypernatremia with sodium at 146 and hypokalemia, will give 1L NS with 40 KCl x 1 bag now and continue to monitor electrolytes and renal function with repeat BMP in AM. Will continue oral potassium as ordered. Generalized Weakness, acute. * Continues to improve as her potassium increases. She reports feeling stronger each day and states that her activity level is back to her baseline prior to admission. Physical therapy recommends SNU-she wants to go back to assisted living-discussed with case management. Will obtain IRU screen as she would greatly benefit for intensive therapy. Pancytopenia, acute. * CBC today showed WBC 3.9, persistent anemia with slight improvement in hemoglobin at 11.7 and persistent thrombocytopenia with platelets at 65. Will continue to monitor closely and repeat CBC in AM to monitor blood counts. Recommend follow up with Dr. Zuniga as outpatient for bone marrow biopsy. Paroxysmal atrial fibrillation, chronic. * No change. Continue to monitor closely on telemetry. Continue home amiodarone. Congestive heart failure-diastolic, chronic. * No change. Continue home bumex 2mg daily. Continue to monitor closely for signs of fluid overload and daily weights. In light of hypokalemia, continue to hold metolazone. Chronic kidney disease, stage III - GFR 60. * No change. Continue to monitor renal function. Renal function stable. Repeat BMP in AM to monitor electrolytes and renal function. Essential hypertension, chronic. * No change. Blood pressure well controlled. Continue to monitor closely. Continue home atenolol. Monitor closely for signs of fluid overload. She is on Bumex 2 mg daily. Hypothyroidism, chronic. * No change. Continue Synthroid 125mcg daily. Recheck TSH in ~6 weeks as TSH was elevated on admission. Adenocarcinoma of the colon in June 2016. * Underwent colonoscopy by Dr. Winters today, 10/28. Results and recommendations pending. Appreciate Dr. Winters's time and expertise. Dementia, chronic. * No change. Continue home medications including Aricept Chronic back pain. * No change. Continue with Mermentau and fentanyl patch for pain control. Continue prednisone for pain- ideally would wean off prednisone. Continue with bowel motivation in light of narcotics. Chronic anticoagulation with Eliquis - ON HOLD. * No change. Eliquis discontinued secondary to a GI bleed in June. SCDs for DVT prophylaxis. Depression, chronic. * No change. Continue home Depakote and Zoloft. Melatonin as needed for insomnia. Chronic cirrhosis. * No change. Continue home Rifaximin. Overactive Bladder. * No change. Continue home mirabegron.
[2016-10-29] MEDS: DONEPEZIL 5 MG TABLET PO SCH (21:07)
[2016-10-29] MEDS: MELATONIN 5 MG TABLET PO SCH (21:07)
[2016-10-30] MEDS: LEVOTHYROXINE 125 MCG TABLET PO SCH (05:44)
[2016-10-30] MEDS: OMEPRAZOLE 20 MG CAPSULE PO SCH ×2 (05:44→17:48)
[2016-10-30] MEDS: HYDROCODONE/APAP 10 MG/325 MG TABLET PO PRN ×3 (05:45→19:31)
--- NOTE | 2016-10-30 08:23 | Progress Note ---
DATE 10/29/2016 FINDINGS Ms. Liu was seen earlier this morning on rounds. She was in good spirits. She denied abdominal pain. VITALS: Afebrile. Normotensive. Vitals include temperature 98.0, pulse 69, respirations 14, blood pressure 130/69, SaO2 96% on room air. HEENT: Normocephalic. Pupils are equal, round and reactive to light and accommodation. CHEST: Clear to auscultation bilaterally. HEART: Regular rate and rhythm. Normal S1 and S2 without gallops, murmurs or clicks. ABDOMEN: Palpation of the abdomen reveals it to be soft and nontender. I do not appreciate any evidence for hepatosplenomegaly or abnormal masses. LABORATORY/RADIOGRAPH EVALUATION The patient had a CBC today. Hemoglobin stable at 11.3. BMP obtained and her potassium remains stable at 3.6. Sodium was slightly elevated at 149. Pathology report, surprisingly, is already in the computer system from yesterday , 10/28/2016. Pathology did return revealing tubular adenoma with low grade dysplasia involving the proximal ascending colon. Biopsies from the mid ascending lesion revealed at least adenocarcinoma in situ. There was marked mucosal inflammation with focal mucosal erosion as well. Margins were indeterminate. Deeper invasion could still not be completely ruled out. 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 PLAN Will discuss pathology reports likely tomorrow with the son and the patient. Given her significant associated medical comorbidities and advanced age, I would prefer not to proceed with surgical resection. Of course, if the patient was younger and without significant medical comorbidities, would recommend proceeding with elective right hemicolectomy. I do believe, in this patient's situation, proceeding with a right hemicolectomy may have higher risk than benefits. The patient, earlier this morning, informed me that she did not want to have any type of surgery. I likely will recommend short-term endoscopic followup in 3-6 months. IMELDA
[2016-10-30] MEDS: SERTRALINE 100 MG TABLET PO SCH (08:28)
[2016-10-30] MEDS: PRAMIPEXOLE 1 MG TABLET PO SCH (08:28)
[2016-10-30] MEDS: SENNA + DOCUSATE TABLET PO SCH (08:28)
[2016-10-30] MEDS: AMIODARONE 200 MG TABLET PO SCH (08:28)
[2016-10-30] MEDS: RIFAXIMIN 550 MG TABLET PO SCH ×2 (08:29→21:21)
[2016-10-30] MEDS: DIVALPROEX 500 MG TABLET PO SCH (08:29)
[2016-10-30] MEDS: MIRABEGRON 25mg TABLET PO SCH (08:29)
[2016-10-30] MEDS: POLYETHYL GLYCOL 3350 17gm PACKET PO SCH (08:29)
[2016-10-30] MEDS: ATENOLOL 50 MG TABLET PO SCH (08:29)
--- NOTE | 2016-10-30 10:55 | Progress Note ---
Subjective: The patient states that she is having a headache and increased back pain today. She states this happens on occasion at home and she takes an extra Lortab. She states she has increased generalized weakness again today compared to yesterday. She denies any chest pain, shortness of breath or confusion. Appetite has been okay. Objective Vital signs: Temperature 97.9 F 10/30/16 07:00 Pulse Rate 60 10/30/16 08:00 Respiratory Rate 18 10/30/16 07:00 Blood Pressure 125/66 10/30/16 07:00 Pulse Oximetry 95 10/30/16 07:00 Oxygen Delivery Method Room Air Oxygen Flow Rate 5 Weight: 77.5 kg Comments: GEN-alert, oriented, no acute distress HEENT-sclera anicteric, pupils equal, oropharynx is moist NECK-supple CV-regular rate and rhythm CHEST-clear to auscultation bilaterally ABD-soft, nontender, nondistended with positive bowel sounds -no Pfeiffer EXT-no edema NEURO-no focal deficits SKIN-warm and dry and without rashes Results - Labs CBC & Chem 7: 10/30/16 04:45 10/30/16 04:45 Assessment and Plan (1) Weakness generalized Current visit: Yes Status: Acute (2) Hypokalemia Problem details: Potassium 2.3 and 2.5 on date of admission Current visit: Yes Status: Acute Assessment and Plan: 10/30/2016-Dr. Burroughs Impression Hypokalemia-potassium is low again today, possibly secondary to Zaroxolyn yesterday which is a Thursday medicine for her Chronic hypernatremia-improved today Generalized weakness-overall worse today with low potassium. Pancytopenia-stable Paroxysmal A. fib chronic-anticoagulation is on hold after a GI bleed in June CHF-at baseline, she is on Bumex daily and Zaroxolyn Thursday, Thursday and Fridays Chronic kidney disease-stable Hypertension-well controlled Adenocarcinoma of the colon-repeat biopsies on colonoscopy 10/28/2016 show tubular adenoma with low-grade dysplasia and a second biopsy showing at least adenocarcinoma in situ. Mild dementia-stable Chronic cirrhosis-stable Depression-stable Plan We'll give an extra dose of potassium 40 mEq today. Repeat basic metabolic profile this afternoon. I did call and talk with Dr. Major Brown and he agrees with current treatment. The patient did have a new patient evaluation scheduled with him for tomorrow but that will have to be canceled. He does not have privileges to come to this hospital. He plans to see her the next time he comes to [place], likely in 2 weeks. The patient will likely need an extra dose of potassium on Wednesdays and Fridays when she receives her Zaroxolyn. Continue to monitor renal function and CBC in light of her chronic kidney disease and pancytopenia. Adenocarcinoma with recent biopsies-treatment per Dr. Winters and her oncologist Dr. Zuniga With the patient's fluctuations in potassium, I do not think she is stable for transfer back to her senior care at this point. I would like to see her potassium normal and stable before transfer. Discussed with the patient and case management. Sepsis Assessment - Evaluation Sepsis screening result: No Definite Risk Hospital Course Summary Disclaimer: The visit summary below is not to be considered part of the above Progress Note. Hospital Course: 10/24/16 10:25 [place] The patient was seen by me at 9:45 am. She is sitting up in the chair, still feels weak. She has difficulty getting up to the commode by herself. She has not been seen by physical therapy and occupational therapy yet this morning. On physical exam she is alert and oriented 3. She is very pleasant. CV regular rate and rhythm without murmur Lungs are clear Abdomen bowel sounds are present. There is no guarding or rebound,mildly obese Will continue her potassium supplementation both IV and by mouth. Recheck lab in the morning. Her lab work was reviewed. It is concerning that she has persistent neutropenia and thrombocytopenia as well as her known history of anemia. Her meds were reviewed by the pharmacist both fentanyl hasa 1% asociation as well as omeprazole as a 1% association with neutropenia. She was started on fentanyl recently because of her lower back pain which radiates to both hips. The hope was to decrease the amount of Angela she required for pain. He requires she is using less Angela, but she is willing to stop the fentanyl patch and see what happens with her white blood cell count. In addition she is not sure why she is on omeprazole will hold it at this time. Try to locate the results from her bone marrow biopsy done in 2013. She believes that was done by either Dr. Cash or Dr. Winters 10/25/16 14:26 10/25/16 14:27 Impression: Hypokalemia with slow improvement Weakness improving as her potassium increases, she is also working with physical therapy Paroxysmal atrial fibrillation Congestive heart failure-diastolic Chronic kidney disease Essential hypertension Hypothyroidism Adenocarcinoma of the colon in June 2016-was scheduled for a follow-up colonoscopy by Dr. Winters in November History of breast cancer 2009 Dementia Chronic anemia, neutropenia, and thrombocytopenia. Was discussed with Dr. Zuniga he would like to see her as an outpatient for follow-up bone marrow biopsy. At this time will resume her omeprazole as it does not appear her thrombocytopenia is due to a drug effect. Chronic back pain Chronic anticoagulation which was discontinued secondary to a GI bleed in June - previously on eliquis Depression Chronic cirrhosis Recommendations: Continue with oral potassium replacement Recheck her potassium level later today and in the morning Will recheck her CBC in the a.m., expect she will need further outpatient evaluation of her pancytopenia. Her levothyroxine has been increased to 25 g daily during this admission secondary to a modestly increased TSH Continue to work with physical therapy and increase her activity. 10/26/16 13:58 Impression: Hypokalemia, acute. * Slowly improving though potassium today was low at 3.2. Will increase daily dose to 40 mEq starting in AM and give an additional 20 mEq po now. Recheck BMP in AM to monitor electrolytes and renal function. Generalized Weakness, acute. * Continues to improve as her potassium increases. She reports feeling stronger each day and states that her activity level is back to her baseline prior to admission. Continue to encourage participation with therapy to improve functional ability and strength. Anticipate discharge in near future. May benefit from IRU. Paroxysmal atrial fibrillation, chronic. * Continue to monitor closely on telemetry. Continue home amiodarone. Congestive heart failure-diastolic, chronic. * Monitor closely for signs of fluid overload. Daily weight remaining stable. In light of hypokalemia, continue to hold metolazone. Chronic kidney disease, stage III - GFR 60. * Continue to monitor renal function. Essential hypertension, chronic. * Blood pressure well controlled. Continue to monitor closely. Continue home atenolol. In light of potassium depletion, continue to hold Bumex. Monitor closely for signs of fluid overload. Hypothyroidism, chronic. * Continue Synthroid 125mcg daily. Recheck TSH in ~6 weeks as TSH was elevated on admission. Adenocarcinoma of the colon in June 2016. * Was scheduled for a follow-up colonoscopy by Dr. Winters in November. Dementia, chronic. * Continue home medications including Aricept Chronic anemia, neutropenia, and thrombocytopenia. * Was discussed with Dr. Zuniga he would like to see her as an outpatient for follow-up bone marrow biopsy. At this time will resume her omeprazole as it does not appear her thrombocytopenia is due to a drug effect. Chronic back pain. * Continue with Angela and fentanyl patch for pain control. Continue prednisone for pain. Chronic anticoagulation with Eliquis - ON HOLD. * Eliquis discontinued secondary to a GI bleed in June. SCDs for DVT prophylaxis. Depression, chronic. * Continue home Depakote and Zoloft. Melatonin as needed for insomnia. Chronic cirrhosis. * Continue home Rifaximin. Overactive Bladder. * Continue home mirabegron. Monitor closely for signs of infection. 10/28/16 13:08 Impression: Hypokalemia, acute. * Decrease in potassium today at 3.3. In light of current hypernatremia with sodium at 146 and hypokalemia, will give 1L NS with 40 KCl x 1 bag now and continue to monitor electrolytes and renal function with repeat BMP in AM. Will continue oral potassium as ordered. Generalized Weakness, acute. * Continues to improve as her potassium increases. She reports feeling stronger each day and states that her activity level is back to her baseline prior to admission. Physical therapy recommends SNU-she wants to go back to assisted living-discussed with case management. Will obtain IRU screen as she would greatly benefit for intensive therapy. Pancytopenia, acute. * CBC today showed WBC 3.9, persistent anemia with slight improvement in hemoglobin at 11.7 and persistent thrombocytopenia with platelets at 65. Will continue to monitor closely and repeat CBC in AM to monitor blood counts. Recommend follow up with Dr. Zuniga as outpatient for bone marrow biopsy. Paroxysmal atrial fibrillation, chronic. * No change. Continue to monitor closely on telemetry. Continue home amiodarone. Congestive heart failure-diastolic, chronic. * No change. Continue home bumex 2mg daily. Continue to monitor closely for signs of fluid overload and daily weights. In light of hypokalemia, continue to hold metolazone. Chronic kidney disease, stage III - GFR 60. * No change. Continue to monitor renal function. Renal function stable. Repeat BMP in AM to monitor electrolytes and renal function. Essential hypertension, chronic. * No change. Blood pressure well controlled. Continue to monitor closely. Continue home atenolol. Monitor closely for signs of fluid overload. She is on Bumex 2 mg daily. Hypothyroidism, chronic. * No change. Continue Synthroid 125mcg daily. Recheck TSH in ~6 weeks as TSH was elevated on admission. Adenocarcinoma of the colon in June 2016. * Underwent colonoscopy by Dr. Winters today, 10/28. Results and recommendations pending. Appreciate Dr. Winters's time and expertise. Dementia, chronic. * No change. Continue home medications including Aricept Chronic back pain. * No change. Continue with Angela and fentanyl patch for pain control. Continue prednisone for pain- ideally would wean off prednisone. Continue with bowel motivation in light of narcotics. Chronic anticoagulation with Eliquis - ON HOLD. * No change. Eliquis discontinued secondary to a GI bleed in June. SCDs for DVT prophylaxis. Depression, chronic. * No change. Continue home Depakote and Zoloft. Melatonin as needed for insomnia. Chronic cirrhosis. * No change. Continue home Rifaximin. Overactive Bladder. * No change. Continue home mirabegron. 10/29/2016-Dr. Burroughs Impression Hypokalemia-resolved Chronic hypernatremia-worsened this morning, possibly with nothing by mouth status yesterday Generalized weakness-improving Pancytopenia-stable Paroxysmal A. fib chronic CHF-at baseline Chronic kidney disease-stable Hypertension-well controlled Plan Encourage by mouth fluids for hypernatremia. Hold tomorrow morning's Bumex until we can get a basic metabolic profile. I did talk to the trimming caser about possible inpatient rehabilitation, the patient was evaluated and found to be doing "too well" to go to IRU. Plan is for discharge to group home when medically stable. She will need frequent basic metabolic profiles to follow potassium and sodium. Possible discharge tomorrow Discussed with case management, her nurse, and the patient's son
[2016-10-30] MEDS ORDERED: FALL RISK - PHARMACY CONSULT MC PRN (17:20)
[2016-10-30] MEDS: DONEPEZIL 5 MG TABLET PO SCH (21:21)
[2016-10-30] MEDS: MELATONIN 5 MG TABLET PO SCH (21:24)
[2016-10-31] MEDS: HYDROCODONE/APAP 10 MG/325 MG TABLET PO PRN ×3 (03:11→17:22)
[2016-10-31] MEDS: LEVOTHYROXINE 125 MCG TABLET PO SCH (06:41)
[2016-10-31] MEDS: OMEPRAZOLE 20 MG CAPSULE PO SCH ×2 (06:41→17:25)
[2016-10-31] MEDS: MIRABEGRON 25mg TABLET PO SCH (09:02)
[2016-10-31] MEDS: SERTRALINE 100 MG TABLET PO SCH (09:02)
[2016-10-31] MEDS: AMIODARONE 200 MG TABLET PO SCH (09:02)
[2016-10-31] MEDS: PRAMIPEXOLE 1 MG TABLET PO SCH (09:02)
[2016-10-31] MEDS: BUMETANIDE 1 MG TABLET PO SCH (09:02)
[2016-10-31] MEDS: ATENOLOL 50 MG TABLET PO SCH (09:03)
[2016-10-31] MEDS: POLYETHYL GLYCOL 3350 17gm PACKET PO SCH (09:03)
[2016-10-31] MEDS: SENNA + DOCUSATE TABLET PO SCH (09:03)
[2016-10-31] MEDS: RIFAXIMIN 550 MG TABLET PO SCH ×2 (09:03→20:40)
[2016-10-31] MEDS: DIVALPROEX 500 MG TABLET PO SCH (09:03)
--- NOTE | 2016-10-31 11:11 | Progress Note ---
DATE 10/30/2016 FINDINGS Ms. Liu this evening was in good spirits. She denied any element of abdominal pain. VITALS: Afebrile. Normotensive. ABDOMEN: Soft, nontender. ASSESSMENT 80-year-old female with multiple associated medical morbidities who has at least intramucosal adenocarcinoma involving mid ascending colon. PLAN I did inform the patient of her pathology report this evening that did reveal ongoing evidence for intramucosal adenocarcinoma involving her ascending colon. Margins were still indeterminate. It is my intuition that she may have a small focus of invasion given the fact that this lesion did not lift off of the underlying submucosa with injecting saline into the submucosa. Nonetheless, given her advanced age and significant medical comorbidities, I do not feel that she is the best operative candidate to undergo a robotic-assisted right hemicolectomy. Would recommend that we continue with short-term followup and repeat a colonoscopy in 3-6 months. I informed the patient there is some risk of also not proceeding with surgery and the chance that if indeed there is an invasive cancer it could spread/metastasize. I do believe this risk is minimal , however. I also discussed the above findings and recommendations with her son , Isra Liu, by phone this evening. Son and patient agree with short-term followup of repeating colonoscopy at 3-6 months. Will sign off the patient's care and follow from a distance at this time. Please contact me if further assistance is needed. IMELDA
[2016-10-31] MEDS: REFRESH CELLUVISC 1% Eye Drops 0.4ml EACH EYE PRN (17:22)
[2016-10-31] MEDS: SALINE FLUSH 10ml SYRINGE IVF PRN (17:23)
--- NOTE | 2016-10-31 18:09 | Progress Note ---
Subjective: The patient was seen earlier this afternoon. She states she feels "blah" today. When asked to explain she states her mood is a little low and she feels more achy today. Her appetite is not as good as usual. She denies any chest pain or shortness of breath. She denies any abdominal pain. Be that her potassium has normalized. Objective Vital signs: Temperature 98.5 F 10/31/16 15:39 Pulse Rate 71 10/31/16 16:00 Respiratory Rate 19 10/31/16 15:39 Blood Pressure 118/51 10/31/16 15:39 Pulse Oximetry 96 10/31/16 15:39 Oxygen Delivery Method Room Air Oxygen Flow Rate 5 Weight: 77.5 kg Comments: GEN-alert, oriented, no acute distress HEENT-sclera anicteric, pupils are equal, oropharynx is moist NECK-supple CV-regular rate and rhythm CHEST-to auscultation bilaterally ABD-soft with positive bowel sounds -no Pfeiffer EXT-trace edema bilaterally NEURO-history of dementia but this appears to be mild, no focal deficits SKIN-warm and dry and without rashes Results - Labs CBC & Chem 7: 10/31/16 04:32 10/31/16 04:32 Assessment and Plan (1) Weakness generalized Current visit: Yes Status: Acute (2) Hypokalemia Problem details: Potassium 2.3 and 2.5 on date of admission Current visit: Yes Status: Acute 10/28/16 14:32 I have independently evaluated and examined this patient. I reviewed the chart, the patient's history, and the CHEMICAL SALES REPRESENTATIVE/PA's documented findings as above. We discussed and formulated the assessment and plan as above with additions as below. The patient was seen 14:10 at with son at bedside. She is back from her colonoscopy. She had good results with her bowel prep. Results of the colonoscopy are pending. The patient reports doing well and slept well during the night. Denies fevers, chills, sweats. Denies sore throat, shortness of breath, dyspnea on exertion, cough, sputum production, chest pain. Denies nausea, vomiting. In general, the patient is alert and oriented 3, cooperative with exam, and in no respiratory distress. HEENT: Head is atraumatic, normocephalic, no conjunctival petechiae, no oral thrush, mucous membranes are moist and pink. Lungs: Clear to auscultation without wheezes, crackles or rhonchi CV: Regular rate and rhythm without murmur Abdomen: Soft, nontender, bowel sounds are present, there is no guarding no rebound. Extremities: No clubbing, no cyanosis, no edema. Skin: Warm and dry no sign of rash Neuro: Patient is alert Her K is down again to 2.9 after her bowel prep- Mg is pending. Will replace with IV and po KCL. Discussed with case management- would prefer placement here in IRU if possible secondary to her medical complexities. If she does go to IRU, will see if Dr. Zuniga could see her and do a BM biopsy while here to assess her pancytopenia. She does have an appt with Dr. Brown on Thursday- he may have some nursing home suggestions for her hypokalemia. She is weaning down to prednsione 5 mg for her back pain- ideally would try to discontinue oral steroids. 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 10/28/16 14:35 Assessment and Plan: 10/31/2016-Dr. Burroughs Impression Hypokalemia-potassium is normal today, but during this hospital stay it will alternate between normal and low. Chronic hypernatremia-sodium 146 today just fairly stable Generalized weakness-chronic but was acutely worse with hypokalemia Pancytopenia-stable Paroxysmal A. fib chronic-anticoagulation is on hold after a GI bleed in June CHF-at baseline, she is on Bumex daily and Zaroxolyn Thursday, Thursday and Fridays Chronic kidney disease-stable Hypertension-well controlled Adenocarcinoma of the colon-repeat biopsies on colonoscopy 10/28/2016 show tubular adenoma with low-grade dysplasia and a second biopsy showing at least adenocarcinoma in situ. Mild dementia-stable Chronic cirrhosis-stable Depression-stable Plan Re: Hypokalemia, will continue potassium 40 mEq a day and give an extra 40 mEq on Mondays, Wednesdays and Fridays which are the days she takes Zaroxolyn. Consider transfer to alf soon if potassium remains normal. Continue to monitor renal function and CBC in light of her chronic kidney disease and pancytopenia. Adenocarcinoma with recent biopsies-treatment per Dr. Winters and her oncologist Dr. Zuniga After discharge she will need to schedule a new patient appointment with Dr. Major Brown regarding chronic kidney disease and she will need to schedule a follow-up appointment with Dr. Zuniga regarding pancytopenia. Sepsis Assessment - Evaluation Sepsis screening result: No Definite Risk Hospital Course Summary Disclaimer: The visit summary below is not to be considered part of the above Progress Note. Hospital Course: 10/24/16 10:25 [place] The patient was seen by me at 9:45 am. She is sitting up in the chair, still feels weak. She has difficulty getting up to the commode by herself. She has not been seen by physical therapy and occupational therapy yet this morning. On physical exam she is alert and oriented 3. She is very pleasant. CV regular rate and rhythm without murmur Lungs are clear Abdomen bowel sounds are present. There is no guarding or rebound,mildly obese Will continue her potassium supplementation both IV and by mouth. Recheck lab in the morning. Her lab work was reviewed. It is concerning that she has persistent neutropenia and thrombocytopenia as well as her known history of anemia. Her meds were reviewed by the pharmacist both fentanyl hasa 1% asociation as well as omeprazole as a 1% association with neutropenia. She was started on fentanyl recently because of her lower back pain which radiates to both hips. The hope was to decrease the amount of [place] she required for pain. He requires she is using less [place], but she is willing to stop the fentanyl patch and see what happens with her white blood cell count. In addition she is not sure why she is on omeprazole will hold it at this time. Try to locate the results from her bone marrow biopsy done in 2013. She believes that was done by either Dr. Cash or Dr. Winters 10/25/16 14:26 10/25/16 14:27 Impression: Hypokalemia with slow improvement Weakness improving as her potassium increases, she is also working with physical therapy Paroxysmal atrial fibrillation Congestive heart failure-diastolic Chronic kidney disease Essential hypertension Hypothyroidism Adenocarcinoma of the colon in June 2016-was scheduled for a follow-up colonoscopy by Dr. Winters in November History of breast cancer 2008 Dementia Chronic anemia, neutropenia, and thrombocytopenia. Was discussed with Dr. Zuniga he would like to see her as an outpatient for follow-up bone marrow biopsy. At this time will resume her omeprazole as it does not appear her thrombocytopenia is due to a drug effect. Chronic back pain Chronic anticoagulation which was discontinued secondary to a GI bleed in June - previously on eliquis Depression Chronic cirrhosis Recommendations: Continue with oral potassium replacement Recheck her potassium level later today and in the morning Will recheck her CBC in the a.m., expect she will need further outpatient evaluation of her pancytopenia. Her levothyroxine has been increased to 25 g daily during this admission secondary to a modestly increased TSH Continue to work with physical therapy and increase her activity. 10/26/16 13:58 Impression: Hypokalemia, acute. * Slowly improving though potassium today was low at 3.2. Will increase daily dose to 40 mEq starting in AM and give an additional 20 mEq po now. Recheck BMP in AM to monitor electrolytes and renal function. Generalized Weakness, acute. * Continues to improve as her potassium increases. She reports feeling stronger each day and states that her activity level is back to her baseline prior to admission. Continue to encourage participation with therapy to improve functional ability and strength. Anticipate discharge in near future. May benefit from IRU. Paroxysmal atrial fibrillation, chronic. * Continue to monitor closely on telemetry. Continue home amiodarone. Congestive heart failure-diastolic, chronic. * Monitor closely for signs of fluid overload. Daily weight remaining stable. In light of hypokalemia, continue to hold metolazone. Chronic kidney disease, stage III - GFR 60. * Continue to monitor renal function. Essential hypertension, chronic. * Blood pressure well controlled. Continue to monitor closely. Continue home atenolol. In light of potassium depletion, continue to hold Bumex. Monitor closely for signs of fluid overload. Hypothyroidism, chronic. * Continue Synthroid 125mcg daily. Recheck TSH in ~6 weeks as TSH was elevated on admission. Adenocarcinoma of the colon in June 2016. * Was scheduled for a follow-up colonoscopy by Dr. Winters in November. Dementia, chronic. * Continue home medications including Aricept Chronic anemia, neutropenia, and thrombocytopenia. * Was discussed with Dr. Zuniga he would like to see her as an outpatient for follow-up bone marrow biopsy. At this time will resume her omeprazole as it does not appear her thrombocytopenia is due to a drug effect. Chronic back pain. * Continue with [place] and fentanyl patch for pain control. Continue prednisone for pain. Chronic anticoagulation with Eliquis - ON HOLD. * Eliquis discontinued secondary to a GI bleed in June. SCDs for DVT prophylaxis. Depression, chronic. * Continue home Depakote and Zoloft. Melatonin as needed for insomnia. Chronic cirrhosis. * Continue home Rifaximin. Overactive Bladder. * Continue home mirabegron. Monitor closely for signs of infection. 10/28/16 13:08 Impression: Hypokalemia, acute. * Decrease in potassium today at 3.3. In light of current hypernatremia with sodium at 146 and hypokalemia, will give 1L NS with 40 KCl x 1 bag now and continue to monitor electrolytes and renal function with repeat BMP in AM. Will continue oral potassium as ordered. Generalized Weakness, acute. * Continues to improve as her potassium increases. She reports feeling stronger each day and states that her activity level is back to her baseline prior to admission. Physical therapy recommends SNU-she wants to go back to assisted living-discussed with case management. Will obtain IRU screen as she would greatly benefit for intensive therapy. Pancytopenia, acute. * CBC today showed WBC 3.9, persistent anemia with slight improvement in hemoglobin at 11.7 and persistent thrombocytopenia with platelets at 65. Will continue to monitor closely and repeat CBC in AM to monitor blood counts. Recommend follow up with Dr. Zuniga as outpatient for bone marrow biopsy. Paroxysmal atrial fibrillation, chronic. * No change. Continue to monitor closely on telemetry. Continue home amiodarone. Congestive heart failure-diastolic, chronic. * No change. Continue home bumex 2mg daily. Continue to monitor closely for signs of fluid overload and daily weights. In light of hypokalemia, continue to hold metolazone. Chronic kidney disease, stage III - GFR 60. * No change. Continue to monitor renal function. Renal function stable. Repeat BMP in AM to monitor electrolytes and renal function. Essential hypertension, chronic. * No change. Blood pressure well controlled. Continue to monitor closely. Continue home atenolol. Monitor closely for signs of fluid overload. She is on Bumex 2 mg daily. Hypothyroidism, chronic. * No change. Continue Synthroid 125mcg daily. Recheck TSH in ~6 weeks as TSH was elevated on admission. Adenocarcinoma of the colon in June 2016. * Underwent colonoscopy by Dr. Winters today, 10/28. Results and recommendations pending. Appreciate Dr. Winters's time and expertise. Dementia, chronic. * No change. Continue home medications including Aricept Chronic back pain. * No change. Continue with [place] and fentanyl patch for pain control. Continue prednisone for pain- ideally would wean off prednisone. Continue with bowel motivation in light of narcotics. Chronic anticoagulation with Eliquis - ON HOLD. * No change. Eliquis discontinued secondary to a GI bleed in June. SCDs for DVT prophylaxis. Depression, chronic. * No change. Continue home Depakote and Zoloft. Melatonin as needed for insomnia. Chronic cirrhosis. * No change. Continue home Rifaximin. Overactive Bladder. * No change. Continue home mirabegron. 10/29/2016-Dr. Burroughs Impression Hypokalemia-resolved Chronic hypernatremia-worsened this morning, possibly with nothing by mouth status yesterday Generalized weakness-improving Pancytopenia-stable Paroxysmal A. fib chronic CHF-at baseline Chronic kidney disease-stable Hypertension-well controlled Plan Encourage by mouth fluids for hypernatremia. Hold tomorrow morning's Bumex until we can get a basic metabolic profile. I did talk to the case management rn about possible inpatient rehabilitation, the patient was evaluated and found to be doing "too well" to go to IRU. Plan is for discharge to [facility] when medically stable. She will need frequent basic metabolic profiles to follow potassium and sodium. Possible discharge tomorrow Discussed with case management, her nurse, and the patient's son 10/31/16 18:09 10/30/2016-Dr. Burroughs Impression Hypokalemia-potassium is low again today, possibly secondary to Zaroxolyn yesterday which is a Thursday medicine for her Chronic hypernatremia-improved today Generalized weakness-overall worse today with low potassium. Pancytopenia-stable Paroxysmal A. fib chronic-anticoagulation is on hold after a GI bleed in June CHF-at baseline, she is on Bumex daily and Zaroxolyn Thursday, Thursday and Fridays Chronic kidney disease-stable Hypertension-well controlled Adenocarcinoma of the colon-repeat biopsies on colonoscopy 10/28/2016 show tubular adenoma with low-grade dysplasia and a second biopsy showing at least adenocarcinoma in situ. Mild dementia-stable Chronic cirrhosis-stable Depression-stable Plan We'll give an extra dose of potassium 40 mEq today. Repeat basic metabolic profile this afternoon. I did call and talk with Dr. Major Brown and he agrees with current treatment. The patient did have a new patient evaluation scheduled with him for tomorrow but that will have to be canceled. He does not have privileges to come to this hospital. He plans to see her the next time he comes to [place], likely in 2 weeks. The patient will likely need an extra dose of potassium on Wednesdays and Fridays when she receives her Zaroxolyn. Continue to monitor renal function and CBC in light of her chronic kidney disease and pancytopenia. Adenocarcinoma with recent biopsies-treatment per Dr. Wintres and her oncologist Dr. Zuniga With the patient's fluctuations in potassium, I do not think she is stable for transfer back to her alf at this point. I would like to see her potassium normal and stable before transfer. Discussed with the patient and case management.
[2016-10-31] MEDS: DONEPEZIL 5 MG TABLET PO SCH ×2 (20:40→21:11)
[2016-10-31] MEDS: MELATONIN 5 MG TABLET PO SCH ×2 (20:40→21:11)
[2016-11-01 00:44] VITALS: RESP 16
[2016-11-01] MEDS: LEVOTHYROXINE 125 MCG TABLET PO SCH ×2 (05:03→06:21)
[2016-11-01] MEDS: HYDROCODONE/APAP 10 MG/325 MG TABLET PO PRN (05:03)
[2016-11-01] MEDS: OMEPRAZOLE 20 MG CAPSULE PO SCH ×2 (05:03→06:20)
[2016-11-01 08:05] VITALS: BP 113/54; PULSE 60; TEMP 98.5; O2SAT 94
[2016-11-01] MEDS: BUMETANIDE 1 MG TABLET PO SCH (09:07)
[2016-11-01] MEDS: PRAMIPEXOLE 1 MG TABLET PO SCH (09:07)
[2016-11-01] MEDS: MIRABEGRON 25mg TABLET PO SCH (09:07)
[2016-11-01] MEDS: RIFAXIMIN 550 MG TABLET PO SCH (09:07)
[2016-11-01] MEDS: ATENOLOL 50 MG TABLET PO SCH (09:08)
[2016-11-01] MEDS: DIVALPROEX 500 MG TABLET PO SCH (09:08)
[2016-11-01] MEDS: SERTRALINE 100 MG TABLET PO SCH (09:08)
[2016-11-01] MEDS: POLYETHYL GLYCOL 3350 17gm PACKET PO SCH ×2 (09:08→09:11)
[2016-11-01] MEDS: AMIODARONE 200 MG TABLET PO SCH (09:08)
[2016-11-01] MEDS: SENNA + DOCUSATE TABLET PO SCH (09:08)
--- NOTE | 2016-11-01 09:26 | Discharge Instructions ---
Discharge Plan - Med Rec/Dispo Referrals/Follow Up: Sadie Taveras, [Family Provider] - 2 Weeks [place] Instructions: Hypokalemia (GEN) Prescriptions: New Potassium Chloride [Micro-K] 40 meq PO WB 30 Days #160 capsule Continue Polyethylene Glycol 3350 [Miralax] 17 gm PO DAILY PRN #0 PRN Reason: CONSTIPATION Rifaximin [Xifaxan] 550 mg PO BID #0 tab predniSONE [Prednisone] 5 mg PO WB #0 Mirabegron [Myrbetriq] 25 mg PO DAILY #0 tab Hydrocodone/APAP 10/325 [[place] 10/325] 1 tab PO Q6H PRN PRN Reason: Pain Pramipexole [Mirapex] 1 mg PO DAILY Ospemifene [Osphena] 60 mg PO DAILY Ondansetron [Ondansetron Odt] 8 mg PO Q8H PRN PRN Reason: Nausea &/Or Vomiting Hydrocortisone [Anti-Itch] 1 applic TOP QID PRN PRN Reason: Rash Bacitracin Oint 1 applic TOP QID PRN PRN Reason: Prn Orders Saliva Substitute Mouthwash [Biotene Dry Mouth Oral Rinse] 1 applic PO BID PRN PRN Reason: Dry Mouth Melatonin/Pyridoxine HCl (B6) [Melatonin 5 mg Tablet] 5 - 10 mg PO HS Donepezil [Aricept] 5 mg PO HS Divalproex [Depakote] 500 mg PO DAILY #0 Levothyroxine Sodium 112 mcg PO ACB #0 Atenolol 50 mg PO DAILY #0 Amiodarone HCl 200 mg PO DAILY #0 Omeprazole 20 mg PO BID #0 Bumetanide 2 mg PO DAILY #0 fentaNYL [Fentanyl] 1 patch TOP Q72H #0 Sertraline [Zoloft] 100 mg PO DAILY Oxymetazoline Nasal [place] [Afrin Nasal [place]] 2 spray ALEXANDRO PRN PRN PRN Reason: Prn Orders Carboxymethylcellulose Sodium [Refresh Plus] 1 each EACH EYE TID PRN PRN Reason: Dry Eyes Metolazone [Zaroxolyn] 2.5 mg PO MOWEFR Discharge Instructions/Outpatient Orders: Final Provider Discharge Instructions Location: Determined By Patient - Disposition 03 To SNU Not [facility] ([facility])
--- NOTE | 2016-11-01 09:34 | Extended Care Facility Orders ---
Admission Orders Admit to:: Snf Allergies/Adverse Reactions: Allergies phenylbutazone Allergy (Mild, Verified 08/05/16 20:08) HIVES (BUTAZOLIDIN - MANU DISC) lansoprazole Adverse Reaction (Mild, Verified 08/05/16 20:08) DIARRHEA Admitting Diagnosis: Hypokalemia, weakness Admitting Physician: Sun Burroughs MD Attending Physician: Sun Burroughs MD Code Status: Do Not Resuscitate Anticiapted Length of Stay: 30 days or less Rehab Potential: good Rehab Prognosis: good Diet: 10/28/16 Lunch Regular Diet [DIET] Diet Modifications: May use Facility Protocol or Standing Orders: Yes May have flu vaccine: Yes Evaluations/Treatment: PT, OT Snf Certification: I certify that SNF services are required to be given on an Inpatient basis because of the patients need for senior care care on a continuing basis for the condition(s) for which he/she received inpatient hospital services prior to his/her transfer to the SNF. SNF inpatient care is necessary for the following reasons Indication for Snf: Other (Strengthening and rehab, medication management) - Additional Information In Event of Arrest: Do Not Start CPR Resident is Aware of Diagnosis: Yes Laboratory/Radiology: Weekly BMP on Tuesdays to follow potassium levels Referrals: Sadie Taveras DO [Family Provider] - 2 Weeks
--- NOTE | 2016-11-01 09:39 | Discharge Summary ---
Discharge Information Date of admission: 10/23/16 14:33 Anticipated date of discharge: 11/01/16 Attending Physician: Sun Burroughs MD Primary care physician: Sadie Taveras DO Consults: 10/27/16 11:47 Doctor [Physician Consult] [CONS] Routine Consulting Provider: Obdulio Mccracken Reason For Exam: CONTINUED CARE Ordering Provider has Notified Customer Resource Specialist: Yes 10/27/16 13:45 Physician Consult [CONS] Routine Consulting Provider: Mino Winters Reason For Exam: follow up colonoscopy Ordering Provider has Notified Customer Resource Specialist: Yes 10/28/16 IRU Screening [Inpatient Rehab Screening] [CONS] Routine - Discharge Diagnosis Discharge Diagnosis: Severe hypokalemia, weakness, liver cirrhosis, edema, chronic pain syndrome - Laboratory Labs: 10/31/16 04:32 11/01/16 07:48 History of Present Illness HPI: Bhavna is a 80 -year-old female well known to the hospitalist service due to many past hospitalizations. She presented to the emergency department from [place] (where she is in assisted living) with complaints of lethargy after she had received results from routine outpatient lab work drawn earlier in the day. She was found to be significantly hypokalemic at 2.5 and was then sent emergency room for further evaluation. On workup in the emergency department, labs showed white blood cell count 3.7, hemoglobin 12.1, hematocrit 37.0, platelets 70. Chemistry panel shows sodium 144 , potassium 2.5, chloride 87, carbon dioxide 46, BUN 24, creatinine 1.1. Magnesium was 1.7. AST slightly elevated at 48, ALTs normal at 42. TSH was elevated at 8.42. Urine was essentially negative except trace leukocytes. She was given 40 mEq potassium IV and 30 mEq potassium by mouth in the emergency room. Based on her hypokalemia and weakness will admit patient to inpatient status under the care of Dr. Ortega. It is expected that her stay will be greater than 2 overnights. Bhavna is seen on initial admission with complaints of ongoing fatigue and weakness. She reports symptoms are constant; however, she will get so weak at times, that she ends up being hospitalized. She has no specific complaints at this time other than the ongoing weakness. She has had no recent fever. She does state she has chronic headaches. No chest pain or shortness of breath. Last bowel movement was 2 days ago. She is incontinent of urine the majority of time. Lack of appetite. Patient requests to be a DO NOT RESUSCITATE. This order is written. Objective Vital signs: Temperature 98.5 F 11/01/16 08:03 Pulse Rate 60 11/01/16 08:59 Respiratory Rate 16 11/01/16 08:03 Blood Pressure 113/54 11/01/16 08:03 Pulse Oximetry 94 11/01/16 08:03 Oxygen Delivery Method Room Air Oxygen Flow Rate 5 Rhythm: Normal Sinus Rhythm Weight: 77.5 kg - Constitutional Present: no acute distress, well nourished, well developed, obese - Routine HEENT Exam Head: Present: normocephalic, atraumatic Eye: Present: EOMI, PERRL. Absent: conjunctival icterus ENT: Present: mucous membranes moist, oropharynx clear, dentition normal - Routine Respiratory Exam Present: CTA bilaterally. Absent: accessory muscle use, dyspnea, rales, respiratory distress - Routine Cardiovascular Exam Present: RRR. Absent: murmur - Routine Abdominal Exam Present: soft. Absent: tenderness, non distended - Routine Extremities Exam Present: edema (trace BLE), pulses intact. Absent: joint swelling - Routine Musculoskeletal Exam Musculoskeletal: Present: normal strength, no tenderness, no erythema - Routine Skin Exam Present: intact, dry. Absent: rash - Routine Neurological Exam Present: alert, oriented X3, moving all extremities, vision grossly intact - Routine Psychiatric Exam Present: normal affect Hospital Course This is a general summary of the patient's hospital course. For more details refer to the complete medical record. Hospital course: 10/24/16 10:25 [place] The patient was seen by me at 9:45 am. She is sitting up in the chair, still feels weak. She has difficulty getting up to the commode by herself. She has not been seen by physical therapy and occupational therapy yet this morning. On physical exam she is alert and oriented 3. She is very pleasant. CV regular rate and rhythm without murmur Lungs are clear Abdomen bowel sounds are present. There is no guarding or rebound,mildly obese Will continue her potassium supplementation both IV and by mouth. Recheck lab in the morning. Her lab work was reviewed. It is concerning that she has persistent neutropenia and thrombocytopenia as well as her known history of anemia. Her meds were reviewed by the pharmacist both fentanyl hasa 1% asociation as well as omeprazole as a 1% association with neutropenia. She was started on fentanyl recently because of her lower back pain which radiates to both hips. The hope was to decrease the amount of [place] she required for pain. He requires she is using less [place], but she is willing to stop the fentanyl patch and see what happens with her white blood cell count. In addition she is not sure why she is on omeprazole will hold it at this time. Try to locate the results from her bone marrow biopsy done in 2013. She believes that was done by either Dr. Cash or Dr. Winters 10/25/16 14:26 10/25/16 14:27 Impression: Hypokalemia with slow improvement Weakness improving as her potassium increases, she is also working with physical therapy Paroxysmal atrial fibrillation Congestive heart failure-diastolic Chronic kidney disease Essential hypertension Hypothyroidism Adenocarcinoma of the colon in June 2016-was scheduled for a follow-up colonoscopy by Dr. Winters in November History of breast cancer 2008 Dementia Chronic anemia, neutropenia, and thrombocytopenia. Was discussed with Dr. Zuniga he would like to see her as an outpatient for follow-up bone marrow biopsy. At this time will resume her omeprazole as it does not appear her thrombocytopenia is due to a drug effect. Chronic back pain Chronic anticoagulation which was discontinued secondary to a GI bleed in June - previously on eliquis Depression Chronic cirrhosis Recommendations: Continue with oral potassium replacement Recheck her potassium level later today and in the morning Will recheck her CBC in the a.m., expect she will need further outpatient evaluation of her pancytopenia. Her levothyroxine has been increased to 25 g daily during this admission secondary to a modestly increased TSH Continue to work with physical therapy and increase her activity. 10/26/16 13:58 Impression: Hypokalemia, acute. * Slowly improving though potassium today was low at 3.2. Will increase daily dose to 40 mEq starting in AM and give an additional 20 mEq po now. Recheck BMP in AM to monitor electrolytes and renal function. Generalized Weakness, acute. * Continues to improve as her potassium increases. She reports feeling stronger each day and states that her activity level is back to her baseline prior to admission. Continue to encourage participation with therapy to improve functional ability and strength. Anticipate discharge in near future. May benefit from IRU. Paroxysmal atrial fibrillation, chronic. * Continue to monitor closely on telemetry. Continue home amiodarone. Congestive heart failure-diastolic, chronic. * Monitor closely for signs of fluid overload. Daily weight remaining stable. In light of hypokalemia, continue to hold metolazone. Chronic kidney disease, stage III - GFR 60. * Continue to monitor renal function. Essential hypertension, chronic. * Blood pressure well controlled. Continue to monitor closely. Continue home atenolol. In light of potassium depletion, continue to hold Bumex. Monitor closely for signs of fluid overload. Hypothyroidism, chronic. * Continue Synthroid 125mcg daily. Recheck TSH in ~6 weeks as TSH was elevated on admission. Adenocarcinoma of the colon in June 2016. * Was scheduled for a follow-up colonoscopy by Dr. Winters in November. Dementia, chronic. * Continue home medications including Aricept Chronic anemia, neutropenia, and thrombocytopenia. * Was discussed with Dr. Zuniga he would like to see her as an outpatient for follow-up bone marrow biopsy. At this time will resume her omeprazole as it does not appear her thrombocytopenia is due to a drug effect. Chronic back pain. * Continue with [place] and fentanyl patch for pain control. Continue prednisone for pain. Chronic anticoagulation with Eliquis - ON HOLD. * Eliquis discontinued secondary to a GI bleed in June. SCDs for DVT prophylaxis. Depression, chronic. * Continue home Depakote and Zoloft. Melatonin as needed for insomnia. Chronic cirrhosis. * Continue home Rifaximin. Overactive Bladder. * Continue home mirabegron. Monitor closely for signs of infection. 10/28/16 13:08 Impression: Hypokalemia, acute. * Decrease in potassium today at 3.3. In light of current hypernatremia with sodium at 146 and hypokalemia, will give 1L NS with 40 KCl x 1 bag now and continue to monitor electrolytes and renal function with repeat BMP in AM. Will continue oral potassium as ordered. Generalized Weakness, acute. * Continues to improve as her potassium increases. She reports feeling stronger each day and states that her activity level is back to her baseline prior to admission. Physical therapy recommends SNU-she wants to go back to assisted living-discussed with case management. Will obtain IRU screen as she would greatly benefit for intensive therapy. Pancytopenia, acute. * CBC today showed WBC 3.9, persistent anemia with slight improvement in hemoglobin at 11.7 and persistent thrombocytopenia with platelets at 65. Will continue to monitor closely and repeat CBC in AM to monitor blood counts. Recommend follow up with Dr. Zuniga as outpatient for bone marrow biopsy. Paroxysmal atrial fibrillation, chronic. * No change. Continue to monitor closely on telemetry. Continue home amiodarone. Congestive heart failure-diastolic, chronic. * No change. Continue home bumex 2mg daily. Continue to monitor closely for signs of fluid overload and daily weights. In light of hypokalemia, continue to hold metolazone. Chronic kidney disease, stage III - GFR 60. * No change. Continue to monitor renal function. Renal function stable. Repeat BMP in AM to monitor electrolytes and renal function. Essential hypertension, chronic. * No change. Blood pressure well controlled. Continue to monitor closely. Continue home atenolol. Monitor closely for signs of fluid overload. She is on Bumex 2 mg daily. Hypothyroidism, chronic. * No change. Continue Synthroid 125mcg daily. Recheck TSH in ~6 weeks as TSH was elevated on admission. Adenocarcinoma of the colon in June 2016. * Underwent colonoscopy by Dr. Winters today, 10/28. Results and recommendations pending. Appreciate Dr. Winters's time and expertise. Dementia, chronic. * No change. Continue home medications including Aricept Chronic back pain. * No change. Continue with [place] and fentanyl patch for pain control. Continue prednisone for pain- ideally would wean off prednisone. Continue with bowel motivation in light of narcotics. Chronic anticoagulation with Eliquis - ON HOLD. * No change. Eliquis discontinued secondary to a GI bleed in June. SCDs for DVT prophylaxis. Depression, chronic. * No change. Continue home Depakote and Zoloft. Melatonin as needed for insomnia. Chronic cirrhosis. * No change. Continue home Rifaximin. Overactive Bladder. * No change. Continue home mirabegron. 10/29/2016-Dr. Burroughs Impression Hypokalemia-resolved Chronic hypernatremia-worsened this morning, possibly with nothing by mouth status yesterday Generalized weakness-improving Pancytopenia-stable Paroxysmal A. fib chronic CHF-at baseline Chronic kidney disease-stable Hypertension-well controlled Plan Encourage by mouth fluids for hypernatremia. Hold tomorrow morning's Bumex until we can get a basic metabolic profile. I did talk to the welfare case worker about possible inpatient rehabilitation, the patient was evaluated and found to be doing "too well" to go to IRU. Plan is for discharge to senior care when medically stable. She will need frequent basic metabolic profiles to follow potassium and sodium. Possible discharge tomorrow Discussed with case management, her nurse, and the patient's son 10/31/16 18:09 10/30/2016-Dr. Burroughs Impression Hypokalemia-potassium is low again today, possibly secondary to Zaroxolyn yesterday which is a Thursday medicine for her Chronic hypernatremia-improved today Generalized weakness-overall worse today with low potassium. Pancytopenia-stable Paroxysmal A. fib chronic-anticoagulation is on hold after a GI bleed in June CHF-at baseline, she is on Bumex daily and Zaroxolyn Thursday, Thursday and Fridays Chronic kidney disease-stable Hypertension-well controlled Adenocarcinoma of the colon-repeat biopsies on colonoscopy 10/28/2016 show tubular adenoma with low-grade dysplasia and a second biopsy showing at least adenocarcinoma in situ. Mild dementia-stable Chronic cirrhosis-stable Depression-stable Plan We'll give an extra dose of potassium 40 mEq today. Repeat basic metabolic profile this afternoon. I did call and talk with Dr. Major Brown and he agrees with current treatment. The patient did have a new patient evaluation scheduled with him for tomorrow but that will have to be canceled. He does not have privileges to come to this hospital. He plans to see her the next time he comes to [facility], likely in 2 weeks. The patient will likely need an extra dose of potassium on Wednesdays and Fridays when she receives her Zaroxolyn. Continue to monitor renal function and CBC in light of her chronic kidney disease and pancytopenia. Adenocarcinoma with recent biopsies-treatment per Dr. Winters and her oncologist Dr. Zuniga With the patient's fluctuations in potassium, I do not think she is stable for transfer back to her care home at this point. I would like to see her potassium normal and stable before transfer. Discussed with the patient and case management. 11/01/2016--Dr. Yanes Feeling better today and ready to leave the hospital. Feels she needs more strengthening and rehab. Potassium recheck stable at 3.6. Discussed increasing her dosing on MWF when she takes her metolazone and bumex together to 80 meq and taking 40 meq KCl on the other days (//Thu/Thu) and she is agreeable to this plan. Discussed that potassium in the normal range is not the cause of her ongoing weakness and this is related likely to debility and lack of activity. Discussed with case management and nursing staff, [facility] New potassium orders placed with DC. Time spent with patient: discharge greater than 30 minutes Discharge Plan - Med Rec/Dispo Referrals/Follow Up: Sadie Taveras DO [Family Provider] - 2 Weeks [place] Instructions: Hypokalemia (GEN) Prescriptions: New Potassium Chloride [Micro-K] 40 meq PO WB 30 Days #160 capsule Continue Polyethylene Glycol 3350 [Miralax] 17 gm PO DAILY PRN #0 PRN Reason: CONSTIPATION Rifaximin [Xifaxan] 550 mg PO BID #0 tab predniSONE [Prednisone] 5 mg PO WB #0 Mirabegron [Myrbetriq] 25 mg PO DAILY #0 tab Hydrocodone/APAP 10/325 [[place] 10/325] 1 tab PO Q6H PRN PRN Reason: Pain Pramipexole [Mirapex] 1 mg PO DAILY Ospemifene [Osphena] 60 mg PO DAILY Ondansetron [Ondansetron Odt] 8 mg PO Q8H PRN PRN Reason: Nausea &/Or Vomiting Hydrocortisone [Anti-Itch] 1 applic TOP QID PRN PRN Reason: Rash Bacitracin Oint 1 applic TOP QID PRN PRN Reason: Prn Orders Saliva Substitute Mouthwash [Biotene Dry Mouth Oral Rinse] 1 applic PO BID PRN PRN Reason: Dry Mouth Melatonin/Pyridoxine HCl (B6) [Melatonin 5 mg Tablet] 5 - 10 mg PO HS Donepezil [Aricept] 5 mg PO HS Divalproex [Depakote] 500 mg PO DAILY #0 Levothyroxine Sodium 112 mcg PO ACB #0 Atenolol 50 mg PO DAILY #0 Amiodarone HCl 200 mg PO DAILY #0 Omeprazole 20 mg PO BID #0 Bumetanide 2 mg PO DAILY #0 fentaNYL [Fentanyl] 1 patch TOP Q72H #0 Sertraline [Zoloft] 100 mg PO DAILY Oxymetazoline Nasal [place] [Afrin Nasal [place]] 2 spray ALEXANDRO PRN PRN PRN Reason: Prn Orders Carboxymethylcellulose Sodium [Refresh Plus] 1 each EACH EYE TID PRN PRN Reason: Dry Eyes Metolazone [Zaroxolyn] 2.5 mg PO MOWEFR Discharge Instructions/Outpatient Orders: Final Provider Discharge Instructions Location: Determined By Patient - Disposition 03 To SNU Not [facility] ([facility])
== END 2016-11-01 11:25 | DRG 641 ==
LOC: ED 10:54 → MED 14:33
PROVIDERS: ADMIT Internal Medicine; ATTEND Internal Medicine

== ENCOUNTER 2017-08-19 08:46 | Inpatient (IN) ==
[2017-08-19] MEDS ORDERED: NS 1,000 ML IV ONE (08:57)
[2017-08-19] MEDS ORDERED: CEFEPIME 1 GM in NS 100 ML IV ONE (08:57)
--- NOTE | 2017-08-19 09:00 | Emergency Department Report ---
Fever HPI - General Chief Complaint: Fever Stated Complaint: fever,confusion Time Seen by Provider: 08/19/17 08:57 - Related Data Home Medications Medication Instructions Recorded Confirmed Levothyroxine Sodium 112 mcg PO ACB #0 07/05/15 05/26/17 Omeprazole 20 mg PO BID #0 07/11/16 05/26/17 Donepezil [Aricept 5 mg] 10 mg PO HS 10/23/16 05/26/17 Hydrocodone/APAP 10/325 [[place] 1 tab PO Q6H PRN 10/23/16 05/26/17 10/325] Melatonin/Pyridoxine HCl (B6) 10 mg PO HS 10/23/16 05/26/17 [Melatonin 5 mg Tablet] Acetaminophen [Acetaminophen ER] 650 mg PO Q4H PRN 05/26/17 05/26/17 Baclofen [Lioresal] 10 mg PO TID PRN 05/26/17 05/26/17 Capsaicin [Arthritis Pain 1 patch TP TID PRN 05/26/17 05/26/17 Relieving] Loratadine [Claritin] 10 mg PO DAILY PRN 05/26/17 05/26/17 Oxycodone CR [OxyCONTIN] 10 mg PO Q12H 05/26/17 05/26/17 Potassium Chloride [MICRO-K 10 mEq 20 meq PO WB 05/26/17 05/26/17 Capsule] Promethazine Supp [Phenergan Supp] 25 mg [place] Q12H PRN 05/26/17 05/26/17 Spironolactone [Aldactone 25 mg] 25 mg PO DAILY 05/26/17 05/26/17 Previous Rx's Medication Instructions Recorded CephALEXin [Keflex 500 mg] 500 mg PO TID #30 cap 05/26/17 Ondansetron [Zofran Odt] 1 tab PO Q4HR PRN #24 tab 05/26/17 Allergies Allergy/AdvReac Type Severity Reaction Status Date / Time phenylbutazone Allergy Mild HIVES Verified 08/19/17 08:57 (BUTAZOLIDIN - MANU DISC) lansoprazole AdvReac Mild DIARRHEA Verified 08/19/17 08:57 PFSH Patient Stated Medical History Dementia 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 Dental Problems Yes: DENTURES Other HEENT Yes: wears glasses Cardiac Arrhythmia Yes Congestive Heart Failure Yes Heart Murmur Yes Hypertension Yes Other Cardiology Yes: DVT Sleep Apnea Yes Gastroesophageal Reflux Yes Disease Hx Incontinence Yes: OCCASIONAL Other Musculoskeletal Yes: ARTHRITIS Sepsis Yes: 2017 Other Yes: low platelets, anemic Clinic Medical History (Last Updated 03/04/17 @ 15:05 by Radhika Gillespie APRN) 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 Colonoscopy 07/02/16- adenocarcinoma- [place]. 2012 colonoscopy normal, NO diverticula - [place]. 2016 colonoscopy normal in [facility] [place]. Colonoscopy, 1997, 2002, 2012. EGD and colonoscopy, 2001. Open cholecystectomy, 2001. Bilateral cataract extraction and lens implantation, 2000. Surgery for ankle spurs twice. TAHBSO with incidental appendectomy, 1983. Right Achilles tendon repair. Carpal tunnel release. Left knee replacement, 2004. Hemorrhoidectomy, 2005. Right corneal surgery. Posterior decompression and fusion at L4-L5, 2006. 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 L3-L4 decompression and extension of fusion to L2-L3, 2009. Septoplasty, 2011. Iliotibial band release of left hip, 2012. Permanent pacemaker placement, 2013. Bone marrow biopsy, 2013. L1-L2 Radical discectomy, L1-L2. Anterior lumbar interbody fusion , 2014. Back surgery, summer 2014 Family History: Family History (Last Updated 03/04/17 @ 15:06 by Radhika Gillespie APRN) Mother Pancreatic cancer Father High blood pressure - Social History Smoking status: Never smoker second hand exposure: No Substance use type: does not use Alcohol intake frequency: does not drink Housing: assisted living facility Does patient use chewing tobacco?: No Current residence: Assisted Living Disposition Prescriptions: No Action Hydrocodone/APAP 10/325 [[place] 10/325] 1 tab PO Q6H PRN PRN Reason: Pain Melatonin/Pyridoxine HCl (B6) [Melatonin 5 mg Tablet] 10 mg PO HS Donepezil [Aricept 5 mg] 10 mg PO HS Capsaicin [Arthritis Pain Relieving] 1 patch TP TID PRN PRN Reason: Pain Baclofen [Lioresal] 10 mg PO TID PRN PRN Reason: Muscle Spasm Potassium Chloride [MICRO-K 10 mEq Capsule] 20 meq PO WB Loratadine [Claritin] 10 mg PO DAILY PRN PRN Reason: Congestion Spironolactone [Aldactone 25 mg] 25 mg PO DAILY Acetaminophen [Acetaminophen ER] 650 mg PO Q4H PRN PRN Reason: Pain Promethazine Supp [Phenergan Supp] 25 mg [place] Q12H PRN PRN Reason: Nausea CephALEXin [Keflex 500 mg] 500 mg PO TID #30 cap Levothyroxine Sodium 112 mcg PO ACB #0 Omeprazole 20 mg PO BID #0 Oxycodone CR [OxyCONTIN] 10 mg PO Q12H Ondansetron [Zofran Odt] 1 tab PO Q4HR PRN #24 tab PRN Reason: Nausea Referrals: Sadie Taveras DO [Primary Care Provider] -
[2017-08-19] MEDS: SALINE FLUSH 10ml SYRINGE IVF PRN ×2 (09:13→20:00)
--- NOTE | 2017-08-19 09:34 | XRay Report ---
INDICATION: fever altered mental status sepsis evaluation PROCEDURE: CHEST 2-VIEWS UPRIGHT (PA & LAT) Encounter: Initial Comparison: May 26, 2017 Findings: The lungs are stable in appearance without new focal airspace consolidation. There is no pleural effusion or pneumothorax. The heart size, pulmonary vascularity and mediastinal contours are unchanged. Left pacemaker. IMPRESSION: Stable appearance of the chest without acute cardiopulmonary disease. .
--- NOTE | 2017-08-19 09:49 | CT Scan Report ---
Indication: fell hit head yesterday evaluate PROCEDURE: CT head/brain wo con: Encounter: Initial Comparison: November 23, 2013 Technique: Axial CT images through the head were performed without contrast. Iterative Reconstruction dose reducing technique was utilized. FINDINGS: Mild generalized atrophy. The ventricles are stable. There is no evidence of acute intracranial hemorrhage, midline displacement, or mass effect. There are scattered areas of low attenuation in the white matter which most likely represent changes of chronic microvascular ischemia. The CT attenuation of the brain parenchyma is otherwise normal within the cerebellum, brain stem, and cerebral hemispheres. The tympanic cavities and mastoid air cells are free of appreciable disease. There are no definite fractures of the skull base, calvarium, or visualized portion of the midface. Complete opacification of the left maxillary and left sphenoid sinuses with mucosal thickening in the left anterior ethmoid air cells as well. IMPRESSION: No CT evidence of acute traumatic intracranial injury. Left-sided sinusitis. .
[2017-08-19 11:40] VITALS: BMI 31.4
--- NOTE | 2017-08-19 12:12 | History & Physical Report ---
History of Present Illness Date: 08/19/17 Chief complaint: Fever, confusion HPI: Patient is an 81yo female who presents to ED via the [facility] due to progressive weakness, confusion and a fall yesterday. She is from [place]. PCP is Dr. Taveras. She tells me she is here b/c she slid off her chair yesterday and she is weak. She was dx'd with sepsis and UTI in ER and was given a dose of cefipime and a liter of NS. Her head CT was positive for L sided sinusitis (completely opacified maxillary and sphenoid sinuses and thickening in the L anterior ethmoid air cells.). UA was positive and culture is pending. CXR neg. WBC nl. She has 0 SIRS criteria and qSOFA score is 0 at time of admission interview. She denies urinary sxs. States she has had facial pain and headache, yet, on exam, has no significant sinus tenderness. She reports a recent h/o sudden back pain with opening a dresser drawer and states she has been working with PT for her back. Has chronic back pain. States she is on chronic prednisone for her chronic back pain. Review of Systems All systems PM: 10-point ROS was reviewed, no additional remarkable complaints except (pt c/o weakness, fatigue. She denies urinary sxs. SHe is able to tell me the date and location. 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 Colonoscopy 07/02/16- adenocarcinoma- [place]. 2012 colonoscopy normal, NO diverticula - [place]. 2016 colonoscopy normal in [facility]. EGD and colonoscopy, 2001. Open cholecystectomy, 2001. Bilateral cataract extraction and lens implantation, 2000. Surgery for ankle spurs twice. TAHBSO with incidental appendectomy, 1983. Right Achilles tendon repair. Carpal tunnel release. Left knee replacement, 2004. Hemorrhoidectomy, 2005. Right corneal surgery. Posterior decompression and fusion at L4-L5, 2006. 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 L3-L4 decompression and extension of fusion to L2-L3, 2009. Septoplasty, 2011. Iliotibial band release of left hip, 2013. Permanent pacemaker placement, 2013. Bone marrow biopsy, 2013. L1-L2 Radical discectomy , L1-L2. Anterior lumbar interbody fusion, 2014. Back surgery, summer 2014 Family History: Family History Mother Pancreatic cancer Father High blood pressure Family History: As Above - Social History Smoking status: Never smoker Substance use type: does not use Alcohol intake frequency: does not drink Housing: correction ([place]) Current occupational status: retired Previous occupational history: worked at [employer] for many years Social history: Dr Taveras - PCP Dr Hemphill - Cards Dr. Winters - surgeon Medications Home Medications Medication Instructions Recorded Confirmed Type Levothyroxine Sodium 112 mcg PO ACB #0 07/05/15 08/19/17 History Omeprazole 20 mg PO DAILY #0 07/11/16 08/19/17 History Donepezil [Aricept 5 mg] 10 mg PO HS 10/23/16 08/19/17 History Hydrocodone/APAP 10/325 [[place] 1 tab PO Q6H PRN 10/23/16 08/19/17 History 10/325] Baclofen [Lioresal] 10 mg PO TID PRN 05/26/17 08/19/17 History Capsaicin [Arthritis Pain 1 patch TP TID PRN 05/26/17 08/19/17 History Relieving] Loratadine [Claritin] 10 mg PO DAILY PRN 05/26/17 08/19/17 History Potassium Chloride [MICRO-K 10 mEq 20 meq PO BID 05/26/17 08/19/17 History Capsule] Spironolactone [Aldactone 25 mg] 25 mg PO DAILY 05/26/17 08/19/17 History Acetaminophen 650 mg PO Q4H PRN 08/19/17 08/19/17 History Amiodarone HCl [Pacerone] 100 mg PO DAILY 08/19/17 08/19/17 History Atenolol [Tenormin] 50 mg PO DAILY 08/19/17 08/19/17 History Bacitracin [Bacitraycin Plus] 1 applicatio TP QID PRN 08/19/17 08/19/17 History Bumetanide [Bumetanide] 2 mg PO DAILY 08/19/17 08/19/17 History Carboxymethylcellulose Sodium 1 drop EACH EYE TID PRN 08/19/17 08/19/17 History [Refresh Plus] Divalproex [Depakote] 250 mg PO DAILY 08/19/17 08/19/17 History Hydrocortisone [Cortisone] 1 applicatio TP QID PRN 08/19/17 08/19/17 History Loperamide HCl [Imodium A-D] 2 mg PO QID PRN 08/19/17 08/19/17 History Melatonin 10 mg PO HS 08/19/17 08/19/17 History Mirabegron [Myrbetriq] 25 mg PO DAILY 08/19/17 08/19/17 History Ondansetron HCl [Zofran] 8 mg PO Q8H PRN 08/19/17 08/19/17 History Ondansetron [Zofran Odt] 4 mg PO Q4HR PRN 08/19/17 08/19/17 History Ospemifene [Osphena] 60 mg PO DAILY 08/19/17 08/19/17 History Oxycodone CR [Oxycontin] 15 mg PO Q12H 08/19/17 08/19/17 History Oxymetazoline Nasal [place] [Afrin 2 spray NS PRN PRN 08/19/17 08/19/17 History Nasal [place]] Peg 3350 238 G Bottle [Miralax] 17 gm PO DAILY PRN 08/19/17 08/19/17 History Pramipexole [Mirapex] 1 mg PO DAILY 08/19/17 08/19/17 History PredniSONE [Deltasone 5 mg] 5 mg PO WB 08/19/17 08/19/17 History Saliva Substitute Combo No.9 1 applicatio MM PRN PRN 08/19/17 08/19/17 History [Biotene] Sertraline [Zoloft] 100 mg PO DAILY 08/19/17 08/19/17 History guaiFENesin [Mucinex] 600 mg PO Q12H PRN 08/19/17 08/19/17 History Allergies Allergy/AdvReac Type Severity Reaction Status Date / Time phenylbutazone Allergy Mild HIVES Verified 08/19/17 08:57 (BUTAZOLIDIN - MANU DISC) lansoprazole AdvReac Mild DIARRHEA Verified 08/19/17 08:57 Exam Vital Signs: Temperature 98.1 F 08/19/17 11:46 Pulse Rate 62 08/19/17 11:37 Respiratory Rate 18 08/19/17 11:37 Blood Pressure 125/65 08/19/17 11:37 Pulse Oximetry 95 08/19/17 11:37 Height/Weight/BMI: Height 1.63 m Weight 83.2 kg Body Mass Index 31.4 - Constitutional Present: well nourished, well developed, obese, cooperative, other (drowsy) - Routine HEENT Exam Head: Present: normocephalic, atraumatic Eye: Present: EOMI, PERRL ENT: Present: mucous membranes moist, oropharynx clear - Routine Neck Exam Present: supple. Absent: lymphadenopathy, thyromegaly - Routine Respiratory Exam Present: CTA bilaterally. Absent: wheezes - Routine Cardiovascular Exam Present: RRR, murmur - Routine Abdominal Exam Present: soft, normoactive bowel sounds, tenderness (epigastric and RLQ). Absent: distended - Routine Extremities Exam Present: edema (1+ b/l), normal capillary refill Comments: chronic venous stasis changes to b/l LE's - Routine Skin Exam Present: dry, warm Comments: quarter sized palpable mass on R lower back/upper buttock with overlying erythema. Mass is firm, no fluctuance. Somewhat tender to palpation. No drainage, no pustule formation. Superficial skin breakdown - appears to be related to pressure. - Routine Neurological Exam Present: oriented X3, CN II-XII intact. Absent: alert (drowsy - dozes off during exam), normal speech (speech is slow) - Routine Psychiatric Exam Present: cooperative Comments: dull affect Results - Labs CBC & Chem 7: 08/19/17 09:09 08/19/17 09:09 Labs: Laboratory Tests 08/19/17 10:01 Ur Collection Type Urine, void-cc/notcc Urine Color Yellow Urine Clarity Clear Urine pH 7.0 Ur Specific [place] 1.010 L Urine Protein Negative Urine Glucose (UA) Negative Urine Ketones Negative Urine Occult Blood Negative Urine Nitrate Positive A Urine Bilirubin Negative Urine Urobilinogen 2.0 Ur Leukocyte Esterase 1+ A Urine RBC 0-1 Urine WBC 10-20 H Ur Squamous Epith Cells 5-10 Urine Bacteria 4+ H Hyaline Casts 1-3 - Imaging and Cardiology Chest x-ray Additional comments: Date of Exam: 08/19/17 INDICATION: fever altered mental status sepsis evaluation PROCEDURE: CHEST 2-VIEWS UPRIGHT (PA & LAT) Findings: The lungs are stable in appearance without new focal airspace consolidation. There is no pleural effusion or pneumothorax. The heart size, pulmonary vascularity and mediastinal contours are unchanged. Left pacemaker. IMPRESSION: Stable appearance of the chest without acute cardiopulmonary disease. CT scan - head Additional comments: Date of Exam: 08/19/17 Indication: fell hit head yesterday evaluate PROCEDURE: CT head/brain wo con: FINDINGS: Mild generalized atrophy. The ventricles are stable. There is no evidence of acute intracranial hemorrhage, midline displacement, or mass effect. There are scattered areas of low attenuation in the white matter which most likely represent changes of chronic microvascular ischemia. The CT attenuation of the brain parenchyma is otherwise normal within the cerebellum, brain stem, and cerebral hemispheres. The tympanic cavities and mastoid air cells are free of appreciable disease. There are no definite fractures of the skull base, calvarium, or visualized portion of the midface. Complete opacification of the left maxillary and left sphenoid sinuses with mucosal thickening in the left anterior ethmoid air cells as well. IMPRESSION: No CT evidence of acute traumatic intracranial injury. Left-sided sinusitis. 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 Was discussed with Dr. Zuniga during previous hospitalization. Currently unknown if this was ever worked up. Chronic back pain Depression Chronic cirrhosis Plan Admit, IP. Stay expected to exceed two overnights due to infection/elevated lactate and comorbidities. Given 1L NS in ER. Bolus another 500nl NS. Cefipime given in ER. Dr. Cruz to determine further antibiotic tx. Check troponin and EKG. Repeat CBC and BMP in am to follow blood counts and renal function. Check TSH - previous TSH in 11/06 was 8.4 Reflex lactate pending. Wound clinic consult re: findings on lower R back SCD's for VTE ppx. Defer Lovenox given her thrombocytopenia. Pt requests DNR status. Care to return to Dr. Taveras on DC. DVT Prophylaxis: SCD's GI Prophylaxis: Protonix Resuscitation Status: Do Not Resuscitate - Physician Narrative Physician: other (Dr Cruz) Narrative: Date: 08/19/17 Time: 1730 S: Pt alert and oriented and in no acute distress. Reports slid off chair but did not lose consciousness. Denies any cp, sob, n/v/d, f/c. Denies any facial pain, tooth ache, cold/flu sx's. Reports chronic headaches. Denies acute change in cough or congestion. Reports some allergies. Denies any urinary sx's. Pt reports mild tenderness on lump on right buttocks and reports it has been there for many months without much change. O: Gen: AAOx3, no acute distress Lungs: CTAB without wheezes A/P; Pt likely has UTI which led to mentation change that was reported, pt currently seems to be doing well, no cellulitis is appreciated. No sinus tenderness is appreciated during exam and no sx's are reported so will hold off on tx for sinusitis as reported on CT. Will get surgery to take a look at lump on right buttocks. Will do Rocephin for UTI and await urine cx. Hospital Course Summary Disclaimer: The visit summary below is not to be considered part of the above Progress Note. Hospital Course: 08/19/17 Admit, IP. Stay expected to exceed two overnights due to infection/elevated lactate and comorbidities. Given 1L NS in ER. Bolus another 500nl NS. Cefipime given in ER. Dr. Cruz to determine further antibiotic tx. Check troponin and EKG. Repeat CBC and BMP in am to follow blood counts and renal function. Check TSH - previous TSH in 11/06 was 8.4 Reflex lactate pending. Wound clinic consult re: findings on lower R back SCD's for VTE ppx. Defer Lovenox given her thrombocytopenia. Pt requests DNR status. Care to return to Dr. Taveras on DC.
[2017-08-19] MEDS ORDERED: NS 500 ML IV ONE (13:47)
[2017-08-19] MEDS ORDERED: ACETAMINOPHEN 325 MG TABLET PO PRN (14:06)
[2017-08-19] MEDS ORDERED: ONDANSETRON ODT 4 MG TABLET PO PRN (14:07)
[2017-08-19] MEDS ORDERED: REFRESH CLASSIC Eye Drops 0.4ml EACH EYE PRN (16:28)
--- NOTE | 2017-08-19 16:30 | Wound Care Progress Note ---
Wound Center Progress Note: Pt seen for wound consultation r/t bilateral erythemic toes and R gluteal wound. Seen with Henny SANTIZO. Pt finishing using bedside commode. Reports her bottom is "sore." Pt has an open wound to R upper medial buttock; she reports she has had this for a few months, she has noticed pain in this area, but did not realize the wound was open. R upper medial buttock: partial thickness, red non-granulating tissue, no active drainage. Periwound: indurated, raised, blanchable erythema, painful to palpation. Nurse reports the hospitalist has ordered a surgical consult. Bilateral toes: pt reports her toes are usually red. All toes have blanchable erythema. R great toe has some purple red discoloration. Off load R buttock with repositioning. Apply mepilex to R buttock for drainage PRN.
--- NOTE | 2017-08-19 16:32 | Wound Care Progress Note ---
Wound Management - Patient Status Premedicated Prior to Dressing Change: No - Wound Right Upper Medial Buttock Wound Type: Open Wound Wound Present on Admission?: Yes Length: 1.5 Width: 1.5 Depth: 0.1 Wound Bed Appearance: [place] Wound Appearance: Indurated Tunneling: No Undermining: No Drainage Amount: None Drainage Odor: No Odor Dressing Status: Open to Air (Apply mepilex for drainage PRN.)
[2017-08-19] MEDS: REFRESH CLASSIC Eye Drops 0.4ml EACH EYE PRN ×2 (16:38→20:00)
[2017-08-19] MEDS ORDERED: CEFTRIAXONE 1 G in NS 100 ML IV SCH (17:30)
[2017-08-19] MEDS: HYDROCODONE/APAP 10 MG/325 MG TABLET PO PRN (20:00)
[2017-08-19] MEDS: DONEPEZIL 10 MG TABLET PO SCH (20:00)
[2017-08-20] MEDS: OMEPRAZOLE 20 MG CAPSULE PO SCH (05:31)
[2017-08-20] MEDS: LEVOTHYROXINE 112 MCG TABLET PO SCH (05:32)
[2017-08-20] MEDS ORDERED: PANTOPRAZOLE 20 MG TABLET PO SCH (06:30)
[2017-08-20] MEDS: MIRABEGRON 25mg TABLET PO SCH (08:21)
[2017-08-20] MEDS: SERTRALINE 100 MG TABLET PO SCH (08:21)
[2017-08-20] MEDS: BUMETANIDE 1 MG TABLET PO SCH (08:21)
[2017-08-20] MEDS: DIVALPROEX 250 MG TABLET PO SCH (08:21)
[2017-08-20] MEDS: PredniSONE 5 MG TABLET PO SCH (08:21)
[2017-08-20] MEDS: PRAMIPEXOLE 1 MG TABLET PO SCH (08:21)
[2017-08-20] MEDS: SPIRONOLACTONE 25 MG TABLET PO SCH (08:21)
[2017-08-20] MEDS: ATENOLOL 50 MG TABLET PO SCH (08:21)
[2017-08-20] MEDS: AMIODARONE 200 MG TABLET PO SCH (08:22)
[2017-08-20] MEDS: HYDROCODONE/APAP 10 MG/325 MG TABLET PO PRN (08:23)
[2017-08-20] MEDS: POLYETHYL GLYCOL 3350 17gm PACKET PO SCH (08:30)
--- NOTE | 2017-08-20 12:38 | Progress Note ---
- Date 08/20/17 Subjective: Bhavna was c/o lower back pain (chronic). She was alert but drowsy. Her responses were delayed and she didn't consistently answer questions or complete her sentences. She denied SOA. She complained of abdominal tenderness on palpation but denied nausea/vomiting. Her nurse reported that she's been doing well and primary concern is pain control. Objective Vital signs: Temperature 99.5 F 08/20/17 07:00 Pulse Rate 59 L 08/20/17 08:00 Respiratory Rate 16 08/20/17 08:23 Blood Pressure 116/59 08/20/17 07:00 Pulse Oximetry 93 08/20/17 07:00 Height/Weight/BMI: Height 1.63 m Weight 86.2 kg Body Mass Index 31.4 - Constitutional Present: no acute distress, well nourished, well developed, obese - Routine HEENT Exam Head: Present: normocephalic Eye: Present: PERRL. Absent: conjunctival icterus, scleral injection - Routine Respiratory Exam Present: CTA bilaterally - Routine Cardiovascular Exam Present: RRR, S1, S2, murmur (2-3/6) - Routine Abdominal Exam Present: soft, normoactive bowel sounds, tenderness (pt c/o diffuse tenderness upon palpation - this was minimal and there was no rebound/guarding), distended (mild) - Routine Extremities Exam Present: edema (1+), pulses intact - Routine Musculoskeletal Exam Musculoskeletal: Present: moving extremities well, other (mild soft tissue protrusion left lower back) - Routine Skin Exam Present: intact, dry, warm - Routine Neurological Exam Present: alert, CN II-XII intact, moving all extremities, vision grossly intact , hearing grossly intact - Routine Psychiatric Exam Present: cooperative Results - Labs CBC & Chem 7: 08/20/17 04:17 08/20/17 04:17 Assessment and Plan Assessment and Plan: Assessment Severe sepsis (lactate 2.7) secondary to E. coli UTI L sided sinusitis Painful lump on lower back - r/o abscess vs stage 1 pressure ulcer over a lipoma /fibroma Encephalopathy RONAL on CKD Hypernatremia not POA Macrocytic anemia -DARYL Chronic anemia and thrombocytopenia. Was discussed with Dr. Zuniga during previous hospitalization. Currently unknown if this was ever worked up. 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 coli UTI - sensitivities pending. Lactate trending down 2.7 --> 1.7. Afebrile; WBC normal. Viral resp panel pending. TSH was 2.8; improving. Weight trending up; resp status stable. Cont Bumex. Renal function improving; cr 1.5 --> 1.4 (baseline approx 1.1). Monitor NA (up to 146). Tylenol, heating pad for back pain. With encephalopathy would not recommend narcotics. Increase bowel regimen. DVT Prophylaxis: SCD's GI Prophylaxis: Protonix Resuscitation Status: Do Not Resuscitate - Physician Narrative Narrative: Date: 08/20/17 Time: 1334 S: Pt more awake this am and is alert and oriented. . Denies any n/v/d, f/c, cp or sob. Denies any urinary sx's. O: Gen: AAOx3, no acute distress Cards: RRR without murmurs Lungs: CTAB, no wheezes A/P: Will cont. uti tx, decrease hydrocodone from 10 to 5 as the pain meds may be somewhat responsible for the drowsiness, will do US for the lump on the lower back as surgery wants this done first before seeing pt. Hospital Course Summary Disclaimer: The visit summary below is not to be considered part of the above Progress Note. Hospital Course: 08/19/17 Admit, IP. Stay expected to exceed two overnights due to infection/elevated lactate and comorbidities. Given 1L NS in ER. Bolus another 500nl NS. Cefipime given in ER. Dr. Cruz to determine further antibiotic tx. Check troponin and EKG. Repeat CBC and BMP in am to follow blood counts and renal function. Check TSH - previous TSH in 11/06 was 8.4 Reflex lactate pending. Wound clinic consult re: findings on lower R back SCD's for VTE ppx. Defer Lovenox given her thrombocytopenia. Pt requests DNR status. Care to return to Dr. Taveras on DC. 08.20.17 Cont Rocephin day #2 for E. coli UTI - sensitivities pending. Lactate trending down 2.7 --> 1.7. Afebrile; WBC normal. Viral resp panel pending. TSH was 2.8; improving. Weight trending up; resp status stable. Cont Bumex. Renal function improving; cr 1.5 --> 1.4 (baseline approx 1.1) Tylenol, heating pad for back pain. With encephalopathy would not recommend narcotics. Increase bowel regimen.
[2017-08-20] MEDS ORDERED: BISACODYL 10 MG SUPPOSITORY RECTALLY PRN (12:40)
[2017-08-20] MEDS ORDERED: HYDROCODONE/APAP 5mg/325mg TABLET PO PRN (13:44)
--- NOTE | 2017-08-20 16:00 | Ultrasound Report ---
Indication: right buttocks lump PROCEDURE: US soft tissue buttocks: Encounter: Initial Comparison: None Technique/findings/ Impression: Grayscale and color Doppler sonographic imaging of the area of clinical concern in the right gluteal region shows a hyperechoic 3.3 x 2.1 x 3.3 cm subcutaneous lesion possibly representing a benign lipoma. No evidence of an abscess or acute hematoma. .
[2017-08-20] MEDS: CEFTRIAXONE 1 G in NS 100 ML IV SCH (17:01)
[2017-08-20] MEDS: DONEPEZIL 10 MG TABLET PO SCH (20:22)
[2017-08-20] MEDS: SENNA + DOCUSATE TABLET PO SCH (20:23)
[2017-08-20] MEDS ORDERED: HYDROCODONE/APAP 10 MG/325 MG TABLET PO PRN (23:25)
[2017-08-21] MEDS: OMEPRAZOLE 20 MG CAPSULE PO SCH (06:08)
[2017-08-21] MEDS: LEVOTHYROXINE 112 MCG TABLET PO SCH (06:09)
[2017-08-21] MEDS: AMIODARONE 200 MG TABLET PO SCH (09:15)
[2017-08-21] MEDS: PredniSONE 5 MG TABLET PO SCH (09:15)
[2017-08-21] MEDS: BUMETANIDE 1 MG TABLET PO SCH (09:16)
[2017-08-21] MEDS: DIVALPROEX 250 MG TABLET PO SCH (09:16)
[2017-08-21] MEDS: ATENOLOL 50 MG TABLET PO SCH (09:16)
[2017-08-21] MEDS: SENNA + DOCUSATE TABLET PO SCH ×2 (09:17→20:20)
[2017-08-21] MEDS: PRAMIPEXOLE 1 MG TABLET PO SCH (09:17)
[2017-08-21] MEDS: SPIRONOLACTONE 25 MG TABLET PO SCH (09:17)
[2017-08-21] MEDS: MIRABEGRON 25mg TABLET PO SCH (09:17)
[2017-08-21] MEDS: SERTRALINE 100 MG TABLET PO SCH (09:17)
[2017-08-21] MEDS: POLYETHYL GLYCOL 3350 17gm PACKET PO SCH (09:17)
--- NOTE | 2017-08-21 12:31 | Progress Note ---
- Date 08/21/17 Subjective: Patient seen in follow-up of sepsis/UTI. She continues to have complaints of back pain and diffuse pain which is chronic for her. She continues to be drowsy , unclear if this is related to her infection versus her pain medication. She's not been eating well, 25% of meals. Patient has no complaints of chest pain, shortness of breath, nausea, vomiting, fever or chills. Has not had any urinary symptoms throughout her stay. Objective Vital signs: Temperature 98.4 F 08/21/17 08:00 Pulse Rate 60 08/21/17 08:00 Respiratory Rate 12 08/21/17 08:00 Blood Pressure 114/53 08/21/17 08:00 Pulse Oximetry 95 08/21/17 08:00 Height/Weight/BMI: Height 1.63 m Weight 84.4 kg Body Mass Index 31.4 - Constitutional Present: no acute distress, well nourished, well developed, somnolent - Routine HEENT Exam Head: Present: normocephalic, atraumatic - Routine Respiratory Exam Present: CTA bilaterally. Absent: wheezes - Routine Cardiovascular Exam Present: RRR, no murmur - Routine Abdominal Exam Present: soft, tenderness (diffuse), distended (mild). Absent: rebound, guarding - Routine Extremities Exam Present: no edema, normal capillary refill - Routine Skin Exam Present: dry, warm - Routine Neurological Exam Absent: alert (drowsy) - Routine Lymphatic Exam Lymphatic: Absent: adenopathy - Routine Psychiatric Exam Present: normal affect, cooperative Results - Labs CBC & Chem 7: 08/21/17 04:07 08/21/17 04:07 Microbiology Results: Urine culture-Escherichia coli pansensitive Assessment and Plan Assessment and Plan: Assessment Severe sepsis (lactate 2.7) secondary to E. coli UTI L sided sinusitis Painful lump on lower back - r/o abscess vs stage 1 pressure ulcer over a lipoma /fibroma Encephalopathy RONAL on CKD Hypernatremia not POA Macrocytic anemia -DARYL Chronic anemia and thrombocytopenia. Was discussed with Dr. Zuniga during previous hospitalization. Currently unknown if this was ever worked up. 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 coli UTI - pansensitive. Afebrile; WBC normal. Weight down (86.2-->84.4kg) rom yesterday but up from baseline (Baseline 78-80 kg). Resp status stable. Cont Bumex. Renal function is still above baseline at 1.5 (baseline approx 1.1). Sodium continues to be slightly elevated 146-->145. Tylenol, heating pad for back pain. With continued significant drowsiness will cut back on narcotics. She is on long-acting oxy routinely, will decrease [place] from 10 mg every 8 hours when necessary to 5 mg every 6 hours when necessary. No BM since admission. Diffuse mild tenderness and some distention. Give Dulcolax suppository now. Continue bowel regimen. Ultrasound to mass on right lower back revealed lipoma. Will keep pressure off of this area and see if pain improves. Would defer surgical intervention at this time. If symptoms do not improve with keeping pressure off of the area would consider surgical intervention at that time. Will cancel surgical consult with Dr. Barboza. Discussed with him. DVT Prophylaxis: SCD's Resuscitation Status: Do Not Resuscitate - Physician Narrative Physician: Wanda Ortega MD Narrative: Date: 08/21/17 Time: 1949 I have independently evaluated and examined this patient. I reviewed the chart, the patient's history, and the KEY PERSON/PA's documented findings as above. We discussed and formulated the assessment and plan as above with additions as below: Mrs. Liu reports urinary urgency but no dysuria; she expressed concern that the "lump" on her back would come to a head or form a boil due to infection and lead to sepsis as this is apparently happened in the past. Reports Dr. Brown reduced potassium supplement when seen recently. NAD, eating supper when seen and relatively alert at present Respirations nonlabored, good airflow, breath sounds clear Abdomen soft and nontender, no suprapubic tenderness Creatinine stable at 1.5 but remains above recent baseline of 1.0-1.1. Volume status appears good and hemodynamically stable. Agree with reduction in narcotics as above-discussed with Rika earlier. Soft tissue sonogram reviewed-no indication of abscess or hematoma; appears to be lipoma. Patient reassured. Pansensitive Escherichia coli-if mental status stable in a.m. can probably change to oral antibiotics and consider discharge to nursing facility. Hospital Course Summary Disclaimer: The visit summary below is not to be considered part of the above Progress Note. Hospital Course: 08/19/17 Admit, IP. Stay expected to exceed two overnights due to infection/elevated lactate and comorbidities. Given 1L NS in ER. Bolus another 500nl NS. Cefipime given in ER. Dr. Cruz to determine further antibiotic tx. Check troponin and EKG. Repeat CBC and BMP in am to follow blood counts and renal function. Check TSH - previous TSH in 11/06 was 8.4 Reflex lactate pending. Wound clinic consult re: findings on lower R back SCD's for VTE ppx. Defer Lovenox given her thrombocytopenia. Pt requests DNR status. Care to return to Dr. Taveras on DC. 08.20.17 Cont Rocephin day #2 for E. coli UTI - sensitivities pending. Lactate trending down 2.7 --> 1.7. Afebrile; WBC normal. Viral resp panel pending. TSH was 2.8; improving. Weight trending up; resp status stable. Cont Bumex. Renal function improving; cr 1.5 --> 1.4 (baseline approx 1.1) Tylenol, heating pad for back pain. With encephalopathy would not recommend narcotics. Increase bowel regimen. 08/21/17 Cont Rocephin day #3 for E. coli UTI - pansensitive. Afebrile; WBC normal. Weight down (86.2-->84.4kg) rom yesterday but up from baseline (Baseline 78-80 kg). Resp status stable. Cont Bumex. Renal function is still above baseline at 1.5 (baseline approx 1.1). Sodium continues to be slightly elevated 146-->145. Tylenol, heating pad for back pain. With continued significant drowsiness will cut back on narcotics. She is on long-acting oxy routinely, will decrease [place] from 10 mg every 8 hours when necessary to 5 mg every 6 hours when necessary. No BM since admission. Diffuse mild tenderness and some distention. Give Dulcolax suppository now. Continue bowel regimen. Ultrasound to mass on right lower back revealed lipoma. Will keep pressure off of this area and see if pain improves. Would defer surgical intervention at this time. If symptoms do not improve with keeping pressure off of the area would consider surgical intervention at that time. Will cancel surgical consult with Dr. Barboza. Discussed with him.
[2017-08-21] MEDS ORDERED: HYDROCODONE/APAP 10 MG/325 MG TABLET PO PRN (12:47)
[2017-08-21] MEDS ORDERED: HYDROCODONE/APAP 5mg/325mg TABLET PO PRN (13:08)
[2017-08-21] MEDS ORDERED: BISACODYL 10 MG SUPPOSITORY RECTALLY ONE (13:09)
[2017-08-21] MEDS: CEFTRIAXONE 1 G in NS 100 ML IV SCH (16:50)
[2017-08-21] MEDS: SALINE FLUSH 10ml SYRINGE IVF PRN (16:51)
[2017-08-21] MEDS: DONEPEZIL 10 MG TABLET PO SCH (20:19)
[2017-08-22 00:20] VITALS: RESP 16
[2017-08-22] MEDS: REFRESH CLASSIC Eye Drops 0.4ml EACH EYE PRN (01:25)
[2017-08-22] MEDS: OMEPRAZOLE 20 MG CAPSULE PO SCH (06:37)
[2017-08-22] MEDS: LEVOTHYROXINE 112 MCG TABLET PO SCH (06:37)
[2017-08-22] MEDS: PredniSONE 5 MG TABLET PO SCH (08:26)
[2017-08-22] MEDS: ATENOLOL 50 MG TABLET PO SCH (08:27)
[2017-08-22] MEDS: DIVALPROEX 250 MG TABLET PO SCH (08:27)
[2017-08-22] MEDS: SPIRONOLACTONE 25 MG TABLET PO SCH (08:27)
[2017-08-22] MEDS: SENNA + DOCUSATE TABLET PO SCH (08:27)
[2017-08-22] MEDS: MIRABEGRON 25mg TABLET PO SCH (08:27)
[2017-08-22] MEDS: BUMETANIDE 1 MG TABLET PO SCH (08:27)
[2017-08-22] MEDS: PRAMIPEXOLE 1 MG TABLET PO SCH (08:27)
[2017-08-22] MEDS: SERTRALINE 100 MG TABLET PO SCH (08:28)
[2017-08-22] MEDS: POLYETHYL GLYCOL 3350 17gm PACKET PO SCH (08:28)
[2017-08-22] MEDS: AMIODARONE 200 MG TABLET PO SCH (08:28)
--- NOTE | 2017-08-22 12:42 | Progress Note ---
- Date 08/22/17 Subjective: Bhavna is seen today in follow-up. She continues to appear fairly sleepy, that is easily arousable and is a good historian. She reports that she is "hurting all over". She appears to have some generalized weakness as well. Reports her pain is in multiple joints. She does feel that this is worse than her normal amount of chronic pain. She continues to complain of a right sacral "lump" that has been present for some time. She reports that this started when she bent over and felt a pop while getting something out of her dresser at home. She has undergone imaging both at [facility], and in [place] which did not reveal any findings. She does have a prior history of extensive instrumentation and fusion of her lumbar spine. Again, her main complaint today is generalized worsening pain. She also has generalized weakness. She does not feel that she is ready to return back to her normal facility today. I did review with her any other atypical exposures, light tickborne illness or mosquito bites recently. She states that she lives in a nursing facility, and is not outside frequently. No recent known tick or mosquito exposures per her knowledge. She does not have pets, and has not been exposed to any pets at the facility. She is still not eating very well. Objective Vital signs: Temperature 98.9 F 08/22/17 07:40 Pulse Rate 59 L 08/22/17 08:00 Respiratory Rate 16 08/22/17 07:40 Blood Pressure 111/54 08/22/17 07:40 Pulse Oximetry 97 08/22/17 07:40 Height/Weight/BMI: Height 1.63 m Weight 84.4 kg Body Mass Index 31.4 Comments: Gen.: Patient is awake, alert. She appears ill and generally weak. She requires assistance for movement in her bed. Cheeks are flushed. Eyes: Sclera is anicteric. ENT: Mouth is dry. Neck: Supple. Cardiovascular: S1, S2. No pedal edema. No appreciable murmurs. Pulmonary: Lungs are clear to auscultation bilaterally. Respirations even, unlabored. Abdomen: Soft, nontender, nondistended. Back: She does have approximately 3 cm size palpable soft tissue mass. There is a 1 cm area that is denuded over the top. top is mildly red, does not appear warm. There is no apparent purulent drainage. Extremities: She does demonstrate generalized weakness. There is no appreciable joint effusions to palpation, differently and shoulders where she is complaining of majority of her pain is. No Obvious edema, no cyanosis or clubbing. Neuro: She is awake, appropriate. Does appear a bit somnolent at times but easily arousable as detailed above. Generalized weakness is noted. She does require assistance for moving around in bed, and general ADLs. She does seem to have a very mild start of bilateral foot drop, but is able to move her lower extremities to command. Results - Labs CBC & Chem 7: 08/21/17 04:07 08/22/17 04:40 Microbiology Results: Microbiology 08/19/17 09:09 Blood Culture - Preliminary Peripheral/Iv Start No Growth After 3 Days 08/19/17 09:13 Blood Culture - Preliminary Peripheral/Iv Start No Growth After 3 Days Urine: Escherichia coli, pansensitive Viral panel negative - Impressions Technique/findings/ Impression: Grayscale and color Doppler sonographic imaging of the area of clinical concern in the right gluteal region shows a hyperechoic 3.3 x 2.1 x 3.3 cm subcutaneous lesion possibly representing a benign lipoma. No evidence of an abscess or acute hematoma. . Assessment and Plan (1) Urinary tract infection Current visit: Yes Status: Acute Assessment and Plan: Assessment Severe sepsis (lactate 2.7) secondary to E. coli UTI L sided sinusitis Painful lump on lower back - r/o abscess vs stage 1 pressure ulcer over a lipoma /fibroma Encephalopathy RONAL on CKD Hypernatremia not POA Macrocytic anemia -DARYL Chronic anemia and thrombocytopenia. Was discussed with Dr. Zuniga during previous hospitalization. Currently unknown if this was ever worked up. Paroxysmal atrial fibrillation - no anticoagulation due to h/o GI bleed and thrombocytopenia Congestive heart failure-diastolic Essential hypertension Hypothyroidism Adenocarcinoma of the colon - in situ of colon polyp ascending colon ( colonoscopy 03/08 Dr Winters - recommends conservative tx - no surgery.) History of breast cancer 2008 Dementia Chronic back pain Depression Chronic cirrhosis Plan 08/22/17 Cont Rocephin day #4 for E. coli UTI - pansensitive. Afebrile; WBC normal. Patient continues to appear ill. Generalized pain is concerning as well. Generalized weakness is also concerning, however I am unsure of her baseline. Concern for secondary acute viral illness, versus a polymyalgia rheumatica picture. I suspect that she may have an underlying inflammatory disorder given the fact she is on daily prednisone at home. Assess CPK to rule out myopathy. Assess CRP, and also send out a sedimentation rate to further evaluate for PMR. Increase her prednisone to 20 mg daily to see if that helps with her weakness and pain. Get a PT evaluation. She will likely have a reactive leukocytosis with increase in steroids. She does appear dehydrated, acute kidney injury persists. We'll provide gentle IV fluids, one half normal saline, 500 mls only and repeat labs in the morning. We'll continue her current Bumex and Aldactone, but we may need to back that down a bit if persist. She does have known paroxysmal atrial fibrillation, rate is controlled on telemetry. Continue supportive care. At this point, we need to continue inpatient monitoring and telemetry see some improvement in her symptoms. She continues to have pain in that right cyst, sacral area. Going to continue to monitor for now. Does not appear acutely infected. She has been fairly significantly evaluated regarding her low back pain, will defer further imaging at this time. Repeat labs in the morning. CODE STATUS: DO NOT RESUSCITATE. - Physician Narrative Narrative: Date: 08/22/17 Time: 1238 Hospital Course Summary Disclaimer: The visit summary below is not to be considered part of the above Progress Note. Hospital Course: 08/19/17 Admit, IP. Stay expected to exceed two overnights due to infection/elevated lactate and comorbidities. Given 1L NS in ER. Bolus another 500nl NS. Cefipime given in ER. Dr. Cruz to determine further antibiotic tx. Check troponin and EKG. Repeat CBC and BMP in am to follow blood counts and renal function. Check TSH - previous TSH in 11/06 was 8.4 Reflex lactate pending. Wound clinic consult re: findings on lower R back SCD's for VTE ppx. Defer Lovenox given her thrombocytopenia. Pt requests DNR status. Care to return to Dr. Taveras on DC. 18 Cont Rocephin day #2 for E. coli UTI - sensitivities pending. Lactate trending down 2.7 --> 1.7. Afebrile; WBC normal. Viral resp panel pending. TSH was 2.8; improving. Weight trending up; resp status stable. Cont Bumex. Renal function improving; cr 1.5 --> 1.4 (baseline approx 1.1) Tylenol, heating pad for back pain. With encephalopathy would not recommend narcotics. Increase bowel regimen. 08/21/17 Cont Rocephin day #3 for E. coli UTI - pansensitive. Afebrile; WBC normal. Weight down (86.2-->84.4kg) rom yesterday but up from baseline (Baseline 78-80 kg). Resp status stable. Cont Bumex. Renal function is still above baseline at 1.5 (baseline approx 1.1). Sodium continues to be slightly elevated 146-->145. Tylenol, heating pad for back pain. With continued significant drowsiness will cut back on narcotics. She is on long-acting oxy routinely, will decrease [place] from 10 mg every 8 hours when necessary to 5 mg every 6 hours when necessary. No BM since admission. Diffuse mild tenderness and some distention. Give Dulcolax suppository now. Continue bowel regimen. Ultrasound to mass on right lower back revealed lipoma. Will keep pressure off of this area and see if pain improves. Would defer surgical intervention at this time. If symptoms do not improve with keeping pressure off of the area would consider surgical intervention at that time. Will cancel surgical consult with Dr. Barboza. Discussed with him. Plan 08/22/17 Cont Rocephin day #4 for E. coli UTI - pansensitive. Afebrile; WBC normal. Patient continues to appear ill. Generalized pain is concerning as well. Generalized weakness is also concerning, however I am unsure of her baseline. Concern for secondary acute viral illness, versus a polymyalgia rheumatica picture. I suspect that she may have an underlying inflammatory disorder given the fact she is on daily prednisone at home. Assess CPK to rule out myopathy. Assess CRP, and also send out a sedimentation rate to further evaluate for PMR. Increase her prednisone to 20 mg daily to see if that helps with her weakness and pain. Get a PT evaluation. She will likely have a reactive leukocytosis with increase in steroids. She does appear dehydrated, acute kidney injury persists. We'll provide gentle IV fluids, one half normal saline, 500 mls only and repeat labs in the morning. We'll continue her current Bumex and Aldactone, but we may need to back that down a bit if persist. She does have known paroxysmal atrial fibrillation, rate is controlled on telemetry. Continue supportive care. At this point, we need to continue inpatient monitoring and telemetry see some improvement in her symptoms. She continues to have pain in that right cyst, sacral area. Going to continue to monitor for now. Does not appear acutely infected. She has been fairly significantly evaluated regarding her low back pain, will defer further imaging at this time. Repeat labs in the morning. CODE STATUS: DO NOT RESUSCITATE.
[2017-08-22] MEDS ORDERED: PredniSONE 20 MG TABLET PO SCH (12:43)
[2017-08-22] MEDS ORDERED: 1/2 NS 1,000 ML IV SCH (12:45)
--- NOTE | 2017-08-22 14:06 | Discharge Summary ---
Discharge Information Date of admission: 08/19/17 10:52 Anticipated date of discharge: 08/22/17 Attending Physician: Vero Cruz MD Primary care physician: Sadie Taveras DO Consults: 08/19/17 12:15 [facility] Consult [CONS] Routine Reason for consultation: pressure areas on toes- RED. upper right glute knot with open wound surface 08/20/17 10:51 Doctor [Physician Consult] [CONS] Routine Consulting Provider: Obdulio Mccracken Reason For Exam: CONTINUED CARE Ordering Provider has Notified Break Off Worker: Yes - Discharge Diagnosis (1) Urinary tract infection Status: Acute Severe sepsis (lactate 2.7) secondary to E. coli UTI L sided sinusitis Painful lump on lower back - r/o abscess vs stage 1 pressure ulcer over a lipoma /fibroma Encephalopathy RONAL on CKD Hypernatremia not POA Macrocytic anemia -DARYL Chronic anemia and thrombocytopenia. Was discussed with Dr. Zuniga during previous hospitalization. Currently unknown if this was ever worked up. 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 The ventricles are stable. There is no evidence of acute intracranial hemorrhage, midline displacement, or mass effect. There are scattered areas of low attenuation in the white matter which most likely represent changes of chronic microvascular ischemia. The CT attenuation of the brain parenchyma is otherwise normal within the cerebellum, brain stem, and cerebral hemispheres. The tympanic cavities and mastoid air cells are free of appreciable disease. There are no definite fractures of the skull base, calvarium, or visualized portion of the midface. Complete opacification of the left maxillary and left sphenoid sinuses with mucosal thickening in the left anterior ethmoid air cells as well. IMPRESSION: No CT evidence of acute traumatic intracranial injury. Left-sided sinusitis. . 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 No evidence of an abscess or acute hematoma. . History of Present Illness HPI: Patient is an 81yo female who presents to ED via the [facility] due to progressive weakness, confusion and a fall yesterday. She is from [place]. PCP is Dr. Taveras. She tells me she is here b/c she slid off her chair yesterday and she is weak. She was dx'd with sepsis and UTI in ER and was given a dose of cefipime and a liter of NS. Her head CT was positive for L sided sinusitis (completely opacified maxillary and sphenoid sinuses and thickening in the L anterior ethmoid air cells.). UA was positive and culture is pending. CXR neg. WBC nl. She has 0 SIRS criteria and qSOFA score is 0 at time of admission interview. She denies urinary sxs. States she has had facial pain and headache, yet, on exam, has no significant sinus tenderness. She reports a recent h/o sudden back pain with opening a dresser drawer and states she has been working with PT for her back. Has chronic back pain. States she is on chronic prednisone for her chronic back pain. Objective Vital signs: Temperature 98.9 F 08/22/17 07:40 Pulse Rate 59 L 08/22/17 08:00 Respiratory Rate 16 08/22/17 07:40 Blood Pressure 111/54 08/22/17 07:40 Pulse Oximetry 97 08/22/17 07:40 Height/Weight/BMI: Height 1.63 m Weight 84.4 kg Body Mass Index 31.4 Comments: See Progress note for today. Hospital Course This is a general summary of the patient's hospital course. For more details refer to the complete medical record. Hospital course: 08/19/17 Admit, IP. Stay expected to exceed two overnights due to infection/elevated lactate and comorbidities. Given 1L NS in ER. Bolus another 500nl NS. Cefipime given in ER. Dr. Cruz to determine further antibiotic tx. Check troponin and EKG. Repeat CBC and BMP in am to follow blood counts and renal function. Check TSH - previous TSH in 11/06 was 8.4 Reflex lactate pending. Wound clinic consult re: findings on lower R back SCD's for VTE ppx. Defer Lovenox given her thrombocytopenia. Pt requests DNR status. Care to return to Dr. Taveras on DC. 5 Cont Rocephin day #2 for E. coli UTI - sensitivities pending. Lactate trending down 2.7 --> 1.7. Afebrile; WBC normal. Viral resp panel pending. TSH was 2.8; improving. Weight trending up; resp status stable. Cont Bumex. Renal function improving; cr 1.5 --> 1.4 (baseline approx 1.1) Tylenol, heating pad for back pain. With encephalopathy would not recommend narcotics. Increase bowel regimen. 08/21/17 Cont Rocephin day #3 for E. coli UTI - pansensitive. Afebrile; WBC normal. Weight down (86.2-->84.4kg) rom yesterday but up from baseline (Baseline 78-80 kg). Resp status stable. Cont Bumex. Renal function is still above baseline at 1.5 (baseline approx 1.1). Sodium continues to be slightly elevated 146-->145. Tylenol, heating pad for back pain. With continued significant drowsiness will cut back on narcotics. She is on long-acting oxy routinely, will decrease [place] from 10 mg every 8 hours when necessary to 5 mg every 6 hours when necessary. No BM since admission. Diffuse mild tenderness and some distention. Give Dulcolax suppository now. Continue bowel regimen. Ultrasound to mass on right lower back revealed lipoma. Will keep pressure off of this area and see if pain improves. Would defer surgical intervention at this time. If symptoms do not improve with keeping pressure off of the area would consider surgical intervention at that time. Will cancel surgical consult with Dr. Barboza. Discussed with him. Plan 08/22/17 Cont Rocephin day #4 for E. coli UTI - pansensitive. Afebrile; WBC normal. Patient continues to appear ill. Generalized pain is concerning as well. Generalized weakness is also concerning, however I am unsure of her baseline. Concern for secondary acute viral illness, versus a polymyalgia rheumatica picture. I suspect that she may have an underlying inflammatory disorder given the fact she is on daily prednisone at home. Assess CPK to rule out myopathy. Assess CRP, and also send out a sedimentation rate to further evaluate for PMR. Increase her prednisone to 20 mg daily to see if that helps with her weakness and pain. Get a PT evaluation. She will likely have a reactive leukocytosis with increase in steroids. She does appear dehydrated, acute kidney injury persists. We'll provide gentle IV fluids, one half normal saline, 500 mls only and repeat labs in the morning. We'll continue her current Bumex and Aldactone, but we may need to back that down a bit if persist. She does have known paroxysmal atrial fibrillation, rate is controlled on telemetry. Continue supportive care. At this point, we need to continue inpatient monitoring and telemetry see some improvement in her symptoms. She continues to have pain in that right cyst, sacral area. Going to continue to monitor for now. Does not appear acutely infected. She has been fairly significantly evaluated regarding her low back pain, will defer further imaging at this time. Repeat labs in the morning. CODE STATUS: DO NOT RESUSCITATE. Update: D/W Dr. Cruz. Patient has been relatively stable, and is near baseline. Concern for PMR- Dismiss on increased Prednisone of 20mg for 5-7 days, then consider tapering down to 10mg. ESR is pending. CRP is elevated 85.4. CPK 147- push fluids. Will decrease her diuretics briefly upon dismissal. Will need to be seen in the next 3-5 days. F/U labs next week. Monitor solid mass area (lipoma?) on back for breakdown. Time spent with patient: greater than 35 minutes Resuscitation Status: Do Not Resuscitate Discharge Plan - Discharge Disposition Discharge Date: 08/22/17 Disposition: 04 To [facility] Home/Facility *Condition: Stable Reason For Visit (Visit label in EMR): Sepsis, UTI - Discharge Medications *Discharge Medications: New PredniSONE [Deltasone 20 mg] 20 mg PO WB #15 tab CephALEXin [Keflex 500 mg] 500 mg PO TID 5 Days #15 cap Continue Hydrocodone/APAP 10/325 [[place] 10/325] 1 tab PO Q6H PRN PRN Reason: Pain Donepezil [Aricept 5 mg] 10 mg PO HS Capsaicin [Arthritis Pain Relieving] 1 patch TP TID PRN PRN Reason: Pain Baclofen [Lioresal] 10 mg PO TID PRN PRN Reason: Muscle Spasm Loratadine [Claritin] 10 mg PO DAILY PRN PRN Reason: Congestion Spironolactone [Aldactone 25 mg] 25 mg PO DAILY guaiFENesin [Mucinex] 600 mg PO Q12H PRN PRN Reason: Nasal Congestion Loperamide HCl [Imodium A-D] 2 mg PO QID PRN PRN Reason: Diarrhea Ondansetron [Zofran Odt] 4 mg PO Q4HR PRN PRN Reason: Nausea &/Or Vomiting Melatonin 10 mg PO HS Acetaminophen 650 mg PO Q4H PRN PRN Reason: Pain Sertraline [Zoloft] 100 mg PO DAILY Saliva Substitute Combo No.9 [Biotene] 1 applicatio MM PRN PRN PRN Reason: Dry Mouth Pramipexole [Mirapex] 1 mg PO DAILY Oxymetazoline Nasal [place] [Afrin Nasal [place]] 2 spray NS PRN PRN PRN Reason: Dry Nasal Passages Ospemifene [Osphena] 60 mg PO DAILY Carboxymethylcellulose Sodium [Refresh Plus] 1 drop EACH EYE TID PRN PRN Reason: Dry Eyes Mirabegron [Myrbetriq] 25 mg PO DAILY Hydrocortisone [Cortisone] 1 applicatio TP QID PRN PRN Reason: Rash Bacitracin [Bacitraycin Plus] 1 applicatio TP QID PRN PRN Reason: Prn Orders Divalproex [Depakote] 250 mg PO DAILY Amiodarone HCl [Pacerone] 100 mg PO DAILY Levothyroxine Sodium 112 mcg PO ACB #0 Omeprazole 20 mg PO DAILY #0 Oxycodone CR [Oxycontin] 15 mg PO Q12H Peg [address] Bott[address] [Miralax] 17 gm PO DAILY PRN PRN Reason: Constipation Atenolol [Tenormin] 50 mg PO DAILY Changed Potassium Chloride [MICRO-K 10 mEq Capsule] 20 meq PO DAILY #30 Bumetanide 1 mg PO DAILY #0 Discontinued PredniSONE [Deltasone 5 mg] 5 mg PO WB Ondansetron HCl [Zofran] 8 mg PO Q8H PRN PRN Reason: Nausea &/Or Vomiting - Discharge Packet/Instructions *Diet: Resume previous diet *Activity: Resume previous activity *Pain Management/Treatment: See MAR *Wound Care: Resume previous wound care orders. Additional Instructions: CBC, CMP, CPK, CRP next lab day *Expected Signs/Symptoms: Generalized pain. Low grade fever *Notify Physician if: Fever over 101. Any other concerns or per nursing protocol. *During Business Hours Contact: Food And Beverage Controller *After Business Hours Contact: Food And Beverage Controller *Pending Lab/Results: Follow up w/Provider - Referrals/Follow Up *Referrals/Follow Up: Niki Bolden MD [Physician] - 1 Week - Patient Handouts Patient Handouts: Urinary Tract Infection in Women (GEN), Sepsis (GEN) - Dismissal Complete Discharge Instructions are:: Complete Physician Narrative - Narrative Attestation Narrative: Date: 08/22/17 Time: 1603 Pt doing well on day of discharge and close to baseline. Plan was discussed with daughter in law who was present at discharge. The points below, among other things, were discussed with family and pt as things to monitor and follow up. UTI-Finish out abx course Possible PMR-Increased prednisone to 20mg daily, if sx's improve than very likely dx, PCP will need to f/u Kidney Function-Cr 1.4 and stable, baseline ~1.2 per chart review, recommend repeat labs early next week with f/u with pcp Pain meds-Recommend titrating down her long acting pain medication as this is likely the reason for her drowsiness, pt reported complex hx of back pain and so it was discussed with her that it was best if titrating down of her pain meds was left to her pcp. Pt is increased risk of falls if the pain meds cont. to cause her drowsiness Right Buttocks Lump-US showed solid lesion, likely lipoma and pt reports it has been there for months and is stable, would recommend following up with pcp and possibly getting referral.
--- NOTE | 2017-08-22 15:04 | Extended Care Facility Orders ---
Admission Orders Admit to:: [facility] Allergies/Adverse Reactions: Allergies phenylbutazone Allergy (Mild, Verified 08/19/17 08:57) HIVES (BUTAZOLIDIN - MANU DISC) lansoprazole Adverse Reaction (Mild, Verified 08/19/17 08:57) DIARRHEA Admitting Diagnosis: Sepsis, UTI Admitting Physician: Vero Cruz MD Attending Physician: Vero Cruz MD Code Status: Do Not Resuscitate Diet: 08/19/17 Dinner Cardiac Diet [DIET] Sodium Restriction: 2GRAM Fat Content: LOW Care Home Certification: I certify that SNF services are required to be given on an Inpatient basis because of the patients need for penitentiary care on a continuing basis for the condition(s) for which he/she received inpatient hospital services prior to his/her transfer to the SNF. SNF inpatient care is necessary for the following reasons - Additional Information Referrals: Niki Bolden MD [Physician] - 1 Week
[2017-08-22 15:30] VITALS: BP 115/55; PULSE 60; TEMP 98.1; O2SAT 95
[2017-08-22] MEDS: CEFTRIAXONE 1 G in NS 100 ML IV SCH (15:45)
[2017-08-23] MEDS ORDERED: PRAMIPEXOLE 1 MG TABLET PO SCH (08:00)
== END 2017-08-22 16:10 | DRG 871 ==
LOC: ED 08:46 → SUATTDRO 10:52 → EDHOLD 10:52 → MED 11:30
PROVIDERS: ADMIT Internal Medicine; ATTEND Internal Medicine